=== PATIENT | male | born 1970 | race Caucasian/White ===

== ENCOUNTER 2017-01-18 17:02 | Observation (INO) | payer BC ==
--- NOTE | 2017-01-18 20:35 | PDOC ---
History of Present Illness - General Chief Complaint: Nausea/Vomiting Stated Complaint: CHEST PAIN Time Seen by Provider: 01/18/17 20:35 History Source: Patient - History of Present Illness Initial Comments: 01/18/17 21:46 36-year-old male with a history of diabetes presents to the emergency department complaining of epigastric abdominal discomfort described as 6/10 dull intermittent discomfort which radiates to the mid sternal chest region and right upper quadrant abdominal discomfort 6 days. Pain is exacerbated on movement and there are no alleviating factors. This discomfort is associated with nausea and vomiting 5 days that are nonbilious/nonbloody. Patient denies fever/chills/diarrhea, jaw pains, neck pains, extremity numbness or tingling sensation, shortness of breath, flank pains or urinary symptoms. Past History - Past Medical History Allergies/Adverse Reactions: Allergies Allergy/AdvReac Type Severity Reaction Status Date / Time lactose Allergy Unknown Verified 01/18/17 17:37 lactose intolerance AdvReac Uncoded 01/18/17 17:37 Home Medications: Ambulatory Orders NK [No Known Home Medication] 01/18/17 Anemia: No Asthma: No Cancer: No Cardiac Disorders: Yes (DVT) CVA: No COPD: No CHF: No Dementia: No Diabetes: Yes (MYONECROSIS R FOOT, LEFT FOOT ULCER) GI Disorders: (REFLUX) Disorders: No HTN: Yes Hypercholesterolemia: No Liver Disease: No Suicide Attempt (Hx): No Seizures: No Thyroid Disease: No - Surgical History Abdominal Surgery: No Appendectomy: No Cardiac Surgery: No Cholecystectomy: No Lung Surgery: No Neurologic Surgery: No Orthopedic Surgery: No - Family Disease History Family Disease History: Diabetes: Father - Immunization History Immunization Up to Date: Yes - Psycho/Social/Smoking Cessation Hx Anxiety: No Suicidal Ideation: No Smoking Status: No Smoking History: Never smoked Have you smoked in the past 12 months: No Number of Cigarettes Smoked Daily: 0 Information on smoking cessation initiated: No Hx Alcohol Use: No Drug/Substance Use Hx: No Substance Use Type: Alcohol Hx Substance Use Treatment: No Review of Systems - Review of Systems Able to Perform ROS?: Yes Comments:: 01/18/17 21:44 CONSTITUTIONAL: Absent: fever, chills, diaphoresis, generalized weakness, malaise, loss of appetite HEENT: Absent: rhinorrhea, nasal congestion, throat pain, throat swelling, difficulty swallowing, mouth swelling, ear pain, eye pain, visual Changes CARDIOVASCULAR: +CP Absent: loss of consciousness, palpitations, irregular heart rate, peripheral edema RESPIRATORY: Absent: cough, shortness of breath, dyspnea with exertion, orthopnea, wheezing, stridor, hemoptysis GASTROINTESTINAL: +epigastric/RUQ abdominal pain Absent: abdominal distension, nausea, vomiting, diarrhea, constipation, melena, hematochezia GENITOURINARY: Absent: dysuria, frequency, urgency, hesitancy, hematuria, flank pain, genital pain MUSCULOSKELETAL: Absent: myalgia, arthralgia, joint swelling SKIN: Absent: rash, itching, pallor HEMATOLOGIC/IMMUNOLOGIC: Absent: easy bleeding, easy bruising, lymphadenopathy, frequent infections ENDOCRINE: Absent: unexplained weight gain, unexplained weight loss, heat intolerance, cold intolerance NEUROLOGIC: Absent: headache, focal weakness or paresthesias, dizziness, unsteady gait, seizure, mental status changes, bladder or bowel incontinence PSYCHIATRIC: Absent: anxiety, depression, suicidal or homicidal ideation, hallucinations. Is the patient limited [place] proficient: No *Physical Exam - Vital Signs Last Vital Signs Temp Pulse Resp BP Pulse Ox 98.7 F 104 H 16 117/101 100 01/18/17 17:13 01/18/17 17:13 01/18/17 17:13 01/18/17 17:13 01/18/17 17:13 - Physical Exam Comments: 01/18/17 21:46 GENERAL: Well developed, well nourished. Awake and alert. No acute distress. HEENT: Normocephalic, atraumatic. PERRLA, EOMI. No conjunctival pallor. Sclera are non- icteric. Moist mucous membranes. Oropharynx is clear. NECK: Supple. Full ROM. No JVD. Carotid pulses 2+ and symmetric, without bruits. No thyromegaly. No lymphadenopathy. CARDIOVASCULAR: Regular rate and rhythm. No murmurs, rubs, or gallops. Distal pulses are 2+ and symmetric. PULMONARY: No evidence of respiratory distress. Lungs clear to auscultation bilaterally. No wheezing, rales or rhonchi. ABDOMINAL: Soft. Non-tender. Non-distended. No rebound or guarding. No organomegaly. Normoactive bowel sounds. MUSCULOSKELETAL Normal range of motion at all joints. No bony deformities or tenderness. No CVA tenderness. EXTREMITIES: No cyanosis. No clubbing. No edema. No calf tenderness. SKIN: Warm and dry. Normal capillary refill. No rashes. No jaundice. NEUROLOGICAL: Alert, awake, appropriate. Cranial nerves 2-12 intact. No deficits to light touch and temperature in face, upper extremities and lower extremities. No motor deficits in the in face, upper extremities and lower extremities. Normoreflexic in the upper and lower extremities. Normal speech. Toes are down- going bilaterally. Gait is normal without ataxia. PSYCHIATRIC: Cooperative. Good eye contact. Appropriate mood and affect. Heart Score/ECG Review - History History: Slightly suspicious - Electrocardiogram EKG: Normal - Age Age: >/= 65 - Risk Factors Risk Factors Heart Score: Yes Hx Diabetes Based on the list above the patient has:: 1-2 risk factors - Troponin Troponin: </= normal limit - Score Heart Score - Total: 3 ED Treatment Course - LABORATORY CBC & Chemistry Diagram: 01/18/17 20:13 01/19/17 00:42 - RADIOLOGY Radiograph Interpretation: 01/19/17 00:[address] abd/pelvis with PO/IV contrast: *DC/Admit/Observation/Transfer Diagnosis at time of Disposition: Duodenitis, Hypokalemia Intractable vomiting with nausea Qualifiers: Vomiting type: unspecified Qualified Code(s): R11.2 - Nausea with vomiting, unspecified - Discharge Dispostion Condition at time of disposition: Guarded Admit: Yes
[2017-01-18] MEDS ORDERED: SODIUM CHLORIDE 1,000 ML IV STA (20:37)
[2017-01-18] MEDS ORDERED: ONDANSETRON 4 MG/2 ML VIAL IVPUSH ONE (20:37)
[2017-01-18] MEDS ORDERED: ONDANSETRON 4 MG/2 ML VIAL ONE (20:38)
[2017-01-18 20:48] LABS: BASOPHIL 0.4 % (0-2.0); EOSINOPHIL 0.4 % (0-4.5); MCH 22.7 pg (25.7-33.7); MCHC 30.8 g/dl (32.0-35.9); MEAN CELL VOLUME 73.6 fl (80-96); MEAN PLT VOLUME 8.7 fl (7.5-11.1); NEUTROPHILS 83.4 % (42.8-82.8); PLATELET COUNT 353 K/MM3 (134-434); RDW 16.8 % (11.9-15.9); WHITE BLOOD COUNT 7.4 K/mm3 (4.0-10.0)
[2017-01-18] MEDS ORDERED: HYDROmorphone HCL CARPU-JECT 2 MG/1 ML DISP.SYRIN IVPUSH ONE (21:00)
[2017-01-18 21:07] LABS: AMYLASE 20 U/L (25-115)
--- NOTE | 2017-01-18 21:09 | PDOC ---
*Physical Exam - Vital Signs Last Vital Signs Temp Pulse Resp BP Pulse Ox 98.7 F 104 H 16 117/101 100 01/18/17 17:13 01/18/17 17:13 01/18/17 17:13 01/18/17 17:13 01/18/17 17:13 ED Treatment Course - LABORATORY CBC & Chemistry Diagram: 01/19/17 07:55 01/19/17 07:55 - ADDITIONAL ORDERS Additional order review: 01/18/17 20:13 RBC 5.35 D MCV 73.6 L MCHC 30.8 L RDW 16.8 H MPV 8.7 Neutrophils % 83.4 H Lymphocytes % 10.3 D Monocytes % 5.5 Eosinophils % 0.4 Basophils % 0.4 - Medications Given in the ED: ED Medications Discontinued Medications Generic Name Dose Route Start Last Admin Trade Name Freq PRN Reason Stop Dose Admin Ondansetron HCl 8 mg 01/18/17 20:37 01/18/17 20:50 Zofran Injection IVPUSH 01/18/17 20:38 8 mg ONCE ONE Administration Medical Decision Making - Medical Decision Making 01/18/17 21:09 agree with care from RICARDO Valentine *DC/Admit/Observation/Transfer Diagnosis at time of Disposition: Duodenitis, Intractable vomiting with nausea, Hypokalemia - Discharge Dispostion Condition at time of disposition: Guarded
[2017-01-18 21:12] LABS: ALBUMIN 2.2 g/dl (3.4-5.0); ANION GAP 16 (8-16); BILIRUBIN,TOTAL 0.5 mg/dL (0.2-1.0); CALCIUM 8.5 mg/dL (8.5-10.1); CO2 24 mmol/L (21-32); COCKROFT - GAULT 114.71; CREATININE 1.2 mg/dL (0.7-1.3); SGOT/AST 17 U/L (15-37); SGPT/ALT 10 U/L (12-78); TOT PROT 6.2 g/dl (6.4-8.2)
[2017-01-18 21:13] LABS: ALK PHOS 135 U/L (45-117)
[2017-01-18 21:16] LABS: GLUCOSE,RANDOM 482 mg/dL (74-106)
[2017-01-18] MEDS ORDERED: HYDROmorphone HCL CARPU-JECT 1 MG/1 ML DISP.SYRIN ONE (21:19)
[2017-01-18] MEDS ORDERED: INSULIN REGULAR HUMAN 100 UNITS/ML *VIAL IVPUSH ONE (21:19)
[2017-01-18] MEDS ORDERED: INSULIN (NOVOLOG) ASPART 100 UNITS/ML 10ML VIAL ONE (21:20)
[2017-01-18 21:42] LABS: TROPONIN I < 0.02 ng/ml (0.00-0.05)
[2017-01-18] MEDS ORDERED: POTASSIUM CHLORIDE TABS 20 MEQ TABLET.ER (FP) PO ONE (23:17)
[2017-01-19] MEDS ORDERED: POTASSIUM CHLORIDE TABS 20 MEQ TABLET.ER (FP) PO ONE (00:01)
[2017-01-19] MEDS ORDERED: METOCLOPRAMIDE HCL INJECTION 10 MG/2 ML VIAL IVPUSH ONE (00:09)
[2017-01-19] MEDS ORDERED: METOCLOPRAMIDE HCL INJECTION 10 MG/2 ML VIAL ONE (00:13)
[2017-01-19 02:03] LABS: ALBUMIN 2.1 g/dl (3.4-5.0); ALK PHOS 130 U/L (45-117); ANION GAP 15 (8-16); BILIRUBIN,TOTAL 0.4 mg/dL (0.2-1.0); CALCIUM 8.1 mg/dL (8.5-10.1); CO2 25 mmol/L (21-32); COCKROFT - GAULT 152.94; CREATININE 0.9 mg/dL (0.7-1.3); GLUCOSE,RANDOM 284 mg/dL (74-106); SGOT/AST 13 U/L (15-37); SGPT/ALT 10 U/L (12-78); TOT PROT 5.8 g/dl (6.4-8.2)
[2017-01-19] MEDS ORDERED: PANTOPRAZOLE SODIUM 40 MG in SODIUM CHLORIDE 100 ML IVPB ONE (02:11)
[2017-01-19] MEDS ORDERED: PANTOPRAZOLE SODIUM 200 ML IVPB ONE (02:36)
[2017-01-19] MEDS ORDERED: ONDANSETRON 4 MG/2 ML VIAL IVPB PRN (02:41)
[2017-01-19] MEDS ORDERED: LORAZEPAM CARPU-JECT 2 MG/ML DISP.SYRIN IVPUSH ONE (02:42)
[2017-01-19] MEDS ORDERED: LORAZEPAM CARPU-JECT 2 MG/ML DISP.SYRIN ONE (02:47)
[2017-01-19] MEDS ORDERED: ONDANSETRON *ODT* 4 MG TABLET ONE (02:47)
[2017-01-19] MEDS ORDERED: KCL 10 MEQ IVPB 300 ML IVPB ONE (02:49)
[2017-01-19] MEDS: KCL 10 MEQ IVPB 100 ML IVPB SCH ×3 (03:00→06:12)
[2017-01-19] MEDS ORDERED: METOCLOPRAMIDE HCL INJECTION 10 MG/2 ML VIAL IVPB PRN (03:13)
[2017-01-19] MEDS ORDERED: LORAZEPAM CARPU-JECT 2 MG/ML DISP.SYRIN IVPUSH PRN (03:22)
--- NOTE | 2017-01-19 03:24 | HP ---
CHIEF COMPLAINT: Abdominal pain, N/V PCP: none, Endocrine: Dr. Warren HISTORY OF PRESENT ILLNESS: This is a 46 year old male with a past medical history of DM, L BKA, GERD w/ ulcers, HTN, ETOH who presented with abdominal pain with nausea and vomiting that has not responded fully to treatment. Pt states the pain is improved, but the nausea and vomiting persist. ER course was notable for: (1) K 3.3, Gluc 482 (2) Given 1L NS (3) Given dilaudid 2mg, zofran 8, reglan 10 Recent Travel: pt denies PAST MEDICAL HISTORY: DM - does not take meds, refused in past right elbow infection- ? nec fasc, txfr to [facility] necrotizing soft tissue infection left buttock--MRSA GERD w/ h/o ulcers as per pt HTN PAST SURGICAL HISTORY: L BKA 2012 R 4th toe amputation extensive I&D right elbow infection Social History: Smoking: occ- less than 5 cig/week Alcohol: 5-6 drinks daily, last drink Monday or Monday Drugs: cocaine last week, denies habitual use Family History: unknown, pt adopted Allergies lactose Allergy (Unknown, Verified 01/18/17 17:37) lactose intolerance Adverse Reaction (Uncoded 01/18/17 17:37) HOME MEDICATIONS: 3 Medication Instructions Recorded NK [No Known Home Medication] 01/18/17 REVIEW OF SYSTEMS CONSTITUTIONAL: Absent: fever, chills, diaphoresis, generalized weakness, malaise, loss of appetite, weight change HEENT: Absent: rhinorrhea, nasal congestion, throat pain, throat swelling, difficulty swallowing, mouth swelling, ear pain, eye pain, visual changes CARDIOVASCULAR: Present: chest pain Absent: syncope, palpitations, irregular heart rate, lightheadedness, peripheral edema RESPIRATORY: Absent: cough, shortness of breath, dyspnea with exertion, orthopnea, wheezing, stridor, hemoptysis GASTROINTESTINAL: Present: abdominal pain, nausea, vomiting Absent: abdominal distension, diarrhea, constipation, melena, hematochezia GENITOURINARY: Absent: dysuria, frequency, urgency, hesitancy, hematuria, flank pain, genital pain MUSCULOSKELETAL: Absent: myalgia, arthralgia, joint swelling, back pain, neck pain SKIN: Absent: rash, itching, pallor HEMATOLOGIC/IMMUNOLOGIC: Absent: easy bleeding, easy bruising, lymphadenopathy, frequent infections ENDOCRINE: Absent: unexplained weight gain, unexplained weight loss, heat intolerance, cold intolerance NEUROLOGIC: Absent: headache, focal weakness or paresthesias, dizziness, unsteady gait, seizure, mental status changes, bladder or bowel incontinence PSYCHIATRIC: Absent: anxiety, depression, suicidal or homicidal ideation, hallucinations. PHYSICAL EXAMINATION Vital Signs - 24 hr 3 01/18/17 01/19/17 17:13 00:30 Temperature 98.7 F 97.6 F Pulse Rate 104 H Pulse Rate [ 93 H Right] Respiratory 16 16 Rate Blood Pressure 117/101 Blood Pressure 156/108 [Left Arm] O2 Sat by Pulse 100 100 Oximetry (%) GENERAL: Awake, alert, and fully oriented, in no acute distress. HEAD: Normal with no signs of trauma. EYES: Pupils equal, round and reactive to light, extraocular movements intact, sclera anicteric, conjunctiva clear. No lid lag. EARS, NOSE, THROAT: Ears normal, nares patent, oropharynx clear without exudates. Moist mucous membranes. NECK: Normal range of motion, supple without lymphadenopathy, JVD, or masses. LUNGS: Breath sounds equal, clear to auscultation bilaterally. No wheezes, and no crackles. No accessory muscle use. HEART: Regular rate and rhythm, normal S1 and S2 without murmur, rub or gallop. ABDOMEN: Soft, not distended, normoactive bowel sounds, no guarding, no rebound , no masses. No hepatomegaly or splenomegaly. + tenderness to epigastric area and LUQ MUSCULOSKELETAL: Normal range of motion at all joints. No bony deformities or tenderness. No CVA tenderness. UPPER EXTREMITIES: 2+ pulses, warm, well-perfused. No cyanosis. No clubbing. No peripheral edema. Right arm with surgical scars, healed LOWER EXTREMITIES: 2+ pulses, warm, well-perfused. No calf tenderness. No peripheral edema. Left BKA, right 4th toe amputation, all healed NEUROLOGICAL: Cranial nerves II-XII intact. Normal speech. Normal gait. PSYCHIATRIC: Cooperative. Good eye contact. Appropriate mood and affect. SKIN: Warm, dry, normal turgor, no rashes or lesions noted, normal capillary refill. Laboratory Results - last 24 hr 3 01/18/17 01/18/17 01/18/17 20:13 20:13 20:13 WBC 7.4 D RBC 5.35 D Hgb 12.1 D Hct 39.4 D MCV 73.6 L MCHC 30.8 L RDW 16.8 H Plt Count 353 D MPV 8.7 Neutrophils % 83.4 H Lymphocytes % 10.3 D Monocytes % 5.5 Eosinophils % 0.4 Basophils % 0.4 Sodium 135 L D Potassium 3.3 L Chloride 95 L Carbon Dioxide 24 D Anion Gap 16 BUN 11 D Creatinine 1.2 D Creat Clearance w eGFR > 60 POC Glucometer Random Glucose 482 H* D Calcium 8.5 D Total Bilirubin 0.5 D AST 17 ALT 10 L D Alkaline Phosphatase 135 H D Creatine Kinase Troponin I Total Protein 6.2 L Albumin 2.2 L Total Amylase 20 L Lipase 135 3 01/18/17 01/18/17 01/19/17 21:24 23:01 00:42 WBC RBC Hgb Hct MCV MCHC RDW Plt Count MPV Neutrophils % Lymphocytes % Monocytes % Eosinophils % Basophils % Sodium 140 Potassium 3.2 L Chloride 100 Carbon Dioxide 25 Anion Gap 15 BUN 11 Creatinine 0.9 D Creat Clearance w eGFR > 60 POC Glucometer [phone] Random Glucose 284 H D Calcium 8.1 L Total Bilirubin 0.4 AST 13 L D ALT 10 L Alkaline Phosphatase 130 H Creatine Kinase 65 Troponin I < 0.02 Total Protein 5.8 L Albumin 2.1 L Total Amylase Lipase ECG: NSR, rate 96, QTC 505, no acute ST/T changes CT/ABDOMEN PELVIS CT WITH CONTR Epigastric pain. Questionable small bowel obstruction. No bowel movement for [address] scan of the abdomen and pelvis following oral and intravenous contrast. Coronal and sagittal reformatted images were obtained 96 cc of Omnipaque 350 was intravenously injected Comparison: Prior CT scan of the pelvis dated 06/02/2015 Visualized lung base appears unremarkable and the heart is within normal limits in size. Evaluation of the liver, spleen, pancreas, gallbladder, both adrenal glands and both kidneys appear unremarkable. There is nondistention of the duodenum up to its junction with the jejunum suggestive of wall thickening. The rest of the small bowel appears unremarkable. There is no evidence of small bowel obstruction. No enlarged retroperitoneal lymph nodes are identified. No free fluid or free air in the abdomen pelvis. Normal stool burden in the colon with a couple of diverticula at the junction of the distal descending and proximal sigmoid colon and without evidence of acute diverticulitis. Normal-appearing terminal ileum and appendix. Perirectal and pericecal fat is clear. Moderately distended urinary bladder without wall thickening. Normal size prostate gland. Visualized osseous structures appear intact. Impression: Nondistention with suggestion of thickening of the duodenum including its junction with the jejunum. Rule out duodenitis. Inflammatory versus infectious. No other CT evidence of an acute process in the abdomen and pelvis. Correlate clinically for further evaluation CHEST X-RAY PORTABLE* Chest and abdominal pain. Portable chest x-ray AP sitting. Since prior chest x-ray dated 07/20, the cardiac silhouette remains within normal limits in size. There are mild perihilar increased lung markings. Mediastinum and visualized osseous structures appear intact Impression No significant interval change or acute lung disease is present. ASSESSMENT/PLAN: 46yM with PMH DM, HTN, L BKA, GERD, ETOH presented with abdominal pain and N/V that has not fully responded to treatment. He is being admitted for further observation. abdominal pain, likely alcoholic gastritis/duodenitis - protonix 40mg IV QD - reglan 10mg q6h PRN - NPO for now, NS @ 125cc/hr - consider GI consult if not improving hypokalemia - likely due to excessive vomiting - tolerated po repletion, repeat CMP possibly drawn too early for value to increase, but further decline present - replete with 10mEq IVPB x 3 runs HTN - on no home medications, consider starting MAYA as he has been on same in past; however, pt noncompliant with same in past DM - cont BGM TIDAC / HS with novolog sliding scale - f/u with endocrine as outpatient as pt has always refused medications. ETOH - monitor for s/s withdrawal and tx DVT PPX - defer chemoprophylaxis for now FEN - NS @ 125cc/hr - repeat BMP inc mag and phos in am - NPO until no further vomiting Dispo: Pt currently requires inpatient observation for management of his emergent condition. Visit type - Emergency Visit Emergency Visit: Yes ED Registration Date: 01/18/17 Care time: The patient presented to the Emergency Department on the above date and was hospitalized for further evaluation of their emergent condition. - New Patient This patient is new to me today: Yes Date on this admission: 01/19/17 - Critical Care Critical Care patient: No
[2017-01-19] MEDS: LISINOPRIL 10 MG TABLET (FP) PO SCH ×2 (04:57→09:52)
[2017-01-19] MEDS: SODIUM CHLORIDE 1,000 ML IV SCH ×3 (05:01→13:59)
[2017-01-19] MEDS: INSULIN SLIDING SCALE (NOVOLOG) 1 VIAL SQ SCH ×5 (06:17→21:11)
[2017-01-19 07:01] VITALS: BMI 33.2
[2017-01-19 08:46] LABS: BASOPHIL 0.6 % (0-2.0); EOSINOPHIL 0.8 % (0-4.5); MCH 23.2 pg (25.7-33.7); MCHC 31.4 g/dl (32.0-35.9); MEAN PLT VOLUME 7.8 fl (7.5-11.1); NEUTROPHILS 78.2 % (42.8-82.8); PLATELET COUNT 361 K/MM3 (134-434); RDW 17.1 % (11.9-15.9); WHITE BLOOD COUNT 9.4 K/mm3 (4.0-10.0)
[2017-01-19 09:14] LABS: CALCIUM 8.4 mg/dL (8.5-10.1); COCKROFT - GAULT 153.81; CREATININE 0.9 mg/dL (0.7-1.3); MAGNESIUM 2.6 mg/dL (1.8-2.4); PHOSPHOROUS 2.3 mg/dL (2.5-4.9)
[2017-01-19] MEDS ORDERED: MAG HYDROX/AL HYDROX/SIMETH 30 ML UNIT-DOSE CUP PO PRN (11:45)
[2017-01-19] MEDS ORDERED: chlordiazePOXIDE HCL 25 MG CAPSULE PO PRN (11:55)
[2017-01-19] MEDS ORDERED: PANTOPRAZOLE SODIUM 100 ML IVPB SCH (12:00)
[2017-01-19] MEDS ORDERED: LIDOCAINE VISCOUS 2% ORAL/TOP 20 ML UNIT-DOSE CUP MM PRN (12:00)
--- NOTE | 2017-01-19 12:41 | EKG ---
Test Reason : Blood Pressure : / mmHG Vent. Rate : 096 BPM Atrial Rate : 096 BPM P-R Int : 142 ms QRS Dur : 078 ms QT Int : 400 ms P-R-T Axes : 056 016 010 degrees QTc Int : 505 ms NORMAL SINUS RHYTHM PROLONGED QT ABNORMAL ECG WHEN COMPARED WITH ECG OF 23-MAY-2016 21:13, QUESTIONABLE CHANGE IN QRS DURATION Confirmed by BIMAL SOARES MD ([id number]) on 01/19/2017 12:41:26 PM Referred By: Confirmed By:BIMAL SOARES MD
[2017-01-19] MEDS ORDERED: LABETALOL HCL 5 MG/1 ML (100MG/20 ML VIAL) IVPB ONE (14:15)
[2017-01-19] MEDS ORDERED: INSULIN (NOVOLOG) ASPART 100 UNITS/ML 10ML VIAL ONE (16:26)
[2017-01-19] MEDS ORDERED: SODIUM CHLORIDE 1,000 ML IV SCH (17:03)
[2017-01-19] MEDS ORDERED: PT OWN MED DRAWER 7, Y5N ONE (17:22)
[2017-01-20] MEDS: INSULIN SLIDING SCALE (NOVOLOG) 1 VIAL SQ SCH (06:39)
[2017-01-20 08:12] VITALS: BP 180/62; PULSE 95; TEMP 98.1
--- NOTE | 2017-01-20 09:53 | DS ---
Physical Exam: SUBJECTIVE: Patient seen and examined yesterday. Today, he signed himself out AMA before able to assess. Per RN complaining: "he wants to go home, eat a full meal, not clears, he would not wait any longer and wanted a prescription" OBJECTIVE: Vital Signs Period Temp Pulse Resp BP Sys/Monet Pulse Ox Last 24 Hr 98.0 F-99.2 F 79-107 18-20 136-180/62-110 98-99 PHYSICAL EXAM on 01/20 Neuro: alert, awake, cn 2-12intact, tearful Pulm: CTAB CV: s1 s2 rrr no mrg Abd: no tenderness, reported burning referring to chest Ext: L BKA, R arm graft healed Laboratory Results - last 24 hr 01/19/17 01/19/17 01/19/17 11:37 16:24 21:04 POC Glucometer 225 265 377 01/20/17 06:15 POC Glucometer 220 HOSPITAL COURSE: Date of Admission:01/19/17 Date of Discharge: 01/20/17 Minutes to complete discharge: 35 Discharge Summary Reason For Visit: DUONDENITIS HYPOKALEMIA INCTRACTABLE VOMIT Hospital Course: Initial Hospital Course: Briefly, this 46 year old male with a past medical history of DM, L BKA, GERD w / ulcers, HTN, ETOH presented with abdominal pain with nausea and vomiting and did not responded fully to treatment. Pt states the pain is improved, but the nausea and vomiting persisted. Subsequent Hospital Course/Progress Note/Discharge Summary: Patient was seen and examined yesterday 01/19. He was tearful in the bed saying he's very hungry and would like to eat. He said it hurt his chest when he talked and needed something for the burning. He was still vomiting light green clear vomitus Initially refusing any treatment he was given maalox and protonix IV, viscous lidocaine, IV reglan to which relieved his symptoms. For his elevated BP, labetaolol 10mg IVPB with appropriate response. He was feeling better and advanced to clear liquids. Following diet, he had x2 BM in the bed and was made NPO again. Per RN he refused IVF and continued to get into an argument with his . I discussed the plan of care and findings with his and she said he would like him to say in the hospital until he gets better. I discussed with the patient it would be in his best interest to stay in the hospital and not leave AMA. He would be at risk for electrolyte abnormalities, dehydration, heart arrhythmias and syncope, and . He said he would stay. This morning patient was inpatient requesting change in diet and wanting to go home. He was unwilling to wait, requested RN to remove IV's and signed out AMA. Condition: Guarded - Instructions Disposition: AGAINST MEDICAL ADVICE - Home Medications Comprehensive Discharge Medication List: Ambulatory Orders NK [No Known Home Medication] 01/18/17 This patient is new to me today: Yes Date on this admission: 01/20/17 Emergency Visit: Yes ED Registration Date: 01/19/17 Care time: The patient presented to the Emergency Department on the above date and was hospitalized for further evaluation of their emergent condition. Critical Care patient: No - Discharge Referral Referred to [facility] No
[2017-01-20] MEDS ORDERED: LISINOPRIL 10 MG TABLET (FP) PO SCH (10:00)
== END 2017-01-20 09:27 | disposition left against medical advice (07) ==
LOC: JER 17:02 → JERBED 01-19 02:13 → J7W 01-19 04:29
PROVIDERS: ADMIT Internal Medicine; ATTEND Nurse Practitioner Acute Care
PROC: 3E033NZ Introduction of Analgesics, Hypnotics, Sedatives into Peripheral Vein, Percutaneous Approach (ICD-10-PCS; principal; 2017-01-19)
PROC: 3E033VG Introduction of Insulin into Peripheral Vein, Percutaneous Approach (ICD-10-PCS; 2017-01-19)
PROC: 3E013VG Introduction of Insulin into Subcutaneous Tissue, Percutaneous Approach (ICD-10-PCS; 2017-01-19)
DX: K29.80 Duodenitis without bleeding (principal); E87.6 Hypokalemia; R11.2 Nausea with vomiting, unspecified; E11.9 Type 2 diabetes mellitus without complications; Z86.718 Personal history of other venous thrombosis and embolism; K21.9 Gastro-esophageal reflux disease without esophagitis; I10 Essential (primary) hypertension; Z89.512 Acquired absence of left leg below knee; Z89.421 Acquired absence of other right toe(s); F10.20 Alcohol dependence, uncomplicated
CPT/HCPCS: 36415; 71010-TC; 74177-TC; 80048; 80053; 82150; 82550; 83690; 83735; 84100; 84484; 85025; 93005; 93010; 99285-25; G0378; Q9967

== ENCOUNTER 2017-05-01 08:59 | Emergency (ER) | payer BC ==
[2017-05-01 09:09] VITALS: TEMP 98.1; BMI 31.5
--- NOTE | 2017-05-01 09:39 | PDOC ---
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 The patient states that due to recent weight loss he was placed in a slimmer prosthetic that has been irritating his leg. The patient noticed a small blister to his amputation 8 days ago which has since worsened, becoming more swollen, bleeding, and pussing but he denies any pain to the area. He reports that 5 days ago he went to his pharmacy and was given polysporin in which he said helped along with keeping off his prosthetic for a few days. The patient states that his has occurred in the past but caused sepsis. He denies any fever , chills, nausea, vomiting, diarrhea, cough, SOB, CP, or urinary symptoms. The patient has a history of MRSA. He is requesting to be followed up as an outpatient due to his upcoming vacation. The patient follows up with Costa Jennings at the wound center. <Kelsi Dimas - Last Filed: 05/01/17 12:47> <Caden Virgen - Last Filed: 05/01/17 13:25> - General Chief Complaint: Wound Stated Complaint: LT LEG WOUND Past History <Kelsi Dimas - Last Filed: 05/01/17 12:47> - Past Medical History Anemia: No Asthma: No Cancer: No Cardiac Disorders: Yes (DVT) CVA: No COPD: No CHF: No Dementia: No Diabetes: No (HYPOGLYCEMIC) GI Disorders: (REFLUX) Disorders: No HTN: Yes Hypercholesterolemia: No Liver Disease: No Suicide Attempt (Hx): No Seizures: No Thyroid Disease: No - Surgical History Abdominal Surgery: No Appendectomy: No Cardiac Surgery: No Cholecystectomy: No Lung Surgery: No Neurologic Surgery: No Orthopedic Surgery: No - Family Disease History Family Disease History: Diabetes: Father - Immunization History Immunization Up to Date: Yes - Psycho/Social/Smoking Cessation Hx Anxiety: No Suicidal Ideation: No Smoking Status: No Smoking History: Never smoked Have you smoked in the past 12 months: No Number of Cigarettes Smoked Daily: 0 Information on smoking cessation initiated: No Hx Alcohol Use: No Drug/Substance Use Hx: No Substance Use Type: Alcohol Hx Substance Use Treatment: No <PromiseCaden - Last Filed: 05/01/17 13:25> - Past Medical History Allergies/Adverse Reactions: Allergies Allergy/AdvReac Type Severity Reaction Status Date / Time No Known Allergies Allergy Verified 05/01/17 09:04 Home Medications: Ambulatory Orders Sulfamethoxazole/Trimethoprim [Bactrim Ds -] 1 tab PO BID #14 tablet 05/01/17 Review of Systems - Review of Systems Able to Perform ROS?: Yes Comments:: 05/01/17 10:33 GENERAL/CONSTITUTIONAL: No fever or chills. No weakness. HEAD, EYES, EARS, NOSE AND THROAT: No change in vision. No ear pain or discharge. No sore throat. CARDIOVASCULAR: No chest pain or shortness of breath. RESPIRATORY: No cough, wheezing, or hemoptysis. GASTROINTESTINAL: No nausea, vomiting, diarrhea or constipation. GENITOURINARY: No dysuria, frequency, or change in urination. MUSCULOSKELETAL: No joint or muscle swelling or pain. No neck or back pain. SKIN: Present: ulcer on left amputation site NEUROLOGIC: No headache, vertigo, loss of consciousness, or change in strength/ sensation. ENDOCRINE: No increased thirst. No abnormal weight change. HEMATOLOGIC/LYMPHATIC: No anemia, easy bleeding, or history of blood clots. ALLERGIC/IMMUNOLOGIC: No hives or skin allergy. All Other Systems: Reviewed and Negative <JudieKelsi - Last Filed: 05/01/17 12:47> *Physical Exam - Vital Signs Last Vital Signs Temp Pulse Resp BP Pulse Ox 98.1 F 90 18 151/100 100 05/01/17 09:04 05/01/17 09:04 05/01/17 09:04 05/01/17 09:04 05/01/17 09:04 - Physical Exam Comments: 05/01/17 10:35 GENERAL: Awake, alert, and fully oriented, in no acute distress HEAD: No signs of trauma EYES: PERRLA, EOMI, sclera anicteric, conjunctiva clear ENT: Auricles normal inspection, hearing grossly normal, nares patent, oropharynx clear without exudates. Moist mucosa NECK: Normal ROM, supple, no lymphadenopathy, JVD, or masses LUNGS: Breath sounds equal, clear to auscultation bilaterally. No wheezes, and no crackles HEART: Regular rate and rhythm, normal S1 and S2, no murmurs, rubs or gallops ABDOMEN: Soft, nontender, normoactive bowel sounds. No guarding, no rebound. No masses EXTREMITIES: 6 x 4 cm black eschar with erythematous margins and mild swelling on his left fibular stump. No clubbing or cyanosis. No cords, erythema, or tenderness NEUROLOGICAL: Cranial nerves II through XII grossly intact. Normal speech, normal gait SKIN: Warm, Dry <Kelsi Dimas - Last Filed: 05/01/17 12:47> - Vital Signs Last Vital Signs Temp Pulse Resp BP Pulse Ox 98.1 F 90 18 151/100 100 05/01/17 09:04 05/01/17 09:04 05/01/17 09:04 05/01/17 09:04 05/01/17 09:04 <Caden Virgen - Last Filed: 05/01/17 13:25> Heart Score/ECG Review - ECG Intrepretation Comment:: 05/01/17 11:27 ECG obtained at 11:22 Normal sinus at 85 bpm <Kelsi Dimas Last Filed: 05/01/17 12:47> ED Treatment Course - LABORATORY CBC & Chemistry Diagram: 05/01/17 11:20 05/01/17 11:20 - RADIOLOGY Radiograph Interpretation: 05/01/17 12:17 Chest x-ray as reviewed by Dr. Alarcon reports no acute pathology. <Kelsi Dimas - Last Filed: 05/01/17 12:47> - LABORATORY CBC & Chemistry Diagram: 05/01/17 11:20 05/01/17 11:20 <Caden Virgen - Last Filed: 05/01/17 13:25> Medical Decision Making - Medical Decision Making 05/01/17 10:[address] Costa Jennings. Call was connected immediately and case was discussed. He will come in to see and assess the patient. 05/01/17 12:47 Dr. Jennings saw he patient in the ED, agreed with discharge and the patient will follow up at the wound center on Monday morning. <eleanortalatKelsi - Last Filed: 05/01/17 12:47> *DC/Admit/Observation/Transfer - Attestations Scribe Attestion: 05/01/17 10:34 Documentation prepared by Kelsi Dimas, acting as special forces medical sergeant for Caden Virgen DO. <Kelsi Dimas - Last Filed: 05/01/17 12:47> - Discharge Dispostion Admit: No - Attestations Physician Attestion: 05/01/17 09:38 I, Dr. Caden Virgen, attest that this document has been prepared under my direction and personally reviewed by me in its entirety. I further attest, that it accurately reflects all work, treatment, procedures and medical decision -making performed by me. <Caden Virgen - Last Filed: 05/01/17 13:25> Diagnosis at time of Disposition: Cellulitis and abscess of left leg - Discharge Dispostion Disposition: HOME Condition at time of disposition: Improved - Prescriptions Prescriptions: Sulfamethoxazole/Trimethoprim [Bactrim Ds -] 1 tab PO BID #14 tablet - Referrals Referrals: Costa Jennings MD [Staff Physician] - - Patient Instructions Printed Discharge Instructions: Cellulitis Additional Instructions: Jonatan Keep your appointment with Dr. Jennings on Monday morning at 8:30 for debridment. Start the Bactrim DS latrer today. Return to us if any problems. Get your prosthesis adjusted so that it does not cause this problem again. Best- Dr. Caden Virgen
[2017-05-01] MEDS ORDERED: VANCOMYCIN 1,000 MG in DEXTROSE 5%-WATER - 250 ML IVPB ONE (10:28)
[2017-05-01] MEDS ORDERED: VANCOMYCIN 1 GRAM (PRE-DOCKED) 250 ML IVPB ONE (11:25)
[2017-05-01 11:53] LABS: ALBUMIN 2.6 g/dl (3.4-5.0); ANION GAP 11 (8-16); CALCIUM 8.6 mg/dL (8.5-10.1); CO2 23 mmol/L (21-32); CREATININE 1.1 mg/dL (0.7-1.3); SGOT/AST 28 U/L (15-37)
[2017-05-01 11:54] LABS: VENOUS BLOOD GAS HCO3 22.8 meq/L (19-25); VENOUS PH 7.27 (7.32-7.42)
[2017-05-01 11:55] LABS: ALK PHOS 300 U/L (45-117); BASOPHIL 0.4 % (0-2.0); BILIRUBIN,TOTAL 0.3 mg/dL (0.2-1.0); CPK 122 IU/L (39-308); EOSINOPHIL 3.9 % (0-4.5); MCH 24.2 pg (25.7-33.7); MCHC 32.4 g/dl (32.0-35.9); MEAN CELL VOLUME 74.5 fl (80-96); MEAN PLT VOLUME 8.6 fl (7.5-11.1); NEUTROPHILS 77.6 % (42.8-82.8); PLATELET COUNT 351 K/MM3 (134-434); RDW 15.7 % (11.9-15.9); TOT PROT 6.6 g/dl (6.4-8.2); WHITE BLOOD COUNT 8.1 K/mm3 (4.0-10.0)
[2017-05-01 12:04] LABS: SGPT/ALT 25 U/L (12-78); TROPONIN I < 0.02 ng/ml (0.00-0.05)
[2017-05-01 12:06] LABS: GLUCOSE,RANDOM 499 mg/dL (74-106)
[2017-05-01 12:13] LABS: URINE APPEARANCE CLEAR; URINE BILIRUBIN NEGATIVE (NEGATIVE); URINE BLOOD NEGATIVE (NEGATIVE); URINE COLOR STRAW; URINE GLUCOSE (UA) 3+ (NEGATIVE); URINE KETONE NEGATIVE (NEGATIVE); URINE LEUK ESTERASE NEGATIVE (NEGATIVE); URINE NITRITE NEGATIVE (NEGATIVE); URINE UROBILINOGEN NEGATIVE mg/dL (0.2-1.0)
[2017-05-01 12:14] LABS: URINE PROTEIN 3+ (NEGATIVE)
[2017-05-01 12:19] LABS: URINE RBC 1 /hpf (0-3); URINE WBC 2 /hpf (3-5)
[2017-05-01 12:34] LABS: INR 0.9 (0.82-1.09); PROTHROMBIN TIME (PATIENT) 9.9 SEC (9.98-11.88)
[2017-05-01 12:37] LABS: ACTIVATED PTT 30.1 SECONDS (26.9-34.4)
[2017-05-01 13:55] VITALS: BP 162/75; PULSE 92
--- NOTE | 2017-05-01 17:19 | EKG ---
Test Reason : Blood Pressure : / mmHG Vent. Rate : 085 BPM Atrial Rate : 085 BPM P-R Int : 156 ms QRS Dur : 088 ms QT Int : 376 ms P-R-T Axes : 018 -04 013 degrees QTc Int : 447 ms NORMAL SINUS RHYTHM NORMAL ECG WHEN COMPARED WITH ECG OF 18-JAN-2017 17:46, QT HAS SHORTENED Confirmed by HENRRY MELCHOR MD ([id number]) on 05/01/2017 5:18:56 PM Referred By: Confirmed By:HENRRY MELCHOR MD
== END 2017-05-01 13:55 | disposition home or self-care (01) ==
LOC: JER 08:59
DX: L03.116 Cellulitis of left lower limb (principal); E11.9 Type 2 diabetes mellitus without complications; Z89.512 Acquired absence of left leg below knee; I10 Essential (primary) hypertension; Z86.718 Personal history of other venous thrombosis and embolism
CPT/HCPCS: 36415; 71010-TC; 80053; 81003; 81015; 82803; 83605; 84484; 85025; 85610; 85730; 87040; 87070; 87086; 87186; 87205; 93005; 93010; 99283-25

== ENCOUNTER 2017-06-16 23:12 | Inpatient (IN) | payer BC, OTHER ==
--- NOTE | 2017-06-17 00:02 | PDOC ---
Attending Attestation - Resident Resident Name: Modesto Combs - ED Attending Attestation I have performed the following: I have examined & evaluated the patient, The case was reviewed & discussed with the resident, I agree w/resident's findings & plan, Exceptions are as noted - HPI HPI: 06/16/17 23:59 47yo male wit h/o left bka, nec fascitis twice, here today with c/o left leg pain. started one week ago. saw wound doctor and dr howe one week ago. not taking abx currently. states he had subjective fever 5 days ago. here tonight because of pain. no current fever or chillls. has been applying local wound care to his left leg. - Physicial Exam PE: 06/17/17 00:01 awake alert lungs clear heart rrr no mrg. abd soft nt nd. left leg bka. left stump wound with oozing, min drainage. post hamstring ttp mild erythema. nuero alert oriented x 3 - Medical Decision Making 06/17/17 00:01 diffeeretnial: osteo, infection cellulitis, fascitis. plan labs septic workup. xray chest and leg. Heart Score/ECG Review #1 General ECG Interpretation: Sinus Rhythm, Normal Rate (92 bpm), Normal Intervals , No acute ischemic changes
--- NOTE | 2017-06-17 00:21 | PDOC ---
History of Present Illness - General Chief Complaint: Pain, Acute Stated Complaint: LEG PAIN Time Seen by Provider: 06/16/17 23:26 History Source: Patient Exam Limitations: No Limitations - History of Present Illness Initial Comments: 06/17/17 00:22 Patient is 47M with history of DM, right elbow nec fasc s/p surgical debridement , necrotizing soft tissue infection in left buttock (MRSA), GERD, chronic wound on left leg receiving hyperbarics and L BKA here today complaining of left sided leg pain. The pain is located behind the left knee radiating up the posterior thight. Patient is complaining of associated nausea, vomiting, fevers and chills. He says that he felt like he had the flu 4 days ago, with associated body aches and fevers. He has a chronic draining wound on his left leg that he's been following with hyperbarics and Dr Jennings. He does not see any PCP. Past History - Past Medical History Allergies/Adverse Reactions: Allergies Allergy/AdvReac Type Severity Reaction Status Date / Time No Known Allergies Allergy Verified 06/16/17 23:22 Home Medications: Ambulatory Orders Collagenase Clostridium Hist. [Santyl] 1 applic TP DAILY #1 oint...g. 05/26/17 Oxycodone HCl/Acetaminophen [Percocet 10-325 mg Tablet] 1 each PO Q6H PRN Anemia: No Asthma: No Cancer: No Cardiac Disorders: Yes (DVT) CVA: No COPD: No CHF: No Dementia: No Diabetes: Yes (pt denies taking any meds) GI Disorders: (REFLUX) Disorders: No HTN: Yes Hypercholesterolemia: No Liver Disease: No Seizures: No Thyroid Disease: No - Surgical History Abdominal Surgery: No Appendectomy: No Cardiac Surgery: No Cholecystectomy: No Lung Surgery: No Neurologic Surgery: No Orthopedic Surgery: No - Family Disease History Family Disease History: Diabetes: Father - Immunization History Immunization Up to Date: Yes - Suicide/Smoking/Psychosocial Hx Smoking Status: No Smoking History: Unknown if ever smoked Have you smoked in the past 12 months: No Number of Cigarettes Smoked Daily: 0 Information on smoking cessation initiated: No Hx Alcohol Use: No Drug/Substance Use Hx: No Substance Use Type: Alcohol Hx Substance Use Treatment: No Review of Systems - Review of Systems Comments:: 06/17/17 00:27 GENERAL/CONSTITUTIONAL: Positive for fevers and chills. HEAD, EYES, EARS, NOSE AND THROAT: No change in vision. No sore throat. CARDIOVASCULAR: No chest pain or shortness of breath RESPIRATORY: No cough, wheezing, or hemoptysis. GASTROINTESTINAL: Positive for nausea and vomiting. No constipation or diarrha GENITOURINARY: No dysuria, frequency, or change in urination. MUSCULOSKELETAL: Positive for left sided leg pain. No back pain. SKIN: No rash NEUROLOGIC: No headache, vertigo, loss of consciousness, or change in strength/ sensation. ENDOCRINE: No increased thirst. No abnormal weight change ALLERGIC/IMMUNOLOGIC: No hives or skin allergy. *Physical Exam - Vital Signs Last Vital Signs Temp Pulse Resp BP Pulse Ox 98.5 F 98 H 22 81/51 95 06/16/17 23:22 06/16/17 23:22 06/16/17 23:22 06/16/17 23:22 06/16/17 23:22 - Physical Exam Comments: 06/17/17 00:28 GENERAL: Awake, alert, and fully oriented, in no acute distress HEAD: No signs of trauma, normocephalic, atraumatic EYES: PERRLA, EOMI, sclera anicteric, conjunctiva clear ENT: Auricles normal inspection, hearing grossly normal, nares patent, oropharynx clear without exudates. Moist mucosa LUNGS: No distress, speaks full sentences, clear to auscultation bilaterally HEART: Regular rate and rhythm, normal S1 and S2, no murmurs, rubs or gallops, peripheral pulses normal and equal bilaterally. ABDOMEN: Soft, nontender, normoactive bowel sounds. No guarding, no rebound. No masses EXTREMITIES: Left sided BKA, chronic 3x4cm wound with drainage and foul odor, no crepitus in posterior leg, tender to palpation in posterior left leg NEUROLOGICAL: Cranial nerves II through XII grossly intact. Normal speech, no focal sensorimotor deficits SKIN: Warm, Dry, normal turgor, no rashes or lesions noted. ED Treatment Course - LABORATORY CBC & Chemistry Diagram: 06/17/17 00:05 06/17/17 04:13 - RADIOLOGY Radiology Studies Ordered: Category Date Time Status CHEST X-RAY PORTABLE* [RAD] Stat Radiology 06/16/17 23:46 Ordered FEMUR-LEFT [RAD] Stat Radiology 06/17/17 00:13 Ordered KNEE 2 POS-LEFT [RAD] Stat Radiology 06/17/17 00:13 Ordered Medical Decision Making - Medical Decision Making 06/17/17 00:32 Patient is 47M with history of DM, right elbow nec fasc s/p surgical debridement , necrotizing soft tissue infection in left buttock (MRSA), GERD, chronic wound on left leg receiving hyperbarics and L BKA here today complaining of left sided leg pain. Vital signs stable and normal. Initial low blood pressure in 80s taken on right side, which has extensive surgical changes. Blood pressure 140/90 on left arm. Per chart review, patient is a non-compliant diabetic, likely vasculopathic, with history of nec fasc. Will evaluate with sepsis workup and x-rays. Offered to treat pain but patient refused. 06/17/17 03:12 Laboratory Tests 06/16/17 06/17/17 06/17/17 23:46 00:05 00:05 WBC 15.6 H D Hgb 9.1 L D Hct 28.5 L D Plt Count 429 D Neutrophils % 91.4 H VBG pH 7.34 Sodium 121 L* Potassium 2.7 L* D Anion Gap 16 BUN 27 H D Creatinine 1.8 H D Random Glucose 611 H* D Lactic Acid Calcium 7.2 L Alkaline Phosphatase 467 H D Troponin I < 0.02 C-Reactive Protein 06/17/17 06/17/17 00:05 00:05 WBC Hgb Hct Plt Count Neutrophils % VBG pH Sodium Potassium Anion Gap BUN Creatinine Random Glucose Lactic Acid 2.1 H* Calcium Alkaline Phosphatase Troponin I C-Reactive Protein 24.3 H D CBC shows leukocytosis with neutrophilic shift. Hgb 9. VBG normal. Na 121, K 2.7 , no gap, Cr 1.8, Glucose 611, calcium low, trop negative. LRINEC Score of 12. LRINEC is of questionable value, but suspicion is still high given history, exam and labs. 06/17/17 03:18 Vanc/zosyn started. 20meq KCl given IV, 40 meq PO. Holding insulin, giving fluids due to low potassium level. 06/17/17 06:28 Repeat Na 122 K 2.8. Given another 40 meq KCl PO. Admitted to inpatient tele. CT pending. *DC/Admit/Observation/Transfer Diagnosis at time of Disposition: Hyperglycemia, Hypokalemia, Sepsis - Discharge Dispostion Condition at time of disposition: Stable Admit: Yes
[2017-06-17 00:40] LABS: VENOUS PH 7.34 (7.32-7.42)
[2017-06-17 00:42] LABS: VENOUS BLOOD GAS HCO3 18.7 meq/L (19-25)
[2017-06-17 00:43] LABS: BASOPHIL 0.1 % (0-2.0); MCH 24.4 pg (25.7-33.7); MCHC 31.8 g/dl (32.0-35.9); MEAN CELL VOLUME 76.7 fl (80-96); MEAN PLT VOLUME 7.8 fl (7.5-11.1); NEUTROPHILS 91.4 % (42.8-82.8); PLATELET COUNT 429 K/MM3 (134-434); WHITE BLOOD COUNT 15.6 K/mm3 (4.0-10.0)
[2017-06-17 00:56] LABS: INR 1.07 (0.82-1.09); PROTHROMBIN TIME (PATIENT) 11.8 SEC (9.98-11.88)
[2017-06-17 00:59] LABS: ACTIVATED PTT 32.4 SECONDS (26.9-34.4)
[2017-06-17 01:06] LABS: ALBUMIN 1.3 g/dl (3.4-5.0); ANION GAP 16 (8-16); BILIRUBIN,TOTAL 0.3 mg/dL (0.2-1.0); CALCIUM 7.2 mg/dL (8.5-10.1); CO2 18 mmol/L (21-32); CREATININE 1.8 mg/dL (0.7-1.3); SGOT/AST 13 U/L (15-37); SGPT/ALT 12 U/L (12-78); TOT PROT 4.8 g/dl (6.4-8.2)
[2017-06-17 01:09] LABS: ALK PHOS 467 U/L (45-117); CPK 57 IU/L (39-308); TROPONIN I < 0.02 ng/ml (0.00-0.05)
[2017-06-17 01:12] LABS: GLUCOSE,RANDOM 611 mg/dL (74-106)
[2017-06-17] MEDS ORDERED: VANCOMYCIN 1,000 MG in DEXTROSE 5%-WATER - 250 ML IVPB ONE (01:28)
[2017-06-17] MEDS ORDERED: PIPERACILLIN/TAZOB 4.5 GM/100 ML PRE-DOCKED IVPB ONE (01:29)
[2017-06-17] MEDS ORDERED: SODIUM CHLORIDE 1,000 ML IV STA (01:44)
[2017-06-17] MEDS ORDERED: POTASSIUM CHLORIDE TABS 20 MEQ TABLET.ER (FP) PO ONE ×4 (01:44→06:05)
[2017-06-17] MEDS ORDERED: VANCOMYCIN 1 GRAM (PRE-DOCKED) 250 ML IVPB ONE (01:45)
[2017-06-17] MEDS ORDERED: PIPERACILLIN/TAZOB 4.5 GM 100 ML IVPB ONE (01:45)
[2017-06-17] MEDS ORDERED: morphine CARPU-JECT 4 MG/1 ML DISP.SYRIN IVPUSH ONE (03:10)
[2017-06-17] MEDS ORDERED: morphine CARPU-JECT 2 MG/1 ML DISP.SYRIN ONE ×2 (03:15→06:54)
[2017-06-17] MEDS ORDERED: KCL 10 MEQ IVPB 200 ML IVPB ONE ×2 (03:21→03:43)
[2017-06-17] MEDS ORDERED: ONDANSETRON 4 MG/2 ML VIAL ONE (03:50)
[2017-06-17] MEDS ORDERED: ONDANSETRON 4 MG/2 ML VIAL IVPUSH ONE (03:51)
[2017-06-17] MEDS: POTASSIUM CHLORIDE 20 MEQ PREMIX IVPB 100 ML IVPB SCH ×4 (03:59→16:01)
[2017-06-17] MEDS ORDERED: SODIUM CHLORIDE 1,000 ML IV SCH ×2 (04:15→10:54)
[2017-06-17] MEDS ORDERED: INSULIN SLIDING SCALE (NOVOLOG) 1 VIAL SQ SCH ×2 (04:30→11:00)
[2017-06-17] MEDS ORDERED: ONDANSETRON 4 MG/2 ML VIAL IVPB PRN (04:34)
--- NOTE | 2017-06-17 04:45 | HP ---
Admitting History and Physical - Primary Care Physician PCP: none - Admission Chief Complaint: leg pain History of Present Illness: The pt is a poor historian and didn't want to answer questions. History was taken partially from him and medical records. This a 47 year old male with pmh of ulcer in LLE, recieving hyperbaric treatments, necrotizing fasc. in right elbow and buttock, MRSA, uncontrolled DM. He presents today complaining of left leg pain that started about month ago and got progressively worse. He contacted wound clinic last weekend was told that he need to apply topical treatment. Since then his pain got worse and he had fever and chills. The pt denies taking any antibiotics. History Source: Patient, Medical Record Limitations to Obtaining History: Poor Historian, Uncooperative - Past Medical History Cardiovascular: Yes: HTN, Hyperlipdemia Infectious Disease: Yes: MRSA (several years ago) Musculoskeletal: Yes: Other Endocrine: Yes: Diabetes Mellitus Dermatology: Yes: Cellulitis (mrsa) - Past Surgical History Past Surgical History: Yes: Amputation (left BKA) - Smoking History Smoking history: Unknown if ever smoked Have you smoked in the past 12 months: No Aproximately how many cigarettes per day: 0 - Alcohol/Substance Use Hx Alcohol Use: No - Social History ADL: Independent History of Recent Travel: No Home Medications - Allergies Allergies/Adverse Reactions: Allergies Allergy/AdvReac Type Severity Reaction Status Date / Time No Known Allergies Allergy Verified 06/16/17 23:22 - Home Medications Home Medications: Ambulatory Orders Collagenase Clostridium Hist. [Santyl] 1 applic TP DAILY #1 oint...g. 05/26/17 Oxycodone HCl/Acetaminophen [Percocet 10-325 mg Tablet] 1 each PO Q6H PRN Review of Systems Unable to obtain ROS, reason: the pt was uncooperative Physical Examination Vital Signs: Vital Signs Temperature 98.5 F 06/16/17 23:22 Pulse Rate 98 H 06/16/17 23:22 Respiratory Rate 22 06/16/17 23:22 Blood Pressure 81/51 06/16/17 23:22 O2 Sat by Pulse Oximetry (%) 95 06/16/17 23:22 Findings/Remarks: the pt refused physical exam Problem List - Problems (1) Hyperglycemia Code(s): R73.9 - HYPERGLYCEMIA, UNSPECIFIED (2) Hypokalemia Code(s): E87.6 - HYPOKALEMIA (3) Sepsis Code(s): A41.9 - SEPSIS, UNSPECIFIED ORGANISM (4) KENDRICK (acute kidney injury) Code(s): N17.9 - ACUTE KIDNEY FAILURE, UNSPECIFIED (5) Hyperglycemia due to type 2 diabetes mellitus Code(s): E11.65 - TYPE 2 DIABETES MELLITUS WITH HYPERGLYCEMIA Qualifiers: Diabetes mellitus emt intermediate insulin use: unspecified nursing home insulin use status Qualified Code(s): E11.65 - Type 2 diabetes mellitus with hyperglycemia; E11.65 - Type 2 diabetes mellitus with hyperglycemia; E11.65 - Type 2 diabetes mellitus with hyperglycemia; E11.65 - Type 2 diabetes mellitus with hyperglycemia (6) Nausea & vomiting Code(s): R11.2 - NAUSEA WITH VOMITING, UNSPECIFIED Qualifiers: Vomiting Intractability: intractable (7) Noncompliance with diabetes treatment Code(s): Z91.19 - PATIENT'S NONCOMPLIANCE W OTH MEDICAL TREATMENT AND REGIMEN (8) Diabetic ulcer of lower extremity Code(s): E11.622 - TYPE 2 DIABETES MELLITUS WITH OTHER SKIN ULCER L97.909 - NON-PRS CHRONIC ULC UNSP PRT OF UNSP LOW LEG W UNSP SEVERITY Assessment/Plan This a 47 year old male with pmh of ulcer in LLE, recieving hyperbaric treatments, necrotizing fasc. in right elbow and buttock, MRSA, uncontrolled DM. He presents today complaining of left leg pain that started about month ago and got progressively worse. He is admitted for severe sepsis due to leg ulcer. Severe sepsis due to leg ulcer, low suspiction for nec fasc. -continue IVF, -trend LA q4 h -Vanco/Zosyn given in ED will continue -will consult ID -f/u blood cultures, urine culteres -pain control -contacted Dr. Jennings who will evaluate him in Am and recommended CT LE w/o contrast Hyperglycemia due to uncontrolled DM, possibly mixed DKA and hyperosmolar state -elevated anion gap, normal serum osmolarity, nl PH, no ketones in urine -due to infection, not compliance with medications -cont IVF to close gap, it was 16 then 14 at 6 AM -not compliant with medications -will monitor BGM q2 h -will order ISS and ginve 10 u od Novolog now -levemir 15 u AM -HgA1C Hypokalemia: -related to hypoglycemia -recieved PO and IV potassium -will monitor KENDRICK secondary to sepsis will continue fluids and avoid nephrotoxic substances Hyponatremia -corrected Na was improved -continue NS Lactic acidosis: -likely due to to hyperglycemia -will f/u q4h Nausea and vomiting -given Zofran -most likely due to hyperglycemia DVT PPX: -heparin 5000 SQ F/E/N: NS/low K, Na/npo Disposition: telemetry Full H&P to follow Visit type - Emergency Visit Emergency Visit: Yes ED Registration Date: 06/17/17 Care time: The patient presented to the Emergency Department on the above date and was hospitalized for further evaluation of their emergent condition. - New Patient This patient is new to me today: Yes Date on this admission: 06/18/17 - Critical Care Critical Care patient: No
[2017-06-17 04:58] LABS: ALBUMIN 1.2 g/dl (3.4-5.0); ANION GAP 14 (8-16); BILIRUBIN,TOTAL 0.4 mg/dL (0.2-1.0); CALCIUM 7.2 mg/dL (8.5-10.1); CO2 18 mmol/L (21-32); CREATININE 1.8 mg/dL (0.7-1.3); SGOT/AST 12 U/L (15-37); SGPT/ALT 10 U/L (12-78); TOT PROT 4.7 g/dl (6.4-8.2)
[2017-06-17 04:59] LABS: ALK PHOS 430 U/L (45-117)
[2017-06-17 05:03] LABS: GLUCOSE,RANDOM 563 mg/dL (74-106)
--- NOTE | 2017-06-17 05:37 | HP ---
CHIEF COMPLAINT: left leg pain PCP: none HISTORY OF PRESENT ILLNESS: The patient was noncompliant with history taking and exam. HPI taken from ED notes and patient record. The patient is a 47 yo m w/ pmh DM w/ multiple soft tissue infections and left BKA comes into the ED complaining of left leg pain for the past week. The pain is located behind the patient's knee and radiates up the posterior thigh. This pain is associated with fever, chills, nausea, vomiting and body aches. He is currently seeing Dr. Jennings at the wound care clinic (last visit 1 week ago) and is undergoing hyperbaric treatment. He takes no medications for his DM and has not been following a diabetic diet. ER course was notable for: (1) tachycardia to 98, leukocytosis to 15.1 (2) s/p vancomycin and zosyn (3) Recent Travel: unable to obtain PAST MEDICAL HISTORY: -diabetes mellitus -right elbow necrotizing fasciitis s/p surgical debridement -necrotizing soft tissue infection of left buttock -left BKA -chronic draining left leg wound PAST SURGICAL HISTORY: -debirement of right elbow -left BKA Social History: unable to obtain Family History: -diabetes in father Allergies No Known Allergies Allergy (Verified 06/16/17 23:22) HOME MEDICATIONS: Home Medications Medication Instructions Recorded Collagenase Clostridium Hist. 1 applic TP DAILY #90 oint...g. 05/03/17 [Santyl] Becaplermin [Regranex] 15 gm TP DAILY #1 gel..gram. 05/26/17 Collagenase Clostridium Hist. 1 applic TP DAILY #1 oint...g. 05/26/17 [Santyl] REVIEW OF SYSTEMS unable to obtain due to patient's lack of cooperation PHYSICAL EXAMINATION Patient refused physical exam. Laboratory Results - last 24 hr 06/17/17 04:00 Lactic Acid 2.0 ASSESSMENT/PLAN: The patient is a 47 yo m w/ PMH DM and multiple soft tissue infections comes to the ED c/o left leg pain as well as fever, chills, nausea, vomiting and body aches. Patient is admitted to med surg for severe sepsis secondary to leg wound infection. #severe sepsis 2/2 infectious vs other eitology -s/p vanc, zosyn in ED -c/w vancomycin 1g IV daily and zosyn 3.375g Q8H IV -wound and blood cultures pending -ID consult: bobde -Normal saline @100 -2mg morphine prn pain #Hypokalemia -k 2.7 in ED -s/p 40meq PO KCL in ED -s/p 20 meq KCL IV in ED -repeat CMP pending #Hyperglycemia with elevated anion gap 2/2 DKA vs infectious eitology -levemir 15u hs -novolog 10 units -ISS -gabapentin 100 TID -BGM q4 -anion gap closing; 16 -> 14 -IVF -u/a negative for ketones #lactic acidosis -admission LA 2.1, rpt 2.0 -trend q4h #KENDRICK likely 2/2 severe sepsis -creatinine 1.8; baseline .8 -IVF -trend creatinine #nausea and vomiting likely 2/2 hyperglycemia -zofran 4mg IV prn -NPO -monitor lytes #pseudo-hyponatremia -Na 121 in ED -corrected sodium 129 -NS @ 100 -repeat CMP pending #FEN -NS@ 100 -monitor lytes -NPO #Prophylaxsis -SCD on right leg #Dispo -admitted to ICU Problem List - Problem (1) Hyperglycemia Code(s): R73.9 - HYPERGLYCEMIA, UNSPECIFIED (2) Hypokalemia Code(s): E87.6 - HYPOKALEMIA (3) Sepsis Code(s): A41.9 - SEPSIS, UNSPECIFIED ORGANISM (4) KENDRICK (acute kidney injury) Code(s): N17.9 - ACUTE KIDNEY FAILURE, UNSPECIFIED Visit type - Emergency Visit Emergency Visit: Yes ED Registration Date: 06/17/17 Care time: The patient presented to the Emergency Department on the above date and was hospitalized for further evaluation of their emergent condition. - New Patient This patient is new to me today: Yes Date on this admission: 06/17/17 - Critical Care Critical Care patient: Yes Total Critical Care Time (in minutes): 40 Critical Care Statement: The care of this patient involved high complexity decision making to prevent further life threatening deterioration of the patient 's condition and/or to evaluate & treat vital organ system(s) failure or risk of failure.
[2017-06-17] MEDS ORDERED: morphine CARPU-JECT 2 MG/1 ML DISP.SYRIN IVPUSH PRN (06:00)
[2017-06-17 07:01] LABS: URINE APPEARANCE CLEAR; URINE BILIRUBIN NEGATIVE (NEGATIVE); URINE BLOOD NEGATIVE (NEGATIVE); URINE COLOR LTYELLOW; URINE GLUCOSE (UA) 3+ (NEGATIVE); URINE KETONE NEGATIVE (NEGATIVE); URINE NITRITE NEGATIVE (NEGATIVE); URINE UROBILINOGEN NEGATIVE mg/dL (0.2-1.0)
[2017-06-17 07:05] LABS: URINE PROTEIN 3+ (NEGATIVE)
[2017-06-17] MEDS ORDERED: Insulin (LOG) Aspart 100 UNITS/ML VIAL SQ ONE (07:05)
[2017-06-17 07:06] LABS: URINE MUCUS RARE; URINE RBC 8 /hpf (0-3); URINE WBC 12 /hpf (3-5)
--- NOTE | 2017-06-17 07:19 | PN ---
Teaching Attending Note Name of Resident: Wilber Shi ATTENDING PHYSICIAN STATEMENT I saw and evaluated the patient. I reviewed the resident's note and discussed the case with the resident. I agree with the resident's findings and plan as documented. SUBJECTIVE:l 47 y/o M noncompliant with medications presented to ED with left leg pain in thigh, does not take diabetes medications and follows with Dr Jennings for wound care. Patient reports fever but was afebrile on admission. OBJECTIVE: Wound clean on left BKA, left thigh tenderness Laboratory Results - last 24 hr 06/16/17 06/17/17 06/17/17 23:46 00:05 00:05 WBC 15.6 H D RBC 3.72 L D Hgb 9.1 L D Hct 28.5 L D MCV 76.7 L MCH 24.4 L MCHC 31.8 L RDW 16.0 H Plt Count 429 D MPV 7.8 Neutrophils % 91.4 H Lymphocytes % 4.1 L D Monocytes % 3.4 L Eosinophils % 1.0 Basophils % 0.1 PT with INR 11.80 INR 1.07 PTT (Actin FS) 32.4 VBG pH 7.34 POC VBG pCO2 35.3 L D POC VBG pO2 48.9 H D Mixed VBG HCO3 18.7 L Sodium Potassium Chloride Carbon Dioxide Anion Gap BUN Creatinine Creat Clearance w eGFR Random Glucose Lactic Acid Calcium Total Bilirubin AST ALT Alkaline Phosphatase Creatine Kinase Troponin I C-Reactive Protein Total Protein Albumin Urine Color Urine Appearance Urine pH Urine Protein Urine Glucose (UA) Urine Ketones Urine Blood Urine Nitrite Urine Bilirubin Urine Urobilinogen Urine RBC Urine WBC Ur Epithelial Cells Urine Mucus Blood Type Antibody Screen 06/17/17 06/17/17 06/17/17 00:05 00:05 00:05 WBC RBC Hgb Hct MCV MCH MCHC RDW Plt Count MPV Neutrophils % Lymphocytes % Monocytes % Eosinophils % Basophils % PT with INR INR PTT (Actin FS) VBG pH POC VBG pCO2 POC VBG pO2 Mixed VBG HCO3 Sodium 121 L* Potassium 2.7 L* D Chloride 87 L Carbon Dioxide 18 L D Anion Gap 16 BUN 27 H D Creatinine 1.8 H D Creat Clearance w eGFR 40.82 Random Glucose 611 H* D Lactic Acid 2.1 H* Calcium 7.2 L Total Bilirubin 0.3 AST 13 L D ALT 12 D Alkaline Phosphatase 467 H D Creatine Kinase 57 Troponin I < 0.02 C-Reactive Protein Total Protein 4.8 L D Albumin 1.3 L D Urine Color Urine Appearance Urine pH Urine Protein Urine Glucose (UA) Urine Ketones Urine Blood Urine Nitrite Urine Bilirubin Urine Urobilinogen Urine RBC Urine WBC Ur Epithelial Cells Urine Mucus Blood Type A POSITIVE Antibody Screen Negative 06/17/17 06/17/17 06/17/17 00:05 04:00 04:13 WBC RBC Hgb Hct MCV MCH MCHC RDW Plt Count MPV Neutrophils % Lymphocytes % Monocytes % Eosinophils % Basophils % PT with INR INR PTT (Actin FS) VBG pH POC VBG pCO2 POC VBG pO2 Mixed VBG HCO3 Sodium 122 L* Potassium 2.8 L* Chloride 90 L Carbon Dioxide 18 L Anion Gap 14 BUN 29 H Creatinine 1.8 H Creat Clearance w eGFR 40.82 Random Glucose 563 H* Lactic Acid 2.0 Calcium 7.2 L Total Bilirubin 0.4 D AST 12 L ALT 10 L Alkaline Phosphatase 430 H Creatine Kinase Troponin I C-Reactive Protein 24.3 H D Total Protein 4.7 L Albumin 1.2 L Urine Color Urine Appearance Urine pH Urine Protein Urine Glucose (UA) Urine Ketones Urine Blood Urine Nitrite Urine Bilirubin Urine Urobilinogen Urine RBC Urine WBC Ur Epithelial Cells Urine Mucus Blood Type Antibody Screen 06/17/17 06:30 WBC RBC Hgb Hct MCV MCH MCHC RDW Plt Count MPV Neutrophils % Lymphocytes % Monocytes % Eosinophils % Basophils % PT with INR INR PTT (Actin FS) VBG pH POC VBG pCO2 POC VBG pO2 Mixed VBG HCO3 Sodium Potassium Chloride Carbon Dioxide Anion Gap BUN Creatinine Creat Clearance w eGFR Random Glucose Lactic Acid Calcium Total Bilirubin AST ALT Alkaline Phosphatase Creatine Kinase Troponin I C-Reactive Protein Total Protein Albumin Urine Color Ltyellow Urine Appearance Clear Urine pH 5.0 Urine Protein 3+ H Urine Glucose (UA) 3+ H Urine Ketones Negative Urine Blood Negative Urine Nitrite Negative Urine Bilirubin Negative Urine Urobilinogen Negative Urine RBC 8 Urine WBC 12 Ur Epithelial Cells Few Urine Mucus Rare Blood Type Antibody Screen ASSESSMENT AND PLAN: Sepsis infectious vs non-infectious, Vancomycin and Zosyn Admit to ICU DKA AG now closed IVF, Insulin 10Units stat, RISS and 10U HS cbc, bmp in am FS ACHS Hypokalemia supplement potassium Monitor mg , phosphate Leg pain possibly secondary to Diabetic neuropathy, controll BG and Gabapentin. KENDRICK- IVF repeat bmp Problem List - Problems (1) DKA (diabetic ketoacidosis) Code(s): E13.10 - OTH DIABETES MELLITUS WITH KETOACIDOSIS WITHOUT COMA (2) Sepsis Code(s): A41.9 - SEPSIS, UNSPECIFIED ORGANISM (3) Hypokalemia Code(s): E87.6 - HYPOKALEMIA (4) Diabetic neuropathy Code(s): E11.40 - TYPE 2 DIABETES MELLITUS WITH DIABETIC NEUROPATHY, UNSP Qualifiers: Diabetes mellitus type: type 2 (5) Leg wound, left Code(s): S81.802A - UNSPECIFIED OPEN WOUND, LEFT LOWER LEG, INITIAL ENCOUNTER Critical Care Total Critical Care Time (in minutes): 35 Critical Care Statement: The care of this patient involved high complexity decision making to prevent further life threatening deterioration of the patient 's condition and/or to evaluate & treat vital organ system(s) failure or risk of failure.
[2017-06-17 08:24] LABS: ALBUMIN 1.3 g/dl (3.4-5.0); ALK PHOS 464 U/L (45-117); ANION GAP 19 (8-16); BILIRUBIN,TOTAL 0.4 mg/dL (0.2-1.0); CALCIUM 7.3 mg/dL (8.5-10.1); CO2 16 mmol/L (21-32); CREATININE 1.6 mg/dL (0.7-1.3); MAGNESIUM 2.5 mg/dL (1.8-2.4); SGOT/AST 12 U/L (15-37); SGPT/ALT 10 U/L (12-78); TOT PROT 4.8 g/dl (6.4-8.2)
[2017-06-17 08:41] LABS: GLUCOSE,RANDOM 473 mg/dL (74-106)
[2017-06-17] MEDS ORDERED: HYDROmorphone HCL CARPU-JECT 1 MG/1 ML DISP.SYRIN IVPB PRN ×2 (09:11→13:40)
[2017-06-17] MEDS ORDERED: HYDROmorphone HCL CARPU-JECT 1 MG/1 ML DISP.SYRIN ONE (09:14)
--- NOTE | 2017-06-17 09:25 | HOSP ---
Physical Examination Vital Signs: Vital Signs Temperature 98.4 F 06/17/17 07:44 Pulse Rate 91 H 06/17/17 07:44 Respiratory Rate 18 06/17/17 07:44 Blood Pressure 98/54 06/17/17 07:44 O2 Sat by Pulse Oximetry (%) 99 06/17/17 07:44 Constitutional: Yes: Mild Distress (due to pain) Eyes: Yes: Conjunctiva Clear HENT: Yes: Atraumatic Cardiovascular: Yes: Regular Rate and Rhythm, S1, S2 Respiratory: Yes: Regular, CTA Bilaterally Gastrointestinal: Yes: Normal Bowel Sounds, Soft Musculoskeletal: Yes: Other (L posterior tenderness from knee to thigh) Edema: Yes (L knee ) Wound/Incision: Yes: Other (L lateral knee wound, clean, no drainage, open healed RUE graft, RLE scar) Neurological: Yes: Alert, Oriented, Cran Nerves II-XII Intact Hospitalist Encounter Assessment: Assessment: 47 year old male with uncontrolled DM II, multiple soft tissues infections, hx of MRSA, s/p Left BKA admitted with worsening posterior left leg pain for 1 week and sepsis. Plan: 1. Sepsis - Check lactic acid level this AM - Continue IVF - s/p vanco, zosyn in ED - Femur and knee xray negative for air - Final CT lower ext report pending - ID consult requested - Dr. Jennings aware 2. Hyperglycemia vs DKA - Anion gap open - Repeat CMP now - Insulin 10units given in ED - Pending repeat chemistries will initiate insulin gtt - Fluids as above 3. Hyponatremia - Corrected 134 4. Hypokalemia - due to hyperglycemia - Improved after repletion - f/u CMP 5. Lactic acidosis - Improved 6. KENDRICK - Due to sepsis vs hyperglycemia - Improving 7. Proteinuria - Pt has active sediment - Likely due to uncontrolled DM - Will need renal work up - Will need MAYA inhibitor, however pt known to be medication non compliant
[2017-06-17 09:56] LABS: ALBUMIN 1.3 g/dl (3.4-5.0); ANION GAP 17 (8-16); BILIRUBIN,TOTAL 0.3 mg/dL (0.2-1.0); CALCIUM 7.3 mg/dL (8.5-10.1); CO2 18 mmol/L (21-32); CREATININE 1.7 mg/dL (0.7-1.3); SGOT/AST 12 U/L (15-37); SGPT/ALT 10 U/L (12-78)
[2017-06-17 09:57] LABS: ALK PHOS 449 U/L (45-117)
[2017-06-17] MEDS ORDERED: PIPERACILLIN/TAZOB 3.375 GM/50 ML PRE-DOCKED IVPB SCH (10:00)
[2017-06-17] MEDS ORDERED: VANCOMYCIN 1 GRAM (PRE-DOCKED) 1,000 MG/250 ML BAG IVPB ONE ×2 (10:00→13:40)
[2017-06-17] MEDS ORDERED: PIPERACILLIN/TAZOB 3.375 GM 50 ML IVPB ONE (10:00)
[2017-06-17 10:07] LABS: GLUCOSE,RANDOM 364 mg/dL (74-106)
[2017-06-17] MEDS ORDERED: INSULIN (NOVOLOG) ASPART 100 UNITS/ML 10ML VIAL SQ ONE (10:51)
[2017-06-17] MEDS ORDERED: POTASSIUM CHLORIDE ORAL LIQUID 20 MEQ/15 ML PO ONE (10:53)
[2017-06-17 11:25] LABS: URINE LEUK ESTERASE Negative (NEGATIVE)
[2017-06-17] MEDS ORDERED: SODIUM CHLORIDE 0.9%/KCL 1,000 ML IV SCH ×3 (11:30→14:28)
[2017-06-17] MEDS ORDERED: INSULIN REGULAR HUMAN 100 UNITS/ML *VIAL ONE (11:59)
[2017-06-17] MEDS ORDERED: INSULIN REGULAR 100 UNITS in SODIUM CHLORIDE 99 ML IVPB SCH ×2 (12:15→14:35)
[2017-06-17 12:36] VITALS: BMI 31.4
[2017-06-17 13:27] LABS: ANION GAP 15 (8-16); CALCIUM 7.6 mg/dL (8.5-10.1); CO2 18 mmol/L (21-32); CPK 69 IU/L (39-308); CREATININE 1.5 mg/dL (0.7-1.3); GLUCOSE,RANDOM 151 mg/dL (74-106)
[2017-06-17] MEDS ORDERED: GABAPENTIN 100 MG CAPSULE (FP) PO SCH (14:00)
--- NOTE | 2017-06-17 14:22 | CON.ID ---
Consult Consult Specialty:: infectious diseases Reason for Consultation:: cellulitis of the leg,septicemia. 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 A/p report, pt locates the pain behind the L knee & radiating up the posterior thigh. assoc fevers, chills, & N/V. on admission patient has severe LE pain, leukocytosis > 15, a LA > 3.0, intractable N/V, hyperglycemia --> 560mg/dl & and AG of 19. CT L LE shows: extensive subcutaneous fluid & fat stranding surrounding the L knee tracking superiorly along the posterior & lateral thigh c/f infectious/phlegmonous change. There is a joint effusion of the L knee. (No subcutaneous gas is noted) . No obvious drainable collection. Also noted is confluent fluid & fat stranding surrounding the sciatic nerve in the posterior thigh & knee. There is a suggestion of fluid w/ in the short head of the biceps femoris & adjacent adductor muscles in the inferior, posterior L thigh w/ effacement of intramuscular fat planes. patient leg is also very tender to touch patient is very restless - History Source History Provided By: Patient, Medical Record Limitations to Obtaining History: Clinical Condition - Past Medical History Cardio/Vascular: Yes: HTN, Hyperlipdemia Infectious Disease: Yes: MRSA (several years ago) Musculoskeletal: Yes: Other Endocrine: Yes: Diabetes Mellitus Dermatology: Yes: Cellulitis (mrsa) - Past Surgical History Past Surgical History: Yes: Amputation (left BKA) - Alcohol/Substance Use Hx Alcohol Use: No - Smoking History Smoking history: Former smoker Have you smoked in the past 12 months: No Aproximately how many cigarettes per day: 0 If you are a former smoker, when did you quit?: 10 years ago - Social History Usual Living Arrangement: With Spouse ADL: Independent History of Recent Travel: No Home Medications - Allergies Allergies/Adverse Reactions: Allergies Allergy/AdvReac Type Severity Reaction Status Date / Time No Known Allergies Allergy Verified 06/16/17 23:22 - Home Medications Home Medications: Ambulatory Orders Collagenase Clostridium Hist. [Santyl] 1 applic TP DAILY #1 oint...g. 05/26/17 Oxycodone HCl/Acetaminophen [Percocet 10-325 mg Tablet] 1 each PO Q6H PRN Review of Systems - Review of Systems Constitutional: reports: Chills, Fever Eyes: reports: No Symptoms HENT: reports: No Symptoms Neck: reports: No Symptoms Cardiovascular: reports: No Symptoms Respiratory: reports: No Symptoms Genitourinary: reports: No Symptoms Musculoskeletal: reports: Extremity Pain, Joint Pain, Muscle Pain Integumentary: reports: Change in Color, Erythema, Other Neurological: reports: No Symptoms Endocrine: reports: Increased Thirst, Other (uncontrolled sugar) Hematology/Lymphatic: reports: No Symptoms Psychiatric: reports: No Symptoms Physical Exam Vital Signs: Vital Signs Temperature 100.2 F H 06/17/17 14:08 Pulse Rate 115 H 06/17/17 13:46 Respiratory Rate 15 06/17/17 13:46 Blood Pressure 108/59 06/17/17 13:46 O2 Sat by Pulse Oximetry (%) 99 06/17/17 12:06 Constitutional: Yes: Moderate Distress, Obese Eyes: Yes: Conjunctiva Clear HENT: Yes: Atraumatic, Normocephalic Neck: Yes: Supple, Trachea Midline Cardiovascular: Yes: Regular Rate and Rhythm Respiratory: Yes: Regular, CTA Bilaterally Gastrointestinal: Yes: Normal Bowel Sounds, Soft Musculoskeletal: Yes: Other Extremities: Yes: Other (Yes: Amputation, Other (Left BKA w/ tender foul smelling draining chronic 3x4cm wound (no crepitus noted).) swelling of the left thigh pain to touch) Wound/Incision: Yes: Other ( Other (chronic L LE Stump wound w/ foul smelling drainage.) Neurological: Yes: Alert, Oriented Psychiatric: Yes: Alert, Oriented Labs: CBC, BMP 06/17/17 12:52 Imaging - Results Chest X-ray: Report Reviewed, Image Reviewed X-ray: Report Reviewed, Image Reviewed Cat Scan: Report Reviewed, Image Reviewed Assessment/Plan Problem List - Problems (1) Sepsis Code(s): A41.9 - SEPSIS, UNSPECIFIED ORGANISM (2) Abscess and cellulitis Code(s): L03.90 - CELLULITIS, UNSPECIFIED L02.91 - CUTANEOUS ABSCESS, UNSPECIFIED (3) Cellulitis and abscess of left leg Code(s): L03.116 - CELLULITIS OF LEFT LOWER LIMB L02.416 - CUTANEOUS ABSCESS OF LEFT LOWER LIMB (4) Intractable vomiting with nausea Code(s): R11.2 - NAUSEA WITH VOMITING, UNSPECIFIED Qualifiers: Vomiting type: unspecified Qualified Code(s): R11.2 - Nausea with vomiting, unspecified; R11.2 - Nausea with vomiting, unspecified (5) Noncompliance with diabetes treatment Code(s): Z91.19 - PATIENT'S NONCOMPLIANCE W OTH MEDICAL TREATMENT AND REGIMEN (6) Diabetic ulcer of lower extremity Code(s): E11.622 - TYPE 2 DIABETES MELLITUS WITH OTHER SKIN ULCER L97.909 - NON-PRS CHRONIC ULC UNSP PRT OF UNSP LOW LEG W UNSP SEVERITY lactic acidosis patient has already received vanco and zosyn patient has known h/o of renal issus plan will cont van and zosyn check vanc level tomorrow will add clinda close monitoring for fever and wbc hydration sugar control rest as per icu/primary team cc time 45 min
[2017-06-17] MEDS: GABAPENTIN 100 MG CAPSULE (FP) PO SCH ×2 (15:10→21:13)
[2017-06-17] MEDS: HYDROmorphone HCL CARPU-JECT 1 MG/1 ML DISP.SYRIN IVPB PRN ×2 (15:11→23:14)
[2017-06-17] MEDS: CLINDAMYCIN 600MG PREMIX IVPB 50 ML IVPB SCH ×2 (15:11→21:12)
--- NOTE | 2017-06-17 15:39 | CONSULT ---
Consult Consult Specialty:: PULM / CCM Referred by:: Dr. Michelle Nam Reason for Consultation:: Sepsis - History of Present Illness Chief Complaint: L LE Pain History of Present Illness: Mr. 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 howe, wound care clinic, including hyperbaric Tx. Pt presents to the ED O/N c/o L LE pain X 5 Days. A/p report, pt locates the pain behind the L knee & radiating up the posterior thigh. Patient also c/o assoc fevers, chills, & N/V. The pt states that at first he simply felt as though he had a flu w/ assoc body aches and fevers. Of note, the pt states that he does not see any PCP. In The ED the pt is notable for 9/10 L LE pain, a leukocytosis > 15, a LA > 3.0, intractable N/V, hyperglycemia --> 560mg/dl & and AG of 19. CT L LE shows: extensive subcutaneous fluid & fat stranding surrounding the L knee tracking superiorly along the posterior & lateral thigh c/f infectious/ phlegmonous change. There is a joint effusion of the L knee. (No subcutaneous gas is noted). No obvious drainable collection. Also noted is confluent fluid & fat stranding surrounding the sciatic nerve in the posterior thigh & knee. There is a suggestion of fluid w/ in the short head of the biceps femoris & adjacent adductor muscles in the inferior, posterior L thigh w/ effacement of intramuscular fat planes. Pt queen clxr'ed. Started on Abx. & Dr. Howe notified. Pt admitted to the ICU for Sepsis & metabolic disarray. - History Source History Provided By: Patient, Medical Record Limitations to Obtaining History: Clinical Condition - Past Medical History Cardio/Vascular: Yes: HTN, Hyperlipdemia Gastrointestinal: Yes: GERD Infectious Disease: Yes: MRSA (several years ago) Musculoskeletal: Yes: Other (Nec Fasc) Endocrine: Yes: Diabetes Mellitus Dermatology: Yes: Cellulitis (mrsa) - Past Surgical History Past Surgical History: Yes: Amputation (left BKA) - Alcohol/Substance Use Hx Alcohol Use: No - Smoking History Smoking history: Former smoker Have you smoked in the past 12 months: No Aproximately how many cigarettes per day: 0 If you are a former smoker, when did you quit?: 10 years ago - Social History Usual Living Arrangement: With Spouse ADL: Independent History of Recent Travel: No Home Medications - Allergies Allergies/Adverse Reactions: Allergies Allergy/AdvReac Type Severity Reaction Status Date / Time No Known Allergies Allergy Verified 06/16/17 23:22 - Home Medications Home Medications: Ambulatory Orders Collagenase Clostridium Hist. [Santyl] 1 applic TP DAILY #1 oint...g. 05/26/17 Oxycodone HCl/Acetaminophen [Percocet 10-325 mg Tablet] 1 each PO Q6H PRN Family Disease History - Family Disease History Family Disease History: Diabetes: Father Review of Systems - Review of Systems Constitutional: reports: Malaise Eyes: reports: No Symptoms HENT: reports: No Symptoms Neck: reports: No Symptoms Cardiovascular: reports: No Symptoms Respiratory: reports: No Symptoms Gastrointestinal: reports: Nausea, Vomiting Genitourinary: reports: No Symptoms Breasts: reports: No Symptoms Reported Musculoskeletal: reports: Extremity Pain (L BKA from stump to buttock w/ exquisite intractable pain.) Integumentary: reports: Wound (chronic LLE wound.) Neurological: reports: No Symptoms Endocrine: reports: Other (Uncontrolled hyperglycemia.) Hematology/Lymphatic: reports: No Symptoms Psychiatric: reports: No Symptoms Pain Intensity: 9 Physical Exam Vital Signs: Vital Signs Temperature 100.2 F H 06/17/17 14:08 Pulse Rate 115 H 06/17/17 13:46 Respiratory Rate 15 06/17/17 13:46 Blood Pressure 108/59 06/17/17 13:46 O2 Sat by Pulse Oximetry (%) 99 06/17/17 12:06 Constitutional: Yes: Well Nourished, Anxious, Moderate Distress Eyes: Yes: WNL, Conjunctiva Clear, EOM Intact HENT: Yes: WNL, Atraumatic, Normocephalic Neck: Yes: WNL, Supple, Trachea Midline Cardiovascular: Yes: WNL, Regular Rate and Rhythm Respiratory: Yes: WNL, Regular, CTA Bilaterally Gastrointestinal: Yes: WNL, Normal Bowel Sounds, Soft, Abdomen, Obese ...Rectal Exam: Yes: Deferred Renal/: Yes: WNL Breast(s): Yes: WNL Musculoskeletal: Yes: WNL Extremities: Yes: Amputation, Other (Left BKA w/ tender foul smelling draining chronic 3x4cm wound (no crepitus noted).) Edema: Yes Edema: LLE: 2+ Peripheral Pulses WNL: Yes Integumentary: Yes: WNL Wound/Incision: Yes: Other (chronic L LE Stump wound w/ foul smelling drainage.) Neurological: Yes: WNL, Alert, Oriented ...Motor Strength: WNL Psychiatric: Yes: WNL, Alert, Oriented Labs: CBC, BMP 06/17/17 12:52 Abnormal Lab Results 06/16/17 06/17/17 06/17/17 23:46 00:05 00:05 WBC 15.6 H D RBC 3.72 L D Hgb 9.1 L D Hct 28.5 L D MCV 76.7 L MCH 24.4 L MCHC 31.8 L RDW 16.0 H Neutrophils % 91.4 H Lymphocytes % 4.1 L D Monocytes % 3.4 L POC VBG pCO2 35.3 L D POC VBG pO2 48.9 H D Mixed VBG HCO3 18.7 L Sodium 121 L* Potassium 2.7 L* D Chloride 87 L Carbon Dioxide 18 L D Anion Gap BUN 27 H D Creatinine 1.8 H D Random Glucose 611 H* D Lactic Acid Calcium 7.2 L Magnesium AST 13 L D ALT Alkaline Phosphatase 467 H D C-Reactive Protein Total Protein 4.8 L D Albumin 1.3 L D Urine Protein Urine Glucose (UA) 06/17/17 06/17/17 06/17/17 00:05 00:05 04:13 WBC RBC Hgb Hct MCV MCH MCHC RDW Neutrophils % Lymphocytes % Monocytes % POC VBG pCO2 POC VBG pO2 Mixed VBG HCO3 Sodium 122 L* Potassium 2.8 L* Chloride 90 L Carbon Dioxide 18 L Anion Gap BUN 29 H Creatinine 1.8 H Random Glucose 563 H* Lactic Acid 2.1 H* Calcium 7.2 L Magnesium AST 12 L ALT 10 L Alkaline Phosphatase 430 H C-Reactive Protein 24.3 H D Total Protein 4.7 L Albumin 1.2 L Urine Protein Urine Glucose (UA) 06/17/17 06/17/17 06/17/17 06:30 07:28 09:10 WBC RBC Hgb Hct MCV MCH MCHC RDW Neutrophils % Lymphocytes % Monocytes % POC VBG pCO2 POC VBG pO2 Mixed VBG HCO3 Sodium 125 L 127 L Potassium 3.0 L 2.8 L* Chloride 90 L 92 L Carbon Dioxide 16 L 18 L Anion Gap 19 H 17 H BUN 28 H 27 H Creatinine 1.6 H 1.7 H Random Glucose 473 H* 364 H* D Lactic Acid Calcium 7.3 L 7.3 L Magnesium 2.5 H AST 12 L 12 L ALT 10 L 10 L Alkaline Phosphatase 464 H 449 H C-Reactive Protein Total Protein 4.8 L 5.0 L Albumin 1.3 L 1.3 L Urine Protein 3+ H Urine Glucose (UA) 3+ H 06/17/17 06/17/17 09:30 12:52 WBC RBC Hgb Hct MCV MCH MCHC RDW Neutrophils % Lymphocytes % Monocytes % POC VBG pCO2 POC VBG pO2 Mixed VBG HCO3 Sodium 128 L Potassium 2.9 L* Chloride 95 L Carbon Dioxide 18 L Anion Gap BUN 27 H Creatinine 1.5 H Random Glucose 151 H D Lactic Acid 3.1 H* Calcium 7.6 L Magnesium AST ALT Alkaline Phosphatase C-Reactive Protein Total Protein Albumin Urine Protein Urine Glucose (UA) Imaging - Results Chest X-ray: Image Reviewed (CXR 06/17: Clear (My Read).) Cat Scan: Report Reviewed (CT LLE 06/17: Extensive subcutaneous fluid & fat stranding surrounding the L knee tracking superiorly along the posterior & lateral thigh c/f infectious/phlegmonous change. There is a joint effusion of the L knee. (No subcutaneous gas is noted). No obvious drainable collection. Also noted is confluent fluid & fat stranding surrounding the sciatic nerve in the posterior thigh & knee. There is a suggestion of fluid w/ in the short head of the biceps femoris & adjacent adductor muscles in the inferior, posterior L thigh w/ effacement of intramuscular fat planes.) EKG: Image Reviewed (06/17: RSR in the 90's w/o ectopy, normal axis, no ST or T- wave aberrations, QTc = 511ms, no acute processes (My Read).) Problem List - Problems (1) Sepsis Code(s): A41.9 - SEPSIS, UNSPECIFIED ORGANISM (2) Abscess and cellulitis Code(s): L03.90 - CELLULITIS, UNSPECIFIED L02.91 - CUTANEOUS ABSCESS, UNSPECIFIED (3) Cellulitis and abscess of left leg Code(s): L03.116 - CELLULITIS OF LEFT LOWER LIMB L02.416 - CUTANEOUS ABSCESS OF LEFT LOWER LIMB (4) Intractable vomiting with nausea Code(s): R11.2 - NAUSEA WITH VOMITING, UNSPECIFIED Qualifiers: Vomiting type: unspecified Qualified Code(s): R11.2 - Nausea with vomiting, unspecified; R11.2 - Nausea with vomiting, unspecified (5) Noncompliance with diabetes treatment Code(s): Z91.19 - PATIENT'S NONCOMPLIANCE W OTH MEDICAL TREATMENT AND REGIMEN (6) Diabetic ulcer of lower extremity Code(s): E11.622 - TYPE 2 DIABETES MELLITUS WITH OTHER SKIN ULCER L97.909 - NON-PRS CHRONIC ULC UNSP PRT OF UNSP LOW LEG W UNSP SEVERITY Assessment/Plan ASSESS: This is a 47 y/o man w/ uncontrolled DM II, non-compliant, c/c/b L BKA, multiple soft tissues infections, hx of MRSA. Pt presents to the ED c/o worsening posterior LLE pain X 1 Wk. Pt admitted to the ICU now for Sepsis (m/l LLE deep tissue infection), as well as metabolic disarray. PLAN: -Vanc -Clinda -Zo -ID -Aggressive IVFs -Trend LA -Pain management w/ IV Dilaudid -FSs -Tight BGL control w/ Insulin gtt to close AG -Trend AG -BMP q4Hrs -Strict I's & O's -Monitor UOP -Trend BUN/Cr -Replete e-lytes prn -BR -Clears as tolerated -SQH -PPI (GERD) -VASC Consult [facility] ICU ACNP-BC PULm / CCM 4436 Critical Care Time/MDM Note Total Critical Care Time: 40 Critical Care Statement: The care of this patient involved high complexity decision making to prevent further life threatening deterioration of the patient 's condition and/or to evaluate & treat vital organ system(s) failure or risk of failure.
[2017-06-17] MEDS ORDERED: LACTATED RINGERS SOLUTION 1,000 ML IV STA (15:42)
[2017-06-17] MEDS ORDERED: D5-1/2NS+10 MEQ KCL - 1,000 ML IV SCH (15:45)
[2017-06-17] MEDS ORDERED: D5-NS + 40 MEQ KCL - 1,000 ML IV SCH (16:00)
[2017-06-17] MEDS: KCL 10 MEQ IVPB 100 ML IVPB SCH ×6 (16:14→20:34)
[2017-06-17 17:48] LABS: ALBUMIN 1.1 g/dl (3.4-5.0); ALK PHOS 417 U/L (45-117); ANION GAP 11 (8-16); BILIRUBIN,TOTAL 0.4 mg/dL (0.2-1.0); CALCIUM 7.3 mg/dL (8.5-10.1); CO2 20 mmol/L (21-32); CREATININE 1.3 mg/dL (0.7-1.3); GLUCOSE,RANDOM 123 mg/dL (74-106); SGOT/AST 19 U/L (15-37); SGPT/ALT 10 U/L (12-78); TOT PROT 4.6 g/dl (6.4-8.2)
[2017-06-17] MEDS ORDERED: PIPERACILLIN/TAZOB 3.375 GM 50 ML IVPB SCH ×2 (18:00)
[2017-06-17] MEDS ORDERED: HYDROmorphone HCL CARPU-JECT 1 MG/1 ML DISP.SYRIN IVPUSH ONE ×2 (18:02→23:59)
[2017-06-17] MEDS: PIPERACILLIN/TAZOB 3.375 GM 50 ML IVPB SCH (18:04)
--- NOTE | 2017-06-17 18:57 | EKG ---
Test Reason : Blood Pressure : / mmHG Vent. Rate : 092 BPM Atrial Rate : 092 BPM P-R Int : 148 ms QRS Dur : 094 ms QT Int : 414 ms P-R-T Axes : -01 011 019 degrees QTc Int : 511 ms POOR DATA QUALITY, INTERPRETATION MAY BE ADVERSELY AFFECTED BASELINE ARTIFACT SINUS RHYTHM NONSPECIFIC ST AND T WAVE ABNORMALITY COMPARED TO EKG OF 01 MAY 2017 NO GROSS ABNORMALITIES REPEAT EKG IF CLINICALLY INDICATED Confirmed by JAKUB ISRAEL MD ([id number] on 06/17/2017 6:57:13 PM Referred By: Confirmed By:JAKUB ISRAEL MD
[2017-06-17 20:07] LABS: URINE MARIJUANA THC NEGATIVE ng/ml (CUTOFF=50)
[2017-06-17 21:52] LABS: ANION GAP 10 (8-16); CALCIUM 7.5 mg/dL (8.5-10.1); CO2 22 mmol/L (21-32); CREATININE 1.4 mg/dL (0.7-1.3); GLUCOSE,RANDOM 177 mg/dL (74-106)
[2017-06-17] MEDS ORDERED: INSULIN DETEMIR 100 UNITS/ML MDV SQ SCH ×2 (22:00)
[2017-06-18] MEDS ORDERED: ONDANSETRON 4 MG/2 ML VIAL IVPUSH STA
[2017-06-18] MEDS ORDERED: MAGNESIUM SULF 50% (8.12 MEQ/2 ML-1 GM VIAL) IVPB ONE (00:02)
[2017-06-18] MEDS ORDERED: MAGNESIUM HYDROX 2400MG/30ML ORAL SUSPENSION 30 ML CUP PO PRN (00:06)
[2017-06-18] MEDS ORDERED: LACTATED RINGERS SOLUTION 1,000 ML IV STA (00:19)
[2017-06-18] MEDS: KCL 10 MEQ IVPB 100 ML IVPB SCH ×3 (00:53→02:39)
[2017-06-18] MEDS: PIPERACILLIN/TAZOB 3.375 GM 50 ML IVPB SCH ×3 (01:09→17:27)
[2017-06-18] MEDS: CLINDAMYCIN 600MG PREMIX IVPB 50 ML IVPB SCH ×4 (02:39→20:33)
[2017-06-18] MEDS ORDERED: HEMOQUE TEST 1 EACH EACH ONE (02:50)
[2017-06-18] MEDS: GABAPENTIN 100 MG CAPSULE (FP) PO SCH ×3 (05:29→21:52)
[2017-06-18] MEDS ORDERED: INSULIN (NOVOLOG MIX 70/30) 100 UNITS/ML MDV SQ ONE (05:36)
[2017-06-18] MEDS ORDERED: HYDROmorphone HCL CARPU-JECT 2 MG/1 ML DISP.SYRIN IVPUSH ONE (06:08)
[2017-06-18] MEDS: ONDANSETRON 4 MG/2 ML VIAL IVPB PRN ×2 (06:09→11:30)
[2017-06-18 06:16] LABS: MCH 24.4 pg (25.7-33.7); MCHC 32.3 g/dl (32.0-35.9); MEAN CELL VOLUME 75.7 fl (80-96); MEAN PLT VOLUME 7.9 fl (7.5-11.1); PLATELET COUNT 482 K/MM3 (134-434); RDW 15.9 % (11.9-15.9); WHITE BLOOD COUNT 26.9 K/mm3 (4.0-10.0)
[2017-06-18 06:42] LABS: ANION GAP 16 (8-16); CALCIUM 7.2 mg/dL (8.5-10.1); CO2 17 mmol/L (21-32); CREATININE 1.2 mg/dL (0.7-1.3); GLUCOSE,RANDOM 162 mg/dL (74-106)
[2017-06-18] MEDS ORDERED: INSULIN DETEMIR 100 UNITS/ML MDV SQ SCH ×2 (07:00→10:00)
[2017-06-18 07:30] LABS: PLATELET ESTIMATE SLT INCREASED (NORMAL); TOTAL CELLS COUNTED 100
--- NOTE | 2017-06-18 09:22 | PN ---
Progress Note (short form) - Note Progress Note: Seen and examined in the ICU Remains on insulin drip this AM, AG closed, blood sugar improved c/o nausea w/ NBNB emesis, denies: CP/MORALES/SOB Low grade fever ID and surgery consulted for wound infection Active Medications Gabapentin (Neurontin -) 100 mg PO TID JESUS Last Admin: 06/18/17 05:29 Dose: 100 mg Hydromorphone HCl (Dilaudid Injection -) 2 mg IVPUSH Q4H PRN PRN Reason: PAIN Clindamycin Phosphate (Cleocin 600 Mg Premix Ivpb -) 50 mls @ 100 mls/hr IVPB Q6H-IV JESUS Last Admin: 06/18/17 02:39 Dose: 100 mls/hr Piperacillin Sod/Tazobactam Sod (Zosyn 3.375gm Ivpb (Pre-Docked)) 50 mls @ 100 mls/hr IVPB Q8H-IV JESUS PRN Reason: Protocol Last Admin: 06/18/17 01:09 Dose: 100 mls/hr Insulin Human Regular 100 (units/ Sodium Chloride) 100 mls @ 2 mls/hr IVPB TITR JESUS; 2 UNITS/HR PRN Reason: Protocol Last Titration: 06/18/17 00:00 Dose: 1 units/hr Dextrose/Sodium Chloride (Dextrose 5%-Normal Saline+40 Meq Kcl -) 1,000 mls @ 125 mls/hr IV ASDIR JESUS Last Admin: 06/17/17 16:50 Dose: 125 mls/hr Famotidine/Sodium Chloride (Pepcid 20 Mg Premixed Ivpb -) 50 mls @ 100 mls/hr IVPB BID JESUS Insulin Aspart (Novolog Vial) 0 units SQ ACHS JESUS PRN Reason: Protocol Insulin Detemir (Levemir Vial) 15 units SQ HS JESUS Magnesium Hydroxide (Milk Of Magnesia -) 30 ml PO Q8H PRN PRN Reason: DYSPEPSIA Last Admin: 06/18/17 06:16 Dose: 30 ml Ondansetron HCl (Zofran Injection) 4 mg IVPB Q6H PRN PRN Reason: NAUSEA Last Admin: 06/18/17 06:09 Dose: 4 mg Vital Signs Period Temp Pulse Resp BP Sys/Monet Pulse Ox Last 24 Hr 98 F-100.2 F 86-115 15-20 84-151/50-94 95-99 Intake & Output 06/15/17 06/16/17 06/17/17 06/18/17 23:59 23:59 23:59 23:59 Intake Total 259 2645 Output Total 2049 1999 Balance 540 645 Weight 95.254 kg 99.337 kg 107 kg Exam: awake, alert and crying out in discomfort Pulm: CTA CV: RRR Abd: obese, SNTND Ext: stump w/o purulent drainage CBCD WBC 26.9 K/mm3 (4.0-10.0) H D 06/18/17 06:00 RBC 3.66 M/mm3 (4.00-5.60) L 06/18/17 06:00 Hgb 9.0 GM/dL (11.7-16.9) L 06/18/17 06:00 Hct 27.7 % (35.4-49) L 06/18/17 06:00 MCV 75.7 fl (80-96) L 06/18/17 06:00 MCHC 32.3 g/dl (32.0-35.9) 06/18/17 06:00 RDW 15.9 % (11.9-15.9) 06/18/17 06:00 Plt Count 482 K/MM3 (134-434) H 06/18/17 06:00 MPV 7.9 fl (7.5-11.1) 06/18/17 06:00 CMP Sodium 134 mmol/L (136-145) L 06/18/17 06:00 Potassium 3.4 mmol/L (3.5-5.1) L 06/18/17 06:00 Chloride 101 mmol/L (98-107) 06/18/17 06:00 Carbon Dioxide 17 mmol/L (21-32) L D 06/18/17 06:00 Anion Gap 16 (8-16) 06/18/17 06:00 BUN 24 mg/dL (7-18) H 06/18/17 06:00 Creatinine 1.2 mg/dL (0.7-1.3) 06/18/17 06:00 Creat Clearance w eGFR 59.43 (>60) 06/17/17 17:05 Random Glucose 162 mg/dL (74-106) H 06/18/17 06:00 Calcium 7.2 mg/dL (8.5-10.1) L 06/18/17 06:00 Total Bilirubin 0.4 mg/dL (0.2-1.0) D 06/17/17 17:05 AST 19 U/L (15-37) D 06/17/17 17:05 ALT 10 U/L (12-78) L 06/17/17 17:05 Alkaline Phosphatase 417 U/L (45-117) H 06/17/17 17:05 Total Protein 4.6 g/dl (6.4-8.2) L 06/17/17 17:05 Albumin 1.1 g/dl (3.4-5.0) L 06/17/17 17:05 CARDIAC ENZYMES Creatine Kinase 69 IU/L (39-308) 06/17/17 12:52 Troponin I < 0.02 ng/ml (0.00-0.05) 06/17/17 00:05 CXR: PVC, no focal consolidation Problem List - Problems (1) Sepsis Code(s): A41.9 - SEPSIS, UNSPECIFIED ORGANISM (2) Abscess and cellulitis Code(s): L03.90 - CELLULITIS, UNSPECIFIED L02.91 - CUTANEOUS ABSCESS, UNSPECIFIED (3) Cellulitis and abscess of left leg Code(s): L03.116 - CELLULITIS OF LEFT LOWER LIMB L02.416 - CUTANEOUS ABSCESS OF LEFT LOWER LIMB (4) Intractable vomiting with nausea Code(s): R11.2 - NAUSEA WITH VOMITING, UNSPECIFIED Qualifiers: Vomiting type: unspecified Qualified Code(s): R11.2 - Nausea with vomiting, unspecified; R11.2 - Nausea with vomiting, unspecified (5) Noncompliance with diabetes treatment Code(s): Z91.19 - PATIENT'S NONCOMPLIANCE W OTH MEDICAL TREATMENT AND REGIMEN (6) Diabetic ulcer of lower extremity Code(s): E11.622 - TYPE 2 DIABETES MELLITUS WITH OTHER SKIN ULCER L97.909 - NON-PRS CHRONIC ULC UNSP PRT OF UNSP LOW LEG W UNSP SEVERITY Assessment/Plan ASSESS: This is a 47 y/o man w/ uncontrolled DM II, non-compliant, c/c/b L BKA, multiple soft tissues infections, hx of MRSA. Pt presents to the ED c/o worsening posterior LLE pain X 1 Wk. Pt admitted to the ICU now for Sepsis (m/l LLE deep tissue infection), as well as metabolic disarray. PLAN: -ID following cont ABX -Pain management w/ IV Dilaudid -transition from insulin drip to levemir w/ ISS -Trend AG -PM BMP -Strict I's & O's -Monitor UOP -Trend BUN/Cr -Replete e-lytes prn -BR -Advacne diet -zofran for nausea -SQH -PPI (GERD) -VASC Consult Tomaszrem ACNP Pulm/CCM CCT: 38 Critical Care Time/MDM Note Critical Care Statement: The care of this patient involved high complexity decision making to prevent further life threatening deterioration of the patient 's condition and/or to evaluate & treat vital organ system(s) failure or risk of failure.
[2017-06-18] MEDS ORDERED: VANCOMYCIN 1 GRAM (PRE-DOCKED) 1,000 MG/250 ML BAG IVPB SCH ×2 (10:00)
[2017-06-18] MEDS: FAMOTIDINE 20 MG/50 ML IVPB 50 ML IVPB SCH ×2 (10:02→21:49)
[2017-06-18] MEDS: HYDROmorphone HCL CARPU-JECT 2 MG/1 ML DISP.SYRIN IVPUSH PRN (11:34)
[2017-06-18] MEDS: INSULIN SLIDING SCALE (NOVOLOG) 1 VIAL SQ SCH ×3 (12:50→22:04)
[2017-06-18] MEDS ORDERED: ACETAMINOPHEN 1000 MG/100 ML VIAL (NON FORMULARY) IVPB ONE (12:52)
[2017-06-18] MEDS ORDERED: METOCLOPRAMIDE HCL INJECTION 10 MG/2 ML VIAL IVPB ONE (12:52)
--- NOTE | 2017-06-18 15:16 | PN ---
Progress Note, Physician History of Present Illness: says he is feeling better from leg prespective feeling hypoglycemic sugars in 90 given juice patient wbc is higher restless - Current Medication List Current Medications: Active Medications Gabapentin (Neurontin -) 100 mg PO TID JESUS Last Admin: 06/18/17 05:29 Dose: 100 mg Hydromorphone HCl (Dilaudid Injection -) 2 mg IVPUSH Q4H PRN PRN Reason: PAIN Last Admin: 06/18/17 11:34 Dose: 2 mg Clindamycin Phosphate (Cleocin 600 Mg Premix Ivpb -) 50 mls @ 100 mls/hr IVPB Q6H-IV JESUS Last Admin: 06/18/17 10:00 Dose: 100 mls/hr Piperacillin Sod/Tazobactam Sod (Zosyn 3.375gm Ivpb (Pre-Docked)) 50 mls @ 100 mls/hr IVPB Q8H-IV JESUS PRN Reason: Protocol Last Admin: 06/18/17 10:02 Dose: 100 mls/hr Dextrose/Sodium Chloride (Dextrose 5%-Normal Saline+40 Meq Kcl -) 1,000 mls @ 125 mls/hr IV ASDIR JESUS Last Admin: 06/17/17 16:50 Dose: 125 mls/hr Famotidine/Sodium Chloride (Pepcid 20 Mg Premixed Ivpb -) 50 mls @ 100 mls/hr IVPB BID JESUS Last Admin: 06/18/17 10:02 Dose: 100 mls/hr Insulin Aspart (Novolog Vial Sliding Scale -) 1 vial SQ ACHS JESUS PRN Reason: Protocol Last Admin: 06/18/17 12:50 Dose: 6 units Insulin Detemir (Levemir Vial) 15 units SQ HS JESUS Last Admin: 06/18/17 10:03 Dose: 15 units Magnesium Hydroxide (Milk Of Magnesia -) 30 ml PO Q8H PRN PRN Reason: DYSPEPSIA Last Admin: 06/18/17 06:16 Dose: 30 ml Ondansetron HCl (Zofran Injection) 4 mg IVPB Q6H PRN PRN Reason: NAUSEA Last Admin: 06/18/17 11:30 Dose: 4 mg - Objective Vital Signs: Vital Signs Temperature 98.5 F 06/18/17 14:00 Pulse Rate 91 H 06/18/17 12:00 Respiratory Rate 18 06/18/17 14:00 Blood Pressure 123/88 06/18/17 14:00 O2 Sat by Pulse Oximetry (%) 99 06/18/17 09:00 Constitutional: Yes: Anxious, Moderate Distress, Other Cardiovascular: Yes: Regular Rate and Rhythm Respiratory: Yes: Regular, CTA Bilaterally Integumentary: Yes: Erythema (better) Wound/Incision: Yes: Other (clean no draiange noted) Neurological: Yes: Alert, Oriented Psychiatric: Yes: Alert, Oriented Labs: CBC, BMP 06/18/17 06:00 06/18/17 06:00 INR, PTT INR 1.07 (0.82-1.09) 06/17/17 00:05 - ....Imaging X-ray: Report Reviewed, Image Reviewed Assessment/Plan Problem List - Problems (1) Sepsis Code(s): A41.9 - SEPSIS, UNSPECIFIED ORGANISM (2) Abscess and cellulitis Code(s): L03.90 - CELLULITIS, UNSPECIFIED L02.91 - CUTANEOUS ABSCESS, UNSPECIFIED (3) Cellulitis and abscess of left leg Code(s): L03.116 - CELLULITIS OF LEFT LOWER LIMB L02.416 - CUTANEOUS ABSCESS OF LEFT LOWER LIMB (4) Intractable vomiting with nausea Code(s): R11.2 - NAUSEA WITH VOMITING, UNSPECIFIED Qualifiers: Vomiting type: unspecified Qualified Code(s): R11.2 - Nausea with vomiting, unspecified; R11.2 - Nausea with vomiting, unspecified (5) Noncompliance with diabetes treatment Code(s): Z91.19 - PATIENT'S NONCOMPLIANCE W OTH MEDICAL TREATMENT AND REGIMEN (6) Diabetic ulcer of lower extremity Code(s): E11.622 - TYPE 2 DIABETES MELLITUS WITH OTHER SKIN ULCER L97.909 - NON-PRS CHRONIC ULC UNSP PRT OF UNSP LOW LEG W UNSP SEVERITY lactic acidosis leukocytosis continue abx close watch on the leg if patient detoriates re ct scan of the leg hydration keep sugar above 110 at least res as per icu cc time 40 min
--- NOTE | 2017-06-18 15:48 | PN ---
Physical Exam: SUBJECTIVE: Patient seen and examined. He says his posterior knee pain is better , however he continues to yell out. Events: - AG closed, insulin gtt stopped - Vomiting green clear emesis - hypoglycemic this afternoon OBJECTIVE: Vital Signs Period Temp Pulse Resp BP Sys/Monet Pulse Ox Last 24 Hr 98 F-98.6 F 86-104 16-20 84-151/50-94 99-99 PE Neuro: alert,awake, cn 2-12intact Pulm: CTA CV: s1s2 rrr Abd: s nt nd +bs Ext: (L lateral knee wound, clean, no drainage, open healed RUE graft, RLE scar Laboratory Results - last 24 hr 06/17/17 06/17/17 06/17/17 17:05 17:05 18:50 WBC RBC Hgb Hct MCV MCH MCHC RDW Plt Count MPV Total Counted Neutrophils % (Manual) Lymphocytes % (Manual) Eosinophils % (Manual) Platelet Estimate Platelet Comment Sodium 128 L Potassium 2.9 L* Chloride 97 L Carbon Dioxide 20 L Anion Gap 11 BUN 26 H Creatinine 1.3 Creat Clearance w eGFR 59.43 Random Glucose 123 H Hemoglobin A1c % Lactic Acid 1.9 Calcium 7.3 L Total Bilirubin 0.4 D AST 19 D ALT 10 L Alkaline Phosphatase 417 H Total Protein 4.6 L Albumin 1.1 L Random Vancomycin Opiates Screen Positive Methadone Screen Negative Barbiturate Screen Negative Phencyclidine Screen Negative Ur Amphetamines Screen Negative MDMA (Ecstasy) Screen Negative Benzodiazepines Screen Negative Cocaine Screen Negative U Marijuana (THC) Screen Negative 06/17/17 06/18/17 06/18/17 21:00 06:00 06:00 WBC 26.9 H D RBC 3.66 L Hgb 9.0 L Hct 27.7 L MCV 75.7 L MCH 24.4 L MCHC 32.3 RDW 15.9 Plt Count 482 H MPV 7.9 Total Counted 100 Neutrophils % (Manual) 98 H* Lymphocytes % (Manual) 1 L Eosinophils % (Manual) 1 Platelet Estimate Slt increased Platelet Comment Rare giant plts Sodium 130 L Potassium 3.4 L Chloride 98 Carbon Dioxide 22 Anion Gap 10 BUN 26 H Creatinine 1.4 H Creat Clearance w eGFR Random Glucose 177 H D Hemoglobin A1c % Lactic Acid Calcium 7.5 L Total Bilirubin AST ALT Alkaline Phosphatase Total Protein Albumin Random Vancomycin 4.867 Opiates Screen Methadone Screen Barbiturate Screen Phencyclidine Screen Ur Amphetamines Screen MDMA (Ecstasy) Screen Benzodiazepines Screen Cocaine Screen U Marijuana (THC) Screen 06/18/17 06/18/17 06/18/17 06:00 06:00 06:00 WBC RBC Hgb Hct MCV MCH MCHC RDW Plt Count MPV Total Counted Neutrophils % (Manual) Lymphocytes % (Manual) Eosinophils % (Manual) Platelet Estimate Platelet Comment Sodium 134 L Potassium 3.4 L Chloride 101 Carbon Dioxide 17 L D Anion Gap 16 BUN 24 H Creatinine 1.2 Creat Clearance w eGFR Random Glucose 162 H Hemoglobin A1c % 15.0 H Lactic Acid 1.0 Calcium 7.2 L Total Bilirubin AST ALT Alkaline Phosphatase Total Protein Albumin Random Vancomycin Opiates Screen Methadone Screen Barbiturate Screen Phencyclidine Screen Ur Amphetamines Screen MDMA (Ecstasy) Screen Benzodiazepines Screen Cocaine Screen U Marijuana (THC) Screen Active Medications Generic Name Dose Route Start Last Admin Trade Name Freq PRN Reason Stop Dose Admin Gabapentin 100 mg 06/17/17 14:00 06/18/17 05:29 Neurontin - PO 100 mg TID JESUS Administration Hydromorphone HCl 2 mg 06/18/17 06:53 06/18/17 11:34 Dilaudid Injection - IVPUSH 2 mg Q4H PRN Administration PAIN Clindamycin Phosphate 50 mls @ 100 mls/hr 06/17/17 15:00 06/18/17 10:00 Cleocin 600 Mg Premix Ivpb - IVPB 100 mls/hr Q6H-IV JESUS Administration Piperacillin Sod/Tazobactam Sod 50 mls @ 100 mls/hr 06/17/17 18:00 06/18/17 10: 02 Zosyn 3.375gm Ivpb (Pre-Docked) IVPB 100 mls/hr Q8H-IV JESUS Administration Protocol Dextrose/Sodium Chloride 1,000 mls @ 125 mls/hr 06/17/17 16:00 06/17/17 16:50 Dextrose 5%-Normal Saline+40 Meq Kcl - IV 125 mls/hr ASDIR JESUS Administration Famotidine/Sodium Chloride 50 mls @ 100 mls/hr 06/18/17 10:00 06/18/17 10:02 Pepcid 20 Mg Premixed Ivpb - IVPB 100 mls/hr BID JESUS Administration Insulin Aspart 1 vial 06/18/17 11:00 06/18/17 12:50 Novolog Vial Sliding Scale - SQ 6 units ACHS JESUS Administration Protocol Insulin Detemir 15 units 06/18/17 10:00 06/18/17 10:03 Levemir Vial SQ 15 units HS JESUS Administration Magnesium Hydroxide 30 ml 06/18/17 00:06 06/18/17 06:16 Milk Of Magnesia - PO 30 ml Q8H PRN Administration DYSPEPSIA Ondansetron HCl 4 mg 06/17/17 13:40 06/18/17 11:30 Zofran Injection IVPB 4 mg Q6H PRN Administration NAUSEA Assessment: 47 year old male with uncontrolled DM II, multiple soft tissues infections, hx of MRSA, s/p Left BKA admitted with worsening posterior left leg pain for 1 week and sepsis. Plan: 1. Sepsis - Continue vanco, zosyn, clindamycin - Continue fluids, decrease to 75cc/hr - Lactic acid wnl - Repeat CBC pending, clinically appears improved, elevation possible from vomiting 2. Hyperglycemia vs DKA - Anion gap closed - Levemir 15units qAM - Keep sugars ~150 - Keep fluids until able to hold down PO x3 meals 4. Hypokalemia - Repletion with fluids 5. Lactic acidosis - Resolved 6. KENDRICK - Resolving 7. Proteinuria - Pt has active sediment - Likely due to uncontrolled DM - Will need renal work up - Will need MAYA inhibitor, however pt known to be medication non compliant 8. DM II - See above 9. Hyponatremia - Improving 10. Vomiting - Improved after reglan - abd xray negative - Visit type - Emergency Visit Emergency Visit: Yes ED Registration Date: 06/17/17 Care time: The patient presented to the Emergency Department on the above date and was hospitalized for further evaluation of their emergent condition. - New Patient This patient is new to me today: Yes Date on this admission: 06/18/17 - Critical Care Critical Care patient: Yes Total Critical Care Time (in minutes): 35 Critical Care Statement: The care of this patient involved high complexity decision making to prevent further life threatening deterioration of the patient 's condition and/or to evaluate & treat vital organ system(s) failure or risk of failure. - Discharge Referral Referred to [facility] No
[2017-06-18 16:35] LABS: ALBUMIN 1.2 g/dl (3.4-5.0); ANION GAP 11 (8-16); CALCIUM 7.7 mg/dL (8.5-10.1); CO2 22 mmol/L (21-32); CREATININE 1.2 mg/dL (0.7-1.3); GLUCOSE,RANDOM 93 mg/dL (74-106); SGOT/AST 27 U/L (15-37); SGPT/ALT 10 U/L (12-78)
[2017-06-18 16:37] LABS: ALK PHOS 664 U/L (45-117); BILIRUBIN,TOTAL 0.4 mg/dL (0.2-1.0)
[2017-06-18] MEDS ORDERED: oxyCODONE HCL 5 MG TABLET PO PRN (17:13)
[2017-06-18] MEDS ORDERED: D5-NS + 40 MEQ KCL - 1,000 ML IV SCH ×2 (17:49→19:09)
[2017-06-18 18:01] LABS: MCH 24.2 pg (25.7-33.7); MCHC 32.1 g/dl (32.0-35.9); MEAN CELL VOLUME 75.6 fl (80-96); MEAN PLT VOLUME 7.6 fl (7.5-11.1); PLATELET COUNT 552 K/MM3 (134-434); RDW 16.5 % (11.9-15.9)
[2017-06-18 18:05] LABS: WHITE BLOOD COUNT 31.1 K/mm3 (4.0-10.0)
[2017-06-18] MEDS ORDERED: oxyCODONE HCL 5 MG TABLET PO ONE (18:30)
[2017-06-18] MEDS ORDERED: VANCOMYCIN 1,500 MG in DEXTROSE 5%-WATER - 500 ML IVPB ONE (18:55)
[2017-06-18] MEDS ORDERED: METOCLOPRAMIDE HCL INJECTION 10 MG/2 ML VIAL IVPB PRN (19:11)
[2017-06-18 19:20] LABS: NUCLEATED RED BLOOD CELL 1 % (0-0); PLATELET ESTIMATE MOD INCREASED (NORMAL); TOTAL CELLS COUNTED 100
[2017-06-18] MEDS: METRONIDAZOLE 500 MG PREMIXED 100 ML IVPB SCH (19:52)
[2017-06-18] MEDS ORDERED: LORazepam 2 MG/ML SDV VIAL IVPUSH ONE (20:42)
[2017-06-18] MEDS ORDERED: LORazepam 2 MG/ML SDV VIAL ONE (20:46)
[2017-06-18] MEDS: COLLAGENASE CLOSTRIDIUM HIST. 30 GRAMS TUBE TP SCH (21:50)
[2017-06-18] MEDS: LIDOCAINE 5% TOPICAL PATCH TP SCH (21:52)
[2017-06-18] MEDS: D5-1/2NS+20 MEQ KCL - 1,000 ML IV SCH (21:53)
[2017-06-19] MEDS ORDERED: LORazepam 2 MG/ML SDV VIAL ONE ×2 (00:57→14:28)
[2017-06-19] MEDS: PIPERACILLIN/TAZOB 3.375 GM 50 ML IVPB SCH ×3 (02:10→20:13)
[2017-06-19] MEDS: CLINDAMYCIN 600MG PREMIX IVPB 50 ML IVPB SCH ×4 (02:10→21:02)
[2017-06-19] MEDS: METRONIDAZOLE 500 MG PREMIXED 100 ML IVPB SCH ×3 (02:10→18:29)
[2017-06-19] MEDS: GABAPENTIN 100 MG CAPSULE (FP) PO SCH ×3 (06:35→22:50)
[2017-06-19] MEDS: INSULIN DETEMIR 100 UNITS/ML MDV SQ SCH (06:36)
[2017-06-19] MEDS: INSULIN SLIDING SCALE (NOVOLOG) 1 VIAL SQ SCH ×4 (06:36→22:51)
[2017-06-19 07:23] LABS: MCH 24.4 pg (25.7-33.7); MEAN PLT VOLUME 7.4 fl (7.5-11.1); PLATELET COUNT 547 K/MM3 (134-434); RDW 16.5 % (11.9-15.9); WHITE BLOOD COUNT 23.2 K/mm3 (4.0-10.0)
[2017-06-19 07:47] LABS: AMYLASE 16 U/L (25-115); ANION GAP 16 (8-16); CALCIUM 7.5 mg/dL (8.5-10.1); CO2 16 mmol/L (21-32); CREATININE 1.1 mg/dL (0.7-1.3); GLUCOSE,RANDOM 241 mg/dL (74-106); MAGNESIUM 2.7 mg/dL (1.8-2.4); PHOSPHOROUS 2.2 mg/dL (2.5-4.9)
[2017-06-19] MEDS ORDERED: HEMOQUE TEST 1 EACH EACH ONE (08:49)
--- NOTE | 2017-06-19 08:51 | CONSULT ---
Consult - Past Medical History Cardio/Vascular: Yes: HTN, Hyperlipdemia Gastrointestinal: Yes: GERD Infectious Disease: Yes: MRSA (several years ago) Musculoskeletal: Yes: Other Endocrine: Yes: Diabetes Mellitus Dermatology: Yes: Cellulitis (mrsa) - Past Surgical History Past Surgical History: Yes: Amputation (left BKA) - Alcohol/Substance Use Hx Alcohol Use: No - Smoking History Smoking history: Former smoker Have you smoked in the past 12 months: No Aproximately how many cigarettes per day: 0 If you are a former smoker, when did you quit?: 10 years ago - Social History Usual Living Arrangement: With Spouse ADL: Independent History of Recent Travel: No Home Medications - Allergies Allergies/Adverse Reactions: Allergies Allergy/AdvReac Type Severity Reaction Status Date / Time No Known Allergies Allergy Verified 06/16/17 23:22 - Home Medications Home Medications: Ambulatory Orders Collagenase Clostridium Hist. [Santyl] 1 applic TP DAILY #1 oint...g. 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 The pain is located behind the left knee radiating up the posterior thight. Patient is complaining of associated nausea, vomiting, fevers and chills. He says that he felt like he had the flu 4 days ago, with associated body aches and fevers. He has a chronic draining wound on his left leg that he's been following with hyperbaric and my self. Pt does not have PCP, nor does he go to anyone for his DM Past History - Past Medical History Allergies/Adverse Reactions: Allergies Allergy/AdvReac Type Severity Reaction Status Date / Time No Known Allergies Allergy Verified 06/16/17 23:22 Home Medications: Ambulatory Orders Collagenase Clostridium Hist. [Santyl] 1 applic TP DAILY #1 oint...g. 05/26/17 Oxycodone HCl/Acetaminophen [Percocet 10-325 mg Tablet] 1 each PO Q6H PRN Anemia: No Asthma: No Cancer: No Cardiac Disorders: Yes (DVT) CVA: No COPD: No CHF: No Dementia: No Diabetes: Yes (pt denies taking any meds) GI Disorders: (REFLUX) Disorders: No HTN: Yes Hypercholesterolemia: No Liver Disease: No Seizures: No Thyroid Disease: No - Surgical History Abdominal Surgery: No Appendectomy: No Cardiac Surgery: No Cholecystectomy: No Lung Surgery: No Neurologic Surgery: No Orthopedic Surgery: No - Family Disease History Family Disease History: Diabetes: Father - Immunization History Immunization Up to Date: Yes - Suicide/Smoking/Psychosocial Hx Smoking Status: No Smoking History: Unknown if ever smoked Have you smoked in the past 12 months: No Number of Cigarettes Smoked Daily: 0 Information on smoking cessation initiated: No Hx Alcohol Use: No Drug/Substance Use Hx: No Substance Use Type: Alcohol Hx Substance Use Treatment: No PE Head - NC/At Lung - CTA heart - RRR abd - soft,nt,nd ext - left bka stump - wound clean. Pt with a lot of pain upon palpation. WBC is coming down to 23. A/P Left lower ext with cellulitis. Pt with uncontrolled sugars -- now off drip. First CT scan of left leg showed no surgical pathology. Reviewed repeat CT of leg done last night -- no acute patholgy can be seen. Will wait for official read from radiology. Cont IV antibiotics Costa Jennings DO
[2017-06-19] MEDS ORDERED: NAPH,MB-DB/K PH,MBDB POWDER PACKET PO ONE (09:07)
[2017-06-19] MEDS: FAMOTIDINE 20 MG/50 ML IVPB 50 ML IVPB SCH ×2 (09:33→22:43)
[2017-06-19] MEDS: LIDOCAINE PATCH REMOVAL MC SCH (10:00)
[2017-06-19] MEDS: oxyCODONE HCL 5 MG TABLET PO PRN ×2 (10:16→18:28)
[2017-06-19 10:38] LABS: C-REACTIVE PROTEIN 13.2 MG/DL (0.00-0.3)
[2017-06-19] MEDS: COLLAGENASE CLOSTRIDIUM HIST. 30 GRAMS TUBE TP SCH (11:00)
[2017-06-19] MEDS ORDERED: INSULIN (NOVOLOG) ASPART 100 UNITS/ML 10ML VIAL ONE (11:34)
[2017-06-19] MEDS ORDERED: SODIUM CHLORIDE 1,000 ML IV STA (11:41)
--- NOTE | 2017-06-19 12:44 | PN ---
Physical Exam: SUBJECTIVE: 47 yo M with uncontrolled DM II, right elbow nec fasc, left leg below the knee amputation, h/o MRSA of left buttock,chronic wound of left leg receiving hyperbaric oxygen and multiple soft tissues infections, who initially presented to the ED with worsening posterior LLE pain of one month and admitted to the ICU for Sepsis, and metabolic disarray. Overnight Nurses report patient was agitated and screaming out in pain, with complaint of left leg pain at site of ulcer. His pain was refractory to fenatnyl this AM. Also received lorazepam injection. Nurse reports that through hospital course patient has had recurrent N/V with hydromorphone. This morning on encounter patient was agitated, ripped off his leads, and threatening to leave AMA. He was screaming and writhing with complaint of left hamstring pain. OBJECTIVE: Vital Signs Period Temp Pulse Resp BP Sys/Monet Pulse Ox Last 24 Hr 98.5 F-99.8 F 92-113 12-24 117-174/78-100 99 GENERAL: The patient is awake, alert, and fully oriented. He is agitated and yelling/crying on encounter. HEAD: Normal with no signs of trauma. EYES: PERRL, extraocular movements intact, sclera anicteric, conjunctiva clear. No ptosis. LUNGS: Breath sounds equal, clear to auscultation bilaterally, no wheezes, no crackles, no accessory muscle use. HEART: Regular rate and rhythm, S1, S2 without murmur, rub or gallop. ABDOMEN: Soft, nontender, nondistended, normoactive bowel sounds, no guarding, no rebound, no hepatosplenomegaly, no masses. EXTREMITIES: Left leg amputation below knee. gauze in place on left lateral leg. Wound is ulcerated, c/d/i. No evidence of erythema, fluctuance, crepitus, or warmth. 2+ pulses, warm, well-perfused, no edema. PSYCH: Normal mood, normal affect. SKIN: Warm, dry, normal turgor, no rashes or lesions noted Laboratory Results - last 24 hr 06/17/17 06/18/17 06/18/17 07:40 15:56 17:54 WBC 31.1 H* RBC 4.35 Hgb 10.5 L D Hct 32.9 L D MCV 75.6 L MCH 24.2 L MCHC 32.1 RDW 16.5 H Plt Count 552 H MPV 7.6 Total Counted 100 Neutrophils % No Result Required. Neutrophils % (Manual) 87 H Band Neuts % (Manual) 6 Lymphocytes % No Result Required. Lymphocytes % (Manual) 3 L D Monocytes % (Manual) 3 L Eosinophils % (Manual) 1 Nucleated RBC % 1 H Other Cell Type Platelet Estimate Mod increased Platelet Comment Few large plts Sodium 136 Potassium 3.3 L Chloride 103 Carbon Dioxide 22 D Anion Gap 11 BUN 23 H Creatinine 1.2 Creat Clearance w eGFR > 60 POC Glucometer > 400 Random Glucose 93 D Lactic Acid Calcium 7.7 L Phosphorus Magnesium Total Bilirubin 0.4 AST 27 D ALT 10 L Alkaline Phosphatase 664 H D C-Reactive Protein Total Protein 5.0 L Albumin 1.2 L Total Amylase 06/18/17 06/19/17 06/19/17 18:45 05:00 05:00 WBC 23.2 H RBC 4.06 Hgb 9.9 L Hct 30.9 L MCV 76.0 L MCH 24.4 L MCHC 32.0 RDW 16.5 H Plt Count 547 H MPV 7.4 L Total Counted Neutrophils % Neutrophils % (Manual) Band Neuts % (Manual) Lymphocytes % Lymphocytes % (Manual) Monocytes % (Manual) Eosinophils % (Manual) Nucleated RBC % Other Cell Type Platelet Estimate Platelet Comment Sodium 137 Potassium 3.6 Chloride 105 Carbon Dioxide 16 L D Anion Gap 16 BUN 18 D Creatinine 1.1 Creat Clearance w eGFR POC Glucometer Random Glucose 241 H D Lactic Acid 1.5 Calcium 7.5 L Phosphorus 2.2 L Magnesium 2.7 H Total Bilirubin AST ALT Alkaline Phosphatase C-Reactive Protein 13.2 H D Total Protein Albumin Total Amylase 16 L 06/19/17 06/19/17 05:00 05:00 WBC RBC Hgb Hct MCV MCH MCHC RDW Plt Count MPV Total Counted Neutrophils % Neutrophils % (Manual) Band Neuts % (Manual) Lymphocytes % Lymphocytes % (Manual) Monocytes % (Manual) Eosinophils % (Manual) Nucleated RBC % Other Cell Type Platelet Estimate Platelet Comment Sodium Potassium Chloride Carbon Dioxide Anion Gap BUN Creatinine Creat Clearance w eGFR POC Glucometer Random Glucose Lactic Acid 0.8 Calcium Phosphorus Magnesium Total Bilirubin AST ALT Alkaline Phosphatase C-Reactive Protein Cancelled Total Protein Albumin Total Amylase Active Medications Generic Name Dose Route Start Last Admin Trade Name Julee PRN Reason Stop Dose Admin Collagenase 1 applic 06/18/17 17:15 06/18/17 21:50 Santyl - TP 1 applic DAILY JESUS Administration Diphenhydramine HCl 25 mg 06/18/17 19:11 Benadryl Injection - IVPB Q8H PRN NAUSEA Gabapentin 100 mg 06/17/17 14:00 06/19/17 06:35 Neurontin - PO 100 mg TID JESUS Administration Hydromorphone HCl 2 mg 06/18/17 06:53 Dilaudid Injection - IVPUSH Q4H PRN PAIN Clindamycin Phosphate 50 mls @ 100 mls/hr 06/17/17 15:00 06/19/17 09:35 Cleocin 600 Mg Premix Ivpb - IVPB 100 mls/hr Q6H-IV JESUS Administration Piperacillin Sod/Tazobactam Sod 50 mls @ 100 mls/hr 06/17/17 18:00 06/19/17 09: 35 Zosyn 3.375gm Ivpb (Pre-Docked) IVPB 100 mls/hr Q8H-IV JESUS Administration Protocol Famotidine/Sodium Chloride 50 mls @ 100 mls/hr 06/18/17 10:00 06/19/17 09:33 Pepcid 20 Mg Premixed Ivpb - IVPB 100 mls/hr BID JESUS Administration Metronidazole 100 mls @ 100 mls/hr 06/18/17 18:30 06/19/17 09:33 Flagyl 500mg Premixed Ivpb - IVPB 100 mls/hr Q8H-IV JESUS Administration Dextrose/Sodium Chloride 1,000 mls @ 125 mls/hr 06/18/17 19:09 06/18/17 21:54 Dextrose 5%-Normal Saline+40 Meq Kcl - IV Not Given ASDIR JESUS Potassium Chloride/Dextrose/Sod Cl 1,000 mls @ 75 mls/hr 06/18/17 19:15 21:53 D5-1/2ns+20 Meq Kcl - IV 75 mls/hr ASDIR JESUS Administration Insulin Aspart 1 vial 06/18/17 21:09 06/19/17 06:36 Novolog Vial Sliding Scale - SQ 3 units ACHS JESUS Administration Protocol Insulin Detemir 15 units 06/19/17 07:00 06/19/17 06:36 Levemir Vial SQ 15 units AM JESUS Administration Lidocaine 1 patch 06/18/17 21:00 06/18/17 21:52 Lidoderm Patch - TP 1 patch HS JESUS Administration Metoclopramide HCl 10 mg 06/18/17 19:11 Reglan Injection - IVPB Q8H PRN NAUSEA AND/OR VOMITING Miscellaneous 1 each 06/19/17 10:00 Lidoderm Patch Removal MC DAILY JESUS Ondansetron HCl 4 mg 06/17/17 13:40 06/18/17 11:30 Zofran Injection IVPB 4 mg Q6H PRN Administration NAUSEA Oxycodone HCl 10 mg 06/18/17 18:31 06/19/17 10:16 Roxicodone - PO 10 mg Q4H PRN Administration PAIN ASSESSMENT/PLAN: 47 yo M with uncontrolled DM II, right elbow nec fasc, left leg below the knee amputation, h/o MRSA of left buttock,chronic wound of left leg receiving hyperbaric oxygen and multiple soft tissues infections, who initially presented to the ED with worsening posterior LLE pain of one month and admitted to the ICU for Sepsis, and metabolic disarray. Infectious Disease: Sepsis: Possible cellulitis left leg. - Left lower leg ulceration with h/o chronic treatment and hyperbaric oxygen therapy. - LLE CT (06/17): Sub Q fluid and fat stranding. Correlate clinically with cellulits. Confluent fluid/fat in posterior left thigh surrounding sciatic nerve. Absent sub Q gas. - Lactic acid 1.5 --> 0.8 Plan: - Continue flagyl, zosyn, clindamycin - 1 L NS bolus. . - CBC QD - CT LLE (06/19) ~ unremarkable - Cont pain control fentanyl, oxycodone. Endocrine: - Hyperglycemia vs DKA - Anion gap 16 (06/19) - Glucose ~241 Plan: - Levemir 15units Q AM - Novolog Sliding Scale - Keep sugars ~150 - 1 L NS bolus. Recheck lactic acid and BMP. - Resume insulin gtt if anion gap non resolved Renal: KENDRICK - Resolving - Cr1.8-->1.1 Hypokalemia - K+ 3.6 - Repletion D5NS K + 40 MeQ Hyponatremia - Resolved FEN: IV fluids, Lytes PRN, DM diet Dispo: Med/Surg Transfer Visit type - Emergency Visit Emergency Visit: Yes ED Registration Date: 06/17/17 Care time: The patient presented to the Emergency Department on the above date and was hospitalized for further evaluation of their emergent condition. - New Patient This patient is new to me today: Yes Date on this admission: 06/19/17 - Critical Care Critical Care patient: Yes Total Critical Care Time (in minutes): 30 Critical Care Statement: The care of this patient involved high complexity decision making to prevent further life threatening deterioration of the patient 's condition and/or to evaluate & treat vital organ system(s) failure or risk of failure.
[2017-06-19 12:45] LABS: ANION GAP 10 (8-16); CALCIUM 7.7 mg/dL (8.5-10.1); CO2 21 mmol/L (21-32); CREATININE 1.1 mg/dL (0.7-1.3); GLUCOSE,RANDOM 221 mg/dL (74-106)
--- NOTE | 2017-06-19 12:59 | PN ---
Teaching Attending Note Name of Resident: Donny Jett ATTENDING PHYSICIAN STATEMENT I saw and evaluated the patient. I reviewed the resident's note and discussed the case with the resident. I agree with the resident's findings and plan as documented. SUBJECTIVE: Pt seen and examined in the ICU. c/o left hamstring pain. Has been combative with staff. OBJECTIVE: Last Vital Signs Temp Pulse Resp BP Pulse Ox 98.5 F 112 H 20 174/100 99 06/19/17 10:00 06/19/17 10:00 06/19/17 10:00 06/19/17 10:00 06/18/17 21:00 Intake & Output 06/16/17 06/17/17 06/18/17 06/19/17 23:59 23:59 23:59 23:59 Intake Total 2590 4703 1650 Output Total 2050 3550 1400 Balance 540 1153 250 Weight 210 lb 219 lb 235 lb 14.314 oz Gen: uncomfortable Heart: tachycardic, regular Lung: decreased breath sounds at the bases Abd: soft, nontender Ext: L BKA, open wound CBC, BMP 06/19/17 05:00 06/19/17 12:08 Active Medications Collagenase (Santyl -) 1 applic TP DAILY JESUS Last Admin: 06/18/17 21:50 Dose: 1 applic Diphenhydramine HCl (Benadryl Injection -) 25 mg IVPB Q8H PRN PRN Reason: NAUSEA Gabapentin (Neurontin -) 100 mg PO TID JESUS Last Admin: 06/19/17 06:35 Dose: 100 mg Hydromorphone HCl (Dilaudid Injection -) 2 mg IVPUSH Q4H PRN PRN Reason: PAIN Clindamycin Phosphate (Cleocin 600 Mg Premix Ivpb -) 50 mls @ 100 mls/hr IVPB Q6H-IV JESUS Last Admin: 06/19/17 09:35 Dose: 100 mls/hr Piperacillin Sod/Tazobactam Sod (Zosyn 3.375gm Ivpb (Pre-Docked)) 50 mls @ 100 mls/hr IVPB Q8H-IV JESUS PRN Reason: Protocol Last Admin: 06/19/17 09:35 Dose: 100 mls/hr Famotidine/Sodium Chloride (Pepcid 20 Mg Premixed Ivpb -) 50 mls @ 100 mls/hr IVPB BID [facility] Last Admin: 06/19/17 09:33 Dose: 100 mls/hr Metronidazole (Flagyl 500mg Premixed Ivpb -) 100 mls @ 100 mls/hr IVPB Q8H-IV JESUS Last Admin: 06/19/17 09:33 Dose: 100 mls/hr Dextrose/Sodium Chloride (Dextrose 5%-Normal Saline+40 Meq Kcl -) 1,000 mls @ 125 mls/hr IV ASDIR JESUS Last Admin: 06/18/17 21:54 Dose: Not Given Potassium Chloride/Dextrose/Sod Cl (D5-1/2ns+20 Meq Kcl -) 1,000 mls @ 75 mls/ hr IV ASDIR JESUS Last Admin: 06/18/17 21:53 Dose: 75 mls/hr Insulin Aspart (Novolog Vial Sliding Scale -) 1 vial SQ ACHS [facility] PRN Reason: Protocol Last Admin: 06/19/17 06:36 Dose: 3 units Insulin Detemir (Levemir Vial) 15 units SQ AM [facility] Last Admin: 06/19/17 06:36 Dose: 15 units Lidocaine (Lidoderm Patch -) 1 patch TP HS [facility] Last Admin: 06/18/17 21:52 Dose: 1 patch Metoclopramide HCl (Reglan Injection -) 10 mg IVPB Q8H PRN PRN Reason: NAUSEA AND/OR VOMITING Miscellaneous (Lidoderm Patch Removal) 1 each MC DAILY [facility] Ondansetron HCl (Zofran Injection) 4 mg IVPB Q6H PRN PRN Reason: NAUSEA Last Admin: 06/18/17 11:30 Dose: 4 mg Oxycodone HCl (Roxicodone -) 10 mg PO Q4H PRN PRN Reason: PAIN Last Admin: 06/19/17 10:16 Dose: 10 mg ASSESSMENT AND PLAN: Wound Infection/Cellulitis Sepsis Acute Kidney Injury Uncontrolled DM Noncompliance s/p L BKA - antibiotics per ID - pain control - IVF - glucose control - monitor urine output, creatinine - replete lytes - wound care - PO as tolerated - DVT prophylaxis - can monitor on floor
[2017-06-19] MEDS ORDERED: POTASSIUM CHLORIDE TABS 20 MEQ TABLET.ER (FP) PO ONE (13:45)
--- NOTE | 2017-06-19 16:59 | PN ---
Physical Exam: SUBJECTIVE: Patient seen and examined at the bedside. He states he is still having a significant amount of pain on his left leg OBJECTIVE: K 3.5, ordered K dur 40meq x 1 Vital Signs Period Temp Pulse Resp BP Sys/Monet Pulse Ox Last 24 Hr 98.5 F-99.8 F 92-113 12-24 117-174/78-100 99-99 GENERAL: The patient is awake, alert, and fully oriented HEAD: Normal with no signs of trauma. EYES: PERRL, extraocular movements intact, sclera anicteric, conjunctiva clear. No ptosis. ENT: Ears normal, nares patent, oropharynx clear without exudates, moist mucous membranes. NECK: Trachea midline, full range of motion, supple. LUNGS: Breath sounds equal, clear to auscultation bilaterally, no wheezes HEART: Regular rate and rhythm, S1, S2 without murmur, rub or gallop. ABDOMEN: Soft, nontender, nondistended, normoactive bowel sounds, no guarding, no rebound, no hepatosplenomegaly, no masses. EXT: L lateral knee wound, clean, no drainage, open healed RUE graft Laboratory Results - last 24 hr 06/17/17 06/18/17 06/18/17 07:40 17:54 18:45 WBC 31.1 H* RBC 4.35 Hgb 10.5 L D Hct 32.9 L D MCV 75.6 L MCH 24.2 L MCHC 32.1 RDW 16.5 H Plt Count 552 H MPV 7.6 Total Counted 100 Neutrophils % No Result Required. Neutrophils % (Manual) 87 H Band Neuts % (Manual) 6 Lymphocytes % No Result Required. Lymphocytes % (Manual) 3 L D Monocytes % (Manual) 3 L Eosinophils % (Manual) 1 Nucleated RBC % 1 H Other Cell Type Platelet Estimate Mod increased Platelet Comment Few large plts Sodium Potassium Chloride Carbon Dioxide Anion Gap BUN Creatinine POC Glucometer > 400 Random Glucose Lactic Acid 1.5 Calcium Phosphorus Magnesium C-Reactive Protein Total Amylase Random Vancomycin 06/19/17 06/19/17 06/19/17 05:00 05:00 05:00 WBC 23.2 H RBC 4.06 Hgb 9.9 L Hct 30.9 L MCV 76.0 L MCH 24.4 L MCHC 32.0 RDW 16.5 H Plt Count 547 H MPV 7.4 L Total Counted Neutrophils % Neutrophils % (Manual) Band Neuts % (Manual) Lymphocytes % Lymphocytes % (Manual) Monocytes % (Manual) Eosinophils % (Manual) Nucleated RBC % Other Cell Type Platelet Estimate Platelet Comment Sodium 137 Potassium 3.6 Chloride 105 Carbon Dioxide 16 L D Anion Gap 16 BUN 18 D Creatinine 1.1 POC Glucometer Random Glucose 241 H D Lactic Acid Calcium 7.5 L Phosphorus 2.2 L Magnesium 2.7 H C-Reactive Protein 13.2 H D Cancelled Total Amylase 16 L Random Vancomycin 06/19/17 06/19/17 06/19/17 05:00 12:07 12:08 WBC RBC Hgb Hct MCV MCH MCHC RDW Plt Count MPV Total Counted Neutrophils % Neutrophils % (Manual) Band Neuts % (Manual) Lymphocytes % Lymphocytes % (Manual) Monocytes % (Manual) Eosinophils % (Manual) Nucleated RBC % Other Cell Type Platelet Estimate Platelet Comment Sodium 138 Potassium 3.4 L Chloride 107 Carbon Dioxide 21 D Anion Gap 10 BUN 16 Creatinine 1.1 POC Glucometer Random Glucose 221 H Lactic Acid 0.8 1.0 Calcium 7.7 L Phosphorus Magnesium C-Reactive Protein Total Amylase Random Vancomycin 06/19/17 14:30 WBC RBC Hgb Hct MCV MCH MCHC RDW Plt Count MPV Total Counted Neutrophils % Neutrophils % (Manual) Band Neuts % (Manual) Lymphocytes % Lymphocytes % (Manual) Monocytes % (Manual) Eosinophils % (Manual) Nucleated RBC % Other Cell Type Platelet Estimate Platelet Comment Sodium Potassium Chloride Carbon Dioxide Anion Gap BUN Creatinine POC Glucometer Random Glucose Lactic Acid Calcium Phosphorus Magnesium C-Reactive Protein Total Amylase Random Vancomycin 8.954 Active Medications Generic Name Dose Route Start Last Admin Trade Name Freq PRN Reason Stop Dose Admin Acetaminophen 650 mg 06/19/17 16:48 Tylenol - PO Q4H PRN FEVER OR PAIN Collagenase 1 applic 06/18/17 17:15 06/19/17 11:00 Santyl - TP 1 applic DAILY JESUS Administration Diphenhydramine HCl 25 mg 06/18/17 19:11 Benadryl Injection - IVPB Q8H PRN NAUSEA Gabapentin 100 mg 06/17/17 14:00 06/19/17 14:39 Neurontin - PO Not Given TID JESUS Hydromorphone HCl 2 mg 06/18/17 06:53 Dilaudid Injection - IVPUSH Q4H PRN PAIN Clindamycin Phosphate 50 mls @ 100 mls/hr 06/17/17 15:00 06/19/17 16:27 Cleocin 600 Mg Premix Ivpb - IVPB Not Given Q6H-IV JESUS Piperacillin Sod/Tazobactam Sod 50 mls @ 100 mls/hr 06/17/17 18:00 06/19/17 09: 35 Zosyn 3.375gm Ivpb (Pre-Docked) IVPB 100 mls/hr Q8H-IV JESUS Administration Protocol Famotidine/Sodium Chloride 50 mls @ 100 mls/hr 06/18/17 10:00 06/19/17 09:33 Pepcid 20 Mg Premixed Ivpb - IVPB 100 mls/hr BID JESUS Administration Metronidazole 100 mls @ 100 mls/hr 06/18/17 18:30 06/19/17 09:33 Flagyl 500mg Premixed Ivpb - IVPB 100 mls/hr Q8H-IV JESUS Administration Dextrose/Sodium Chloride 1,000 mls @ 125 mls/hr 06/18/17 19:09 06/18/17 21:54 Dextrose 5%-Normal Saline+40 Meq Kcl - IV Not Given ASDIR JESUS Potassium Chloride/Dextrose/Sod Cl 1,000 mls @ 75 mls/hr 06/18/17 19:15 21:53 D5-1/2ns+20 Meq Kcl - IV 75 mls/hr ASDIR JESUS Administration Insulin Aspart 1 vial 06/18/17 21:09 06/19/17 12:00 Novolog Vial Sliding Scale - SQ 3 units ACHS JESUS Administration Protocol Insulin Detemir 15 units 06/19/17 07:00 06/19/17 06:36 Levemir Vial SQ 15 units AM JESUS Administration Lidocaine 1 patch 06/18/17 21:00 06/18/17 21:52 Lidoderm Patch - TP 1 patch HS JESUS Administration Metoclopramide HCl 10 mg 06/18/17 19:11 Reglan Injection - IVPB Q8H PRN NAUSEA AND/OR VOMITING Miscellaneous 1 each 06/19/17 10:00 06/19/17 10:00 Lidoderm Patch Removal MC Not Given DAILY JESUS Ondansetron HCl 4 mg 06/17/17 13:40 06/18/17 11:30 Zofran Injection IVPB 4 mg Q6H PRN Administration NAUSEA Oxycodone HCl 10 mg 06/18/17 18:31 06/19/17 10:16 Roxicodone - PO 10 mg Q4H PRN Administration PAIN ASSESSMENT/PLAN: Patient is a 47 year old male with a significant past medical history of diabetes mellitus, multiple soft tissue infections and left BKA. He comes to the ED on 06/17/2017 complaining of left leg pain for the past week. The pain is located behind the patient's knee and radiates up the posterior thigh. This pain is associated with fever, chills, nausea, vomiting and body aches. He is currently seeing Dr. Jennings at the wound care clinic and is undergoing hyperbaric treatment. ID: Sepsis secondary to diabetic wound A/P: WBC elevated yesterday @ 31, now trended don to 23.2 On Vancomycin, Zosyn, Clindamycin On IVF, lactic acid within normal limits Repeat CT scan of leg shows no definite interal changes in comparison to the prior CT study Monitor labs, vitals Endocrine: Hyperglycemia vs DKA A/P: Anion gap remains closed On Levemir 15 units daily Becomes symptomatic when blood sugars go below 150, goal is to keep BS around 150-200s On IVF, monitor intake and d/c ivf if able to tolerate PO UA with +3 protein Renal: KENDRICK A/P: Resolving, Cr1.8>1.1 monitor daily labs F.E.N. Fluids: continue ivf Electrolytes: monitor, Hypokalemia, Give one time Kdur 40meq x 1, continue repletion with fluids Nutrition: diabetic diet Prophylaxis: DVT: heparin BID GI: pepcid, reglan Visit type - Emergency Visit Emergency Visit: Yes ED Registration Date: 06/17/17 Care time: The patient presented to the Emergency Department on the above date and was hospitalized for further evaluation of their emergent condition. - New Patient This patient is new to me today: No - Critical Care Critical Care patient: No - Discharge Referral Referred to [facility] No
--- NOTE | 2017-06-19 18:22 | PN ---
Progress Note, Physician History of Present Illness: main issue pain in the leg patient very uncooperative pulled out ivs - Current Medication List Current Medications: Active Medications Acetaminophen (Tylenol -) 650 mg PO Q4H PRN PRN Reason: FEVER OR PAIN Collagenase (Santyl -) 1 applic TP DAILY [facility] Last Admin: 06/19/17 11:00 Dose: 1 applic Diphenhydramine HCl (Benadryl Injection -) 25 mg IVPB Q8H PRN PRN Reason: NAUSEA Gabapentin (Neurontin -) 100 mg PO TID [facility] Last Admin: 06/19/17 14:39 Dose: Not Given Heparin Sodium (Porcine) (Heparin -) 5,000 unit SQ BID JESUS Hydromorphone HCl (Dilaudid Injection -) 2 mg IVPUSH Q4H PRN PRN Reason: PAIN Clindamycin Phosphate (Cleocin 600 Mg Premix Ivpb -) 50 mls @ 100 mls/hr IVPB Q6H-IV [facility] Last Admin: 06/19/17 16:27 Dose: Not Given Piperacillin Sod/Tazobactam Sod (Zosyn 3.375gm Ivpb (Pre-Docked)) 50 mls @ 100 mls/hr IVPB Q8H-IV [facility] PRN Reason: Protocol Last Admin: 06/19/17 09:35 Dose: 100 mls/hr Famotidine/Sodium Chloride (Pepcid 20 Mg Premixed Ivpb -) 50 mls @ 100 mls/hr IVPB BID [facility] Last Admin: 06/19/17 09:33 Dose: 100 mls/hr Metronidazole (Flagyl 500mg Premixed Ivpb -) 100 mls @ 100 mls/hr IVPB Q8H-IV [facility] Last Admin: 06/19/17 09:33 Dose: 100 mls/hr Potassium Chloride/Dextrose/Sod Cl (D5-1/2ns+20 Meq Kcl -) 1,000 mls @ 75 mls/ hr IV ASDIR [facility] Last Admin: 06/18/17 21:53 Dose: 75 mls/hr Insulin Aspart (Novolog Vial Sliding Scale -) 1 vial SQ ACHS [facility] PRN Reason: Protocol Last Admin: 06/19/17 17:05 Dose: Not Given Insulin Detemir (Levemir Vial) 15 units SQ AM [facility] Last Admin: 06/19/17 06:36 Dose: 15 units Lidocaine (Lidoderm Patch -) 1 patch TP HS [facility] Last Admin: 06/18/17 21:52 Dose: 1 patch Metoclopramide HCl (Reglan Injection -) 10 mg IVPB Q8H PRN PRN Reason: NAUSEA AND/OR VOMITING Miscellaneous (Lidoderm Patch Removal) 1 each MC DAILY [facility] Last Admin: 06/19/17 10:00 Dose: Not Given Ondansetron HCl (Zofran Injection) 4 mg IVPB Q6H PRN PRN Reason: NAUSEA Last Admin: 06/18/17 11:30 Dose: 4 mg Oxycodone HCl (Roxicodone -) 10 mg PO Q4H PRN PRN Reason: PAIN Last Admin: 06/19/17 10:16 Dose: 10 mg - Objective Vital Signs: Vital Signs Temperature 98.5 F 06/19/17 10:00 Pulse Rate 100 H 06/19/17 14:00 Respiratory Rate 22 06/19/17 14:00 Blood Pressure 167/97 06/19/17 14:00 O2 Sat by Pulse Oximetry (%) 99 06/19/17 09:00 Constitutional: Yes: Anxious, Other Cardiovascular: Yes: Regular Rate and Rhythm Respiratory: Yes: Regular, CTA Bilaterally Gastrointestinal: Yes: Normal Bowel Sounds, Soft Musculoskeletal: Yes: Other Extremities: Yes: Other (as described) Neurological: Yes: Alert, Oriented Psychiatric: Yes: Alert, Oriented Labs: CBC, BMP 06/19/17 05:00 06/19/17 12:08 INR, PTT INR 1.07 (0.82-1.09) 06/17/17 00:05 Assessment/Plan Problem List - Problems (1) Sepsis Code(s): A41.9 - SEPSIS, UNSPECIFIED ORGANISM (2) Abscess and cellulitis Code(s): L03.90 - CELLULITIS, UNSPECIFIED L02.91 - CUTANEOUS ABSCESS, UNSPECIFIED (3) Cellulitis and abscess of left leg Code(s): L03.116 - CELLULITIS OF LEFT LOWER LIMB L02.416 - CUTANEOUS ABSCESS OF LEFT LOWER LIMB (4) Intractable vomiting with nausea Code(s): R11.2 - NAUSEA WITH VOMITING, UNSPECIFIED Qualifiers: Vomiting type: unspecified Qualified Code(s): R11.2 - Nausea with vomiting, unspecified; R11.2 - Nausea with vomiting, unspecified (5) Noncompliance with diabetes treatment Code(s): Z91.19 - PATIENT'S NONCOMPLIANCE W OTH MEDICAL TREATMENT AND REGIMEN (6) Diabetic ulcer of lower extremity Code(s): E11.622 - TYPE 2 DIABETES MELLITUS WITH OTHER SKIN ULCER L97.909 - NON-PRS CHRONIC ULC UNSP PRT OF UNSP LOW LEG W UNSP SEVERITY lactic acidosis leukocytosis patient has become very uncooperative refusing meds vanco trough noted continue abx close watch on the leg wbc trending down hydration keep sugar above 110 at least res as per icu will re give vanco dose tomorrow cc time 40 min
[2017-06-19] MEDS: ACETAMINOPHEN 325 MG TABLET (FP) PO PRN (18:28)
[2017-06-19] MEDS: D5-1/2NS+20 MEQ KCL - 1,000 ML IV SCH (18:29)
[2017-06-19] MEDS ORDERED: PIPERACILLIN/TAZOBACTAM 3.375 GM VIAL IVPB ONE (18:52)
[2017-06-19] MEDS ORDERED: DEXTROSE 5%-WATER - 50 ML IVPB ONE (18:52)
[2017-06-19] MEDS: HEPARIN NA (PORCINE) 5,000 UNITS/ML 1ML VIAL SQ SCH (22:51)
[2017-06-19] MEDS: LIDOCAINE 5% TOPICAL PATCH TP SCH (23:02)
[2017-06-20] MEDS ORDERED: PIPERACILLIN/TAZOBACTAM 3.375 GM VIAL IVPB ONE ×3 (01:25→17:13)
[2017-06-20] MEDS ORDERED: DEXTROSE 5%-WATER - 50 ML IVPB ONE ×3 (01:26→17:13)
[2017-06-20] MEDS: oxyCODONE HCL 5 MG TABLET PO PRN ×2 (01:48→06:19)
[2017-06-20] MEDS: ACETAMINOPHEN 325 MG TABLET (FP) PO PRN ×2 (01:49→06:19)
[2017-06-20] MEDS: METRONIDAZOLE 500 MG PREMIXED 100 ML IVPB SCH ×3 (01:49→20:45)
[2017-06-20] MEDS: PIPERACILLIN/TAZOB 3.375 GM 3.375 GM in DEXTROSE 5%-WATER - 50 ML IVPB SCH ×3 (02:54→17:23)
[2017-06-20] MEDS: CLINDAMYCIN 600MG PREMIX IVPB 50 ML IVPB SCH ×4 (03:34→22:01)
[2017-06-20] MEDS: INSULIN SLIDING SCALE (NOVOLOG) 1 VIAL SQ SCH ×4 (06:14→21:14)
[2017-06-20] MEDS: GABAPENTIN 100 MG CAPSULE (FP) PO SCH ×3 (06:14→21:13)
[2017-06-20] MEDS: INSULIN DETEMIR 100 UNITS/ML MDV SQ SCH (06:15)
[2017-06-20 07:29] LABS: BASOPHIL 0.2 % (0-2.0); EOSINOPHIL 1.4 % (0-4.5); MCH 24.1 pg (25.7-33.7); MCHC 31.4 g/dl (32.0-35.9); MEAN CELL VOLUME 76.7 fl (80-96); MEAN PLT VOLUME 7.2 fl (7.5-11.1); NEUTROPHILS 90.1 % (42.8-82.8); PLATELET COUNT 478 K/MM3 (134-434); RDW 16.7 % (11.9-15.9); WHITE BLOOD COUNT 20.3 K/mm3 (4.0-10.0)
[2017-06-20 07:49] LABS: ALBUMIN 1.1 g/dl (3.4-5.0); ANION GAP 19 (8-16); BILIRUBIN,TOTAL 0.4 mg/dL (0.2-1.0); CALCIUM 7.3 mg/dL (8.5-10.1); CO2 13 mmol/L (21-32); CREATININE 1.1 mg/dL (0.7-1.3); GLUCOSE,RANDOM 269 mg/dL (74-106); SGOT/AST 15 U/L (15-37); SGPT/ALT 9 U/L (12-78); TOT PROT 4.6 g/dl (6.4-8.2)
[2017-06-20 07:50] LABS: ALK PHOS 681 U/L (45-117)
[2017-06-20] MEDS ORDERED: POTASSIUM CHLORIDE TABS 20 MEQ TABLET.ER (FP) PO ONE ×3 (07:57→14:15)
[2017-06-20] MEDS ORDERED: LISINOPRIL 20 MG TABLET (FP) PO ONE (09:10)
[2017-06-20] MEDS: HEPARIN NA (PORCINE) 5,000 UNITS/ML 1ML VIAL SQ SCH ×2 (09:37→21:19)
[2017-06-20] MEDS ORDERED: amLODIPine BESYLATE 5 MG TABLET (FP) PO SCH (10:00)
[2017-06-20] MEDS: LIDOCAINE PATCH REMOVAL MC SCH (11:17)
[2017-06-20] MEDS: COLLAGENASE CLOSTRIDIUM HIST. 30 GRAMS TUBE TP SCH ×2 (11:18→21:20)
--- NOTE | 2017-06-20 11:20 | PN ---
Physical Exam: SUBJECTIVE: Patient seen and examined, feels calmer but verbalizes anxiety. OBJECTIVE: Chloride 13 Anion coughlin 19 ABG ordered Lisinopril 20mg daily added for elevated BP Vital Signs Period Temp Pulse Resp BP Sys/Monet Pulse Ox Last 24 Hr 97.9 F-99.1 F 99-115 20-22 124-167/72-100 GENERAL: The patient is awake, alert, and fully oriented HEAD: Normal with no signs of trauma. EYES: PERRL, extraocular movements intact, sclera anicteric, conjunctiva clear. No ptosis. ENT: Ears normal, nares patent, oropharynx clear without exudates, moist mucous membranes. NECK: Trachea midline, full range of motion, supple. LUNGS: Breath sounds equal, clear to auscultation bilaterally, no wheezes HEART: Regular rate and rhythm, S1, S2 without murmur, rub or gallop. ABDOMEN: Soft, nontender, nondistended, normoactive bowel sounds, no guarding, no rebound, no hepatosplenomegaly, no masses. EXT: L lateral knee wound, clean, no drainage, open healed RUE graft Laboratory Results - last 24 hr 06/19/17 06/19/17 06/19/17 12:07 12:08 14:30 WBC RBC Hgb Hct MCV MCH MCHC RDW Plt Count MPV Neutrophils % Lymphocytes % Monocytes % Eosinophils % Basophils % Sodium 138 Potassium 3.4 L Chloride 107 Carbon Dioxide 21 D Anion Gap 10 BUN 16 Creatinine 1.1 Creat Clearance w eGFR POC Glucometer Random Glucose 221 H Lactic Acid 1.0 Calcium 7.7 L Total Bilirubin AST ALT Alkaline Phosphatase Total Protein Albumin Random Vancomycin 8.954 06/19/17 06/20/17 06/20/17 20:56 06:00 06:00 WBC 20.3 H RBC 3.75 L Hgb 9.0 L Hct 28.8 L MCV 76.7 L MCH 24.1 L MCHC 31.4 L RDW 16.7 H Plt Count 478 H MPV 7.2 L Neutrophils % 90.1 H Lymphocytes % 5.1 L D Monocytes % 3.2 L Eosinophils % 1.4 Basophils % 0.2 Sodium 136 Potassium 3.4 L Chloride 104 Carbon Dioxide 13 L D Anion Gap 19 H BUN 12 D Creatinine 1.1 Creat Clearance w eGFR > 60 POC Glucometer 232 Random Glucose 269 H D Lactic Acid Calcium 7.3 L Total Bilirubin 0.4 AST 15 D ALT 9 L Alkaline Phosphatase 681 H Total Protein 4.6 L Albumin 1.1 L Random Vancomycin 06/20/17 06:12 WBC RBC Hgb Hct MCV MCH MCHC RDW Plt Count MPV Neutrophils % Lymphocytes % Monocytes % Eosinophils % Basophils % Sodium Potassium Chloride Carbon Dioxide Anion Gap BUN Creatinine Creat Clearance w eGFR POC Glucometer 282 Random Glucose Lactic Acid Calcium Total Bilirubin AST ALT Alkaline Phosphatase Total Protein Albumin Random Vancomycin Active Medications Generic Name Dose Route Start Last Admin Trade Name Freq PRN Reason Stop Dose Admin Acetaminophen 650 mg 06/19/17 16:48 06/20/17 06:19 Tylenol - PO 650 mg Q4H PRN Administration FEVER OR PAIN Collagenase 1 applic 06/18/17 17:15 06/19/17 11:00 Santyl - TP 1 applic DAILY JESUS Administration Diphenhydramine HCl 25 mg 06/18/17 19:11 06/19/17 20:54 Benadryl Injection - IVPB 25 mg Q8H PRN Administration NAUSEA Gabapentin 100 mg 06/17/17 14:00 06/20/17 06:14 Neurontin - PO 100 mg TID JESUS Administration Heparin Sodium (Porcine) 5,000 unit 06/19/17 22:00 06/20/17 09:37 Heparin - SQ 5,000 unit BID JESUS Administration Hydromorphone HCl 2 mg 06/18/17 06:53 Dilaudid Injection - IVPUSH Q4H PRN PAIN Clindamycin Phosphate 50 mls @ 100 mls/hr 06/17/17 15:00 06/20/17 09:40 Cleocin 600 Mg Premix Ivpb - IVPB 100 mls/hr Q6H-IV JESUS Administration Famotidine/Sodium Chloride 50 mls @ 100 mls/hr 06/18/17 10:00 06/19/17 22:43 Pepcid 20 Mg Premixed Ivpb - IVPB 100 mls/hr BID JESUS Administration Metronidazole 100 mls @ 100 mls/hr 06/18/17 18:30 06/20/17 10:38 Flagyl 500mg Premixed Ivpb - IVPB 100 mls/hr Q8H-IV JESUS Administration Potassium Chloride/Dextrose/Sod Cl 1,000 mls @ 75 mls/hr 06/18/17 19:15 18:29 D5-1/2ns+20 Meq Kcl - IV 75 mls/hr ASDIR JESUS Administration Piperacillin Sod/Tazobactam 50 mls @ 100 mls/hr 06/19/17 18:42 06/20/17 02:54 Sod 3.375 gm/ Dextrose IVPB 100 mls/hr Q8H-IV JESUS Administration Protocol Insulin Aspart 1 vial 06/18/17 21:09 06/20/17 06:14 Novolog Vial Sliding Scale - SQ 3 units ACHS JESUS Administration Protocol Insulin Detemir 15 units 06/19/17 07:00 06/20/17 06:15 Levemir Vial SQ 15 units AM JESUS Administration Lidocaine 1 patch 06/18/17 21:00 06/19/17 23:02 Lidoderm Patch - TP 1 patch HS JESUS Administration Lisinopril 20 mg 06/21/17 10:00 Prinivil PO DAILY JESUS Metoclopramide HCl 10 mg 06/18/17 19:11 Reglan Injection - IVPB Q8H PRN NAUSEA AND/OR VOMITING Miscellaneous 1 each 06/19/17 10:00 06/19/17 10:00 Lidoderm Patch Removal MC Not Given DAILY JESUS Ondansetron HCl 4 mg 06/17/17 13:40 06/18/17 11:30 Zofran Injection IVPB 4 mg Q6H PRN Administration NAUSEA Oxycodone HCl 10 mg 06/18/17 18:31 06/20/17 06:19 Roxicodone - PO 10 mg Q4H PRN Administration PAIN ASSESSMENT/PLAN: Patient is a 47 year old male with a significant past medical history of diabetes mellitus, multiple soft tissue infections and left BKA. He comes to the ED on 06/17/2017 complaining of left leg pain for the past week. The pain is located behind the patient's knee and radiates up the posterior thigh. This pain is associated with fever, chills, nausea, vomiting and body aches. He is currently seeing Dr. Jennings at the wound care clinic and is undergoing hyperbaric treatment. ID: Sepsis secondary to diabetic wound A/P: WBC now trended down to 20.3 On Vancomycin, Zosyn, Clindamycin On IVF, lactic acid within normal limits Repeat CT scan of leg shows no definite interval changes in comparison to the prior CT study Monitor labs, vitals Endocrine: Hyperglycemia vs DKA A/P: Anion gap 19, chloride 13, repeat labs shows closed anion gap with chl levels at 19 On Levemir 15 units daily Becomes symptomatic when blood sugars go below 150, goal is to keep BS around 150-200s On IVF, monitor intake and d/c ivf if able to tolerate PO UA with +3 protein Renal: KENDRICK A/P: Resolving, Cr1.8>1.1 monitor daily labs F.E.N. Fluids: continue ivf Electrolytes: monitor, Hypokalemia, Replete with Kdur 40meq, repletion with fluids Nutrition: diabetic diet Prophylaxis: DVT: heparin BID GI: pepcid, reglan Disposition: Full code. Visit type - Emergency Visit Emergency Visit: Yes ED Registration Date: 06/17/17 Care time: The patient presented to the Emergency Department on the above date and was hospitalized for further evaluation of their emergent condition. - New Patient This patient is new to me today: No - Critical Care Critical Care patient: Yes Total Critical Care Time (in minutes): 60 Critical Care Statement: The care of this patient involved high complexity decision making to prevent further life threatening deterioration of the patient 's condition and/or to evaluate & treat vital organ system(s) failure or risk of failure. - Discharge Referral Referred to [facility] Med P.C.: No
--- NOTE | 2017-06-20 11:58 | PN ---
Progress Note (short form) - Note Progress Note: No acute events overnight. No CP or SOB. Feels anxious. Intake & Output 06/17/17 06/18/17 06/19/17 06/20/17 23:59 23:59 23:59 23:59 Intake Total 2590 4703 4120 850 Output Total 2050 3550 1400 1500 Balance 540 1153 2720 -650 Weight 219 lb 235 lb 14.314 oz Last Vital Signs Temp Pulse Resp BP Pulse Ox 97.9 F 101 H 20 162/100 97 06/20/17 08:00 06/20/17 08:00 06/20/17 08:00 06/20/17 08:00 06/20/17 09:00 Active Medications Acetaminophen (Tylenol -) 650 mg PO Q4H PRN PRN Reason: FEVER OR PAIN Last Admin: 06/20/17 06:19 Dose: 650 mg Collagenase (Santyl -) 1 applic TP DAILY [facility] Last Admin: 06/20/17 11:18 Dose: 1 applic Diphenhydramine HCl (Benadryl Injection -) 25 mg IVPB Q8H PRN PRN Reason: NAUSEA Last Admin: 06/19/17 20:54 Dose: 25 mg Gabapentin (Neurontin -) 100 mg PO TID JESUS Last Admin: 06/20/17 06:14 Dose: 100 mg Heparin Sodium (Porcine) (Heparin -) 5,000 unit SQ BID JESUS Last Admin: 06/20/17 09:37 Dose: 5,000 unit Hydromorphone HCl (Dilaudid Injection -) 2 mg IVPUSH Q4H PRN PRN Reason: PAIN Clindamycin Phosphate (Cleocin 600 Mg Premix Ivpb -) 50 mls @ 100 mls/hr IVPB Q6H-IV JESUS Last Admin: 06/20/17 09:40 Dose: 100 mls/hr Famotidine/Sodium Chloride (Pepcid 20 Mg Premixed Ivpb -) 50 mls @ 100 mls/hr IVPB BID JESUS Last Admin: 06/19/17 22:43 Dose: 100 mls/hr Metronidazole (Flagyl 500mg Premixed Ivpb -) 100 mls @ 100 mls/hr IVPB Q8H-IV JESUS Last Admin: 06/20/17 10:38 Dose: 100 mls/hr Potassium Chloride/Dextrose/Sod Cl (D5-1/2ns+20 Meq Kcl -) 1,000 mls @ 75 mls/ hr IV ASDIR [facility] Last Admin: 06/19/17 18:29 Dose: 75 mls/hr Piperacillin Sod/Tazobactam (Sod 3.375 gm/ Dextrose) 50 mls @ 100 mls/hr IVPB Q8H-IV JESUS PRN Reason: Protocol Last Admin: 06/20/17 02:54 Dose: 100 mls/hr Insulin Aspart (Novolog Vial Sliding Scale -) 1 vial SQ ACHS JESUS PRN Reason: Protocol Last Admin: 06/20/17 11:27 Dose: Not Given Insulin Detemir (Levemir Vial) 15 units SQ AM [facility] Last Admin: 06/20/17 06:15 Dose: 15 units Lidocaine (Lidoderm Patch -) 1 patch TP HS [facility] Last Admin: 06/19/17 23:02 Dose: 1 patch Lisinopril (Prinivil) 20 mg PO DAILY [facility] Metoclopramide HCl (Reglan Injection -) 10 mg IVPB Q8H PRN PRN Reason: NAUSEA AND/OR VOMITING Miscellaneous (Lidoderm Patch Removal) 1 each MC DAILY [facility] Last Admin: 06/20/17 11:17 Dose: 1 each Ondansetron HCl (Zofran Injection) 4 mg IVPB Q6H PRN PRN Reason: NAUSEA Last Admin: 06/18/17 11:30 Dose: 4 mg Oxycodone HCl (Roxicodone -) 10 mg PO Q4H PRN PRN Reason: PAIN Last Admin: 06/20/17 06:19 Dose: 10 mg Gen: NAD Heart: S1S2, regular Lung: decreased breath sounds at the bases Abd: soft, nontender Ext: L BKA, open wound Laboratory Results - last 24 hr 06/19/17 06/19/17 06/19/17 12:07 12:08 14:30 WBC RBC Hgb Hct MCV MCH MCHC RDW Plt Count MPV Neutrophils % Lymphocytes % Monocytes % Eosinophils % Basophils % Sodium 138 Potassium 3.4 L Chloride 107 Carbon Dioxide 21 D Anion Gap 10 BUN 16 Creatinine 1.1 Creat Clearance w eGFR POC Glucometer Random Glucose 221 H Lactic Acid 1.0 Calcium 7.7 L Total Bilirubin AST ALT Alkaline Phosphatase Total Protein Albumin Random Vancomycin 8.954 06/19/17 06/20/1717 20:56 06:00 06:00 WBC 20.3 H RBC 3.75 L Hgb 9.0 L Hct 28.8 L MCV 76.7 L MCH 24.1 L MCHC 31.4 L RDW 16.7 H Plt Count 478 H MPV 7.2 L Neutrophils % 90.1 H Lymphocytes % 5.1 L D Monocytes % 3.2 L Eosinophils % 1.4 Basophils % 0.2 Sodium 136 Potassium 3.4 L Chloride 104 Carbon Dioxide 13 L D Anion Gap 19 H BUN 12 D Creatinine 1.1 Creat Clearance w eGFR > 60 POC Glucometer 232 Random Glucose 269 H D Lactic Acid Calcium 7.3 L Total Bilirubin 0.4 AST 15 D ALT 9 L Alkaline Phosphatase 681 H Total Protein 4.6 L Albumin 1.1 L Random Vancomycin 06/20/17 06/20/17 06:12 11:19 WBC RBC Hgb Hct MCV MCH MCHC RDW Plt Count MPV Neutrophils % Lymphocytes % Monocytes % Eosinophils % Basophils % Sodium Potassium Chloride Carbon Dioxide Anion Gap BUN Creatinine Creat Clearance w eGFR POC Glucometer 282 256 Random Glucose Lactic Acid Calcium Total Bilirubin AST ALT Alkaline Phosphatase Total Protein Albumin Random Vancomycin ASSESSMENT AND PLAN: Wound Infection/Cellulitis Sepsis Acute Kidney Injury Uncontrolled DM Noncompliance s/p L BKA - antibiotics per ID - pain control - IVF - glucose control - monitor urine output, creatinine - replete lytes - wound care - PO as tolerated - DVT prophylaxis Dr Iverson
[2017-06-20] MEDS ORDERED: D5-1/2NS+40 MEQ KCL - 1,000 ML IV SCH (12:45)
[2017-06-20] MEDS ORDERED: INSULIN REGULAR 100 UNITS in SODIUM CHLORIDE 99 ML IVPB SCH (12:45)
[2017-06-20] MEDS: HYDROmorphone HCL CARPU-JECT 2 MG/1 ML DISP.SYRIN IVPUSH PRN ×3 (12:52→21:13)
[2017-06-20] MEDS ORDERED: ASPIRIN 325 MG TABLET PO ONE ×2 (12:58→16:00)
[2017-06-20] MEDS ORDERED: INSULIN REGULAR HUMAN 100 UNITS/ML *VIAL ONE (12:59)
--- NOTE | 2017-06-20 12:59 | PN ---
Physical Exam: SUBJECTIVE: 47 yo M with uncontrolled DM II, right elbow nec fasc, left leg below the knee amputation, h/o MRSA of left buttock,chronic wound of left leg receiving hyperbaric oxygen and multiple soft tissues infections, who initially presented to the ED with worsening posterior LLE pain of one month and admitted to the ICU (06/17-06/19) for Sepsis, and metabolic disarray. Patient returns to ICU from med/surg unit following elevated anion gap (19) this AM in setting of DMII, and hyperglycemia ( 269-247). He denies complaints. Denies chest pain, SOB, lightheadedness, dysuria, weakness, dysuria, urinary complaints, abdominal pain, constipation/diarrhea. Anion gap resolved ( 11) this afternoon prior to administration of Insulin gtt D5 NS. Patient hemodynamically stable. OBJECTIVE: Vital Signs Period Temp Pulse Resp BP Sys/Monet Pulse Ox Last 24 Hr 97.9 F-99.1 F 99-115 20-22 124-167/72-100 97 GENERAL: The patient is awake, alert, and fully oriented. He is slightly agitated on encounter. HEAD: Normal with no signs of trauma. EYES: PERRL, extraocular movements intact, sclera anicteric, conjunctiva clear. No ptosis. LUNGS: Breath sounds equal, clear to auscultation bilaterally, no wheezes, no crackles, no accessory muscle use. HEART: Regular rate and rhythm, S1, S2 without murmur, rub or gallop. ABDOMEN: Soft, nontender, nondistended, normoactive bowel sounds, no guarding, no rebound, no hepatosplenomegaly, no masses. EXTREMITIES: Left leg amputation below knee. gauze in place on left lateral leg. Wound is ulcerated, c/d/i. No evidence of erythema, fluctuance, crepitus, or warmth. 2+ pulses, warm, well-perfused, no edema. PSYCH: Normal mood, normal affect. SKIN: Warm, dry, normal turgor, no rashes or lesions noted Laboratory Results - last 24 hr 06/19/17 06/19/17 06/20/17 14:30 20:56 06:00 WBC 20.3 H RBC 3.75 L Hgb 9.0 L Hct 28.8 L MCV 76.7 L MCH 24.1 L MCHC 31.4 L RDW 16.7 H Plt Count 478 H MPV 7.2 L Neutrophils % 90.1 H Lymphocytes % 5.1 L D Monocytes % 3.2 L Eosinophils % 1.4 Basophils % 0.2 Sodium Potassium Chloride Carbon Dioxide Anion Gap BUN Creatinine Creat Clearance w eGFR POC Glucometer 232 Random Glucose Calcium Total Bilirubin AST ALT Alkaline Phosphatase Total Protein Albumin Random Vancomycin 8.954 06/20/17 06/20/17 06/20/17 06:00 06:12 11:19 WBC RBC Hgb Hct MCV MCH MCHC RDW Plt Count MPV Neutrophils % Lymphocytes % Monocytes % Eosinophils % Basophils % Sodium 136 Potassium 3.4 L Chloride 104 Carbon Dioxide 13 L D Anion Gap 19 H BUN 12 D Creatinine 1.1 Creat Clearance w eGFR > 60 POC Glucometer 282 256 Random Glucose 269 H D Calcium 7.3 L Total Bilirubin 0.4 AST 15 D ALT 9 L Alkaline Phosphatase 681 H Total Protein 4.6 L Albumin 1.1 L Random Vancomycin Active Medications Generic Name Dose Route Start Last Admin Trade Name Freq PRN Reason Stop Dose Admin Acetaminophen 650 mg 06/19/17 16:48 06/20/17 06:19 Tylenol - PO 650 mg Q4H PRN Administration FEVER OR PAIN Aspirin 325 mg 06/20/17 12:58 Asa - PO 06/20/17 12:59 ONCE ONE Collagenase 1 applic 06/18/17 17:15 06/20/17 11:18 Santyl - TP 1 applic DAILY JESUS Administration Diphenhydramine HCl 25 mg 06/18/17 19:11 06/19/17 20:54 Benadryl Injection - IVPB 25 mg Q8H PRN Administration NAUSEA Gabapentin 100 mg 06/17/17 14:00 06/20/17 06:14 Neurontin - PO 100 mg TID JESUS Administration Heparin Sodium (Porcine) 5,000 unit 06/19/17 22:00 06/20/17 09:37 Heparin - SQ 5,000 unit BID JESUS Administration Hydromorphone HCl 2 mg 06/18/17 06:53 06/20/17 12:52 Dilaudid Injection - IVPUSH 2 mg Q4H PRN Administration PAIN Clindamycin Phosphate 50 mls @ 100 mls/hr 06/17/17 15:00 06/20/17 09:40 Cleocin 600 Mg Premix Ivpb - IVPB 100 mls/hr Q6H-IV JESUS Administration Famotidine/Sodium Chloride 50 mls @ 100 mls/hr 06/18/17 10:00 06/19/17 22:43 Pepcid 20 Mg Premixed Ivpb - IVPB 100 mls/hr BID JESUS Administration Metronidazole 100 mls @ 100 mls/hr 06/18/17 18:30 06/20/17 10:38 Flagyl 500mg Premixed Ivpb - IVPB 100 mls/hr Q8H-IV JESUS Administration Potassium Chloride/Dextrose/Sod Cl 1,000 mls @ 75 mls/hr 06/18/17 19:15 18:29 D5-1/2ns+20 Meq Kcl - IV 75 mls/hr ASDIR JESUS Administration Piperacillin Sod/Tazobactam 50 mls @ 100 mls/hr 06/19/17 18:42 06/20/17 12:18 Sod 3.375 gm/ Dextrose IVPB 100 mls/hr Q8H-IV JESUS Administration Protocol Insulin Human Regular 100 100 mls @ 10.7 mls/hr 06/20/17 12:45 units/ Sodium Chloride IVPB TITR JESUS Protocol 0.1 UNITS/KG/HR Dextrose/Sodium Chloride 1,000 mls @ 150 mls/hr 06/20/17 12:45 D5-1/2ns+40 Meq Kcl - IV ASDIR JESUS Insulin Aspart 1 vial 06/18/17 21:09 06/20/17 11:27 Novolog Vial Sliding Scale - SQ Not Given ACHS JSEUS Protocol Insulin Detemir 15 units 06/19/17 07:00 06/20/17 06:15 Levemir Vial SQ 15 units AM JESUS Administration Lidocaine 1 patch 06/18/17 21:00 06/19/17 23:02 Lidoderm Patch - TP 1 patch HS JESUS Administration Lisinopril 20 mg 06/21/17 10:00 Prinivil PO DAILY JESUS Metoclopramide HCl 10 mg 06/18/17 19:11 Reglan Injection - IVPB Q8H PRN NAUSEA AND/OR VOMITING Miscellaneous 1 each 06/19/17 10:00 06/20/17 11:17 Lidoderm Patch Removal MC 1 each DAILY JESUS Administration Ondansetron HCl 4 mg 06/17/17 13:40 06/18/17 11:30 Zofran Injection IVPB 4 mg Q6H PRN Administration NAUSEA Oxycodone HCl 10 mg 06/18/17 18:31 06/20/17 06:19 Roxicodone - PO 10 mg Q4H PRN Administration PAIN ASSESSMENT/PLAN: 47 yo M with uncontrolled DM II, right elbow nec fasc, left leg below the knee amputation, h/o MRSA of left buttock,chronic wound of left leg receiving hyperbaric oxygen and multiple soft tissues infections, who initially presented to the ED with worsening posterior LLE pain of one month and admitted to the ICU (06/17-06/19) for Sepsis, and metabolic disarray, who returns to ICU from med/surg unit with elevated anion gap. Infectious Disease: Sepsis: Possible cellulitis left leg. - Left lower leg ulceration with h/o chronic treatment and hyperbaric oxygen therapy. - LLE CT (06/17): Sub Q fluid and fat stranding. Correlate clinically with cellulits. Confluent fluid/fat in posterior left thigh surrounding sciatic nerve. Absent sub Q gas. - Lactic acid 1.5 --> 0.8 Plan: - Continue flagyl, zosyn, clindamycin - 1 L NS bolus. . - CBC QD - CT LLE (06/19) ~ unremarkable - Cont pain control fentanyl, oxycodone, and aspirin. Endocrine: - Hyperglycemia vs DKA - Anion gap 19 (06/20) - Glucose ~269-->247 Plan: - Levemir 15units Q AM - Novolog Sliding Scale - Keep sugars ~150-200 to avoid symptoms - Recheck lactic acid and BMP. - Resume insulin gtt if anion gap non resolved - Attempt NS fluid resuscitation before ICU transfer. Renal: KENDRICK - Resolving - Cr1.8-->1.1 - CMP QD Hypokalemia - K+ 3.4 (06/20)-->3.2 Plan: - Repletion with K + 40 MeQ PO Hyponatremia - Resolved FEN: IV fluids, Lytes PRN, DM diet PPx: Heparin 5000 U Dispo: Med/Surg Transfer Visit type - Emergency Visit Emergency Visit: Yes ED Registration Date: 06/17/17 Care time: The patient presented to the Emergency Department on the above date and was hospitalized for further evaluation of their emergent condition. - New Patient This patient is new to me today: No - Critical Care Critical Care patient: Yes Total Critical Care Time (in minutes): 35 Critical Care Statement: The care of this patient involved high complexity decision making to prevent further life threatening deterioration of the patient 's condition and/or to evaluate & treat vital organ system(s) failure or risk of failure.
[2017-06-20] MEDS ORDERED: oxyCODONE HCL 5 MG TABLET PO PRN (13:04)
[2017-06-20] MEDS ORDERED: LIDOCAINE PATCH REMOVAL MC SCH ×3 (13:04→22:00)
[2017-06-20] MEDS ORDERED: ONDANSETRON 4 MG/2 ML VIAL IVPB PRN (13:04)
[2017-06-20] MEDS ORDERED: D5-1/2NS+20 MEQ KCL - 1,000 ML IV SCH ×2 (13:04→14:04)
[2017-06-20] MEDS ORDERED: HYDROmorphone HCL CARPU-JECT 2 MG/1 ML DISP.SYRIN IVPUSH PRN (13:04)
[2017-06-20] MEDS ORDERED: METOCLOPRAMIDE HCL INJECTION 10 MG/2 ML VIAL IVPB PRN (13:04)
[2017-06-20] MEDS ORDERED: ACETAMINOPHEN 325 MG TABLET (FP) PO PRN (13:04)
[2017-06-20 13:16] LABS: ALBUMIN 1.3 g/dl (3.4-5.0); ALK PHOS 734 U/L (45-117); ANION GAP 11 (8-16); BILIRUBIN,TOTAL 0.4 mg/dL (0.2-1.0); CALCIUM 7.5 mg/dL (8.5-10.1); CO2 19 mmol/L (21-32); CREATININE 1.1 mg/dL (0.7-1.3); GLUCOSE,RANDOM 247 mg/dL (74-106); SGOT/AST 12 U/L (15-37); SGPT/ALT 10 U/L (12-78)
[2017-06-20] MEDS ORDERED: GABAPENTIN 100 MG CAPSULE (FP) PO SCH (14:00)
[2017-06-20] MEDS: FAMOTIDINE 20 MG/50 ML IVPB 50 ML IVPB SCH ×2 (14:11→22:24)
--- NOTE | 2017-06-20 14:17 | PN ---
Progress Note, Physician History of Present Illness: still with pain in leg remaining stable no new issues plan to d/c insulin drip - Current Medication List Current Medications: Active Medications Acetaminophen (Tylenol -) 650 mg PO Q4H PRN PRN Reason: FEVER OR PAIN Aspirin (Asa -) 325 mg PO ONCE ONE Stop: 06/20/17 14:05 Collagenase (Santyl -) 1 applic TP DAILY JESUS Diphenhydramine HCl (Benadryl Injection -) 25 mg IVPB Q8H PRN PRN Reason: NAUSEA Gabapentin (Neurontin -) 100 mg PO TID JESUS Heparin Sodium (Porcine) (Heparin -) 5,000 unit SQ BID JESUS Hydromorphone HCl (Dilaudid Injection -) 2 mg IVPUSH Q4H PRN PRN Reason: PAIN Clindamycin Phosphate (Cleocin 600 Mg Premix Ivpb -) 50 mls @ 100 mls/hr IVPB Q6H-IV JESUS Metronidazole (Flagyl 500mg Premixed Ivpb -) 100 mls @ 100 mls/hr IVPB Q8H-IV JESUS Famotidine/Sodium Chloride (Pepcid 20 Mg Premixed Ivpb -) 50 mls @ 100 mls/hr IVPB BID JESUS Piperacillin Sod/Tazobactam (Sod 3.375 gm/ Dextrose) 50 mls @ 100 mls/hr IVPB Q8H-IV JESUS PRN Reason: Protocol Potassium Chloride/Dextrose/Sod Cl (D5-1/2ns+20 Meq Kcl -) 1,000 mls @ 75 mls/ hr IV ASDIR JESUS Insulin Aspart (Novolog Vial Sliding Scale -) 1 vial SQ ACHS JESUS PRN Reason: Protocol Insulin Detemir (Levemir Vial) 15 units SQ AM JESUS Lidocaine (Lidoderm Patch -) 1 patch TP HS [facility] Lisinopril (Prinivil) 20 mg PO DAILY JESUS Metoclopramide HCl (Reglan Injection -) 10 mg IVPB Q8H PRN PRN Reason: NAUSEA AND/OR VOMITING Miscellaneous (Lidoderm Patch Removal) 1 each MC DAILY@2200 [facility] Miscellaneous (Lidoderm Patch Removal) 1 each MC DAILY JESUS Miscellaneous (Lidoderm Patch Removal) 1 each MC DAILY@2200 [facility] Ondansetron HCl (Zofran Injection) 4 mg IVPB Q6H PRN PRN Reason: NAUSEA Oxycodone HCl (Roxicodone -) 10 mg PO Q4H PRN PRN Reason: PAIN Potassium Chloride (K-Dur -) 40 meq PO ONCE ONE Stop: 06/20/17 14:16 - Objective Vital Signs: Vital Signs Temperature 97.9 F 06/20/17 08:00 Pulse Rate 101 H 06/20/17 08:00 Respiratory Rate 20 06/20/17 08:00 Blood Pressure 162/100 06/20/17 08:00 O2 Sat by Pulse Oximetry (%) 97 06/20/17 09:00 Constitutional: Yes: No Distress, Calm Cardiovascular: Yes: Regular Rate and Rhythm Respiratory: Yes: Regular, CTA Bilaterally Gastrointestinal: Yes: Normal Bowel Sounds, Soft Extremities: Yes: Other (left bka wiht open wound) Wound/Incision: Yes: Open to air Neurological: Yes: Alert, Oriented Labs: CBC, BMP 06/20/17 06:00 06/20/17 12:40 INR, PTT INR 1.07 (0.82-1.09) 06/17/17 00:05 Assessment/Plan Problem List - Problems (1) Sepsis Code(s): A41.9 - SEPSIS, UNSPECIFIED ORGANISM (2) Abscess and cellulitis Code(s): L03.90 - CELLULITIS, UNSPECIFIED L02.91 - CUTANEOUS ABSCESS, UNSPECIFIED (3) Cellulitis and abscess of left leg Code(s): L03.116 - CELLULITIS OF LEFT LOWER LIMB L02.416 - CUTANEOUS ABSCESS OF LEFT LOWER LIMB (4) Intractable vomiting with nausea Code(s): R11.2 - NAUSEA WITH VOMITING, UNSPECIFIED Qualifiers: Vomiting type: unspecified Qualified Code(s): R11.2 - Nausea with vomiting, unspecified; R11.2 - Nausea with vomiting, unspecified (5) Noncompliance with diabetes treatment Code(s): Z91.19 - PATIENT'S NONCOMPLIANCE W OTH MEDICAL TREATMENT AND REGIMEN (6) Diabetic ulcer of lower extremity Code(s): E11.622 - TYPE 2 DIABETES MELLITUS WITH OTHER SKIN ULCER L97.909 - NON-PRS CHRONIC ULC UNSP PRT OF UNSP LOW LEG W UNSP SEVERITY lactic acidosis leukocytosis continue current gmmt will give one dose of vanco recheck vanco level tomorrow monitor sugars rest continue as per icu close monitoring wbc cc time 40 min
[2017-06-20] MEDS ORDERED: CLINDAMYCIN 600MG PREMIX IVPB 50 ML IVPB SCH (15:00)
[2017-06-20] MEDS ORDERED: VANCOMYCIN 750 MG in DEXTROSE 5%-WATER - 250 ML IVPB ONE (16:00)
[2017-06-20] MEDS ORDERED: INSULIN SLIDING SCALE (NOVOLOG) 1 VIAL SQ SCH (16:30)
[2017-06-20] MEDS ORDERED: INSULIN (NOVOLOG) ASPART 100 UNITS/ML 10ML VIAL ONE ×3 (17:18→21:01)
[2017-06-20] MEDS ORDERED: METRONIDAZOLE 500 MG PREMIXED 100 ML IVPB SCH (18:00)
[2017-06-20] MEDS ORDERED: PIPERACILLIN/TAZOB 3.375 GM 3.375 GM in DEXTROSE 5%-WATER - 50 ML IVPB SCH (18:00)
--- NOTE | 2017-06-20 19:32 | PN ---
Progress Note (short form) - Note Progress Note: Vascular Surgery Pt seen and examined. Dressing changed. left post thigh production machine tender. No areas of fluctuance. No areas of abscess. WBC 20. Will follow cont iv antibiotics. Costa Jennings DO
[2017-06-20] MEDS: LIDOCAINE 5% TOPICAL PATCH TP SCH (21:19)
[2017-06-20] MEDS ORDERED: HEPARIN NA (PORCINE) 5,000 UNITS/ML 1ML VIAL SQ SCH (22:00)
[2017-06-20] MEDS ORDERED: FAMOTIDINE 20 MG/50 ML IVPB 50 ML IVPB SCH (22:00)
[2017-06-20] MEDS ORDERED: LIDOCAINE 5% TOPICAL PATCH TP SCH (22:00)
[2017-06-21] MEDS ORDERED: DEXTROSE 5%-WATER - 50 ML IVPB ONE ×3 (01:00→18:13)
[2017-06-21] MEDS ORDERED: PIPERACILLIN/TAZOBACTAM 3.375 GM VIAL IVPB ONE ×3 (01:00→18:13)
[2017-06-21] MEDS: PIPERACILLIN/TAZOB 3.375 GM 3.375 GM in DEXTROSE 5%-WATER - 50 ML IVPB SCH ×2 (01:04→09:46)
[2017-06-21] MEDS: oxyCODONE HCL 5 MG TABLET PO PRN ×3 (01:12→21:32)
[2017-06-21] MEDS: ACETAMINOPHEN 325 MG TABLET (FP) PO PRN ×3 (01:13→21:33)
[2017-06-21] MEDS: METRONIDAZOLE 500 MG PREMIXED 100 ML IVPB SCH ×2 (02:28→09:47)
[2017-06-21] MEDS: CLINDAMYCIN 600MG PREMIX IVPB 50 ML IVPB SCH ×2 (03:35→09:46)
[2017-06-21] MEDS: HYDROmorphone HCL CARPU-JECT 2 MG/1 ML DISP.SYRIN IVPUSH PRN ×4 (03:53→23:19)
[2017-06-21] MEDS: GABAPENTIN 100 MG CAPSULE (FP) PO SCH ×3 (06:22→21:31)
[2017-06-21] MEDS: INSULIN SLIDING SCALE (NOVOLOG) 1 VIAL SQ SCH ×4 (06:23→21:04)
[2017-06-21] MEDS: INSULIN DETEMIR 100 UNITS/ML MDV SQ SCH (06:24)
[2017-06-21] MEDS ORDERED: PT OWN MED DRAWER 7, Y5N ONE (06:59)
[2017-06-21] MEDS ORDERED: INSULIN DETEMIR 100 UNITS/ML MDV SQ SCH (07:00)
[2017-06-21 07:24] LABS: BASOPHIL 0.1 % (0-2.0); MCH 23.8 pg (25.7-33.7); MCHC 31.4 g/dl (32.0-35.9); MEAN CELL VOLUME 75.9 fl (80-96); MEAN PLT VOLUME 6.8 fl (7.5-11.1); NEUTROPHILS 91.4 % (42.8-82.8); PLATELET COUNT 457 K/MM3 (134-434); RDW 16.4 % (11.9-15.9); WHITE BLOOD COUNT 18.9 K/mm3 (4.0-10.0)
[2017-06-21 08:14] LABS: ALBUMIN 1.1 g/dl (3.4-5.0); ALK PHOS 753 U/L (45-117); ANION GAP 11 (8-16); BILIRUBIN,TOTAL 0.5 mg/dL (0.2-1.0); CALCIUM 7.2 mg/dL (8.5-10.1); CO2 19 mmol/L (21-32); CREATININE 0.8 mg/dL (0.7-1.3); GLUCOSE,RANDOM 231 mg/dL (74-106); MAGNESIUM 1.8 mg/dL (1.8-2.4); SGOT/AST 10 U/L (15-37); SGPT/ALT 8 U/L (12-78); TOT PROT 4.6 g/dl (6.4-8.2)
[2017-06-21] MEDS: POTASSIUM CHLORIDE 10 MEQ in DEXTROSE 5%-NORMAL SALINE 1,000 ML IVPB SCH (09:44)
[2017-06-21] MEDS: FAMOTIDINE 20 MG/50 ML IVPB 50 ML IVPB SCH ×2 (09:46→23:35)
[2017-06-21] MEDS: COLLAGENASE CLOSTRIDIUM HIST. 30 GRAMS TUBE TP SCH (09:56)
[2017-06-21] MEDS: HEPARIN NA (PORCINE) 5,000 UNITS/ML 1ML VIAL SQ SCH ×2 (09:57→21:31)
[2017-06-21] MEDS: LISINOPRIL 20 MG TABLET (FP) PO SCH (09:57)
[2017-06-21] MEDS: LIDOCAINE PATCH REMOVAL MC SCH (09:57)
[2017-06-21] MEDS ORDERED: LISINOPRIL 20 MG TABLET (FP) PO SCH ×2 (10:00)
[2017-06-21] MEDS ORDERED: COLLAGENASE CLOSTRIDIUM HIST. 30 GRAMS TUBE TP SCH (10:00)
[2017-06-21] MEDS ORDERED: LIDOCAINE PATCH REMOVAL MC SCH (10:00)
[2017-06-21] MEDS ORDERED: INSULIN (NOVOLOG) ASPART 100 UNITS/ML 10ML VIAL ONE ×2 (12:21→17:58)
--- NOTE | 2017-06-21 13:18 | PN ---
Progress Note, Physician History of Present Illness: improving vascular note noted - Current Medication List Current Medications: Active Medications Acetaminophen (Tylenol -) 650 mg PO Q4H PRN PRN Reason: FEVER OR PAIN Last Admin: 06/21/17 12:00 Dose: 650 mg Collagenase (Santyl -) 1 applic TP DAILY [facility] Last Admin: 06/21/17 09:56 Dose: 1 applic Diphenhydramine HCl (Benadryl Injection -) 25 mg IVPB Q8H PRN PRN Reason: NAUSEA Gabapentin (Neurontin -) 100 mg PO TID [facility] Last Admin: 06/21/17 06:22 Dose: 100 mg Heparin Sodium (Porcine) (Heparin -) 5,000 unit SQ BID [facility] Last Admin: 06/21/17 09:57 Dose: 5,000 unit Hydromorphone HCl (Dilaudid Injection -) 2 mg IVPUSH Q4H PRN PRN Reason: PAIN Last Admin: 06/21/17 12:02 Dose: 2 mg Famotidine/Sodium Chloride (Pepcid 20 Mg Premixed Ivpb -) 50 mls @ 100 mls/hr IVPB BID [facility] Last Admin: 06/21/17 09:46 Dose: 100 mls/hr Piperacillin Sod/Tazobactam (Sod 3.375 gm/ Dextrose) 50 mls @ 100 mls/hr IVPB Q8H-IV [facility] PRN Reason: Protocol Last Admin: 06/21/17 09:46 Dose: 100 mls/hr Potassium Chloride 10 meq/ (Dextrose/Sodium Chloride) 1,005 mls @ 100 mls/hr IVPB Q10H [facility] Last Admin: 06/21/17 09:44 Dose: 100 mls/hr Vancomycin HCl 1,250 mg/ (Dextrose) 250 mls @ 250 mls/hr IVPB ONCE ONE PRN Reason: Protocol Stop: 06/21/17 14:14 Insulin Aspart (Novolog Vial Sliding Scale -) 1 vial SQ ACHS [facility] PRN Reason: Protocol Last Admin: 06/21/17 12:27 Dose: Not Given Insulin Detemir (Levemir Vial) 15 units SQ AM [facility] Last Admin: 06/21/17 06:24 Dose: 15 unit Lidocaine (Lidoderm Patch -) 1 patch TP HS [facility] Last Admin: 06/20/17 21:19 Dose: 1 patch Lisinopril (Prinivil) 20 mg PO DAILY [facility] Last Admin: 06/21/17 09:57 Dose: 20 mg Metoclopramide HCl (Reglan Injection -) 10 mg IVPB Q8H PRN PRN Reason: NAUSEA AND/OR VOMITING Miscellaneous (Lidoderm Patch Removal) 1 each MC DAILY [facility] Last Admin: 06/21/17 09:57 Dose: 1 each Ondansetron HCl (Zofran Injection) 4 mg IVPB Q6H PRN PRN Reason: NAUSEA Oxycodone HCl (Roxicodone -) 10 mg PO Q4H PRN PRN Reason: PAIN Last Admin: 06/21/17 11:57 Dose: 10 mg - Objective Vital Signs: Vital Signs Temperature 99.6 F 06/21/17 09:00 Pulse Rate 92 H 06/21/17 09:00 Respiratory Rate 20 06/21/17 09:00 Blood Pressure 143/73 06/21/17 09:00 O2 Sat by Pulse Oximetry (%) 100 06/20/17 21:00 Constitutional: Yes: No Distress, Calm Cardiovascular: Yes: Regular Rate and Rhythm Respiratory: Yes: Regular, CTA Bilaterally Gastrointestinal: Yes: Normal Bowel Sounds, Soft Musculoskeletal: Yes: Other Extremities: Yes: Erythema, Other (swelling improving) Integumentary: Yes: Erythema, Other Wound/Incision: Yes: Dressing Dry and Intact Neurological: Yes: Alert, Oriented Psychiatric: Yes: Alert, Oriented Labs: CBC, BMP 06/21/17 06:00 06/21/17 06:00 INR, PTT INR 1.07 (0.82-1.09) 06/17/17 00:05 Assessment/Plan Problem List - Problems (1) Sepsis Code(s): A41.9 - SEPSIS, UNSPECIFIED ORGANISM (2) Abscess and cellulitis Code(s): L03.90 - CELLULITIS, UNSPECIFIED L02.91 - CUTANEOUS ABSCESS, UNSPECIFIED (3) Cellulitis and abscess of left leg Code(s): L03.116 - CELLULITIS OF LEFT LOWER LIMB L02.416 - CUTANEOUS ABSCESS OF LEFT LOWER LIMB (4) Intractable vomiting with nausea Code(s): R11.2 - NAUSEA WITH VOMITING, UNSPECIFIED Qualifiers: Vomiting type: unspecified Qualified Code(s): R11.2 - Nausea with vomiting, unspecified; R11.2 - Nausea with vomiting, unspecified (5) Noncompliance with diabetes treatment Code(s): Z91.19 - PATIENT'S NONCOMPLIANCE W OTH MEDICAL TREATMENT AND REGIMEN (6) Diabetic ulcer of lower extremity Code(s): E11.622 - TYPE 2 DIABETES MELLITUS WITH OTHER SKIN ULCER L97.909 - NON-PRS CHRONIC ULC UNSP PRT OF UNSP LOW LEG W UNSP SEVERITY lactic acidosis leukocytosis plan will stop flagyl and clinda vanco level noted wbc trending down continue wound care will check vanco level tomorrow again
[2017-06-21] MEDS ORDERED: VANCOMYCIN 1,250 MG in DEXTROSE 5%-WATER - 250 ML IVPB ONE (13:30)
--- NOTE | 2017-06-21 13:53 | PN ---
Physical Exam: SUBJECTIVE: Patient seen and examined at the bedside. States he is very anxious and scared. Verbalizes pain on left lower ext wound. OBJECTIVE: Vital Signs Period Temp Pulse Resp BP Sys/Monet Pulse Ox Last 24 Hr 98 F-99.6 F 92-117 18-20 132-148/67-89 100 GENERAL: The patient is awake, alert, and fully oriented, very anxious HEAD: Normal with no signs of trauma. EYES: PERRL, extraocular movements intact, sclera anicteric, conjunctiva clear. No ptosis. ENT: Ears normal, nares patent, oropharynx clear without exudates, moist mucous membranes. NECK: Trachea midline, full range of motion, supple. LUNGS: Breath sounds equal, clear to auscultation bilaterally, no wheezes HEART: Regular rate and rhythm, S1, S2 without murmur, rub or gallop. ABDOMEN: Soft, nontender, nondistended, normoactive bowel sounds, no guarding, no rebound, no hepatosplenomegaly, no masses. EXTREMITIES: Left BKA, L lateral knee wound, clean, no drainage, open healed RUE graft NEUROLOGICAL: Normal speech, gait not observed. PSYCH: Normal mood, normal affect. Laboratory Results - last 24 hr 06/20/17 06/20/17 06/21/17 17:17 21:12 06:00 WBC RBC Hgb Hct MCV MCH MCHC RDW Plt Count MPV Neutrophils % Lymphocytes % Monocytes % Eosinophils % Basophils % Sodium Potassium Chloride Carbon Dioxide Anion Gap BUN Creatinine Creat Clearance w eGFR POC Glucometer 250 268 Random Glucose Calcium Magnesium Total Bilirubin AST ALT Alkaline Phosphatase Total Protein Albumin Random Vancomycin 6.274 06/21/17 06/21/17 06/21/17 06:00 06:00 06:20 WBC 18.9 H RBC 3.80 L Hgb 9.1 L Hct 28.8 L MCV 75.9 L MCH 23.8 L MCHC 31.4 L RDW 16.4 H Plt Count 457 H MPV 6.8 L Neutrophils % 91.4 H Lymphocytes % 3.9 L D Monocytes % 3.6 L Eosinophils % 1.0 Basophils % 0.1 Sodium 134 L Potassium 3.6 Chloride 104 Carbon Dioxide 19 L Anion Gap 11 BUN 5 L D Creatinine 0.8 D Creat Clearance w eGFR > 60 POC Glucometer 263 Random Glucose 231 H Calcium 7.2 L Magnesium 1.8 D Total Bilirubin 0.5 D AST 10 L ALT 8 L Alkaline Phosphatase 753 H Total Protein 4.6 L Albumin 1.1 L Random Vancomycin 06/21/17 12:26 WBC RBC Hgb Hct MCV MCH MCHC RDW Plt Count MPV Neutrophils % Lymphocytes % Monocytes % Eosinophils % Basophils % Sodium Potassium Chloride Carbon Dioxide Anion Gap BUN Creatinine Creat Clearance w eGFR POC Glucometer 175 Random Glucose Calcium Magnesium Total Bilirubin AST ALT Alkaline Phosphatase Total Protein Albumin Random Vancomycin Active Medications Generic Name Dose Route Start Last Admin Trade Name Freq PRN Reason Stop Dose Admin Acetaminophen 650 mg 06/20/17 14:04 06/21/17 12:00 Tylenol - PO 650 mg Q4H PRN Administration FEVER OR PAIN Collagenase 1 applic 06/21/17 10:00 06/21/17 09:56 Santyl - TP 1 applic DAILY [facility] Administration Diphenhydramine HCl 25 mg 06/20/17 14:04 Benadryl Injection - IVPB Q8H PRN NAUSEA Gabapentin 100 mg 06/20/17 16:45 06/21/17 06:22 Neurontin - PO 100 mg TID [facility] Administration Heparin Sodium (Porcine) 5,000 unit 06/20/17 22:00 06/21/17 09:57 Heparin - SQ 5,000 unit BID [facility] Administration Hydromorphone HCl 2 mg 06/20/17 14:04 06/21/17 12:02 Dilaudid Injection - IVPUSH 2 mg Q4H PRN Administration PAIN Famotidine/Sodium Chloride 50 mls @ 100 mls/hr 06/20/17 22:00 06/21/17 09:46 Pepcid 20 Mg Premixed Ivpb - IVPB 100 mls/hr BID [facility] Administration Piperacillin Sod/Tazobactam 50 mls @ 100 mls/hr 06/20/17 18:00 06/21/17 09:46 Sod 3.375 gm/ Dextrose IVPB 100 mls/hr Q8H-IV [facility] Administration Protocol Potassium Chloride 10 meq/ 1,005 mls @ 100 mls/hr 06/21/17 08:45 06/21/17 09:44 Dextrose/Sodium Chloride IVPB 100 mls/hr Q10H [facility] Administration Vancomycin HCl 1,250 mg/ 250 mls @ 166.667 mls/hr 06/21/17 13:30 Dextrose IVPB 06/21/17 14:59 ONCE ONE Protocol Insulin Aspart 1 vial 06/20/17 16:30 06/21/17 12:27 Novolog Vial Sliding Scale - SQ Not Given ACHS [facility] Protocol Insulin Detemir 15 units 06/21/17 07:00 06/21/17 06:24 Levemir Vial SQ 15 unit AM [facility] Administration Lidocaine 1 patch 06/20/17 22:00 06/20/17 21:19 Lidoderm Patch - TP 1 patch HS [facility] Administration Lisinopril 20 mg 06/21/17 10:00 06/21/17 09:57 Prinivil PO 20 mg DAILY [facility] Administration Metoclopramide HCl 10 mg 06/20/17 14:04 Reglan Injection - IVPB Q8H PRN NAUSEA AND/OR VOMITING Miscellaneous 1 each 06/21/17 10:00 06/21/17 09:57 Lidoderm Patch Removal MC 1 each DAILY [facility] Administration Ondansetron HCl 4 mg 06/20/17 14:04 Zofran Injection IVPB Q6H PRN NAUSEA Oxycodone HCl 10 mg 06/20/17 14:04 06/21/17 11:57 Roxicodone - PO 10 mg Q4H PRN Administration PAIN ASSESSMENT/PLAN: Patient is a 47 year old male with a significant past medical history of diabetes mellitus, multiple soft tissue infections and left BKA. He comes to the ED on 06/17/2017 complaining of left leg pain for the past week. The pain is located behind left knee and radiates up the posterior thigh. This pain is associated with fever, chills, nausea, vomiting and body aches. He is currently seeing Dr. Jennings at the wound care clinic and is undergoing hyperbaric treatment. ID: Sepsis secondary to diabetic wound A/P: WBC trending down, 18.9 Vanco and Clinda stopped, now on Zosyn as per ID Vanco levels for tomorrow On IVF of D5 NS w/10meq, lactic acid within normal limits Repeat CT scan of leg shows no definite interval changes in comparison to the prior CT study Monitor labs, vitals Endocrine: Hyperglycemia vs DKA A/P: Anion gap now closed On Levemir 15 units daily Becomes symptomatic when blood sugars go below 150, goal is to keep BS around 150-200s On IVF, monitor intake and d/c ivf if able to tolerate PO, but continues to eat very little UA with +3 protein Cardiology: Hypertension, uncontrolled A/P: Started on Lisinopril 20mg daily on 06/20/17 Monitor BP Renal: KENDRICK A/P: Resolved, Cr1.8> 0.8, monitor daily labs F.E.N. Fluids: continue ivf Electrolytes: hyponatremia, changed fluids to d5 ns 10meq @ 100cc/hr Nutrition: diabetic diet Prophylaxis: DVT: heparin BID GI: pepcid, reglan Disposition: Full code. Visit type - Emergency Visit Emergency Visit: Yes ED Registration Date: 06/17/17 Care time: The patient presented to the Emergency Department on the above date and was hospitalized for further evaluation of their emergent condition. - New Patient This patient is new to me today: No - Critical Care Critical Care patient: No - Discharge Referral Referred to [facility] Med P.C.: No
[2017-06-21] MEDS: METOCLOPRAMIDE HCL INJECTION 10 MG/2 ML VIAL IVPB PRN (18:24)
[2017-06-21] MEDS: LIDOCAINE 5% TOPICAL PATCH TP SCH (21:32)
[2017-06-22] MEDS ORDERED: DEXTROSE 5%-WATER - 50 ML IVPB ONE ×2 (01:00→11:30)
[2017-06-22] MEDS ORDERED: PIPERACILLIN/TAZOBACTAM 3.375 GM VIAL IVPB ONE ×2 (01:00→11:30)
[2017-06-22] MEDS: PIPERACILLIN/TAZOB 3.375 GM 3.375 GM in DEXTROSE 5%-WATER - 50 ML IVPB SCH ×3 (01:22→18:11)
[2017-06-22] MEDS: HYDROmorphone HCL CARPU-JECT 2 MG/1 ML DISP.SYRIN IVPUSH PRN ×3 (04:03→22:00)
[2017-06-22] MEDS: POTASSIUM CHLORIDE 10 MEQ in DEXTROSE 5%-NORMAL SALINE 1,000 ML IVPB SCH ×2 (04:45→18:12)
[2017-06-22] MEDS: oxyCODONE HCL 5 MG TABLET PO PRN ×2 (06:02→18:20)
[2017-06-22] MEDS: INSULIN DETEMIR 100 UNITS/ML MDV SQ SCH (06:02)
[2017-06-22] MEDS: ACETAMINOPHEN 325 MG TABLET (FP) PO PRN ×2 (06:05→18:19)
[2017-06-22] MEDS: INSULIN SLIDING SCALE (NOVOLOG) 1 VIAL SQ SCH ×4 (06:07→21:56)
[2017-06-22] MEDS: ONDANSETRON 4 MG/2 ML VIAL IVPB PRN (06:24)
[2017-06-22] MEDS: GABAPENTIN 100 MG CAPSULE (FP) PO SCH ×3 (06:24→21:56)
[2017-06-22 07:34] LABS: BASOPHIL 0.2 % (0-2.0); EOSINOPHIL 0.7 % (0-4.5); MCH 24.1 pg (25.7-33.7); MCHC 32.1 g/dl (32.0-35.9); NEUTROPHILS 89.8 % (42.8-82.8); PLATELET COUNT 441 K/MM3 (134-434); RDW 16.4 % (11.9-15.9); WHITE BLOOD COUNT 16.7 K/mm3 (4.0-10.0)
[2017-06-22 07:55] LABS: ALBUMIN 1.2 g/dl (3.4-5.0); ANION GAP 12 (8-16); CALCIUM 7.7 mg/dL (8.5-10.1); CO2 19 mmol/L (21-32); GLUCOSE,RANDOM 216 mg/dL (74-106); MAGNESIUM 1.8 mg/dL (1.8-2.4); SGOT/AST 10 U/L (15-37); SGPT/ALT 7 U/L (12-78)
[2017-06-22 07:57] LABS: ALK PHOS 656 U/L (45-117); BILIRUBIN,TOTAL 0.4 mg/dL (0.2-1.0); CREATININE 0.7 mg/dL (0.7-1.3)
[2017-06-22] MEDS: LISINOPRIL 20 MG TABLET (FP) PO SCH (11:45)
[2017-06-22] MEDS: FAMOTIDINE 20 MG/50 ML IVPB 50 ML IVPB SCH ×2 (11:46→21:56)
[2017-06-22] MEDS: HEPARIN NA (PORCINE) 5,000 UNITS/ML 1ML VIAL SQ SCH ×2 (11:48→21:55)
[2017-06-22] MEDS: COLLAGENASE CLOSTRIDIUM HIST. 30 GRAMS TUBE TP SCH (11:50)
[2017-06-22] MEDS: LIDOCAINE PATCH REMOVAL MC SCH (13:10)
--- NOTE | 2017-06-22 13:12 | PN ---
Progress Note, Physician History of Present Illness: pain main issues improving but leg still swollen still tenderness wbc still high though coming down - Current Medication List Current Medications: Active Medications Acetaminophen (Tylenol -) 650 mg PO Q4H PRN PRN Reason: FEVER OR PAIN Last Admin: 06/22/17 06:05 Dose: 650 mg Collagenase (Santyl -) 1 applic TP DAILY [facility] Last Admin: 06/22/17 11:50 Dose: 1 applic Diphenhydramine HCl (Benadryl Injection -) 25 mg IVPB Q8H PRN PRN Reason: NAUSEA Gabapentin (Neurontin -) 100 mg PO TID [facility] Last Admin: 06/22/17 06:24 Dose: 100 mg Heparin Sodium (Porcine) (Heparin -) 5,000 unit SQ BID [facility] Last Admin: 06/22/17 11:48 Dose: 5,000 unit Hydromorphone HCl (Dilaudid Injection -) 2 mg IVPUSH Q4H PRN PRN Reason: PAIN Last Admin: 06/22/17 11:35 Dose: 2 mg Famotidine/Sodium Chloride (Pepcid 20 Mg Premixed Ivpb -) 50 mls @ 100 mls/hr IVPB BID [facility] Last Admin: 06/22/17 11:46 Dose: 100 mls/hr Piperacillin Sod/Tazobactam (Sod 3.375 gm/ Dextrose) 50 mls @ 100 mls/hr IVPB Q8H-IV [facility] PRN Reason: Protocol Last Admin: 06/22/17 11:43 Dose: 100 mls/hr Potassium Chloride 10 meq/ (Dextrose/Sodium Chloride) 1,005 mls @ 100 mls/hr IVPB Q10H [facility] Last Admin: 06/22/17 04:45 Dose: 100 mls/hr Insulin Aspart (Novolog Vial Sliding Scale -) 1 vial SQ ACHS [facility] PRN Reason: Protocol Last Admin: 06/22/17 11:56 Dose: Not Given Insulin Detemir (Levemir Vial) 15 units SQ AM [facility] Last Admin: 06/22/17 06:02 Dose: 15 unit Lidocaine (Lidoderm Patch -) 1 patch TP HS [facility] Last Admin: 06/21/17 21:32 Dose: 1 patch Lisinopril (Prinivil) 20 mg PO DAILY [facility] Last Admin: 06/22/17 11:45 Dose: 20 mg Metoclopramide HCl (Reglan Injection -) 10 mg IVPB Q8H PRN PRN Reason: NAUSEA AND/OR VOMITING Last Admin: 06/21/17 18:24 Dose: 10 mg Miscellaneous (Lidoderm Patch Removal) 1 each MC DAILY [facility] Last Admin: 06/21/17 09:57 Dose: 1 each Ondansetron HCl (Zofran Injection) 4 mg IVPB Q6H PRN PRN Reason: NAUSEA Last Admin: 06/22/17 06:24 Dose: 4 mg Oxycodone HCl (Roxicodone -) 10 mg PO Q4H PRN PRN Reason: PAIN Last Admin: 06/22/17 06:02 Dose: 10 mg - Objective Vital Signs: Vital Signs Temperature 97.8 F 06/22/17 06:00 Pulse Rate 94 H 06/22/17 10:04 Respiratory Rate 18 06/22/17 06:00 Blood Pressure 139/87 06/22/17 06:00 O2 Sat by Pulse Oximetry (%) 98 06/22/17 10:04 Constitutional: Yes: Anxious, Moderate Distress Cardiovascular: Yes: Regular Rate and Rhythm Respiratory: Yes: Regular, CTA Bilaterally Musculoskeletal: Yes: Other (swelling of the left thigh and the leg) Extremities: Yes: Other (bka left leg with wound) Integumentary: Yes: Erythema, Other (swelling of the left leg) Wound/Incision: Yes: Dressing Dry and Intact Neurological: Yes: Alert, Oriented Psychiatric: Yes: Alert, Oriented Labs: CBC, BMP 06/22/17 06:00 06/22/17 06:00 INR, PTT INR 1.07 (0.82-1.09) 06/17/17 00:05 Assessment/Plan Problem List - Problems (1) Sepsis Code(s): A41.9 - SEPSIS, UNSPECIFIED ORGANISM (2) Abscess and cellulitis Code(s): L03.90 - CELLULITIS, UNSPECIFIED L02.91 - CUTANEOUS ABSCESS, UNSPECIFIED (3) Cellulitis and abscess of left leg Code(s): L03.116 - CELLULITIS OF LEFT LOWER LIMB L02.416 - CUTANEOUS ABSCESS OF LEFT LOWER LIMB (4) Intractable vomiting with nausea Code(s): R11.2 - NAUSEA WITH VOMITING, UNSPECIFIED Qualifiers: Vomiting type: unspecified Qualified Code(s): R11.2 - Nausea with vomiting, unspecified; R11.2 - Nausea with vomiting, unspecified (5) Noncompliance with diabetes treatment Code(s): Z91.19 - PATIENT'S NONCOMPLIANCE W OTH MEDICAL TREATMENT AND REGIMEN (6) Diabetic ulcer of lower extremity Code(s): E11.622 - TYPE 2 DIABETES MELLITUS WITH OTHER SKIN ULCER L97.909 - NON-PRS CHRONIC ULC UNSP PRT OF UNSP LOW LEG W UNSP SEVERITY lactic acidosis leukocytosis uti plan continue vanco and zosyn monitor wbc pain mgmt wound rest as per primary team
[2017-06-22] MEDS: VANCOMYCIN 1,250 MG in DEXTROSE 5%-WATER - 250 ML IVPB SCH (15:50)
--- NOTE | 2017-06-22 18:21 | PN ---
Progress Note (short form) - Note Progress Note: Subjective: Went to see the patient and he stated "get out". Current Medications Generic Name Dose Route Start Last Admin Trade Name Freq PRN Reason Stop Dose Admin Acetaminophen 650 mg 06/20/17 14:04 06/22/17 06:05 Tylenol - PO 650 mg Q4H PRN Administration FEVER OR PAIN Collagenase 1 applic 06/21/17 10:00 06/22/17 11:50 Santyl - TP 1 applic DAILY [facility] Administration Diphenhydramine HCl 25 mg 06/20/17 14:04 Benadryl Injection - IVPB Q8H PRN NAUSEA Gabapentin 100 mg 06/20/17 16:45 06/22/17 15:50 Neurontin - PO 100 mg TID [facility] Administration Heparin Sodium (Porcine) 5,000 unit 06/20/17 22:00 06/22/17 11:48 Heparin - SQ 5,000 unit BID [facility] Administration Hydromorphone HCl 2 mg 06/20/17 14:04 06/22/17 11:35 Dilaudid Injection - IVPUSH 2 mg Q4H PRN Administration PAIN Famotidine/Sodium Chloride 50 mls @ 100 mls/hr 06/20/17 22:00 06/22/17 11:46 Pepcid 20 Mg Premixed Ivpb - IVPB 100 mls/hr BID [facility] Administration Piperacillin Sod/Tazobactam 50 mls @ 100 mls/hr 06/20/17 18:00 06/22/17 11:43 Sod 3.375 gm/ Dextrose IVPB 100 mls/hr Q8H-IV [facility] Administration Protocol Potassium Chloride 10 meq/ 1,005 mls @ 100 mls/hr 06/21/17 08:45 06/22/17 04:45 Dextrose/Sodium Chloride IVPB 100 mls/hr Q10H [facility] Administration Vancomycin HCl 1,250 mg/ 250 mls @ 166.667 mls/hr 06/22/17 15:00 06/22/17 15:50 Dextrose IVPB 166.667 mls/hr DAILY@1500 [facility] Administration Protocol Insulin Aspart 1 vial 06/20/17 16:30 06/22/17 11:56 Novolog Vial Sliding Scale - SQ Not Given ACHS [facility] Protocol Insulin Detemir 15 units 06/21/17 07:00 06/22/17 06:02 Levemir Vial SQ 15 unit AM [facility] Administration Lidocaine 1 patch 06/20/17 22:00 06/21/17 21:32 Lidoderm Patch - TP 1 patch HS [facility] Administration Lisinopril 20 mg 06/21/17 10:00 06/22/17 11:45 Prinivil PO 20 mg DAILY [facility] Administration Metoclopramide HCl 10 mg 06/20/17 14:04 06/21/17 18:24 Reglan Injection - IVPB 10 mg Q8H PRN Administration NAUSEA AND/OR VOMITING Miscellaneous 1 each 06/21/17 10:00 06/22/17 13:10 Lidoderm Patch Removal MC 1 each DAILY [facility] Administration Ondansetron HCl 4 mg 06/20/17 14:04 06/22/17 06:24 Zofran Injection IVPB 4 mg Q6H PRN Administration NAUSEA Oxycodone HCl 10 mg 06/20/17 14:04 06/22/17 06:02 Roxicodone - PO 10 mg Q4H PRN Administration PAIN Objective: Vital Signs Period Temp Pulse Resp BP Sys/Monet Pulse Ox Last 24 Hr 97.8 F-100.6 F 90-101 18-20 121-142/67-93 98-99 Physical Exam: Refused CBCD WBC 16.7 K/mm3 (4.0-10.0) H 06/22/17 06:00 RBC 3.82 M/mm3 (4.00-5.60) L 06/22/17 06:00 Hgb 9.2 GM/dL (11.7-16.9) L 06/22/17 06:00 Hct 28.7 % (35.4-49) L 06/22/17 06:00 MCV 75.0 fl (80-96) L 06/22/17 06:00 MCHC 32.1 g/dl (32.0-35.9) 06/22/17 06:00 RDW 16.4 % (11.9-15.9) H 06/22/17 06:00 Plt Count 441 K/MM3 (134-434) H 06/22/17 06:00 MPV 7.0 fl (7.5-11.1) L 06/22/17 06:00 CMP Sodium 139 mmol/L (136-145) 06/22/17 06:00 Potassium 3.5 mmol/L (3.5-5.1) 06/22/17 06:00 Chloride 108 mmol/L (98-107) H 06/22/17 06:00 Carbon Dioxide 19 mmol/L (21-32) L 06/22/17 06:00 Anion Gap 12 (8-16) 06/22/17 06:00 BUN 4 mg/dL (7-18) L 06/22/17 06:00 Creatinine 0.7 mg/dL (0.7-1.3) 06/22/17 06:00 Creat Clearance w eGFR > 60 (>60) 06/22/17 06:00 Random Glucose 216 mg/dL (74-106) H 06/22/17 06:00 Calcium 7.7 mg/dL (8.5-10.1) L 06/22/17 06:00 Total Bilirubin 0.4 mg/dL (0.2-1.0) 06/22/17 06:00 AST 10 U/L (15-37) L 06/22/17 06:00 ALT 7 U/L (12-78) L 06/22/17 06:00 Alkaline Phosphatase 656 U/L (45-117) H 06/22/17 06:00 Total Protein 5.0 g/dl (6.4-8.2) L 06/22/17 06:00 Albumin 1.2 g/dl (3.4-5.0) L 06/22/17 06:00 CARDIAC ENZYMES Creatine Kinase 69 IU/L (39-308) 06/17/17 12:52 Troponin I < 0.02 ng/ml (0.00-0.05) 06/17/17 00:05 Microbiology 06/17/17 00:30 Blood - Peripheral Venous Blood Culture - Final NO GROWTH AFTER 5 DAYS INCUBATION 06/17/17 00:05 Blood - Peripheral Venous Blood Culture - Final Lactobacillus Species 06/17/17 00:41 Stump Gram Stain - Final 06/17/17 00:41 Stump Wound Culture - Final Staphylococcus Aureus Streptococcus Viridans Yeast Like Organism 06/17/17 06:30 Urine - Urine Clean Catch Urine Culture - Final Staphylococcus Aureus Assessment: This is a 47 year old male with PMHx of DM, multiple soft tissue infections, hx of MRSA, s/p left BKA who presented to the ED with worsening posterior left leg pain x1 week. Plan: 1) ID: Sepsis 2/2 diabetic wound - WBC continue to trend down - Tmax 100.6 overnight, instructed RN to call if febrile again, will repeat cultures - Cultures as above - Continue Vancomycin - Continue Zosyn - Apppreciate ID consult 2) Endocrine: Anion gap DM - Gap closed - Levemir 15u sq AM - BGM ACHS - ISS ACHS 3) F/E/N: - Visit type - Emergency Visit Emergency Visit: Yes ED Registration Date: 06/17/17 Care time: The patient presented to the Emergency Department on the above date and was hospitalized for further evaluation of their emergent condition. - New Patient This patient is new to me today: No - Critical Care Critical Care patient: No
[2017-06-22] MEDS: LIDOCAINE 5% TOPICAL PATCH TP SCH (21:55)
[2017-06-23] MEDS ORDERED: PT OWN MED DRAWER 7, Y5N ONE ×2 (00:55→17:19)
[2017-06-23] MEDS: PIPERACILLIN/TAZOB 3.375 GM 50 ML IVPB SCH ×3 (01:08→17:32)
[2017-06-23] MEDS: oxyCODONE HCL 5 MG TABLET PO PRN ×5 (02:14→21:07)
[2017-06-23] MEDS: ONDANSETRON 4 MG/2 ML VIAL IVPB PRN ×2 (02:14→12:12)
[2017-06-23] MEDS: ACETAMINOPHEN 325 MG TABLET (FP) PO PRN ×5 (02:15→21:08)
[2017-06-23] MEDS: POTASSIUM CHLORIDE 10 MEQ in DEXTROSE 5%-NORMAL SALINE 1,000 ML IVPB SCH ×5 (02:20→21:11)
[2017-06-23] MEDS: GABAPENTIN 100 MG CAPSULE (FP) PO SCH ×3 (06:14→21:10)
[2017-06-23] MEDS: INSULIN DETEMIR 100 UNITS/ML MDV SQ SCH (06:50)
[2017-06-23] MEDS: INSULIN SLIDING SCALE (NOVOLOG) 1 VIAL SQ SCH ×4 (06:51→21:34)
[2017-06-23] MEDS ORDERED: INSULIN DETEMIR 100 UNITS/ML MDV SQ ONE (06:52)
[2017-06-23 07:37] LABS: MEAN CELL VOLUME 74.9 fl (80-96); PLATELET COUNT 486 K/MM3 (134-434); RDW 16.7 % (11.9-15.9); WHITE BLOOD COUNT 12.9 K/mm3 (4.0-10.0)
[2017-06-23 08:19] LABS: ALBUMIN 1.2 g/dl (3.4-5.0); ALK PHOS 546 U/L (45-117); ANION GAP 9 (8-16); BILIRUBIN,TOTAL 0.5 mg/dL (0.2-1.0); CO2 21 mmol/L (21-32); CREATININE 0.7 mg/dL (0.7-1.3); GLUCOSE,RANDOM 237 mg/dL (74-106); SGOT/AST 8 U/L (15-37); SGPT/ALT 7 U/L (12-78); TOT PROT 4.6 g/dl (6.4-8.2)
[2017-06-23 08:23] LABS: CALCIUM 6.9 mg/dL (8.5-10.1)
[2017-06-23] MEDS: METOCLOPRAMIDE HCL INJECTION 10 MG/2 ML VIAL IVPB PRN (08:37)
[2017-06-23] MEDS: LIDOCAINE PATCH REMOVAL MC SCH (09:03)
[2017-06-23] MEDS: HEPARIN NA (PORCINE) 5,000 UNITS/ML 1ML VIAL SQ SCH ×2 (09:03→21:10)
[2017-06-23] MEDS: LISINOPRIL 20 MG TABLET (FP) PO SCH (09:03)
[2017-06-23] MEDS: FAMOTIDINE 20 MG/50 ML IVPB 50 ML IVPB SCH ×2 (09:04→21:10)
[2017-06-23] MEDS: COLLAGENASE CLOSTRIDIUM HIST. 30 GRAMS TUBE TP SCH (09:04)
--- NOTE | 2017-06-23 12:26 | PN ---
Progress Note, Physician History of Present Illness: pain main issues patient getting better leg improving - Current Medication List Current Medications: Active Medications Acetaminophen (Tylenol -) 650 mg PO Q4H PRN PRN Reason: FEVER OR PAIN Last Admin: 06/23/17 08:40 Dose: 650 mg Collagenase (Santyl -) 1 applic TP DAILY [facility] Last Admin: 06/23/17 09:04 Dose: 1 applic Diphenhydramine HCl (Benadryl Injection -) 25 mg IVPB Q8H PRN PRN Reason: NAUSEA Gabapentin (Neurontin -) 100 mg PO TID [facility] Last Admin: 06/23/17 06:14 Dose: 100 mg Heparin Sodium (Porcine) (Heparin -) 5,000 unit SQ BID [facility] Last Admin: 06/23/17 09:03 Dose: 5,000 unit Hydromorphone HCl (Dilaudid Injection -) 2 mg IVPUSH Q4H PRN PRN Reason: PAIN Last Admin: 06/22/17 22:00 Dose: 2 mg Famotidine/Sodium Chloride (Pepcid 20 Mg Premixed Ivpb -) 50 mls @ 100 mls/hr IVPB BID [facility] Last Admin: 06/23/17 09:04 Dose: 100 mls/hr Potassium Chloride 10 meq/ (Dextrose/Sodium Chloride) 1,005 mls @ 100 mls/hr IVPB Q10H [facility] Last Admin: 06/23/17 02:21 Dose: 100 mls/hr Vancomycin HCl 1,250 mg/ (Dextrose) 250 mls @ 166.667 mls/hr IVPB DAILY@1500 [facility] PRN Reason: Protocol Last Admin: 06/22/17 15:50 Dose: 166.667 mls/hr Piperacillin/Tazobactam/Dextrose (Zosyn 3.375gm Ivpb (Premix)) 50 mls @ 100 mls /hr IVPB Q8H-IV [facility] PRN Reason: Protocol Last Admin: 06/23/17 10:58 Dose: 100 mls/hr Insulin Aspart (Novolog Vial Sliding Scale -) 1 vial SQ ACHS [facility] PRN Reason: Protocol Last Admin: 06/23/17 06:51 Dose: 2 units Insulin Detemir (Levemir Vial) 15 units SQ AM [facility] Last Admin: 06/23/17 06:50 Dose: 15 unit Lidocaine (Lidoderm Patch -) 1 patch TP HS [facility] Last Admin: 06/22/17 21:55 Dose: 1 patch Lisinopril (Prinivil) 20 mg PO DAILY [facility] Last Admin: 06/23/17 09:03 Dose: 20 mg Metoclopramide HCl (Reglan Injection -) 10 mg IVPB Q8H PRN PRN Reason: NAUSEA AND/OR VOMITING Last Admin: 06/23/17 08:37 Dose: 10 mg Miscellaneous (Lidoderm Patch Removal) 1 each MC DAILY [facility] Last Admin: 06/23/17 09:03 Dose: 1 each Ondansetron HCl (Zofran Injection) 4 mg IVPB Q6H PRN PRN Reason: NAUSEA Last Admin: 06/23/17 12:12 Dose: 4 mg Oxycodone HCl (Roxicodone -) 10 mg PO Q4H PRN PRN Reason: PAIN Last Admin: 06/23/17 08:39 Dose: 10 mg - Objective Vital Signs: Vital Signs Temperature 98.3 F 06/23/17 05:29 Pulse Rate 87 06/23/17 10:48 Respiratory Rate 20 06/23/17 05:29 Blood Pressure 152/92 06/23/17 05:29 O2 Sat by Pulse Oximetry (%) 98 06/23/17 10:48 Constitutional: Yes: Calm, Mild Distress Cardiovascular: Yes: Regular Rate and Rhythm Respiratory: Yes: Regular, CTA Bilaterally Gastrointestinal: Yes: Normal Bowel Sounds, Soft Musculoskeletal: Yes: Other Extremities: Yes: Erythema (resolving), Other (swelling resolving) Wound/Incision: Yes: Dressing Dry and Intact Neurological: Yes: Alert, Oriented Psychiatric: Yes: Alert, Oriented Labs: CBC, BMP 06/23/17 06:00 06/23/17 06:00 INR, PTT INR 1.07 (0.82-1.09) 06/17/17 00:05 Assessment/Plan Problem List - Problems (1) Sepsis Code(s): A41.9 - SEPSIS, UNSPECIFIED ORGANISM (2) Abscess and cellulitis Code(s): L03.90 - CELLULITIS, UNSPECIFIED L02.91 - CUTANEOUS ABSCESS, UNSPECIFIED (3) Cellulitis and abscess of left leg Code(s): L03.116 - CELLULITIS OF LEFT LOWER LIMB L02.416 - CUTANEOUS ABSCESS OF LEFT LOWER LIMB (4) Intractable vomiting with nausea Code(s): R11.2 - NAUSEA WITH VOMITING, UNSPECIFIED Qualifiers: Vomiting type: unspecified Qualified Code(s): R11.2 - Nausea with vomiting, unspecified; R11.2 - Nausea with vomiting, unspecified (5) Noncompliance with diabetes treatment Code(s): Z91.19 - PATIENT'S NONCOMPLIANCE W OTH MEDICAL TREATMENT AND REGIMEN (6) Diabetic ulcer of lower extremity Code(s): E11.622 - TYPE 2 DIABETES MELLITUS WITH OTHER SKIN ULCER L97.909 - NON-PRS CHRONIC ULC UNSP PRT OF UNSP LOW LEG W UNSP SEVERITY lactic acidosis leukocytosis uti plan continue abx wound care wbc trending down rest as per primary check vanco level tomorrow
[2017-06-23] MEDS ORDERED: morphine CARPU-JECT 2 MG/1 ML DISP.SYRIN IVPB ONE (14:18)
--- NOTE | 2017-06-23 14:52 | PN ---
Progress Note (short form) - Note Progress Note: Subjective: The patient was seen and examined at the bedside, prior to me walking in RN states he was laughing with his . When I walking into the room he began to cry saying his leg hurt Current Medications Generic Name Dose Route Start Last Admin Trade Name Freq PRN Reason Stop Dose Admin Acetaminophen 650 mg 06/20/17 14:04 06/23/17 13:27 Tylenol - PO 650 mg Q4H PRN Administration FEVER OR PAIN Collagenase 1 applic 06/21/17 10:00 06/23/17 09:04 Santyl - TP 1 applic DAILY JESUS Administration Diphenhydramine HCl 25 mg 06/20/17 14:04 Benadryl Injection - IVPB Q8H PRN NAUSEA Gabapentin 100 mg 06/20/17 16:45 06/23/17 13:28 Neurontin - PO 100 mg TID JESUS Administration Heparin Sodium (Porcine) 5,000 unit 06/20/17 22:00 06/23/17 09:03 Heparin - SQ 5,000 unit BID JESUS Administration Famotidine/Sodium Chloride 50 mls @ 100 mls/hr 06/20/17 22:00 06/23/17 09:04 Pepcid 20 Mg Premixed Ivpb - IVPB 100 mls/hr BID JESUS Administration Potassium Chloride 10 meq/ 1,005 mls @ 100 mls/hr 06/21/17 08:45 06/23/17 13:28 Dextrose/Sodium Chloride IVPB Not Given Q10H JESUS Vancomycin HCl 1,250 mg/ 250 mls @ 166.667 mls/hr 06/22/17 15:00 06/22/17 15:50 Dextrose IVPB 166.667 mls/hr DAILY@1500 JESUS Administration Protocol Piperacillin/Tazobactam/Dextrose 50 mls @ 100 mls/hr 06/23/17 00:54 06/23/17 10 :58 Zosyn 3.375gm Ivpb (Premix) IVPB 100 mls/hr Q8H-IV JESUS Administration Protocol Insulin Aspart 1 vial 06/20/17 16:30 06/23/17 12:48 Novolog Vial Sliding Scale - SQ Not Given ACHS JESUS Protocol Insulin Detemir 15 units 06/21/17 07:00 06/23/17 06:50 Levemir Vial SQ 15 unit AM JESUS Administration Lidocaine 1 patch 06/20/17 22:00 06/22/17 21:55 Lidoderm Patch - TP 1 patch HS JESUS Administration Lisinopril 20 mg 06/21/17 10:00 06/23/17 09:03 Prinivil PO 20 mg DAILY JESUS Administration Metoclopramide HCl 10 mg 06/20/17 14:04 06/23/17 08:37 Reglan Injection - IVPB 10 mg Q8H PRN Administration NAUSEA AND/OR VOMITING Miscellaneous 1 each 06/21/17 10:00 06/23/17 09:03 Lidoderm Patch Removal MC 1 each DAILY JESUS Administration Ondansetron HCl 4 mg 06/20/17 14:04 06/23/17 12:12 Zofran Injection IVPB 4 mg Q6H PRN Administration NAUSEA Oxycodone HCl 10 mg 06/23/17 14:21 Roxicodone - PO Q4H PRN PAIN Objective: Vital Signs Period Temp Pulse Resp BP Sys/Monet Pulse Ox Last 24 Hr 96 F-98.6 F 87-99 18-20 133-152/67-92 98-98 Physical Exam: Refused CBCD WBC 12.9 K/mm3 (4.0-10.0) H 06/23/17 06:00 RBC 3.86 M/mm3 (4.00-5.60) L 06/23/17 06:00 Hgb 9.3 GM/dL (11.7-16.9) L 06/23/17 06:00 Hct 28.9 % (35.4-49) L 06/23/17 06:00 MCV 74.9 fl (80-96) L 06/23/17 06:00 MCHC 32.0 g/dl (32.0-35.9) 06/23/17 06:00 RDW 16.7 % (11.9-15.9) H 06/23/17 06:00 Plt Count 486 K/MM3 (134-434) H 06/23/17 06:00 MPV 7.0 fl (7.5-11.1) L 06/23/17 06:00 CMP Sodium 138 mmol/L (136-145) 06/23/17 06:00 Potassium 3.3 mmol/L (3.5-5.1) L 06/23/17 06:00 Chloride 108 mmol/L (98-107) H 06/23/17 06:00 Carbon Dioxide 21 mmol/L (21-32) 06/23/17 06:00 Anion Gap 9 (8-16) 06/23/17 06:00 BUN 3 mg/dL (7-18) L D 06/23/17 06:00 Creatinine 0.7 mg/dL (0.7-1.3) 06/23/17 06:00 Creat Clearance w eGFR > 60 (>60) 06/23/17 06:00 Random Glucose 237 mg/dL (74-106) H 06/23/17 06:00 Calcium 6.9 mg/dL (8.5-10.1) L* 06/23/17 06:00 Total Bilirubin 0.5 mg/dL (0.2-1.0) D 06/23/17 06:00 AST 8 U/L (15-37) L 06/23/17 06:00 ALT 7 U/L (12-78) L 06/23/17 06:00 Alkaline Phosphatase 546 U/L (45-117) H 06/23/17 06:00 Total Protein 4.6 g/dl (6.4-8.2) L 06/23/17 06:00 Albumin 1.2 g/dl (3.4-5.0) L 06/23/17 06:00 CARDIAC ENZYMES Creatine Kinase 69 IU/L (39-308) 06/17/17 12:52 Troponin I < 0.02 ng/ml (0.00-0.05) 06/17/17 00:05 Microbiology 06/17/17 00:30 Blood - Peripheral Venous Blood Culture - Final NO GROWTH AFTER 5 DAYS INCUBATION 06/17/17 00:05 Blood - Peripheral Venous Blood Culture - Final Lactobacillus Species 06/17/17 00:41 Stump Gram Stain - Final 06/17/17 00:41 Stump Wound Culture - Final Staphylococcus Aureus Streptococcus Viridans Yeast Like Organism 06/17/17 06:30 Urine - Urine Clean Catch Urine Culture - Final Staphylococcus Aureus Assessment: This is a 47 year old male with PMHx of DM, multiple soft tissue infections, hx of MRSA, s/p left BKA who presented to the ED with worsening posterior left leg pain x1 week. Plan: 1) ID: Sepsis 2/2 diabetic wound - WBC continue to trend down - Afebrile - Cultures as above - Continue Vancomycin, level tomorrow - Continue Zosyn - Apppreciate ID consult Left lower extremity pain - Per vascular no acute pathology can be seen 2) Endocrine: Anion gap DM - Gap closed - Levemir 15u sq AM - BGM ACHS - ISS ACHS 3) F/E/N: - Diabetic diet - Monitor electrolytes 4) Prophylaxis: - Heparin 5,000u sq tid - PT 5) Dispo: - Requires continued inpatient care CODE STATUS: FULL CODE Visit type - Emergency Visit Emergency Visit: Yes ED Registration Date: 06/17/17 Care time: The patient presented to the Emergency Department on the above date and was hospitalized for further evaluation of their emergent condition. - New Patient This patient is new to me today: No - Critical Care Critical Care patient: No
[2017-06-23] MEDS: VANCOMYCIN 1,250 MG in DEXTROSE 5%-WATER - 250 ML IVPB SCH (15:23)
[2017-06-23] MEDS ORDERED: POTASSIUM CHLORIDE TABS 20 MEQ TABLET.ER (FP) PO ONE ×2 (18:15→20:30)
[2017-06-23] MEDS ORDERED: INSULIN (NOVOLOG) ASPART 100 UNITS/ML 10ML VIAL ONE (20:59)
[2017-06-23] MEDS: LIDOCAINE 5% TOPICAL PATCH TP SCH (21:11)
[2017-06-24] MEDS: PIPERACILLIN/TAZOB 3.375 GM 50 ML IVPB SCH ×3 (01:44→17:39)
[2017-06-24] MEDS: POTASSIUM CHLORIDE 10 MEQ in DEXTROSE 5%-NORMAL SALINE 1,000 ML IVPB SCH ×3 (02:25→16:05)
[2017-06-24] MEDS: oxyCODONE HCL 5 MG TABLET PO PRN ×5 (02:38→21:27)
[2017-06-24] MEDS: ACETAMINOPHEN 325 MG TABLET (FP) PO PRN ×3 (02:39→21:27)
[2017-06-24] MEDS: HEPARIN NA (PORCINE) 5,000 UNITS/ML 1ML VIAL SQ SCH ×3 (06:19→21:25)
[2017-06-24] MEDS: GABAPENTIN 100 MG CAPSULE (FP) PO SCH ×3 (06:19→21:25)
[2017-06-24] MEDS: INSULIN DETEMIR 100 UNITS/ML MDV SQ SCH (06:19)
[2017-06-24] MEDS: INSULIN SLIDING SCALE (NOVOLOG) 1 VIAL SQ SCH ×4 (06:20→21:26)
[2017-06-24 08:59] LABS: BASOPHIL 0.4 % (0-2.0); EOSINOPHIL 1.2 % (0-4.5); MCHC 31.8 g/dl (32.0-35.9); MEAN CELL VOLUME 75.5 fl (80-96); MEAN PLT VOLUME 6.8 fl (7.5-11.1); NEUTROPHILS 91.3 % (42.8-82.8); PLATELET COUNT 549 K/MM3 (134-434); RDW 16.7 % (11.9-15.9); WHITE BLOOD COUNT 16.1 K/mm3 (4.0-10.0)
[2017-06-24 09:27] LABS: ALBUMIN 1.1 g/dl (3.4-5.0); ALK PHOS 527 U/L (45-117); ANION GAP 11 (8-16); BILIRUBIN,TOTAL 0.3 mg/dL (0.2-1.0); CO2 21 mmol/L (21-32); CREATININE 0.8 mg/dL (0.7-1.3); GLUCOSE,RANDOM 200 mg/dL (74-106); SGOT/AST 10 U/L (15-37); SGPT/ALT 7 U/L (12-78); TOT PROT 4.7 g/dl (6.4-8.2)
[2017-06-24 09:30] LABS: CALCIUM 6.9 mg/dL (8.5-10.1)
[2017-06-24] MEDS: LISINOPRIL 20 MG TABLET (FP) PO SCH (10:00)
[2017-06-24] MEDS: LIDOCAINE PATCH REMOVAL MC SCH (10:00)
[2017-06-24] MEDS: FAMOTIDINE 20 MG/50 ML IVPB 50 ML IVPB SCH ×2 (11:47→21:26)
[2017-06-24] MEDS ORDERED: POTASSIUM CHLORIDE TABS 20 MEQ TABLET.ER (FP) PO ONE (13:59)
--- NOTE | 2017-06-24 14:23 | PN ---
Progress Note (short form) - Note Progress Note: Subjective: The patient was seen and examined at the bedside, observed sleeping comfortably for about 5 minutes. Once awoken, he began to cry saying "why did you stop my liquid pain medication". He has been refusing to eat since IV pain medication was discontinued yesterday and is taking Oxycodone and then states he is nauseous. Current Medications Generic Name Dose Route Start Last Admin Trade Name Freq PRN Reason Stop Dose Admin Acetaminophen 650 mg 06/20/17 14:04 06/24/17 06:21 Tylenol - PO 650 mg Q4H PRN Administration FEVER OR PAIN Collagenase 1 applic 06/21/17 10:00 06/23/17 09:04 Santyl - TP 1 applic DAILY JESUS Administration Diphenhydramine HCl 25 mg 06/20/17 14:04 Benadryl Injection - IVPB Q8H PRN NAUSEA Gabapentin 100 mg 06/20/17 16:45 06/24/17 06:19 Neurontin - PO 100 mg TID JESUS Administration Heparin Sodium (Porcine) 5,000 unit 06/23/17 22:00 06/24/17 15:05 Heparin - SQ 5,000 unit TID JESUS Administration Famotidine/Sodium Chloride 50 mls @ 100 mls/hr 06/20/17 22:00 06/24/17 11:47 Pepcid 20 Mg Premixed Ivpb - IVPB 100 mls/hr BID JESUS Administration Potassium Chloride 10 meq/ 1,005 mls @ 100 mls/hr 06/21/17 08:45 06/24/17 06:19 Dextrose/Sodium Chloride IVPB Not Given Q10H JESUS Vancomycin HCl 1,250 mg/ 250 mls @ 166.667 mls/hr 06/22/17 15:00 06/23/17 15:23 Dextrose IVPB 166.667 mls/hr DAILY@1500 JESUS Administration Protocol Piperacillin/Tazobactam/Dextrose 50 mls @ 100 mls/hr 06/23/17 00:54 06/24/17 01 :44 Zosyn 3.375gm Ivpb (Premix) IVPB 100 mls/hr Q8H-IV JESUS Administration Protocol Insulin Aspart 1 vial 06/20/17 16:30 06/24/17 12:36 Novolog Vial Sliding Scale - SQ Not Given ACHS JESUS Protocol Insulin Detemir 15 units 06/21/17 07:00 06/24/17 06:19 Levemir Vial SQ 15 unit AM JESUS Administration Lidocaine 1 patch 06/20/17 22:00 06/23/17 21:11 Lidoderm Patch - TP 1 patch HS JESUS Administration Lisinopril 20 mg 06/21/17 10:00 06/23/17 09:03 Prinivil PO 20 mg DAILY JESUS Administration Metoclopramide HCl 10 mg 06/20/17 14:04 06/23/17 08:37 Reglan Injection - IVPB 10 mg Q8H PRN Administration NAUSEA AND/OR VOMITING Miscellaneous 1 each 06/21/17 10:00 06/23/17 09:03 Lidoderm Patch Removal MC 1 each DAILY JESUS Administration Ondansetron HCl 4 mg 06/20/17 14:04 06/23/17 12:12 Zofran Injection IVPB 4 mg Q6H PRN Administration NAUSEA Oxycodone HCl 10 mg 06/23/17 14:21 06/24/17 11:08 Roxicodone - PO 10 mg Q4H PRN Administration PAIN Objective: Vital Signs Period Temp Pulse Resp BP Sys/Monet Pulse Ox Last 24 Hr 98.0 F-98.7 F 84-94 18-20 124-146/66-76 96-97 Physical Exam: Refused CBCD WBC 16.1 K/mm3 (4.0-10.0) H 06/24/17 08:40 RBC 3.91 M/mm3 (4.00-5.60) L 06/24/17 08:40 Hgb 9.4 GM/dL (11.7-16.9) L 06/24/17 08:40 Hct 29.5 % (35.4-49) L 06/24/17 08:40 MCV 75.5 fl (80-96) L 06/24/17 08:40 MCHC 31.8 g/dl (32.0-35.9) L 06/24/17 08:40 RDW 16.7 % (11.9-15.9) H 06/24/17 08:40 Plt Count 549 K/MM3 (134-434) H 06/24/17 08:40 MPV 6.8 fl (7.5-11.1) L 06/24/17 08:40 CMP Sodium 141 mmol/L (136-145) 06/24/17 08:40 Potassium 3.3 mmol/L (3.5-5.1) L 06/24/17 08:40 Chloride 109 mmol/L (98-107) H 06/24/17 08:40 Carbon Dioxide 21 mmol/L (21-32) 06/24/17 08:40 Anion Gap 11 (8-16) 06/24/17 08:40 BUN 4 mg/dL (7-18) L D 06/24/17 08:40 Creatinine 0.8 mg/dL (0.7-1.3) 06/24/17 08:40 Creat Clearance w eGFR > 60 (>60) 06/24/17 08:40 Random Glucose 200 mg/dL (74-106) H 06/24/17 08:40 Calcium 6.9 mg/dL (8.5-10.1) L* 06/24/17 08:40 Total Bilirubin 0.3 mg/dL (0.2-1.0) D 06/24/17 08:40 AST 10 U/L (15-37) L D 06/24/17 08:40 ALT 7 U/L (12-78) L 06/24/17 08:40 Alkaline Phosphatase 527 U/L (45-117) H 06/24/17 08:40 Total Protein 4.7 g/dl (6.4-8.2) L 06/24/17 08:40 Albumin 1.1 g/dl (3.4-5.0) L 06/24/17 08:40 CARDIAC ENZYMES Creatine Kinase 69 IU/L (39-308) 06/17/17 12:52 Troponin I < 0.02 ng/ml (0.00-0.05) 06/17/17 00:05 Microbiology 06/17/17 00:30 Blood - Peripheral Venous Blood Culture - Final NO GROWTH AFTER 5 DAYS INCUBATION 06/17/17 00:05 Blood - Peripheral Venous Blood Culture - Final Lactobacillus Species 06/17/17 00:41 Stump Gram Stain - Final 06/17/17 00:41 Stump Wound Culture - Final Staphylococcus Aureus Streptococcus Viridans Yeast Like Organism 06/17/17 06:30 Urine - Urine Clean Catch Urine Culture - Final Staphylococcus Aureus Assessment: This is a 47 year old male with PMHx of DM, multiple soft tissue infections, hx of MRSA, s/p left BKA who presented to the ED with worsening posterior left leg pain x1 week. Plan: 1) ID: Sepsis 2/2 diabetic wound - WBC trending up - Afebrile - Cultures as above - Continue Vancomycin, level tomorrow - Continue Zosyn - Apppreciate ID consult Left lower extremity pain - Per vascular no acute pathology can be seen 2) Endocrine: Anion gap DM - Gap closed - Levemir 15u sq AM - BGM ACHS - ISS ACHS 3) F/E/N: - Diabetic diet, soft: patient refusing to eat - Monitor electrolytes - Hypokalemia: replete 4) Prophylaxis: - Heparin 5,000u sq tid - PT 5) Dispo: - Requires continued inpatient care CODE STATUS: FULL CODE Visit type - Emergency Visit Emergency Visit: Yes ED Registration Date: 06/17/17 Care time: The patient presented to the Emergency Department on the above date and was hospitalized for further evaluation of their emergent condition. - New Patient This patient is new to me today: No - Critical Care Critical Care patient: No
[2017-06-24] MEDS ORDERED: PT OWN MED DRAWER 7, Y5N ONE (14:52)
--- NOTE | 2017-06-24 15:41 | PN ---
Progress Note, Physician Chief Complaint: ID progress note History of Present Illness: Pt seen and examined. Chart/labs/imaging results reviewed. Pt is currently complaining of pain. Has nausea and vomiting clear fluid. As per RN has been noncompliant with some medications. No reported fever but increased wbc from yesterday. - Current Medication List Current Medications: Active Medications Acetaminophen (Tylenol -) 650 mg PO Q4H PRN PRN Reason: FEVER OR PAIN Last Admin: 06/24/17 06:21 Dose: 650 mg Collagenase (Santyl -) 1 applic TP DAILY [facility] Last Admin: 06/23/17 09:04 Dose: 1 applic Diphenhydramine HCl (Benadryl Injection -) 25 mg IVPB Q8H PRN PRN Reason: NAUSEA Gabapentin (Neurontin -) 100 mg PO TID [facility] Last Admin: 06/24/17 06:19 Dose: 100 mg Heparin Sodium (Porcine) (Heparin -) 5,000 unit SQ TID [facility] Last Admin: 06/24/17 15:05 Dose: 5,000 unit Famotidine/Sodium Chloride (Pepcid 20 Mg Premixed Ivpb -) 50 mls @ 100 mls/hr IVPB BID [facility] Last Admin: 06/24/17 11:47 Dose: 100 mls/hr Potassium Chloride 10 meq/ (Dextrose/Sodium Chloride) 1,005 mls @ 100 mls/hr IVPB Q10H [facility] Last Admin: 06/24/17 06:19 Dose: Not Given Vancomycin HCl 1,250 mg/ (Dextrose) 250 mls @ 166.667 mls/hr IVPB DAILY@1500 JESUS PRN Reason: Protocol Last Admin: 06/23/17 15:23 Dose: 166.667 mls/hr Piperacillin/Tazobactam/Dextrose (Zosyn 3.375gm Ivpb (Premix)) 50 mls @ 100 mls /hr IVPB Q8H-IV JESUS PRN Reason: Protocol Last Admin: 06/24/17 01:44 Dose: 100 mls/hr Insulin Aspart (Novolog Vial Sliding Scale -) 1 vial SQ ACHS JESUS PRN Reason: Protocol Last Admin: 06/24/17 12:36 Dose: Not Given Insulin Detemir (Levemir Vial) 15 units SQ AM [facility] Last Admin: 06/24/17 06:19 Dose: 15 unit Lidocaine (Lidoderm Patch -) 1 patch TP HS [facility] Last Admin: 06/23/17 21:11 Dose: 1 patch Lisinopril (Prinivil) 20 mg PO DAILY [facility] Last Admin: 06/23/17 09:03 Dose: 20 mg Metoclopramide HCl (Reglan Injection -) 10 mg IVPB Q8H PRN PRN Reason: NAUSEA AND/OR VOMITING Last Admin: 06/23/17 08:37 Dose: 10 mg Miscellaneous (Lidoderm Patch Removal) 1 each MC DAILY [facility] Last Admin: 06/23/17 09:03 Dose: 1 each Ondansetron HCl (Zofran Injection) 4 mg IVPB Q6H PRN PRN Reason: NAUSEA Last Admin: 06/23/17 12:12 Dose: 4 mg Oxycodone HCl (Roxicodone -) 10 mg PO Q4H PRN PRN Reason: PAIN Last Admin: 06/24/17 11:08 Dose: 10 mg - Objective Vital Signs: Vital Signs Temperature 98.4 F 06/24/17 14:57 Pulse Rate 89 06/24/17 14:57 Respiratory Rate 18 06/24/17 14:57 Blood Pressure 141/72 06/24/17 14:57 O2 Sat by Pulse Oximetry (%) 97 06/24/17 11:50 Constitutional: Yes: Moderate Distress (due to pain and vomiting) Neck: Yes: WNL Cardiovascular: Yes: Regular Rate and Rhythm Respiratory: Yes: Regular, Rales (mild) Gastrointestinal: Yes: Normal Bowel Sounds, Soft Extremities: Yes: Amputation (LT BKA, lateral leg ulcer with purulent drainage , +tenderness, edema) Integumentary: Yes: Other (Lt lateral leg wound with drainage) Psychiatric: Yes: Alert Labs: CBC, BMP 06/24/17 08:40 06/24/17 08:40 INR, PTT INR 1.07 (0.82-1.09) 06/17/17 00:05 Microbiology 06/17/17 00:30 Blood - Peripheral Venous Blood Culture - Final NO GROWTH AFTER 5 DAYS INCUBATION 06/17/17 00:05 Blood - Peripheral Venous Blood Culture - Final Lactobacillus Species 06/17/17 00:41 Stump Gram Stain - Final 06/17/17 00:41 Stump Wound Culture - Final Staphylococcus Aureus Streptococcus Viridans Yeast Like Organism 06/17/17 06:30 Urine - Urine Clean Catch Urine Culture - Final Staphylococcus Aureus Problem List - Problems (1) Diabetic neuropathy Code(s): E11.40 - TYPE 2 DIABETES MELLITUS WITH DIABETIC NEUROPATHY, UNSP Qualifiers: Diabetes mellitus type: type 2 (2) Hyperglycemia Code(s): R73.9 - HYPERGLYCEMIA, UNSPECIFIED (3) Leg wound, left Code(s): S81.802A - UNSPECIFIED OPEN WOUND, LEFT LOWER LEG, INITIAL ENCOUNTER (4) Sepsis Code(s): A41.9 - SEPSIS, UNSPECIFIED ORGANISM (5) Abscess and cellulitis Code(s): L03.90 - CELLULITIS, UNSPECIFIED L02.91 - CUTANEOUS ABSCESS, UNSPECIFIED (6) Gastroparesis due to DM Code(s): E11.43 - TYPE 2 DIABETES W DIABETIC AUTONOMIC (POLY)NEUROPATHY K31.84 - GASTROPARESIS (7) Hyperglycemia due to type 2 diabetes mellitus Code(s): E11.65 - TYPE 2 DIABETES MELLITUS WITH HYPERGLYCEMIA Qualifiers: Diabetes mellitus senior care insulin use: unspecified long term care administrator insulin use status Qualified Code(s): E11.65 - Type 2 diabetes mellitus with hyperglycemia; E11.65 - Type 2 diabetes mellitus with hyperglycemia; E11.65 - Type 2 diabetes mellitus with hyperglycemia; E11.65 - Type 2 diabetes mellitus with hyperglycemia (8) Nausea & vomiting Code(s): R11.2 - NAUSEA WITH VOMITING, UNSPECIFIED Qualifiers: Vomiting Intractability: intractable Assessment/Plan Left BKA, Lateral leg ulcer/abscess UTI Leukocytosis -- repeat blood culture, lactic acid, and cbc/bmp -- for now continue current antibiotics -- monitor wbc trend -- needs tight glycemic control -- pain control - consider repeat imaging and surgical re-evaluation if leukocytosis persists - continue wound care
[2017-06-24] MEDS: COLLAGENASE CLOSTRIDIUM HIST. 30 GRAMS TUBE TP SCH (16:04)
[2017-06-24] MEDS: VANCOMYCIN 1,250 MG in DEXTROSE 5%-WATER - 250 ML IVPB SCH (16:05)
[2017-06-24] MEDS: LIDOCAINE 5% TOPICAL PATCH TP SCH (21:25)
[2017-06-25] MEDS ORDERED: PT OWN MED DRAWER 7, Y5N ONE ×2 (01:00→20:58)
[2017-06-25] MEDS: PIPERACILLIN/TAZOB 3.375 GM 50 ML IVPB SCH ×2 (01:16→11:20)
[2017-06-25] MEDS: POTASSIUM CHLORIDE 10 MEQ in DEXTROSE 5%-NORMAL SALINE 1,000 ML IVPB SCH ×3 (01:18→12:33)
[2017-06-25] MEDS: oxyCODONE HCL 5 MG TABLET PO PRN ×3 (03:43→22:27)
[2017-06-25] MEDS: ACETAMINOPHEN 325 MG TABLET (FP) PO PRN (03:47)
[2017-06-25] MEDS: GABAPENTIN 100 MG CAPSULE (FP) PO SCH ×3 (06:43→22:27)
[2017-06-25] MEDS: INSULIN SLIDING SCALE (NOVOLOG) 1 VIAL SQ SCH ×4 (06:43→22:35)
[2017-06-25] MEDS: HEPARIN NA (PORCINE) 5,000 UNITS/ML 1ML VIAL SQ SCH ×3 (06:43→22:28)
[2017-06-25] MEDS: INSULIN DETEMIR 100 UNITS/ML MDV SQ SCH (06:43)
[2017-06-25 07:33] LABS: BASOPHIL 0.3 % (0-2.0); EOSINOPHIL 1.3 % (0-4.5); MCH 23.9 pg (25.7-33.7); MCHC 31.7 g/dl (32.0-35.9); MEAN CELL VOLUME 75.3 fl (80-96); MEAN PLT VOLUME 6.9 fl (7.5-11.1); NEUTROPHILS 88.8 % (42.8-82.8); PLATELET COUNT 634 K/MM3 (134-434); RDW 16.8 % (11.9-15.9); WHITE BLOOD COUNT 16.1 K/mm3 (4.0-10.0)
[2017-06-25 08:12] LABS: ALBUMIN 1.2 g/dl (3.4-5.0); ALK PHOS 528 U/L (45-117); ANION GAP 10 (8-16); BILIRUBIN,TOTAL 0.5 mg/dL (0.2-1.0); CO2 21 mmol/L (21-32); CREATININE 0.8 mg/dL (0.7-1.3); GLUCOSE,RANDOM 219 mg/dL (74-106); SGOT/AST 9 U/L (15-37); SGPT/ALT 6 U/L (12-78); TOT PROT 4.9 g/dl (6.4-8.2)
[2017-06-25 09:16] LABS: CALCIUM 6.9 mg/dL (8.5-10.1)
[2017-06-25] MEDS: LISINOPRIL 20 MG TABLET (FP) PO SCH (10:20)
[2017-06-25] MEDS: FAMOTIDINE 20 MG/50 ML IVPB 50 ML IVPB SCH ×2 (10:30→23:05)
[2017-06-25] MEDS: LIDOCAINE PATCH REMOVAL MC SCH (11:24)
[2017-06-25] MEDS: VANCOMYCIN 1,250 MG in DEXTROSE 5%-WATER - 250 ML IVPB SCH (14:28)
[2017-06-25] MEDS: COLLAGENASE CLOSTRIDIUM HIST. 30 GRAMS TUBE TP SCH (14:33)
--- NOTE | 2017-06-25 15:30 | PN ---
Progress Note, Physician Chief Complaint: I.D. Progress Note History of Present Illness: Pt seen and examined. Less agitated today. Pain appears to be controlled at this time. Reports vomiting earlier today. Afebrile, and without other specific complaints. - Current Medication List Current Medications: Active Medications Acetaminophen (Tylenol -) 650 mg PO Q4H PRN PRN Reason: FEVER OR PAIN Last Admin: 06/25/17 03:47 Dose: 650 mg Collagenase (Santyl -) 1 applic TP DAILY [facility] Last Admin: 06/25/17 14:33 Dose: 1 applic Diphenhydramine HCl (Benadryl Injection -) 25 mg IVPB Q8H PRN PRN Reason: NAUSEA Gabapentin (Neurontin -) 100 mg PO TID [facility] Last Admin: 06/25/17 06:43 Dose: 100 mg Heparin Sodium (Porcine) (Heparin -) 5,000 unit SQ TID [facility] Last Admin: 06/25/17 14:33 Dose: 5,000 unit Famotidine/Sodium Chloride (Pepcid 20 Mg Premixed Ivpb -) 50 mls @ 100 mls/hr IVPB BID [facility] Last Admin: 06/25/17 10:30 Dose: 100 mls/hr Potassium Chloride 10 meq/ (Dextrose/Sodium Chloride) 1,005 mls @ 100 mls/hr IVPB Q10H [facility] Last Admin: 06/25/17 12:33 Dose: 100 mls/hr Vancomycin HCl 1,250 mg/ (Dextrose) 250 mls @ 166.667 mls/hr IVPB DAILY@1500 [facility] PRN Reason: Protocol Last Admin: 06/25/17 14:28 Dose: 166.667 mls/hr Piperacillin/Tazobactam/Dextrose (Zosyn 3.375gm Ivpb (Premix)) 50 mls @ 100 mls /hr IVPB Q8H-IV [facility]US PRN Reason: Protocol Last Admin: 06/25/17 11:20 Dose: 100 mls/hr Insulin Aspart (Novolog Vial Sliding Scale -) 1 vial SQ ACHS [facility] PRN Reason: Protocol Last Admin: 06/25/17 11:40 Dose: Not Given Insulin Detemir (Levemir Vial) 15 units SQ AM [facility] Last Admin: 06/25/17 06:43 Dose: 15 unit Lidocaine (Lidoderm Patch -) 1 patch TP HS [facility] Last Admin: 06/24/17 21:25 Dose: 1 patch Lisinopril (Prinivil) 20 mg PO DAILY [facility] Last Admin: 06/25/17 10:20 Dose: 20 mg Metoclopramide HCl (Reglan Injection -) 10 mg IVPB Q8H PRN PRN Reason: NAUSEA AND/OR VOMITING Last Admin: 06/23/17 08:37 Dose: 10 mg Miscellaneous (Lidoderm Patch Removal) 1 each MC DAILY [facility] Last Admin: 06/25/17 11:24 Dose: 1 each Ondansetron HCl (Zofran Injection) 4 mg IVPB Q6H PRN PRN Reason: NAUSEA Last Admin: 06/23/17 12:12 Dose: 4 mg Oxycodone HCl (Roxicodone -) 10 mg PO Q4H PRN PRN Reason: PAIN Last Admin: 06/25/17 08:22 Dose: 10 mg - Objective Vital Signs: Vital Signs Temperature 98.6 F 06/25/17 14:39 Pulse Rate 83 06/25/17 14:39 Respiratory Rate 18 06/25/17 14:39 Blood Pressure 124/63 06/25/17 14:39 O2 Sat by Pulse Oximetry (%) 98 06/25/17 11:52 Constitutional: Yes: No Distress HENT: Yes: Atraumatic Neck: Yes: Supple Cardiovascular: Yes: Regular Rate and Rhythm Respiratory: Yes: CTA Bilaterally Gastrointestinal: Yes: Normal Bowel Sounds, Soft Genitourinary: Yes: WNL Extremities: Yes: Erythema, Other (Lt BKA, Left lateral leg wound with semipurulent drainage/tenderness) Wound/Incision: Yes: Draining (semipurulent) Neurological: Yes: Alert Labs: CBC, BMP 06/25/17 06:15 06/25/17 06:15 INR, PTT INR 1.07 (0.82-1.09) 06/17/17 00:05 Microbiology 06/23/17 22:00 Nares - Mrsa Screen - Left MRSA Screen - Final NO MRSA ISOLATED 06/23/17 22:00 Nares - Right Nares MRSA Screen - Final NO MRSA ISOLATED 06/17/17 00:30 Blood - Peripheral Venous Blood Culture - Final NO GROWTH AFTER 5 DAYS INCUBATION 06/17/17 00:05 Blood - Peripheral Venous Blood Culture - Final Lactobacillus Species 06/17/17 00:41 Stump Gram Stain - Final 06/17/17 00:41 Stump Wound Culture - Final Staphylococcus Aureus Streptococcus Viridans Yeast Like Organism 06/17/17 06:30 Urine - Urine Clean Catch Urine Culture - Final Staphylococcus Aureus Problem List - Problems (1) Diabetic neuropathy Code(s): E11.40 - TYPE 2 DIABETES MELLITUS WITH DIABETIC NEUROPATHY, UNSP Qualifiers: Diabetes mellitus type: type 2 (2) Hyperglycemia Code(s): R73.9 - HYPERGLYCEMIA, UNSPECIFIED (3) Leg wound, left Code(s): S81.802A - UNSPECIFIED OPEN WOUND, LEFT LOWER LEG, INITIAL ENCOUNTER (4) Sepsis Code(s): A41.9 - SEPSIS, UNSPECIFIED ORGANISM (5) Abscess and cellulitis Code(s): L03.90 - CELLULITIS, UNSPECIFIED L02.91 - CUTANEOUS ABSCESS, UNSPECIFIED (6) Gastroparesis due to DM Code(s): E11.43 - TYPE 2 DIABETES W DIABETIC AUTONOMIC (POLY)NEUROPATHY K31.84 - GASTROPARESIS (7) Hyperglycemia due to type 2 diabetes mellitus Code(s): E11.65 - TYPE 2 DIABETES MELLITUS WITH HYPERGLYCEMIA Qualifiers: Diabetes mellitus halfway insulin use: unspecified halfway insulin use status Qualified Code(s): E11.65 - Type 2 diabetes mellitus with hyperglycemia; E11.65 - Type 2 diabetes mellitus with hyperglycemia; E11.65 - Type 2 diabetes mellitus with hyperglycemia; E11.65 - Type 2 diabetes mellitus with hyperglycemia (8) Nausea & vomiting Code(s): R11.2 - NAUSEA WITH VOMITING, UNSPECIFIED Qualifiers: Vomiting Intractability: intractable Assessment/Plan Left BKA, Lateral leg draining abscess, possible myositis (MSSA, Strep viridans isolated) UTI - MSSA Leukocytosis -- lactic acid remains elevated, wbc stable at 16K -- Increase Zosyn dose to 4.5 G IV Q6h, D/C Vancomycin -- If improves plan to de-escalate antibiotic -- monitor wbc trend, repeat cbc in a.m. -- follow up pending Blood culture results -- needs tight glycemic control -- pain control - consider repeat CT of LLE and surgical re-evaluation if leukocytosis persists pt currently stable
--- NOTE | 2017-06-25 16:29 | PN ---
Progress Note (short form) - Note Progress Note: Subjective: The patient was seen and examined at the bedside, he has no complaints at this time Surgical re-evaluation as leukocytosis persisting Current Medications Generic Name Dose Route Start Last Admin Trade Name Julee PRN Reason Stop Dose Admin Acetaminophen 650 mg 06/20/17 14:04 06/24/17 06:21 Tylenol - PO 650 mg Q4H PRN Administration FEVER OR PAIN Collagenase 1 applic 06/21/17 10:00 06/23/17 09:04 Santyl - TP 1 applic DAILY [facility] Administration Diphenhydramine HCl 25 mg 06/20/17 14:04 Benadryl Injection - IVPB Q8H PRN NAUSEA Gabapentin 100 mg 06/20/17 16:45 06/24/17 06:19 Neurontin - PO 100 mg TID [facility] Administration Heparin Sodium (Porcine) 5,000 unit 06/23/17 22:00 06/24/17 15:05 Heparin - SQ 5,000 unit TID [facility] Administration Famotidine/Sodium Chloride 50 mls @ 100 mls/hr 06/20/17 22:00 06/24/17 11:47 Pepcid 20 Mg Premixed Ivpb - IVPB 100 mls/hr BID [facility] Administration Potassium Chloride 10 meq/ 1,005 mls @ 100 mls/hr 06/21/17 08:45 06/24/17 06:19 Dextrose/Sodium Chloride IVPB Not Given Q10H [facility] Vancomycin HCl 1,250 mg/ 250 mls @ 166.667 mls/hr 06/22/17 15:00 06/23/17 15:23 Dextrose IVPB 166.667 mls/hr DAILY@1500 [facility] Administration Protocol Piperacillin/Tazobactam/Dextrose 50 mls @ 100 mls/hr 06/23/17 00:54 06/24/17 01 :44 Zosyn 3.375gm Ivpb (Premix) IVPB 100 mls/hr Q8H-IV [facility] Administration Protocol Insulin Aspart 1 vial 06/20/17 16:30 06/24/17 12:36 Novolog Vial Sliding Scale - SQ Not Given ACHS [facility] Protocol Insulin Detemir 15 units 06/21/17 07:00 06/24/17 06:19 Levemir Vial SQ 15 unit AM [facility] Administration Lidocaine 1 patch 06/20/17 22:00 06/23/17 21:11 Lidoderm Patch - TP 1 patch HS [facility] Administration Lisinopril 20 mg 06/21/17 10:00 06/23/17 09:03 Prinivil PO 20 mg DAILY [facility] Administration Metoclopramide HCl 10 mg 06/20/17 14:04 06/23/17 08:37 Reglan Injection - IVPB 10 mg Q8H PRN Administration NAUSEA AND/OR VOMITING Miscellaneous 1 each 06/21/17 10:00 06/23/17 09:03 Lidoderm Patch Removal MC 1 each DAILY [facility] Administration Ondansetron HCl 4 mg 06/20/17 14:04 06/23/17 12:12 Zofran Injection IVPB 4 mg Q6H PRN Administration NAUSEA Oxycodone HCl 10 mg 06/23/17 14:21 06/24/17 11:08 Roxicodone - PO 10 mg Q4H PRN Administration PAIN Objective: Vital Signs Period Temp Pulse Resp BP Sys/Monet Pulse Ox Last 24 Hr 98.3 F-99.8 F 83-103 18-20 117-124/63-82 97-100 Physical Exam: Refused CBCD WBC 16.1 K/mm3 (4.0-10.0) H 06/25/17 06:15 RBC 4.30 M/mm3 (4.00-5.60) 06/25/17 06:15 Hgb 10.3 GM/dL (11.7-16.9) L 06/25/17 06:15 Hct 32.4 % (35.4-49) L 06/25/17 06:15 MCV 75.3 fl (80-96) L 06/25/17 06:15 MCHC 31.7 g/dl (32.0-35.9) L 06/25/17 06:15 RDW 16.8 % (11.9-15.9) H 06/25/17 06:15 Plt Count 634 K/MM3 (134-434) H 06/25/17 06:15 MPV 6.9 fl (7.5-11.1) L 06/25/17 06:15 CMP Sodium 140 mmol/L (136-145) 06/25/17 06:15 Potassium 3.6 mmol/L (3.5-5.1) 06/25/17 06:15 Chloride 109 mmol/L (98-107) H 06/25/17 06:15 Carbon Dioxide 21 mmol/L (21-32) 06/25/17 06:15 Anion Gap 10 (8-16) 06/25/17 06:15 BUN 4 mg/dL (7-18) L 06/25/17 06:15 Creatinine 0.8 mg/dL (0.7-1.3) 06/25/17 06:15 Creat Clearance w eGFR > 60 (>60) 06/25/17 06:15 Random Glucose 219 mg/dL (74-106) H 06/25/17 06:15 Calcium 6.9 mg/dL (8.5-10.1) L* 06/25/17 06:15 Total Bilirubin 0.5 mg/dL (0.2-1.0) D 06/25/17 06:15 AST 9 U/L (15-37) L 06/25/17 06:15 ALT 6 U/L (12-78) L 06/25/17 06:15 Alkaline Phosphatase 528 U/L (45-117) H 06/25/17 06:15 Total Protein 4.9 g/dl (6.4-8.2) L 06/25/17 06:15 Albumin 1.2 g/dl (3.4-5.0) L 06/25/17 06:15 CARDIAC ENZYMES Creatine Kinase 69 IU/L (39-308) 06/17/17 12:52 Troponin I < 0.02 ng/ml (0.00-0.05) 06/17/17 00:05 Microbiology 06/24/17 16:00 Blood - Peripheral Venous Blood Culture - Preliminary NO GROWTH OBTAINED AFTER 24 HOURS, INCUBATION TO CONTINUE FOR 4 DAYS. 06/24/17 16:00 Blood - Peripheral Venous Blood Culture - Preliminary NO GROWTH OBTAINED AFTER 24 HOURS, INCUBATION TO CONTINUE FOR 4 DAYS. 06/23/17 22:00 Nares - Mrsa Screen - Left MRSA Screen - Final NO MRSA ISOLATED 06/23/17 22:00 Nares - Right Nares MRSA Screen - Final NO MRSA ISOLATED 06/17/17 00:30 Blood - Peripheral Venous Blood Culture - Final NO GROWTH AFTER 5 DAYS INCUBATION 06/17/17 00:05 Blood - Peripheral Venous Blood Culture - Final Lactobacillus Species 06/17/17 00:41 Stump Gram Stain - Final 06/17/17 00:41 Stump Wound Culture - Final Staphylococcus Aureus Streptococcus Viridans Yeast Like Organism 06/17/17 06:30 Urine - Urine Clean Catch Urine Culture - Final Staphylococcus Aureus Assessment: This is a 47 year old male with PMHx of DM, multiple soft tissue infections, hx of MRSA, s/p left BKA who presented to the ED with worsening posterior left leg pain x1 week. Plan: 1) ID: Sepsis 2/2 diabetic wound - WBC stable at 16.1 today - Afebrile - Cultures as above - Continue Zosyn - Vancomycin discontinued 06/25 - Apppreciate ID consult Left lower extremity pain - Per vascular no acute pathology can be seen - Awaiting reevluation as continues to have leukocytosis 2) Endocrine: IDDM - Levemir 15u sq AM - BGM ACHS - ISS ACHS 3) F/E/N: - Diabetic diet, soft: patient refusing to eat - Monitor electrolytes - Hypokalemia: resolved - Hypoalbuminemia 4) Prophylaxis: - Heparin 5,000u sq tid - PT 5) Dispo: - Requires continued inpatient care CODE STATUS: FULL CODE Visit type - Emergency Visit Emergency Visit: Yes ED Registration Date: 06/17/17 Care time: The patient presented to the Emergency Department on the above date and was hospitalized for further evaluation of their emergent condition. - New Patient This patient is new to me today: No - Critical Care Critical Care patient: No
[2017-06-25] MEDS: LIDOCAINE 5% TOPICAL PATCH TP SCH (22:28)
[2017-06-25] MEDS: PIPERACILLIN/TAZOB 4.5 GM/100 ML PREMIX BAG IVPB SCH (23:05)
[2017-06-26] MEDS: ACETAMINOPHEN 325 MG TABLET (FP) PO PRN ×4 (00:12→19:24)
[2017-06-26] MEDS: POTASSIUM CHLORIDE 10 MEQ in DEXTROSE 5%-NORMAL SALINE 1,000 ML IVPB SCH ×3 (00:16→14:50)
[2017-06-26] MEDS: PIPERACILLIN/TAZOB 4.5 GM/100 ML PREMIX BAG IVPB SCH ×2 (03:48→12:00)
[2017-06-26] MEDS: HEPARIN NA (PORCINE) 5,000 UNITS/ML 1ML VIAL SQ SCH ×3 (06:53→22:21)
[2017-06-26] MEDS: GABAPENTIN 100 MG CAPSULE (FP) PO SCH ×3 (06:53→22:20)
[2017-06-26] MEDS: oxyCODONE HCL 5 MG TABLET PO PRN ×3 (06:53→19:23)
[2017-06-26] MEDS: INSULIN DETEMIR 100 UNITS/ML MDV SQ SCH (06:54)
[2017-06-26] MEDS: INSULIN SLIDING SCALE (NOVOLOG) 1 VIAL SQ SCH ×4 (07:18→22:21)
[2017-06-26 07:25] LABS: BASOPHIL 0.2 % (0-2.0); EOSINOPHIL 1.4 % (0-4.5); MCH 23.9 pg (25.7-33.7); MCHC 31.9 g/dl (32.0-35.9); MEAN CELL VOLUME 74.9 fl (80-96); MEAN PLT VOLUME 6.8 fl (7.5-11.1); NEUTROPHILS 84.5 % (42.8-82.8); PLATELET COUNT 617 K/MM3 (134-434); RDW 17.1 % (11.9-15.9); WHITE BLOOD COUNT 13.8 K/mm3 (4.0-10.0)
[2017-06-26 07:53] LABS: ANION GAP 13 (8-16); CO2 19 mmol/L (21-32); GLUCOSE,RANDOM 144 mg/dL (74-106)
[2017-06-26 07:56] LABS: ALK PHOS 457 U/L (45-117); BILIRUBIN,TOTAL 0.6 mg/dL (0.2-1.0); CREATININE 0.7 mg/dL (0.7-1.3); SGOT/AST 8 U/L (15-37); SGPT/ALT < 6 U/L (12-78); TOT PROT 4.6 g/dl (6.4-8.2)
[2017-06-26 08:14] LABS: CALCIUM 6.6 mg/dL (8.5-10.1)
[2017-06-26] MEDS ORDERED: POTASSIUM CHLORIDE TABS 20 MEQ TABLET.ER (FP) PO ONE (09:45)
[2017-06-26] MEDS: FAMOTIDINE 20 MG/50 ML IVPB 50 ML IVPB SCH ×2 (10:37→22:20)
[2017-06-26] MEDS: LISINOPRIL 20 MG TABLET (FP) PO SCH (10:38)
[2017-06-26] MEDS: LIDOCAINE PATCH REMOVAL MC SCH (10:38)
[2017-06-26] MEDS: COLLAGENASE CLOSTRIDIUM HIST. 30 GRAMS TUBE TP SCH (10:39)
--- NOTE | 2017-06-26 12:12 | PN ---
Progress Note, Physician History of Present Illness: pain issues patient getting better leg improving - Current Medication List Current Medications: Active Medications Acetaminophen (Tylenol -) 650 mg PO Q4H PRN PRN Reason: FEVER OR PAIN Last Admin: 06/26/17 06:53 Dose: 650 mg Collagenase (Santyl -) 1 applic TP DAILY [facility] Last Admin: 06/26/17 10:39 Dose: 1 applic Diphenhydramine HCl (Benadryl Injection -) 25 mg IVPB Q8H PRN PRN Reason: NAUSEA Gabapentin (Neurontin -) 100 mg PO TID [facility] Last Admin: 06/26/17 06:53 Dose: 100 mg Heparin Sodium (Porcine) (Heparin -) 5,000 unit SQ TID [facility] Last Admin: 06/26/17 06:53 Dose: 5,000 unit Famotidine/Sodium Chloride (Pepcid 20 Mg Premixed Ivpb -) 50 mls @ 100 mls/hr IVPB BID [facility] Last Admin: 06/26/17 10:37 Dose: 100 mls/hr Potassium Chloride 10 meq/ (Dextrose/Sodium Chloride) 1,005 mls @ 100 mls/hr IVPB Q10H [facility] Last Admin: 06/26/17 10:40 Dose: Not Given Insulin Aspart (Novolog Vial Sliding Scale -) 1 vial SQ ACHS [facility] PRN Reason: Protocol Last Admin: 06/26/17 11:23 Dose: Not Given Insulin Detemir (Levemir Vial) 15 units SQ AM [facility] Last Admin: 06/26/17 06:54 Dose: 15 unit Lidocaine (Lidoderm Patch -) 1 patch TP HS [facility] Last Admin: 06/25/17 22:28 Dose: 1 patch Lisinopril (Prinivil) 20 mg PO DAILY [facility] Last Admin: 06/26/17 10:38 Dose: 20 mg Metoclopramide HCl (Reglan Injection -) 10 mg IVPB Q8H PRN PRN Reason: NAUSEA AND/OR VOMITING Last Admin: 06/23/17 08:37 Dose: 10 mg Miscellaneous (Lidoderm Patch Removal) 1 each MC DAILY [facility] Last Admin: 06/26/17 10:38 Dose: 1 each Ondansetron HCl (Zofran Injection) 4 mg IVPB Q6H PRN PRN Reason: NAUSEA Last Admin: 06/23/17 12:12 Dose: 4 mg Oxycodone HCl (Roxicodone -) 10 mg PO Q4H PRN PRN Reason: PAIN Last Admin: 06/26/17 06:53 Dose: 10 mg Piperacillin/Tazobactam/Dextrose (Zosyn 4.5gm Ivpb (Premix)) 4.5 gm IVPB Q6H- IV [facility] Last Admin: 06/26/17 03:48 Dose: 4.5 gm - Objective Vital Signs: Vital Signs Temperature 98.2 F 06/26/17 10:00 Pulse Rate 98 H 06/26/17 10:00 Respiratory Rate 20 06/26/17 10:00 Blood Pressure 135/79 06/26/17 10:00 O2 Sat by Pulse Oximetry (%) 98 06/25/17 21:00 Constitutional: Yes: No Distress, Calm Cardiovascular: Yes: Regular Rate and Rhythm Respiratory: Yes: Regular, CTA Bilaterally Gastrointestinal: Yes: Normal Bowel Sounds, Soft Musculoskeletal: Yes: Other Extremities: Yes: Erythema (improving), Other Wound/Incision: Yes: Dressing Dry and Intact Neurological: Yes: Alert, Oriented Psychiatric: Yes: Alert Labs: CBC, BMP 06/26/17 05:35 06/26/17 05:35 INR, PTT INR 1.07 (0.82-1.09) 06/17/17 00:05 Assessment/Plan Problem List - Problems (1) Sepsis Code(s): A41.9 - SEPSIS, UNSPECIFIED ORGANISM (2) Abscess and cellulitis Code(s): L03.90 - CELLULITIS, UNSPECIFIED L02.91 - CUTANEOUS ABSCESS, UNSPECIFIED (3) Cellulitis and abscess of left leg Code(s): L03.116 - CELLULITIS OF LEFT LOWER LIMB L02.416 - CUTANEOUS ABSCESS OF LEFT LOWER LIMB (4) Intractable vomiting with nausea Code(s): R11.2 - NAUSEA WITH VOMITING, UNSPECIFIED Qualifiers: Vomiting type: unspecified Qualified Code(s): R11.2 - Nausea with vomiting, unspecified; R11.2 - Nausea with vomiting, unspecified (5) Noncompliance with diabetes treatment Code(s): Z91.19 - PATIENT'S NONCOMPLIANCE W OTH MEDICAL TREATMENT AND REGIMEN (6) Diabetic ulcer of lower extremity Code(s): E11.622 - TYPE 2 DIABETES MELLITUS WITH OTHER SKIN ULCER L97.909 - NON-PRS CHRONIC ULC UNSP PRT OF UNSP LOW LEG W UNSP SEVERITY lactic acidosis leukocytosis uti plan continue abx wound care patient improving rest as per primary
--- NOTE | 2017-06-26 13:49 | PN ---
Physical Exam: SUBJECTIVE: Patient seen and examined. He vomits with pain medication, he is refusing to eat the food here he wants a regular diet, however he has no teeth OBJECTIVE: Vital Signs Period Temp Pulse Resp BP Sys/Monet Pulse Ox Last 24 Hr 98 F-100.0 F 83-98 18-20 124-148/63-79 98 PE Neuro: alert, awake, cn 2-12intact Heent: Pulm: clear anteriorly Abd: s nd + vomiting Ext: LLE BKA, lateral wound cdi + tenderness Laboratory Results - last 24 hr 06/25/17 06/25/17 06/26/17 16:57 22:31 05:35 WBC 13.8 H RBC 3.79 L Hgb 9.1 L D Hct 28.4 L MCV 74.9 L MCH 23.9 L MCHC 31.9 L RDW 17.1 H Plt Count 617 H MPV 6.8 L Neutrophils % 84.5 H Lymphocytes % 6.0 L D Monocytes % 7.9 Eosinophils % 1.4 Basophils % 0.2 Sodium Potassium Chloride Carbon Dioxide Anion Gap BUN Creatinine Creat Clearance w eGFR POC Glucometer 126 113 Random Glucose Calcium Total Bilirubin AST ALT Alkaline Phosphatase Total Protein Albumin 06/26/17 06/26/17 06/26/17 05:35 07:17 11:22 WBC RBC Hgb Hct MCV MCH MCHC RDW Plt Count MPV Neutrophils % Lymphocytes % Monocytes % Eosinophils % Basophils % Sodium 141 Potassium 3.2 L Chloride 109 H Carbon Dioxide 19 L Anion Gap 13 BUN 3 L D Creatinine 0.7 Creat Clearance w eGFR > 60 POC Glucometer 161 148 Random Glucose 144 H D Calcium 6.6 L* Total Bilirubin 0.6 AST 8 L ALT < 6 L Alkaline Phosphatase 457 H Total Protein 4.6 L Albumin 1.0 L Active Medications Generic Name Dose Route Start Last Admin Trade Name Freq PRN Reason Stop Dose Admin Acetaminophen 650 mg 06/20/17 14:04 06/26/17 12:53 Tylenol - PO 650 mg Q4H PRN Administration FEVER OR PAIN Collagenase 1 applic 06/21/17 10:00 06/26/17 10:39 Santyl - TP 1 applic DAILY [facility] Administration Diphenhydramine HCl 25 mg 06/20/17 14:04 Benadryl Injection - IVPB Q8H PRN NAUSEA Gabapentin 100 mg 06/20/17 16:45 06/26/17 13:29 Neurontin - PO 100 mg TID JESUS Administration Heparin Sodium (Porcine) 5,000 unit 06/23/17 22:00 06/26/17 13:29 Heparin - SQ 5,000 unit TID [facility]ESUS Administration Famotidine/Sodium Chloride 50 mls @ 100 mls/hr 06/20/17 22:00 06/26/17 10:37 Pepcid 20 Mg Premixed Ivpb - IVPB 100 mls/hr BID [facility] Administration Potassium Chloride 10 meq/ 1,005 mls @ 100 mls/hr 06/21/17 08:45 06/26/17 10:40 Dextrose/Sodium Chloride IVPB Not Given Q10H [facility] Piperacillin/Tazobactam/Dextrose 100 mls @ 200 mls/hr 06/26/17 16:00 Zosyn 4.5gm Ivpb (Premix) IVPB 07/02/17 15:29 Q6H-IV [facility] Insulin Aspart 1 vial 06/20/17 16:30 06/26/17 11:23 Novolog Vial Sliding Scale - SQ Not Given ACHS [facility] Protocol Insulin Detemir 15 units 06/21/17 07:00 06/26/17 06:54 Levemir Vial SQ 15 unit AM [facility] Administration Lidocaine 1 patch 06/20/17 22:00 06/25/17 22:28 Lidoderm Patch - TP 1 patch HS [facility]ESUS Administration Lisinopril 20 mg 06/21/17 10:00 06/26/17 10:38 Prinivil PO 20 mg DAILY [facility] Administration Metoclopramide HCl 10 mg 06/20/17 14:04 06/23/17 08:37 Reglan Injection - IVPB 10 mg Q8H PRN Administration NAUSEA AND/OR VOMITING Miscellaneous 1 each 06/21/17 10:00 06/26/17 10:38 Lidoderm Patch Removal MC 1 each DAILY [facility] Administration Ondansetron HCl 4 mg 06/20/17 14:04 06/23/17 12:12 Zofran Injection IVPB 4 mg Q6H PRN Administration NAUSEA Oxycodone HCl 10 mg 06/23/17 14:21 06/26/17 12:50 Roxicodone - PO 10 mg Q4H PRN Administration PAIN Abx: - Vancomycin discontinued 06/25 Assessment: 47 year old male with PMHx of DM, multiple soft tissue infections, hx of MRSA, s/p left BKA admitted with worsening posterior left leg pain x1 week. Plan: 1. Sepsis 2/2 diabetic wound - Leukocytosis improving - Continue increased zosyn dose 4.5mg q8 - - Will need abx ~3-4 more days per ID 2. Left lower extremity pain - Per vascular no acute pathology can be seen 3. HTN - Controlled - Started lisinopril 20mg daily 4. Uncontrolled DM II - Levemir 15u sq AM - BGM, ISS ACHS 5. Hypoalbuminemia - Diabetic diet, soft: patient refusing to eat hospital food - Poor intake, continue IVF d5 ns @ 83cc/hr 6. Hypokalemia - Replete w/ addition kdur 40meq x1 7. Hypocalcemia - Corrected ca 9 8. Prophylaxis - Heparin 5,000u sq tid - PT Visit type - Emergency Visit Emergency Visit: Yes ED Registration Date: 06/17/17 Care time: The patient presented to the Emergency Department on the above date and was hospitalized for further evaluation of their emergent condition. - New Patient This patient is new to me today: No - Critical Care Critical Care patient: No - Discharge Referral Referred to [facility] Med P.C.: No
[2017-06-26] MEDS ORDERED: METOCLOPRAMIDE HCL INJECTION 10 MG/2 ML VIAL IVPB PRN (13:52)
[2017-06-26] MEDS: PIPERACILLIN/TAZOB 4.5 GM 100 ML IVPB SCH ×2 (16:38→20:28)
[2017-06-26] MEDS: LIDOCAINE 5% TOPICAL PATCH TP SCH (22:21)
[2017-06-27] MEDS: oxyCODONE HCL 5 MG TABLET PO PRN ×3 (00:40→17:10)
[2017-06-27] MEDS: ACETAMINOPHEN 325 MG TABLET (FP) PO PRN ×2 (00:43→06:44)
[2017-06-27] MEDS: POTASSIUM CHLORIDE 10 MEQ in DEXTROSE 5%-NORMAL SALINE 1,000 ML IVPB SCH ×3 (02:00→12:19)
[2017-06-27] MEDS: PIPERACILLIN/TAZOB 4.5 GM 100 ML IVPB SCH ×4 (02:42→23:25)
[2017-06-27] MEDS: INSULIN SLIDING SCALE (NOVOLOG) 1 VIAL SQ SCH ×4 (06:37→22:48)
[2017-06-27] MEDS: GABAPENTIN 100 MG CAPSULE (FP) PO SCH ×3 (06:38→22:47)
[2017-06-27] MEDS: INSULIN DETEMIR 100 UNITS/ML MDV SQ SCH (06:38)
[2017-06-27] MEDS: HEPARIN NA (PORCINE) 5,000 UNITS/ML 1ML VIAL SQ SCH ×3 (06:38→22:47)
[2017-06-27 07:48] LABS: BASOPHIL 0.4 % (0-2.0); EOSINOPHIL 1.7 % (0-4.5); MCH 24.3 pg (25.7-33.7); MCHC 32.5 g/dl (32.0-35.9); MEAN CELL VOLUME 74.8 fl (80-96); MEAN PLT VOLUME 6.7 fl (7.5-11.1); NEUTROPHILS 83.8 % (42.8-82.8); PLATELET COUNT 709 K/MM3 (134-434); RDW 16.8 % (11.9-15.9); WHITE BLOOD COUNT 11.5 K/mm3 (4.0-10.0)
[2017-06-27] MEDS ORDERED: PT OWN MED DRAWER 7, Y5N ONE ×2 (07:58→09:11)
[2017-06-27 08:12] LABS: ALBUMIN 1.1 g/dl (3.4-5.0); ANION GAP 9 (8-16); CO2 21 mmol/L (21-32); CREATININE 0.7 mg/dL (0.7-1.3); GLUCOSE,RANDOM 158 mg/dL (74-106); MAGNESIUM 1.5 mg/dL (1.8-2.4); SGOT/AST 10 U/L (15-37); SGPT/ALT 6 U/L (12-78)
[2017-06-27 08:14] LABS: ALK PHOS 476 U/L (45-117); BILIRUBIN,TOTAL 0.4 mg/dL (0.2-1.0); PHOSPHOROUS 2.2 mg/dL (2.5-4.9); TOT PROT 4.8 g/dl (6.4-8.2)
[2017-06-27] MEDS: LISINOPRIL 20 MG TABLET (FP) PO SCH (09:13)
[2017-06-27] MEDS: LIDOCAINE PATCH REMOVAL MC SCH (09:14)
[2017-06-27 09:18] LABS: CALCIUM 6.9 mg/dL (8.5-10.1)
[2017-06-27] MEDS: COLLAGENASE CLOSTRIDIUM HIST. 30 GRAMS TUBE TP SCH (09:19)
--- NOTE | 2017-06-27 09:45 | PN ---
Progress Note, Physician History of Present Illness: looks comfortable no issues - Current Medication List Current Medications: Active Medications Acetaminophen (Tylenol -) 650 mg PO Q4H PRN PRN Reason: FEVER OR PAIN Last Admin: 06/27/17 06:44 Dose: 650 mg Collagenase (Santyl -) 1 applic TP DAILY [facility] Last Admin: 06/27/17 09:19 Dose: 1 applic Diphenhydramine HCl (Benadryl Injection -) 25 mg IVPB Q8H PRN PRN Reason: NAUSEA Gabapentin (Neurontin -) 100 mg PO TID [facility] Last Admin: 06/27/17 06:38 Dose: 100 mg Heparin Sodium (Porcine) (Heparin -) 5,000 unit SQ TID [facility] Last Admin: 06/27/17 06:38 Dose: 5,000 unit Famotidine/Sodium Chloride (Pepcid 20 Mg Premixed Ivpb -) 50 mls @ 100 mls/hr IVPB BID [facility] Last Admin: 06/26/17 22:20 Dose: 100 mls/hr Piperacillin/Tazobactam/Dextrose (Zosyn 4.5gm Ivpb (Premix)) 100 mls @ 200 mls/ hr IVPB Q6H-IV [facility] Stop: 07/02/17 15:29 Last Admin: 06/27/17 09:13 Dose: 200 mls/hr Potassium Chloride 10 meq/ (Dextrose/Sodium Chloride) 1,005 mls @ 83 mls/hr IVPB Q10H [facility] Last Admin: 06/27/17 02:45 Dose: 83 mls/hr Insulin Aspart (Novolog Vial Sliding Scale -) 1 vial SQ ACHS [facility] PRN Reason: Protocol Last Admin: 06/27/17 06:37 Dose: Not Given Insulin Detemir (Levemir Vial) 15 units SQ AM [facility] Last Admin: 06/27/17 06:38 Dose: 15 unit Lidocaine (Lidoderm Patch -) 1 patch TP HS [facility] Last Admin: 06/26/17 22:21 Dose: 1 patch Lisinopril (Prinivil) 20 mg PO DAILY [facility] Last Admin: 06/27/17 09:13 Dose: 20 mg Metoclopramide HCl (Reglan Injection -) 10 mg IVPB Q8H PRN PRN Reason: NAUSEA AND/OR VOMITING Last Admin: 06/27/17 03:58 Dose: 10 mg Miscellaneous (Lidoderm Patch Removal) 1 each MC DAILY [facility] Last Admin: 06/27/17 09:14 Dose: 1 each Ondansetron HCl (Zofran Injection) 4 mg IVPB Q6H PRN PRN Reason: NAUSEA Last Admin: 06/23/17 12:12 Dose: 4 mg Oxycodone HCl (Roxicodone -) 10 mg PO Q4H PRN PRN Reason: PAIN Last Admin: 06/27/17 06:43 Dose: 10 mg - Objective Vital Signs: Vital Signs Temperature 98.7 F 06/27/17 09:09 Pulse Rate 91 H 06/27/17 09:09 Respiratory Rate 18 06/27/17 09:09 Blood Pressure 126/76 06/27/17 09:09 O2 Sat by Pulse Oximetry (%) 97 06/26/17 21:00 Constitutional: Yes: No Distress, Calm Cardiovascular: Yes: Regular Rate and Rhythm Respiratory: Yes: Regular Gastrointestinal: Yes: Normal Bowel Sounds, Soft Musculoskeletal: Yes: Other Extremities: Yes: Erythema, Other Neurological: Yes: Alert, Oriented Psychiatric: Yes: Alert, Oriented Labs: CBC, BMP 06/27/17 06:00 06/27/17 06:00 INR, PTT INR 1.07 (0.82-1.09) 06/17/17 00:05 Assessment/Plan Problem List - Problems (1) Sepsis Code(s): A41.9 - SEPSIS, UNSPECIFIED ORGANISM (2) Abscess and cellulitis Code(s): L03.90 - CELLULITIS, UNSPECIFIED L02.91 - CUTANEOUS ABSCESS, UNSPECIFIED (3) Cellulitis and abscess of left leg Code(s): L03.116 - CELLULITIS OF LEFT LOWER LIMB L02.416 - CUTANEOUS ABSCESS OF LEFT LOWER LIMB (4) Intractable vomiting with nausea Code(s): R11.2 - NAUSEA WITH VOMITING, UNSPECIFIED Qualifiers: Vomiting type: unspecified Qualified Code(s): R11.2 - Nausea with vomiting, unspecified; R11.2 - Nausea with vomiting, unspecified (5) Noncompliance with diabetes treatment Code(s): Z91.19 - PATIENT'S NONCOMPLIANCE W OTH MEDICAL TREATMENT AND REGIMEN (6) Diabetic ulcer of lower extremity Code(s): E11.622 - TYPE 2 DIABETES MELLITUS WITH OTHER SKIN ULCER L97.909 - NON-PRS CHRONIC ULC UNSP PRT OF UNSP LOW LEG W UNSP SEVERITY lactic acidosis leukocytosis uti plan continue abx wound care patient improving rest as per primary wbc trending down
[2017-06-27] MEDS: FAMOTIDINE 20 MG/50 ML IVPB 50 ML IVPB SCH ×2 (10:37→23:45)
[2017-06-27] MEDS ORDERED: D5-1/2NS+10 MEQ KCL - 1,000 ML IV SCH ×2 (12:30→13:49)
[2017-06-27] MEDS: ONDANSETRON 4 MG/2 ML VIAL IVPB PRN (15:25)
[2017-06-27] MEDS ORDERED: MAGNESIUM SULF 50% (8.12 MEQ/2 ML-1 GM VIAL) IVPB ONE (15:29)
--- NOTE | 2017-06-27 15:35 | PN ---
Physical Exam: SUBJECTIVE: Patient seen and examined. He becomes very agitated and anxious with small ADLS or after speaking w , he vomits. Still refusing hospital food. OBJECTIVE: Vital Signs Period Temp Pulse Resp BP Sys/Monet Pulse Ox Last 24 Hr 97.4 F-98.7 F 79-94 18-20 126-157/74-85 97-98 PE Neuro: alert, awake, cn 2-12intact Pulm: clear anteriorly CV: s1 s2 rrr no mrg Abd: s nd nt Ext: LLE BKA, lateral wound cdi + posterior thigh tenderness Laboratory Results - last 24 hr 06/27/17 06/27/17 06/27/17 06:00 06:00 06:36 WBC 11.5 H RBC 3.82 L Hgb 9.3 L Hct 28.6 L MCV 74.8 L MCH 24.3 L MCHC 32.5 RDW 16.8 H Plt Count 709 H MPV 6.7 L Neutrophils % 83.8 H Lymphocytes % 6.0 L Monocytes % 8.1 Eosinophils % 1.7 Basophils % 0.4 Sodium 142 Potassium 3.3 L Chloride 112 H Carbon Dioxide 21 Anion Gap 9 BUN 3 L Creatinine 0.7 Creat Clearance w eGFR > 60 POC Glucometer 154 Random Glucose 158 H Calcium 6.9 L* Phosphorus 2.2 L Magnesium 1.5 L Total Bilirubin 0.4 D AST 10 L D ALT 6 L Alkaline Phosphatase 476 H Total Protein 4.8 L Albumin 1.1 L Active Medications Generic Name Dose Route Start Last Admin Trade Name Freq PRN Reason Stop Dose Admin Acetaminophen 650 mg 06/20/17 14:04 06/27/17 06:44 Tylenol - PO 650 mg Q4H PRN Administration FEVER OR PAIN Collagenase 1 applic 06/21/17 10:00 06/27/17 09:19 Santyl - TP 1 applic DAILY [facility] Administration Diphenhydramine HCl 25 mg 06/20/17 14:04 Benadryl Injection - IVPB Q8H PRN NAUSEA Gabapentin 100 mg 06/20/17 16:45 06/27/17 15:02 Neurontin - PO 100 mg TID [facility] Administration Heparin Sodium (Porcine) 5,000 unit 06/23/17 22:00 06/27/17 15:02 Heparin - SQ 5,000 unit TID [facility] Administration Famotidine/Sodium Chloride 50 mls @ 100 mls/hr 06/20/17 22:00 06/27/17 10:37 Pepcid 20 Mg Premixed Ivpb - IVPB 100 mls/hr BID [facility] Administration Piperacillin/Tazobactam/Dextrose 100 mls @ 200 mls/hr 06/26/17 16:00 06/27/17 15:01 Zosyn 4.5gm Ivpb (Premix) IVPB 07/02/17 15:29 200 mls/hr Q6H-IV [facility] Administration Potassium Chloride/Dextrose/Sod Cl 1,000 mls @ 100 mls/hr 06/27/17 13:49 D5-1/2ns+10 Meq Kcl - IV Q10H [facility] Potassium Phosphate 15 mm/ 255 mls @ 62.5 mls/hr 06/27/17 15:29 Dextrose IVPB 06/27/17 19:33 ONCE ONE Insulin Aspart 1 vial 06/20/17 16:30 06/27/17 12:18 Novolog Vial Sliding Scale - SQ Not Given ACHS [facility] Protocol Insulin Detemir 15 units 06/21/17 07:00 06/27/17 06:38 Levemir Vial SQ 15 unit AM [facility] Administration Lidocaine 1 patch 06/20/17 22:00 06/26/17 22:21 Lidoderm Patch - TP 1 patch HS [facility] Administration Lisinopril 20 mg 06/21/17 10:00 06/27/17 09:13 Prinivil PO 20 mg DAILY [facility] Administration Lorazepam 1 mg 06/27/17 15:30 Ativan Injection - IVPUSH TID PRN ANXIETY Magnesium Sulfate 2 gm 06/27/17 15:29 Magnesium Sulfate IVPB 06/27/17 15:30 ONCE ONE Metoclopramide HCl 10 mg 06/26/17 13:52 06/27/17 03:58 Reglan Injection - IVPB 10 mg Q8H PRN Administration NAUSEA AND/OR VOMITING Miscellaneous 1 each 06/21/17 10:00 06/27/17 09:14 Lidoderm Patch Removal MC 1 each DAILY [facility] Administration Ondansetron HCl 4 mg 06/20/17 14:04 06/27/17 15:25 Zofran Injection IVPB 4 mg Q6H PRN Administration NAUSEA Oxycodone HCl 10 mg 06/26/17 18:52 06/27/17 06:43 Roxicodone - PO 10 mg Q4H PRN Administration PAIN Potassium Chloride 40 meq 06/27/17 15:29 K-Dur - PO 06/27/17 15:30 ONCE ONE Abx: - Vancomycin discontinued 06/25 Assessment: 47 year old male with PMHx of DM, multiple soft tissue infections, hx of MRSA, s/p left BKA admitted with worsening posterior left leg pain x1 week. Plan: 1. Sepsis 2/2 diabetic wound - Leukocytosis improving - Continue increased zosyn dose 4.5mg q8 - Will need abx ~3 more days per ID 2. Left lower extremity pain - Per vascular no acute pathology can be seen 3. HTN - Controlled - Started lisinopril 20mg daily 4. Uncontrolled DM II - Levemir 15u sq AM - BGM, ISS ACHS 5. Hypoalbuminemia - Diabetic diet, soft: patient refusing to eat hospital food - Poor intake, continue IVF d5 ns @ 100cc/hr 6. Hypokalemia - Resolved 7. Hypocalcemia - Corrected ca 9 8. Hypophosphatemia - Replete 15mmol IV phos x1 9. Hypomagnesemia - Replete mg 2gm x1 10. Thrombocytosis - Likely reactive due infective/inflammation - Continue to monitor 11. Prophylaxis - Heparin 5,000u sq tid - PT w/ walker 12. Hypoglycemia - Refusing OJ, Milk - Will drink gingerale - D50 amp prn Visit type - Emergency Visit Emergency Visit: Yes ED Registration Date: 06/17/17 Care time: The patient presented to the Emergency Department on the above date and was hospitalized for further evaluation of their emergent condition. - New Patient This patient is new to me today: No - Critical Care Critical Care patient: No
[2017-06-27] MEDS ORDERED: DEXTROSE 50%-WATER - 25 GM/50 ML VIAL IVPUSH PRN (16:05)
[2017-06-27] MEDS ORDERED: POTASSIUM CHLORIDE TABS 20 MEQ TABLET.ER (FP) PO ONE (16:30)
[2017-06-27] MEDS ORDERED: POTASSIUM PHOSPHATE 15 MM in DEXTROSE 5%-WATER - 250 ML IVPB ONE (17:00)
[2017-06-27] MEDS: D5-1/2NS+20 MEQ KCL - 1,000 ML IV SCH (17:11)
[2017-06-27] MEDS: LIDOCAINE 5% TOPICAL PATCH TP SCH (22:47)
[2017-06-28] MEDS: PIPERACILLIN/TAZOB 4.5 GM 100 ML IVPB SCH ×4 (02:40→21:57)
[2017-06-28] MEDS: oxyCODONE HCL 5 MG TABLET PO PRN ×4 (04:12→21:57)
[2017-06-28] MEDS: GABAPENTIN 100 MG CAPSULE (FP) PO SCH ×3 (06:30→21:55)
[2017-06-28] MEDS: INSULIN SLIDING SCALE (NOVOLOG) 1 VIAL SQ SCH ×4 (06:31→22:52)
[2017-06-28] MEDS: INSULIN DETEMIR 100 UNITS/ML MDV SQ SCH (06:31)
[2017-06-28] MEDS: HEPARIN NA (PORCINE) 5,000 UNITS/ML 1ML VIAL SQ SCH ×3 (06:31→21:56)
[2017-06-28] MEDS ORDERED: SODIUM CHLORIDE 500 ML IV STA (08:15)
[2017-06-28] MEDS ORDERED: PT OWN MED DRAWER 7, Y5N ONE (09:10)
[2017-06-28] MEDS: FAMOTIDINE 20 MG/50 ML IVPB 50 ML IVPB SCH ×2 (09:24→23:15)
[2017-06-28] MEDS: LISINOPRIL 20 MG TABLET (FP) PO SCH (09:25)
[2017-06-28] MEDS: ACETAMINOPHEN 325 MG TABLET (FP) PO PRN ×3 (09:26→21:58)
[2017-06-28] MEDS: LIDOCAINE PATCH REMOVAL MC SCH (09:27)
[2017-06-28] MEDS: COLLAGENASE CLOSTRIDIUM HIST. 30 GRAMS TUBE TP SCH (09:33)
[2017-06-28 11:56] LABS: BASOPHIL 0.6 % (0-2.0); EOSINOPHIL 1.6 % (0-4.5); MCH 23.9 pg (25.7-33.7); MCHC 31.6 g/dl (32.0-35.9); MEAN CELL VOLUME 75.7 fl (80-96); MEAN PLT VOLUME 6.6 fl (7.5-11.1); NEUTROPHILS 81.9 % (42.8-82.8); PLATELET COUNT 742 K/MM3 (134-434); RDW 16.7 % (11.9-15.9); WHITE BLOOD COUNT 11.2 K/mm3 (4.0-10.0)
[2017-06-28 12:23] LABS: ANION GAP 7 (8-16); CALCIUM 7.1 mg/dL (8.5-10.1); CO2 22 mmol/L (21-32); CREATININE 0.8 mg/dL (0.7-1.3); GLUCOSE,RANDOM 125 mg/dL (74-106); MAGNESIUM 1.9 mg/dL (1.8-2.4); PHOSPHOROUS 2.2 mg/dL (2.5-4.9)
[2017-06-28] MEDS: D5-1/2NS+20 MEQ KCL - 1,000 ML IV SCH ×2 (13:27→16:57)
--- NOTE | 2017-06-28 13:30 | PN ---
Physical Exam: SUBJECTIVE: Patient seen and examined. He is feeling better, but his L thigh still has increased pain, it difficult for him to transfer to side of bed OBJECTIVE: Vital Signs Period Temp Pulse Resp BP Sys/Monet Pulse Ox Last 24 Hr 97.4 F-98.5 F 81-96 18-20 120-145/64-81 99 PE Neuro: alert, awake, cn 2-12 intact Heent: no teeth Pulm: clear anteriorly CV: s1 s2 rrr no mrg Abd: s nd nt Ext: LLE BKA, lateral wound cdi + tenderness Laboratory Results - last 24 hr 06/28/17 06/28/17 06/28/17 11:40 11:40 11:55 WBC 11.2 H RBC 3.66 L Hgb 8.7 L Hct 27.7 L MCV 75.7 L MCH 23.9 L MCHC 31.6 L RDW 16.7 H Plt Count 742 H MPV 6.6 L Neutrophils % 81.9 Lymphocytes % 7.8 L D Monocytes % 8.1 Eosinophils % 1.6 Basophils % 0.6 Sodium 139 Potassium 3.7 Chloride 110 H Carbon Dioxide 22 Anion Gap 7 L BUN 3 L Creatinine 0.8 POC Glucometer 269 Random Glucose 125 H D Calcium 7.1 L Phosphorus 2.2 L Magnesium 1.9 D Active Medications Generic Name Dose Route Start Last Admin Trade Name Julee PRN Reason Stop Dose Admin Acetaminophen 650 mg 06/20/17 14:04 06/28/17 09:26 Tylenol - PO 650 mg Q4H PRN Administration FEVER OR PAIN Collagenase 1 applic 06/21/17 10:00 06/28/17 09:33 Santyl - TP 1 applic DAILY JESUS Administration Diphenhydramine HCl 25 mg 06/20/17 14:04 Benadryl Injection - IVPB Q8H PRN NAUSEA Gabapentin 100 mg 06/20/17 16:45 06/28/17 06:30 Neurontin - PO 100 mg TID JESUS Administration Heparin Sodium (Porcine) 5,000 unit 06/23/17 22:00 06/28/17 06:31 Heparin - SQ 5,000 unit TID JESUS Administration Famotidine/Sodium Chloride 50 mls @ 100 mls/hr 06/20/17 22:00 06/28/17 09:24 Pepcid 20 Mg Premixed Ivpb - IVPB 100 mls/hr BID JESUS Administration Piperacillin/Tazobactam/Dextrose 100 mls @ 200 mls/hr 06/26/17 16:00 06/28/17 09:27 Zosyn 4.5gm Ivpb (Premix) IVPB 07/02/17 15:29 200 mls/hr Q6H-IV JESUS Administration Potassium Chloride/Dextrose/Sod Cl 1,000 mls @ 100 mls/hr 06/27/17 16:15 17:11 D5-1/2ns+20 Meq Kcl - IV 100 mls/hr ASDIR JESUS Administration Potassium Phosphate 15 mm/ 255 mls @ 62.5 mls/hr 06/28/17 13:15 Dextrose IVPB 06/28/17 17:19 ONCE ONE Insulin Aspart 1 vial 06/20/17 16:30 06/28/17 06:31 Novolog Vial Sliding Scale - SQ Not Given ACHS JESUS Protocol Insulin Detemir 15 units 06/21/17 07:00 06/28/17 06:31 Levemir Vial SQ 15 unit AM JESUS Administration Lidocaine 1 patch 06/20/17 22:00 06/27/17 22:47 Lidoderm Patch - TP 1 patch HS JESUS Administration Lisinopril 20 mg 06/21/17 10:00 06/28/17 09:25 Prinivil PO 20 mg DAILY JESUS Administration Lorazepam 1 mg 06/27/17 16:43 Ativan Injection - IVPUSH Q8H PRN ANXIETY Metoclopramide HCl 10 mg 06/26/17 13:52 06/27/17 03:58 Reglan Injection - IVPB 10 mg Q8H PRN Administration NAUSEA AND/OR VOMITING Miscellaneous 1 each 06/21/17 10:00 06/28/17 09:27 Lidoderm Patch Removal MC 1 each DAILY JESUS Administration Ondansetron HCl 4 mg 06/20/17 14:04 06/27/17 15:25 Zofran Injection IVPB 4 mg Q6H PRN Administration NAUSEA Oxycodone HCl 10 mg 06/26/17 18:52 06/28/17 09:25 Roxicodone - PO 10 mg Q4H PRN Administration PAIN Abx: - Vancomycin discontinued 06/25 Assessment: 47 year old male with PMHx of DM, multiple soft tissue infections, hx of MRSA, s/p left BKA admitted with worsening posterior left leg pain x1 week. Plan: 1. Sepsis 2/2 diabetic wound - Leukocytosis improving - Continue increased zosyn dose 4.5mg q8 - Will need abx ~3 more days per ID 2. Left lower extremity pain - Per vascular no acute pathology can be seen 3. HTN - Controlled - Started lisinopril 20mg daily 4. Uncontrolled DM II - Levemir 15u sq AM - BGM, ISS ACHS 5. Hypoalbuminemia - Diabetic diet, soft - Patient refusing to eat hospital food, he wants a turkey sandwich and tomatoes and lettuce, protein shakes causing him to vomit from lactose - Poor intake, continue IVF d5 ns @ 100cc/hr 6. Hypokalemia - Resolved 7. Hypocalcemia - Corrected ca ~9 8. Hypophosphatemia - Replete 15mmol IV phos x1 9. Hypomagnesemia - Resolved 10. Thrombocytosis - Likely reactive due infective/inflammation - Elevated after 500cc boarder - Hematology consult requested 11. Prophylaxis - Heparin 5,000u sq tid - PT w/ walker 12. Hypoglycemia - Resolved Visit type - Emergency Visit Emergency Visit: Yes ED Registration Date: 06/17/17 Care time: The patient presented to the Emergency Department on the above date and was hospitalized for further evaluation of their emergent condition. - New Patient This patient is new to me today: No - Critical Care Critical Care patient: No
--- NOTE | 2017-06-28 13:44 | PN ---
Progress Note, Physician History of Present Illness: thigh pain is main issue no other issues wbc trending down - Current Medication List Current Medications: Active Medications Acetaminophen (Tylenol -) 650 mg PO Q4H PRN PRN Reason: FEVER OR PAIN Last Admin: 06/28/17 09:26 Dose: 650 mg Collagenase (Santyl -) 1 applic TP DAILY [facility] Last Admin: 06/28/17 09:33 Dose: 1 applic Diphenhydramine HCl (Benadryl Injection -) 25 mg IVPB Q8H PRN PRN Reason: NAUSEA Gabapentin (Neurontin -) 100 mg PO TID [facility] Last Admin: 06/28/17 06:30 Dose: 100 mg Heparin Sodium (Porcine) (Heparin -) 5,000 unit SQ TID [facility] Last Admin: 06/28/17 06:31 Dose: 5,000 unit Famotidine/Sodium Chloride (Pepcid 20 Mg Premixed Ivpb -) 50 mls @ 100 mls/hr IVPB BID [facility] Last Admin: 06/28/17 09:24 Dose: 100 mls/hr Piperacillin/Tazobactam/Dextrose (Zosyn 4.5gm Ivpb (Premix)) 100 mls @ 200 mls/ hr IVPB Q6H-IV JESUS Stop: 07/02/17 15:29 Last Admin: 06/28/17 09:27 Dose: 200 mls/hr Potassium Chloride/Dextrose/Sod Cl (D5-1/2ns+20 Meq Kcl -) 1,000 mls @ 100 mls/ hr IV ASDIR [facility] Last Admin: 06/28/17 13:27 Dose: 100 mls/hr Potassium Phosphate 15 mm/ (Dextrose) 255 mls @ 62.5 mls/hr IVPB ONCE ONE Stop: 06/28/17 17:19 Insulin Aspart (Novolog Vial Sliding Scale -) 1 vial SQ ACHS [facility] PRN Reason: Protocol Last Admin: 06/28/17 12:36 Dose: 3 units Insulin Detemir (Levemir Vial) 15 units SQ AM [facility] Last Admin: 06/28/17 06:31 Dose: 15 unit Lidocaine (Lidoderm Patch -) 1 patch TP HS [facility] Last Admin: 06/27/17 22:47 Dose: 1 patch Lisinopril (Prinivil) 20 mg PO DAILY [facility] Last Admin: 06/28/17 09:25 Dose: 20 mg Lorazepam (Ativan Injection -) 1 mg IVPUSH Q8H PRN PRN Reason: ANXIETY Metoclopramide HCl (Reglan Injection -) 10 mg IVPB Q8H PRN PRN Reason: NAUSEA AND/OR VOMITING Last Admin: 06/27/17 03:58 Dose: 10 mg Miscellaneous (Lidoderm Patch Removal) 1 each MC DAILY JESUS Last Admin: 06/28/17 09:27 Dose: 1 each Ondansetron HCl (Zofran Injection) 4 mg IVPB Q6H PRN PRN Reason: NAUSEA Last Admin: 06/27/17 15:25 Dose: 4 mg Oxycodone HCl (Roxicodone -) 10 mg PO Q4H PRN PRN Reason: PAIN Last Admin: 06/28/17 09:25 Dose: 10 mg - Objective Vital Signs: Vital Signs Temperature 98.5 F 06/28/17 05:41 Pulse Rate 96 H 06/28/17 05:41 Respiratory Rate 18 06/28/17 05:41 Blood Pressure 131/70 06/28/17 05:41 O2 Sat by Pulse Oximetry (%) 99 06/27/17 21:00 Constitutional: Yes: No Distress, Calm Cardiovascular: Yes: Regular Rate and Rhythm Respiratory: Yes: Regular, CTA Bilaterally Gastrointestinal: Yes: Normal Bowel Sounds, Soft Musculoskeletal: Yes: Other (thigh still swollen but improving) Wound/Incision: Yes: Dressing Dry and Intact Neurological: Yes: Alert Psychiatric: Yes: Alert, Oriented Labs: CBC, BMP 06/28/17 11:40 06/28/17 11:40 INR, PTT INR 1.07 (0.82-1.09) 06/17/17 00:05 Assessment/Plan Problem List - Problems (1) Sepsis Code(s): A41.9 - SEPSIS, UNSPECIFIED ORGANISM (2) Abscess and cellulitis Code(s): L03.90 - CELLULITIS, UNSPECIFIED L02.91 - CUTANEOUS ABSCESS, UNSPECIFIED (3) Cellulitis and abscess of left leg Code(s): L03.116 - CELLULITIS OF LEFT LOWER LIMB L02.416 - CUTANEOUS ABSCESS OF LEFT LOWER LIMB (4) Intractable vomiting with nausea Code(s): R11.2 - NAUSEA WITH VOMITING, UNSPECIFIED Qualifiers: Vomiting type: unspecified Qualified Code(s): R11.2 - Nausea with vomiting, unspecified; R11.2 - Nausea with vomiting, unspecified (5) Noncompliance with diabetes treatment Code(s): Z91.19 - PATIENT'S NONCOMPLIANCE W OTH MEDICAL TREATMENT AND REGIMEN (6) Diabetic ulcer of lower extremity Code(s): E11.622 - TYPE 2 DIABETES MELLITUS WITH OTHER SKIN ULCER L97.909 - NON-PRS CHRONIC ULC UNSP PRT OF UNSP LOW LEG W UNSP SEVERITY lactic acidosis leukocytosis uti plan continue abx continue monitoring wbc wound care rest as per [primary
[2017-06-28] MEDS ORDERED: POTASSIUM PHOSPHATE 15 MM in DEXTROSE 5%-WATER - 250 ML IVPB ONE (14:15)
--- NOTE | 2017-06-28 17:41 | CONSULT ---
Consult Consult Specialty:: Thrombocytosis - History of Present Illness History of Present Illness: 47 year old male with PMHx of DM, multiple soft tissue infections, hx of MRSA, s /p left BKA admitted with worsening posterior left leg pain x1 week. Was in the ICU, now being treated for Celluilitis - History Source History Provided By: Patient, Medical Record Limitations to Obtaining History: No Limitations - Past Medical History Cardio/Vascular: Yes: HTN, Hyperlipdemia Gastrointestinal: Yes: GERD Infectious Disease: Yes: MRSA (several years ago) Musculoskeletal: Yes: Other Endocrine: Yes: Diabetes Mellitus Dermatology: Yes: Cellulitis (mrsa) - Past Surgical History Past Surgical History: Yes: Amputation (left BKA) - Alcohol/Substance Use Hx Alcohol Use: No - Smoking History Smoking history: Former smoker Have you smoked in the past 12 months: No Aproximately how many cigarettes per day: 0 If you are a former smoker, when did you quit?: 10 years ago - Social History Usual Living Arrangement: With Spouse ADL: Independent History of Recent Travel: No Home Medications - Allergies Allergies/Adverse Reactions: Allergies Allergy/AdvReac Type Severity Reaction Status Date / Time No Known Allergies Allergy Verified 06/16/17 23:22 - Home Medications Home Medications: Ambulatory Orders Collagenase Clostridium Hist. [Santyl] 1 applic TP DAILY #1 oint...g. 05/26/17 Oxycodone HCl/Acetaminophen [Percocet 10-325 mg Tablet] 1 each PO Q6H PRN Family Disease History - Family Disease History Family Disease History: Diabetes: Father Review of Systems - Review of Systems Constitutional: denies: Chills, Diaphoresis, Fever, Lethargy, Loss of Appetite Cardiovascular: denies: Chest Pain, Edema Respiratory: denies: Cough, Exercise Intolerance Gastrointestinal: denies: Abdominal Pain, Bloating Musculoskeletal: reports: Extremity Pain Neurological: denies: Change in LOC, Change in Speech, Confusion Hematology/Lymphatic: denies: Easily Bruised, Excessive Bleeding, Swollen Glands Psychiatric: reports: No Symptoms Physical Exam Vital Signs: Vital Signs Temperature 98.5 F 06/28/17 14:51 Pulse Rate 88 06/28/17 14:51 Respiratory Rate 18 06/28/17 14:51 Blood Pressure 124/78 06/28/17 14:51 O2 Sat by Pulse Oximetry (%) 98 06/28/17 09:00 Constitutional: Yes: Well Nourished, No Distress, Anxious HENT: Yes: Atraumatic, Normocephalic Neck: Yes: Trachea Midline Cardiovascular: Yes: Regular Rate and Rhythm Respiratory: Yes: Regular, CTA Bilaterally Gastrointestinal: Yes: Normal Bowel Sounds, Soft, Abdomen, Obese Extremities: Yes: Amputation Edema: No Labs: CBC, BMP 06/28/17 11:40 06/28/17 11:40 Imaging - Results Cat Scan: Report Reviewed Assessment/Plan Leucocytosis Thrombocytosis Cellulitis Extremity pain. Likely reactive r/o MPN For labs abx per ID Pain control US LE US abdomen continue to monitor will follow
[2017-06-28] MEDS: LIDOCAINE 5% TOPICAL PATCH TP SCH (21:56)
[2017-06-29] MEDS: ACETAMINOPHEN 325 MG TABLET (FP) PO PRN (02:20)
[2017-06-29] MEDS: oxyCODONE HCL 5 MG TABLET PO PRN ×4 (02:20→20:55)
[2017-06-29] MEDS: PIPERACILLIN/TAZOB 4.5 GM 100 ML IVPB SCH ×4 (02:20→20:55)
[2017-06-29] MEDS: HEPARIN NA (PORCINE) 5,000 UNITS/ML 1ML VIAL SQ SCH ×3 (05:57→21:01)
[2017-06-29] MEDS: GABAPENTIN 100 MG CAPSULE (FP) PO SCH ×3 (05:58→21:01)
[2017-06-29] MEDS: D5-1/2NS+20 MEQ KCL - 1,000 ML IV SCH ×4 (05:59→22:30)
[2017-06-29] MEDS: INSULIN DETEMIR 100 UNITS/ML MDV SQ SCH (06:00)
[2017-06-29] MEDS: INSULIN SLIDING SCALE (NOVOLOG) 1 VIAL SQ SCH ×4 (06:00→21:02)
[2017-06-29 07:48] LABS: BASOPHIL 0.5 % (0-2.0); EOSINOPHIL 1.9 % (0-4.5); MCH 24.3 pg (25.7-33.7); MCHC 32.3 g/dl (32.0-35.9); MEAN CELL VOLUME 75.2 fl (80-96); MEAN PLT VOLUME 6.5 fl (7.5-11.1); NEUTROPHILS 80.1 % (42.8-82.8); PLATELET COUNT 713 K/MM3 (134-434); RDW 16.5 % (11.9-15.9)
[2017-06-29 07:59] LABS: INR 1.29 (0.82-1.09); PROTHROMBIN TIME (PATIENT) 14.6 SEC (9.98-11.88)
[2017-06-29 08:02] LABS: ACTIVATED PTT 34.6 SECONDS (26.9-34.4)
[2017-06-29 08:16] LABS: ALBUMIN 1.1 g/dl (3.4-5.0); ANION GAP 9 (8-16); CO2 20 mmol/L (21-32); GLUCOSE,RANDOM 201 mg/dL (74-106)
[2017-06-29 08:20] LABS: ALK PHOS 401 U/L (45-117); BILIRUBIN,TOTAL 0.6 mg/dL (0.2-1.0); CREATININE 0.8 mg/dL (0.7-1.3); LDH 118 U/L (87-241); PHOSPHOROUS 2.2 mg/dL (2.5-4.9); SGPT/ALT < 6 U/L (12-78)
[2017-06-29 08:33] LABS: SGOT/AST 4 U/L (15-37)
[2017-06-29] MEDS ORDERED: PT OWN MED DRAWER 7, Y5N ONE ×2 (09:31→14:40)
[2017-06-29] MEDS: LIDOCAINE PATCH REMOVAL MC SCH (09:35)
[2017-06-29] MEDS: LISINOPRIL 20 MG TABLET (FP) PO SCH (09:36)
[2017-06-29] MEDS: COLLAGENASE CLOSTRIDIUM HIST. 30 GRAMS TUBE TP SCH (09:37)
[2017-06-29] MEDS: FAMOTIDINE 20 MG/50 ML IVPB 50 ML IVPB SCH ×2 (10:25→22:36)
--- NOTE | 2017-06-29 14:43 | PN ---
Progress Note, Physician History of Present Illness: pain main issue no other issues - Current Medication List Current Medications: Active Medications Acetaminophen (Tylenol -) 650 mg PO Q4H PRN PRN Reason: FEVER OR PAIN Last Admin: 06/29/17 02:20 Dose: 650 mg Collagenase (Santyl -) 1 applic TP DAILY [facility] Last Admin: 06/29/17 09:37 Dose: 1 applic Diphenhydramine HCl (Benadryl Injection -) 25 mg IVPB Q8H PRN PRN Reason: NAUSEA Gabapentin (Neurontin -) 100 mg PO TID [facility] Last Admin: 06/29/17 05:58 Dose: 100 mg Heparin Sodium (Porcine) (Heparin -) 5,000 unit SQ TID [facility] Last Admin: 06/29/17 05:57 Dose: 5,000 unit Famotidine/Sodium Chloride (Pepcid 20 Mg Premixed Ivpb -) 50 mls @ 100 mls/hr IVPB BID [facility] Last Admin: 06/29/17 10:25 Dose: 100 mls/hr Piperacillin/Tazobactam/Dextrose (Zosyn 4.5gm Ivpb (Premix)) 100 mls @ 200 mls/ hr IVPB Q6H-IV [facility] Stop: 07/02/17 15:29 Last Admin: 06/29/17 09:35 Dose: 200 mls/hr Potassium Chloride/Dextrose/Sod Cl (D5-1/2ns+20 Meq Kcl -) 1,000 mls @ 100 mls/ hr IV ASDIR [facility] Last Admin: 06/29/17 08:07 Dose: 100 mls/hr Insulin Aspart (Novolog Vial Sliding Scale -) 1 vial SQ ACHS [facility] PRN Reason: Protocol Last Admin: 06/29/17 11:45 Dose: Not Given Insulin Detemir (Levemir Vial) 15 units SQ AM [facility] Last Admin: 06/29/17 06:00 Dose: 15 unit Lidocaine (Lidoderm Patch -) 1 patch TP HS [facility] Last Admin: 06/28/17 21:56 Dose: 1 patch Lisinopril (Prinivil) 20 mg PO DAILY [facility] Last Admin: 06/29/17 09:36 Dose: 20 mg Lorazepam (Ativan Injection -) 1 mg IVPUSH Q8H PRN PRN Reason: ANXIETY Metoclopramide HCl (Reglan Injection -) 10 mg IVPB Q8H PRN PRN Reason: NAUSEA AND/OR VOMITING Last Admin: 06/27/17 03:58 Dose: 10 mg Miscellaneous (Lidoderm Patch Removal) 1 each MC DAILY JESUS Last Admin: 06/29/17 09:35 Dose: 1 each Ondansetron HCl (Zofran Injection) 4 mg IVPB Q6H PRN PRN Reason: NAUSEA Last Admin: 06/27/17 15:25 Dose: 4 mg Oxycodone HCl (Roxicodone -) 10 mg PO Q4H PRN PRN Reason: PAIN Last Admin: 06/29/17 09:44 Dose: 10 mg - Objective Vital Signs: Vital Signs Temperature 98.3 F 06/29/17 10:00 Pulse Rate 88 06/29/17 10:00 Respiratory Rate 18 06/29/17 10:00 Blood Pressure 148/93 06/29/17 10:00 O2 Sat by Pulse Oximetry (%) 99 06/28/17 21:00 Constitutional: Yes: No Distress, Calm HENT: Yes: Atraumatic Cardiovascular: Yes: Regular Rate and Rhythm Respiratory: Yes: Regular, CTA Bilaterally Gastrointestinal: Yes: Normal Bowel Sounds, Soft Musculoskeletal: Yes: Other Extremities: Yes: Other Wound/Incision: Yes: Dressing Dry and Intact, Other (daiange noted on the wound) Neurological: Yes: Alert, Oriented Psychiatric: Yes: Alert, Oriented Labs: CBC, BMP 06/29/17 06:00 06/29/17 06:00 INR, PTT INR 1.29 (0.82-1.09) H 06/29/17 06:00 Assessment/Plan Problem List - Problems (1) Sepsis Code(s): A41.9 - SEPSIS, UNSPECIFIED ORGANISM (2) Abscess and cellulitis Code(s): L03.90 - CELLULITIS, UNSPECIFIED L02.91 - CUTANEOUS ABSCESS, UNSPECIFIED (3) Cellulitis and abscess of left leg Code(s): L03.116 - CELLULITIS OF LEFT LOWER LIMB L02.416 - CUTANEOUS ABSCESS OF LEFT LOWER LIMB (4) Intractable vomiting with nausea Code(s): R11.2 - NAUSEA WITH VOMITING, UNSPECIFIED Qualifiers: Vomiting type: unspecified Qualified Code(s): R11.2 - Nausea with vomiting, unspecified; R11.2 - Nausea with vomiting, unspecified (5) Noncompliance with diabetes treatment Code(s): Z91.19 - PATIENT'S NONCOMPLIANCE W OTH MEDICAL TREATMENT AND REGIMEN (6) Diabetic ulcer of lower extremity Code(s): E11.622 - TYPE 2 DIABETES MELLITUS WITH OTHER SKIN ULCER L97.909 - NON-PRS CHRONIC ULC UNSP PRT OF UNSP LOW LEG W UNSP SEVERITY lactic acidosis leukocytosis uti plan wbc has normalized will probably stop abx in a day or so
--- NOTE | 2017-06-29 15:08 | PN ---
Progress Note (short form) - Note Progress Note: Subjective: The patient was seen and examined at the bedside, no complaints at this time Current Medications Generic Name Dose Route Start Last Admin Trade Name Frenusrat PRN Reason Stop Dose Admin Acetaminophen 650 mg 06/20/17 14:04 06/29/17 02:20 Tylenol - PO 650 mg Q4H PRN Administration FEVER OR PAIN Collagenase 1 applic 06/21/17 10:00 06/29/17 09:37 Santyl - TP 1 applic DAILY JESUS Administration Diphenhydramine HCl 25 mg 06/20/17 14:04 Benadryl Injection - IVPB Q8H PRN NAUSEA Gabapentin 100 mg 06/20/17 16:45 06/29/17 05:58 Neurontin - PO 100 mg TID JESUS Administration Heparin Sodium (Porcine) 5,000 unit 06/23/17 22:00 06/29/17 05:57 Heparin - SQ 5,000 unit TID JESUS Administration Famotidine/Sodium Chloride 50 mls @ 100 mls/hr 06/20/17 22:00 06/29/17 10:25 Pepcid 20 Mg Premixed Ivpb - IVPB 100 mls/hr BID JESUS Administration Piperacillin/Tazobactam/Dextrose 100 mls @ 200 mls/hr 06/26/17 16:00 06/29/17 09:35 Zosyn 4.5gm Ivpb (Premix) IVPB 07/02/17 15:29 200 mls/hr Q6H-IV JEUSS Administration Potassium Chloride/Dextrose/Sod Cl 1,000 mls @ 100 mls/hr 06/27/17 16:15 08:07 D5-1/2ns+20 Meq Kcl - IV 100 mls/hr ASDIR JESUS Administration Insulin Aspart 1 vial 06/20/17 16:30 06/29/17 11:45 Novolog Vial Sliding Scale - SQ Not Given ACHS JESUS Protocol Insulin Detemir 15 units 06/21/17 07:00 06/29/17 06:00 Levemir Vial SQ 15 unit AM JESUS Administration Lidocaine 1 patch 06/20/17 22:00 06/28/17 21:56 Lidoderm Patch - TP 1 patch HS JESUS Administration Lisinopril 20 mg 06/21/17 10:00 06/29/17 09:36 Prinivil PO 20 mg DAILY JESUS Administration Lorazepam 1 mg 06/27/17 16:43 Ativan Injection - IVPUSH Q8H PRN ANXIETY Metoclopramide HCl 10 mg 06/26/17 13:52 06/27/17 03:58 Reglan Injection - IVPB 10 mg Q8H PRN Administration NAUSEA AND/OR VOMITING Miscellaneous 1 each 06/21/17 10:00 06/29/17 09:35 Lidoderm Patch Removal MC 1 each DAILY JESUS Administration Ondansetron HCl 4 mg 06/20/17 14:04 06/27/17 15:25 Zofran Injection IVPB 4 mg Q6H PRN Administration NAUSEA Oxycodone HCl 10 mg 06/26/17 18:52 06/29/17 09:44 Roxicodone - PO 10 mg Q4H PRN Administration PAIN Objective: Vital Signs Period Temp Pulse Resp BP Sys/Monet Pulse Ox Last 24 Hr 98.1 F-98.3 F 83-97 18-20 128-148/77-93 99 Physical Exam: Patient refused CBCD WBC 10.0 K/mm3 (4.0-10.0) 06/29/17 06:00 RBC 3.63 M/mm3 (4.00-5.60) L 06/29/17 06:00 Hgb 8.8 GM/dL (11.7-16.9) L 06/29/17 06:00 Hct 27.3 % (35.4-49) L 06/29/17 06:00 MCV 75.2 fl (80-96) L 06/29/17 06:00 MCHC 32.3 g/dl (32.0-35.9) 06/29/17 06:00 RDW 16.5 % (11.9-15.9) H 06/29/17 06:00 Plt Count 713 K/MM3 (134-434) H 06/29/17 06:00 MPV 6.5 fl (7.5-11.1) L 06/29/17 06:00 CMP Sodium 139 mmol/L (136-145) 06/29/17 06:00 Potassium 3.9 mmol/L (3.5-5.1) 06/29/17 06:00 Chloride 110 mmol/L (98-107) H 06/29/17 06:00 Carbon Dioxide 20 mmol/L (21-32) L 06/29/17 06:00 Anion Gap 9 (8-16) 06/29/17 06:00 BUN 3 mg/dL (7-18) L 06/29/17 06:00 Creatinine 0.8 mg/dL (0.7-1.3) 06/29/17 06:00 Creat Clearance w eGFR > 60 (>60) 06/29/17 06:00 Random Glucose 201 mg/dL (74-106) H D 06/29/17 06:00 Calcium 7.0 mg/dL (8.5-10.1) L 06/29/17 06:00 Total Bilirubin 0.6 mg/dL (0.2-1.0) D 06/29/17 06:00 AST 4 U/L (15-37) L D 06/29/17 06:00 ALT < 6 U/L (12-78) L 06/29/17 06:00 Alkaline Phosphatase 401 U/L (45-117) H 06/29/17 06:00 Total Protein 5.0 g/dl (6.4-8.2) L 06/29/17 06:00 Albumin 1.1 g/dl (3.4-5.0) L 06/29/17 06:00 CARDIAC ENZYMES Creatine Kinase 69 IU/L (39-308) 06/17/17 12:52 Troponin I < 0.02 ng/ml (0.00-0.05) 06/17/17 00:05 Microbiology 06/24/17 16:00 Blood - Peripheral Venous Blood Culture - Preliminary NO GROWTH OBTAINED AFTER 96 HOURS, INCUBATION TO CONTINUE FOR 1 DAYS. 06/24/17 16:00 Blood - Peripheral Venous Blood Culture - Preliminary NO GROWTH OBTAINED AFTER 96 HOURS, INCUBATION TO CONTINUE FOR 1 DAYS. 06/23/17 22:00 Nares - Mrsa Screen - Left MRSA Screen - Final NO MRSA ISOLATED 06/23/17 22:00 Nares - Right Nares MRSA Screen - Final NO MRSA ISOLATED 06/17/17 00:30 Blood - Peripheral Venous Blood Culture - Final NO GROWTH AFTER 5 DAYS INCUBATION 06/17/17 00:05 Blood - Peripheral Venous Blood Culture - Final Lactobacillus Species 06/17/17 00:41 Stump Gram Stain - Final 06/17/17 00:41 Stump Wound Culture - Final Staphylococcus Aureus Streptococcus Viridans Yeast Like Organism 06/17/17 06:30 Urine - Urine Clean Catch Urine Culture - Final Staphylococcus Aureus Assessment: This is a 47 year old male with PMHx of DM, multiple soft tissue infections, hx of MRSA, s/p left BKA who presented to the ED with worsening posterior left leg pain x1 week. Plan: 1) ID: Sepsis 2/2 diabetic wound - WBC wnl - Afebrile - Cultures as above - Continue Zosyn per ID - Vancomycin discontinued 06/25 - Apppreciate ID consult Left lower extremity pain - Per vascular no acute pathology can be seen - Awaiting reevluation as continues to have leukocytosis 2) Endocrine: IDDM - Levemir 15u sq AM - BGM ACHS - ISS ACHS 3) F/E/N: - Diabetic diet, soft - Monitor electrolytes - Hypophosphatemia: replete - Severe hypoalbuminemia 4) Prophylaxis: - Heparin 5,000u sq tid - PT 5) Dispo: - Requires continued inpatient care CODE STATUS: FULL CODE Visit type - Emergency Visit Emergency Visit: Yes ED Registration Date: 06/17/17 Care time: The patient presented to the Emergency Department on the above date and was hospitalized for further evaluation of their emergent condition. - New Patient This patient is new to me today: No - Critical Care Critical Care patient: No
[2017-06-29] MEDS ORDERED: NAPH,MB-DB/K PH,MBDB POWDER PACKET PO ONE (15:11)
[2017-06-29] MEDS ORDERED: morphine CARPU-JECT 2 MG/1 ML DISP.SYRIN IVPUSH ONE (17:39)
[2017-06-29] MEDS: LIDOCAINE 5% TOPICAL PATCH TP SCH (22:40)
[2017-06-30] MEDS: oxyCODONE HCL 5 MG TABLET PO PRN ×3 (03:01→17:38)
[2017-06-30] MEDS: PIPERACILLIN/TAZOB 4.5 GM 100 ML IVPB SCH ×2 (03:02→11:38)
[2017-06-30] MEDS ORDERED: INSULIN (NOVOLOG) ASPART 100 UNITS/ML 10ML VIAL ONE ×2 (05:19→20:04)
[2017-06-30] MEDS: HEPARIN NA (PORCINE) 5,000 UNITS/ML 1ML VIAL SQ SCH ×3 (06:04→21:05)
[2017-06-30] MEDS: GABAPENTIN 100 MG CAPSULE (FP) PO SCH ×3 (06:05→21:08)
[2017-06-30] MEDS: INSULIN DETEMIR 100 UNITS/ML MDV SQ SCH (06:32)
[2017-06-30] MEDS: INSULIN SLIDING SCALE (NOVOLOG) 1 VIAL SQ SCH ×4 (06:32→21:04)
[2017-06-30 08:37] LABS: MCH 24.2 pg (25.7-33.7); MCHC 30.2 g/dl (32.0-35.9); MEAN PLT VOLUME 6.7 fl (7.5-11.1); PLATELET COUNT 584 K/MM3 (134-434); RDW 17.3 % (11.9-15.9); WHITE BLOOD COUNT 8.5 K/mm3 (4.0-10.0)
--- NOTE | 2017-06-30 10:48 | PN ---
Progress Note (short form) - Note Progress Note: Pt seen and examined. no complains Constitutional: Yes: Well Nourished, No Distress, Anxious HENT: Yes: Atraumatic, Normocephalic Neck: Yes: Trachea Midline Cardiovascular: Yes: Regular Rate and Rhythm Respiratory: Yes: Regular, CTA Bilaterally Gastrointestinal: Yes: Normal Bowel Sounds, Soft, Abdomen, Obese Extremities: Yes: Amputation ,left BKA Edema: No Last Vital Signs Temp Pulse Resp BP Pulse Ox 98.3 F 100 H 20 138/74 98 06/30/17 06:00 06/30/17 06:00 06/30/17 06:00 06/30/17 06:00 06/29/17 21:00 CBC, BMP 06/30/17 07:00 06/30/17 07:00 Current Medications Generic Name Dose Route Start Last Admin Trade Name Freq PRN Reason Stop Dose Admin Acetaminophen 650 mg 06/20/17 14:04 06/29/17 02:20 Tylenol - PO 650 mg Q4H PRN Administration FEVER OR PAIN Collagenase 1 applic 06/21/17 10:00 06/29/17 09:37 Santyl - TP 1 applic DAILY JESUS Administration Diphenhydramine HCl 25 mg 06/20/17 14:04 Benadryl Injection - IVPB Q8H PRN NAUSEA Gabapentin 100 mg 06/20/17 16:45 06/30/17 06:05 Neurontin - PO 100 mg TID JESUS Administration Heparin Sodium (Porcine) 5,000 unit 06/23/17 22:00 06/30/17 06:04 Heparin - SQ 5,000 unit TID JESUS Administration Famotidine/Sodium Chloride 50 mls @ 100 mls/hr 06/20/17 22:00 06/29/17 22:36 Pepcid 20 Mg Premixed Ivpb - IVPB Not Given BID JESUS Piperacillin/Tazobactam/Dextrose 100 mls @ 200 mls/hr 06/26/17 16:00 06/30/17 03:02 Zosyn 4.5gm Ivpb (Premix) IVPB 07/02/17 15:29 200 mls/hr Q6H-IV JESUS Administration Potassium Chloride/Dextrose/Sod Cl 1,000 mls @ 100 mls/hr 06/27/17 16:15 22:30 D5-1/2ns+20 Meq Kcl - IV 100 mls/hr ASDIR JESUS Administration Insulin Aspart 1 vial 06/20/17 16:30 06/30/17 06:32 Novolog Vial Sliding Scale - SQ 2 units ACHS JESUS Administration Protocol Insulin Detemir 15 units 06/21/17 07:00 06/30/17 06:32 Levemir Vial SQ 15 unit AM JESUS Administration Lidocaine 1 patch 06/20/17 22:00 06/29/17 22:40 Lidoderm Patch - TP 1 patch HS JESUS Administration Lisinopril 20 mg 06/21/17 10:00 06/29/17 09:36 Prinivil PO 20 mg DAILY JESUS Administration Lorazepam 1 mg 06/27/17 16:43 Ativan Injection - IVPUSH Q8H PRN ANXIETY Metoclopramide HCl 10 mg 06/26/17 13:52 06/27/17 03:58 Reglan Injection - IVPB 10 mg Q8H PRN Administration NAUSEA AND/OR VOMITING Miscellaneous 1 each 06/21/17 10:00 06/29/17 09:35 Lidoderm Patch Removal MC 1 each DAILY JESUS Administration Ondansetron HCl 4 mg 06/20/17 14:04 06/27/17 15:25 Zofran Injection IVPB 4 mg Q6H PRN Administration NAUSEA Oxycodone HCl 10 mg 06/29/17 20:43 06/30/17 03:01 Roxicodone - PO 10 mg Q6H PRN Administration PAIN Anemia w/u thrombocytosis likely reactive no splenomegaly no dvt will follow
[2017-06-30 11:12] LABS: MCH 23.9 pg (25.7-33.7); MCHC 31.5 g/dl (32.0-35.9); MEAN CELL VOLUME 75.9 fl (80-96); MEAN PLT VOLUME 6.4 fl (7.5-11.1); PLATELET COUNT 656 K/MM3 (134-434); WHITE BLOOD COUNT 9.3 K/mm3 (4.0-10.0)
[2017-06-30] MEDS: ACETAMINOPHEN 325 MG TABLET (FP) PO PRN (11:31)
[2017-06-30] MEDS: FAMOTIDINE 20 MG/50 ML IVPB 50 ML IVPB SCH ×2 (11:38→21:13)
[2017-06-30] MEDS: LISINOPRIL 20 MG TABLET (FP) PO SCH (11:38)
[2017-06-30] MEDS: LIDOCAINE PATCH REMOVAL MC SCH (11:38)
[2017-06-30] MEDS: COLLAGENASE CLOSTRIDIUM HIST. 30 GRAMS TUBE TP SCH (11:39)
[2017-06-30 11:44] LABS: ALK PHOS 373 U/L (45-117); ANION GAP 7 (8-16); BILIRUBIN,TOTAL 0.3 mg/dL (0.2-1.0); CALCIUM 7.1 mg/dL (8.5-10.1); CO2 23 mmol/L (21-32); CREATININE 0.8 mg/dL (0.7-1.3); GLUCOSE,RANDOM 166 mg/dL (74-106); SGOT/AST 6 U/L (15-37); SGPT/ALT < 6 U/L (12-78); TOT PROT 5.2 g/dl (6.4-8.2)
--- NOTE | 2017-06-30 12:28 | PN ---
Progress Note (short form) - Note Progress Note: Subjective: The patient was seen and examined at the bedside, no complaints at this time Current Medications Generic Name Dose Route Start Last Admin Trade Name Frenusrat PRN Reason Stop Dose Admin Acetaminophen 650 mg 06/20/17 14:04 06/29/17 02:20 Tylenol - PO 650 mg Q4H PRN Administration FEVER OR PAIN Collagenase 1 applic 06/21/17 10:00 06/29/17 09:37 Santyl - TP 1 applic DAILY JESUS Administration Diphenhydramine HCl 25 mg 06/20/17 14:04 Benadryl Injection - IVPB Q8H PRN NAUSEA Gabapentin 100 mg 06/20/17 16:45 06/29/17 05:58 Neurontin - PO 100 mg TID JESUS Administration Heparin Sodium (Porcine) 5,000 unit 06/23/17 22:00 06/29/17 05:57 Heparin - SQ 5,000 unit TID JESUS Administration Famotidine/Sodium Chloride 50 mls @ 100 mls/hr 06/20/17 22:00 06/29/17 10:25 Pepcid 20 Mg Premixed Ivpb - IVPB 100 mls/hr BID JESUS Administration Piperacillin/Tazobactam/Dextrose 100 mls @ 200 mls/hr 06/26/17 16:00 06/29/17 09:35 Zosyn 4.5gm Ivpb (Premix) IVPB 07/02/17 15:29 200 mls/hr Q6H-IV JESUS Administration Potassium Chloride/Dextrose/Sod Cl 1,000 mls @ 100 mls/hr 06/27/17 16:15 08:07 D5-1/2ns+20 Meq Kcl - IV 100 mls/hr ASDIR JESUS Administration Insulin Aspart 1 vial 06/20/17 16:30 06/29/17 11:45 Novolog Vial Sliding Scale - SQ Not Given ACHS JESUS Protocol Insulin Detemir 15 units 06/21/17 07:00 06/29/17 06:00 Levemir Vial SQ 15 unit AM JESUS Administration Lidocaine 1 patch 06/20/17 22:00 06/28/17 21:56 Lidoderm Patch - TP 1 patch HS JESUS Administration Lisinopril 20 mg 06/21/17 10:00 06/29/17 09:36 Prinivil PO 20 mg DAILY JESUS Administration Lorazepam 1 mg 06/27/17 16:43 Ativan Injection - IVPUSH Q8H PRN ANXIETY Metoclopramide HCl 10 mg 06/26/17 13:52 06/27/17 03:58 Reglan Injection - IVPB 10 mg Q8H PRN Administration NAUSEA AND/OR VOMITING Miscellaneous 1 each 06/21/17 10:00 06/29/17 09:35 Lidoderm Patch Removal MC 1 each DAILY JESUS Administration Ondansetron HCl 4 mg 06/20/17 14:04 06/27/17 15:25 Zofran Injection IVPB 4 mg Q6H PRN Administration NAUSEA Oxycodone HCl 10 mg 06/26/17 18:52 06/29/17 09:44 Roxicodone - PO 10 mg Q4H PRN Administration PAIN Objective: Vital Signs Period Temp Pulse Resp BP Sys/Monet Pulse Ox Last 24 Hr 98.1 F-98.3 F 83-97 18-20 128-148/77-93 99 Physical Exam: General: NAD, A&Ox3 Lungs: CTA bilaterally Heart: RRR, S1S2 Abd: Soft, non-tender, non-distended. Normoactive bowel sounds Ext: Left BKA with lateral wound, dressing c/d/i. Right DP/PT 2+ CBCD WBC 9.3 K/mm3 (4.0-10.0) 06/30/17 10:40 RBC 3.61 M/mm3 (4.00-5.60) L 06/30/17 10:40 Hgb 8.6 GM/dL (11.7-16.9) L D 06/30/17 10:40 Hct 27.4 % (35.4-49) L 06/30/17 10:40 MCV 75.9 fl (80-96) L 06/30/17 10:40 MCHC 31.5 g/dl (32.0-35.9) L 06/30/17 10:40 RDW 17.0 % (11.9-15.9) H 06/30/17 10:40 Plt Count 656 K/MM3 (134-434) H 06/30/17 10:40 MPV 6.4 fl (7.5-11.1) L 06/30/17 10:40 CMP Sodium 139 mmol/L (136-145) 06/30/17 10:40 Potassium 4.1 mmol/L (3.5-5.1) 06/30/17 10:40 Chloride 109 mmol/L (98-107) H 06/30/17 10:40 Carbon Dioxide 23 mmol/L (21-32) 06/30/17 10:40 Anion Gap 7 (8-16) L 06/30/17 10:40 BUN 4 mg/dL (7-18) L D 06/30/17 10:40 Creatinine 0.8 mg/dL (0.7-1.3) 06/30/17 10:40 Creat Clearance w eGFR > 60 (>60) 06/30/17 10:40 Random Glucose 166 mg/dL (74-106) H 06/30/17 10:40 Calcium 7.1 mg/dL (8.5-10.1) L 06/30/17 10:40 Total Bilirubin 0.3 mg/dL (0.2-1.0) D 06/30/17 10:40 AST 6 U/L (15-37) L D 06/30/17 10:40 ALT < 6 U/L (12-78) L 06/30/17 10:40 Alkaline Phosphatase 373 U/L (45-117) H 06/30/17 10:40 Total Protein 5.2 g/dl (6.4-8.2) L 06/30/17 10:40 Albumin 1.0 g/dl (3.4-5.0) L 06/30/17 10:40 CARDIAC ENZYMES Creatine Kinase 69 IU/L (39-308) 06/17/17 12:52 Troponin I < 0.02 ng/ml (0.00-0.05) 06/17/17 00:05 Microbiology 06/24/17 16:00 Blood - Peripheral Venous Blood Culture - Final NO GROWTH AFTER 5 DAYS INCUBATION 06/24/17 16:00 Blood - Peripheral Venous Blood Culture - Final NO GROWTH AFTER 5 DAYS INCUBATION 06/23/17 22:00 Nares - Mrsa Screen - Left MRSA Screen - Final NO MRSA ISOLATED 06/23/17 22:00 Nares - Right Nares MRSA Screen - Final NO MRSA ISOLATED 06/17/17 00:30 Blood - Peripheral Venous Blood Culture - Final NO GROWTH AFTER 5 DAYS INCUBATION 06/17/17 00:05 Blood - Peripheral Venous Blood Culture - Final Lactobacillus Species 06/17/17 00:41 Stump Gram Stain - Final 06/17/17 00:41 Stump Wound Culture - Final Staphylococcus Aureus Streptococcus Viridans Yeast Like Organism 06/17/17 06:30 Urine - Urine Clean Catch Urine Culture - Final Staphylococcus Aureus Assessment: This is a 47 year old male with PMHx of DM, multiple soft tissue infections, hx of MRSA, s/p left BKA who presented to the ED with worsening posterior left leg pain x1 week. Plan: 1) ID: Sepsis 2/2 diabetic wound - WBC wnl - Afebrile - Cultures as above - Continue Zosyn per ID - Vancomycin discontinued 06/25 - Apppreciate ID consult Left lower extremity pain - Likely strained hamstring, continue PT - Per vascular no acute pathology can be seen - Awaiting reevluation as continues to have leukocytosis 2) Endocrine: IDDM - Levemir 15u sq AM - BGM ACHS - ISS ACHS 3) F/E/N: - Diabetic diet, soft - Monitor electrolytes - Hypophosphatemia: replete - Severe hypoalbuminemia 4) Prophylaxis: - Heparin 5,000u sq tid - PT 5) Dispo: - Requires continued inpatient care CODE STATUS: FULL CODE Visit type - Emergency Visit Emergency Visit: Yes ED Registration Date: 06/17/17 Care time: The patient presented to the Emergency Department on the above date and was hospitalized for further evaluation of their emergent condition. - New Patient This patient is new to me today: No - Critical Care Critical Care patient: No
--- NOTE | 2017-06-30 14:28 | PN ---
Progress Note, Physician History of Present Illness: pain main issue patient improving - Current Medication List Current Medications: Active Medications Acetaminophen (Tylenol -) 650 mg PO Q4H PRN PRN Reason: FEVER OR PAIN Last Admin: 06/30/17 11:31 Dose: 650 mg Collagenase (Santyl -) 1 applic TP DAILY REPLACED BY [facility] Last Admin: 06/30/17 11:39 Dose: 1 applic Diphenhydramine HCl (Benadryl Injection -) 25 mg IVPB Q8H PRN PRN Reason: NAUSEA Gabapentin (Neurontin -) 100 mg PO TID REPLACED BY [facility] Last Admin: 06/30/17 06:05 Dose: 100 mg Heparin Sodium (Porcine) (Heparin -) 5,000 unit SQ TID REPLACED BY [facility] Last Admin: 06/30/17 06:04 Dose: 5,000 unit Famotidine/Sodium Chloride (Pepcid 20 Mg Premixed Ivpb -) 50 mls @ 100 mls/hr IVPB BID REPLACED BY [facility] Last Admin: 06/30/17 11:38 Dose: Not Given Potassium Chloride/Dextrose/Sod Cl (D5-1/2ns+20 Meq Kcl -) 1,000 mls @ 100 mls/ hr IV ASDIR REPLACED BY [facility] Last Admin: 06/29/17 22:30 Dose: 100 mls/hr Insulin Aspart (Novolog Vial Sliding Scale -) 1 vial SQ ACHS REPLACED BY [facility] PRN Reason: Protocol Last Admin: 06/30/17 12:44 Dose: Not Given Insulin Detemir (Levemir Vial) 15 units SQ AM REPLACED BY [facility] Last Admin: 06/30/17 06:32 Dose: 15 unit Lidocaine (Lidoderm Patch -) 1 patch TP HS REPLACED BY [facility] Last Admin: 06/29/17 22:40 Dose: 1 patch Lisinopril (Prinivil) 20 mg PO DAILY REPLACED BY [facility] Last Admin: 06/30/17 11:38 Dose: 20 mg Lorazepam (Ativan Injection -) 1 mg IVPUSH Q8H PRN PRN Reason: ANXIETY Metoclopramide HCl (Reglan Injection -) 10 mg IVPB Q8H PRN PRN Reason: NAUSEA AND/OR VOMITING Last Admin: 06/27/17 03:58 Dose: 10 mg Miscellaneous (Lidoderm Patch Removal) 1 each MC DAILY REPLACED BY [facility] Last Admin: 06/30/17 11:38 Dose: 1 each Ondansetron HCl (Zofran Injection) 4 mg IVPB Q6H PRN PRN Reason: NAUSEA Last Admin: 06/27/17 15:25 Dose: 4 mg Oxycodone HCl (Roxicodone -) 10 mg PO Q6H PRN PRN Reason: PAIN Last Admin: 06/30/17 11:30 Dose: 10 mg - Objective Vital Signs: Vital Signs Temperature 98.2 F 06/30/17 10:00 Pulse Rate 92 H 06/30/17 10:00 Respiratory Rate 20 06/30/17 10:00 Blood Pressure 153/89 06/30/17 10:00 O2 Sat by Pulse Oximetry (%) 100 06/30/17 09:00 Constitutional: Yes: No Distress, Calm Cardiovascular: Yes: Regular Rate and Rhythm Respiratory: Yes: Regular, CTA Bilaterally Gastrointestinal: Yes: Normal Bowel Sounds, Soft Musculoskeletal: Yes: Other Extremities: Yes: Other Neurological: Yes: Alert, Oriented Psychiatric: Yes: Alert Labs: CBC, BMP 06/30/17 10:40 06/30/17 10:40 INR, PTT INR 1.29 (0.82-1.09) H 06/29/17 06:00 Assessment/Plan Problem List - Problems (1) Sepsis Code(s): A41.9 - SEPSIS, UNSPECIFIED ORGANISM (2) Abscess and cellulitis Code(s): L03.90 - CELLULITIS, UNSPECIFIED L02.91 - CUTANEOUS ABSCESS, UNSPECIFIED (3) Cellulitis and abscess of left leg Code(s): L03.116 - CELLULITIS OF LEFT LOWER LIMB L02.416 - CUTANEOUS ABSCESS OF LEFT LOWER LIMB (4) Intractable vomiting with nausea Code(s): R11.2 - NAUSEA WITH VOMITING, UNSPECIFIED Qualifiers: Vomiting type: unspecified Qualified Code(s): R11.2 - Nausea with vomiting, unspecified; R11.2 - Nausea with vomiting, unspecified (5) Noncompliance with diabetes treatment Code(s): Z91.19 - PATIENT'S NONCOMPLIANCE W OTH MEDICAL TREATMENT AND REGIMEN (6) Diabetic ulcer of lower extremity Code(s): E11.622 - TYPE 2 DIABETES MELLITUS WITH OTHER SKIN ULCER L97.909 - NON-PRS CHRONIC ULC UNSP PRT OF UNSP LOW LEG W UNSP SEVERITY lactic acidosis leukocytosis uti plan stopped abx will watch how the patient does rest as per primary team close monitoring
[2017-06-30] MEDS: D5-1/2NS+20 MEQ KCL - 1,000 ML IV SCH (17:27)
[2017-06-30] MEDS: LIDOCAINE 5% TOPICAL PATCH TP SCH (21:07)
[2017-07-01] MEDS: oxyCODONE HCL 5 MG TABLET PO PRN ×4 (01:32→20:33)
[2017-07-01] MEDS: ACETAMINOPHEN 325 MG TABLET (FP) PO PRN ×3 (01:34→20:34)
[2017-07-01] MEDS: D5-1/2NS+20 MEQ KCL - 1,000 ML IV SCH ×3 (04:00→17:19)
[2017-07-01] MEDS: GABAPENTIN 100 MG CAPSULE (FP) PO SCH ×3 (06:16→22:21)
[2017-07-01] MEDS: HEPARIN NA (PORCINE) 5,000 UNITS/ML 1ML VIAL SQ SCH ×3 (06:16→22:20)
[2017-07-01] MEDS: INSULIN DETEMIR 100 UNITS/ML MDV SQ SCH (06:39)
[2017-07-01] MEDS: INSULIN SLIDING SCALE (NOVOLOG) 1 VIAL SQ SCH ×4 (06:39→22:21)
[2017-07-01] MEDS ORDERED: INSULIN (NOVOLOG) ASPART 100 UNITS/ML 10ML VIAL ONE (06:49)
[2017-07-01 07:49] LABS: BASOPHIL 0.3 % (0-2.0); MCHC 31.8 g/dl (32.0-35.9); MEAN CELL VOLUME 75.3 fl (80-96); MEAN PLT VOLUME 6.8 fl (7.5-11.1); NEUTROPHILS 84.9 % (42.8-82.8); PLATELET COUNT 690 K/MM3 (134-434); RDW 16.2 % (11.9-15.9)
[2017-07-01 08:00] LABS: ANION GAP 8 (8-16); BILIRUBIN,TOTAL 0.2 mg/dL (0.2-1.0); CO2 23 mmol/L (21-32); CREATININE 0.8 mg/dL (0.7-1.3); GLUCOSE,RANDOM 232 mg/dL (74-106); LDH 148 U/L (87-241); SGOT/AST 7 U/L (15-37); SGPT/ALT < 6 U/L (12-78)
[2017-07-01 08:04] LABS: ALK PHOS 332 U/L (45-117); CALCIUM 7.1 mg/dL (8.5-10.1); FERRITIN 151.853 ng/ml (16.4-293.9)
[2017-07-01] MEDS: LIDOCAINE PATCH REMOVAL MC SCH (09:19)
[2017-07-01] MEDS: FAMOTIDINE 20 MG/50 ML IVPB 50 ML IVPB SCH ×2 (09:19→22:20)
[2017-07-01] MEDS: LISINOPRIL 20 MG TABLET (FP) PO SCH (09:19)
[2017-07-01] MEDS: COLLAGENASE CLOSTRIDIUM HIST. 30 GRAMS TUBE TP SCH (09:20)
--- NOTE | 2017-07-01 11:14 | PN ---
Progress Note (short form) - Note Progress Note: Subjective: The patient was seen and examined at the bedside, he is crying stating his leg hurts Abs stopped yesterday, WBC trending up, f/u recommendations from ID Current Medications Generic Name Dose Route Start Last Admin Trade Name Freq PRN Reason Stop Dose Admin Acetaminophen 650 mg 06/20/17 14:04 07/01/17 01:34 Tylenol - PO 650 mg Q4H PRN Administration FEVER OR PAIN Collagenase 1 applic 06/21/17 10:00 07/01/17 09:20 Santyl - TP 1 applic DAILY JESUS Administration Diphenhydramine HCl 25 mg 06/20/17 14:04 Benadryl Injection - IVPB Q8H PRN NAUSEA Gabapentin 100 mg 06/20/17 16:45 07/01/17 06:16 Neurontin - PO 100 mg TID JESUS Administration Heparin Sodium (Porcine) 5,000 unit 06/23/17 22:00 07/01/17 06:16 Heparin - SQ 5,000 unit TID JESUS Administration Famotidine/Sodium Chloride 50 mls @ 100 mls/hr 06/20/17 22:00 07/01/17 09:19 Pepcid 20 Mg Premixed Ivpb - IVPB 100 mls/hr BID JESUS Administration Potassium Chloride/Dextrose/Sod Cl 1,000 mls @ 100 mls/hr 06/27/17 16:15 04:00 D5-1/2ns+20 Meq Kcl - IV 100 mls/hr ASDIR JESUS Administration Insulin Aspart 1 vial 06/20/17 16:30 07/01/17 11:05 Novolog Vial Sliding Scale - SQ Not Given ACHS [facility] Protocol Insulin Detemir 15 units 06/21/17 07:00 07/01/17 06:39 Levemir Vial SQ 15 unit AM JESUS Administration Lidocaine 1 patch 06/20/17 22:00 06/30/17 21:07 Lidoderm Patch - TP 1 patch HS JESUS Administration Lisinopril 20 mg 06/21/17 10:00 07/01/17 09:19 Prinivil PO 20 mg DAILY JESUS Administration Metoclopramide HCl 10 mg 06/26/17 13:52 06/27/17 03:58 Reglan Injection - IVPB 10 mg Q8H PRN Administration NAUSEA AND/OR VOMITING Miscellaneous 1 each 06/21/17 10:00 07/01/17 09:19 Lidoderm Patch Removal MC 1 each DAILY JESUS Administration Ondansetron HCl 4 mg 06/20/17 14:04 06/27/17 15:25 Zofran Injection IVPB 4 mg Q6H PRN Administration NAUSEA Oxycodone HCl 10 mg 06/29/17 20:43 07/01/17 08:39 Roxicodone - PO 10 mg Q6H PRN Administration PAIN Objective: Vital Signs Period Temp Pulse Resp BP Sys/Monet Pulse Ox Last 24 Hr 98.1 F-98.5 F 89-106 18-20 138-157/73-91 98-98 Physical Exam: General: NAD, A&Ox3 Lungs: CTA bilaterally Heart: RRR, S1S2 Abd: Soft, non-tender, non-distended. Normoactive bowel sounds Ext: Left BKA with lateral wound, dressing c/d/i. Right DP/PT 2+ CBCD WBC 13.0 K/mm3 (4.0-10.0) H D 07/01/17 06:00 RBC 3.52 M/mm3 (4.00-5.60) L 07/01/17 06:00 Hgb 8.4 GM/dL (11.7-16.9) L 07/01/17 06:00 Hct 26.5 % (35.4-49) L 07/01/17 06:00 MCV 75.3 fl (80-96) L 07/01/17 06:00 MCHC 31.8 g/dl (32.0-35.9) L 07/01/17 06:00 RDW 16.2 % (11.9-15.9) H 07/01/17 06:00 Plt Count 690 K/MM3 (134-434) H 07/01/17 06:00 MPV 6.8 fl (7.5-11.1) L 07/01/17 06:00 CMP Sodium 139 mmol/L (136-145) 07/01/17 06:00 Potassium 4.2 mmol/L (3.5-5.1) 07/01/17 06:00 Chloride 108 mmol/L (98-107) H 07/01/17 06:00 Carbon Dioxide 23 mmol/L (21-32) 07/01/17 06:00 Anion Gap 8 (8-16) 07/01/17 06:00 BUN 5 mg/dL (7-18) L D 07/01/17 06:00 Creatinine 0.8 mg/dL (0.7-1.3) 07/01/17 06:00 Creat Clearance w eGFR > 60 (>60) 07/01/17 06:00 Random Glucose 232 mg/dL (74-106) H D 07/01/17 06:00 Calcium 7.1 mg/dL (8.5-10.1) L 07/01/17 06:00 Total Bilirubin 0.2 mg/dL (0.2-1.0) D 07/01/17 06:00 AST 7 U/L (15-37) L 07/01/17 06:00 ALT < 6 U/L (12-78) L 07/01/17 06:00 Alkaline Phosphatase 332 U/L (45-117) H 07/01/17 06:00 Total Protein 5.0 g/dl (6.4-8.2) L 07/01/17 06:00 Albumin 1.0 g/dl (3.4-5.0) L 07/01/17 06:00 CARDIAC ENZYMES Creatine Kinase 69 IU/L (39-308) 06/17/17 12:52 Troponin I < 0.02 ng/ml (0.00-0.05) 06/17/17 00:05 Microbiology 06/24/17 16:00 Blood - Peripheral Venous Blood Culture - Final NO GROWTH AFTER 5 DAYS INCUBATION 06/24/17 16:00 Blood - Peripheral Venous Blood Culture - Final NO GROWTH AFTER 5 DAYS INCUBATION 06/23/17 22:00 Nares - Mrsa Screen - Left MRSA Screen - Final NO MRSA ISOLATED 06/23/17 22:00 Nares - Right Nares MRSA Screen - Final NO MRSA ISOLATED 06/17/17 00:30 Blood - Peripheral Venous Blood Culture - Final NO GROWTH AFTER 5 DAYS INCUBATION 06/17/17 00:05 Blood - Peripheral Venous Blood Culture - Final Lactobacillus Species 06/17/17 00:41 Stump Gram Stain - Final 06/17/17 00:41 Stump Wound Culture - Final Staphylococcus Aureus Streptococcus Viridans Yeast Like Organism 06/17/17 06:30 Urine - Urine Clean Catch Urine Culture - Final Staphylococcus Aureus Assessment: This is a 47 year old male with PMHx of DM, multiple soft tissue infections, hx of MRSA, s/p left BKA who presented to the ED with worsening posterior left leg pain x1 week. Plan: 1) ID: Sepsis 2/2 diabetic wound - WBC trending up today - Abx stopped yesterday - Afebrile - Cultures as above - Apppreciate ID consult Left lower extremity pain - Likely strained hamstring, continue PT - Per vascular no acute pathology can be seen - Awaiting reevluation as continues to have leukocytosis 2) Endocrine: IDDM - Levemir 15u sq AM - BGM ACHS - ISS ACHS 3) F/E/N: - Diabetic diet, soft - Monitor electrolytes - Hypophosphatemia: f/u level today - Severe hypoalbuminemia 4) Prophylaxis: - Heparin 5,000u sq tid - PT 5) Dispo: - Requires continued inpatient care - Will need SNF, unable to transfer from bed to wheelchair on his own CODE STATUS: FULL CODE Visit type - Emergency Visit Emergency Visit: Yes ED Registration Date: 06/17/17 Care time: The patient presented to the Emergency Department on the above date and was hospitalized for further evaluation of their emergent condition. - New Patient This patient is new to me today: No - Critical Care Critical Care patient: No
--- NOTE | 2017-07-01 14:01 | PN ---
Progress Note, Physician History of Present Illness: main issue is pain except pain patient does not have any complaints - Current Medication List Current Medications: Active Medications Acetaminophen (Tylenol -) 650 mg PO Q4H PRN PRN Reason: FEVER OR PAIN Last Admin: 07/01/17 01:34 Dose: 650 mg Collagenase (Santyl -) 1 applic TP DAILY [facility] Last Admin: 07/01/17 09:20 Dose: 1 applic Diphenhydramine HCl (Benadryl Injection -) 25 mg IVPB Q8H PRN PRN Reason: NAUSEA Gabapentin (Neurontin -) 100 mg PO TID [facility] Last Admin: 07/01/17 13:23 Dose: 100 mg Heparin Sodium (Porcine) (Heparin -) 5,000 unit SQ TID [facility] Last Admin: 07/01/17 13:23 Dose: 5,000 unit Famotidine/Sodium Chloride (Pepcid 20 Mg Premixed Ivpb -) 50 mls @ 100 mls/hr IVPB BID [facility] Last Admin: 07/01/17 09:19 Dose: 100 mls/hr Potassium Chloride/Dextrose/Sod Cl (D5-1/2ns+20 Meq Kcl -) 1,000 mls @ 100 mls/ hr IV ASDIR [facility] Last Admin: 07/01/17 04:00 Dose: 100 mls/hr Insulin Aspart (Novolog Vial Sliding Scale -) 1 vial SQ ACHS [facility] PRN Reason: Protocol Last Admin: 07/01/17 11:05 Dose: Not Given Insulin Detemir (Levemir Vial) 15 units SQ AM [facility] Last Admin: 07/01/17 06:39 Dose: 15 unit Lidocaine (Lidoderm Patch -) 1 patch TP HS [facility] Last Admin: 06/30/17 21:07 Dose: 1 patch Lisinopril (Prinivil) 20 mg PO DAILY [facility] Last Admin: 07/01/17 09:19 Dose: 20 mg Metoclopramide HCl (Reglan Injection -) 10 mg IVPB Q8H PRN PRN Reason: NAUSEA AND/OR VOMITING Last Admin: 06/27/17 03:58 Dose: 10 mg Miscellaneous (Lidoderm Patch Removal) 1 each MC DAILY [facility] Last Admin: 07/01/17 09:19 Dose: 1 each Ondansetron HCl (Zofran Injection) 4 mg IVPB Q6H PRN PRN Reason: NAUSEA Last Admin: 06/27/17 15:25 Dose: 4 mg Oxycodone HCl (Roxicodone -) 10 mg PO Q6H PRN PRN Reason: PAIN Last Admin: 07/01/17 08:39 Dose: 10 mg - Objective Vital Signs: Vital Signs Temperature 98.5 F 07/01/17 08:41 Pulse Rate 103 H 07/01/17 08:41 Respiratory Rate 18 07/01/17 08:41 Blood Pressure 153/90 07/01/17 08:41 O2 Sat by Pulse Oximetry (%) 98 07/01/17 09:00 Constitutional: Yes: No Distress, Calm Cardiovascular: Yes: Regular Rate and Rhythm Respiratory: Yes: Regular, CTA Bilaterally Gastrointestinal: Yes: Normal Bowel Sounds, Soft Musculoskeletal: Yes: Other Extremities: Yes: Other Integumentary: Yes: Other Wound/Incision: Yes: Dressing Dry and Intact Neurological: Yes: Alert, Oriented Psychiatric: Yes: Alert, Oriented Labs: CBC, BMP 07/01/17 06:00 07/01/17 06:00 INR, PTT INR 1.29 (0.82-1.09) H 06/29/17 06:00 Assessment/Plan Problem List - Problems (1) Sepsis Code(s): A41.9 - SEPSIS, UNSPECIFIED ORGANISM (2) Abscess and cellulitis Code(s): L03.90 - CELLULITIS, UNSPECIFIED L02.91 - CUTANEOUS ABSCESS, UNSPECIFIED (3) Cellulitis and abscess of left leg Code(s): L03.116 - CELLULITIS OF LEFT LOWER LIMB L02.416 - CUTANEOUS ABSCESS OF LEFT LOWER LIMB (4) Intractable vomiting with nausea Code(s): R11.2 - NAUSEA WITH VOMITING, UNSPECIFIED Qualifiers: Vomiting type: unspecified Qualified Code(s): R11.2 - Nausea with vomiting, unspecified; R11.2 - Nausea with vomiting, unspecified (5) Noncompliance with diabetes treatment Code(s): Z91.19 - PATIENT'S NONCOMPLIANCE W OTH MEDICAL TREATMENT AND REGIMEN (6) Diabetic ulcer of lower extremity Code(s): E11.622 - TYPE 2 DIABETES MELLITUS WITH OTHER SKIN ULCER L97.909 - NON-PRS CHRONIC ULC UNSP PRT OF UNSP LOW LEG W UNSP SEVERITY lactic acidosis leukocytosis uti patients wbc has jumped up after stopping abx also i can feel a little bit of warmth in the post part of the leg this is worrisome plan i am going to restart abx will see how wbc trends close follow up rest as per primary team
[2017-07-01] MEDS: PIPERACILLIN/TAZOB 3.375 GM 50 ML IVPB SCH ×2 (17:19→19:44)
[2017-07-01] MEDS: LIDOCAINE 5% TOPICAL PATCH TP SCH (22:20)
[2017-07-02] MEDS: PIPERACILLIN/TAZOB 3.375 GM 50 ML IVPB SCH ×3 (01:33→17:22)
[2017-07-02] MEDS: D5-1/2NS+20 MEQ KCL - 1,000 ML IV SCH ×3 (01:34→18:11)
[2017-07-02] MEDS: oxyCODONE HCL 5 MG TABLET PO PRN ×4 (02:45→21:58)
[2017-07-02] MEDS: ACETAMINOPHEN 325 MG TABLET (FP) PO PRN ×3 (02:46→21:56)
[2017-07-02 06:37] LABS: SERUM IRON 9 ug/dL (38-169); TOTAL IRON BINDING CAPACITY 101 ug/dL (250-450); UIBC 92 ug/dL (111-343)
[2017-07-02] MEDS: INSULIN DETEMIR 100 UNITS/ML MDV SQ SCH (06:42)
[2017-07-02] MEDS: GABAPENTIN 100 MG CAPSULE (FP) PO SCH ×3 (06:42→21:53)
[2017-07-02] MEDS: HEPARIN NA (PORCINE) 5,000 UNITS/ML 1ML VIAL SQ SCH ×3 (06:42→21:54)
[2017-07-02] MEDS: INSULIN SLIDING SCALE (NOVOLOG) 1 VIAL SQ SCH ×4 (06:42→21:54)
[2017-07-02] MEDS ORDERED: INSULIN (NOVOLOG) ASPART 100 UNITS/ML 10ML VIAL ONE (06:50)
[2017-07-02 07:55] LABS: ANION GAP 10 (8-16); CALCIUM 7.1 mg/dL (8.5-10.1); CO2 22 mmol/L (21-32); GLUCOSE,RANDOM 234 mg/dL (74-106)
[2017-07-02 07:59] LABS: ALK PHOS 320 U/L (45-117); BILIRUBIN,TOTAL 0.6 mg/dL (0.2-1.0); CREATININE 0.7 mg/dL (0.7-1.3); SGOT/AST 10 U/L (15-37); SGPT/ALT < 6 U/L (12-78); TOT PROT 5.2 g/dl (6.4-8.2)
[2017-07-02 08:15] LABS: BASOPHIL 0.2 % (0-2.0); EOSINOPHIL 1.7 % (0-4.5); MCH 24.1 pg (25.7-33.7); MEAN CELL VOLUME 75.2 fl (80-96); MEAN PLT VOLUME 6.5 fl (7.5-11.1); NEUTROPHILS 83.5 % (42.8-82.8); PLATELET COUNT 602 K/MM3 (134-434); RDW 16.8 % (11.9-15.9); WHITE BLOOD COUNT 13.9 K/mm3 (4.0-10.0)
[2017-07-02] MEDS: LISINOPRIL 20 MG TABLET (FP) PO SCH (10:18)
[2017-07-02] MEDS: FAMOTIDINE 20 MG/50 ML IVPB 50 ML IVPB SCH ×2 (10:18→21:53)
[2017-07-02] MEDS: COLLAGENASE CLOSTRIDIUM HIST. 30 GRAMS TUBE TP SCH (10:19)
[2017-07-02] MEDS: LIDOCAINE PATCH REMOVAL MC SCH (10:22)
[2017-07-02] MEDS ORDERED: DOCUSATE SODIUM 100 MG CAPSULE (FP) PO PRN (11:53)
--- NOTE | 2017-07-02 11:55 | PN ---
Progress Note (short form) - Note Progress Note: Subjective: The patient was seen and examined at the bedside, he is crying stating his leg hurts and is refusing to answer any of my questions Current Medications Generic Name Dose Route Start Last Admin Trade Name Freq PRN Reason Stop Dose Admin Acetaminophen 650 mg 06/20/17 14:04 07/02/17 10:17 Tylenol - PO 650 mg Q4H PRN Administration FEVER OR PAIN Collagenase 1 applic 06/21/17 10:00 07/02/17 10:19 Santyl - TP 1 applic DAILY JESUS Administration Diphenhydramine HCl 25 mg 06/20/17 14:04 Benadryl Injection - IVPB Q8H PRN NAUSEA Gabapentin 100 mg 06/20/17 16:45 07/02/17 06:42 Neurontin - PO 100 mg TID JESUS Administration Heparin Sodium (Porcine) 5,000 unit 06/23/17 22:00 07/02/17 06:42 Heparin - SQ 5,000 unit TID JESUS Administration Famotidine/Sodium Chloride 50 mls @ 100 mls/hr 06/20/17 22:00 07/02/17 10:18 Pepcid 20 Mg Premixed Ivpb - IVPB 100 mls/hr BID JESUS Administration Potassium Chloride/Dextrose/Sod Cl 1,000 mls @ 100 mls/hr 06/27/17 16:15 01:34 D5-1/2ns+20 Meq Kcl - IV 100 mls/hr ASDIR JESUS Administration Piperacillin/Tazobactam/Dextrose 50 mls @ 100 mls/hr 07/01/17 15:00 07/02/17 11 :01 Zosyn 3.375gm Ivpb (Premix) IVPB 100 mls/hr Q8H-IV JESUS Administration Protocol Insulin Aspart 1 vial 06/20/17 16:30 07/02/17 11:41 Novolog Vial Sliding Scale - SQ Not Given ACHS [facility] Protocol Insulin Detemir 15 units 06/21/17 07:00 07/02/17 06:42 Levemir Vial SQ 15 unit AM JESUS Administration Lidocaine 1 patch 06/20/17 22:00 07/01/17 22:20 Lidoderm Patch - TP 1 patch HS JESUS Administration Lisinopril 20 mg 06/21/17 10:00 07/02/17 10:18 Prinivil PO 20 mg DAILY JESUS Administration Metoclopramide HCl 10 mg 06/26/17 13:52 06/27/17 03:58 Reglan Injection - IVPB 10 mg Q8H PRN Administration NAUSEA AND/OR VOMITING Miscellaneous 1 each 06/21/17 10:00 07/02/17 10:22 Lidoderm Patch Removal MC 1 each DAILY JESUS Administration Ondansetron HCl 4 mg 06/20/17 14:04 06/27/17 15:25 Zofran Injection IVPB 4 mg Q6H PRN Administration NAUSEA Oxycodone HCl 10 mg 06/29/17 20:43 07/02/17 10:18 Roxicodone - PO 10 mg Q6H PRN Administration PAIN Objective: Vital Signs Period Temp Pulse Resp BP Sys/Monet Pulse Ox Last 24 Hr 98.7 F-99.8 F 96-105 18-20 137-157/73-89 98 Physical Exam: Patient crying and screaming with his face in the pillow and is hitting the mattress saying he wants "IV pain medicine" Unable to perform physical exam CBCD WBC 13.9 K/mm3 (4.0-10.0) H 07/02/17 06:00 RBC 3.40 M/mm3 (4.00-5.60) L 07/02/17 06:00 Hgb 8.2 GM/dL (11.7-16.9) L 07/02/17 06:00 Hct 25.6 % (35.4-49) L 07/02/17 06:00 MCV 75.2 fl (80-96) L 07/02/17 06:00 MCHC 32.0 g/dl (32.0-35.9) 07/02/17 06:00 RDW 16.8 % (11.9-15.9) H 07/02/17 06:00 Plt Count 602 K/MM3 (134-434) H 07/02/17 06:00 MPV 6.5 fl (7.5-11.1) L 07/02/17 06:00 CMP Sodium 136 mmol/L (136-145) 07/02/17 06:00 Potassium 4.3 mmol/L (3.5-5.1) 07/02/17 06:00 Chloride 104 mmol/L (98-107) 07/02/17 06:00 Carbon Dioxide 22 mmol/L (21-32) 07/02/17 06:00 Anion Gap 10 (8-16) 07/02/17 06:00 BUN 5 mg/dL (7-18) L 07/02/17 06:00 Creatinine 0.7 mg/dL (0.7-1.3) 07/02/17 06:00 Creat Clearance w eGFR > 60 (>60) 07/02/17 06:00 Random Glucose 234 mg/dL (74-106) H 07/02/17 06:00 Calcium 7.1 mg/dL (8.5-10.1) L 07/02/17 06:00 Total Bilirubin 0.6 mg/dL (0.2-1.0) D 07/02/17 06:00 AST 10 U/L (15-37) L D 07/02/17 06:00 ALT < 6 U/L (12-78) L 07/02/17 06:00 Alkaline Phosphatase 320 U/L (45-117) H 07/02/17 06:00 Total Protein 5.2 g/dl (6.4-8.2) L 07/02/17 06:00 Albumin 1.0 g/dl (3.4-5.0) L 07/02/17 06:00 CARDIAC ENZYMES Creatine Kinase 69 IU/L (39-308) 06/17/17 12:52 Troponin I < 0.02 ng/ml (0.00-0.05) 06/17/17 00:05 Microbiology 06/24/17 16:00 Blood - Peripheral Venous Blood Culture - Final NO GROWTH AFTER 5 DAYS INCUBATION 06/24/17 16:00 Blood - Peripheral Venous Blood Culture - Final NO GROWTH AFTER 5 DAYS INCUBATION 06/23/17 22:00 Nares - Mrsa Screen - Left MRSA Screen - Final NO MRSA ISOLATED 06/23/17 22:00 Nares - Right Nares MRSA Screen - Final NO MRSA ISOLATED 06/17/17 00:30 Blood - Peripheral Venous Blood Culture - Final NO GROWTH AFTER 5 DAYS INCUBATION 06/17/17 00:05 Blood - Peripheral Venous Blood Culture - Final Lactobacillus Species 06/17/17 00:41 Stump Gram Stain - Final 06/17/17 00:41 Stump Wound Culture - Final Staphylococcus Aureus Streptococcus Viridans Yeast Like Organism 06/17/17 06:30 Urine - Urine Clean Catch Urine Culture - Final Staphylococcus Aureus Assessment: This is a 47 year old male with PMHx of DM, multiple soft tissue infections, hx of MRSA, s/p left BKA who presented to the ED with worsening posterior left leg pain x1 week. Plan: 1) ID: Sepsis 2/2 diabetic wound - WBC continue to trend up - Abx restarted yesterday per ID - Remains afebrile - Apppreciate ID consult Left lower extremity pain - Likely strained hamstring, continue PT - Per vascular no acute pathology can be seen 2) Endocrine: IDDM - Levemir 15u sq AM - BGM ACHS - ISS ACHS 3) F/E/N: - Diabetic diet, soft - Monitor electrolytes - Hypophosphatemia: resolved - Severe hypoalbuminemia 4) Prophylaxis: - Heparin 5,000u sq tid - PT 5) Dispo: - Requires continued inpatient care - Will need SNF, unable to transfer from bed to wheelchair on his own CODE STATUS: FULL CODE Visit type - Emergency Visit Emergency Visit: Yes ED Registration Date: 06/17/17 Care time: The patient presented to the Emergency Department on the above date and was hospitalized for further evaluation of their emergent condition. - New Patient This patient is new to me today: No - Critical Care Critical Care patient: No
--- NOTE | 2017-07-02 12:40 | PN ---
Progress Note, Physician History of Present Illness: looks to be in no distress no new issues - Current Medication List Current Medications: Active Medications Acetaminophen (Tylenol -) 650 mg PO Q4H PRN PRN Reason: FEVER OR PAIN Last Admin: 07/02/17 10:17 Dose: 650 mg Collagenase (Santyl -) 1 applic TP DAILY [facility] Last Admin: 07/02/17 10:19 Dose: 1 applic Diphenhydramine HCl (Benadryl Injection -) 25 mg IVPB Q8H PRN PRN Reason: NAUSEA Docusate Sodium (Colace -) 100 mg PO Q8H PRN PRN Reason: CONSTIPATION Gabapentin (Neurontin -) 100 mg PO TID [facility] Last Admin: 07/02/17 06:42 Dose: 100 mg Heparin Sodium (Porcine) (Heparin -) 5,000 unit SQ TID [facility] Last Admin: 07/02/17 06:42 Dose: 5,000 unit Famotidine/Sodium Chloride (Pepcid 20 Mg Premixed Ivpb -) 50 mls @ 100 mls/hr IVPB BID [facility] Last Admin: 07/02/17 10:18 Dose: 100 mls/hr Potassium Chloride/Dextrose/Sod Cl (D5-1/2ns+20 Meq Kcl -) 1,000 mls @ 100 mls/ hr IV ASDIR [facility] Last Admin: 07/02/17 01:34 Dose: 100 mls/hr Piperacillin/Tazobactam/Dextrose (Zosyn 3.375gm Ivpb (Premix)) 50 mls @ 100 mls /hr IVPB Q8H-IV [facility]ESUS PRN Reason: Protocol Last Admin: 07/02/17 11:01 Dose: 100 mls/hr Insulin Aspart (Novolog Vial Sliding Scale -) 1 vial SQ ACHS [facility] PRN Reason: Protocol Last Admin: 07/02/17 11:41 Dose: Not Given Insulin Detemir (Levemir Vial) 15 units SQ AM [facility] Last Admin: 07/02/17 06:42 Dose: 15 unit Lidocaine (Lidoderm Patch -) 1 patch TP HS [facility] Last Admin: 07/01/17 22:20 Dose: 1 patch Lisinopril (Prinivil) 20 mg PO DAILY [facility] Last Admin: 07/02/17 10:18 Dose: 20 mg Metoclopramide HCl (Reglan Injection -) 10 mg IVPB Q8H PRN PRN Reason: NAUSEA AND/OR VOMITING Last Admin: 06/27/17 03:58 Dose: 10 mg Miscellaneous (Lidoderm Patch Removal) 1 each MC DAILY [facility]ESUS Last Admin: 07/02/17 10:22 Dose: 1 each Ondansetron HCl (Zofran Injection) 4 mg IVPB Q6H PRN PRN Reason: NAUSEA Last Admin: 06/27/17 15:25 Dose: 4 mg Oxycodone HCl (Roxicodone -) 10 mg PO Q6H PRN PRN Reason: PAIN Last Admin: 07/02/17 10:18 Dose: 10 mg Polyethylene Glycol (Miralax (For Daily Use) -) 17 gm PO DAILY JESUS - Objective Vital Signs: Vital Signs Temperature 98.7 F 07/02/17 08:48 Pulse Rate 96 H 07/02/17 08:48 Respiratory Rate 20 07/02/17 08:48 Blood Pressure 157/89 07/02/17 08:48 O2 Sat by Pulse Oximetry (%) 100 07/02/17 09:00 Constitutional: Yes: No Distress, Calm Cardiovascular: Yes: Regular Rate and Rhythm Respiratory: Yes: Regular Gastrointestinal: Yes: Normal Bowel Sounds, Soft Musculoskeletal: Yes: Other Extremities: Yes: Other Neurological: Yes: Alert, Oriented Psychiatric: Yes: Alert, Oriented Labs: CBC, BMP 07/02/17 06:00 07/02/17 06:00 INR, PTT INR 1.29 (0.82-1.09) H 06/29/17 06:00 Assessment/Plan Problem List - Problems (1) Sepsis Code(s): A41.9 - SEPSIS, UNSPECIFIED ORGANISM (2) Abscess and cellulitis Code(s): L03.90 - CELLULITIS, UNSPECIFIED L02.91 - CUTANEOUS ABSCESS, UNSPECIFIED (3) Cellulitis and abscess of left leg Code(s): L03.116 - CELLULITIS OF LEFT LOWER LIMB L02.416 - CUTANEOUS ABSCESS OF LEFT LOWER LIMB (4) Intractable vomiting with nausea Code(s): R11.2 - NAUSEA WITH VOMITING, UNSPECIFIED Qualifiers: Vomiting type: unspecified Qualified Code(s): R11.2 - Nausea with vomiting, unspecified; R11.2 - Nausea with vomiting, unspecified (5) Noncompliance with diabetes treatment Code(s): Z91.19 - PATIENT'S NONCOMPLIANCE W OTH MEDICAL TREATMENT AND REGIMEN (6) Diabetic ulcer of lower extremity Code(s): E11.622 - TYPE 2 DIABETES MELLITUS WITH OTHER SKIN ULCER L97.909 - NON-PRS CHRONIC ULC UNSP PRT OF UNSP LOW LEG W UNSP SEVERITY lactic acidosis leukocytosis uti patient loks much better wbc marginally up plan continue abx for now physio rest as per primary team
[2017-07-02] MEDS: POLYETHYLENE GLYCOL 3350 119 GM BTL PO SCH (13:55)
[2017-07-02] MEDS ORDERED: VANCOMYCIN 1,250 MG in SODIUM CHLORIDE 250 ML IVPB ONE (19:45)
[2017-07-02 20:35] LABS: URINE APPEARANCE CLEAR; URINE BILIRUBIN NEGATIVE (NEGATIVE); URINE BLOOD NEGATIVE (NEGATIVE); URINE COLOR STRAW; URINE GLUCOSE (UA) 2+ (NEGATIVE); URINE KETONE NEGATIVE (NEGATIVE); URINE NITRITE NEGATIVE (NEGATIVE); URINE UROBILINOGEN NEGATIVE mg/dL (0.2-1.0)
[2017-07-02 21:06] LABS: URINE PROTEIN 2+ (NEGATIVE)
[2017-07-02 21:08] LABS: URINE MUCUS RARE; URINE RBC 1 /hpf (0-3); URINE WBC <1 /hpf (3-5)
[2017-07-02] MEDS: LIDOCAINE 5% TOPICAL PATCH TP SCH (21:54)
[2017-07-02 22:41] LABS: URINE LEUK ESTERASE Negative (NEGATIVE)
[2017-07-03] MEDS: PIPERACILLIN/TAZOB 3.375 GM 50 ML IVPB SCH ×3 (01:24→18:31)
[2017-07-03] MEDS: D5-1/2NS+20 MEQ KCL - 1,000 ML IV SCH ×2 (04:05→15:57)
[2017-07-03] MEDS: oxyCODONE HCL 5 MG TABLET PO PRN ×3 (04:06→18:32)
[2017-07-03] MEDS: ACETAMINOPHEN 325 MG TABLET (FP) PO PRN ×4 (04:08→21:34)
[2017-07-03] MEDS: HEPARIN NA (PORCINE) 5,000 UNITS/ML 1ML VIAL SQ SCH ×3 (06:29→21:33)
[2017-07-03] MEDS: GABAPENTIN 100 MG CAPSULE (FP) PO SCH ×3 (06:30→21:34)
[2017-07-03] MEDS: INSULIN DETEMIR 100 UNITS/ML MDV SQ SCH (06:31)
[2017-07-03] MEDS: INSULIN SLIDING SCALE (NOVOLOG) 1 VIAL SQ SCH ×4 (06:32→21:34)
[2017-07-03] MEDS ORDERED: INSULIN (NOVOLOG) ASPART 100 UNITS/ML 10ML VIAL ONE ×2 (07:01→21:14)
[2017-07-03] MEDS ORDERED: INSULIN DETEMIR 100 UNITS/ML MDV SQ ONE (07:01)
[2017-07-03 07:08] LABS: MCH 24.1 pg (25.7-33.7); MCHC 32.8 g/dl (32.0-35.9); MEAN CELL VOLUME 73.5 fl (80-96); MEAN PLT VOLUME 6.4 fl (7.5-11.1); PLATELET COUNT 627 K/MM3 (134-434); RDW 16.6 % (11.9-15.9); WHITE BLOOD COUNT 12.4 K/mm3 (4.0-10.0)
[2017-07-03 07:30] LABS: ANION GAP 9 (8-16); CALCIUM 7.2 mg/dL (8.5-10.1); CO2 24 mmol/L (21-32); CREATININE 0.8 mg/dL (0.7-1.3); GLUCOSE,RANDOM 282 mg/dL (74-106)
[2017-07-03 07:33] LABS: ALK PHOS 390 U/L (45-117); BILIRUBIN,TOTAL 0.3 mg/dL (0.2-1.0); SGOT/AST 8 U/L (15-37); SGPT/ALT < 6 U/L (12-78); TOT PROT 5.4 g/dl (6.4-8.2)
[2017-07-03] MEDS: LISINOPRIL 20 MG TABLET (FP) PO SCH (10:33)
[2017-07-03] MEDS: POLYETHYLENE GLYCOL 3350 119 GM BTL PO SCH (10:33)
[2017-07-03] MEDS: FAMOTIDINE 20 MG/50 ML IVPB 50 ML IVPB SCH ×2 (10:33→21:34)
[2017-07-03] MEDS: LIDOCAINE PATCH REMOVAL MC SCH (10:33)
[2017-07-03] MEDS: COLLAGENASE CLOSTRIDIUM HIST. 30 GRAMS TUBE TP SCH (10:34)
--- NOTE | 2017-07-03 12:34 | PN ---
Physical Exam: SUBJECTIVE: Patient seen and examined at the bed side. He states he is in pain from his left leg wound. OBJECTIVE: Left lateral wound, now with sero sang drainage, painful to touch, +odor from this wound, surround skin tender to touch. Spoke to Dr. Jennings and reported same. Wound cleansed by me with sterile saline, sterile dressing applied Vital Signs Period Temp Pulse Resp BP Sys/Monet Pulse Ox Last 24 Hr 97.8 F-101.2 F 73-112 18-20 131-152/68-98 98 GENERAL: The patient is awake, alert, and fully oriented, very anxious, cooperative HEAD: Normal with no signs of trauma. EYES: PERRL, extraocular movements intact, sclera anicteric, conjunctiva clear. No ptosis. ENT: Ears normal, nares patent, oropharynx clear without exudates, moist mucous membranes. NECK: Trachea midline, full range of motion, supple. LUNGS: Breath sounds equal, clear to auscultation bilaterally, no wheezes HEART: Regular rate and rhythm, S1, S2 without murmur, rub or gallop. ABDOMEN: Soft, nontender, nondistended, normoactive bowel sounds, no guarding, no rebound, no hepatosplenomegaly, no masses. EXTREMITIES: Left BKA, L lateral knee wound, clean, no drainage, open healed RUE graft NEUROLOGICAL: Normal speech, gait not observed. PSYCH: Normal mood, normal affect. Laboratory Results - last 24 hr 07/02/17 07/02/17 07/02/17 16:19 20:10 21:52 WBC RBC Hgb Hct MCV MCH MCHC RDW Plt Count MPV Sodium Potassium Chloride Carbon Dioxide Anion Gap BUN Creatinine Creat Clearance w eGFR POC Glucometer 167 257 Random Glucose Calcium Total Bilirubin AST ALT Alkaline Phosphatase Total Protein Albumin Urine Color Straw Urine Appearance Clear Urine pH 7.0 D Ur Specific Breeden 1.020 Urine Protein 2+ H Urine Glucose (UA) 2+ H Urine Ketones Negative Urine Blood Negative Urine Nitrite Negative Urine Bilirubin Negative Urine Urobilinogen Negative Ur Leukocyte Esterase Negative Urine RBC 1 Urine WBC <1 Ur Epithelial Cells Rare Urine Mucus Rare 07/03/17 07/03/17 07/03/17 06:00 06:00 06:29 WBC 12.4 H RBC 3.50 L Hgb 8.4 L Hct 25.7 L MCV 73.5 L MCH 24.1 L MCHC 32.8 RDW 16.6 H Plt Count 627 H MPV 6.4 L Sodium 137 Potassium 4.2 Chloride 104 Carbon Dioxide 24 Anion Gap 9 BUN 5 L Creatinine 0.8 Creat Clearance w eGFR > 60 POC Glucometer 278 Random Glucose 282 H D Calcium 7.2 L Total Bilirubin 0.3 D AST 8 L ALT < 6 L Alkaline Phosphatase 390 H D Total Protein 5.4 L Albumin 1.0 L Urine Color Urine Appearance Urine pH Ur Specific Breeden Urine Protein Urine Glucose (UA) Urine Ketones Urine Blood Urine Nitrite Urine Bilirubin Urine Urobilinogen Ur Leukocyte Esterase Urine RBC Urine WBC Ur Epithelial Cells Urine Mucus Active Medications Generic Name Dose Route Start Last Admin Trade Name Freq PRN Reason Stop Dose Admin Acetaminophen 650 mg 06/20/17 14:04 07/03/17 10:54 Tylenol - PO 650 mg Q4H PRN Administration FEVER OR PAIN Collagenase 1 applic 06/21/17 10:00 07/03/17 10:34 Santyl - TP 1 applic DAILY JESUS Administration Diphenhydramine HCl 25 mg 06/20/17 14:04 Benadryl Injection - IVPB Q8H PRN NAUSEA Docusate Sodium 100 mg 07/02/17 11:53 07/02/17 21:53 Colace - PO 100 mg Q8H PRN Administration CONSTIPATION Gabapentin 100 mg 06/20/17 16:45 07/03/17 06:30 Neurontin - PO 100 mg TID JESUS Administration Heparin Sodium (Porcine) 5,000 unit 06/23/17 22:00 07/03/17 06:29 Heparin - SQ 5,000 unit TID JESUS Administration Famotidine/Sodium Chloride 50 mls @ 100 mls/hr 06/20/17 22:00 07/03/17 10:33 Pepcid 20 Mg Premixed Ivpb - IVPB 100 mls/hr BID JESUS Administration Potassium Chloride/Dextrose/Sod Cl 1,000 mls @ 100 mls/hr 06/27/17 16:15 04:05 D5-1/2ns+20 Meq Kcl - IV 100 mls/hr ASDIR JESUS Administration Piperacillin/Tazobactam/Dextrose 50 mls @ 100 mls/hr 07/01/17 15:00 07/03/17 10 :39 Zosyn 3.375gm Ivpb (Premix) IVPB 100 mls/hr Q8H-IV JESUS Administration Protocol Insulin Aspart 1 vial 06/20/17 16:30 07/03/17 06:32 Novolog Vial Sliding Scale - SQ 3 units ACHS JESUS Administration Protocol Insulin Detemir 15 units 06/21/17 07:00 07/03/17 06:31 Levemir Vial SQ 15 unit AM JESUS Administration Lidocaine 1 patch 06/20/17 22:00 07/02/17 21:54 Lidoderm Patch - TP 1 patch HS JESUS Administration Lisinopril 20 mg 06/21/17 10:00 07/03/17 10:33 Prinivil PO 20 mg DAILY JESUS Administration Metoclopramide HCl 10 mg 06/26/17 13:52 06/27/17 03:58 Reglan Injection - IVPB 10 mg Q8H PRN Administration NAUSEA AND/OR VOMITING Miscellaneous 1 each 06/21/17 10:00 07/03/17 10:33 Lidoderm Patch Removal MC 1 each DAILY JES[facility] Administration Ondansetron HCl 4 mg 06/20/17 14:04 06/27/17 15:25 Zofran Injection IVPB 4 mg Q6H PRN Administration NAUSEA Oxycodone HCl 10 mg 06/29/17 20:43 07/03/17 10:53 Roxicodone - PO 10 mg Q6H PRN Administration PAIN Polyethylene Glycol 17 gm 07/02/17 12:00 07/03/17 10:33 Miralax (For Daily Use) - PO Not Given DAILY [facility] ASSESSMENT/PLAN: Patient is a 47 year old male with a significant past medical history of diabetes mellitus, multiple soft tissue infections and left BKA. He comes to the ED on 06/17/2017 complaining of left leg pain for the past week. The pain is located behind left knee and radiates up the posterior thigh. This pain is associated with fever, chills, nausea, vomiting and body aches. He is currently seeing Dr. Jennings at the wound care clinic and is undergoing hyperbaric treatment. ID: Sepsis secondary to diabetic wound, acute A/P: WBC began to trend down on 06/29/17 then trended back up Noted that his left leg wound wound appears to be draining sero sang with foul odor, surrounding skin tender to touch: contacted Dr. Jennings Pus expressed from wound by Dr. Jennings, pt will go to OR for decompression on Monday He is on Zosyn and now Vanco added by ID Wound care daily as follows: Cleanse wound with sterile saline, apply dry sterile dressing: wound care changed daily and if soiled Monitor labs, vitals for OR on Monday07/05/2017, NPO at midnight, stop heparin monday fan. Endocrine: Hyperglycemia vs DKA, resolved A/P: Anion gap now closed On Levemir 15 units daily Becomes symptomatic when blood sugars go below 150, goal is to keep BS around 150-200s Cardiology: Hypertension, not at goal A/P: Lisinopril uptitrated to 30mg daily on 07/03 Monitor BP Renal: KENDRICK A/P: Resolved, monitor daily labs F.E.N. Fluids: d5 09/12 20meq @ 100 Electrolytes: monitor electrolytes Nutrition: diabetic diet, NPO on 07/05/2017 for OR Prophylaxis: DVT: heparin BID GI: pepcid, reglan Disposition: Full code. Visit type - Emergency Visit Emergency Visit: Yes ED Registration Date: 06/17/17 Care time: The patient presented to the Emergency Department on the above date and was hospitalized for further evaluation of their emergent condition. - New Patient This patient is new to me today: No - Critical Care Critical Care patient: No - Discharge Referral Referred to [facility] Med P.C.: No
--- NOTE | 2017-07-03 14:16 | PN ---
Progress Note (short form) - Note Progress Note: VAscular Surgery Pt seen and examined. On IV antibiotics. Dressing changed. Left thigh wound palpated and squeezed. Pus expressed. Will need to open in OR to decompress area. Will do mon. Costa Jennings DO
--- NOTE | 2017-07-03 14:18 | PN ---
Progress Note, Physician History of Present Illness: pain main issues vascular note noted pus expressed - Current Medication List Current Medications: Active Medications Acetaminophen (Tylenol -) 650 mg PO Q4H PRN PRN Reason: FEVER OR PAIN Last Admin: 07/03/17 10:54 Dose: 650 mg Collagenase (Santyl -) 1 applic TP DAILY [facility] Last Admin: 07/03/17 10:34 Dose: 1 applic Diphenhydramine HCl (Benadryl Injection -) 25 mg IVPB Q8H PRN PRN Reason: NAUSEA Docusate Sodium (Colace -) 100 mg PO Q8H PRN PRN Reason: CONSTIPATION Last Admin: 07/02/17 21:53 Dose: 100 mg Gabapentin (Neurontin -) 100 mg PO TID [facility] Last Admin: 07/03/17 14:06 Dose: 100 mg Heparin Sodium (Porcine) (Heparin -) 5,000 unit SQ TID [facility] Last Admin: 07/03/17 14:06 Dose: 5,000 unit Famotidine/Sodium Chloride (Pepcid 20 Mg Premixed Ivpb -) 50 mls @ 100 mls/hr IVPB BID [facility] Last Admin: 07/03/17 10:33 Dose: 100 mls/hr Potassium Chloride/Dextrose/Sod Cl (D5-1/2ns+20 Meq Kcl -) 1,000 mls @ 100 mls/ hr IV ASDIR [facility] Last Admin: 07/03/17 04:05 Dose: 100 mls/hr Piperacillin/Tazobactam/Dextrose (Zosyn 3.375gm Ivpb (Premix)) 50 mls @ 100 mls /hr IVPB Q8H-IV [facility] PRN Reason: Protocol Last Admin: 07/03/17 10:39 Dose: 100 mls/hr Insulin Aspart (Novolog Vial Sliding Scale -) 1 vial SQ ACHS [facility] PRN Reason: Protocol Last Admin: 07/03/17 13:25 Dose: Not Given Insulin Detemir (Levemir Vial) 15 units SQ AM [facility] Last Admin: 07/03/17 06:31 Dose: 15 unit Lidocaine (Lidoderm Patch -) 1 patch TP HS [facility] Last Admin: 07/02/17 21:54 Dose: 1 patch Lisinopril (Prinivil) 20 mg PO DAILY [facility] Last Admin: 07/03/17 10:33 Dose: 20 mg Metoclopramide HCl (Reglan Injection -) 10 mg IVPB Q8H PRN PRN Reason: NAUSEA AND/OR VOMITING Last Admin: 06/27/17 03:58 Dose: 10 mg Miscellaneous (Lidoderm Patch Removal) 1 each MC DAILY [facility] Last Admin: 07/03/17 10:33 Dose: 1 each Ondansetron HCl (Zofran Injection) 4 mg IVPB Q6H PRN PRN Reason: NAUSEA Last Admin: 06/27/17 15:25 Dose: 4 mg Oxycodone HCl (Roxicodone -) 10 mg PO Q6H PRN PRN Reason: PAIN Last Admin: 07/03/17 10:53 Dose: 10 mg Polyethylene Glycol (Miralax (For Daily Use) -) 17 gm PO DAILY [facility] Last Admin: 07/03/17 10:33 Dose: Not Given - Objective Vital Signs: Vital Signs Temperature 98.8 F 07/03/17 14:01 Pulse Rate 94 H 07/03/17 14:01 Respiratory Rate 18 07/03/17 14:01 Blood Pressure 135/74 07/03/17 14:01 O2 Sat by Pulse Oximetry (%) 98 07/02/17 21:00 Constitutional: Yes: Calm, Moderate Distress Cardiovascular: Yes: Regular Rate and Rhythm Respiratory: Yes: Regular, CTA Bilaterally Gastrointestinal: Yes: Normal Bowel Sounds, Soft Musculoskeletal: Yes: Other Extremities: Yes: Other Neurological: Yes: Alert, Oriented Psychiatric: Yes: Alert, Oriented Labs: CBC, BMP 07/03/17 06:00 07/03/17 06:00 INR, PTT INR 1.29 (0.82-1.09) H 06/29/17 06:00 Assessment/Plan Problem List - Problems (1) Sepsis Code(s): A41.9 - SEPSIS, UNSPECIFIED ORGANISM (2) Abscess and cellulitis Code(s): L03.90 - CELLULITIS, UNSPECIFIED L02.91 - CUTANEOUS ABSCESS, UNSPECIFIED (3) Cellulitis and abscess of left leg Code(s): L03.116 - CELLULITIS OF LEFT LOWER LIMB L02.416 - CUTANEOUS ABSCESS OF LEFT LOWER LIMB (4) Intractable vomiting with nausea Code(s): R11.2 - NAUSEA WITH VOMITING, UNSPECIFIED Qualifiers: Vomiting type: unspecified Qualified Code(s): R11.2 - Nausea with vomiting, unspecified; R11.2 - Nausea with vomiting, unspecified (5) Noncompliance with diabetes treatment Code(s): Z91.19 - PATIENT'S NONCOMPLIANCE W OTH MEDICAL TREATMENT AND REGIMEN (6) Diabetic ulcer of lower extremity Code(s): E11.622 - TYPE 2 DIABETES MELLITUS WITH OTHER SKIN ULCER L97.909 - NON-PRS CHRONIC ULC UNSP PRT OF UNSP LOW LEG W UNSP SEVERITY lactic acidosis leukocytosis uti wbc trending down plan continue abx for now plan to drain the wound rest as per primary will add vanco to coverage
[2017-07-03] MEDS ORDERED: LISINOPRIL 20 MG TABLET (FP) PO SCH (14:30)
[2017-07-03] MEDS: VANCOMYCIN 1,250 MG in DEXTROSE 5%-WATER - 250 ML IVPB SCH (15:57)
[2017-07-03] MEDS: LIDOCAINE 5% TOPICAL PATCH TP SCH (21:33)
[2017-07-04 00:09] LABS: A/G RATIO 0.4 (0.7-1.7); ALBUMIN 1.4 g/dL (2.9-4.4); ALPHA-1-GLOBULIN 0.4 g/dL (0.0-0.4); BETA GLOBULIN 0.8 g/dL (0.7-1.3); GAMMA GLOBULIN 1.5 g/dL (0.4-1.8); GLOBULIN, TOTAL 3.6 g/dL (2.2-3.9); M-SPIKE Not Observed g/dL (Not Observed)
[2017-07-04] MEDS: PIPERACILLIN/TAZOB 3.375 GM 50 ML IVPB SCH ×3 (01:18→17:04)
[2017-07-04] MEDS: ACETAMINOPHEN 325 MG TABLET (FP) PO PRN ×4 (01:18→20:00)
[2017-07-04] MEDS: oxyCODONE HCL 5 MG TABLET PO PRN ×4 (01:19→20:00)
[2017-07-04] MEDS: D5-1/2NS+20 MEQ KCL - 1,000 ML IV SCH ×2 (04:21→17:11)
[2017-07-04] MEDS: HEPARIN NA (PORCINE) 5,000 UNITS/ML 1ML VIAL SQ SCH ×3 (06:32→21:42)
[2017-07-04] MEDS: GABAPENTIN 100 MG CAPSULE (FP) PO SCH ×3 (06:32→21:43)
[2017-07-04] MEDS: INSULIN SLIDING SCALE (NOVOLOG) 1 VIAL SQ SCH ×4 (06:32→21:43)
[2017-07-04] MEDS: ONDANSETRON 4 MG/2 ML VIAL IVPB PRN (06:35)
[2017-07-04] MEDS: INSULIN DETEMIR 100 UNITS/ML MDV SQ SCH (06:35)
[2017-07-04 07:28] LABS: BASOPHIL 0.3 % (0-2.0); EOSINOPHIL 2.6 % (0-4.5); MCH 23.7 pg (25.7-33.7); MCHC 31.6 g/dl (32.0-35.9); MEAN CELL VOLUME 75.2 fl (80-96); MEAN PLT VOLUME 6.6 fl (7.5-11.1); NEUTROPHILS 81.3 % (42.8-82.8); PLATELET COUNT 690 K/MM3 (134-434); RDW 16.5 % (11.9-15.9); WHITE BLOOD COUNT 11.4 K/mm3 (4.0-10.0)
[2017-07-04 07:59] LABS: ALBUMIN 1.1 g/dl (3.4-5.0); ANION GAP 10 (8-16); CALCIUM 7.4 mg/dL (8.5-10.1); CO2 23 mmol/L (21-32); GLUCOSE,RANDOM 171 mg/dL (74-106)
[2017-07-04 08:02] LABS: ALK PHOS 407 U/L (45-117); BILIRUBIN,TOTAL 0.4 mg/dL (0.2-1.0); CREATININE 0.7 mg/dL (0.7-1.3); SGOT/AST 9 U/L (15-37); SGPT/ALT < 6 U/L (12-78); TOT PROT 5.9 g/dl (6.4-8.2)
--- NOTE | 2017-07-04 10:06 | PATH ---
Surgical Pathology Report Patient Name: MAYO HURLEY [facility]. Rec. #: [id number] /Age/Gender: 1970 (Age: 47) / M Account: [id number] Location: [facility] MED/SURG Taken: 06/29/2017 Received: 06/29/2017 Reported: 07/04/2017 Physicians: Walter Mcconnell ACNP Specimen(s) Received PERIPHERAL BLOOD Clinical History New onset thrombocytosis Final Diagnosis FLOW CYTOMETRY performed and interpreted at [place], [place] ([id number]) shows the following: INTERPRETATION: Granulocytosis with no discrete atypical flow cytometric findings. PHENOTYPE: Granulocytes are increased but show no detectable aberrant marker expression. Blasts are not increased. Lymphocytes are proportionally decreased and include NK cells and immunophenotypically normal CD4+ and CD8+ T cells in normal proportions. B cells are too few to assess clonality by light-chain staining. CYTOMORPHOLOGY: Smears from flow sample show no increase in myeloblast or atypical lymphocytes. BCR/ABL GENE REARRANGEMENT (IS) ANALYSIS performed and interpreted at [place], [place] ([id number]) shows the following: RESULTS: NEGATIVE BCR/ABL Major Breakpoints (b2a2 and b3a2): NOT DETECTED BCR/ABL Minor Breakpoint (e1a2): NOT DETECTED INTERPRETATION: No BCR-ABL translocation was detected in this sample. JAK2 [id number] MUTATION ANALYSIS BY PCR performed and interpreted at [place], [place] ([id number]) shows the following: RESULTS: Only the wild-type JAK2 sequence was detected. INTERPRETATION: Negative for JAK2 (V617F) mutation See Emerge report for additional details. Electronically Signed Cathy Maguire M.D. Addendum Reported: 07/05/2017 Addendum Diagnosis Calreticulin (CALR) performed and interpreted at [place], [place] ([id number]) shows the following: RESULTS: No mutation was detected in exon 9 of the calreticulin gene (CALR), by PCR fragment analysis. INTERPRETATION: CALR MUTATION (exon 9): Not Detected. See Emerge report for additional details ([id number]). Cathy Maguire M.D. Addendum Reported: 07/06/2017 Addendum Diagnosis JAK2 Exon 12 & 13 Mutation Analysis [facility] [place] ([id number]) shows the following: RESULTS: JAK2 Exon 12 Mutation: NOT DETECTED JAK2 Exon 13 Mutation: NOT DETECTED INTERPRETATION: Negative for JAK2 (Exon 12 & 13) Mutations. See Emerge report for additional details. Cathy Maguire M.D. Addendum Reported: 07/10/2017 Addendum Diagnosis MPL MUTATION ANALYSIS performed and [facility] [place] [facility] [place] ([id number]) shows the following: RESULTS: MPL Mutation: NOT DETECTED INTERPRETATION: Negative for MPL gene mutations. See Emerge report for additional details. Cathy Maguire M.D. Gross Description Received are 2 lavender top tubes of blood which are sent to [facility]. 06/29/2017 saudi06/29/2017
[2017-07-04] MEDS: FAMOTIDINE 20 MG/50 ML IVPB 50 ML IVPB SCH ×2 (10:35→21:43)
[2017-07-04] MEDS: POLYETHYLENE GLYCOL 3350 119 GM BTL PO SCH (10:36)
[2017-07-04] MEDS: LISINOPRIL 20 MG TABLET (FP) PO SCH (10:36)
[2017-07-04] MEDS: COLLAGENASE CLOSTRIDIUM HIST. 30 GRAMS TUBE TP SCH (10:38)
--- NOTE | 2017-07-04 10:52 | PN ---
Physical Exam: SUBJECTIVE: Patient seen and examined at the bedside. He verbalizes pain on left lateral leg wound. OBJECTIVE: Left lateral leg wound now draining jo purulent colored drainage, + foul odor Moderate amount of pus draining from wound Site cleansed irrigated with NS and sterile dressing applied Patient NPO for debridement with Dr. Jennings tomorrow heparin stopped after tonights dose Oxycodone as needed for pain Tmax 102F yesterday, blood cultures pending Vital Signs Period Temp Pulse Resp BP Sys/Monet Pulse Ox Last 24 Hr 98.7 F-102.2 F 94-106 18-20 123-146/74-80 98 GENERAL: The patient is awake, alert, and fully oriented, very anxious, cooperative HEAD: Normal with no signs of trauma. EYES: PERRL, extraocular movements intact, sclera anicteric, conjunctiva clear. No ptosis. ENT: Ears normal, nares patent, oropharynx clear without exudates, moist mucous membranes. NECK: Trachea midline, full range of motion, supple. LUNGS: Breath sounds equal, clear to auscultation bilaterally, no wheezes HEART: Regular rate and rhythm, S1, S2 without murmur, rub or gallop. ABDOMEN: Soft, nontender, nondistended, normoactive bowel sounds, no guarding, no rebound, no hepatosplenomegaly, no masses. EXTREMITIES: Left BKA, Left lateral leg wound now draining jo purulent colored drainage, + foul odor, open healed RUE graft NEUROLOGICAL: Normal speech, gait not observed. PSYCH: Normal mood, normal affect. Laboratory Results - last 24 hr 07/01/17 07/03/17 07/03/17 06:00 16:41 21:32 WBC RBC Hgb Hct MCV MCH MCHC RDW Plt Count MPV Neutrophils % Lymphocytes % Monocytes % Eosinophils % Basophils % Sodium Potassium Chloride Carbon Dioxide Anion Gap BUN Creatinine Creat Clearance w eGFR POC Glucometer 99 193 Random Glucose Calcium Iron 9 L TIBC 101 L Iron Saturation 9 L Total Bilirubin AST ALT Alkaline Phosphatase Serum Total Protein 5.0 L Total Protein Albumin 1.4 L Globulin 3.6 Albumin/Globulin Ratio 0.4 L Fwkrn-6-Xvqhsrecs 0.4 Mgsxc-3-Ggusjqhiu 1.0 Beta Globulins 0.8 Gamma Globulins 1.5 IgG 1170 IgA 650 H IgM 122 SHAQ M-Flakito Not observed SHAQ Comments Serum SHAQ Interpret 10/24/17 10/24/17 06:30 06:30 WBC 11.4 H RBC 3.60 L Hgb 8.6 L Hct 27.1 L MCV 75.2 L MCH 23.7 L MCHC 31.6 L RDW 16.5 H Plt Count 690 H MPV 6.6 L Neutrophils % 81.3 Lymphocytes % 7.5 L Monocytes % 8.3 Eosinophils % 2.6 Basophils % 0.3 Sodium 136 Potassium 4.3 Chloride 103 Carbon Dioxide 23 Anion Gap 10 BUN 4 L Creatinine 0.7 Creat Clearance w eGFR > 60 POC Glucometer Random Glucose 171 H D Calcium 7.4 L Iron TIBC Iron Saturation Total Bilirubin 0.4 D AST 9 L ALT < 6 L Alkaline Phosphatase 407 H Serum Total Protein Total Protein 5.9 L Albumin 1.1 L Globulin Albumin/Globulin Ratio Spcpi-8-Dcbmpguyv Onfcz-4-Xaewveckw Beta Globulins Gamma Globulins IgG IgA IgM SHAQ M-Flakito SHAQ Comments Serum SHAQ Interpret Active Medications Generic Name Dose Route Start Last Admin Trade Name Freq PRN Reason Stop Dose Admin Acetaminophen 650 mg 06/20/17 14:04 07/04/17 08:00 Tylenol - PO 650 mg Q4H PRN Administration FEVER OR PAIN Collagenase 1 applic 06/21/17 10:00 07/04/17 10:38 Santyl - TP 1 applic DAILY JESUS Administration Diphenhydramine HCl 25 mg 06/20/17 14:04 Benadryl Injection - IVPB Q8H PRN NAUSEA Docusate Sodium 100 mg 07/02/17 11:53 07/02/17 21:53 Colace - PO 100 mg Q8H PRN Administration CONSTIPATION Gabapentin 100 mg 06/20/17 16:45 07/04/17 06:32 Neurontin - PO 100 mg TID JESUS Administration Heparin Sodium (Porcine) 5,000 unit 06/23/17 22:00 07/04/17 06:32 Heparin - SQ 07/04/17 23:30 5,000 unit TID JESUS Administration Famotidine/Sodium Chloride 50 mls @ 100 mls/hr 06/20/17 22:00 07/04/17 10:35 Pepcid 20 Mg Premixed Ivpb - IVPB 100 mls/hr BID JESUS Administration Potassium Chloride/Dextrose/Sod Cl 1,000 mls @ 100 mls/hr 06/27/17 16:15 04:21 D5-1/2ns+20 Meq Kcl - IV 100 mls/hr ASDIR JESUS Administration Piperacillin/Tazobactam/Dextrose 50 mls @ 100 mls/hr 07/01/17 15:00 07/04/17 10 :35 Zosyn 3.375gm Ivpb (Premix) IVPB 100 mls/hr Q8H-IV JESUS Administration Protocol Vancomycin HCl 1,250 mg/ 250 mls @ 166.667 mls/hr 07/03/17 15:00 07/03/17 15:57 Dextrose IVPB 166.667 mls/hr DAILY@1500 JESUS Administration Protocol Insulin Aspart 1 vial 06/20/17 16:30 07/04/17 06:32 Novolog Vial Sliding Scale - SQ Not Given ACHS JESUS Protocol Insulin Detemir 15 units 06/21/17 07:00 07/04/17 06:35 Levemir Vial SQ 15 unit AM JESUS Administration Lidocaine 1 patch 06/20/17 22:00 07/03/17 21:33 Lidoderm Patch - TP 1 patch HS JESUS Administration Lisinopril 30 mg 07/04/17 10:00 07/04/17 10:36 Prinivil PO 30 mg DAILY JESUS Administration Metoclopramide HCl 10 mg 06/26/17 13:52 06/27/17 03:58 Reglan Injection - IVPB 10 mg Q8H PRN Administration NAUSEA AND/OR VOMITING Miscellaneous 1 each 06/21/17 10:00 07/03/17 10:33 Lidoderm Patch Removal MC 1 each DAILY JESUS Administration Ondansetron HCl 4 mg 06/20/17 14:04 07/04/17 06:35 Zofran Injection IVPB 4 mg Q6H PRN Administration NAUSEA Oxycodone HCl 10 mg 06/29/17 20:43 07/04/17 07:56 Roxicodone - PO 10 mg Q6H PRN Administration PAIN Polyethylene Glycol 17 gm 07/02/17 12:00 07/04/17 10:36 Miralax (For Daily Use) - PO 17 gm DAILY JESUS Administration ASSESSMENT/PLAN: Patient is a 47 year old male with a significant past medical history of diabetes mellitus, multiple soft tissue infections and left BKA. He comes to the ED on 06/17/2017 complaining of left leg pain for the past week. The pain is located behind left knee and radiates up the posterior thigh. This pain was associated with fever, chills, nausea, vomiting and body aches. He was seeing Dr. Jennings at the wound care clinic and was undergoing hyperbaric treatment. ID: Sepsis secondary to diabetic wound, acute/not resolved A/P: WBC began to trend down on 06/29/17 then trended back up, now with fevers of 102F, tachycardia Noted that his left leg wound wound appears to be draining jo purulent drainage with foul odor, surrounding skin tender to touch. Pus expressed from wound by Dr. Jennings on 07/04 For debridement in OR with Dr. Jennings on 07/05/2017, NPO at midnight, heparin stopped after tonights's dose Patient on Zosyn, Vanco added on 07/03/2017 by ID Endocrine: Hyperglycemia vs DKA, resolved A/P: Anion gap now closed On Levemir 15 units daily Becomes symptomatic when blood sugars go below 150, goal is to keep BS around 150-200s Cardiology: Hypertension, improving A/P: Lisinopril uptitrated to 30mg daily on 07/03 Monitor BP Renal: KENDRICK, resolved A/P: monitor daily labs F.E.N. Fluids: d5 / 20meq @ 100 Electrolytes: monitor electrolytes Nutrition: diabetic diet, NPO on 07/05/2017 for OR Prophylaxis: DVT: heparin BID GI: pepcid, reglan Disposition: Full code. Visit type - Emergency Visit Emergency Visit: Yes ED Registration Date: 06/17/17 Care time: The patient presented to the Emergency Department on the above date and was hospitalized for further evaluation of their emergent condition. - New Patient This patient is new to me today: No - Critical Care Critical Care patient: No - Discharge Referral Referred to [facility] Med P.C.: No
[2017-07-04] MEDS: LIDOCAINE PATCH REMOVAL MC SCH (10:53)
[2017-07-04] MEDS ORDERED: INSULIN (NOVOLOG) ASPART 100 UNITS/ML 10ML VIAL ONE ×2 (11:20→21:10)
--- NOTE | 2017-07-04 14:35 | PN ---
Progress Note (short form) - Note Progress Note: [facility] Pt for I&D of abscess alvin. NPO past midnight. Costa Jennings DO
[2017-07-04] MEDS: VANCOMYCIN 1,250 MG in DEXTROSE 5%-WATER - 250 ML IVPB SCH (14:58)
--- NOTE | 2017-07-04 15:31 | PN ---
Progress Note, Physician History of Present Illness: pus was again expressed this morning as per patient feels much better pain much less or tomorrow - Current Medication List Current Medications: Active Medications Acetaminophen (Tylenol -) 650 mg PO Q4H PRN PRN Reason: FEVER OR PAIN Last Admin: 07/04/17 12:30 Dose: 650 mg Collagenase (Santyl -) 1 applic TP DAILY [facility] Last Admin: 07/04/17 10:38 Dose: 1 applic Diphenhydramine HCl (Benadryl Injection -) 25 mg IVPB Q8H PRN PRN Reason: NAUSEA Docusate Sodium (Colace -) 100 mg PO Q8H PRN PRN Reason: CONSTIPATION Last Admin: 07/02/17 21:53 Dose: 100 mg Gabapentin (Neurontin -) 100 mg PO TID [facility] Last Admin: 07/04/17 14:58 Dose: 100 mg Heparin Sodium (Porcine) (Heparin -) 5,000 unit SQ TID [facility] Stop: 07/04/17 23:30 Last Admin: 07/04/17 14:58 Dose: 5,000 unit Famotidine/Sodium Chloride (Pepcid 20 Mg Premixed Ivpb -) 50 mls @ 100 mls/hr IVPB BID [facility] Last Admin: 07/04/17 10:35 Dose: 100 mls/hr Potassium Chloride/Dextrose/Sod Cl (D5-1/2ns+20 Meq Kcl -) 1,000 mls @ 100 mls/ hr IV ASDIR [facility] Last Admin: 07/04/17 04:21 Dose: 100 mls/hr Piperacillin/Tazobactam/Dextrose (Zosyn 3.375gm Ivpb (Premix)) 50 mls @ 100 mls /hr IVPB Q8H-IV JESUS PRN Reason: Protocol Last Admin: 07/04/17 10:35 Dose: 100 mls/hr Vancomycin HCl 1,250 mg/ (Dextrose) 250 mls @ 166.667 mls/hr IVPB DAILY@1500 JESUS PRN Reason: Protocol Last Admin: 07/04/17 14:58 Dose: 166.667 mls/hr Insulin Aspart (Novolog Vial Sliding Scale -) 1 vial SQ ACHS JESUS PRN Reason: Protocol Last Admin: 07/04/17 11:34 Dose: Not Given Insulin Detemir (Levemir Vial) 15 units SQ AM [facility] Last Admin: 07/04/17 06:35 Dose: 15 unit Lidocaine (Lidoderm Patch -) 1 patch TP HS [facility] Last Admin: 07/03/17 21:33 Dose: 1 patch Lisinopril (Prinivil) 30 mg PO DAILY [facility] Last Admin: 07/04/17 10:36 Dose: 30 mg Metoclopramide HCl (Reglan Injection -) 10 mg IVPB Q8H PRN PRN Reason: NAUSEA AND/OR VOMITING Last Admin: 06/27/17 03:58 Dose: 10 mg Miscellaneous (Lidoderm Patch Removal) 1 each MC DAILY [facility] Last Admin: 07/04/17 10:53 Dose: 1 each Ondansetron HCl (Zofran Injection) 4 mg IVPB Q6H PRN PRN Reason: NAUSEA Last Admin: 07/04/17 06:35 Dose: 4 mg Oxycodone HCl (Roxicodone -) 10 mg PO Q4H PRN PRN Reason: PAIN Last Admin: 07/04/17 12:29 Dose: 10 mg Polyethylene Glycol (Miralax (For Daily Use) -) 17 gm PO DAILY [facility] Last Admin: 07/04/17 10:36 Dose: 17 gm - Objective Vital Signs: Vital Signs Temperature 98.4 F 07/04/17 14:19 Pulse Rate 89 07/04/17 14:19 Respiratory Rate 20 07/04/17 14:19 Blood Pressure 132/82 07/04/17 14:19 O2 Sat by Pulse Oximetry (%) 98 07/04/17 09:00 Constitutional: Yes: No Distress, Calm Cardiovascular: Yes: Regular Rate and Rhythm Respiratory: Yes: Regular, CTA Bilaterally Gastrointestinal: Yes: Normal Bowel Sounds, Soft Musculoskeletal: Yes: Other Extremities: Yes: Other Wound/Incision: Yes: Dressing Dry and Intact, Draining Neurological: Yes: Alert, Oriented Psychiatric: Yes: Alert, Oriented Labs: CBC, BMP 07/04/17 06:30 07/04/17 06:30 INR, PTT INR 1.29 (0.82-1.09) H 06/29/17 06:00 Assessment/Plan Problem List - Problems (1) Sepsis Code(s): A41.9 - SEPSIS, UNSPECIFIED ORGANISM (2) Abscess and cellulitis Code(s): L03.90 - CELLULITIS, UNSPECIFIED L02.91 - CUTANEOUS ABSCESS, UNSPECIFIED (3) Cellulitis and abscess of left leg Code(s): L03.116 - CELLULITIS OF LEFT LOWER LIMB L02.416 - CUTANEOUS ABSCESS OF LEFT LOWER LIMB (4) Intractable vomiting with nausea Code(s): R11.2 - NAUSEA WITH VOMITING, UNSPECIFIED Qualifiers: Vomiting type: unspecified Qualified Code(s): R11.2 - Nausea with vomiting, unspecified; R11.2 - Nausea with vomiting, unspecified (5) Noncompliance with diabetes treatment Code(s): Z91.19 - PATIENT'S NONCOMPLIANCE W OTH MEDICAL TREATMENT AND REGIMEN (6) Diabetic ulcer of lower extremity Code(s): E11.622 - TYPE 2 DIABETES MELLITUS WITH OTHER SKIN ULCER L97.909 - NON-PRS CHRONIC ULC UNSP PRT OF UNSP LOW LEG W UNSP SEVERITY lactic acidosis leukocytosis uti wound infection plan continue abx plan to drain the wound rest as per primary patient feels much better
--- NOTE | 2017-07-04 15:57 | PN ---
Progress Note (short form) - Note Progress Note: Pt seen and examined. c/o pain continued Constitutional: Yes: Well Nourished, No Distress, Anxious HENT: Yes: Atraumatic, Normocephalic Neck: Yes: Trachea Midline Cardiovascular: Yes: Regular Rate and Rhythm Respiratory: Yes: Regular, CTA Bilaterally Gastrointestinal: Yes: Normal Bowel Sounds, Soft, Abdomen, Obese Extremities: Yes: Amputation ,left BKA Edema: No Last Vital Signs Temp Pulse Resp BP Pulse Ox 98.4 F 89 20 132/82 98 07/04/17 14:19 07/04/17 14:19 07/04/17 14:19 07/04/17 14:19 07/04/17 09:00 CBC, BMP 07/04/17 06:30 07/04/17 06:30 Current Medications Generic Name Dose Route Start Last Admin Trade Name Freq PRN Reason Stop Dose Admin Acetaminophen 650 mg 06/20/17 14:04 07/04/17 12:30 Tylenol - PO 650 mg Q4H PRN Administration FEVER OR PAIN Collagenase 1 applic 06/21/17 10:00 07/04/17 10:38 Santyl - TP 1 applic DAILY JESUS Administration Diphenhydramine HCl 25 mg 06/20/17 14:04 Benadryl Injection - IVPB Q8H PRN NAUSEA Docusate Sodium 100 mg 07/02/17 11:53 07/02/17 21:53 Colace - PO 100 mg Q8H PRN Administration CONSTIPATION Gabapentin 100 mg 06/20/17 16:45 07/04/17 14:58 Neurontin - PO 100 mg TID JESUS Administration Heparin Sodium (Porcine) 5,000 unit 06/23/17 22:00 07/04/17 14:58 Heparin - SQ 07/04/17 23:30 5,000 unit TID JESUS Administration Famotidine/Sodium Chloride 50 mls @ 100 mls/hr 06/20/17 22:00 07/04/17 10:35 Pepcid 20 Mg Premixed Ivpb - IVPB 100 mls/hr BID JESUS Administration Potassium Chloride/Dextrose/Sod Cl 1,000 mls @ 100 mls/hr 06/27/17 16:15 04:21 D5-1/2ns+20 Meq Kcl - IV 100 mls/hr ASDIR JESUS Administration Piperacillin/Tazobactam/Dextrose 50 mls @ 100 mls/hr 07/01/17 15:00 07/04/17 10 :35 Zosyn 3.375gm Ivpb (Premix) IVPB 100 mls/hr Q8H-IV JESUS Administration Protocol Vancomycin HCl 1,250 mg/ 250 mls @ 166.667 mls/hr 07/03/17 15:00 07/04/17 14:58 Dextrose IVPB 166.667 mls/hr DAILY@1500 JESUS Administration Protocol Insulin Aspart 1 vial 06/20/17 16:30 07/04/17 11:34 Novolog Vial Sliding Scale - SQ Not Given ACHS JESUS Protocol Insulin Detemir 15 units 06/21/17 07:00 07/04/17 06:35 Levemir Vial SQ 15 unit AM JESUS Administration Lidocaine 1 patch 06/20/17 22:00 07/03/17 21:33 Lidoderm Patch - TP 1 patch HS JESUS Administration Lisinopril 30 mg 07/04/17 10:00 07/04/17 10:36 Prinivil PO 30 mg DAILY JESUS Administration Metoclopramide HCl 10 mg 06/26/17 13:52 06/27/17 03:58 Reglan Injection - IVPB 10 mg Q8H PRN Administration NAUSEA AND/OR VOMITING Miscellaneous 1 each 06/21/17 10:00 07/04/17 10:53 Lidoderm Patch Removal MC 1 each DAILY JESUS Administration Ondansetron HCl 4 mg 06/20/17 14:04 07/04/17 06:35 Zofran Injection IVPB 4 mg Q6H PRN Administration NAUSEA Oxycodone HCl 10 mg 07/04/17 10:56 07/04/17 12:29 Roxicodone - PO 10 mg Q4H PRN Administration PAIN Polyethylene Glycol 17 gm 07/02/17 12:00 07/04/17 10:36 Miralax (For Daily Use) - PO 17 gm DAILY JESUS Administration Anemia w/u likely ACD with Some Iron def component. (sat low) replete Iron , PO. continue to monitor thrombocytosis likely reactive reflects ongoing infection no splenomegaly no dvt will follow
[2017-07-04] MEDS: LIDOCAINE 5% TOPICAL PATCH TP SCH (21:42)
[2017-07-05] MEDS: ACETAMINOPHEN 325 MG TABLET (FP) PO PRN ×3 (01:25→20:49)
[2017-07-05] MEDS: PIPERACILLIN/TAZOB 3.375 GM 50 ML IVPB SCH ×3 (01:25→17:00)
[2017-07-05] MEDS: oxyCODONE HCL 5 MG TABLET PO PRN ×4 (01:26→20:49)
[2017-07-05] MEDS ORDERED: oxyCODONE HCL 5 MG TABLET PO ONE (02:48)
[2017-07-05] MEDS ORDERED: INSULIN DETEMIR 100 UNITS/ML MDV SQ ONE (05:52)
[2017-07-05] MEDS: GABAPENTIN 100 MG CAPSULE (FP) PO SCH ×3 (06:04→22:21)
[2017-07-05] MEDS: INSULIN DETEMIR 100 UNITS/ML MDV SQ SCH (06:04)
[2017-07-05] MEDS: INSULIN SLIDING SCALE (NOVOLOG) 1 VIAL SQ SCH ×4 (06:05→22:25)
[2017-07-05] MEDS: D5-1/2NS+20 MEQ KCL - 1,000 ML IV SCH ×2 (06:08→20:48)
[2017-07-05 07:45] LABS: INR 1.09 (0.82-1.09); PROTHROMBIN TIME (PATIENT) 12.3 SEC (9.98-11.88)
[2017-07-05 07:46] LABS: BASOPHIL 0.5 % (0-2.0); EOSINOPHIL 2.4 % (0-4.5); MCH 23.9 pg (25.7-33.7); MCHC 32.3 g/dl (32.0-35.9); MEAN CELL VOLUME 73.9 fl (80-96); MEAN PLT VOLUME 6.6 fl (7.5-11.1); NEUTROPHILS 78.3 % (42.8-82.8); PLATELET COUNT 665 K/MM3 (134-434); RDW 16.2 % (11.9-15.9); WHITE BLOOD COUNT 10.3 K/mm3 (4.0-10.0)
[2017-07-05 08:04] LABS: ALK PHOS 351 U/L (45-117); ANION GAP 6 (8-16); BILIRUBIN,TOTAL 0.5 mg/dL (0.2-1.0); CALCIUM 7.4 mg/dL (8.5-10.1); CO2 24 mmol/L (21-32); CREATININE 0.9 mg/dL (0.7-1.3); GLUCOSE,RANDOM 196 mg/dL (74-106); SGOT/AST 7 U/L (15-37); SGPT/ALT < 6 U/L (12-78); TOT PROT 5.5 g/dl (6.4-8.2)
[2017-07-05] MEDS ORDERED: PROMETHAZINE HCL 25 MG/1 ML VIAL IVPUSH PRN ×2 (08:40→10:25)
[2017-07-05] MEDS ORDERED: ONDANSETRON 4 MG/2 ML VIAL IVPUSH PRN ×2 (08:40→10:25)
[2017-07-05] MEDS ORDERED: LACTATED RINGERS SOLUTION 1,000 ML IV SCH ×2 (08:45→10:25)
[2017-07-05] MEDS ORDERED: MIDAZOLAM HCL 2 MG/2 ML SINGLE DOSE VIAL ONE (08:46)
[2017-07-05] MEDS ORDERED: PROPOFOL 20 ML ONE (08:46)
[2017-07-05] MEDS ORDERED: PIPERACILLIN/TAZOBACTAM 3.375 GM VIAL IVPB ONE (08:59)
[2017-07-05] MEDS ORDERED: LIDOCAINE HCL 2% 100 MG/5 ML DISP.SYRIN ONE (09:05)
[2017-07-05 09:07] LABS: ALBUMIN 0.9 g/dl (3.4-5.0)
[2017-07-05] MEDS ORDERED: DEXAMETHASONE SOD PHOSPHATE 4 MG/1 ML VIAL ONE (09:15)
[2017-07-05] MEDS ORDERED: KETOROLAC TROMETHAMINE 30 MG/1 ML VIAL ONE (09:18)
[2017-07-05] MEDS ORDERED: FE POLYSAC/CYANOCOBAL/FA COMBO CAPSULE PO SCH (10:00)
--- NOTE | 2017-07-05 10:15 | PN ---
Progress Note (short form) - Note Progress Note: Vascular Surgery Left thigh I&D performed of loculated abscess. Cx taken. Packed with iodoform Change daily. Will need VNS to go home for dressing changes. Will need vac dressing when he goes home and will follow in wound care clinic. Will follow Costa Jennings DO
[2017-07-05] MEDS ORDERED: DOCUSATE SODIUM 100 MG CAPSULE (FP) PO PRN (10:25)
[2017-07-05] MEDS ORDERED: ONDANSETRON 4 MG/2 ML VIAL IVPB PRN (10:25)
[2017-07-05] MEDS ORDERED: METOCLOPRAMIDE HCL INJECTION 10 MG/2 ML VIAL IVPB PRN (10:25)
[2017-07-05] MEDS ORDERED: D5-1/2NS+20 MEQ KCL - 1,000 ML IV SCH (10:25)
[2017-07-05] MEDS: FAMOTIDINE 20 MG/50 ML IVPB 50 ML IVPB SCH (11:08)
[2017-07-05] MEDS: POLYETHYLENE GLYCOL 3350 119 GM BTL PO SCH (11:08)
[2017-07-05] MEDS: LISINOPRIL 20 MG TABLET (FP) PO SCH (11:08)
[2017-07-05] MEDS: LIDOCAINE PATCH REMOVAL MC SCH ×2 (11:08→22:25)
[2017-07-05] MEDS: COLLAGENASE CLOSTRIDIUM HIST. 30 GRAMS TUBE TP SCH (11:09)
--- NOTE | 2017-07-05 11:16 | OP ---
DATE OF OPERATION: 07/05/2017 PREOPERATIVE DIAGNOSIS: Left thigh abscess. POSTOPERATIVE DIAGNOSIS: Left thigh abscess. PROCEDURE: Incision and drainage of left thigh abscess with pulse irrigation. SURGEON: Costa Bonner DO ANESTHESIA: Fractional. BLOOD LOSS: 50 mL. INDICATIONS: The patient is a 47-year-old male that comes in with left eye cellulitis. He has been in the hospital for over 10 days. He had 2 CT scans done to show that there was no collection of abscess, but recently he had started developing fevers and drainage from his left BKA stump/thigh. It was thought that he would need drainage. The patient was considered for the procedure understanding all risks, benefits, and alternatives, and taken to the operating room. DESCRIPTION OF PROCEDURE: Once in the operating room, he was placed on the operating table in the supine manner. The left lower extremity was prepped and draped in a sterile surgical manner. The patient was then administered general anesthesia. We then went ahead and took a number 10 blade and made an 8-cm incision across his prior ulcer on the left lateral thigh and an 8-cm incision was performed. As soon as the incision was performed, there was lots of pus under pressure and all the pus came out. We took cultures of the pus. We then broke up the loculations using a finger sweep. We then went ahead and made sure that there were no more other pockets of pus. We went ahead and used pulse irrigation with bacitracin and irrigated the area under pulse irrigation copiously. At this point there was no bleeding. Bovie cautery was used to control hemostasis. We packed the wound with iodoform packing, 4 x 4's, ABD pads, and Kerlix was used, and the area was wrapped. The patient tolerated the procedure with no complications. The patient was transferred to the PACU in stable condition. COSTA BONNER DO [employer]/[id number]
[2017-07-05] MEDS: VANCOMYCIN 1,250 MG in DEXTROSE 5%-WATER - 250 ML IVPB SCH (14:08)
--- NOTE | 2017-07-05 15:42 | PN ---
Progress Note, Physician History of Present Illness: taken to the or wound cleaned lot of pus debridement done - Current Medication List Current Medications: Active Medications Acetaminophen (Tylenol -) 650 mg PO Q4H PRN PRN Reason: FEVER OR PAIN Last Admin: 07/05/17 13:47 Dose: 650 mg B12/Folic Ac/Intrin Fact/Iron/Vit C (Niferex-150 Forte -) 1 each PO DAILY JESUS Collagenase (Santyl -) 1 applic TP DAILY [facility] Diphenhydramine HCl (Benadryl Injection -) 25 mg IVPB Q8H PRN PRN Reason: NAUSEA Docusate Sodium (Colace -) 100 mg PO Q8H PRN PRN Reason: CONSTIPATION Fentanyl (Sublimaze Injection -) 50 mcg IVPUSH [id number] PRN PRN Reason: PAIN Stop: 07/08/17 08:41 Gabapentin (Neurontin -) 100 mg PO TID JESUS Last Admin: 07/05/17 13:49 Dose: 100 mg Lactated Ringer's (Lactated Ringers Solution) 1,000 mls @ 125 mls/hr IV ASDIR [facility] Last Admin: 07/05/17 12:06 Dose: Not Given Famotidine/Sodium Chloride (Pepcid 20 Mg Premixed Ivpb -) 50 mls @ 100 mls/hr IVPB BID JESUS Potassium Chloride/Dextrose/Sod Cl (D5-1/2ns+20 Meq Kcl -) 1,000 mls @ 100 mls/ hr IV ASDIR JESUS Last Admin: 07/05/17 13:56 Dose: 100 mls/hr Vancomycin HCl 1,250 mg/ (Dextrose) 250 mls @ 166.667 mls/hr IVPB DAILY@1500 JESUS PRN Reason: Protocol Last Admin: 07/05/17 14:08 Dose: 166.667 mls/hr Piperacillin/Tazobactam/Dextrose (Zosyn 3.375gm Ivpb (Premix)) 50 mls @ 100 mls /hr IVPB Q8H-IV JESUS PRN Reason: Protocol Insulin Aspart (Novolog Vial Sliding Scale -) 1 vial SQ ACHS JESUS PRN Reason: Protocol Last Admin: 07/05/17 12:04 Dose: Not Given Insulin Detemir (Levemir Vial) 15 units SQ AM JESUS Lidocaine (Lidoderm Patch -) 1 patch TP HS [facility] Lisinopril (Prinivil) 30 mg PO DAILY [facility] Metoclopramide HCl (Reglan Injection -) 10 mg IVPB Q8H PRN PRN Reason: NAUSEA AND/OR VOMITING Miscellaneous (Lidoderm Patch Removal) 1 each DAILY [facility] Miscellaneous (Lidoderm Patch Removal) 1 each DAILY@2200 [facility] Oxycodone HCl (Roxicodone -) 10 mg PO Q4H PRN PRN Reason: PAIN Last Admin: 07/05/17 13:48 Dose: 10 mg Polyethylene Glycol (Miralax (For Daily Use) -) 17 gm PO DAILY [facility] - Objective Vital Signs: Vital Signs Temperature 98.3 F 07/05/17 15:19 Pulse Rate 94 H 07/05/17 15:19 Respiratory Rate 20 07/05/17 15:19 Blood Pressure 145/83 07/05/17 15:19 O2 Sat by Pulse Oximetry (%) 98 07/05/17 11:30 Constitutional: Yes: No Distress, Calm Cardiovascular: Yes: Regular Rate and Rhythm Respiratory: Yes: Regular, CTA Bilaterally Gastrointestinal: Yes: Normal Bowel Sounds, Soft Musculoskeletal: Yes: Other Extremities: Yes: Other Wound/Incision: Yes: Dressing Dry and Intact Labs: CBC, BMP 07/05/17 06:00 07/05/17 06:00 INR, PTT INR 1.09 (0.82-1.09) 07/05/17 06:00 Assessment/Plan Problem List - Problems (1) Sepsis Code(s): A41.9 - SEPSIS, UNSPECIFIED ORGANISM (2) Abscess and cellulitis Code(s): L03.90 - CELLULITIS, UNSPECIFIED L02.91 - CUTANEOUS ABSCESS, UNSPECIFIED (3) Cellulitis and abscess of left leg Code(s): L03.116 - CELLULITIS OF LEFT LOWER LIMB L02.416 - CUTANEOUS ABSCESS OF LEFT LOWER LIMB (4) Intractable vomiting with nausea Code(s): R11.2 - NAUSEA WITH VOMITING, UNSPECIFIED Qualifiers: Vomiting type: unspecified Qualified Code(s): R11.2 - Nausea with vomiting, unspecified; R11.2 - Nausea with vomiting, unspecified (5) Noncompliance with diabetes treatment Code(s): Z91.19 - PATIENT'S NONCOMPLIANCE W OTH MEDICAL TREATMENT AND REGIMEN (6) Diabetic ulcer of lower extremity Code(s): E11.622 - TYPE 2 DIABETES MELLITUS WITH OTHER SKIN ULCER L97.909 - NON-PRS CHRONIC ULC UNSP PRT OF UNSP LOW LEG W UNSP SEVERITY lactic acidosis leukocytosis uti wound infection plan patient post op from i and d with debridement of the wound continue abx wound cx pending rest continue current mgmt
--- NOTE | 2017-07-05 17:41 | PN ---
Physical Exam: SUBJECTIVE: Patient seen and examined. PT stable after OR, he said with the pus the pain left. OBJECTIVE: Vital Signs Period Temp Pulse Resp BP Sys/Monet Pulse Ox Last 24 Hr 97.5 F-98.6 F 80-94 10-20 109-152/68-97 96-99 PE Neuro: alert, awake, cn 2-12intact Pulm: clear, regular no sob noted CV: s1 s2 rrr Abd: s nt nd + bs Ext: L BKA with dressing intact, no pain noted Laboratory Results - last 24 hr 07/04/17 07/05/17 07/05/17 21:42 06:00 06:00 WBC 10.3 H RBC 3.47 L Hgb 8.3 L Hct 25.6 L MCV 73.9 L MCH 23.9 L MCHC 32.3 RDW 16.2 H Plt Count 665 H MPV 6.6 L Neutrophils % 78.3 Lymphocytes % 10.7 D Monocytes % 8.1 Eosinophils % 2.4 Basophils % 0.5 PT with INR 12.30 H INR 1.09 Sodium Potassium Chloride Carbon Dioxide Anion Gap BUN Creatinine Creat Clearance w eGFR POC Glucometer 130 Random Glucose Calcium Total Bilirubin AST ALT Alkaline Phosphatase Total Protein Albumin 07/05/17 07/05/17 07/05/17 06:00 06:04 12:01 WBC RBC Hgb Hct MCV MCH MCHC RDW Plt Count MPV Neutrophils % Lymphocytes % Monocytes % Eosinophils % Basophils % PT with INR INR Sodium 136 Potassium 4.0 Chloride 106 Carbon Dioxide 24 Anion Gap 6 L BUN 5 L D Creatinine 0.9 D Creat Clearance w eGFR > 60 POC Glucometer 238 99 Random Glucose 196 H Calcium 7.4 L Total Bilirubin 0.5 D AST 7 L D ALT < 6 L Alkaline Phosphatase 351 H Total Protein 5.5 L Albumin 0.9 L Active Medications Generic Name Dose Route Start Last Admin Trade Name Freq PRN Reason Stop Dose Admin Acetaminophen 650 mg 07/05/17 10:25 07/05/17 13:47 Tylenol - PO 650 mg Q4H PRN Administration FEVER OR PAIN B12/Folic Ac/Intrin Fact/Iron/Vit C 1 each 07/06/17 10:00 Niferex-150 Forte - PO DAILY JESUS Collagenase 1 applic 07/06/17 10:00 Santyl - TP DAILY JESUS Diphenhydramine HCl 25 mg 07/05/17 10:25 Benadryl Injection - IVPB Q8H PRN NAUSEA Docusate Sodium 100 mg 07/05/17 10:25 Colace - PO Q8H PRN CONSTIPATION Fentanyl 50 mcg 07/05/17 10:25 Sublimaze Injection - IVPUSH 07/08/17 08:41 [id number] PRN PAIN Gabapentin 100 mg 07/05/17 14:00 07/05/17 13:49 Neurontin - PO 100 mg TID JESUS Administration Lactated Ringer's 1,000 mls @ 125 mls/hr 07/05/17 10:25 07/05/17 12:06 Lactated Ringers Solution IV Not Given ASDIR JESUS Famotidine/Sodium Chloride 50 mls @ 100 mls/hr 07/05/17 22:00 Pepcid 20 Mg Premixed Ivpb - IVPB BID JESUS Potassium Chloride/Dextrose/Sod Cl 1,000 mls @ 100 mls/hr 07/05/17 10:25 13:56 D5-1/2ns+20 Meq Kcl - IV 100 mls/hr ASDIR JESUS Administration Vancomycin HCl 1,250 mg/ 250 mls @ 166.667 mls/hr 07/05/17 15:00 07/05/17 14:08 Dextrose IVPB 166.667 mls/hr DAILY@1500 [facility] Administration Protocol Piperacillin/Tazobactam/Dextrose 50 mls @ 100 mls/hr 07/05/17 18:00 07/05/17 17 :00 Zosyn 3.375gm Ivpb (Premix) IVPB 100 mls/hr Q8H-IV JESUS Administration Protocol Insulin Aspart 1 vial 07/05/17 11:00 07/05/17 16:59 Novolog Vial Sliding Scale - SQ 3 units ACHS [facility] Administration Protocol Insulin Detemir 15 units 07/06/17 07:00 Levemir Vial SQ AM [facility] Lidocaine 1 patch 07/05/17 22:00 Lidoderm Patch - TP HS [facility] Lisinopril 30 mg 07/06/17 10:00 Prinivil PO DAILY [facility] Metoclopramide HCl 10 mg 07/05/17 10:25 Reglan Injection - IVPB Q8H PRN NAUSEA AND/OR VOMITING Miscellaneous 1 each 07/06/17 10:00 Lidoderm Patch Removal MC DAILY JESUS Miscellaneous 1 each 07/05/17 22:00 Lidoderm Patch Removal DAILY@2200 [facility] Oxycodone HCl 10 mg 07/05/17 10:25 07/05/17 13:48 Roxicodone - PO 10 mg Q4H PRN Administration PAIN Polyethylene Glycol 17 gm 07/06/17 10:00 Miralax (For Daily Use) - PO DAILY [facility] Assessment: 47 year old male with PMHx of DM, multiple soft tissue infections, hx of MRSA, s/p left BKA who presented to the ED with worsening posterior left leg pain x1 week. Plan: 1. Sepsis 2/2 diabetic wound - s/p debridement in OR today - Copoious amounts of puss drained - Will need xeroform packing vs wound vac placement as outpt, will d/w SW - Awaiting cx - Continue zosyn and vanco per ID 2. Left lower extremity pain - Improved, see above 3. DM II - Discussed at length importance of DM management moving forward with regular bgm monitoring and insulin injection. Pt states this is a huge commitment and previously got bored with injections. He is now saying he will make the commitment and knows how to inject - Levemir 15u sq AM - BGM, ISS, ACHS 4. F/E/N - Severe hypoalbuminemia 5. Prophylaxis - Heparin 5,000u sq tid - PT 6. Dispo: - Will need VNS and wound vac care Visit type - Emergency Visit Emergency Visit: Yes ED Registration Date: 06/17/17 Care time: The patient presented to the Emergency Department on the above date and was hospitalized for further evaluation of their emergent condition. - New Patient This patient is new to me today: No - Critical Care Critical Care patient: No
[2017-07-05] MEDS ORDERED: FAMOTIDINE 20 MG/50 ML IVPB 50 ML IVPB SCH (22:00)
[2017-07-05] MEDS: LIDOCAINE 5% TOPICAL PATCH TP SCH (22:20)
[2017-07-06] MEDS: PIPERACILLIN/TAZOB 3.375 GM 50 ML IVPB SCH ×3 (02:12→17:22)
[2017-07-06] MEDS: ACETAMINOPHEN 325 MG TABLET (FP) PO PRN ×4 (03:29→18:20)
[2017-07-06] MEDS: oxyCODONE HCL 5 MG TABLET PO PRN ×4 (03:29→18:20)
[2017-07-06] MEDS: GABAPENTIN 100 MG CAPSULE (FP) PO SCH ×3 (06:24→22:14)
[2017-07-06] MEDS: INSULIN DETEMIR 100 UNITS/ML MDV SQ SCH (06:25)
[2017-07-06] MEDS: INSULIN SLIDING SCALE (NOVOLOG) 1 VIAL SQ SCH ×4 (06:25→22:16)
[2017-07-06 07:36] LABS: MCH 23.2 pg (25.7-33.7); MCHC 31.1 g/dl (32.0-35.9); MEAN CELL VOLUME 74.7 fl (80-96); MEAN PLT VOLUME 6.7 fl (7.5-11.1); NEUTROPHILS 87.8 % (42.8-82.8); PLATELET COUNT 821 K/MM3 (134-434); RDW 15.8 % (11.9-15.9); WHITE BLOOD COUNT 12.6 K/mm3 (4.0-10.0)
[2017-07-06 07:37] LABS: BASOPHIL 0.3 % (0-2.0)
[2017-07-06 08:03] LABS: ANION GAP 12 (8-16); CALCIUM 7.5 mg/dL (8.5-10.1); CO2 20 mmol/L (21-32)
[2017-07-06 08:05] LABS: CREATININE 0.8 mg/dL (0.7-1.3)
[2017-07-06 09:03] LABS: GLUCOSE,RANDOM 309 mg/dL (74-106)
[2017-07-06] MEDS ORDERED: PT OWN MED DRAWER 7, Y5N ONE (09:08)
[2017-07-06] MEDS: RANITIDINE HCL 150 MG TABLET (FP) PO SCH (09:15)
[2017-07-06] MEDS: FE POLYSAC/CYANOCOBAL/FA COMBO CAPSULE PO SCH (09:15)
[2017-07-06] MEDS: LISINOPRIL 20 MG TABLET (FP) PO SCH (09:15)
[2017-07-06] MEDS: POLYETHYLENE GLYCOL 3350 119 GM BTL PO SCH (09:16)
[2017-07-06] MEDS: LIDOCAINE PATCH REMOVAL MC SCH ×2 (09:16→22:14)
[2017-07-06] MEDS: COLLAGENASE CLOSTRIDIUM HIST. 30 GRAMS TUBE TP SCH (09:18)
[2017-07-06] MEDS: D5-1/2NS+20 MEQ KCL - 1,000 ML IV SCH (09:23)
[2017-07-06] MEDS ORDERED: INSULIN (NOVOLOG) ASPART 100 UNITS/ML 10ML VIAL ONE ×2 (11:41→21:16)
--- NOTE | 2017-07-06 13:11 | PN ---
Progress Note (short form) - Note Progress Note: Anesthesia postop note 47 y/o M s/p GA for I&D left thigh POD#1, vss, aaox3, some pain No anesthesia complications.
[2017-07-06] MEDS: VANCOMYCIN 1,250 MG in DEXTROSE 5%-WATER - 250 ML IVPB SCH (14:15)
--- NOTE | 2017-07-06 15:16 | PN ---
Progress Note, Physician History of Present Illness: feeling well pain dressing present drainage noted - Current Medication List Current Medications: Active Medications Acetaminophen (Tylenol -) 650 mg PO Q4H PRN PRN Reason: FEVER OR PAIN Last Admin: 07/06/17 14:19 Dose: 650 mg B12/Folic Ac/Intrin Fact/Iron/Vit C (Niferex-150 Forte -) 1 each PO DAILY [facility] Last Admin: 07/06/17 09:15 Dose: Not Given Collagenase (Santyl -) 1 applic TP DAILY [facility] Last Admin: 07/06/17 09:18 Dose: Not Given Diphenhydramine HCl (Benadryl Injection -) 25 mg IVPB Q8H PRN PRN Reason: NAUSEA Docusate Sodium (Colace -) 100 mg PO Q8H PRN PRN Reason: CONSTIPATION Fentanyl (Sublimaze Injection -) 50 mcg IVPUSH [id number] PRN PRN Reason: PAIN Stop: 07/08/17 08:41 Gabapentin (Neurontin -) 100 mg PO TID [facility] Last Admin: 07/06/17 14:15 Dose: 100 mg Vancomycin HCl 1,250 mg/ (Dextrose) 250 mls @ 166.667 mls/hr IVPB DAILY@1500 JESUS PRN Reason: Protocol Last Admin: 07/06/17 14:15 Dose: 166.667 mls/hr Piperacillin/Tazobactam/Dextrose (Zosyn 3.375gm Ivpb (Premix)) 50 mls @ 100 mls /hr IVPB Q8H-IV JESUS PRN Reason: Protocol Last Admin: 07/06/17 09:14 Dose: 100 mls/hr Potassium Chloride/Dextrose/Sod Cl (D5-1/2ns+20 Meq Kcl -) 1,000 mls @ 60 mls/ hr IV ASDIR [facility] Last Admin: 07/06/17 09:23 Dose: 60 mls/hr Insulin Aspart (Novolog Vial Sliding Scale -) 1 vial SQ ACHS JESUS PRN Reason: Protocol Last Admin: 07/06/17 11:36 Dose: 3 units Insulin Detemir (Levemir Vial) 15 units SQ AM [facility] Last Admin: 07/06/17 06:25 Dose: 15 unit Lidocaine (Lidoderm Patch -) 1 patch TP HS [facility] Last Admin: 07/05/17 22:20 Dose: 1 patch Lisinopril (Prinivil) 30 mg PO DAILY [facility] Last Admin: 07/06/17 09:15 Dose: 30 mg Metoclopramide HCl (Reglan Injection -) 10 mg IVPB Q8H PRN PRN Reason: NAUSEA AND/OR VOMITING Miscellaneous (Lidoderm Patch Removal) 1 each MC DAILY [facility] Last Admin: 07/06/17 09:16 Dose: 1 each Miscellaneous (Lidoderm Patch Removal) 1 each DAILY@2200 [facility] Last Admin: 07/05/17 22:25 Dose: 1 each Oxycodone HCl (Roxicodone -) 10 mg PO Q4H PRN PRN Reason: PAIN Last Admin: 07/06/17 14:19 Dose: 10 mg Polyethylene Glycol (Miralax (For Daily Use) -) 17 gm PO DAILY [facility] Last Admin: 07/06/17 09:16 Dose: Not Given Ranitidine HCl (Zantac -) 150 mg PO DAILY [facility] Last Admin: 07/06/17 09:15 Dose: Not Given - Objective Vital Signs: Vital Signs Temperature 98.1 F 07/06/17 14:15 Pulse Rate 94 H 07/06/17 14:15 Respiratory Rate 20 07/06/17 14:15 Blood Pressure 138/83 07/06/17 14:15 O2 Sat by Pulse Oximetry (%) 100 07/06/17 09:20 Constitutional: Yes: No Distress, Calm Cardiovascular: Yes: Regular Rate and Rhythm Respiratory: Yes: Regular, CTA Bilaterally Gastrointestinal: Yes: Normal Bowel Sounds, Soft Musculoskeletal: Yes: Other Extremities: Yes: Other Wound/Incision: Yes: Dressing Dry and Intact, Draining Neurological: Yes: Alert, Oriented Psychiatric: Yes: Alert, Oriented Labs: CBC, BMP 07/06/17 06:00 07/06/17 06:00 INR, PTT INR 1.09 (0.82-1.09) 07/05/17 06:00 Assessment/Plan Problem List - Problems (1) Sepsis Code(s): A41.9 - SEPSIS, UNSPECIFIED ORGANISM (2) Abscess and cellulitis Code(s): L03.90 - CELLULITIS, UNSPECIFIED L02.91 - CUTANEOUS ABSCESS, UNSPECIFIED (3) Cellulitis and abscess of left leg Code(s): L03.116 - CELLULITIS OF LEFT LOWER LIMB L02.416 - CUTANEOUS ABSCESS OF LEFT LOWER LIMB (4) Intractable vomiting with nausea Code(s): R11.2 - NAUSEA WITH VOMITING, UNSPECIFIED Qualifiers: Vomiting type: unspecified Qualified Code(s): R11.2 - Nausea with vomiting, unspecified; R11.2 - Nausea with vomiting, unspecified (5) Noncompliance with diabetes treatment Code(s): Z91.19 - PATIENT'S NONCOMPLIANCE W OTH MEDICAL TREATMENT AND REGIMEN (6) Diabetic ulcer of lower extremity Code(s): E11.622 - TYPE 2 DIABETES MELLITUS WITH OTHER SKIN ULCER L97.909 - NON-PRS CHRONIC ULC UNSP PRT OF UNSP LOW LEG W UNSP SEVERITY lactic acidosis leukocytosis uti wound infection plan patient post op from i and d with debridement of the wound continue abx wound cx pending rest continue current mgmt rest as per primary
--- NOTE | 2017-07-06 15:26 | PN ---
Physical Exam: SUBJECTIVE: Patient seen and examined. He appears well today, says his pain is gone. He is willing to go home with wound care and VNS. OBJECTIVE: Vital Signs Period Temp Pulse Resp BP Sys/Monet Pulse Ox Last 24 Hr 97.7 F-98.7 F 84-104 18-20 91-145/64-99 98-100 PE Neuro: alert, awake, cn 2-12intact Pulm: CTAB CV: s1 s2 rrr Abd: s nt nd + bs Ext: L BKA with dressing, + drainage Laboratory Results - last 24 hr 07/06/17 07/06/17 07/06/17 06:00 06:00 06:20 WBC 12.6 H RBC 4.00 Hgb 9.3 L D Hct 29.9 L D MCV 74.7 L MCH 23.2 L MCHC 31.1 L RDW 15.8 Plt Count 821 H D MPV 6.7 L Neutrophils % 87.8 H Lymphocytes % 7.6 L D Monocytes % 4.3 Eosinophils % 0.0 D Basophils % 0.3 Sodium 133 L Potassium 4.4 Chloride 101 Carbon Dioxide 20 L Anion Gap 12 BUN 7 D Creatinine 0.8 POC Glucometer 290 Random Glucose 309 H* D Calcium 7.5 L Active Medications Generic Name Dose Route Start Last Admin Trade Name Adrianq PRN Reason Stop Dose Admin Acetaminophen 650 mg 07/05/17 10:25 07/06/17 14:19 Tylenol - PO 650 mg Q4H PRN Administration FEVER OR PAIN B12/Folic Ac/Intrin Fact/Iron/Vit C 1 each 07/06/17 10:00 07/06/17 09:15 Niferex-150 Forte - PO Not Given DAILY JESUS Collagenase 1 applic 07/06/17 10:00 07/06/17 09:18 Santyl - TP Not Given DAILY JESUS Diphenhydramine HCl 25 mg 07/05/17 10:25 Benadryl Injection - IVPB Q8H PRN NAUSEA Docusate Sodium 100 mg 07/05/17 10:25 Colace - PO Q8H PRN CONSTIPATION Fentanyl 50 mcg 07/05/17 10:25 Sublimaze Injection - IVPUSH 07/08/17 08:41 [id number] PRN PAIN Gabapentin 100 mg 07/05/17 14:00 10/26/17 14:15 Neurontin - PO 100 mg TID JESUS Administration Vancomycin HCl 1,250 mg/ 250 mls @ 166.667 mls/hr 07/05/17 15:00 07/06/17 14:15 Dextrose IVPB 166.667 mls/hr DAILY@1500 [facility] Administration Protocol Piperacillin/Tazobactam/Dextrose 50 mls @ 100 mls/hr 07/05/17 18:00 07/06/17 09 :14 Zosyn 3.375gm Ivpb (Premix) IVPB 100 mls/hr Q8H-IV JESUS Administration Protocol Potassium Chloride/Dextrose/Sod Cl 1,000 mls @ 60 mls/hr 07/05/17 17:37 09:23 D5-1/2ns+20 Meq Kcl - IV 60 mls/hr ASDIR JESUS Administration Insulin Aspart 1 vial 07/05/17 11:00 07/06/17 11:36 Novolog Vial Sliding Scale - SQ 3 units ACHS JESUS Administration Protocol Insulin Detemir 15 units 07/06/17 07:00 07/06/17 06:25 Levemir Vial SQ 15 unit AM [facility] Administration Lidocaine 1 patch 07/05/17 22:00 07/05/17 22:20 Lidoderm Patch - TP 1 patch HS JESUS Administration Lisinopril 30 mg 07/06/17 10:00 07/06/17 09:15 Prinivil PO 30 mg DAILY [facility]ESUS Administration Metoclopramide HCl 10 mg 07/05/17 10:25 Reglan Injection - IVPB Q8H PRN NAUSEA AND/OR VOMITING Miscellaneous 1 each 07/06/17 10:00 07/06/17 09:16 Lidoderm Patch Removal MC 1 each DAILY [facility]ESUS Administration Miscellaneous 1 each 07/05/17 22:00 07/05/17 22:25 Lidoderm Patch Removal MC 1 each DAILY@2200 [facility] Administration Oxycodone HCl 10 mg 07/05/17 10:25 07/06/17 14:19 Roxicodone - PO 10 mg Q4H PRN Administration PAIN Polyethylene Glycol 17 gm 07/06/17 10:00 07/06/17 09:16 Miralax (For Daily Use) - PO Not Given DAILY JESUS Ranitidine HCl 150 mg 07/06/17 10:00 07/06/17 09:15 Zantac - PO Not Given DAILY JESUS Microbiology 07/05/17 10:00 Leg - Left Lower Gram Stain - Final 07/05/17 10:00 Leg - Left Lower Wound Culture - Preliminary Yeast Like Organism Pending Organism Assessment: 47 year old male with PMHx of DM, multiple soft tissue infections, hx of MRSA, s/p left BKA who presented to the ED with worsening posterior left leg pain x1 week. Plan: 1. Sepsis 2/2 diabetic wound - s/p debridement 07/05 - Xeroform packing vs wound vac placement as outpt, decide tomorrow with Dr. Jennings - Awaiting final cx - Continue zosyn and vanco per ID - Stop IVF, pt is eating 2. Left lower extremity pain - Improved, see above 3. DM II - Discussed at length importance of DM management moving forward with regular bgm monitoring and insulin injection, he is aware - Levemir 15u sq AM - BGM, ISS, ACHS 4. DKA - Resolved 5. F/E/N: - Severe hypoalbuminemia 6. Prophylaxis - Heparin 5,000u sq tid - PT 7. Dispo: - Will need VNS and wound vac care Visit type - Emergency Visit Emergency Visit: Yes ED Registration Date: 06/17/17 Care time: The patient presented to the Emergency Department on the above date and was hospitalized for further evaluation of their emergent condition. - New Patient This patient is new to me today: No - Critical Care Critical Care patient: No
[2017-07-06] MEDS: ZINC OXIDE 20% TOPICAL OINTMENT 30 GM TUBE TP SCH ×2 (17:22→22:14)
[2017-07-06] MEDS: LIDOCAINE 5% TOPICAL PATCH TP SCH (22:13)
[2017-07-07] MEDS: PIPERACILLIN/TAZOB 3.375 GM 50 ML IVPB SCH ×3 (01:32→18:10)
[2017-07-07] MEDS: oxyCODONE HCL 5 MG TABLET PO PRN ×5 (02:07→22:00)
[2017-07-07] MEDS: ACETAMINOPHEN 325 MG TABLET (FP) PO PRN ×5 (02:07→21:59)
[2017-07-07] MEDS: GABAPENTIN 100 MG CAPSULE (FP) PO SCH ×3 (06:34→21:58)
[2017-07-07] MEDS: INSULIN DETEMIR 100 UNITS/ML MDV SQ SCH (06:34)
[2017-07-07] MEDS: INSULIN SLIDING SCALE (NOVOLOG) 1 VIAL SQ SCH ×4 (06:35→22:03)
[2017-07-07 08:31] LABS: CALCIUM 7.5 mg/dL (8.5-10.1)
[2017-07-07 08:59] LABS: CREATININE 0.9 mg/dL (0.7-1.3)
[2017-07-07] MEDS ORDERED: PT OWN MED DRAWER 7, Y5N ONE ×2 (10:27→12:58)
[2017-07-07] MEDS: RANITIDINE HCL 150 MG TABLET (FP) PO SCH ×2 (10:37→10:43)
[2017-07-07] MEDS: LISINOPRIL 20 MG TABLET (FP) PO SCH (10:37)
[2017-07-07] MEDS: FE POLYSAC/CYANOCOBAL/FA COMBO CAPSULE PO SCH (10:39)
[2017-07-07] MEDS: COLLAGENASE CLOSTRIDIUM HIST. 30 GRAMS TUBE TP SCH (10:39)
[2017-07-07] MEDS: POLYETHYLENE GLYCOL 3350 119 GM BTL PO SCH (10:39)
[2017-07-07 10:40] LABS: ANION GAP 8 (8-16); CO2 23 mmol/L (21-32); GLUCOSE,RANDOM 283 mg/dL (74-106)
[2017-07-07] MEDS: ZINC OXIDE 20% TOPICAL OINTMENT 30 GM TUBE TP SCH ×2 (10:42→21:59)
[2017-07-07] MEDS: LIDOCAINE PATCH REMOVAL MC SCH ×3 (10:43→22:04)
[2017-07-07] MEDS ORDERED: INSULIN (NOVOLOG) ASPART 100 UNITS/ML 10ML VIAL ONE (12:59)
--- NOTE | 2017-07-07 14:15 | PN ---
Progress Note, Physician History of Present Illness: stable no new issues - Current Medication List Current Medications: Active Medications Acetaminophen (Tylenol -) 650 mg PO Q4H PRN PRN Reason: FEVER OR PAIN Last Admin: 07/07/17 11:03 Dose: 650 mg B12/Folic Ac/Intrin Fact/Iron/Vit C (Niferex-150 Forte -) 1 each PO DAILY [facility] Last Admin: 07/07/17 10:39 Dose: Not Given Collagenase (Santyl -) 1 applic TP DAILY [facility] Last Admin: 07/07/17 10:39 Dose: Not Given Diphenhydramine HCl (Benadryl Injection -) 25 mg IVPB Q8H PRN PRN Reason: NAUSEA Docusate Sodium (Colace -) 100 mg PO Q8H PRN PRN Reason: CONSTIPATION Fentanyl (Sublimaze Injection -) 50 mcg IVPUSH [id number] PRN PRN Reason: PAIN Stop: 07/08/17 08:41 Gabapentin (Neurontin -) 100 mg PO TID [facility] Last Admin: 07/07/17 06:34 Dose: 100 mg Vancomycin HCl 1,250 mg/ (Dextrose) 250 mls @ 166.667 mls/hr IVPB DAILY@1500 JESUS PRN Reason: Protocol Last Admin: 07/06/17 14:15 Dose: 166.667 mls/hr Piperacillin/Tazobactam/Dextrose (Zosyn 3.375gm Ivpb (Premix)) 50 mls @ 100 mls /hr IVPB Q8H-IV JESUS PRN Reason: Protocol Last Admin: 07/07/17 10:39 Dose: 100 mls/hr Insulin Aspart (Novolog Vial Sliding Scale -) 1 vial SQ ACHS [facility]ESUS PRN Reason: Protocol Last Admin: 07/07/17 13:00 Dose: 2 units Insulin Detemir (Levemir Vial) 15 units SQ AM [facility] Last Admin: 07/07/17 06:34 Dose: 15 unit Lidocaine (Lidoderm Patch -) 1 patch TP HS [facility] Last Admin: 07/06/17 22:13 Dose: 1 patch Lisinopril (Prinivil) 30 mg PO DAILY [facility] Last Admin: 07/07/17 10:37 Dose: 30 mg Metoclopramide HCl (Reglan Injection -) 10 mg IVPB Q8H PRN PRN Reason: NAUSEA AND/OR VOMITING Miscellaneous (Lidoderm Patch Removal) 1 each MC DAILY [facility] Last Admin: 07/07/17 10:45 Dose: 1 each Miscellaneous (Lidoderm Patch Removal) 1 each MC DAILY@2200 [facility] Last Admin: 07/06/17 22:14 Dose: 1 each Multi-Ingredient Ointment (Zinc Oxide) 1 applic TP BID [facility] Last Admin: 07/07/17 10:42 Dose: Not Given Oxycodone HCl (Roxicodone -) 10 mg PO Q4H PRN PRN Reason: PAIN Last Admin: 07/07/17 10:48 Dose: 10 mg Polyethylene Glycol (Miralax (For Daily Use) -) 17 gm PO DAILY [facility] Last Admin: 07/07/17 10:39 Dose: Not Given Ranitidine HCl (Zantac -) 150 mg PO DAILY [facility] Last Admin: 07/07/17 10:43 Dose: Not Given - Objective Vital Signs: Vital Signs Temperature 98.4 F 07/07/17 14:02 Pulse Rate 102 H 07/07/17 14:02 Respiratory Rate 20 07/07/17 14:02 Blood Pressure 100/69 07/07/17 14:02 O2 Sat by Pulse Oximetry (%) 100 07/06/17 21:00 Constitutional: Yes: Calm, Mild Distress Cardiovascular: Yes: Regular Rate and Rhythm Respiratory: Yes: Regular, CTA Bilaterally Gastrointestinal: Yes: Normal Bowel Sounds, Soft Musculoskeletal: Yes: Other Extremities: Yes: Other Wound/Incision: Yes: Dressing Dry and Intact Neurological: Yes: Alert, Oriented Psychiatric: Yes: Alert, Oriented Labs: CBC, BMP 07/06/17 06:00 07/07/17 06:30 INR, PTT INR 1.09 (0.82-1.09) 07/05/17 06:00 Assessment/Plan Problem List - Problems (1) Sepsis Code(s): A41.9 - SEPSIS, UNSPECIFIED ORGANISM (2) Abscess and cellulitis Code(s): L03.90 - CELLULITIS, UNSPECIFIED L02.91 - CUTANEOUS ABSCESS, UNSPECIFIED (3) Cellulitis and abscess of left leg Code(s): L03.116 - CELLULITIS OF LEFT LOWER LIMB L02.416 - CUTANEOUS ABSCESS OF LEFT LOWER LIMB (4) Intractable vomiting with nausea Code(s): R11.2 - NAUSEA WITH VOMITING, UNSPECIFIED Qualifiers: Vomiting type: unspecified Qualified Code(s): R11.2 - Nausea with vomiting, unspecified; R11.2 - Nausea with vomiting, unspecified (5) Noncompliance with diabetes treatment Code(s): Z91.19 - PATIENT'S NONCOMPLIANCE W OTH MEDICAL TREATMENT AND REGIMEN (6) Diabetic ulcer of lower extremity Code(s): E11.622 - TYPE 2 DIABETES MELLITUS WITH OTHER SKIN ULCER L97.909 - NON-PRS CHRONIC ULC UNSP PRT OF UNSP LOW LEG W UNSP SEVERITY lactic acidosis leukocytosis uti wound infection plan wound cx result noted stopped vanco wbc has increased patient now on zosyn if wbc does not increase then we will switch to oral abx wound care
--- NOTE | 2017-07-07 14:32 | PN ---
Physical Exam: SUBJECTIVE: Patient seen and examined. He still has pain when he tries to sit and place pressure at the edge of bed to his posterior thigh OBJECTIVE: Vital Signs Period Temp Pulse Resp BP Sys/Monet Pulse Ox Last 24 Hr 97.7 F-98.4 F 92-106 18-20 100-163/69-98 100 PE Neuro: alert, awake, cn 2-12intact Pulm: CTAB CV: s1 s2 rrr Abd: s nt nd + bs Ext: L BKA with dressing intact, tenderness to posterior quad Laboratory Results - last 24 hr 07/06/17 07/06/17 07/07/17 17:18 22:12 06:30 Sodium 139 Potassium 4.3 Chloride 107 Carbon Dioxide 23 Anion Gap 8 BUN 9 D Creatinine 0.9 POC Glucometer 241 292 Random Glucose 283 H Calcium 7.5 L 07/07/17 07/07/17 06:33 12:50 Sodium Potassium Chloride Carbon Dioxide Anion Gap BUN Creatinine POC Glucometer 294 235 Random Glucose Calcium Active Medications Generic Name Dose Route Start Last Admin Trade Name Freq PRN Reason Stop Dose Admin Acetaminophen 650 mg 07/05/17 10:25 07/07/17 11:03 Tylenol - PO 650 mg Q4H PRN Administration FEVER OR PAIN B12/Folic Ac/Intrin Fact/Iron/Vit C 1 each 07/06/17 10:00 07/07/17 10:39 Niferex-150 Forte - PO Not Given DAILY [facility] Collagenase 1 applic 07/06/17 10:00 07/07/17 10:39 Santyl - TP Not Given DAILY [facility] Diphenhydramine HCl 25 mg 07/05/17 10:25 Benadryl Injection - IVPB Q8H PRN NAUSEA Docusate Sodium 100 mg 07/05/17 10:25 Colace - PO Q8H PRN CONSTIPATION Fentanyl 50 mcg 07/05/17 10:25 Sublimaze Injection - IVPUSH 07/08/17 08:41 [id number] PRN PAIN Gabapentin 100 mg 07/05/17 14:00 07/07/17 06:34 Neurontin - PO 100 mg TID [facility]ESUS Administration Piperacillin/Tazobactam/Dextrose 50 mls @ 100 mls/hr 07/05/17 18:00 07/07/17 10 :39 Zosyn 3.375gm Ivpb (Premix) IVPB 100 mls/hr Q8H-IV [facility]US Administration Protocol Insulin Aspart 1 vial 07/05/17 11:00 07/07/17 13:00 Novolog Vial Sliding Scale - SQ 2 units ACHS [facility] Administration Protocol Insulin Detemir 15 units 07/06/17 07:00 07/07/17 06:34 Levemir Vial SQ 15 unit AM [facility] Administration Lidocaine 1 patch 07/05/17 22:00 07/06/17 22:13 Lidoderm Patch - TP 1 patch HS [facility] Administration Lisinopril 30 mg 07/06/17 10:00 07/07/17 10:37 Prinivil PO 30 mg DAILY [facility] Administration Metoclopramide HCl 10 mg 07/05/17 10:25 Reglan Injection - IVPB Q8H PRN NAUSEA AND/OR VOMITING Miscellaneous 1 each 07/06/17 10:00 07/07/17 10:45 Lidoderm Patch Removal MC 1 each DAILY [facility] Administration Miscellaneous 1 each 07/05/17 22:00 07/06/17 22:14 Lidoderm Patch Removal MC 1 each DAILY@2200 [facility] Administration Multi-Ingredient Ointment 1 applic 07/06/17 15:45 07/07/17 10:42 Zinc Oxide TP Not Given BID [facility] Oxycodone HCl 10 mg 07/05/17 10:25 07/07/17 10:48 Roxicodone - PO 10 mg Q4H PRN Administration PAIN Polyethylene Glycol 17 gm 07/06/17 10:00 07/07/17 10:39 Miralax (For Daily Use) - PO Not Given DAILY [facility] Ranitidine HCl 150 mg 07/06/17 10:00 07/07/17 10:43 Zantac - PO Not Given DAILY [facility] Microbiology 07/05/17 10:00 Gram Stain - Final Leg - Left Lower Wound Culture - Final Yeast Like Organism 07/02/17 19:20 Blood Culture - Preliminary Blood - Peripheral Venous NO GROWTH OBTAINED AFTER 96 HOURS, INCUBATION TO CONTINUE FOR 1 DAYS. 07/02/17 19:10 Blood Culture - Preliminary Blood - Peripheral Venous NO GROWTH OBTAINED AFTER 96 HOURS, INCUBATION TO CONTINUE FOR 1 DAYS. Assessment: 47 year old male with PMHx of DM, multiple soft tissue infections, hx of MRSA, s/p left BKA who presented to the ED with worsening posterior left leg pain x1 week. Plan: 1. Sepsis 2/2 diabetic wound - s/p debridement 07/05 - Vascular to decide re wound vac placement, will see pt today, spoke with Dr. howe - CX no growth - Stop vanco - Continue zosyn 2. Left lower extremity pain - Improved, however will need PT, as unable to extend L keen completely 3. DM II - Levemir 15u sq AM - BGM, ISS, ACHS 4. DKA - Resolved 5. F/E/N: - Severe hypoalbuminemia 6. Prophylaxis - Heparin 5,000u sq tid - PT 7. Dispo: - Plan for [facility] Visit type - Emergency Visit Emergency Visit: Yes ED Registration Date: 06/17/17 Care time: The patient presented to the Emergency Department on the above date and was hospitalized for further evaluation of their emergent condition. - New Patient This patient is new to me today: No - Critical Care Critical Care patient: No
--- NOTE | 2017-07-07 16:37 | PN ---
Progress Note (short form) - Note Progress Note: Vascular Surgery Pt seen and examined. left thigh dressing changed. Packing removed. Santyl placed. No pus could be expressed. Will order VAC for pt. [place] howe DO
[2017-07-07] MEDS: LIDOCAINE 5% TOPICAL PATCH TP SCH (22:06)
[2017-07-08] MEDS: PIPERACILLIN/TAZOB 3.375 GM 50 ML IVPB SCH ×3 (01:09→17:08)
[2017-07-08] MEDS: oxyCODONE HCL 5 MG TABLET PO PRN ×6 (01:43→22:12)
[2017-07-08] MEDS: ACETAMINOPHEN 325 MG TABLET (FP) PO PRN ×6 (01:44→22:11)
[2017-07-08] MEDS ORDERED: INSULIN (NOVOLOG) ASPART 100 UNITS/ML 10ML VIAL ONE ×2 (05:08→11:21)
[2017-07-08] MEDS: GABAPENTIN 100 MG CAPSULE (FP) PO SCH ×3 (05:38→22:13)
[2017-07-08] MEDS: INSULIN DETEMIR 100 UNITS/ML MDV SQ SCH (06:40)
[2017-07-08] MEDS: INSULIN SLIDING SCALE (NOVOLOG) 1 VIAL SQ SCH ×4 (06:41→22:13)
[2017-07-08 07:43] LABS: MCH 24.1 pg (25.7-33.7); MEAN CELL VOLUME 75.3 fl (80-96); MEAN PLT VOLUME 6.5 fl (7.5-11.1); PLATELET COUNT 714 K/MM3 (134-434); RDW 16.1 % (11.9-15.9); WHITE BLOOD COUNT 11.7 K/mm3 (4.0-10.0)
[2017-07-08] MEDS ORDERED: PT OWN MED DRAWER 7, Y5N ONE (09:41)
[2017-07-08] MEDS: FE POLYSAC/CYANOCOBAL/FA COMBO CAPSULE PO SCH (09:43)
[2017-07-08] MEDS: LISINOPRIL 20 MG TABLET (FP) PO SCH (09:43)
[2017-07-08] MEDS: RANITIDINE HCL 150 MG TABLET (FP) PO SCH (09:43)
[2017-07-08] MEDS: LIDOCAINE PATCH REMOVAL MC SCH (09:44)
[2017-07-08] MEDS: POLYETHYLENE GLYCOL 3350 119 GM BTL PO SCH (09:44)
[2017-07-08] MEDS: COLLAGENASE CLOSTRIDIUM HIST. 30 GRAMS TUBE TP SCH (09:53)
[2017-07-08] MEDS: ZINC OXIDE 20% TOPICAL OINTMENT 30 GM TUBE TP SCH ×2 (09:53→22:13)
--- NOTE | 2017-07-08 12:57 | PN ---
Physical Exam: SUBJECTIVE: Patient seen and examined. He is still having difficulty extending L leg fully. Pain tolerable with meds OBJECTIVE: Vital Signs Period Temp Pulse Resp BP Sys/Monet Pulse Ox Last 24 Hr 97.9 F-98.6 F 99-102 18-20 100-145/69-95 99 PE Neuro: alert, awake, cn 2-12intact Pulm: CTAB CV: s1 s2 rrr Abd: s nt nd + bs Ext: L BKA with drainage, stable with eloise bandage, tenderness to posterior quad Laboratory Results - last 24 hr 07/08/17 07/08/17 07/08/17 05:37 06:00 11:17 WBC 11.7 H RBC 3.20 L Hgb 7.7 L D Hct 24.1 L D MCV 75.3 L MCH 24.1 L MCHC 32.0 RDW 16.1 H Plt Count 714 H MPV 6.5 L POC Glucometer 229 210 Active Medications Generic Name Dose Route Start Last Admin Trade Name Freq PRN Reason Stop Dose Admin Acetaminophen 650 mg 07/05/17 10:25 07/08/17 09:44 Tylenol - PO 650 mg Q4H PRN Administration FEVER OR PAIN B12/Folic Ac/Intrin Fact/Iron/Vit C 1 each 07/06/17 10:00 07/08/17 09:43 Niferex-150 Forte - PO 1 each DAILY JESUS Administration Collagenase 1 applic 07/06/17 10:00 07/08/17 09:53 Santyl - TP Not Given DAILY JESUS Diphenhydramine HCl 25 mg 07/05/17 10:25 Benadryl Injection - IVPB Q8H PRN NAUSEA Docusate Sodium 100 mg 07/05/17 10:25 Colace - PO Q8H PRN CONSTIPATION Gabapentin 100 mg 07/05/17 14:00 07/08/17 05:38 Neurontin - PO 100 mg TID JESUS Administration Piperacillin/Tazobactam/Dextrose 50 mls @ 100 mls/hr 07/05/17 18:00 07/08/17 10 :26 Zosyn 3.375gm Ivpb (Premix) IVPB 100 mls/hr Q8H-IV JESUS Administration Protocol Insulin Aspart 1 vial 07/05/17 11:00 07/08/17 11:22 Novolog Vial Sliding Scale - SQ 2 units ACHS JESUS Administration Protocol Insulin Detemir 15 units 07/06/17 07:00 07/08/17 06:40 Levemir Vial SQ 15 unit AM JESUS Administration Lidocaine 1 patch 07/05/17 22:00 07/07/17 22:06 Lidoderm Patch - TP 1 patch HS JESUS Administration Lisinopril 30 mg 07/06/17 10:00 07/08/17 09:43 Prinivil PO 30 mg DAILY JESUS Administration Metoclopramide HCl 10 mg 07/05/17 10:25 Reglan Injection - IVPB Q8H PRN NAUSEA AND/OR VOMITING Miscellaneous 1 each 07/06/17 10:00 07/08/17 09:44 Lidoderm Patch Removal MC 1 each DAILY JESUS Administration Multi-Ingredient Ointment 1 applic 07/06/17 15:45 07/08/17 09:53 Zinc Oxide TP Not Given BID JESUS Oxycodone HCl 10 mg 07/05/17 10:25 07/08/17 09:45 Roxicodone - PO 10 mg Q4H PRN Administration PAIN Polyethylene Glycol 17 gm 07/06/17 10:00 07/08/17 09:44 Miralax (For Daily Use) - PO Not Given DAILY JESUS Ranitidine HCl 150 mg 07/06/17 10:00 07/08/17 09:43 Zantac - PO 150 mg DAILY JESUS Administration Assessment: 47 year old male with PMHx of DM, multiple soft tissue infections, hx of MRSA, s/p left BKA who presented to the ED with worsening posterior left leg pain x1 week. Plan: 1. Sepsis 2/2 diabetic wound - s/p debridement 07/05 - Wound vac order, vascular to place - [facility] to [facility] for their facility, SW aware - Vanco stopped 07/07 - Continue zosyn, transition to PO abx per ID 2. Left lower extremity pain - Improved, however will need PT, as unable to extend L keen completely 3. DM II - Levemir 15u sq AM - BGM, ISS, ACHS 4. DKA - Resolved 5. F/E/N: - Severe hypoalbuminemia 6. Acute blood loss anemia - likely of chronic disease - Pt asymptomatic - Will monitor hgb and transfuse as needed 7. Thrombocytosis - Likely reactive, mildly down trending - Monitor 8. Prophylaxis - Heparin 5,000u sq tid - PT Dispo: - Plan for Serge Gomez [place] Visit type - Emergency Visit Emergency Visit: Yes ED Registration Date: 06/17/17 Care time: The patient presented to the Emergency Department on the above date and was hospitalized for further evaluation of their emergent condition. - New Patient This patient is new to me today: No - Critical Care Critical Care patient: No
--- NOTE | 2017-07-08 15:25 | PN ---
Progress Note, Physician History of Present Illness: Pt seen and examined. Chart reviewed, lab results noted. Currently patient is alert, afebrile but c/o pain in Left leg not controlled with current pain medication. Otherwise no other specific complaints. - Current Medication List Current Medications: Active Medications Acetaminophen (Tylenol -) 650 mg PO Q4H PRN PRN Reason: FEVER OR PAIN Last Admin: 07/08/17 13:40 Dose: 650 mg B12/Folic Ac/Intrin Fact/Iron/Vit C (Niferex-150 Forte -) 1 each PO DAILY [facility] Last Admin: 07/08/17 09:43 Dose: 1 each Collagenase (Santyl -) 1 applic TP DAILY [facility] Last Admin: 07/08/17 09:53 Dose: Not Given Diphenhydramine HCl (Benadryl Injection -) 25 mg IVPB Q8H PRN PRN Reason: NAUSEA Docusate Sodium (Colace -) 100 mg PO Q8H PRN PRN Reason: CONSTIPATION Gabapentin (Neurontin -) 100 mg PO TID [facility] Last Admin: 07/08/17 13:15 Dose: 100 mg Piperacillin/Tazobactam/Dextrose (Zosyn 3.375gm Ivpb (Premix)) 50 mls @ 100 mls /hr IVPB Q8H-IV JESUS PRN Reason: Protocol Last Admin: 07/08/17 10:26 Dose: 100 mls/hr Insulin Aspart (Novolog Vial Sliding Scale -) 1 vial SQ ACHS JESUS PRN Reason: Protocol Last Admin: 07/08/17 11:22 Dose: 2 units Insulin Detemir (Levemir Vial) 15 units SQ AM [facility] Last Admin: 07/08/17 06:40 Dose: 15 unit Lidocaine (Lidoderm Patch -) 1 patch TP HS [facility] Last Admin: 07/07/17 22:06 Dose: 1 patch Lisinopril (Prinivil) 30 mg PO DAILY [facility] Last Admin: 07/08/17 09:43 Dose: 30 mg Metoclopramide HCl (Reglan Injection -) 10 mg IVPB Q8H PRN PRN Reason: NAUSEA AND/OR VOMITING Miscellaneous (Lidoderm Patch Removal) 1 each MC DAILY [facility] Last Admin: 07/08/17 09:44 Dose: 1 each Multi-Ingredient Ointment (Zinc Oxide) 1 applic TP BID [facility] Last Admin: 07/08/17 09:53 Dose: Not Given Oxycodone HCl (Roxicodone -) 10 mg PO Q4H PRN PRN Reason: PAIN Last Admin: 07/08/17 13:39 Dose: 10 mg Polyethylene Glycol (Miralax (For Daily Use) -) 17 gm PO DAILY [facility] Last Admin: 07/08/17 09:44 Dose: Not Given Ranitidine HCl (Zantac -) 150 mg PO DAILY [facility] Last Admin: 07/08/17 09:43 Dose: 150 mg - Objective Vital Signs: Vital Signs Temperature 101.8 F H 07/08/17 15:12 Pulse Rate 115 H 07/08/17 15:12 Respiratory Rate 18 07/08/17 15:12 Blood Pressure 148/88 07/08/17 15:12 O2 Sat by Pulse Oximetry (%) 99 07/08/17 09:00 Constitutional: Yes: No Distress Cardiovascular: Yes: Regular Rate and Rhythm Respiratory: Yes: CTA Bilaterally Gastrointestinal: Yes: Normal Bowel Sounds, Soft Genitourinary: Yes: WNL Extremities: Yes: Other (Lt BKA) Wound/Incision: Yes: Other (Left lateral leg wound vac in place, +Lt leg tenderness) Neurological: Yes: Alert, Oriented Labs: CBC, BMP 07/08/17 06:00 07/07/17 06:30 INR, PTT INR 1.09 (0.82-1.09) 07/05/17 06:00 Microbiology 07/02/17 19:20 Blood - Peripheral Venous Blood Culture - Final NO GROWTH AFTER 5 DAYS INCUBATION 07/02/17 19:10 Blood - Peripheral Venous Blood Culture - Final NO GROWTH AFTER 5 DAYS INCUBATION 07/05/17 10:00 Leg - Left Lower Gram Stain - Final 07/05/17 10:00 Leg - Left Lower Wound Culture - Final Yeast Like Organism 07/02/17 20:10 Urine - Urine Clean Catch Urine Culture - Final NO GROWTH OBTAINED 06/24/17 16:00 Blood - Peripheral Venous Blood Culture - Final NO GROWTH AFTER 5 DAYS INCUBATION 06/24/17 16:00 Blood - Peripheral Venous Blood Culture - Final NO GROWTH AFTER 5 DAYS INCUBATION 06/23/17 22:00 Nares - Mrsa Screen - Left MRSA Screen - Final NO MRSA ISOLATED 06/23/17 22:00 Nares - Right Nares MRSA Screen - Final NO MRSA ISOLATED 06/17/17 00:30 Blood - Peripheral Venous Blood Culture - Final NO GROWTH AFTER 5 DAYS INCUBATION 06/17/17 00:05 Blood - Peripheral Venous Blood Culture - Final Lactobacillus Species 06/17/17 00:41 Stump Gram Stain - Final 06/17/17 00:41 Stump Wound Culture - Final Staphylococcus Aureus Streptococcus Viridans Yeast Like Organism 06/17/17 06:30 Urine - Urine Clean Catch Urine Culture - Final Staphylococcus Aureus Problem List - Problems (1) Diabetic neuropathy Code(s): E11.40 - TYPE 2 DIABETES MELLITUS WITH DIABETIC NEUROPATHY, UNSP Qualifiers: Diabetes mellitus type: type 2 (2) Hyperglycemia Code(s): R73.9 - HYPERGLYCEMIA, UNSPECIFIED (3) Leg wound, left Code(s): S81.802A - UNSPECIFIED OPEN WOUND, LEFT LOWER LEG, INITIAL ENCOUNTER (4) Sepsis Code(s): A41.9 - SEPSIS, UNSPECIFIED ORGANISM (5) Abscess and cellulitis Code(s): L03.90 - CELLULITIS, UNSPECIFIED L02.91 - CUTANEOUS ABSCESS, UNSPECIFIED (6) Gastroparesis due to DM Code(s): E11.43 - TYPE 2 DIABETES W DIABETIC AUTONOMIC (POLY)NEUROPATHY K31.84 - GASTROPARESIS (7) Hyperglycemia due to type 2 diabetes mellitus Code(s): E11.65 - TYPE 2 DIABETES MELLITUS WITH HYPERGLYCEMIA Qualifiers: Diabetes mellitus mcc insulin use: unspecified mcc insulin use status Qualified Code(s): E11.65 - Type 2 diabetes mellitus with hyperglycemia; E11.65 - Type 2 diabetes mellitus with hyperglycemia; E11.65 - Type 2 diabetes mellitus with hyperglycemia; E11.65 - Type 2 diabetes mellitus with hyperglycemia (8) Nausea & vomiting Code(s): R11.2 - NAUSEA WITH VOMITING, UNSPECIFIED Qualifiers: Vomiting Intractability: intractable Assessment/Plan Pt s/p Lt thigh I+D - culture results noted - continue on antibiotics for now - wbc lower, afebrile - needs pain control
[2017-07-08] MEDS ORDERED: LORazepam 2 MG/ML SDV VIAL IVPUSH PRN (15:34)
[2017-07-08] MEDS: LIDOCAINE 5% TOPICAL PATCH TP SCH (22:13)
[2017-07-09] MEDS: PIPERACILLIN/TAZOB 3.375 GM 50 ML IVPB SCH ×3 (02:18→17:05)
[2017-07-09] MEDS: ACETAMINOPHEN 325 MG TABLET (FP) PO PRN ×5 (02:21→19:59)
[2017-07-09] MEDS: oxyCODONE HCL 5 MG TABLET PO PRN ×5 (02:21→19:59)
[2017-07-09] MEDS: GABAPENTIN 100 MG CAPSULE (FP) PO SCH ×2 (06:21→13:44)
[2017-07-09] MEDS: INSULIN DETEMIR 100 UNITS/ML MDV SQ SCH (06:21)
[2017-07-09] MEDS: INSULIN SLIDING SCALE (NOVOLOG) 1 VIAL SQ SCH ×4 (06:21→22:16)
[2017-07-09 08:16] LABS: MCH 24.2 pg (25.7-33.7); MCHC 32.1 g/dl (32.0-35.9); MEAN CELL VOLUME 75.5 fl (80-96); MEAN PLT VOLUME 6.5 fl (7.5-11.1); PLATELET COUNT 749 K/MM3 (134-434); RDW 16.1 % (11.9-15.9); WHITE BLOOD COUNT 15.3 K/mm3 (4.0-10.0)
[2017-07-09] MEDS: FE POLYSAC/CYANOCOBAL/FA COMBO CAPSULE PO SCH (10:12)
[2017-07-09] MEDS: RANITIDINE HCL 150 MG TABLET (FP) PO SCH (10:12)
[2017-07-09] MEDS: LISINOPRIL 20 MG TABLET (FP) PO SCH (10:12)
[2017-07-09] MEDS: COLLAGENASE CLOSTRIDIUM HIST. 30 GRAMS TUBE TP SCH (10:12)
[2017-07-09] MEDS: ZINC OXIDE 20% TOPICAL OINTMENT 30 GM TUBE TP SCH ×2 (10:12→22:13)
[2017-07-09] MEDS: POLYETHYLENE GLYCOL 3350 119 GM BTL PO SCH (10:12)
[2017-07-09] MEDS: LIDOCAINE PATCH REMOVAL MC SCH (10:23)
--- NOTE | 2017-07-09 17:00 | PN ---
Physical Exam: SUBJECTIVE: Patient seen and examined. He says the pain is worse than before hes had debridement. His pain medication lasts 45 mins Events: - Tmax 101.8 yesterday, no further since OBJECTIVE: Vital Signs Period Temp Pulse Resp BP Sys/Monet Pulse Ox Last 24 Hr 97.3 F-98.9 F 90-113 18-20 108-129/63-80 98-98 PE Neuro: alert, awake, cn 2-12intact Pulm: CTAB CV: s1 s2 rrr Abd: s nt nd + bs Ext: L BKA with wound vac and + drainage, posterior thigh +tender Laboratory Results - last 24 hr 07/08/17 07/08/17 07/09/17 16:41 22:10 06:05 WBC 15.3 H D RBC 3.33 L Hgb 8.1 L Hct 25.1 L MCV 75.5 L MCH 24.2 L MCHC 32.1 RDW 16.1 H Plt Count 749 H MPV 6.5 L POC Glucometer 211 214 Active Medications Generic Name Dose Route Start Last Admin Trade Name Freq PRN Reason Stop Dose Admin Acetaminophen 650 mg 07/05/17 10:25 07/09/17 14:26 Tylenol - PO 650 mg Q4H PRN Administration FEVER OR PAIN B12/Folic Ac/Intrin Fact/Iron/Vit C 1 each 07/06/17 10:00 07/09/17 10:12 Niferex-150 Forte - PO Not Given DAILY JESUS Collagenase 1 applic 07/06/17 10:00 07/09/17 10:12 Santyl - TP Not Given DAILY JESUS Diphenhydramine HCl 25 mg 07/05/17 10:25 Benadryl Injection - IVPB Q8H PRN NAUSEA Docusate Sodium 100 mg 07/05/17 10:25 Colace - PO Q8H PRN CONSTIPATION Gabapentin 100 mg 07/05/17 14:00 07/09/17 13:44 Neurontin - PO 100 mg TID JESUS Administration Piperacillin/Tazobactam/Dextrose 50 mls @ 100 mls/hr 07/05/17 18:00 07/09/17 10 :10 Zosyn 3.375gm Ivpb (Premix) IVPB 100 mls/hr Q8H-IV JESUS Administration Protocol Insulin Aspart 1 vial 07/05/17 11:00 07/09/17 16:51 Novolog Vial Sliding Scale - SQ Not Given ACHS [facility] Protocol Insulin Detemir 15 units 07/06/17 07:00 07/09/17 06:21 Levemir Vial SQ 15 unit AM JESUS Administration Lidocaine 1 patch 07/05/17 22:00 07/08/17 22:13 Lidoderm Patch - TP 1 patch HS JESUS Administration Lisinopril 30 mg 07/06/17 10:00 07/09/17 10:12 Prinivil PO Not Given DAILY JESUS Lorazepam 1 mg 07/08/17 15:34 Ativan Injection - IVPUSH Q12H PRN ANXIETY Metoclopramide HCl 10 mg 07/05/17 10:25 Reglan Injection - IVPB Q8H PRN NAUSEA AND/OR VOMITING Miscellaneous 1 each 07/06/17 10:00 07/09/17 10:23 Lidoderm Patch Removal MC 1 each DAILY JESUS Administration Multi-Ingredient Ointment 1 applic 07/06/17 15:45 07/09/17 10:12 Zinc Oxide TP Not Given BID JESUS Oxycodone HCl 10 mg 07/05/17 10:25 07/09/17 14:25 Roxicodone - PO 10 mg Q4H PRN Administration PAIN Polyethylene Glycol 17 gm 07/06/17 10:00 07/09/17 10:12 Miralax (For Daily Use) - PO Not Given DAILY JESUS Ranitidine HCl 150 mg 07/06/17 10:00 07/09/17 10:12 Zantac - PO Not Given DAILY JESUS Assessment: 47 year old male with PMHx of DM, multiple soft tissue infections, hx of MRSA, s/p left BKA who presented to the ED with worsening posterior left leg pain x1 week. Plan: 1. Sepsis 2/2 diabetic wound - s/p debridement 07/05 - Wound vac placed yesterday - [facility] to order wound vac for their facility, [facility] - Vanco stopped 07/07 - Continue zosyn, transition to PO abx per ID 2. Left lower extremity pain - Increased pain - Will order CT LE w/o contrast eval posterior thigh 3. DM II - Levemir 15u sq AM - BGM, ISS, ACHS 4. DKA - Resolved 5. F/E/N: - Severe hypoalbuminemia 6. Acute blood loss anemia - likely of chronic disease - Pt asymptomatic - Will monitor hgb and transfuse as needed 7. Thrombocytosis - Likely reactive, mildly down trending - Monitor 8. Prophylaxis - Heparin 5,000u sq tid - PT Dispo: - Plan for Serge Jason [place] Visit type - Emergency Visit Emergency Visit: Yes ED Registration Date: 06/17/17 Care time: The patient presented to the Emergency Department on the above date and was hospitalized for further evaluation of their emergent condition. - New Patient This patient is new to me today: No - Critical Care Critical Care patient: No
--- NOTE | 2017-07-09 17:58 | PN ---
Progress Note, Physician History of Present Illness: Pt with fever 101.8 last night. Afebrile today. Still c/o pain but no other complaints. Denies chills, cough, shortness of breath, dysuria, abd pain/n/v/d. - Current Medication List Current Medications: Active Medications Acetaminophen (Tylenol -) 650 mg PO Q4H PRN PRN Reason: FEVER OR PAIN Last Admin: 07/09/17 14:26 Dose: 650 mg B12/Folic Ac/Intrin Fact/Iron/Vit C (Niferex-150 Forte -) 1 each PO DAILY [facility] Last Admin: 07/09/17 10:12 Dose: Not Given Collagenase (Santyl -) 1 applic TP DAILY [facility] Last Admin: 07/09/17 10:12 Dose: Not Given Diphenhydramine HCl (Benadryl Injection -) 25 mg IVPB Q8H PRN PRN Reason: NAUSEA Docusate Sodium (Colace -) 100 mg PO Q8H PRN PRN Reason: CONSTIPATION Gabapentin (Neurontin -) 300 mg PO TID [facility] Piperacillin/Tazobactam/Dextrose (Zosyn 3.375gm Ivpb (Premix)) 50 mls @ 100 mls /hr IVPB Q8H-IV JESUS PRN Reason: Protocol Last Admin: 07/09/17 17:05 Dose: 100 mls/hr Vancomycin HCl 1,000 mg/ (Dextrose) 250 mls @ 250 mls/hr IVPB BID JESUS PRN Reason: Protocol Insulin Aspart (Novolog Vial Sliding Scale -) 1 vial SQ ACHS JESUS PRN Reason: Protocol Last Admin: 07/09/17 16:51 Dose: Not Given Insulin Detemir (Levemir Vial) 15 units SQ AM [facility] Last Admin: 07/09/17 06:21 Dose: 15 unit Lidocaine (Lidoderm Patch -) 1 patch TP HS [facility] Last Admin: 07/08/17 22:13 Dose: 1 patch Lisinopril (Prinivil) 30 mg PO DAILY [facility] Last Admin: 07/09/17 10:12 Dose: Not Given Lorazepam (Ativan Injection -) 1 mg IVPUSH Q12H PRN PRN Reason: ANXIETY Metoclopramide HCl (Reglan Injection -) 10 mg IVPB Q8H PRN PRN Reason: NAUSEA AND/OR VOMITING Miscellaneous (Lidoderm Patch Removal) 1 each MC DAILY [facility] Last Admin: 07/09/17 10:23 Dose: 1 each Multi-Ingredient Ointment (Zinc Oxide) 1 applic TP BID [facility] Last Admin: 07/09/17 10:12 Dose: Not Given Oxycodone HCl (Roxicodone -) 10 mg PO Q4H PRN PRN Reason: PAIN Last Admin: 07/09/17 14:25 Dose: 10 mg Polyethylene Glycol (Miralax (For Daily Use) -) 17 gm PO DAILY [facility] Last Admin: 07/09/17 10:12 Dose: Not Given Ranitidine HCl (Zantac -) 150 mg PO DAILY [facility] Last Admin: 07/09/17 10:12 Dose: Not Given - Objective Vital Signs: Vital Signs Temperature 97.3 F L 07/09/17 15:01 Pulse Rate 93 H 07/09/17 15:01 Respiratory Rate 18 07/09/17 15:01 Blood Pressure 128/80 07/09/17 15:01 O2 Sat by Pulse Oximetry (%) 98 07/09/17 09:00 Constitutional: Yes: No Distress Cardiovascular: Yes: Regular Rate and Rhythm Respiratory: Yes: Regular Gastrointestinal: Yes: Normal Bowel Sounds, Soft Extremities: Yes: Other (Lt BKA, Left lateral thigh wound vac , +tenderness to touch, no significant erythema noted) Wound/Incision: Yes: Other (Lt thigh wound vac) Neurological: Yes: Alert, Oriented Labs: CBC, BMP 07/09/17 06:05 07/07/17 06:30 INR, PTT INR 1.09 (0.82-1.09) 07/05/17 06:00 Problem List - Problems (1) Diabetic neuropathy Code(s): E11.40 - TYPE 2 DIABETES MELLITUS WITH DIABETIC NEUROPATHY, UNSP Qualifiers: Diabetes mellitus type: type 2 (2) Hyperglycemia Code(s): R73.9 - HYPERGLYCEMIA, UNSPECIFIED (3) Leg wound, left Code(s): S81.802A - UNSPECIFIED OPEN WOUND, LEFT LOWER LEG, INITIAL ENCOUNTER (4) Sepsis Code(s): A41.9 - SEPSIS, UNSPECIFIED ORGANISM (5) Abscess and cellulitis Code(s): L03.90 - CELLULITIS, UNSPECIFIED L02.91 - CUTANEOUS ABSCESS, UNSPECIFIED (6) Gastroparesis due to DM Code(s): E11.43 - TYPE 2 DIABETES W DIABETIC AUTONOMIC (POLY)NEUROPATHY K31.84 - GASTROPARESIS (7) Hyperglycemia due to type 2 diabetes mellitus Code(s): E11.65 - TYPE 2 DIABETES MELLITUS WITH HYPERGLYCEMIA Qualifiers: Diabetes mellitus 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 bug exterminator insulin use: unspecified usp insulin use status Qualified Code(s): E11.65 - Type 2 diabetes mellitus with hyperglycemia; E11.65 - Type 2 diabetes mellitus with hyperglycemia; E11.65 - Type 2 diabetes mellitus with hyperglycemia; E11.65 - Type 2 diabetes mellitus with hyperglycemia (8) Nausea & vomiting Code(s): R11.2 - NAUSEA WITH VOMITING, UNSPECIFIED Qualifiers: Vomiting Intractability: intractable Assessment/Plan Fever Leukocytosis - wbc elevated today Lt BKA Left thigh wound infection/ wound vac in place DM - ordered Blood cultures - restart Vancomycin IV and monitor temps, if fever persists will consider switch from Zosyn to Meropenem - monitor cbc, bmp - needs pain control pt appears stable at this time
[2017-07-09] MEDS ORDERED: INSULIN (NOVOLOG) ASPART 100 UNITS/ML 10ML VIAL ONE (20:56)
[2017-07-09] MEDS: GABAPENTIN 300 MG CAPSULE (FP) PO SCH (22:12)
[2017-07-09] MEDS: VANCOMYCIN 1,000 MG in DEXTROSE 5%-WATER - 250 ML IVPB SCH (22:12)
[2017-07-09] MEDS: LIDOCAINE 5% TOPICAL PATCH TP SCH (22:12)
[2017-07-10] MEDS: PIPERACILLIN/TAZOB 3.375 GM 50 ML IVPB SCH ×3 (02:15→18:11)
[2017-07-10] MEDS: oxyCODONE HCL 5 MG TABLET PO PRN ×6 (02:35→23:36)
[2017-07-10] MEDS: ACETAMINOPHEN 325 MG TABLET (FP) PO PRN ×6 (02:36→23:36)
[2017-07-10] MEDS: GABAPENTIN 300 MG CAPSULE (FP) PO SCH ×3 (06:17→21:49)
[2017-07-10] MEDS: INSULIN DETEMIR 100 UNITS/ML MDV SQ SCH (06:20)
[2017-07-10] MEDS: INSULIN SLIDING SCALE (NOVOLOG) 1 VIAL SQ SCH ×4 (06:21→21:49)
[2017-07-10] MEDS ORDERED: INSULIN (NOVOLOG) ASPART 100 UNITS/ML 10ML VIAL ONE (06:27)
[2017-07-10 06:58] LABS: ALBUMIN 1.4 g/dl (3.4-5.0); ANION GAP 10 (8-16); CALCIUM 7.8 mg/dL (8.5-10.1); CO2 22 mmol/L (21-32); GLUCOSE,RANDOM 242 mg/dL (74-106); SGOT/AST 20 U/L (15-37); SGPT/ALT 9 U/L (12-78)
[2017-07-10 07:00] LABS: ALK PHOS 378 U/L (45-117); BILIRUBIN,TOTAL 0.3 mg/dL (0.2-1.0); CREATININE 0.8 mg/dL (0.7-1.3); TOT PROT 5.7 g/dl (6.4-8.2)
[2017-07-10 07:03] LABS: BASOPHIL 0.4 % (0-2.0); EOSINOPHIL 5.2 % (0-4.5); MCH 24.5 pg (25.7-33.7); MCHC 32.8 g/dl (32.0-35.9); MEAN CELL VOLUME 74.6 fl (80-96); MEAN PLT VOLUME 6.6 fl (7.5-11.1); NEUTROPHILS 81.7 % (42.8-82.8); PLATELET COUNT 779 K/MM3 (134-434); RDW 16.5 % (11.9-15.9); WHITE BLOOD COUNT 14.7 K/mm3 (4.0-10.0)
--- NOTE | 2017-07-10 07:55 | PN ---
Physical Exam: SUBJECTIVE: Patient seen and examined at the bedside. OBJECTIVE: left lateral wound leg with wound vac with copious/moderate amounts of jo purulent drainage. Patient spiked fever of 101.8 on 07/08, put back on Vanco by ID on 07.09.17 WBC 11.7>15.3>14.7 Discharge planning, likely to [facility], [place]. once cleared by ID Vital Signs Period Temp Pulse Resp BP Sys/Monet Pulse Ox Last 24 Hr 97.3 F-99 F 90-102 18-20 114-146/65-92 98-98 GENERAL: The patient is awake, alert, and fully oriented, very anxious, cooperative HEAD: Normal with no signs of trauma. EYES: PERRL, extraocular movements intact, sclera anicteric, conjunctiva clear. No ptosis. ENT: Ears normal, nares patent, oropharynx clear without exudates, moist mucous membranes. NECK: Trachea midline, full range of motion, supple. LUNGS: Breath sounds equal, clear to auscultation bilaterally, no wheezes HEART: Regular rate and rhythm, S1, S2 without murmur, rub or gallop. ABDOMEN: Soft, nontender, nondistended, normoactive bowel sounds, no guarding, no rebound, no hepatosplenomegaly, no masses. EXTREMITIES: Left BKA, Left lateral leg wound now draining jo purulent, wound vac in place NEUROLOGICAL: Normal speech, gait not observed. PSYCH: Normal mood, normal affect. Laboratory Results - last 24 hr 07/09/17 07/09/17 07/09/17 06:05 06:16 11:01 WBC 15.3 H D RBC 3.33 L Hgb 8.1 L Hct 25.1 L MCV 75.5 L MCH 24.2 L MCHC 32.1 RDW 16.1 H Plt Count 749 H MPV 6.5 L Neutrophils % Lymphocytes % Monocytes % Eosinophils % Basophils % Sodium Potassium Chloride Carbon Dioxide Anion Gap BUN Creatinine Creat Clearance w eGFR POC Glucometer 250 151 Random Glucose Calcium Total Bilirubin AST ALT Alkaline Phosphatase Total Protein Albumin 07/09/17 07/09/17 07/10/17 16:49 22:16 05:35 WBC 14.7 H RBC 3.19 L Hgb 7.8 L Hct 23.8 L MCV 74.6 L MCH 24.5 L MCHC 32.8 RDW 16.5 H Plt Count 779 H MPV 6.6 L Neutrophils % 81.7 Lymphocytes % 8.3 Monocytes % 4.4 Eosinophils % 5.2 H D Basophils % 0.4 Sodium Potassium Chloride Carbon Dioxide Anion Gap BUN Creatinine Creat Clearance w eGFR POC Glucometer 136 284 Random Glucose Calcium Total Bilirubin AST ALT Alkaline Phosphatase Total Protein Albumin 07/10/17 07/10/17 05:35 06:20 WBC RBC Hgb Hct MCV MCH MCHC RDW Plt Count MPV Neutrophils % Lymphocytes % Monocytes % Eosinophils % Basophils % Sodium 137 Potassium 4.1 Chloride 105 Carbon Dioxide 22 Anion Gap 10 BUN 8 Creatinine 0.8 Creat Clearance w eGFR > 60 POC Glucometer 276 Random Glucose 242 H Calcium 7.8 L Total Bilirubin 0.3 D AST 20 D ALT 9 L D Alkaline Phosphatase 378 H Total Protein 5.7 L Albumin 1.4 L D Active Medications Generic Name Dose Route Start Last Admin Trade Name Freq PRN Reason Stop Dose Admin Acetaminophen 650 mg 07/05/17 10:25 07/10/17 06:18 Tylenol - PO 650 mg Q4H PRN Administration FEVER OR PAIN B12/Folic Ac/Intrin Fact/Iron/Vit C 1 each 07/06/17 10:00 07/09/17 10:12 Niferex-150 Forte - PO Not Given DAILY JESUS Collagenase 1 applic 07/06/17 10:00 07/09/17 10:12 Santyl - TP Not Given DAILY JESUS Diphenhydramine HCl 25 mg 07/05/17 10:25 Benadryl Injection - IVPB Q8H PRN NAUSEA Docusate Sodium 100 mg 07/05/17 10:25 Colace - PO Q8H PRN CONSTIPATION Gabapentin 300 mg 07/09/17 22:00 07/10/17 06:17 Neurontin - PO 300 mg TID JESUS Administration Piperacillin/Tazobactam/Dextrose 50 mls @ 100 mls/hr 07/05/17 18:00 07/10/17 02 :15 Zosyn 3.375gm Ivpb (Premix) IVPB 100 mls/hr Q8H-IV JESUS Administration Protocol Vancomycin HCl 1,000 mg/ 250 mls @ 166.667 mls/hr 07/09/17 22:00 07/09/17 22:12 Dextrose IVPB 166.667 mls/hr BID JESUS Administration Protocol Insulin Aspart 1 vial 10/25/17 11:00 07/10/17 06:21 Novolog Vial Sliding Scale - SQ 3 units ACHS JESUS Administration Protocol Insulin Detemir 15 units 07/06/17 07:00 07/10/17 06:20 Levemir Vial SQ Not Given AM JESUS Lidocaine 1 patch 07/05/17 22:00 07/09/17 22:12 Lidoderm Patch - TP 1 patch HS JESUS Administration Lisinopril 30 mg 07/06/17 10:00 07/09/17 10:12 Prinivil PO Not Given DAILY JESUS Lorazepam 1 mg 07/08/17 15:34 Ativan Injection - IVPUSH Q12H PRN ANXIETY Metoclopramide HCl 10 mg 07/05/17 10:25 Reglan Injection - IVPB Q8H PRN NAUSEA AND/OR VOMITING Miscellaneous 1 each 07/06/17 10:00 07/09/17 10:23 Lidoderm Patch Removal MC 1 each DAILY JESUS Administration Multi-Ingredient Ointment 1 applic 07/06/17 15:45 07/09/17 22:13 Zinc Oxide TP Not Given BID JESUS Oxycodone HCl 10 mg 07/05/17 10:25 07/10/17 06:17 Roxicodone - PO 10 mg Q4H PRN Administration PAIN Polyethylene Glycol 17 gm 07/06/17 10:00 07/09/17 10:12 Miralax (For Daily Use) - PO Not Given DAILY JESUS Ranitidine HCl 150 mg 07/06/17 10:00 07/09/17 10:12 Zantac - PO Not Given DAILY JESUS ASSESSMENT/PLAN: Patient is a 47 year old male with a significant past medical history of diabetes mellitus, multiple soft tissue infections and left BKA. He comes to the ED on 06/17/2017 complaining of left leg pain for the past week. The pain is located behind left knee and radiates up the posterior thigh. This pain was associated with fever, chills, nausea, vomiting and body aches. He was seeing Dr. Jennings at the wound care clinic and was undergoing hyperbaric treatment. ID: Sepsis secondary to diabetic wound, acute/not resolved A/P: WBC in last 72 hours 11.7>15.3>14.7, fever of 101.8 on 07/08, Vanco added on 07/09 by ID s/p debridement with Dr. Jennings on 07/05/2017 Patient on Zosyn, Vanco re-introduced on 07/09 after fever spike and WBC in increase on 07/09 Patient has moderate amount of pus on wound care vac container Endocrine: Hyperglycemia vs DKA, resolved A/P: Anion gap now closed On Levemir 15 units daily Becomes symptomatic when blood sugars go below 150, goal is to keep BS around 150-200s Cardiology: Hypertension, improving A/P: Lisinopril uptitrated to 30mg daily on 07/03 Monitor BP Renal: KENDRICK, resolved A/P: monitor daily labs F.E.N. Fluids: toleratine PO Electrolytes: monitor electrolytes Nutrition: diabetic diet Prophylaxis: DVT: heparin BID GI: pepcid, reglan Disposition: Full code. Visit type - Emergency Visit Emergency Visit: Yes ED Registration Date: 06/17/17 Care time: The patient presented to the Emergency Department on the above date and was hospitalized for further evaluation of their emergent condition. - New Patient This patient is new to me today: No - Critical Care Critical Care patient: No - Discharge Referral Referred to [facility] Med P.C.: No
[2017-07-10] MEDS ORDERED: PT OWN MED DRAWER 7, Y5N ONE ×2 (10:27→21:43)
[2017-07-10] MEDS: RANITIDINE HCL 150 MG TABLET (FP) PO SCH (10:33)
[2017-07-10] MEDS: LISINOPRIL 20 MG TABLET (FP) PO SCH (10:33)
[2017-07-10] MEDS: LIDOCAINE PATCH REMOVAL MC SCH (10:34)
[2017-07-10] MEDS: ZINC OXIDE 20% TOPICAL OINTMENT 30 GM TUBE TP SCH ×2 (10:38→22:25)
[2017-07-10] MEDS: COLLAGENASE CLOSTRIDIUM HIST. 30 GRAMS TUBE TP SCH (10:38)
[2017-07-10] MEDS: POLYETHYLENE GLYCOL 3350 119 GM BTL PO SCH (10:38)
[2017-07-10] MEDS: FE POLYSAC/CYANOCOBAL/FA COMBO CAPSULE PO SCH (10:38)
[2017-07-10] MEDS: VANCOMYCIN 1,000 MG in DEXTROSE 5%-WATER - 250 ML IVPB SCH ×2 (11:15→21:49)
--- NOTE | 2017-07-10 12:25 | PN ---
Progress Note, Physician History of Present Illness: events noted patient spiked a temp wbc jumped up wound vac draining quite a bit patient mentions pain has increased - Current Medication List Current Medications: Active Medications Acetaminophen (Tylenol -) 650 mg PO Q4H PRN PRN Reason: FEVER OR PAIN Last Admin: 07/10/17 10:33 Dose: 650 mg B12/Folic Ac/Intrin Fact/Iron/Vit C (Niferex-150 Forte -) 1 each PO DAILY [facility] Last Admin: 07/10/17 10:38 Dose: Not Given Collagenase (Santyl -) 1 applic TP DAILY [facility] Last Admin: 07/10/17 10:38 Dose: Not Given Diphenhydramine HCl (Benadryl Injection -) 25 mg IVPB Q8H PRN PRN Reason: NAUSEA Docusate Sodium (Colace -) 100 mg PO Q8H PRN PRN Reason: CONSTIPATION Gabapentin (Neurontin -) 300 mg PO TID [facility] Last Admin: 07/10/17 06:17 Dose: 300 mg Piperacillin/Tazobactam/Dextrose (Zosyn 3.375gm Ivpb (Premix)) 50 mls @ 100 mls /hr IVPB Q8H-IV JESUS PRN Reason: Protocol Last Admin: 07/10/17 10:38 Dose: 100 mls/hr Vancomycin HCl 1,000 mg/ (Dextrose) 250 mls @ 166.667 mls/hr IVPB BID JESUS PRN Reason: Protocol Last Admin: 07/10/17 11:15 Dose: 166.667 mls/hr Insulin Aspart (Novolog Vial Sliding Scale -) 1 vial SQ ACHS JESUS PRN Reason: Protocol Last Admin: 07/10/17 12:03 Dose: 3 units Insulin Detemir (Levemir Vial) 15 units SQ AM [facility] Last Admin: 07/10/17 06:20 Dose: Not Given Lidocaine (Lidoderm Patch -) 1 patch TP HS [facility] Last Admin: 07/09/17 22:12 Dose: 1 patch Lisinopril (Prinivil) 30 mg PO DAILY [facility] Last Admin: 07/10/17 10:33 Dose: 30 mg Lorazepam (Ativan Injection -) 1 mg IVPUSH Q12H PRN PRN Reason: ANXIETY Metoclopramide HCl (Reglan Injection -) 10 mg IVPB Q8H PRN PRN Reason: NAUSEA AND/OR VOMITING Miscellaneous (Lidoderm Patch Removal) 1 each MC DAILY [facility] Last Admin: 07/10/17 10:34 Dose: 1 each Multi-Ingredient Ointment (Zinc Oxide) 1 applic TP BID [facility] Last Admin: 07/10/17 10:38 Dose: Not Given Oxycodone HCl (Roxicodone -) 10 mg PO Q4H PRN PRN Reason: PAIN Last Admin: 07/10/17 10:34 Dose: 10 mg Polyethylene Glycol (Miralax (For Daily Use) -) 17 gm PO DAILY [facility] Last Admin: 07/10/17 10:38 Dose: Not Given Ranitidine HCl (Zantac -) 150 mg PO DAILY [facility] Last Admin: 07/10/17 10:33 Dose: Not Given - Objective Vital Signs: Vital Signs Temperature 98.3 F 07/10/17 09:20 Pulse Rate 103 H 07/10/17 09:20 Respiratory Rate 20 07/10/17 09:20 Blood Pressure 153/90 07/10/17 09:20 O2 Sat by Pulse Oximetry (%) 98 07/10/17 09:00 Constitutional: Yes: No Distress, Calm Cardiovascular: Yes: Regular Rate and Rhythm Respiratory: Yes: Regular, CTA Bilaterally Gastrointestinal: Yes: Normal Bowel Sounds, Soft Musculoskeletal: Yes: Other Extremities: Yes: Other Wound/Incision: Yes: Other (wound vac in place) Neurological: Yes: Alert, Oriented Psychiatric: Yes: Alert, Oriented Labs: CBC, BMP 07/10/17 05:35 07/10/17 05:35 INR, PTT INR 1.09 (0.82-1.09) 07/05/17 06:00 Assessment/Plan Problem List - Problems (1) Sepsis Code(s): A41.9 - SEPSIS, UNSPECIFIED ORGANISM (2) Abscess and cellulitis Code(s): L03.90 - CELLULITIS, UNSPECIFIED L02.91 - CUTANEOUS ABSCESS, UNSPECIFIED (3) Cellulitis and abscess of left leg Code(s): L03.116 - CELLULITIS OF LEFT LOWER LIMB L02.416 - CUTANEOUS ABSCESS OF LEFT LOWER LIMB (4) Intractable vomiting with nausea Code(s): R11.2 - NAUSEA WITH VOMITING, UNSPECIFIED Qualifiers: Vomiting type: unspecified Qualified Code(s): R11.2 - Nausea with vomiting, unspecified; R11.2 - Nausea with vomiting, unspecified (5) Noncompliance with diabetes treatment Code(s): Z91.19 - PATIENT'S NONCOMPLIANCE W OTH MEDICAL TREATMENT AND REGIMEN (6) Diabetic ulcer of lower extremity Code(s): E11.622 - TYPE 2 DIABETES MELLITUS WITH OTHER SKIN ULCER L97.909 - NON-PRS CHRONIC ULC UNSP PRT OF UNSP LOW LEG W UNSP SEVERITY lactic acidosis leukocytosis uti wound infection plan vanco was restarted wbc coming down has been afebrile if pain continues to increase wound might have to be relooked at again follow vanco trough
--- NOTE | 2017-07-10 18:01 | PN ---
Progress Note (short form) - Note Progress Note: VAscular Surgery Pt seen and examined. WBC is going up. Had pt turn over and post thigh was palpated. There are areas of induration that could be opened, . CT shows intramuscular abscess. Will speak to ID and plan for Mon. Costa Jennings DO
[2017-07-10] MEDS: LIDOCAINE 5% TOPICAL PATCH TP SCH (21:49)
[2017-07-11] MEDS: PIPERACILLIN/TAZOB 3.375 GM 50 ML IVPB SCH ×3 (01:49→17:21)
[2017-07-11] MEDS: ACETAMINOPHEN 325 MG TABLET (FP) PO PRN ×5 (04:13→23:16)
[2017-07-11] MEDS: oxyCODONE HCL 5 MG TABLET PO PRN ×5 (04:14→23:15)
[2017-07-11] MEDS: INSULIN SLIDING SCALE (NOVOLOG) 1 VIAL SQ SCH ×4 (06:23→23:14)
[2017-07-11] MEDS: INSULIN DETEMIR 100 UNITS/ML MDV SQ SCH (06:23)
[2017-07-11] MEDS: GABAPENTIN 300 MG CAPSULE (FP) PO SCH ×3 (06:24→23:15)
[2017-07-11] MEDS ORDERED: INSULIN DETEMIR 100 UNITS/ML MDV SQ ONE (06:36)
[2017-07-11] MEDS ORDERED: INSULIN (NOVOLOG) ASPART 100 UNITS/ML 10ML VIAL ONE (06:36)
[2017-07-11 07:43] LABS: BASOPHIL 1.7 % (0-2.0); EOSINOPHIL 5.9 % (0-4.5); MCHC 31.9 g/dl (32.0-35.9); MEAN CELL VOLUME 75.2 fl (80-96); MEAN PLT VOLUME 6.5 fl (7.5-11.1); NEUTROPHILS 78.2 % (42.8-82.8); PLATELET COUNT 722 K/MM3 (134-434); RDW 16.2 % (11.9-15.9)
[2017-07-11 08:39] LABS: ALBUMIN 1.3 g/dl (3.4-5.0); ALK PHOS 409 U/L (45-117); ANION GAP 8 (8-16); BILIRUBIN,TOTAL 0.9 mg/dL (0.2-1.0); CALCIUM 7.7 mg/dL (8.5-10.1); CO2 23 mmol/L (21-32); CREATININE 0.9 mg/dL (0.7-1.3); GLUCOSE,RANDOM 223 mg/dL (74-106); SGOT/AST 18 U/L (15-37); SGPT/ALT 13 U/L (12-78)
[2017-07-11] MEDS: LISINOPRIL 20 MG TABLET (FP) PO SCH (10:13)
[2017-07-11] MEDS: POLYETHYLENE GLYCOL 3350 119 GM BTL PO SCH (10:14)
[2017-07-11] MEDS: LIDOCAINE PATCH REMOVAL MC SCH (10:14)
[2017-07-11] MEDS: COLLAGENASE CLOSTRIDIUM HIST. 30 GRAMS TUBE TP SCH (10:16)
[2017-07-11] MEDS: ZINC OXIDE 20% TOPICAL OINTMENT 30 GM TUBE TP SCH ×2 (10:16→23:27)
[2017-07-11] MEDS: VANCOMYCIN 1,000 MG in DEXTROSE 5%-WATER - 250 ML IVPB SCH ×2 (10:16→23:14)
[2017-07-11] MEDS: RANITIDINE HCL 150 MG TABLET (FP) PO SCH (10:16)
[2017-07-11] MEDS ORDERED: PT OWN MED DRAWER 7, Y5N ONE ×2 (10:19→23:07)
[2017-07-11] MEDS: FE POLYSAC/CYANOCOBAL/FA COMBO CAPSULE PO SCH (10:19)
--- NOTE | 2017-07-11 11:30 | PN ---
Physical Exam: SUBJECTIVE: Patient seen and examined. OBJECTIVE: left lateral wound leg with wound vac with copious/moderate amounts of jo purulent drainage. Patient spiked fever of 101.8 on 07/08, put back on Vanco by ID on 07.09.17 WBC 11.7>15.3>14.7>12 Plan for OR tomorrow CT scan 07/10/2017 shows intramuscular abscess Vital Signs Period Temp Pulse Resp BP Sys/Monet Pulse Ox Last 24 Hr 98.1 F-98.9 F 91-105 20-20 112-140/69-80 100 GENERAL: The patient is awake, alert, and fully oriented, very anxious, cooperative HEAD: Normal with no signs of trauma. EYES: PERRL, extraocular movements intact, sclera anicteric, conjunctiva clear. No ptosis. ENT: Ears normal, nares patent, oropharynx clear without exudates, moist mucous membranes. NECK: Trachea midline, full range of motion, supple. LUNGS: Breath sounds equal, clear to auscultation bilaterally, no wheezes HEART: Regular rate and rhythm, S1, S2 without murmur, rub or gallop. ABDOMEN: Soft, nontender, nondistended, normoactive bowel sounds, no guarding, no rebound, no hepatosplenomegaly, no masses. EXTREMITIES: Left BKA, Left lateral leg wound now draining jo purulent, wound vac in place, Left BKA NEUROLOGICAL: Normal speech, gait not observed. PSYCH: Normal mood, normal affect. Laboratory Results - last 24 hr 07/10/17 07/10/17 07/10/17 11:59 12:02 16:30 WBC RBC Hgb Hct MCV MCH MCHC RDW Plt Count MPV Neutrophils % Lymphocytes % Monocytes % Eosinophils % Basophils % Sodium Potassium Chloride Carbon Dioxide Anion Gap BUN Creatinine Creat Clearance w eGFR POC Glucometer 334 295 249 Random Glucose Calcium Total Bilirubin AST ALT Alkaline Phosphatase Total Protein Albumin 07/10/17 07/11/17 07/11/17 21:32 06:00 06:00 WBC 12.0 H RBC 3.31 L Hgb 7.9 L Hct 24.9 L MCV 75.2 L MCH 24.0 L MCHC 31.9 L RDW 16.2 H Plt Count 722 H MPV 6.5 L Neutrophils % 78.2 Lymphocytes % 10.6 D Monocytes % 3.6 L Eosinophils % 5.9 H Basophils % 1.7 D Sodium 136 Potassium 4.4 Chloride 105 Carbon Dioxide 23 Anion Gap 8 BUN 8 Creatinine 0.9 Creat Clearance w eGFR > 60 POC Glucometer 237 Random Glucose 223 H Calcium 7.7 L Total Bilirubin 0.9 D AST 18 ALT 13 D Alkaline Phosphatase 409 H Total Protein 6.0 L Albumin 1.3 L Active Medications Generic Name Dose Route Start Last Admin Trade Name Freq PRN Reason Stop Dose Admin Acetaminophen 650 mg 07/05/17 10:25 07/11/17 08:43 Tylenol - PO 650 mg Q4H PRN Administration FEVER OR PAIN B12/Folic Ac/Intrin Fact/Iron/Vit C 1 each 07/06/17 10:00 07/11/17 10:19 Niferex-150 Forte - PO 1 each DAILY JESUS Administration Collagenase 1 applic 07/06/17 10:00 07/11/17 10:16 Santyl - TP Not Given DAILY JESUS Diphenhydramine HCl 25 mg 07/05/17 10:25 Benadryl Injection - IVPB Q8H PRN NAUSEA Docusate Sodium 100 mg 07/05/17 10:25 Colace - PO Q8H PRN CONSTIPATION Gabapentin 300 mg 07/09/17 22:00 07/11/17 06:24 Neurontin - PO 300 mg TID JESUS Administration Piperacillin/Tazobactam/Dextrose 50 mls @ 100 mls/hr 07/05/17 18:00 07/11/17 01 :49 Zosyn 3.375gm Ivpb (Premix) IVPB 100 mls/hr Q8H-IV JESUS Administration Protocol Vancomycin HCl 1,000 mg/ 250 mls @ 166.667 mls/hr 07/09/17 22:00 07/11/17 10:16 Dextrose IVPB 166.667 mls/hr BID JESUS Administration Protocol Insulin Aspart 1 vial 07/05/17 11:00 07/11/17 06:23 Novolog Vial Sliding Scale - SQ 2 units ACHS JESUS Administration Protocol Insulin Detemir 15 units 07/06/17 07:00 07/11/17 06:23 Levemir Vial SQ 15 unit AM JESUS Administration Lidocaine 1 patch 07/05/17 22:00 07/10/17 21:49 Lidoderm Patch - TP 1 patch HS JESUS Administration Lisinopril 30 mg 07/06/17 10:00 07/11/17 10:13 Prinivil PO 30 mg DAILY JESUS Administration Lorazepam 1 mg 07/08/17 15:34 Ativan Injection - IVPUSH Q12H PRN ANXIETY Metoclopramide HCl 10 mg 07/05/17 10:25 Reglan Injection - IVPB Q8H PRN NAUSEA AND/OR VOMITING Miscellaneous 1 each 07/06/17 10:00 07/11/17 10:14 Lidoderm Patch Removal MC 1 each DAILY JESUS Administration Multi-Ingredient Ointment 1 applic 07/06/17 15:45 07/11/17 10:16 Zinc Oxide TP Not Given BID JESUS Oxycodone HCl 10 mg 07/05/17 10:25 07/11/17 08:43 Roxicodone - PO 10 mg Q4H PRN Administration PAIN Polyethylene Glycol 17 gm 07/06/17 10:00 07/11/17 10:14 Miralax (For Daily Use) - PO Not Given DAILY JESUS Ranitidine HCl 150 mg 07/06/17 10:00 07/11/17 10:16 Zantac - PO Not Given DAILY JESUS ASSESSMENT/PLAN: Patient is a 47 year old male with a significant past medical history of diabetes mellitus, multiple soft tissue infections and left BKA. He comes to the ED on 06/17/2017 complaining of left leg pain for the past week. The pain is located behind left knee and radiates up the posterior thigh. This pain was associated with fever, chills, nausea, vomiting and body aches. He was seeing Dr. Jennings at the wound care clinic and was undergoing hyperbaric treatment. Imagin07/10/2017: CT/Lower ext. w/o contrast shows: (1) Interval development of several large thick walled collection within the left hamstring. (2) Phlegmon and/or abscess surrounding the entire course of theleft sciatic nerve with efacement of the round fat planes, has significantly progressed since 06/18/17. (3) Large skin and soft tissue defect overlying the posterolateral inferior left thigh and left knee with surrounding skin thickening, subcutaneous fat stranding and fluid representing some combination of post- surgical changes and cellulits/phlegmon (4) Focal area of demineralization with relatively less distinct cortex in the posterolateral left tibial plateau. Focal demineralization in the lateral aspect of the lateral femoral condyle. They findings may be attributed to osteomylitis (5) Multiple large inguinal, left iliac and pelvic sidewall lymph nodes are most likely reactive. ID: Sepsis secondary to diabetic wound, acute/not resolved A/P: WBC in last 72 hours 15.3>14.7>12 fever of 101.8 on 07/08, Vanco added on 07/09 by ID, afebrile since s/p debridement with Dr. Jennings on 07/05/2017, for OR again tomorrow as CT shows intramuscular abscess Patient on Zosyn, Vanco re-introduced on 07/09 after fever spike and WBC in increase on 07/09 Patient has moderate amount of pus on wound care vac container NPO at midnight for OR Endocrine: Hyperglycemia vs DKA, resolved A/P: Anion gap now closed On Levemir 15 units daily Becomes symptomatic when blood sugars go below 150, goal is to keep BS around 150-200s Cardiology: Hypertension, controlled A/P: Lisinopril uptitrated to 30mg daily on 07/03 Monitor BP Renal: KENDRICK, resolved A/P: monitor daily labs F.E.N. Fluids: tolerating PO Electrolytes: monitor electrolytes Nutrition: diabetic diet/low sodium Prostat to promote wound healing Prophylaxis: DVT: heparin BID GI: pepcid, reglan Disposition: Full code. Visit type - Emergency Visit Emergency Visit: Yes ED Registration Date: 06/17/17 Care time: The patient presented to the Emergency Department on the above date and was hospitalized for further evaluation of their emergent condition. - New Patient This patient is new to me today: No - Critical Care Critical Care patient: No - Discharge Referral Referred to [facility] Med P.C.: No
[2017-07-11] MEDS: HEPARIN NA (PORCINE) 5,000 UNITS/ML 1ML VIAL SQ SCH ×2 (13:55→23:14)
--- NOTE | 2017-07-11 14:04 | PN ---
Progress Note, Physician History of Present Illness: patient feeling better still with lot of [pain vascular plan noted plan for surgery tomorrow - Current Medication List Current Medications: Active Medications Acetaminophen (Tylenol -) 650 mg PO Q4H PRN PRN Reason: FEVER OR PAIN Last Admin: 07/11/17 13:01 Dose: 650 mg Amino Acids (Prosource No Carb Liquid Pkt) 30 ml PO BID@0800,1730 [facility] B12/Folic Ac/Intrin Fact/Iron/Vit C (Niferex-150 Forte -) 1 each PO DAILY [facility] Last Admin: 07/11/17 10:19 Dose: 1 each Diphenhydramine HCl (Benadryl Injection -) 25 mg IVPB Q8H PRN PRN Reason: NAUSEA Docusate Sodium (Colace -) 100 mg PO Q8H PRN PRN Reason: CONSTIPATION Gabapentin (Neurontin -) 300 mg PO TID [facility] Last Admin: 07/11/17 13:55 Dose: 300 mg Heparin Sodium (Porcine) (Heparin -) 5,000 unit SQ TID [facility] Stop: 07/12/17 23:59 Last Admin: 07/11/17 13:55 Dose: 5,000 unit Piperacillin/Tazobactam/Dextrose (Zosyn 3.375gm Ivpb (Premix)) 50 mls @ 100 mls /hr IVPB Q8H-IV JESUS PRN Reason: Protocol Last Admin: 07/11/17 13:00 Dose: 100 mls/hr Vancomycin HCl 1,000 mg/ (Dextrose) 250 mls @ 166.667 mls/hr IVPB BID JESUS PRN Reason: Protocol Last Admin: 07/11/17 10:16 Dose: 166.667 mls/hr Insulin Aspart (Novolog Vial Sliding Scale -) 1 vial SQ ACHS JESUS PRN Reason: Protocol Last Admin: 07/11/17 12:06 Dose: 2 units Insulin Detemir (Levemir Vial) 15 units SQ AM [facility] Last Admin: 07/11/17 06:23 Dose: 15 unit Lidocaine (Lidoderm Patch -) 1 patch TP HS [facility] Last Admin: 07/10/17 21:49 Dose: 1 patch Lisinopril (Prinivil) 30 mg PO DAILY [facility] Last Admin: 07/11/17 10:13 Dose: 30 mg Lorazepam (Ativan Injection -) 1 mg IVPUSH Q12H PRN PRN Reason: ANXIETY Metoclopramide HCl (Reglan Injection -) 10 mg IVPB Q8H PRN PRN Reason: NAUSEA AND/OR VOMITING Miscellaneous (Lidoderm Patch Removal) 1 each MC DAILY [facility] Last Admin: 07/11/17 10:14 Dose: 1 each Multi-Ingredient Ointment (Zinc Oxide) 1 applic TP BID [facility] Last Admin: 07/11/17 10:16 Dose: Not Given Oxycodone HCl (Roxicodone -) 10 mg PO Q4H PRN PRN Reason: PAIN Last Admin: 07/11/17 13:00 Dose: 10 mg Ranitidine HCl (Zantac -) 150 mg PO DAILY [facility] Last Admin: 07/11/17 10:16 Dose: Not Given - Objective Vital Signs: Vital Signs Temperature 98.1 F 07/11/17 13:45 Pulse Rate 94 H 07/11/17 13:45 Respiratory Rate 20 07/11/17 13:45 Blood Pressure 121/68 07/11/17 13:45 O2 Sat by Pulse Oximetry (%) 100 07/11/17 09:00 Constitutional: Yes: No Distress, Calm HENT: Yes: Atraumatic, Normocephalic Neck: Yes: Supple, Trachea Midline Cardiovascular: Yes: Regular Rate and Rhythm Respiratory: Yes: Regular, CTA Bilaterally Gastrointestinal: Yes: Normal Bowel Sounds, Soft Musculoskeletal: Yes: Other Extremities: Yes: Other Integumentary: Yes: Other Wound/Incision: Yes: Other (wound vac in place moris pus draianing) Neurological: Yes: Alert, Oriented Psychiatric: Yes: Alert, Oriented Labs: CBC, BMP 07/11/17 06:00 07/11/17 06:00 INR, PTT INR 1.09 (0.82-1.09) 07/05/17 06:00 - ....Imaging Cat Scan: Report Reviewed, Image Reviewed Assessment/Plan Problem List - Problems (1) Sepsis Code(s): A41.9 - SEPSIS, UNSPECIFIED ORGANISM (2) Abscess and cellulitis Code(s): L03.90 - CELLULITIS, UNSPECIFIED L02.91 - CUTANEOUS ABSCESS, UNSPECIFIED (3) Cellulitis and abscess of left leg Code(s): L03.116 - CELLULITIS OF LEFT LOWER LIMB L02.416 - CUTANEOUS ABSCESS OF LEFT LOWER LIMB (4) Intractable vomiting with nausea Code(s): R11.2 - NAUSEA WITH VOMITING, UNSPECIFIED Qualifiers: Vomiting type: unspecified Qualified Code(s): R11.2 - Nausea with vomiting, unspecified; R11.2 - Nausea with vomiting, unspecified (5) Noncompliance with diabetes treatment Code(s): Z91.19 - PATIENT'S NONCOMPLIANCE W OTH MEDICAL TREATMENT AND REGIMEN (6) Diabetic ulcer of lower extremity Code(s): E11.622 - TYPE 2 DIABETES MELLITUS WITH OTHER SKIN ULCER L97.909 - NON-PRS CHRONIC ULC UNSP PRT OF UNSP LOW LEG W UNSP SEVERITY lactic acidosis leukocytosis uti wound infection intramuscular abscess in the thigh plan i completely agree with vascular,patient needs to be explored after looking at the ct scan continue abx will need it for quite some time pain is main issue
--- NOTE | 2017-07-11 14:09 | PN ---
Progress Note (short form) - Note Progress Note: VAscular Surgery Pt seen and examined. Explained CT results to pt. Will drain abscess from post thigh alvin. This should help decompress the area. NPO past midnight Costa Jennings DO
[2017-07-11] MEDS: AMINO ACIDS/PROTEIN HYDROLYS 30 ML LIQUID.PKT PO SCH (17:19)
[2017-07-11] MEDS: LIDOCAINE 5% TOPICAL PATCH TP SCH (23:13)
[2017-07-12] MEDS: PIPERACILLIN/TAZOB 3.375 GM 50 ML IVPB SCH ×3 (01:01→17:28)
[2017-07-12] MEDS ORDERED: morphine CARPU-JECT 8 MG/1 ML DISP.SYRIN IVPUSH ONE (05:02)
[2017-07-12] MEDS: HEPARIN NA (PORCINE) 5,000 UNITS/ML 1ML VIAL SQ SCH ×3 (05:22→22:16)
[2017-07-12] MEDS: GABAPENTIN 300 MG CAPSULE (FP) PO SCH ×3 (05:23→22:10)
[2017-07-12] MEDS: INSULIN SLIDING SCALE (NOVOLOG) 1 VIAL SQ SCH ×4 (06:19→22:16)
[2017-07-12] MEDS: INSULIN DETEMIR 100 UNITS/ML MDV SQ SCH (06:19)
[2017-07-12] MEDS ORDERED: INSULIN (NOVOLOG) ASPART 100 UNITS/ML 10ML VIAL ONE ×2 (06:58→21:29)
[2017-07-12] MEDS: AMINO ACIDS/PROTEIN HYDROLYS 30 ML LIQUID.PKT PO SCH ×2 (08:06→16:49)
[2017-07-12] MEDS: ZINC OXIDE 20% TOPICAL OINTMENT 30 GM TUBE TP SCH ×2 (09:49→22:16)
[2017-07-12] MEDS: FE POLYSAC/CYANOCOBAL/FA COMBO CAPSULE PO SCH (09:49)
[2017-07-12] MEDS: LISINOPRIL 20 MG TABLET (FP) PO SCH (09:49)
[2017-07-12] MEDS: RANITIDINE HCL 150 MG TABLET (FP) PO SCH (09:49)
[2017-07-12] MEDS: LIDOCAINE PATCH REMOVAL MC SCH ×2 (09:49→22:13)
[2017-07-12] MEDS ORDERED: morphine CARPU-JECT 8 MG/1 ML DISP.SYRIN IVPUSH PRN ×2 (10:14→13:18)
[2017-07-12] MEDS ORDERED: SODIUM CHLORIDE 1,000 ML IV SCH (10:15)
--- NOTE | 2017-07-12 10:16 | PN ---
Progress Note (short form) - Note Progress Note: Subjective: The patient was seen and examined at the bedside, he is crying stating he is in pain. For I&D today Current Medications Generic Name Dose Route Start Last Admin Trade Name Freq PRN Reason Stop Dose Admin Acetaminophen 650 mg 07/05/17 10:25 07/11/17 23:16 Tylenol - PO 650 mg Q4H PRN Administration FEVER OR PAIN Amino Acids 30 ml 07/11/17 17:30 07/12/17 08:06 Prosource No Carb Liquid Pkt PO Not Given BID@0800,1730 [facility] B12/Folic Ac/Intrin Fact/Iron/Vit C 1 each 07/06/17 10:00 07/12/17 09:49 Niferex-150 Forte - PO Not Given DAILY [facility] Diphenhydramine HCl 25 mg 07/05/17 10:25 Benadryl Injection - IVPB Q8H PRN NAUSEA Docusate Sodium 100 mg 07/05/17 10:25 Colace - PO Q8H PRN CONSTIPATION Gabapentin 300 mg 07/09/17 22:00 07/12/17 05:23 Neurontin - PO Not Given TID [facility] Heparin Sodium (Porcine) 5,000 unit 07/11/17 14:00 07/12/17 05:22 Heparin - SQ 07/12/17 23:59 Not Given TID [facility] Piperacillin/Tazobactam/Dextrose 50 mls @ 100 mls/hr 07/05/17 18:00 07/12/17 09 :50 Zosyn 3.375gm Ivpb (Premix) IVPB 100 mls/hr Q8H-IV [facility] Administration Protocol Vancomycin HCl 1,000 mg/ 250 mls @ 166.667 mls/hr 07/09/17 22:00 07/11/17 23:14 Dextrose IVPB 166.667 mls/hr BID [facility] Administration Protocol Sodium Chloride 1,000 mls @ 75 mls/hr 07/12/17 10:15 Normal Saline - IV ASDIR [facility] Insulin Aspart 1 vial 07/05/17 11:00 07/12/17 06:19 Novolog Vial Sliding Scale - SQ Not Given ACHS [facility] Protocol Insulin Detemir 15 units 07/06/17 07:00 07/12/17 06:19 Levemir Vial SQ Not Given AM [facility] Lidocaine 1 patch 07/05/17 22:00 07/11/17 23:13 Lidoderm Patch - TP 1 patch HS [facility] Administration Lisinopril 30 mg 07/06/17 10:00 07/12/17 09:49 Prinivil PO 30 mg DAILY [facility] Administration Lorazepam 1 mg 07/08/17 15:34 Ativan Injection - IVPUSH Q12H PRN ANXIETY Metoclopramide HCl 10 mg 07/05/17 10:25 Reglan Injection - IVPB Q8H PRN NAUSEA AND/OR VOMITING Miscellaneous 1 each 07/06/17 10:00 07/12/17 09:49 Lidoderm Patch Removal MC 1 each DAILY [facility] Administration Morphine Sulfate 2 mg 07/12/17 10:14 Morphine Injection - IVPUSH Q4H PRN PAIN Multi-Ingredient Ointment 1 applic 07/06/17 15:45 07/12/17 09:49 Zinc Oxide TP Not Given BID [facility] Oxycodone HCl 10 mg 07/05/17 10:25 07/11/17 23:15 Roxicodone - PO 10 mg Q4H PRN Administration PAIN Ranitidine HCl 150 mg 07/06/17 10:00 07/12/17 09:49 Zantac - PO Not Given DAILY [facility] Objective: Vital Signs Period Temp Pulse Resp BP Sys/Monet Pulse Ox Last 24 Hr 98.1 F-99.1 F 94-108 18-20 121-139/68-90 Physical Exam: Patient is refusing stating "don't touch me" Left BKA, left leg wound vac in place, purulent drainage CBCD WBC 12.0 K/mm3 (4.0-10.0) H 07/11/17 06:00 RBC 3.31 M/mm3 (4.00-5.60) L 07/11/17 06:00 Hgb 7.9 GM/dL (11.7-16.9) L 07/11/17 06:00 Hct 24.9 % (35.4-49) L 07/11/17 06:00 MCV 75.2 fl (80-96) L 07/11/17 06:00 MCHC 31.9 g/dl (32.0-35.9) L 07/11/17 06:00 RDW 16.2 % (11.9-15.9) H 07/11/17 06:00 Plt Count 722 K/MM3 (134-434) H 07/11/17 06:00 MPV 6.5 fl (7.5-11.1) L 07/11/17 06:00 CMP Sodium 136 mmol/L (136-145) 07/11/17 06:00 Potassium 4.4 mmol/L (3.5-5.1) 07/11/17 06:00 Chloride 105 mmol/L (98-107) 07/11/17 06:00 Carbon Dioxide 23 mmol/L (21-32) 07/11/17 06:00 Anion Gap 8 (8-16) 07/11/17 06:00 BUN 8 mg/dL (7-18) 07/11/17 06:00 Creatinine 0.9 mg/dL (0.7-1.3) 07/11/17 06:00 Creat Clearance w eGFR > 60 (>60) 07/11/17 06:00 Random Glucose 223 mg/dL (74-106) H 07/11/17 06:00 Calcium 7.7 mg/dL (8.5-10.1) L 07/11/17 06:00 Total Bilirubin 0.9 mg/dL (0.2-1.0) D 07/11/17 06:00 AST 18 U/L (15-37) 07/11/17 06:00 ALT 13 U/L (12-78) D 07/11/17 06:00 Alkaline Phosphatase 409 U/L (45-117) H 07/11/17 06:00 Total Protein 6.0 g/dl (6.4-8.2) L 07/11/17 06:00 Albumin 1.3 g/dl (3.4-5.0) L 07/11/17 06:00 CARDIAC ENZYMES Creatine Kinase 69 IU/L (39-308) 06/17/17 12:52 Troponin I < 0.02 ng/ml (0.00-0.05) 06/17/17 00:05 Microbiology 07/09/17 20:00 Blood - Peripheral Venous Blood Culture - Preliminary NO GROWTH OBTAINED AFTER 48 HOURS, INCUBATION TO CONTINUE FOR 3 DAYS. 07/09/17 20:00 Blood - Peripheral Venous Blood Culture - Preliminary NO GROWTH OBTAINED AFTER 48 HOURS, INCUBATION TO CONTINUE FOR 3 DAYS. 07/02/17 19:20 Blood - Peripheral Venous Blood Culture - Final NO GROWTH AFTER 5 DAYS INCUBATION 07/02/17 19:10 Blood - Peripheral Venous Blood Culture - Final NO GROWTH AFTER 5 DAYS INCUBATION 07/05/17 10:00 Leg - Left Lower Gram Stain - Final 07/05/17 10:00 Leg - Left Lower Wound Culture - Final Yeast Like Organism 07/02/17 20:10 Urine - Urine Clean Catch Urine Culture - Final NO GROWTH OBTAINED 06/24/17 16:00 Blood - Peripheral Venous Blood Culture - Final NO GROWTH AFTER 5 DAYS INCUBATION 06/24/17 16:00 Blood - Peripheral Venous Blood Culture - Final NO GROWTH AFTER 5 DAYS INCUBATION 06/23/17 22:00 Nares - Mrsa Screen - Left MRSA Screen - Final NO MRSA ISOLATED 06/23/17 22:00 Nares - Right Nares MRSA Screen - Final NO MRSA ISOLATED 06/17/17 00:30 Blood - Peripheral Venous Blood Culture - Final NO GROWTH AFTER 5 DAYS INCUBATION 06/17/17 00:05 Blood - Peripheral Venous Blood Culture - Final Lactobacillus Species 06/17/17 00:41 Stump Gram Stain - Final 06/17/17 00:41 Stump Wound Culture - Final Staphylococcus Aureus Streptococcus Viridans Yeast Like Organism 06/17/17 06:30 Urine - Urine Clean Catch Urine Culture - Final Staphylococcus Aureus Assessment: This is a 47 year old male with PMHx of DM, multiple soft tissue infections, hx of MRSA, s/p left BKA who presented to the ED with worsening posterior left leg pain x1 week. Plan: 1) ID: Sepsis 2/2 diabetic wound - WBC trending down - Continue Vancomycin - Continue Zosyn - Apppreciate ID consult Left leg intramuscular abscess - S/p debridement on 07/05/17 - To OR today for intramuscular abscess 2) Endocrine: IDDM - Levemir 15u sq AM - BGM ACHS - ISS ACHS 3) F/E/N: - NPO for I&D today - Monitor electrolytes - Hypophosphatemia: resolved - Severe hypoalbuminemia 4) Prophylaxis: - Heparin 5,000u sq tid - PT 5) Dispo: - Requires continued inpatient care CODE STATUS: FULL CODE Visit type - Emergency Visit Emergency Visit: Yes ED Registration Date: 06/17/17 Care time: The patient presented to the Emergency Department on the above date and was hospitalized for further evaluation of their emergent condition. - New Patient This patient is new to me today: No - Critical Care Critical Care patient: No
[2017-07-12] MEDS: VANCOMYCIN 1,000 MG in DEXTROSE 5%-WATER - 250 ML IVPB SCH ×2 (10:29→22:17)
[2017-07-12] MEDS ORDERED: LIDOCAINE HCL 1%, 10 MG/ML (20ML VIAL) ONE (10:44)
--- NOTE | 2017-07-12 12:23 | PN ---
Progress Note, Physician History of Present Illness: going for surgery pain issues will wait after surgery - Current Medication List Current Medications: Active Medications Acetaminophen (Tylenol -) 650 mg PO Q4H PRN PRN Reason: FEVER OR PAIN Last Admin: 07/11/17 23:16 Dose: 650 mg Amino Acids (Prosource No Carb Liquid Pkt) 30 ml PO BID@0800,1730 [facility] Last Admin: 07/12/17 08:06 Dose: Not Given B12/Folic Ac/Intrin Fact/Iron/Vit C (Niferex-150 Forte -) 1 each PO DAILY [facility] Last Admin: 07/12/17 09:49 Dose: Not Given Diphenhydramine HCl (Benadryl Injection -) 25 mg IVPB Q8H PRN PRN Reason: NAUSEA Docusate Sodium (Colace -) 100 mg PO Q8H PRN PRN Reason: CONSTIPATION Gabapentin (Neurontin -) 300 mg PO TID [facility] Last Admin: 07/12/17 05:23 Dose: Not Given Heparin Sodium (Porcine) (Heparin -) 5,000 unit SQ TID [facility] Stop: 07/12/17 23:59 Last Admin: 07/12/17 05:22 Dose: Not Given Piperacillin/Tazobactam/Dextrose (Zosyn 3.375gm Ivpb (Premix)) 50 mls @ 100 mls /hr IVPB Q8H-IV [facility] PRN Reason: Protocol Last Admin: 07/12/17 09:50 Dose: 100 mls/hr Vancomycin HCl 1,000 mg/ (Dextrose) 250 mls @ 166.667 mls/hr IVPB BID [facility] PRN Reason: Protocol Last Admin: 07/12/17 10:29 Dose: 166.667 mls/hr Sodium Chloride (Normal Saline -) 1,000 mls @ 75 mls/hr IV ASDIR [facility] Last Admin: 07/12/17 10:27 Dose: 75 mls/hr Insulin Aspart (Novolog Vial Sliding Scale -) 1 vial SQ ACHS [facility] PRN Reason: Protocol Last Admin: 07/12/17 12:04 Dose: Not Given Insulin Detemir (Levemir Vial) 15 units SQ AM [facility] Last Admin: 07/12/17 06:19 Dose: Not Given Lidocaine (Lidoderm Patch -) 1 patch TP HS [facility] Last Admin: 07/11/17 23:13 Dose: 1 patch Lisinopril (Prinivil) 30 mg PO DAILY [facility] Last Admin: 07/12/17 09:49 Dose: 30 mg Lorazepam (Ativan Injection -) 1 mg IVPUSH Q12H PRN PRN Reason: ANXIETY Metoclopramide HCl (Reglan Injection -) 10 mg IVPB Q8H PRN PRN Reason: NAUSEA AND/OR VOMITING Miscellaneous (Lidoderm Patch Removal) 1 each MC DAILY [facility] Last Admin: 07/12/17 09:49 Dose: 1 each Morphine Sulfate (Morphine Sulfate) 2 mg IVPUSH Q4H PRN PRN Reason: PAIN Last Admin: 07/12/17 10:27 Dose: 2 mg Multi-Ingredient Ointment (Zinc Oxide) 1 applic TP BID [facility] Last Admin: 07/12/17 09:49 Dose: Not Given Oxycodone HCl (Roxicodone -) 10 mg PO Q4H PRN PRN Reason: PAIN Last Admin: 07/11/17 23:15 Dose: 10 mg Ranitidine HCl (Zantac -) 150 mg PO DAILY [facility] Last Admin: 07/12/17 09:49 Dose: Not Given - Objective Vital Signs: Vital Signs Temperature 98.6 F 07/12/17 09:00 Pulse Rate 101 H 07/12/17 09:00 Respiratory Rate 18 07/12/17 09:00 Blood Pressure 126/68 07/12/17 09:00 O2 Sat by Pulse Oximetry (%) 98 07/12/17 09:00 Constitutional: Yes: No Distress, Calm Cardiovascular: Yes: Regular Rate and Rhythm Respiratory: Yes: Regular, CTA Bilaterally Gastrointestinal: Yes: Normal Bowel Sounds, Soft Musculoskeletal: Yes: Other Extremities: Yes: Other Neurological: Yes: Alert, Oriented Psychiatric: Yes: Alert, Oriented Labs: CBC, BMP 07/11/17 06:00 07/11/17 06:00 INR, PTT INR 1.09 (0.82-1.09) 07/05/17 06:00 Assessment/Plan Problem List - Problems (1) Sepsis Code(s): A41.9 - SEPSIS, UNSPECIFIED ORGANISM (2) Abscess and cellulitis Code(s): L03.90 - CELLULITIS, UNSPECIFIED L02.91 - CUTANEOUS ABSCESS, UNSPECIFIED (3) Cellulitis and abscess of left leg Code(s): L03.116 - CELLULITIS OF LEFT LOWER LIMB L02.416 - CUTANEOUS ABSCESS OF LEFT LOWER LIMB (4) Intractable vomiting with nausea Code(s): R11.2 - NAUSEA WITH VOMITING, UNSPECIFIED Qualifiers: Vomiting type: unspecified Qualified Code(s): R11.2 - Nausea with vomiting, unspecified; R11.2 - Nausea with vomiting, unspecified (5) Noncompliance with diabetes treatment Code(s): Z91.19 - PATIENT'S NONCOMPLIANCE W OTH MEDICAL TREATMENT AND REGIMEN (6) Diabetic ulcer of lower extremity Code(s): E11.622 - TYPE 2 DIABETES MELLITUS WITH OTHER SKIN ULCER L97.909 - NON-PRS CHRONIC ULC UNSP PRT OF UNSP LOW LEG W UNSP SEVERITY lactic acidosis leukocytosis uti wound infection intramuscular abscess in the thigh plan surgery today continue abx will keep a watch on cx rest as per primary follow von trough
--- NOTE | 2017-07-12 12:35 | OP ---
Operative Note - Note: Operative Date: 07/12/17 Pre-Operative Diagnosis: left post thigh intramuscular abscess on CT Operation: Incision and drainage of left posterior thigh intramuscular abscess Findings: intramuscular abscess Cx taken Post-Operative Diagnosis: Same as Pre-op Surgeon: Costa Jennings Anesthesia: General Estimated Blood Loss (mls): 50 Operative Report Dictated: Yes
--- NOTE | 2017-07-12 12:38 | EKG ---
Test Reason : Blood Pressure : / mmHG Vent. Rate : 105 BPM Atrial Rate : 105 BPM P-R Int : 144 ms QRS Dur : 082 ms QT Int : 350 ms P-R-T Axes : 043 -01 031 degrees QTc Int : 462 ms SINUS TACHYCARDIA WITH OCCASIONAL PREMATURE VENTRICULAR COMPLEXES OTHERWISE NORMAL ECG WHEN COMPARED WITH ECG OF 17-JUN-2017 00:12, PREMATURE VENTRICULAR COMPLEXES ARE NOW PRESENT Confirmed by TORSTEN JENKINS, BESS ([id number]) on 07/12/2017 12:38:06 PM Referred By: [facility] Confirmed By:BESS SARMIENTO MD
[2017-07-12] MEDS: HYDROmorphone HCL CARPU-JECT 2 MG/1 ML DISP.SYRIN IVPUSH PRN ×3 (12:40→13:45)
[2017-07-12] MEDS ORDERED: HYDROmorphone HCL CARPU-JECT 2 MG/1 ML DISP.SYRIN ONE ×2 (12:44→13:43)
[2017-07-12] MEDS: MIDAZOLAM HCL 2 MG/2 ML SINGLE DOSE VIAL ONE ×2 (13:05→13:15)
[2017-07-12] MEDS ORDERED: DOCUSATE SODIUM 100 MG CAPSULE (FP) PO PRN (13:18)
[2017-07-12] MEDS ORDERED: LORazepam 2 MG/ML SDV VIAL IVPUSH PRN (13:18)
[2017-07-12] MEDS ORDERED: METOCLOPRAMIDE HCL INJECTION 10 MG/2 ML VIAL IVPB PRN (13:18)
[2017-07-12] MEDS ORDERED: HYDROmorphone HCL CARPU-JECT 2 MG/1 ML DISP.SYRIN IVPUSH PRN (13:19)
[2017-07-12] MEDS: SODIUM CHLORIDE 1,000 ML IV SCH ×2 (13:52→22:07)
--- NOTE | 2017-07-12 14:12 | OP ---
DATE OF OPERATION: 07/12/2017 PREOPERATIVE DIAGNOSIS: Left posterior thigh intramuscular abscess on CT scan. POSTOPERATIVE DIAGNOSIS: Left posterior thigh intramuscular abscess on CT scan. PROCEDURE: Incision and drainage of left posterior thigh intramuscular abscess. FINDINGS: Intramuscular abscess pus drained. All the pus was cultured and sent to Pathology. BLOOD LOSS: 50 mL. SURGEON: Costa Bonner MD ANESTHESIA: General. INDICATIONS: The patient is a 47-year-old male who comes in with uncontrolled sugars and found to have cellulitis of his left lower extremity. After being in the hospital for 7 days on antibiotics, he had a CT scan done that showed that he has a left posterior thigh intramuscular abscess that is also surrounding his entire sciatic nerve. He has an induration of the left posterior thigh that needs to be drained. Patient was consented for the procedure understanding all risks, benefits, and alternatives and was then taken to the operating room. PROCEDURE IN DETAIL: Once in the operating suite, he was placed on the operating table in the supine manner, and general anesthesia was administered to the patient. We then positioned the patient [id number]. We then went ahead and prepped and draped the left lower extremity in a sterile surgical manner. We then went ahead and, using a 15 blade, made a 7-cm incision along the area of induration. Bovie electrocautery was used to control hemostasis, and we were able to get down through the subcutaneous tissue and get down to the fascia. Once we got down to muscle, we were able to open the muscle, and copious amounts of pus came out. The pus was cultured. We then went ahead and using digital manipulation we were able to break all the loculations up in the area. We then used pulse lavage irrigation using vancomycin and we were able to irrigate the area copiously. Bovie electrocautery was used to control hemostasis. We then used 2-inch Iodoform packing and packed the area copiously. Wet 4x4s, dry 4x4s, ABD pads, and Kerlix were placed. We looked at the area of the left BK stump and took the VAC dressing off, and the area looked nice and clean with good granulation, and there was no areas of pus, and that was redressed with saline moist dressing. Thereafter, patient was extubated and transferred to the PACU in stable condition. Total blood loss 50 mL. COSTA BONNER DO [id number]
[2017-07-12] MEDS ORDERED: PT OWN MED DRAWER 7, Y5N ONE ×2 (15:23→21:30)
[2017-07-12] MEDS ORDERED: MIDAZOLAM HCL 2 MG/2 ML SINGLE DOSE VIAL IVPUSH ONE (17:36)
[2017-07-12] MEDS ORDERED: HYDROmorphone HCL CARPU-JECT 1 MG/1 ML DISP.SYRIN IVPB ONE (22:00)
[2017-07-12] MEDS: LIDOCAINE 5% TOPICAL PATCH TP SCH (22:11)
[2017-07-12] MEDS: oxyCODONE HCL 5 MG TABLET PO PRN (23:29)
[2017-07-12] MEDS: ACETAMINOPHEN 325 MG TABLET (FP) PO PRN (23:29)
[2017-07-13] MEDS: PIPERACILLIN/TAZOB 3.375 GM 50 ML IVPB SCH ×3 (01:38→17:03)
[2017-07-13] MEDS: oxyCODONE HCL 5 MG TABLET PO PRN ×5 (05:26→21:23)
[2017-07-13] MEDS: ACETAMINOPHEN 325 MG TABLET (FP) PO PRN ×5 (05:27→21:24)
[2017-07-13] MEDS: GABAPENTIN 300 MG CAPSULE (FP) PO SCH ×3 (05:27→21:25)
[2017-07-13] MEDS: INSULIN SLIDING SCALE (NOVOLOG) 1 VIAL SQ SCH ×4 (06:37→23:23)
[2017-07-13] MEDS: INSULIN DETEMIR 100 UNITS/ML MDV SQ SCH (06:39)
[2017-07-13] MEDS ORDERED: PT OWN MED DRAWER 7, Y5N ONE ×2 (06:49→21:20)
[2017-07-13 09:28] LABS: BASOPHIL 0.5 % (0-2.0); EOSINOPHIL 2.4 % (0-4.5); MCH 23.6 pg (25.7-33.7); MCHC 31.3 g/dl (32.0-35.9); MEAN CELL VOLUME 75.3 fl (80-96); MEAN PLT VOLUME 6.6 fl (7.5-11.1); NEUTROPHILS 82.3 % (42.8-82.8); PLATELET COUNT 638 K/MM3 (134-434); RDW 16.1 % (11.9-15.9); WHITE BLOOD COUNT 12.7 K/mm3 (4.0-10.0)
[2017-07-13] MEDS: RANITIDINE HCL 150 MG TABLET (FP) PO SCH (09:51)
[2017-07-13] MEDS: VANCOMYCIN 1,000 MG in DEXTROSE 5%-WATER - 250 ML IVPB SCH ×2 (09:52→23:05)
[2017-07-13] MEDS: LISINOPRIL 20 MG TABLET (FP) PO SCH (09:52)
[2017-07-13] MEDS: FE POLYSAC/CYANOCOBAL/FA COMBO CAPSULE PO SCH (09:53)
[2017-07-13] MEDS: LIDOCAINE PATCH REMOVAL MC SCH ×2 (09:53→23:10)
[2017-07-13] MEDS: AMINO ACIDS/PROTEIN HYDROLYS 30 ML LIQUID.PKT PO SCH ×2 (09:54→17:03)
[2017-07-13 09:55] LABS: ALBUMIN 1.3 g/dl (3.4-5.0); ALK PHOS 516 U/L (45-117); ANION GAP 8 (8-16); BILIRUBIN,TOTAL 0.8 mg/dL (0.2-1.0); CALCIUM 7.6 mg/dL (8.5-10.1); CO2 22 mmol/L (21-32); CREATININE 0.9 mg/dL (0.7-1.3); GLUCOSE,RANDOM 271 mg/dL (74-106); MAGNESIUM 1.8 mg/dL (1.8-2.4); SGOT/AST 18 U/L (15-37); SGPT/ALT 12 U/L (12-78); TOT PROT 5.9 g/dl (6.4-8.2)
[2017-07-13] MEDS: ZINC OXIDE 20% TOPICAL OINTMENT 30 GM TUBE TP SCH ×2 (10:12→23:06)
--- NOTE | 2017-07-13 10:14 | HOSP ---
Subjective - Review of Symptoms Events since last encounter: Hospitalist Encounter Notified by primary RN, that the patient was threatening to leave AMA Arrived to bedside, patient is alert, awake and oriented, screaming and yelling in a loud tone. Patient appears very agitated. Patient reports that since his debridement surgery he has not been adequately medicated by the nursing staff. Attempted to discuss his plan of care, as well as provide reassurance that his pain will be managed. Patient appeared reluctant at first, but allowed me to discuss his plan of care regarding his pain medication. Ordered Dilaudid IV x1 stat. Will continue to monitor Musculoskeletal: Yes: Extremity Pain Physical Examination Vital Signs: Vital Signs Temperature 98.2 F 07/13/17 07:56 Pulse Rate 96 H 07/13/17 07:56 Respiratory Rate 18 07/13/17 07:56 Blood Pressure 111/59 07/13/17 07:56 O2 Sat by Pulse Oximetry (%) 99 07/12/17 15:59 Constitutional: Yes: Anxious, Severe Distress, Obese Eyes: Yes: WNL, PERRL HENT: Yes: WNL, Atraumatic, Normocephalic Neck: Yes: WNL, Supple, Trachea Midline Cardiovascular: Yes: Tachycardia, S1, S2 Respiratory: Yes: WNL, Regular, CTA Bilaterally Gastrointestinal: Yes: Normal Bowel Sounds, Abdomen, Obese Wound/Incision: Yes: Dressing Dry and Intact Neurological: Yes: WNL, Alert, Oriented, Cran Nerves II-XII Intact Psychiatric: Yes: Alert, Oriented, Agitated Labs: CBC, BMP 07/13/17 08:50 07/13/17 08:50
--- NOTE | 2017-07-13 11:16 | PN ---
Progress Note (short form) - Note Progress Note: Vascular Surgery Pt seen and examined. Dressing removed. All wounds clean, pink. No signs of pus. Pt feels better. Will place VAC bridging both wounds. Costa Jennings DO
[2017-07-13] MEDS ORDERED: INSULIN (NOVOLOG) ASPART 100 UNITS/ML 10ML VIAL ONE (11:17)
--- NOTE | 2017-07-13 12:28 | PN ---
Progress Note (short form) - Note Progress Note: Subjective: The patient was seen and examined at the bedside, he appears comfortable today I&D yesterday, for vac placement Current Medications Generic Name Dose Route Start Last Admin Trade Name Freq PRN Reason Stop Dose Admin Acetaminophen 650 mg 07/12/17 13:18 07/13/17 09:50 Tylenol - PO 650 mg Q4H PRN Administration FEVER OR PAIN Amino Acids 30 ml 07/12/17 17:30 07/13/17 09:54 Prosource No Carb Liquid Pkt PO 30 ml BID@0800,1730 [facility] Administration B12/Folic Ac/Intrin Fact/Iron/Vit C 1 each 07/13/17 10:00 07/13/17 09:53 Niferex-150 Forte - PO 1 each DAILY [facility] Administration Diphenhydramine HCl 25 mg 07/12/17 13:18 Benadryl Injection - IVPB Q8H PRN NAUSEA Docusate Sodium 100 mg 07/12/17 13:18 Colace - PO Q8H PRN CONSTIPATION Gabapentin 300 mg 07/12/17 14:00 07/13/17 05:27 Neurontin - PO 300 mg TID [facility] Administration Sodium Chloride 1,000 mls @ 75 mls/hr 07/12/17 13:18 07/12/17 22:07 Normal Saline - IV 75 mls/hr ASDIR [facility] Administration Vancomycin HCl 1,000 mg/ 250 mls @ 166.667 mls/hr 07/12/17 22:00 07/13/17 09:52 Dextrose IVPB 166.667 mls/hr BID [facility] Administration Protocol Piperacillin/Tazobactam/Dextrose 50 mls @ 100 mls/hr 07/12/17 18:00 07/13/17 09 :53 Zosyn 3.375gm Ivpb (Premix) IVPB 100 mls/hr Q8H-IV [facility] Administration Protocol Insulin Aspart 1 vial 07/12/17 16:30 07/13/17 11:31 Novolog Vial Sliding Scale - SQ 4 units ACHS [facility] Administration Protocol Insulin Detemir 15 units 07/13/17 07:00 07/13/17 06:39 Levemir Vial SQ 15 unit AM [facility] Administration Lidocaine 1 patch 07/12/17 22:00 07/12/17 22:11 Lidoderm Patch - TP 1 patch HS [facility] Administration Lisinopril 30 mg 07/13/17 10:00 07/13/17 09:52 Prinivil PO 30 mg DAILY [facility] Administration Lorazepam 1 mg 07/12/17 13:18 Ativan Injection - IVPUSH Q12H PRN ANXIETY Metoclopramide HCl 10 mg 07/12/17 13:18 Reglan Injection - IVPB Q8H PRN NAUSEA AND/OR VOMITING Miscellaneous 1 each 07/13/17 10:00 07/13/17 09:53 Lidoderm Patch Removal MC 1 each DAILY [facility] Administration Miscellaneous 1 each 07/12/17 22:00 07/12/17 22:13 Lidoderm Patch Removal MC Not Given DAILY@2200 [facility] Morphine Sulfate 2 mg 07/12/17 13:18 07/12/17 16:46 Morphine Sulfate IVPUSH 2 mg Q4H PRN Administration PAIN Multi-Ingredient Ointment 1 applic 07/12/17 22:00 07/13/17 10:12 Zinc Oxide TP Not Given BID [facility] Oxycodone HCl 10 mg 07/12/17 13:18 07/13/17 09:51 Roxicodone - PO 10 mg Q4H PRN Administration PAIN Ranitidine HCl 150 mg 07/13/17 10:00 07/13/17 09:51 Zantac - PO 150 mg DAILY [facility] Administration Objective: Vital Signs Period Temp Pulse Resp BP Sys/Monet Pulse Ox Last 24 Hr 98.1 F-99 F 92-108 16-22 95-144/58-85 97-100 Physical Exam: Left BKA, dressing on lower extremity, c/d/i CBCD WBC 12.7 K/mm3 (4.0-10.0) H 07/13/17 08:50 RBC 3.12 M/mm3 (4.00-5.60) L 07/13/17 08:50 Hgb 7.4 GM/dL (11.7-16.9) L 07/13/17 08:50 Hct 23.5 % (35.4-49) L 07/13/17 08:50 MCV 75.3 fl (80-96) L 07/13/17 08:50 MCHC 31.3 g/dl (32.0-35.9) L 07/13/17 08:50 RDW 16.1 % (11.9-15.9) H 07/13/17 08:50 Plt Count 638 K/MM3 (134-434) H 07/13/17 08:50 MPV 6.6 fl (7.5-11.1) L 07/13/17 08:50 CMP Sodium 136 mmol/L (136-145) 07/13/17 08:50 Potassium 4.1 mmol/L (3.5-5.1) 07/13/17 08:50 Chloride 106 mmol/L (98-107) 07/13/17 08:50 Carbon Dioxide 22 mmol/L (21-32) 07/13/17 08:50 Anion Gap 8 (8-16) 07/13/17 08:50 BUN 9 mg/dL (7-18) 07/13/17 08:50 Creatinine 0.9 mg/dL (0.7-1.3) 07/13/17 08:50 Creat Clearance w eGFR > 60 (>60) 07/13/17 08:50 Random Glucose 271 mg/dL (74-106) H D 07/13/17 08:50 Calcium 7.6 mg/dL (8.5-10.1) L 07/13/17 08:50 Total Bilirubin 0.8 mg/dL (0.2-1.0) 07/13/17 08:50 AST 18 U/L (15-37) 07/13/17 08:50 ALT 12 U/L (12-78) 07/13/17 08:50 Alkaline Phosphatase 516 U/L (45-117) H D 07/13/17 08:50 Total Protein 5.9 g/dl (6.4-8.2) L 07/13/17 08:50 Albumin 1.3 g/dl (3.4-5.0) L 07/13/17 08:50 CARDIAC ENZYMES Creatine Kinase 69 IU/L (39-308) 06/17/17 12:52 Troponin I < 0.02 ng/ml (0.00-0.05) 06/17/17 00:05 Microbiology 07/09/17 20:00 Blood - Peripheral Venous Blood Culture - Preliminary NO GROWTH OBTAINED AFTER 72 HOURS, INCUBATION TO CONTINUE FOR 2 DAYS. 07/09/17 20:00 Blood - Peripheral Venous Blood Culture - Preliminary NO GROWTH OBTAINED AFTER 72 HOURS, INCUBATION TO CONTINUE FOR 2 DAYS. 07/02/17 19:20 Blood - Peripheral Venous Blood Culture - Final NO GROWTH AFTER 5 DAYS INCUBATION 07/02/17 19:10 Blood - Peripheral Venous Blood Culture - Final NO GROWTH AFTER 5 DAYS INCUBATION 07/05/17 10:00 Leg - Left Lower Gram Stain - Final 07/05/17 10:00 Leg - Left Lower Wound Culture - Final Yeast Like Organism 07/02/17 20:10 Urine - Urine Clean Catch Urine Culture - Final NO GROWTH OBTAINED 06/24/17 16:00 Blood - Peripheral Venous Blood Culture - Final NO GROWTH AFTER 5 DAYS INCUBATION 06/24/17 16:00 Blood - Peripheral Venous Blood Culture - Final NO GROWTH AFTER 5 DAYS INCUBATION 06/23/17 22:00 Nares - Mrsa Screen - Left MRSA Screen - Final NO MRSA ISOLATED 06/23/17 22:00 Nares - Right Nares MRSA Screen - Final NO MRSA ISOLATED 06/17/17 00:30 Blood - Peripheral Venous Blood Culture - Final NO GROWTH AFTER 5 DAYS INCUBATION 06/17/17 00:05 Blood - Peripheral Venous Blood Culture - Final Lactobacillus Species 06/17/17 00:41 Stump Gram Stain - Final 06/17/17 00:41 Stump Wound Culture - Final Staphylococcus Aureus Streptococcus Viridans Yeast Like Organism 06/17/17 06:30 Urine - Urine Clean Catch Urine Culture - Final Staphylococcus Aureus Assessment: This is a 47 year old male with PMHx of DM, multiple soft tissue infections, hx of MRSA, s/p left BKA who presented to the ED with worsening posterior left leg pain x1 week. Plan: 1) ID: Sepsis 2/2 diabetic wound - WBC trending down - Continue Vancomycin - Continue Zosyn - Apppreciate ID consult Left leg intramuscular abscess - S/p debridement on 07/05/17, and I&D on 07/12 - Vac wound to be placed per surgery 2) Endocrine: IDDM - Levemir 15u sq AM - BGM ACHS - ISS ACHS 3) Hematology: Anemia - Continue to monitor H/H - Transfuse if Hgb <7 3) F/E/N: - Diabetic/sodium controlled diet - Monitor electrolytes - Hypophosphatemia: resolved - Severe hypoalbuminemia 4) Prophylaxis: - Heparin 5,000u sq tid - PT 5) Dispo: - Requires continued inpatient care CODE STATUS: FULL CODE Visit type - Emergency Visit Emergency Visit: Yes ED Registration Date: 06/17/17 Care time: The patient presented to the Emergency Department on the above date and was hospitalized for further evaluation of their emergent condition. - New Patient This patient is new to me today: No - Critical Care Critical Care patient: No
[2017-07-13] MEDS: SODIUM CHLORIDE 1,000 ML IV SCH ×2 (13:42→13:49)
--- NOTE | 2017-07-13 14:30 | PN ---
Progress Note, Physician History of Present Illness: patient post op now patient doing well still with some pain wound vac in place draining - Current Medication List Current Medications: Active Medications Acetaminophen (Tylenol -) 650 mg PO Q4H PRN PRN Reason: FEVER OR PAIN Last Admin: 07/13/17 13:40 Dose: 650 mg Amino Acids (Prosource No Carb Liquid Pkt) 30 ml PO BID@0800,1730 [facility] Last Admin: 07/13/17 09:54 Dose: 30 ml B12/Folic Ac/Intrin Fact/Iron/Vit C (Niferex-150 Forte -) 1 each PO DAILY [facility] Last Admin: 07/13/17 09:53 Dose: 1 each Diphenhydramine HCl (Benadryl Injection -) 25 mg IVPB Q8H PRN PRN Reason: NAUSEA Docusate Sodium (Colace -) 100 mg PO Q8H PRN PRN Reason: CONSTIPATION Gabapentin (Neurontin -) 300 mg PO TID [facility] Last Admin: 07/13/17 13:40 Dose: 300 mg Sodium Chloride (Normal Saline -) 1,000 mls @ 75 mls/hr IV ASDIR [facility] Last Admin: 07/13/17 13:49 Dose: Not Given Vancomycin HCl 1,000 mg/ (Dextrose) 250 mls @ 166.667 mls/hr IVPB BID [facility] PRN Reason: Protocol Last Admin: 07/13/17 09:52 Dose: 166.667 mls/hr Piperacillin/Tazobactam/Dextrose (Zosyn 3.375gm Ivpb (Premix)) 50 mls @ 100 mls /hr IVPB Q8H-IV [facility] PRN Reason: Protocol Last Admin: 07/13/17 09:53 Dose: 100 mls/hr Insulin Aspart (Novolog Vial Sliding Scale -) 1 vial SQ ACHS [facility] PRN Reason: Protocol Last Admin: 07/13/17 11:31 Dose: 4 units Insulin Detemir (Levemir Vial) 15 units SQ AM [facility] Last Admin: 07/13/17 06:39 Dose: 15 unit Lidocaine (Lidoderm Patch -) 1 patch TP HS [facility] Last Admin: 07/12/17 22:11 Dose: 1 patch Lisinopril (Prinivil) 30 mg PO DAILY [facility] Last Admin: 07/13/17 09:52 Dose: 30 mg Lorazepam (Ativan Injection -) 1 mg IVPUSH Q12H PRN PRN Reason: ANXIETY Metoclopramide HCl (Reglan Injection -) 10 mg IVPB Q8H PRN PRN Reason: NAUSEA AND/OR VOMITING Miscellaneous (Lidoderm Patch Removal) 1 each MC DAILY [facility] Last Admin: 07/13/17 09:53 Dose: 1 each Miscellaneous (Lidoderm Patch Removal) 1 each MC DAILY@2200 [facility] Last Admin: 07/12/17 22:13 Dose: Not Given Morphine Sulfate (Morphine Sulfate) 2 mg IVPUSH Q4H PRN PRN Reason: PAIN Last Admin: 07/12/17 16:46 Dose: 2 mg Multi-Ingredient Ointment (Zinc Oxide) 1 applic TP BID [facility] Last Admin: 07/13/17 10:12 Dose: Not Given Oxycodone HCl (Roxicodone -) 10 mg PO Q4H PRN PRN Reason: PAIN Last Admin: 07/13/17 13:39 Dose: 10 mg Ranitidine HCl (Zantac -) 150 mg PO DAILY [facility] Last Admin: 07/13/17 09:51 Dose: 150 mg - Objective Vital Signs: Vital Signs Temperature 98.5 F 07/13/17 09:00 Pulse Rate 99 H 07/13/17 09:00 Respiratory Rate 18 07/13/17 09:00 Blood Pressure 105/65 07/13/17 09:00 O2 Sat by Pulse Oximetry (%) 97 07/13/17 09:00 Constitutional: Yes: No Distress, Calm Cardiovascular: Yes: Regular Rate and Rhythm Respiratory: Yes: Regular, CTA Bilaterally Gastrointestinal: Yes: Normal Bowel Sounds, Soft Musculoskeletal: Yes: Other Extremities: Yes: Other Wound/Incision: Yes: Other (wound vac in place) Neurological: Yes: Alert, Oriented Psychiatric: Yes: Alert, Oriented Labs: CBC, BMP 07/13/17 08:50 07/13/17 08:50 INR, PTT INR 1.09 (0.82-1.09) 07/05/17 06:00 Assessment/Plan Problem List - Problems (1) Sepsis Code(s): A41.9 - SEPSIS, UNSPECIFIED ORGANISM (2) Abscess and cellulitis Code(s): L03.90 - CELLULITIS, UNSPECIFIED L02.91 - CUTANEOUS ABSCESS, UNSPECIFIED (3) Cellulitis and abscess of left leg Code(s): L03.116 - CELLULITIS OF LEFT LOWER LIMB L02.416 - CUTANEOUS ABSCESS OF LEFT LOWER LIMB (4) Intractable vomiting with nausea Code(s): R11.2 - NAUSEA WITH VOMITING, UNSPECIFIED Qualifiers: Vomiting type: unspecified Qualified Code(s): R11.2 - Nausea with vomiting, unspecified; R11.2 - Nausea with vomiting, unspecified (5) Noncompliance with diabetes treatment Code(s): Z91.19 - PATIENT'S NONCOMPLIANCE W OTH MEDICAL TREATMENT AND REGIMEN (6) Diabetic ulcer of lower extremity Code(s): E11.622 - TYPE 2 DIABETES MELLITUS WITH OTHER SKIN ULCER L97.909 - NON-PRS CHRONIC ULC UNSP PRT OF UNSP LOW LEG W UNSP SEVERITY lactic acidosis leukocytosis uti wound infection intramuscular abscess in the thigh plan surgery today continue abx await for wound cx rest as per primary follow bakario trough
[2017-07-13] MEDS: LIDOCAINE 5% TOPICAL PATCH TP SCH (23:06)
[2017-07-14] MEDS ORDERED: KETOROLAC TROMETHAMINE 30 MG/1 ML VIAL IVPUSH ONE (00:43)
[2017-07-14] MEDS: PIPERACILLIN/TAZOB 3.375 GM 50 ML IVPB SCH ×3 (01:53→21:32)
[2017-07-14] MEDS: ACETAMINOPHEN 325 MG TABLET (FP) PO PRN ×5 (01:54→18:23)
[2017-07-14] MEDS: oxyCODONE HCL 5 MG TABLET PO PRN ×5 (01:54→18:23)
[2017-07-14] MEDS: GABAPENTIN 300 MG CAPSULE (FP) PO SCH ×2 (06:25→21:34)
[2017-07-14] MEDS: INSULIN SLIDING SCALE (NOVOLOG) 1 VIAL SQ SCH ×4 (06:36→21:46)
[2017-07-14] MEDS: INSULIN DETEMIR 100 UNITS/ML MDV SQ SCH (06:36)
[2017-07-14] MEDS: AMINO ACIDS/PROTEIN HYDROLYS 30 ML LIQUID.PKT PO SCH ×2 (07:56→17:13)
[2017-07-14 08:02] LABS: BASOPHIL 0.5 % (0-2.0); EOSINOPHIL 3.5 % (0-4.5); MCH 23.3 pg (25.7-33.7); MCHC 31.5 g/dl (32.0-35.9); MEAN PLT VOLUME 6.6 fl (7.5-11.1); NEUTROPHILS 78.7 % (42.8-82.8); PLATELET COUNT 660 K/MM3 (134-434); RDW 16.2 % (11.9-15.9); WHITE BLOOD COUNT 12.5 K/mm3 (4.0-10.0)
[2017-07-14] MEDS: LIDOCAINE PATCH REMOVAL MC SCH ×2 (10:28→21:34)
[2017-07-14] MEDS: ZINC OXIDE 20% TOPICAL OINTMENT 30 GM TUBE TP SCH ×2 (10:29→21:43)
[2017-07-14] MEDS: LISINOPRIL 20 MG TABLET (FP) PO SCH (10:29)
[2017-07-14] MEDS: RANITIDINE HCL 150 MG TABLET (FP) PO SCH ×2 (10:29→10:39)
[2017-07-14] MEDS: VANCOMYCIN 1,000 MG in DEXTROSE 5%-WATER - 250 ML IVPB SCH ×2 (10:29→22:19)
[2017-07-14] MEDS: FE POLYSAC/CYANOCOBAL/FA COMBO CAPSULE PO SCH (10:31)
--- NOTE | 2017-07-14 10:35 | PN ---
Progress Note (short form) - Note Progress Note: Subjective: The patient was seen and examined at the bedside, Current Medications Generic Name Dose Route Start Last Admin Trade Name Freq PRN Reason Stop Dose Admin Acetaminophen 650 mg 07/12/17 13:18 07/14/17 10:31 Tylenol - PO 650 mg Q4H PRN Administration FEVER OR PAIN Amino Acids 30 ml 07/12/17 17:30 07/14/17 07:56 Prosource No Carb Liquid Pkt PO Not Given BID@0800,1730 [facility] B12/Folic Ac/Intrin Fact/Iron/Vit C 1 each 07/13/17 10:00 07/14/17 10:31 Niferex-150 Forte - PO 1 each DAILY [facility] Administration Diphenhydramine HCl 25 mg 07/12/17 13:18 Benadryl Injection - IVPB Q8H PRN NAUSEA Docusate Sodium 100 mg 07/12/17 13:18 Colace - PO Q8H PRN CONSTIPATION Gabapentin 300 mg 07/12/17 14:00 07/14/17 06:25 Neurontin - PO 300 mg TID [facility] Administration Sodium Chloride 1,000 mls @ 75 mls/hr 07/12/17 13:18 07/13/17 13:49 Normal Saline - IV Not Given ASDIR [facility] Vancomycin HCl 1,000 mg/ 250 mls @ 166.667 mls/hr 07/12/17 22:00 07/14/17 10:29 Dextrose IVPB 166.667 mls/hr BID [facility] Administration Protocol Piperacillin/Tazobactam/Dextrose 50 mls @ 100 mls/hr 07/12/17 18:00 07/14/17 10 :29 Zosyn 3.375gm Ivpb (Premix) IVPB 100 mls/hr Q8H-IV [facility] Administration Protocol Insulin Aspart 1 vial 07/12/17 16:30 07/14/17 06:36 Novolog Vial Sliding Scale - SQ Not Given ACHS [facility] Protocol Insulin Detemir 15 units 07/13/17 07:00 07/14/17 06:36 Levemir Vial SQ 15 unit AM [facility] Administration Lidocaine 1 patch 07/12/17 22:00 07/13/17 23:06 Lidoderm Patch - TP 1 patch HS [facility] Administration Lisinopril 30 mg 07/13/17 10:00 07/14/17 10:29 Prinivil PO 30 mg DAILY [facility] Administration Lorazepam 1 mg 07/12/17 13:18 Ativan Injection - IVPUSH Q12H PRN ANXIETY Metoclopramide HCl 10 mg 07/12/17 13:18 Reglan Injection - IVPB Q8H PRN NAUSEA AND/OR VOMITING Miscellaneous 1 each 07/13/17 10:00 07/14/17 10:28 Lidoderm Patch Removal MC 1 each DAILY [facility] Administration Miscellaneous 1 each 07/12/17 22:00 07/13/17 23:10 Lidoderm Patch Removal MC Not Given DAILY@2200 [facility] Morphine Sulfate 2 mg 07/12/17 13:18 07/12/17 16:46 Morphine Sulfate IVPUSH 2 mg Q4H PRN Administration PAIN Multi-Ingredient Ointment 1 applic 07/12/17 22:00 07/14/17 10:29 Zinc Oxide TP 1 applic BID [facility] Administration Oxycodone HCl 10 mg 07/12/17 13:18 07/14/17 10:31 Roxicodone - PO 10 mg Q4H PRN Administration PAIN Ranitidine HCl 150 mg 07/13/17 10:00 07/14/17 10:29 Zantac - PO 150 mg DAILY [facility] Administration Objective: Vital Signs Period Temp Pulse Resp BP Sys/Monet Pulse Ox Last 24 Hr 98 F-99.1 F 95-111 18-98 119-143/64-78 96 Physical Exam: CBCD WBC 12.5 K/mm3 (4.0-10.0) H 07/14/17 07:00 RBC 2.89 M/mm3 (4.00-5.60) L 07/14/17 07:00 Hgb 6.7 GM/dL (11.7-16.9) L* 07/14/17 07:00 Hct 21.4 % (35.4-49) L 07/14/17 07:00 MCV 74.0 fl (80-96) L 07/14/17 07:00 MCHC 31.5 g/dl (32.0-35.9) L 07/14/17 07:00 RDW 16.2 % (11.9-15.9) H 07/14/17 07:00 Plt Count 660 K/MM3 (134-434) H 07/14/17 07:00 MPV 6.6 fl (7.5-11.1) L 07/14/17 07:00 CMP Sodium 136 mmol/L (136-145) 07/13/17 08:50 Potassium 4.1 mmol/L (3.5-5.1) 07/13/17 08:50 Chloride 106 mmol/L (98-107) 07/13/17 08:50 Carbon Dioxide 22 mmol/L (21-32) 07/13/17 08:50 Anion Gap 8 (8-16) 07/13/17 08:50 BUN 9 mg/dL (7-18) 07/13/17 08:50 Creatinine 0.9 mg/dL (0.7-1.3) 07/13/17 08:50 Creat Clearance w eGFR > 60 (>60) 07/13/17 08:50 Random Glucose 271 mg/dL (74-106) H D 07/13/17 08:50 Calcium 7.6 mg/dL (8.5-10.1) L 07/13/17 08:50 Total Bilirubin 0.8 mg/dL (0.2-1.0) 07/13/17 08:50 AST 18 U/L (15-37) 07/13/17 08:50 ALT 12 U/L (12-78) 07/13/17 08:50 Alkaline Phosphatase 516 U/L (45-117) H D 07/13/17 08:50 Total Protein 5.9 g/dl (6.4-8.2) L 07/13/17 08:50 Albumin 1.3 g/dl (3.4-5.0) L 07/13/17 08:50 CARDIAC ENZYMES Creatine Kinase 69 IU/L (39-308) 06/17/17 12:52 Troponin I < 0.02 ng/ml (0.00-0.05) 06/17/17 00:05 Microbiology 07/09/17 20:00 Blood - Peripheral Venous Blood Culture - Preliminary NO GROWTH OBTAINED AFTER 96 HOURS, INCUBATION TO CONTINUE FOR 1 DAYS. 07/09/17 20:00 Blood - Peripheral Venous Blood Culture - Preliminary NO GROWTH OBTAINED AFTER 96 HOURS, INCUBATION TO CONTINUE FOR 1 DAYS. 07/12/17 12:30 Abscess Gram Stain - Final 07/12/17 12:30 Abscess Wound Culture - Preliminary NO GROWTH OBTAINED AFTER 24 HOURS INCUBATION, REINCUBATED. 07/02/17 19:20 Blood - Peripheral Venous Blood Culture - Final NO GROWTH AFTER 5 DAYS INCUBATION 07/02/17 19:10 Blood - Peripheral Venous Blood Culture - Final NO GROWTH AFTER 5 DAYS INCUBATION 07/05/17 10:00 Leg - Left Lower Gram Stain - Final 07/05/17 10:00 Leg - Left Lower Wound Culture - Final Yeast Like Organism 07/02/17 20:10 Urine - Urine Clean Catch Urine Culture - Final NO GROWTH OBTAINED 06/24/17 16:00 Blood - Peripheral Venous Blood Culture - Final NO GROWTH AFTER 5 DAYS INCUBATION 06/24/17 16:00 Blood - Peripheral Venous Blood Culture - Final NO GROWTH AFTER 5 DAYS INCUBATION 06/23/17 22:00 Nares - Mrsa Screen - Left MRSA Screen - Final NO MRSA ISOLATED 06/23/17 22:00 Nares - Right Nares MRSA Screen - Final NO MRSA ISOLATED 06/17/17 00:30 Blood - Peripheral Venous Blood Culture - Final NO GROWTH AFTER 5 DAYS INCUBATION 06/17/17 00:05 Blood - Peripheral Venous Blood Culture - Final Lactobacillus Species 06/17/17 00:41 Stump Gram Stain - Final 06/17/17 00:41 Stump Wound Culture - Final Staphylococcus Aureus Streptococcus Viridans Yeast Like Organism 06/17/17 06:30 Urine - Urine Clean Catch Urine Culture - Final Staphylococcus Aureus Assessment: This is a 47 year old male with PMHx of DM, multiple soft tissue infections, hx of MRSA, s/p left BKA who presented to the ED with worsening posterior left leg pain x1 week. Plan: 1) ID: Sepsis 2/2 diabetic wound - S/p debridement on 07/05/17 - WBC trending down - Continue Vancomycin - Continue Zosyn - Pain management - Apppreciate ID consult Left leg intramuscular abscess - S/p I&D of left posterior thigh intramuscular abscess on 07/12 - Wound vac to be placed per surgery 2) Endocrine: IDDM - Levemir 15u sq AM - BGM ACHS - ISS ACHS 3) Hematology: Anemia - Hgb this AM 6.7, patient refusing PRBC transfusion - Repeat CBC this afternoon, patient is agreeable to receive PRBC if afternoon CBC still shows low Hgb 3) F/E/N: - Diabetic/sodium controlled diet - Monitor electrolytes - Severe hypoalbuminemia 4) Prophylaxis: - Heparin 5,000u sq tid - PT 5) Dispo: - Requires continued inpatient care CODE STATUS: FULL CODE
--- NOTE | 2017-07-14 11:54 | CONSULT ---
Consult Consult Specialty:: Pain Management Reason for Consultation:: Left leg pain - History of Present Illness Chief Complaint: Left leg Pain History of Present Illness: 47 yr old male with left leg apin 10/10 s/p VAC and left thigh pain. He has Left BKA with h/o phantom pain. - History Source History Provided By: Patient Limitations to Obtaining History: No Limitations - Past Medical History Cardio/Vascular: Yes: HTN, Hyperlipdemia Gastrointestinal: Yes: GERD Infectious Disease: Yes: MRSA (several years ago) Musculoskeletal: Yes: Other (left thigh pain) Endocrine: Yes: Diabetes Mellitus Dermatology: Yes: Cellulitis (mrsa) - Past Surgical History Past Surgical History: Yes: Amputation (left BKA) - Alcohol/Substance Use Hx Alcohol Use: No - Smoking History Smoking history: Former smoker Have you smoked in the past 12 months: No Aproximately how many cigarettes per day: 0 If you are a former smoker, when did you quit?: 10 years ago - Social History Usual Living Arrangement: With Spouse ADL: Independent History of Recent Travel: No Home Medications - Allergies Allergies/Adverse Reactions: Allergies Allergy/AdvReac Type Severity Reaction Status Date / Time No Known Allergies Allergy Verified 06/16/17 23:22 - Home Medications Home Medications: Ambulatory Orders Collagenase Clostridium Hist. [Santyl] 1 applic TP DAILY #1 oint...g. 05/26/17 Oxycodone HCl/Acetaminophen [Percocet 10-325 mg Tablet] 1 each PO Q6H PRN Family Disease History - Family Disease History Family Disease History: Diabetes: Father Review of Systems - Review of Systems Constitutional: reports: No Symptoms Eyes: reports: No Symptoms HENT: reports: No Symptoms Neck: reports: No Symptoms Cardiovascular: reports: No Symptoms Respiratory: reports: No Symptoms Gastrointestinal: reports: No Symptoms Genitourinary: reports: No Symptoms Musculoskeletal: reports: Other (left thigh pain) Neurological: reports: No Symptoms Pain Intensity: 10 Physical Exam Vital Signs: Vital Signs Temperature 98.1 F 07/14/17 09:00 Pulse Rate 94 H 07/14/17 09:00 Respiratory Rate 20 07/14/17 09:00 Blood Pressure 130/68 07/14/17 09:00 O2 Sat by Pulse Oximetry (%) 96 07/14/17 09:00 Constitutional: Yes: Well Nourished Eyes: Yes: WNL HENT: Yes: WNL Neck: Yes: WNL Gastrointestinal: Yes: WNL Musculoskeletal: Yes: WNL, Other (Left thigh VAC , BKA) Extremities: Yes: WNL, Amputation Edema: No Wound/Incision: Yes: Other (VAC) Neurological: Yes: WNL ...Motor Strength: WNL Labs: CBC, BMP 07/14/17 07:00 07/13/17 08:50 Problem List - Problems (1) Pain in wound Assessment/Plan: Discussed in detail and answered all his questions. continue current care Percocet 5/325 po Q6 PRN MS contin 15 mg PO BID Neurontin 400 mg PO q6 wound care please call me if pain is not controlled well. at [phone] Leiva Code(s): [id number] -
[2017-07-14] MEDS ORDERED: GABAPENTIN 300 MG CAPSULE (FP) PO SCH (11:59)
[2017-07-14] MEDS: morphine SO4 SUSTAINED ACTING 15 MG TABLET.SA PO SCH ×2 (12:10→21:34)
--- NOTE | 2017-07-14 13:32 | PN ---
Progress Note, Physician History of Present Illness: patient post op now still with some pain wound vac in place draining - Current Medication List Current Medications: Active Medications Acetaminophen (Tylenol -) 650 mg PO Q4H PRN PRN Reason: FEVER OR PAIN Last Admin: 07/14/17 10:31 Dose: 650 mg Amino Acids (Prosource No Carb Liquid Pkt) 30 ml PO BID@0800,1730 [facility] Last Admin: 07/14/17 07:56 Dose: Not Given B12/Folic Ac/Intrin Fact/Iron/Vit C (Niferex-150 Forte -) 1 each PO DAILY [facility] Last Admin: 07/14/17 10:31 Dose: 1 each Diphenhydramine HCl (Benadryl Injection -) 25 mg IVPB Q8H PRN PRN Reason: NAUSEA Docusate Sodium (Colace -) 100 mg PO Q8H PRN PRN Reason: CONSTIPATION Gabapentin (Neurontin -) 300 mg PO DAILY [facility] Gabapentin (Neurontin -) 900 mg PO HS [facility] Sodium Chloride (Normal Saline -) 1,000 mls @ 75 mls/hr IV ASDIR [facility] Last Admin: 07/13/17 13:49 Dose: Not Given Vancomycin HCl 1,000 mg/ (Dextrose) 250 mls @ 166.667 mls/hr IVPB BID [facility] PRN Reason: Protocol Last Admin: 07/14/17 10:29 Dose: 166.667 mls/hr Piperacillin/Tazobactam/Dextrose (Zosyn 3.375gm Ivpb (Premix)) 50 mls @ 100 mls /hr IVPB Q8H-IV [facility] PRN Reason: Protocol Last Admin: 07/14/17 10:29 Dose: 100 mls/hr Insulin Aspart (Novolog Vial Sliding Scale -) 1 vial SQ ACHS [facility] PRN Reason: Protocol Last Admin: 07/14/17 11:03 Dose: Not Given Insulin Detemir (Levemir Vial) 15 units SQ AM [facility] Last Admin: 07/14/17 06:36 Dose: 15 unit Lidocaine (Lidoderm Patch -) 1 patch TP HS [facility] Last Admin: 07/13/17 23:06 Dose: 1 patch Lisinopril (Prinivil) 30 mg PO DAILY [facility] Last Admin: 07/14/17 10:29 Dose: 30 mg Lorazepam (Ativan Injection -) 1 mg IVPUSH Q12H PRN PRN Reason: ANXIETY Metoclopramide HCl (Reglan Injection -) 10 mg IVPB Q8H PRN PRN Reason: NAUSEA AND/OR VOMITING Miscellaneous (Lidoderm Patch Removal) 1 each MC DAILY [facility] Last Admin: 07/14/17 10:28 Dose: 1 each Miscellaneous (Lidoderm Patch Removal) 1 each MC DAILY@2200 [facility] Last Admin: 07/13/17 23:10 Dose: Not Given Morphine Sulfate (Morphine Sulfate) 2 mg IVPUSH Q4H PRN PRN Reason: PAIN Last Admin: 07/12/17 16:46 Dose: 2 mg Morphine Sulfate (Ms Contin -) 15 mg PO BID [facility] Last Admin: 07/14/17 12:10 Dose: 15 mg Multi-Ingredient Ointment (Zinc Oxide) 1 applic TP BID [facility] Last Admin: 07/14/17 10:29 Dose: 1 applic Oxycodone HCl (Roxicodone -) 10 mg PO Q4H PRN PRN Reason: PAIN Last Admin: 07/14/17 10:31 Dose: 10 mg Ranitidine HCl (Zantac -) 150 mg PO DAILY [facility] Last Admin: 07/14/17 10:39 Dose: Not Given - Objective Vital Signs: Vital Signs Temperature 98.1 F 07/14/17 09:00 Pulse Rate 94 H 07/14/17 09:00 Respiratory Rate 20 07/14/17 09:00 Blood Pressure 130/68 07/14/17 09:00 O2 Sat by Pulse Oximetry (%) 96 07/14/17 09:00 Constitutional: Yes: Calm, Other Eyes: Yes: Conjunctiva Clear HENT: Yes: Atraumatic Cardiovascular: Yes: Regular Rate and Rhythm Respiratory: Yes: Regular, CTA Bilaterally Gastrointestinal: Yes: Normal Bowel Sounds, Soft Musculoskeletal: Yes: Other Extremities: Yes: Erythema, Other Wound/Incision: Yes: Other (wound vac in place) Neurological: Yes: Alert, Oriented Psychiatric: Yes: Alert Labs: CBC, BMP 07/14/17 07:00 07/13/17 08:50 INR, PTT INR 1.09 (0.82-1.09) 07/05/17 06:00 Assessment/Plan Problem List - Problems (1) Sepsis Code(s): A41.9 - SEPSIS, UNSPECIFIED ORGANISM (2) Abscess and cellulitis Code(s): L03.90 - CELLULITIS, UNSPECIFIED L02.91 - CUTANEOUS ABSCESS, UNSPECIFIED (3) Cellulitis and abscess of left leg Code(s): L03.116 - CELLULITIS OF LEFT LOWER LIMB L02.416 - CUTANEOUS ABSCESS OF LEFT LOWER LIMB (4) Intractable vomiting with nausea Code(s): R11.2 - NAUSEA WITH VOMITING, UNSPECIFIED Qualifiers: Vomiting type: unspecified Qualified Code(s): R11.2 - Nausea with vomiting, unspecified; R11.2 - Nausea with vomiting, unspecified (5) Noncompliance with diabetes treatment Code(s): Z91.19 - PATIENT'S NONCOMPLIANCE W OTH MEDICAL TREATMENT AND REGIMEN (6) Diabetic ulcer of lower extremity Code(s): E11.622 - TYPE 2 DIABETES MELLITUS WITH OTHER SKIN ULCER L97.909 - NON-PRS CHRONIC ULC UNSP PRT OF UNSP LOW LEG W UNSP SEVERITY lactic acidosis leukocytosis uti wound infection intramuscular abscess in the thigh plan post surgery patient doing well continue abx will deescalte vanco tomorrow rest as per primary
[2017-07-14] MEDS: SODIUM CHLORIDE 1,000 ML IV SCH (14:28)
[2017-07-14 15:55] LABS: MCH 23.3 pg (25.7-33.7); MCHC 31.1 g/dl (32.0-35.9); MEAN CELL VOLUME 75.1 fl (80-96); MEAN PLT VOLUME 6.7 fl (7.5-11.1); PLATELET COUNT 584 K/MM3 (134-434); RDW 16.2 % (11.9-15.9); WHITE BLOOD COUNT 11.6 K/mm3 (4.0-10.0)
[2017-07-14] MEDS ORDERED: INSULIN (NOVOLOG) ASPART 100 UNITS/ML 10ML VIAL ONE (20:32)
[2017-07-14] MEDS ORDERED: PT OWN MED DRAWER 7, Y5N ONE (20:35)
[2017-07-14] MEDS: LIDOCAINE 5% TOPICAL PATCH TP SCH (21:33)
[2017-07-15] MEDS: PIPERACILLIN/TAZOB 3.375 GM 50 ML IVPB SCH ×3 (01:44→18:21)
[2017-07-15] MEDS: oxyCODONE HCL 5 MG TABLET PO PRN ×3 (02:13→19:01)
[2017-07-15] MEDS: ACETAMINOPHEN 325 MG TABLET (FP) PO PRN ×5 (02:14→19:01)
[2017-07-15] MEDS: INSULIN DETEMIR 100 UNITS/ML MDV SQ SCH (06:21)
[2017-07-15] MEDS: INSULIN SLIDING SCALE (NOVOLOG) 1 VIAL SQ SCH ×4 (06:22→21:10)
[2017-07-15 08:08] LABS: ALBUMIN 1.3 g/dl (3.4-5.0); ANION GAP 11 (8-16); CALCIUM 7.9 mg/dL (8.5-10.1); CO2 20 mmol/L (21-32); CREATININE 0.9 mg/dL (0.7-1.3); GLUCOSE,RANDOM 182 mg/dL (74-106); SGOT/AST 23 U/L (15-37)
[2017-07-15 08:11] LABS: ALK PHOS 540 U/L (45-117); BILIRUBIN,TOTAL 0.2 mg/dL (0.2-1.0); SGPT/ALT 11 U/L (12-78)
[2017-07-15] MEDS: AMINO ACIDS/PROTEIN HYDROLYS 30 ML LIQUID.PKT PO SCH ×2 (08:29→16:30)
[2017-07-15 08:52] LABS: MCH 23.7 pg (25.7-33.7); MCHC 31.8 g/dl (32.0-35.9); MEAN CELL VOLUME 74.7 fl (80-96); MEAN PLT VOLUME 7.2 fl (7.5-11.1); RDW 16.3 % (11.9-15.9)
[2017-07-15] MEDS: morphine SO4 SUSTAINED ACTING 15 MG TABLET.SA PO SCH ×2 (09:36→21:09)
[2017-07-15] MEDS: GABAPENTIN 300 MG CAPSULE (FP) PO SCH ×2 (09:36→21:10)
[2017-07-15] MEDS: RANITIDINE HCL 150 MG TABLET (FP) PO SCH (09:36)
[2017-07-15] MEDS: LIDOCAINE PATCH REMOVAL MC SCH ×2 (09:40→21:09)
[2017-07-15] MEDS: LISINOPRIL 20 MG TABLET (FP) PO SCH (09:41)
[2017-07-15] MEDS: VANCOMYCIN 1,000 MG in DEXTROSE 5%-WATER - 250 ML IVPB SCH (09:41)
[2017-07-15] MEDS: ZINC OXIDE 20% TOPICAL OINTMENT 30 GM TUBE TP SCH ×2 (09:43→21:11)
--- NOTE | 2017-07-15 10:06 | PN ---
Progress Note, Physician History of Present Illness: patient stable minimal pain at the operated site - Current Medication List Current Medications: Active Medications Acetaminophen (Tylenol -) 650 mg PO Q4H PRN PRN Reason: FEVER OR PAIN Last Admin: 07/15/17 06:23 Dose: 650 mg Amino Acids (Prosource No Carb Liquid Pkt) 30 ml PO BID@0800,1730 [facility] Last Admin: 07/15/17 08:29 Dose: Not Given B12/Folic Ac/Intrin Fact/Iron/Vit C (Niferex-150 Forte -) 1 each PO DAILY [facility] Last Admin: 07/14/17 10:31 Dose: 1 each Diphenhydramine HCl (Benadryl Injection -) 25 mg IVPB Q8H PRN PRN Reason: NAUSEA Docusate Sodium (Colace -) 100 mg PO Q8H PRN PRN Reason: CONSTIPATION Gabapentin (Neurontin -) 300 mg PO DAILY [facility] Last Admin: 07/15/17 09:36 Dose: 300 mg Gabapentin (Neurontin -) 900 mg PO HS [facility] Last Admin: 07/14/17 21:34 Dose: 900 mg Sodium Chloride (Normal Saline -) 1,000 mls @ 75 mls/hr IV ASDIR [facility] Last Admin: 07/14/17 14:28 Dose: Not Given Vancomycin HCl 1,000 mg/ (Dextrose) 250 mls @ 166.667 mls/hr IVPB BID [facility] PRN Reason: Protocol Last Admin: 07/15/17 09:41 Dose: 166.667 mls/hr Piperacillin/Tazobactam/Dextrose (Zosyn 3.375gm Ivpb (Premix)) 50 mls @ 100 mls /hr IVPB Q8H-IV [facility] PRN Reason: Protocol Last Admin: 07/15/17 01:44 Dose: 100 mls/hr Insulin Aspart (Novolog Vial Sliding Scale -) 1 vial SQ ACHS [facility] PRN Reason: Protocol Last Admin: 07/15/17 06:22 Dose: 2 units Insulin Detemir (Levemir Vial) 15 units SQ AM [facility] Last Admin: 07/15/17 06:21 Dose: 15 unit Lidocaine (Lidoderm Patch -) 1 patch TP HS [facility] Last Admin: 07/14/17 21:33 Dose: 1 patch Lisinopril (Prinivil) 30 mg PO DAILY [facility] Last Admin: 07/15/17 09:41 Dose: 30 mg Lorazepam (Ativan Injection -) 1 mg IVPUSH Q12H PRN PRN Reason: ANXIETY Metoclopramide HCl (Reglan Injection -) 10 mg IVPB Q8H PRN PRN Reason: NAUSEA AND/OR VOMITING Miscellaneous (Lidoderm Patch Removal) 1 each MC DAILY [facility] Last Admin: 07/15/17 09:40 Dose: 1 each Miscellaneous (Lidoderm Patch Removal) 1 each MC DAILY@2200 [facility] Last Admin: 07/14/17 21:34 Dose: Not Given Morphine Sulfate (Morphine Sulfate) 2 mg IVPUSH Q4H PRN PRN Reason: PAIN Last Admin: 07/12/17 16:46 Dose: 2 mg Morphine Sulfate (Ms Contin -) 15 mg PO BID [facility] Last Admin: 07/15/17 09:36 Dose: 15 mg Multi-Ingredient Ointment (Zinc Oxide) 1 applic TP BID [facility] Last Admin: 07/15/17 09:43 Dose: 1 applic Oxycodone HCl (Roxicodone -) 10 mg PO Q4H PRN PRN Reason: PAIN Last Admin: 07/15/17 06:23 Dose: 10 mg Ranitidine HCl (Zantac -) 150 mg PO DAILY [facility] Last Admin: 07/15/17 09:36 Dose: 150 mg - Objective Vital Signs: Vital Signs Temperature 98.4 F 07/15/17 08:42 Pulse Rate 91 H 07/15/17 08:42 Respiratory Rate 20 07/15/17 08:42 Blood Pressure 135/83 07/15/17 08:42 O2 Sat by Pulse Oximetry (%) 96 07/14/17 21:00 Constitutional: Yes: No Distress, Calm Cardiovascular: Yes: Regular Rate and Rhythm Respiratory: Yes: Regular, CTA Bilaterally Gastrointestinal: Yes: Normal Bowel Sounds, Soft Musculoskeletal: Yes: Other Extremities: Yes: Other (wound vac in place) Neurological: Yes: Alert, Oriented Psychiatric: Yes: Alert, Oriented Labs: CBC, BMP 07/15/17 06:00 07/15/17 06:00 INR, PTT INR 1.09 (0.82-1.09) 07/05/17 06:00 Assessment/Plan Problem List - Problems (1) Sepsis Code(s): A41.9 - SEPSIS, UNSPECIFIED ORGANISM (2) Abscess and cellulitis Code(s): L03.90 - CELLULITIS, UNSPECIFIED L02.91 - CUTANEOUS ABSCESS, UNSPECIFIED (3) Cellulitis and abscess of left leg Code(s): L03.116 - CELLULITIS OF LEFT LOWER LIMB L02.416 - CUTANEOUS ABSCESS OF LEFT LOWER LIMB (4) Intractable vomiting with nausea Code(s): R11.2 - NAUSEA WITH VOMITING, UNSPECIFIED Qualifiers: Vomiting type: unspecified Qualified Code(s): R11.2 - Nausea with vomiting, unspecified; R11.2 - Nausea with vomiting, unspecified (5) Noncompliance with diabetes treatment Code(s): Z91.19 - PATIENT'S NONCOMPLIANCE W OTH MEDICAL TREATMENT AND REGIMEN (6) Diabetic ulcer of lower extremity Code(s): E11.622 - TYPE 2 DIABETES MELLITUS WITH OTHER SKIN ULCER L97.909 - NON-PRS CHRONIC ULC UNSP PRT OF UNSP LOW LEG W UNSP SEVERITY lactic acidosis leukocytosis uti wound infection intramuscular abscess in the thigh plan post surgery patient doing well continue abx stopped vanco rest as per primary
[2017-07-15] MEDS: FE POLYSAC/CYANOCOBAL/FA COMBO CAPSULE PO SCH (10:40)
[2017-07-15 12:06] LABS: PLATELET COUNT 628 K/MM3 (134-434); TOTAL CELLS COUNTED 100; WHITE BLOOD COUNT 23.9 K/mm3 (4.0-10.0)
[2017-07-15 12:07] LABS: BASOPHIL %. 1 % (0-2.0); PLATELET ESTIMATE INCREASED (NORMAL)
--- NOTE | 2017-07-15 12:07 | PN ---
Physical Exam: SUBJECTIVE: Patient seen and examined at the bedside. States he feels better. Denies any pain. OBJECTIVE: Wound care on upper left posterior thigh WBC jumped up today @ 23.9, however, clinically he looks much improved, No leg edema, draining on wound vact No reported fevers. Will reculture. Vital Signs Period Temp Pulse Resp BP Sys/Monet Pulse Ox Last 24 Hr 98 F-98.6 F 90-96 18-20 117-143/72-83 96-100 GENERAL: The patient is awake, alert, and fully oriented, in no acute distress. HEAD: Normal with no signs of trauma. EYES: PERRL, extraocular movements intact, sclera anicteric, conjunctiva clear. No ptosis. ENT: Ears normal, nares patent, oropharynx clear without exudates, moist mucous membranes. NECK: Trachea midline, full range of motion, supple. LUNGS: Breath sounds equal, clear to auscultation bilaterally, no accessory muscle use. HEART: Regular rate and rhythm ABDOMEN: Soft, nontender, nondistended, normoactive bowel sounds, no guarding, no rebound, no hepatosplenomegaly, no masses. EXTREMITIES: wound vac in place, Left BKA NEUROLOGICAL: Normal speech, gait not observed. PSYCH: Normal mood, normal affect. SKIN: Warm, dry, normal turgor, no rashes or lesions noted Laboratory Results - last 24 hr 07/12/17 07/14/17 07/14/17 06:15 15:10 16:56 WBC 11.6 H RBC 3.19 L Hgb 7.4 L D Hct 23.9 L MCV 75.1 L MCH 23.3 L MCHC 31.1 L RDW 16.2 H Plt Count 584 H MPV 6.7 L Sodium Potassium Chloride Carbon Dioxide Anion Gap BUN Creatinine Creat Clearance w eGFR POC Glucometer 149 Random Glucose Calcium Total Bilirubin AST ALT Alkaline Phosphatase Total Protein Albumin Blood Type A POSITIVE Antibody Screen Negative Crossmatch See Detail 07/14/17 07/15/17 07/15/17 21:45 06:00 06:00 WBC RBC 3.10 L Hgb 7.3 L Hct 23.1 L MCV 74.7 L MCH 23.7 L MCHC 31.8 L RDW 16.3 H Plt Count MPV 7.2 L Sodium 138 Potassium 3.9 Chloride 107 Carbon Dioxide 20 L Anion Gap 11 BUN 5 L D Creatinine 0.9 Creat Clearance w eGFR > 60 POC Glucometer 150 Random Glucose 182 H D Calcium 7.9 L Total Bilirubin 0.2 D AST 23 D ALT 11 L Alkaline Phosphatase 540 H Total Protein 6.0 L Albumin 1.3 L Blood Type Antibody Screen Crossmatch 07/15/17 06:20 WBC RBC Hgb Hct MCV MCH MCHC RDW Plt Count MPV Sodium Potassium Chloride Carbon Dioxide Anion Gap BUN Creatinine Creat Clearance w eGFR POC Glucometer 222 Random Glucose Calcium Total Bilirubin AST ALT Alkaline Phosphatase Total Protein Albumin Blood Type Antibody Screen Crossmatch Active Medications Generic Name Dose Route Start Last Admin Trade Name Freq PRN Reason Stop Dose Admin Acetaminophen 650 mg 07/12/17 13:18 07/15/17 06:23 Tylenol - PO 650 mg Q4H PRN Administration FEVER OR PAIN Amino Acids 30 ml 07/12/17 17:30 07/15/17 08:29 Prosource No Carb Liquid Pkt PO Not Given BID@0800,1730 JESUS B12/Folic Ac/Intrin Fact/Iron/Vit C 1 each 07/13/17 10:00 07/15/17 10:40 Niferex-150 Forte - PO 1 each DAILY JESUS Administration Diphenhydramine HCl 25 mg 07/12/17 13:18 Benadryl Injection - IVPB Q8H PRN NAUSEA Docusate Sodium 100 mg 07/12/17 13:18 Colace - PO Q8H PRN CONSTIPATION Gabapentin 300 mg 07/15/17 10:00 07/15/17 09:36 Neurontin - PO 300 mg DAILY JESUS Administration Gabapentin 900 mg 07/14/17 22:00 07/14/17 21:34 Neurontin - PO 900 mg HS JESUS Administration Sodium Chloride 1,000 mls @ 75 mls/hr 07/12/17 13:18 07/14/17 14:28 Normal Saline - IV Not Given ASDIR JESUS Piperacillin/Tazobactam/Dextrose 50 mls @ 100 mls/hr 07/12/17 18:00 07/15/17 10 :40 Zosyn 3.375gm Ivpb (Premix) IVPB 100 mls/hr Q8H-IV JESUS Administration Protocol Insulin Aspart 1 vial 07/12/17 16:30 07/15/17 11:32 Novolog Vial Sliding Scale - SQ Not Given ACHS [facility] Protocol Insulin Detemir 15 units 07/13/17 07:00 07/15/17 06:21 Levemir Vial SQ 15 unit AM JESUS Administration Lidocaine 1 patch 07/12/17 22:00 07/14/17 21:33 Lidoderm Patch - TP 1 patch HS JESUS Administration Lisinopril 30 mg 07/13/17 10:00 07/15/17 09:41 Prinivil PO 30 mg DAILY JESUS Administration Lorazepam 1 mg 07/12/17 13:18 Ativan Injection - IVPUSH Q12H PRN ANXIETY Metoclopramide HCl 10 mg 07/12/17 13:18 Reglan Injection - IVPB Q8H PRN NAUSEA AND/OR VOMITING Miscellaneous 1 each 07/13/17 10:00 07/15/17 09:40 Lidoderm Patch Removal MC 1 each DAILY JESUS Administration Miscellaneous 1 each 07/12/17 22:00 07/14/17 21:34 Lidoderm Patch Removal MC Not Given DAILY@2200 JESUS Morphine Sulfate 2 mg 07/12/17 13:18 07/12/17 16:46 Morphine Sulfate IVPUSH 2 mg Q4H PRN Administration PAIN Morphine Sulfate 15 mg 07/14/17 12:00 07/15/17 09:36 Ms Contin - PO 15 mg BID JESUS Administration Multi-Ingredient Ointment 1 applic 07/12/17 22:00 07/15/17 09:43 Zinc Oxide TP 1 applic BID JESUS Administration Oxycodone HCl 10 mg 07/12/17 13:18 07/15/17 06:23 Roxicodone - PO 10 mg Q4H PRN Administration PAIN Ranitidine HCl 150 mg 07/13/17 10:00 07/15/17 09:36 Zantac - PO 150 mg DAILY JESUS Administration ASSESSMENT/PLAN: Patient is a 47 year old male with a significant past medical history of diabetes mellitus, multiple soft tissue infections and left BKA. He comes to the ED on 06/17/2017 complaining of left leg pain for the past week. The pain was located behind left knee and radiates up the posterior thigh. This pain was associated with fever, chills, nausea, vomiting and body aches. He was seeing Dr. Jennings at the wound care clinic and was undergoing hyperbaric treatment. Imagin07/10/2017: CT/Lower ext. w/o contrast shows: (1) Interval development of several large thick walled collection within the left hamstring. (2) Phlegmon and/or abscess surrounding the entire course of theleft sciatic nerve with efacement of the round fat planes, has significantly progressed since 06/18/17 (3) Large skin and soft tissue defect overlying the posterolateral inferior left thigh and left knee with surrounding skin thickening, subcutaneous fat stranding and fluid representing some combination of post- surgical changes and cellulits/phlegmon (4) Focal area of demineralization with relatively less distinct cortex in the posterolateral left tibial plateau. Focal demineralization in the lateral aspect of the lateral femoral condyle. They findings may be attributed to osteomylitis (5) Multiple large inguinal, left iliac and pelvic sidewall lymph nodes are most likely reactive. ID: Sepsis secondary to diabetic wound, acute A/P: WBC in last 72 hours 12.5>11.6>23.9, remains afebrile, Vanco stopped by ID , did receive morning dose s/p debridement with Dr. Jennings on 07/05/2017 and 07/12/2017 Patient on Zosyn, Vanco stopped, ID following Patient has small amount of sero sang. drainage on wound care vac container WBC 23.9?, will repeat to confirmt, pt clinically looks much improved Endocrine: Hyperglycemia vs DKA, resolved A/P: Anion gap now closed On Levemir 15 units daily Becomes symptomatic when blood sugars go below 150, goal is to keep BS around 150-200s Cardiology: Hypertension, controlled A/P: Lisinopril uptitrated to 30mg daily on 07/03 Monitor BP Hematology: Anemia, low trending hmg/hct, monitor for now If continued to decrease will order 1 unit of prbc if pt agrees Renal: KENDRICK, resolved A/P: monitor daily labs F.E.N. Fluids: tolerating PO Electrolytes: monitor electrolytes Nutrition: diabetic diet/low sodium Prostat to promote wound healing Prophylaxis: DVT: heparin BID GI: pepcid, reglan Disposition: Full code. Visit type - Emergency Visit Emergency Visit: Yes ED Registration Date: 06/17/17 Care time: The patient presented to the Emergency Department on the above date and was hospitalized for further evaluation of their emergent condition. - New Patient This patient is new to me today: No - Critical Care Critical Care patient: No - Discharge Referral Referred to [facility] No
[2017-07-15] MEDS ORDERED: morphine CARPU-JECT 2 MG/1 ML DISP.SYRIN IVPUSH PRN (13:50)
[2017-07-15] MEDS ORDERED: oxyCODONE HCL 5 MG TABLET PO PRN (13:58)
[2017-07-15] MEDS: SODIUM CHLORIDE 1,000 ML IV SCH (14:57)
[2017-07-15] MEDS ORDERED: oxyCODONE HCL 5 MG TABLET PO ONE (15:00)
[2017-07-15 17:12] LABS: BASOPHIL 0.4 % (0-2.0); EOSINOPHIL 4.6 % (0-4.5); MCH 23.7 pg (25.7-33.7); MCHC 31.8 g/dl (32.0-35.9); MEAN CELL VOLUME 74.4 fl (80-96); MEAN PLT VOLUME 6.8 fl (7.5-11.1); PLATELET COUNT 708 K/MM3 (134-434); RDW 16.3 % (11.9-15.9); WHITE BLOOD COUNT 12.4 K/mm3 (4.0-10.0)
[2017-07-15] MEDS ORDERED: PT OWN MED DRAWER 7, Y5N ONE (18:18)
[2017-07-15] MEDS: LIDOCAINE 5% TOPICAL PATCH TP SCH (21:07)
[2017-07-16] MEDS: PIPERACILLIN/TAZOB 3.375 GM 50 ML IVPB SCH ×3 (01:34→17:39)
[2017-07-16] MEDS: ACETAMINOPHEN 325 MG TABLET (FP) PO PRN ×6 (01:36→23:59)
[2017-07-16] MEDS: oxyCODONE HCL 5 MG TABLET PO PRN ×6 (01:36→23:59)
[2017-07-16] MEDS: INSULIN SLIDING SCALE (NOVOLOG) 1 VIAL SQ SCH ×4 (06:17→21:15)
[2017-07-16] MEDS: INSULIN DETEMIR 100 UNITS/ML MDV SQ SCH (06:18)
[2017-07-16 08:14] LABS: BASOPHIL 0.4 % (0-2.0); EOSINOPHIL 4.9 % (0-4.5); MCHC 31.7 g/dl (32.0-35.9); MEAN CELL VOLUME 75.7 fl (80-96); MEAN PLT VOLUME 6.8 fl (7.5-11.1); PLATELET COUNT 690 K/MM3 (134-434); RDW 16.9 % (11.9-15.9); WHITE BLOOD COUNT 12.3 K/mm3 (4.0-10.0)
[2017-07-16 08:43] LABS: ALBUMIN 1.5 g/dl (3.4-5.0); ALK PHOS 546 U/L (45-117); ANION GAP 8 (8-16); BILIRUBIN,TOTAL 0.4 mg/dL (0.2-1.0); CALCIUM 8.1 mg/dL (8.5-10.1); CO2 23 mmol/L (21-32); CREATININE 0.9 mg/dL (0.7-1.3); GLUCOSE,RANDOM 151 mg/dL (74-106); SGOT/AST 21 U/L (15-37); SGPT/ALT 13 U/L (12-78); TOT PROT 6.7 g/dl (6.4-8.2)
[2017-07-16] MEDS: morphine SO4 SUSTAINED ACTING 15 MG TABLET.SA PO SCH ×2 (09:35→21:59)
[2017-07-16] MEDS: AMINO ACIDS/PROTEIN HYDROLYS 30 ML LIQUID.PKT PO SCH ×2 (09:36→17:42)
[2017-07-16] MEDS: LISINOPRIL 20 MG TABLET (FP) PO SCH (11:01)
[2017-07-16] MEDS: FE POLYSAC/CYANOCOBAL/FA COMBO CAPSULE PO SCH (11:01)
[2017-07-16] MEDS: GABAPENTIN 300 MG CAPSULE (FP) PO SCH ×2 (11:01→21:59)
[2017-07-16] MEDS: RANITIDINE HCL 150 MG TABLET (FP) PO SCH (11:02)
[2017-07-16] MEDS: ZINC OXIDE 20% TOPICAL OINTMENT 30 GM TUBE TP SCH ×2 (11:06→22:02)
[2017-07-16] MEDS: SODIUM CHLORIDE 1,000 ML IV SCH (14:02)
--- NOTE | 2017-07-16 14:55 | PN ---
Physical Exam: SUBJECTIVE: Patient seen and examined at the bedside. Denies any further pain or discomfort. States pain is being managed. OBJECTIVE: Received 1 unit of PRBC overnight, hmg/hct low stable Discharge planning PT in a.m. Vital Signs Period Temp Pulse Resp BP Sys/Monet Pulse Ox Last 24 Hr 97.8 F-98.9 F 94-106 18-20 123-149/67-92 100-100 GENERAL: The patient is awake, alert, and fully oriented, in no acute distress. HEAD: Normal with no signs of trauma. EYES: PERRL, extraocular movements intact, sclera anicteric, conjunctiva clear. No ptosis. ENT: Ears normal, nares patent, oropharynx clear without exudates, moist mucous membranes. NECK: Trachea midline, full range of motion, supple. LUNGS: Breath sounds equal, clear to auscultation bilaterally, no accessory muscle use. HEART: Regular rate and rhythm ABDOMEN: Soft, nontender, nondistended, normoactive bowel sounds, no guarding, no rebound, no hepatosplenomegaly, no masses. EXTREMITIES: wound vac in place, Left BKA NEUROLOGICAL: Normal speech, gait not observed. PSYCH: Normal mood, normal affect. SKIN: Warm, dry, normal turgor, no rashes or lesions noted Laboratory Results - last 24 hr 07/15/17 07/15/17 07/15/17 17:00 17:30 19:20 WBC 12.4 H D RBC 2.91 L Hgb 6.9 L* Hct 21.7 L MCV 74.4 L MCH 23.7 L MCHC 31.8 L RDW 16.3 H Plt Count 708 H MPV 6.8 L Neutrophils % 80.0 Lymphocytes % 9.3 Monocytes % 5.7 Eosinophils % 4.6 H Basophils % 0.4 Sodium Potassium Chloride Carbon Dioxide Anion Gap BUN Creatinine Creat Clearance w eGFR POC Glucometer 125 Random Glucose Calcium Total Bilirubin AST ALT Alkaline Phosphatase Total Protein Albumin Blood Type A POSITIVE Antibody Screen Negative Crossmatch See Detail 07/15/17 07/16/17 07/16/17 21:06 05:45 06:00 WBC 12.3 H RBC 3.61 L D Hgb 8.7 L D Hct 27.3 L D MCV 75.7 L MCH 24.0 L MCHC 31.7 L RDW 16.9 H Plt Count 690 H MPV 6.8 L Neutrophils % 80.0 Lymphocytes % 10.0 Monocytes % 4.7 Eosinophils % 4.9 H Basophils % 0.4 Sodium Potassium Chloride Carbon Dioxide Anion Gap BUN Creatinine Creat Clearance w eGFR POC Glucometer 141 180 Random Glucose Calcium Total Bilirubin AST ALT Alkaline Phosphatase Total Protein Albumin Blood Type Antibody Screen Crossmatch 07/16/17 07/16/17 06:00 11:09 WBC RBC Hgb Hct MCV MCH MCHC RDW Plt Count MPV Neutrophils % Lymphocytes % Monocytes % Eosinophils % Basophils % Sodium 139 Potassium 4.1 Chloride 108 H Carbon Dioxide 23 Anion Gap 8 BUN 9 D Creatinine 0.9 Creat Clearance w eGFR > 60 POC Glucometer 184 Random Glucose 151 H Calcium 8.1 L Total Bilirubin 0.4 D AST 21 ALT 13 Alkaline Phosphatase 546 H Total Protein 6.7 Albumin 1.5 L Blood Type Antibody Screen Crossmatch Active Medications Generic Name Dose Route Start Last Admin Trade Name Freq PRN Reason Stop Dose Admin Acetaminophen 650 mg 07/12/17 13:18 07/16/17 12:50 Tylenol - PO 650 mg Q4H PRN Administration FEVER OR PAIN Amino Acids 30 ml 07/12/17 17:30 07/16/17 09:36 Prosource No Carb Liquid Pkt PO Not Given BID@0800,1730 JESUS B12/Folic Ac/Intrin Fact/Iron/Vit C 1 each 07/13/17 10:00 07/16/17 11:01 Niferex-150 Forte - PO 1 each DAILY JESUS Administration Diphenhydramine HCl 25 mg 07/12/17 13:18 Benadryl Injection - IVPB Q8H PRN NAUSEA Docusate Sodium 100 mg 07/12/17 13:18 Colace - PO Q8H PRN CONSTIPATION Gabapentin 300 mg 07/15/17 10:00 07/16/17 11:01 Neurontin - PO 300 mg DAILY JESUS Administration Gabapentin 900 mg 07/14/17 22:00 07/15/17 21:10 Neurontin - PO 900 mg HS JESUS Administration Sodium Chloride 1,000 mls @ 75 mls/hr 07/12/17 13:18 07/16/17 14:02 Normal Saline - IV Not Given ASDIR JESUS Piperacillin/Tazobactam/Dextrose 50 mls @ 100 mls/hr 07/12/17 18:00 07/16/17 11 :00 Zosyn 3.375gm Ivpb (Premix) IVPB 100 mls/hr Q8H-IV JESUS Administration Protocol Insulin Aspart 1 vial 07/12/17 16:30 07/16/17 11:24 Novolog Vial Sliding Scale - SQ Not Given ACHS [facility] Protocol Insulin Detemir 15 units 07/13/17 07:00 07/16/17 06:18 Levemir Vial SQ 15 unit AM JESUS Administration Lidocaine 1 patch 07/12/17 22:00 07/15/17 21:07 Lidoderm Patch - TP 1 patch HS JESUS Administration Lisinopril 30 mg 07/13/17 10:00 07/16/17 11:01 Prinivil PO 30 mg DAILY JESUS Administration Metoclopramide HCl 10 mg 07/12/17 13:18 Reglan Injection - IVPB Q8H PRN NAUSEA AND/OR VOMITING Miscellaneous 1 each 07/12/17 22:00 07/15/17 21:09 Lidoderm Patch Removal MC Not Given DAILY@2200 EJSUS Morphine Sulfate 15 mg 07/14/17 12:00 07/16/17 09:35 Ms Contin - PO 15 mg BID JESUS Administration Multi-Ingredient Ointment 1 applic 07/12/17 22:00 07/16/17 11:06 Zinc Oxide TP 1 applic BID JESUS Administration Oxycodone HCl 10 mg 07/15/17 14:26 07/16/17 12:48 Roxicodone - PO 10 mg Q4H PRN Administration PAIN Ranitidine HCl 150 mg 07/13/17 10:00 07/16/17 11:02 Zantac - PO 150 mg DAILY JESUS Administration ASSESSMENT/PLAN: Patient is a 47 year old male with a significant past medical history of diabetes mellitus, multiple soft tissue infections and left BKA. He comes to the ED on 06/17/2017 complaining of left leg pain for the past week. The pain was located behind left knee and radiates up the posterior thigh. This pain was associated with fever, chills, nausea, vomiting and body aches. He was seeing Dr. Jennings at the wound care clinic and was undergoing hyperbaric treatment. Imagin07/10/2017: CT/Lower ext. w/o contrast shows: (1) Interval development of several large thick walled collection within the left hamstring. (2) Phlegmon and/or abscess surrounding the entire course of theleft sciatic nerve with efacement of the round fat planes, has significantly progressed since 06/18/17 (3) Large skin and soft tissue defect overlying the posterolateral inferior left thigh and left knee with surrounding skin thickening, subcutaneous fat stranding and fluid representing some combination of post- surgical changes and cellulits/phlegmon (4) Focal area of demineralization with relatively less distinct cortex in the posterolateral left tibial plateau. Focal demineralization in the lateral aspect of the lateral femoral condyle. They findings may be attributed to osteomylitis (5) Multiple large inguinal, left iliac and pelvic sidewall lymph nodes are most likely reactive. ID: Sepsis secondary to diabetic wound, improving A/P: WBC in last 72 hours 11.6>23.9>12.3 remains afebrile, Vanco stopped by ID, on Zosyn s/p debridement with Dr. Jennings on 07/05/2017 and 07/12/2017 Patient has small amount of sero sang. drainage on wound care vac container WBC 12.3 today, patient improving Endocrine: Hyperglycemia vs DKA, resolved A/P: Anion gap now closed On Levemir 15 units daily Becomes symptomatic when blood sugars go below 150, goal is to keep BS around 150-200s Cardiology: Hypertension, controlled A/P: Lisinopril uptitrated to 30mg daily on 07/03 Monitor BP Hematology: Anemia, s/p 1 unit of prbc, hmg/hct stable Renal: KENDRICK, resolved A/P: monitor daily labs F.E.N. Fluids: tolerating PO Electrolytes: monitor electrolytes Nutrition: diabetic diet/low sodium Prostat to promote wound healing Prophylaxis: DVT: heparin BID GI: pepcid, reglan Disposition: Full code. Discharge planning. Visit type - Emergency Visit Emergency Visit: Yes ED Registration Date: 06/17/17 Care time: The patient presented to the Emergency Department on the above date and was hospitalized for further evaluation of their emergent condition. - New Patient This patient is new to me today: No - Critical Care Critical Care patient: No - Discharge Referral Referred to [facility] No
[2017-07-16] MEDS: LIDOCAINE 5% TOPICAL PATCH TP SCH (21:59)
[2017-07-17] MEDS: PIPERACILLIN/TAZOB 3.375 GM 50 ML IVPB SCH ×2 (01:01→10:09)
[2017-07-17] MEDS: ACETAMINOPHEN 325 MG TABLET (FP) PO PRN ×4 (05:46→23:14)
[2017-07-17] MEDS: oxyCODONE HCL 5 MG TABLET PO PRN ×4 (05:47→23:12)
[2017-07-17] MEDS: INSULIN SLIDING SCALE (NOVOLOG) 1 VIAL SQ SCH ×4 (05:59→21:51)
[2017-07-17] MEDS: INSULIN DETEMIR 100 UNITS/ML MDV SQ SCH (06:25)
[2017-07-17 08:38] LABS: BASOPHIL 0.7 % (0-2.0); EOSINOPHIL 4.2 % (0-4.5); MCH 23.7 pg (25.7-33.7); MCHC 31.7 g/dl (32.0-35.9); MEAN CELL VOLUME 74.9 fl (80-96); MEAN PLT VOLUME 6.6 fl (7.5-11.1); PLATELET COUNT 708 K/MM3 (134-434); WHITE BLOOD COUNT 14.7 K/mm3 (4.0-10.0)
[2017-07-17] MEDS: AMINO ACIDS/PROTEIN HYDROLYS 30 ML LIQUID.PKT PO SCH ×2 (08:39→16:47)
[2017-07-17 08:58] LABS: ALBUMIN 1.5 g/dl (3.4-5.0); ALK PHOS 506 U/L (45-117); ANION GAP 9 (8-16); BILIRUBIN,TOTAL 0.3 mg/dL (0.2-1.0); CALCIUM 8.2 mg/dL (8.5-10.1); CO2 22 mmol/L (21-32); CREATININE 0.9 mg/dL (0.7-1.3); GLUCOSE,RANDOM 149 mg/dL (74-106); SGOT/AST 17 U/L (15-37); SGPT/ALT 11 U/L (12-78)
[2017-07-17] MEDS: morphine SO4 SUSTAINED ACTING 15 MG TABLET.SA PO SCH ×2 (10:00→21:39)
[2017-07-17] MEDS: GABAPENTIN 300 MG CAPSULE (FP) PO SCH ×2 (10:00→21:50)
[2017-07-17] MEDS: LIDOCAINE PATCH REMOVAL MC SCH (10:01)
[2017-07-17] MEDS: LISINOPRIL 20 MG TABLET (FP) PO SCH (10:01)
[2017-07-17] MEDS: FE POLYSAC/CYANOCOBAL/FA COMBO CAPSULE PO SCH (10:01)
[2017-07-17] MEDS: RANITIDINE HCL 150 MG TABLET (FP) PO SCH ×3 (10:01→14:21)
[2017-07-17] MEDS: ZINC OXIDE 20% TOPICAL OINTMENT 30 GM TUBE TP SCH ×2 (10:02→22:57)
[2017-07-17] MEDS ORDERED: PICC LINE 8 ML FLUSH PROTOCOL IVPUSH PRN (11:31)
--- NOTE | 2017-07-17 11:47 | PN ---
Progress Note, Physician History of Present Illness: stable still with some pain movement of the joint not so good - Current Medication List Current Medications: Active Medications Acetaminophen (Tylenol -) 650 mg PO Q4H PRN PRN Reason: FEVER OR PAIN Last Admin: 07/17/17 05:46 Dose: 650 mg Amino Acids (Prosource No Carb Liquid Pkt) 30 ml PO BID@0800,1730 [facility] Last Admin: 07/17/17 08:39 Dose: Not Given B12/Folic Ac/Intrin Fact/Iron/Vit C (Niferex-150 Forte -) 1 each PO DAILY [facility] Last Admin: 07/17/17 10:01 Dose: 1 each Diphenhydramine HCl (Benadryl Injection -) 25 mg IVPB Q8H PRN PRN Reason: NAUSEA Docusate Sodium (Colace -) 100 mg PO Q8H PRN PRN Reason: CONSTIPATION Fluconazole (Diflucan -) 100 mg PO DAILY [facility] Gabapentin (Neurontin -) 300 mg PO DAILY [facility] Last Admin: 07/17/17 10:00 Dose: 300 mg Gabapentin (Neurontin -) 900 mg PO HS [facility] Last Admin: 07/16/17 21:59 Dose: 900 mg IV Flush (Picc Line Flush) 8 ml IVPUSH PRN PRN PRN Reason: Protocol Sodium Chloride (Normal Saline -) 1,000 mls @ 75 mls/hr IV ASDIR [facility] Last Admin: 07/16/17 14:02 Dose: Not Given Piperacillin/Tazobactam/Dextrose (Zosyn 3.375gm Ivpb (Premix)) 50 mls @ 100 mls /hr IVPB Q8H-IV JESUS PRN Reason: Protocol Last Admin: 07/17/17 10:09 Dose: 100 mls/hr Insulin Aspart (Novolog Vial Sliding Scale -) 1 vial SQ ACHS JESUS PRN Reason: Protocol Last Admin: 07/17/17 11:18 Dose: Not Given Insulin Detemir (Levemir Vial) 15 units SQ AM [facility] Last Admin: 07/17/17 06:25 Dose: 15 unit Lidocaine (Lidoderm Patch -) 1 patch TP HS [facility] Last Admin: 07/16/17 21:59 Dose: 1 patch Lisinopril (Prinivil) 30 mg PO DAILY [facility] Last Admin: 11/06/17 10:01 Dose: 30 mg Metoclopramide HCl (Reglan Injection -) 10 mg IVPB Q8H PRN PRN Reason: NAUSEA AND/OR VOMITING Miscellaneous (Lidoderm Patch Removal) 1 each MC DAILY@1000 [facility] Last Admin: 07/17/17 10:01 Dose: 1 each Morphine Sulfate (Ms Contin -) 15 mg PO BID [facility] Last Admin: 07/17/17 10:00 Dose: 15 mg Multi-Ingredient Ointment (Zinc Oxide) 1 applic TP BID [facility] Last Admin: 07/17/17 10:02 Dose: 1 applic Oxycodone HCl (Roxicodone -) 10 mg PO Q4H PRN PRN Reason: PAIN Last Admin: 07/17/17 05:47 Dose: 10 mg Ranitidine HCl (Zantac -) 150 mg PO DAILY [facility] Last Admin: 07/17/17 10:31 Dose: Not Given - Objective Vital Signs: Vital Signs Temperature 98.5 F 07/17/17 09:00 Pulse Rate 93 H 07/17/17 09:00 Respiratory Rate 20 07/17/17 09:00 Blood Pressure 112/67 07/17/17 09:00 O2 Sat by Pulse Oximetry (%) 96 07/17/17 09:00 Constitutional: Yes: No Distress, Calm Cardiovascular: Yes: Regular Rate and Rhythm Respiratory: Yes: Regular, CTA Bilaterally Gastrointestinal: Yes: Normal Bowel Sounds, Soft Musculoskeletal: Yes: Other Extremities: Yes: Other Wound/Incision: Yes: Other (wound vac in place) Neurological: Yes: Alert, Oriented Psychiatric: Yes: Alert, Oriented Labs: CBC, BMP 07/17/17 08:10 07/17/17 08:10 INR, PTT INR 1.09 (0.82-1.09) 07/05/17 06:00 Assessment/Plan Problem List - Problems (1) Sepsis Code(s): A41.9 - SEPSIS, UNSPECIFIED ORGANISM (2) Abscess and cellulitis Code(s): L03.90 - CELLULITIS, UNSPECIFIED L02.91 - CUTANEOUS ABSCESS, UNSPECIFIED (3) Cellulitis and abscess of left leg Code(s): L03.116 - CELLULITIS OF LEFT LOWER LIMB L02.416 - CUTANEOUS ABSCESS OF LEFT LOWER LIMB (4) Intractable vomiting with nausea Code(s): R11.2 - NAUSEA WITH VOMITING, UNSPECIFIED Qualifiers: Vomiting type: unspecified Qualified Code(s): R11.2 - Nausea with vomiting, unspecified; R11.2 - Nausea with vomiting, unspecified (5) Noncompliance with diabetes treatment Code(s): Z91.19 - PATIENT'S NONCOMPLIANCE W OTH MEDICAL TREATMENT AND REGIMEN (6) Diabetic ulcer of lower extremity Code(s): E11.622 - TYPE 2 DIABETES MELLITUS WITH OTHER SKIN ULCER L97.909 - NON-PRS CHRONIC ULC UNSP PRT OF UNSP LOW LEG W UNSP SEVERITY lactic acidosis leukocytosis uti wound infection intramuscular abscess in the thigh plan post surgery patient doing well changed abx to ceftriaxone will need it for 2 weeks wound care
--- NOTE | 2017-07-17 12:02 | DS ---
Physical Exam: SUBJECTIVE: Patient seen and examined at the bedside. He denies any chest pain or shortness of breath. He is willing to go to rehab so that he can continue physical therapy. OBJECTIVE: Vital Signs Period Temp Pulse Resp BP Sys/Monet Pulse Ox Last 24 Hr 97.9 F-98.6 F 91-103 18-20 106-139/66-99 96-98 PHYSICAL EXAM GENERAL: The patient is awake, alert, and fully oriented, in no acute distress. HEAD: Normal with no signs of trauma. EYES: PERRL, extraocular movements intact, sclera anicteric, conjunctiva clear. No ptosis. ENT: Ears normal, nares patent, oropharynx clear without exudates, moist mucous membranes. NECK: Trachea midline, full range of motion, supple. LUNGS: Breath sounds equal, clear to auscultation bilaterally, no accessory muscle use. HEART: Regular rate and rhythm ABDOMEN: Soft, nontender, nondistended, normoactive bowel sounds, no guarding, no rebound, no hepatosplenomegaly, no masses. EXTREMITIES: wound vac in place, Left BKA NEUROLOGICAL: Normal speech, gait not observed. PSYCH: Normal mood, normal affect. SKIN: Warm, dry, normal turgor, no rashes or lesions noted LABS Laboratory Results - last 24 hr 07/12/17 07/15/17 07/15/17 06:15 11:29 11:31 WBC RBC Hgb Hct MCV MCH MCHC RDW Plt Count MPV Neutrophils % Lymphocytes % Monocytes % Eosinophils % Basophils % Sodium Potassium Chloride Carbon Dioxide Anion Gap BUN Creatinine Creat Clearance w eGFR POC Glucometer 480 196 Random Glucose Calcium Total Bilirubin AST ALT Alkaline Phosphatase Total Protein Albumin Blood Type A POSITIVE Antibody Screen Negative Crossmatch See Detail 07/16/17 07/16/17 07/17/17 16:33 19:59 05:49 WBC RBC Hgb Hct MCV MCH MCHC RDW Plt Count MPV Neutrophils % Lymphocytes % Monocytes % Eosinophils % Basophils % Sodium Potassium Chloride Carbon Dioxide Anion Gap BUN Creatinine Creat Clearance w eGFR POC Glucometer 111 154 156 Random Glucose Calcium Total Bilirubin AST ALT Alkaline Phosphatase Total Protein Albumin Blood Type Antibody Screen Crossmatch 07/17/17 07/17/17 07/17/17 08:10 08:10 11:16 WBC 14.7 H RBC 3.60 L Hgb 8.5 L Hct 27.0 L MCV 74.9 L MCH 23.7 L MCHC 31.7 L RDW 17.0 H Plt Count 708 H MPV 6.6 L Neutrophils % 83.0 H Lymphocytes % 7.5 L D Monocytes % 4.6 Eosinophils % 4.2 Basophils % 0.7 Sodium 138 Potassium 3.9 Chloride 107 Carbon Dioxide 22 Anion Gap 9 BUN 7 D Creatinine 0.9 Creat Clearance w eGFR > 60 POC Glucometer 149 Random Glucose 149 H Calcium 8.2 L Total Bilirubin 0.3 D AST 17 ALT 11 L Alkaline Phosphatase 506 H Total Protein 7.0 Albumin 1.5 L Blood Type Antibody Screen Crossmatch HOSPITAL COURSE: Date of Admission:06/17/17 Date of Discharge: 07/17/17 ASSESSMENT/PLAN: Patient is a 47 year old male with a significant past medical history of diabetes mellitus, multiple soft tissue infections and left BKA. He comes to the ED on 06/17/2017 complaining of left leg pain for the past week. The pain was located behind left knee and radiates up the posterior thigh. This pain was associated with fever, chills, nausea, vomiting and body aches. He was seeing Dr. Jennings at the wound care clinic and was undergoing hyperbaric treatment. Imagin07/10/2017: CT/Lower ext. w/o contrast shows: (1) Interval development of several large thick walled collection within the left hamstring. (2) Phlegmon and/or abscess surrounding the entire course of theleft sciatic nerve with efacement of the round fat planes, has significantly progressed since 06/18/17 (3) Large skin and soft tissue defect overlying the posterolateral inferior left thigh and left knee with surrounding skin thickening, subcutaneous fat stranding and fluid representing some combination of post- surgical changes and cellulits/phlegmon (4) Focal area of demineralization with relatively less distinct cortex in the posterolateral left tibial plateau. Focal demineralization in the lateral aspect of the lateral femoral condyle. They findings may be attributed to osteomylitis (5) Multiple large inguinal, left iliac and pelvic sidewall lymph nodes are most likely reactive. ID: Sepsis secondary to diabetic wound, resolved A/P: WBC in last 72 hours 23.9>12.3>14.7 remains afebrile, Has been treated with a full course of Vanco and Zosyn Will be discharged with Ceftriaxone 2gram daily for 2 more weeks (07/17/2017 through 07/31/2017) s/p left wound debridement with Dr. Jennings on 07/05/2017 and 07/12/2017 Patient has small amount of sero sang. drainage on wound care vac container, continue wound vac at rehab facility Monitor for labs Manage pain with Morphine BID long acting and oxycodone for breakthrough pain Neurontin for diabetic neuropathy. Endocrine: Hyperglycemia vs DKA, resolved A/P: Anion gap now closed On Levemir 15 units daily Becomes symptomatic when blood sugars go below 150, goal is to keep BS around 150-200s Cardiology: Hypertension, controlled A/P: Lisinopril uptitrated to 30mg daily on 07/03 Monitor BP Hematology: Anemia, s/p 1 unit of prbc, hmg/hct stable Renal: KENDRICK, resolved A/P: monitor daily labs F.E.N. Fluids: tolerating PO Electrolytes: monitor electrolytes Nutrition: diabetic diet/low sodium Prostat to promote wound healing Prophylaxis: DVT: heparin BID GI: pepcid, reglan Disposition: Full code. Discharge planning to rehab. Minutes to complete discharge: 60 Discharge Summary Reason For Visit: SEPSIS HYPOKALEMIA HYPERGLYCEMIA Current Active Problems DKA (diabetic ketoacidosis) (Acute) Diabetic neuropathy (Acute) Hyperglycemia (Acute) Hypokalemia (Acute) Leg wound, left (Acute) Pain in wound (Acute) Sepsis (Acute) Condition: Improved - Instructions Diet, Activity, Other Instructions: Mr. Bhakta: Please continue the Ceftriaxone 2gram IV antibiotics daily for another 2 weeks ( from 07/17/2017 to 07/31/17) via PICC line. Please continue the Levemir and Novolog as ordered. You will continue to use the wound vac daily on your left leg wound. Recommend labs to be done at least weekly to monitor your labs for improvement. Please call me with any questions Joyce Vaughan [facility] [phone] Referrals: Hany Nolen MD [Staff Physician] - Costa Jennings MD [Staff Physician] - Disposition: [facility] - Home Medications Comprehensive Discharge Medication List: Ambulatory Orders Collagenase Clostridium Hist. [Santyl] 1 applic TP DAILY #1 oint...g. 09/15/17 Oxycodone HCl/Acetaminophen [Percocet 10-325 mg Tablet] 1 each PO Q6H PRN This patient is new to me today: No Emergency Visit: Yes ED Registration Date: 06/17/17 Care time: The patient presented to the Emergency Department on the above date and was hospitalized for further evaluation of their emergent condition. Critical Care patient: No - Discharge Referral Referred to [facility] No
[2017-07-17] MEDS: FLUCONAZOLE 100 MG TABLET (UD) PO SCH (13:33)
[2017-07-17] MEDS: SODIUM CHLORIDE 1,000 ML IV SCH (14:06)
[2017-07-17] MEDS ORDERED: ONDANSETRON 4 MG TABLET PO ONE (14:12)
[2017-07-17] MEDS ORDERED: PT OWN MED DRAWER 7, Y5N ONE (14:26)
[2017-07-17] MEDS: CEFTRIAXONE 2 GM in DEXTROSE 5%-WATER - 100 ML IVPB SCH (14:31)
--- NOTE | 2017-07-17 15:02 | PN ---
Progress Note (short form) - Note Progress Note: Vascular Surgery Pt seen and examined. Doing well with VAC dressing. Will need PICC line as per ID Spoke to HBO to start it once he is DC. Costa Jennings DO
[2017-07-17] MEDS: HEPARIN NA (PORCINE) 5,000 UNITS/ML 1ML VIAL SQ SCH (21:38)
[2017-07-17] MEDS: LIDOCAINE 5% TOPICAL PATCH TP SCH (21:39)
[2017-07-18] MEDS: ACETAMINOPHEN 325 MG TABLET (FP) PO PRN ×3 (03:15→21:23)
[2017-07-18] MEDS: oxyCODONE HCL 5 MG TABLET PO PRN ×5 (03:15→21:23)
[2017-07-18] MEDS: INSULIN SLIDING SCALE (NOVOLOG) 1 VIAL SQ SCH ×4 (06:03→21:27)
[2017-07-18] MEDS: INSULIN DETEMIR 100 UNITS/ML MDV SQ SCH (06:38)
[2017-07-18] MEDS ORDERED: PT OWN MED DRAWER 7, Y5N ONE (09:02)
[2017-07-18] MEDS: AMINO ACIDS/PROTEIN HYDROLYS 30 ML LIQUID.PKT PO SCH ×2 (09:05→17:21)
[2017-07-18] MEDS: LISINOPRIL 20 MG TABLET (FP) PO SCH (09:05)
[2017-07-18] MEDS: FLUCONAZOLE 100 MG TABLET (UD) PO SCH (09:05)
[2017-07-18] MEDS: FE POLYSAC/CYANOCOBAL/FA COMBO CAPSULE PO SCH (09:06)
[2017-07-18] MEDS: RANITIDINE HCL 150 MG TABLET (FP) PO SCH (09:07)
[2017-07-18] MEDS: morphine SO4 SUSTAINED ACTING 15 MG TABLET.SA PO SCH ×2 (09:09→22:43)
[2017-07-18] MEDS: GABAPENTIN 300 MG CAPSULE (FP) PO SCH ×2 (09:12→21:29)
[2017-07-18] MEDS: HEPARIN NA (PORCINE) 5,000 UNITS/ML 1ML VIAL SQ SCH ×2 (09:40→21:29)
--- NOTE | 2017-07-18 12:46 | PN ---
Physical Exam: SUBJECTIVE: Patient seen and examined at the bedside. He states he had vomited overnight but now has since resolved. Denies any malaise, denies fever or chills. Eager to start rehab @ [facility] OBJECTIVE: Patient for discharge tomorrow @ 9am. Had low grade fever overnight, appears well, non toxic appearing No fevers since Chest xray read, no pulmonary disease Blood cultures sent Vital Signs Period Temp Pulse Resp BP Sys/Monet Pulse Ox Last 24 Hr 97.8 F-100.8 F 92-112 18-20 118-136/69-92 100 GENERAL: The patient is awake, alert, and fully oriented, in no acute distress. HEAD: Normal with no signs of trauma. EYES: PERRL, extraocular movements intact, sclera anicteric, conjunctiva clear. No ptosis. ENT: Ears normal, nares patent, oropharynx clear without exudates, moist mucous membranes. NECK: Trachea midline, full range of motion, supple. LUNGS: Breath sounds equal, clear to auscultation bilaterally, no accessory muscle use. HEART: Regular rate and rhythm ABDOMEN: Soft, nontender, nondistended, normoactive bowel sounds, no guarding, no rebound, no hepatosplenomegaly, no masses. EXTREMITIES: wound vac in place, Left BKA - wound vac to continue at [facility] facility NEUROLOGICAL: Normal speech, gait not observed. PSYCH: Normal mood, normal affect. SKIN: Warm, dry, normal turgor, no rashes or lesions noted Laboratory Results - last 24 hr 07/17/17 07/17/17 07/17/17 14:15 16:46 21:46 POC Glucometer 100 91 102 07/18/17 06:02 POC Glucometer 123 Active Medications Generic Name Dose Route Start Last Admin Trade Name Freq PRN Reason Stop Dose Admin Acetaminophen 650 mg 07/12/17 13:18 07/18/17 09:07 Tylenol - PO 650 mg Q4H PRN Administration FEVER OR PAIN Amino Acids 30 ml 07/12/17 17:30 07/18/17 09:05 Prosource No Carb Liquid Pkt PO 30 ml BID@0800,1730 JESUS Administration B12/Folic Ac/Intrin Fact/Iron/Vit C 1 each 07/13/17 10:00 07/18/17 09:06 Niferex-150 Forte - PO 1 each DAILY JESUS Administration Diphenhydramine HCl 25 mg 07/12/17 13:18 Benadryl Injection - IVPB Q8H PRN NAUSEA Docusate Sodium 100 mg 07/12/17 13:18 Colace - PO Q8H PRN CONSTIPATION Fluconazole 100 mg 07/17/17 11:45 07/18/17 09:05 Diflucan - PO 100 mg DAILY JESUS Administration Gabapentin 300 mg 07/15/17 10:00 07/18/17 09:12 Neurontin - PO 300 mg DAILY JESUS Administration Gabapentin 900 mg 07/14/17 22:00 07/17/17 21:50 Neurontin - PO 900 mg HS JESUS Administration Heparin Sodium (Porcine) 5,000 unit 07/17/17 22:00 07/17/17 21:38 Heparin - SQ 5,000 unit BID JESUS Administration IV Flush 8 ml 07/17/17 11:31 Picc Line Flush IVPUSH PRN PRN Protocol Sodium Chloride 1,000 mls @ 75 mls/hr 07/12/17 13:18 07/17/17 14:06 Normal Saline - IV Not Given ASDIR [facility] Ceftriaxone Sodium 2 gm/ 100 mls @ 200 mls/hr 07/17/17 11:45 07/17/17 14:31 Dextrose IVPB 200 mls/hr DAILY JESUS Administration Insulin Aspart 1 vial 07/12/17 16:30 07/18/17 06:03 Novolog Vial Sliding Scale - SQ Not Given ACHS JESUS Protocol Insulin Detemir 15 units 07/13/17 07:00 07/18/17 06:38 Levemir Vial SQ 15 unit AM JESUS Administration Lidocaine 1 patch 07/12/17 22:00 07/17/17 21:39 Lidoderm Patch - TP 1 patch HS JESUS Administration Lisinopril 30 mg 07/13/17 10:00 07/18/17 09:05 Prinivil PO 30 mg DAILY JESUS Administration Metoclopramide HCl 10 mg 07/12/17 13:18 Reglan Injection - IVPB Q8H PRN NAUSEA AND/OR VOMITING Miscellaneous 1 each 07/16/17 21:16 07/17/17 10:01 Lidoderm Patch Removal MC 1 each DAILY@1000 JESUS Administration Morphine Sulfate 15 mg 07/14/17 12:00 07/18/17 09:09 Ms Contin - PO 15 mg BID JESUS Administration Multi-Ingredient Ointment 1 applic 07/12/17 22:00 07/17/17 22:57 Zinc Oxide TP 1 applic BID JESUS Administration Oxycodone HCl 10 mg 07/15/17 14:26 07/18/17 09:08 Roxicodone - PO 10 mg Q4H PRN Administration PAIN Ranitidine HCl 150 mg 07/13/17 10:00 07/18/17 09:07 Zantac - PO 150 mg DAILY JESUS Administration ASSESSMENT/PLAN: Patient is a 47 year old male with a significant past medical history of diabetes mellitus, multiple soft tissue infections and left BKA. He comes to the ED on 06/17/2017 complaining of left leg pain for the past week. The pain was located behind left knee and radiates up the posterior thigh. This pain was associated with fever, chills, nausea, vomiting and body aches. He was seeing Dr. Jennings at the wound care clinic and was undergoing hyperbaric treatment. Imagin07/10/2017: CT/Lower ext. w/o contrast shows: (1) Interval development of several large thick walled collection within the left hamstring. (2) Phlegmon and/or abscess surrounding the entire course of theleft sciatic nerve with efacement of the round fat planes, has significantly progressed since 06/18/17 (3) Large skin and soft tissue defect overlying the posterolateral inferior left thigh and left knee with surrounding skin thickening, subcutaneous fat stranding and fluid representing some combination of post- surgical changes and cellulits/phlegmon (4) Focal area of demineralization with relatively less distinct cortex in the posterolateral left tibial plateau. Focal demineralization in the lateral aspect of the lateral femoral condyle. They findings may be attributed to osteomylitis (5) Multiple large inguinal, left iliac and pelvic sidewall lymph nodes are most likely reactive. ID: Sepsis secondary to diabetic wound, resolved A/P: WBC stable, Patient as been treated with a full course of Vanco and Zosyn during hospitalization Will be discharged with Ceftriaxone 2gram daily for 2 more weeks (07/17/2017 through 07/31/2017) s/p left wound debridement with Dr. Jennings on 07/05/2017 and 07/12/2017 Patient has small amount of sero sang. drainage on wound care vac container, continue wound vac at rehab facility Monitor for labs Manage pain with Morphine BID long acting and oxycodone for breakthrough pain Neurontin for diabetic neuropathy. Endocrine: Hyperglycemia vs DKA, resolved A/P: Anion gap now closed On Levemir 15 units daily Becomes symptomatic when blood sugars go below 150, goal is to keep BS around 150-200s Cardiology: Hypertension, controlled A/P: Lisinopril uptitrated to 30mg daily on 07/03 Monitor BP Hematology: Anemia, s/p 1 unit of prbc, hmg/hct stable Renal: KENDRICK, resolved A/P: monitor daily labs F.E.N. Fluids: tolerating PO Electrolytes: monitor electrolytes Nutrition: diabetic diet/low sodium Prostat to promote wound healing Prophylaxis: DVT: heparin BID GI: pepcid, reglan Disposition: Full code. Discharge planning to rehab. Visit type - Emergency Visit Emergency Visit: Yes ED Registration Date: 06/17/17 Care time: The patient presented to the Emergency Department on the above date and was hospitalized for further evaluation of their emergent condition. - New Patient This patient is new to me today: No - Critical Care Critical Care patient: No - Discharge Referral Referred to [facility] No
[2017-07-18] MEDS: CEFTRIAXONE 2 GM in DEXTROSE 5%-WATER - 100 ML IVPB SCH (13:14)
--- NOTE | 2017-07-18 13:32 | PN ---
Progress Note, Physician History of Present Illness: doing well no issues picc line in place - Current Medication List Current Medications: Active Medications Acetaminophen (Tylenol -) 650 mg PO Q4H PRN PRN Reason: FEVER OR PAIN Last Admin: 07/18/17 09:07 Dose: 650 mg Amino Acids (Prosource No Carb Liquid Pkt) 30 ml PO BID@0800,1730 [facility] Last Admin: 07/18/17 09:05 Dose: 30 ml B12/Folic Ac/Intrin Fact/Iron/Vit C (Niferex-150 Forte -) 1 each PO DAILY [facility] Last Admin: 07/18/17 09:06 Dose: 1 each Diphenhydramine HCl (Benadryl Injection -) 25 mg IVPB Q8H PRN PRN Reason: NAUSEA Docusate Sodium (Colace -) 100 mg PO Q8H PRN PRN Reason: CONSTIPATION Fluconazole (Diflucan -) 100 mg PO DAILY [facility] Last Admin: 07/18/17 09:05 Dose: 100 mg Gabapentin (Neurontin -) 300 mg PO DAILY [facility] Last Admin: 07/18/17 09:12 Dose: 300 mg Gabapentin (Neurontin -) 900 mg PO HS [facility] Last Admin: 07/17/17 21:50 Dose: 900 mg Heparin Sodium (Porcine) (Heparin -) 5,000 unit SQ BID [facility] Last Admin: 07/17/17 21:38 Dose: 5,000 unit IV Flush (Picc Line Flush) 8 ml IVPUSH PRN PRN PRN Reason: Protocol Sodium Chloride (Normal Saline -) 1,000 mls @ 75 mls/hr IV ASDIR [facility] Last Admin: 07/17/17 14:06 Dose: Not Given Ceftriaxone Sodium 2 gm/ (Dextrose) 100 mls @ 200 mls/hr IVPB DAILY [facility] Last Admin: 07/18/17 13:14 Dose: 200 mls/hr Insulin Aspart (Novolog Vial Sliding Scale -) 1 vial SQ ACHS JESUS PRN Reason: Protocol Last Admin: 07/18/17 13:14 Dose: Not Given Insulin Detemir (Levemir Vial) 15 units SQ AM [facility] Last Admin: 07/18/17 06:38 Dose: 15 unit Lidocaine (Lidoderm Patch -) 1 patch TP HS [facility] Last Admin: 07/17/17 21:39 Dose: 1 patch Lisinopril (Prinivil) 30 mg PO DAILY [facility] Last Admin: 07/18/17 09:05 Dose: 30 mg Metoclopramide HCl (Reglan Injection -) 10 mg IVPB Q8H PRN PRN Reason: NAUSEA AND/OR VOMITING Miscellaneous (Lidoderm Patch Removal) 1 each MC DAILY@1000 [facility] Last Admin: 07/17/17 10:01 Dose: 1 each Morphine Sulfate (Ms Contin -) 15 mg PO BID [facility] Last Admin: 07/18/17 09:09 Dose: 15 mg Multi-Ingredient Ointment (Zinc Oxide) 1 applic TP BID [facility] Last Admin: 07/17/17 22:57 Dose: 1 applic Oxycodone HCl (Roxicodone -) 10 mg PO Q4H PRN PRN Reason: PAIN Last Admin: 07/18/17 13:14 Dose: 10 mg Ranitidine HCl (Zantac -) 150 mg PO DAILY [facility] Last Admin: 07/18/17 09:07 Dose: 150 mg - Objective Vital Signs: Vital Signs Temperature 97.8 F 07/18/17 05:16 Pulse Rate 92 H 07/18/17 05:16 Respiratory Rate 20 07/18/17 05:16 Blood Pressure 118/69 07/18/17 05:16 O2 Sat by Pulse Oximetry (%) 100 07/17/17 21:00 Constitutional: Yes: No Distress, Calm Cardiovascular: Yes: Regular Rate and Rhythm Respiratory: Yes: Regular, CTA Bilaterally Gastrointestinal: Yes: Normal Bowel Sounds, Soft Musculoskeletal: Yes: Other Extremities: Yes: Other Wound/Incision: Yes: Other (wound vac in place) Neurological: Yes: Alert, Oriented Psychiatric: Yes: Alert, Oriented Labs: CBC, BMP 07/17/17 08:10 07/17/17 08:10 INR, PTT INR 1.09 (0.82-1.09) 07/05/17 06:00 Assessment/Plan Problem List - Problems (1) Sepsis Code(s): A41.9 - SEPSIS, UNSPECIFIED ORGANISM (2) Abscess and cellulitis Code(s): L03.90 - CELLULITIS, UNSPECIFIED L02.91 - CUTANEOUS ABSCESS, UNSPECIFIED (3) Cellulitis and abscess of left leg Code(s): L03.116 - CELLULITIS OF LEFT LOWER LIMB L02.416 - CUTANEOUS ABSCESS OF LEFT LOWER LIMB (4) Intractable vomiting with nausea Code(s): R11.2 - NAUSEA WITH VOMITING, UNSPECIFIED Qualifiers: Vomiting type: unspecified Qualified Code(s): R11.2 - Nausea with vomiting, unspecified; R11.2 - Nausea with vomiting, unspecified (5) Noncompliance with diabetes treatment Code(s): Z91.19 - PATIENT'S NONCOMPLIANCE W OTH MEDICAL TREATMENT AND REGIMEN (6) Diabetic ulcer of lower extremity Code(s): E11.622 - TYPE 2 DIABETES MELLITUS WITH OTHER SKIN ULCER L97.909 - NON-PRS CHRONIC ULC UNSP PRT OF UNSP LOW LEG W UNSP SEVERITY lactic acidosis leukocytosis uti wound infection intramuscular abscess in the thigh plan post surgery patient doing well changed abx to ceftriaxone will need it for 2 weeks wound care rest as per primary team
[2017-07-18] MEDS: LIDOCAINE PATCH REMOVAL MC SCH (14:11)
[2017-07-18] MEDS: ZINC OXIDE 20% TOPICAL OINTMENT 30 GM TUBE TP SCH ×2 (14:11→21:30)
[2017-07-18] MEDS: SODIUM CHLORIDE 1,000 ML IV SCH (17:20)
[2017-07-18] MEDS ORDERED: oxyCODONE HCL 5 MG TABLET ONE (17:26)
--- NOTE | 2017-07-18 18:34 | DS ---
Physical Exam: SUBJECTIVE: Patient seen and examined OBJECTIVE: Vital Signs Period Temp Pulse Resp BP Sys/Monet Pulse Ox Last 24 Hr 97.8 F-98.2 F 87-95 18-20 102-163/62-80 100-100 PHYSICAL EXAM GENERAL: The patient is awake, alert, and fully oriented, in no acute distress. HEAD: Normal with no signs of trauma. EYES: PERRL, extraocular movements intact, sclera anicteric, conjunctiva clear. ENT: Ears normal, nares patent, oropharynx clear without exudates, moist mucous membranes. NECK: Trachea midline, full range of motion, supple. LUNGS: Breath sounds equal, clear to auscultation bilaterally, no wheezes, no crackles, no accessory muscle use. HEART: Regular rate and rhythm, S1, S2 without murmur, rub or gallop. ABDOMEN: Soft, nontender, nondistended, normoactive bowel sounds, no guarding, no rebound, no hepatosplenomegaly, no masses. EXTREMITIES: 2+ pulses, warm, well-perfused, no edema. NEUROLOGICAL: Cranial nerves II through XII grossly intact. Normal speech, gait not observed. PSYCH: Normal mood, normal affect. SKIN: Warm, dry, normal turgor, no rashes or lesions noted. LABS Laboratory Results - last 24 hr 07/17/17 07/18/17 21:46 06:02 POC Glucometer 102 123 HOSPITAL COURSE: Date of Admission:06/17/17 Date of Discharge: 07/18/17 Discharge Summary Reason For Visit: SEPSIS HYPOKALEMIA HYPERGLYCEMIA Current Active Problems DKA (diabetic ketoacidosis) (Acute) Diabetic neuropathy (Acute) Hyperglycemia (Acute) Hypokalemia (Acute) Leg wound, left (Acute) Pain in wound (Acute) Sepsis (Acute) Condition: Improved - Instructions Diet, Activity, Other Instructions: Mr. Bhakta: Please continue the Ceftriaxone 2gram IV antibiotics daily for another 2 weeks ( from 07/17/2017 to 07/31/17) via PICC line. Please continue the Levemir and Novolog as ordered. You will continue to use the wound vac daily on your left leg wound. Recommend labs to be done at least weekly to monitor your labs for improvement. Please call me with any questions Joyce Vaughan [facility] [phone] Referrals: Hany Nolen MD [Staff Physician] - Costa Jennings MD [Staff Physician] - Disposition: [facility] - Home Medications Comprehensive Discharge Medication List: Ambulatory Orders Oxycodone HCl/Acetaminophen [Percocet 10-325 mg Tablet] 1 each PO Q6H PRN Acetaminophen [Tylenol .Regular Strength -] 650 mg PO Q4H PRN #0 tablet Amino Acids/Protein Hydrolys [Prosource No Carb Liquid Pkt] 30 ml PO BID@0800, 1730 packet 07/17/17 Ceftriaxone [Rocephin -] 2 gm IVPB DAILY #14 vial 07/17/17 Diphenhydramine [Benadryl Injection -] 25 mg IVPB Q8H PRN #0 vial 07/17/17 Docusate Sodium [Colace -] 100 mg PO Q8H PRN #0 cap 07/17/17 Fe Polysac/Cyanocobal/FA [Niferex-150 Forte -] 1 each PO DAILY #14 cap 07/17/17 Fluconazole [Diflucan -] 100 mg PO DAILY #7 tablet 07/17/17 Gabapentin [Neurontin -] 300 mg PO DAILY #30 tab 07/17/17 Gabapentin [Neurontin -] 900 mg PO HS #30 tab 07/17/17 Heparin - 5,000 unit SQ BID vial 07/17/17 Insulin (Levemir) [Levemir Vial] 15 units SQ AM #1 vial 07/17/17 Insulin Sliding Scale [Novolog Vial Sliding Scale -] 1 vial SQ ACHS units 07/17 Lidocaine 5% Patch [Lidoderm -] 1 patch TP HS patch 07/17/17 Lidocaine Patch Removal [Lidoderm Patch Removal] 1 each MC DAILY each 07/17/17 Lidocaine Patch Removal [Lidoderm Patch Removal] 1 each MC DAILY@1000 each 02/25 Lidocaine Patch Removal [Lidoderm Patch Removal] 1 each MC DAILY@2200 each 02/25 Lisinopril [Prinivil] 30 mg PO DAILY tablet 07/17/17 Morphine *Sr* [Ms Contin -] 15 mg PO BID #60 tab MDD 2 tabs 07/17/17 Picc Line Flush [Picc Line Flush -] 8 ml IVPUSH PRN PRN #0 ml 07/17/17 Ranitidine [Zantac -] 150 mg PO DAILY tablet 07/17/17 - Discharge Referral Referred to [facility] No
[2017-07-18] MEDS: LIDOCAINE 5% TOPICAL PATCH TP SCH (21:29)
[2017-07-19] MEDS: oxyCODONE HCL 5 MG TABLET PO PRN ×2 (01:58→10:30)
[2017-07-19] MEDS: ACETAMINOPHEN 325 MG TABLET (FP) PO PRN ×2 (01:58→10:32)
[2017-07-19] MEDS ORDERED: PT OWN MED DRAWER 7, Y5N ONE (09:15)
[2017-07-19] MEDS: CEFTRIAXONE 2 GM in DEXTROSE 5%-WATER - 100 ML IVPB SCH (09:16)
[2017-07-19] MEDS: AMINO ACIDS/PROTEIN HYDROLYS 30 ML LIQUID.PKT PO SCH (09:16)
[2017-07-19] MEDS: GABAPENTIN 300 MG CAPSULE (FP) PO SCH (09:16)
[2017-07-19] MEDS: HEPARIN NA (PORCINE) 5,000 UNITS/ML 1ML VIAL SQ SCH (09:17)
[2017-07-19] MEDS: FE POLYSAC/CYANOCOBAL/FA COMBO CAPSULE PO SCH (09:17)
[2017-07-19] MEDS: LISINOPRIL 20 MG TABLET (FP) PO SCH (09:17)
[2017-07-19] MEDS: FLUCONAZOLE 100 MG TABLET (UD) PO SCH (09:17)
[2017-07-19] MEDS: morphine SO4 SUSTAINED ACTING 15 MG TABLET.SA PO SCH (09:17)
[2017-07-19] MEDS: RANITIDINE HCL 150 MG TABLET (FP) PO SCH (09:17)
[2017-07-19] MEDS: LIDOCAINE PATCH REMOVAL MC SCH (09:18)
[2017-07-19] MEDS: ZINC OXIDE 20% TOPICAL OINTMENT 30 GM TUBE TP SCH (09:19)
[2017-07-19 11:12] VITALS: BP 118/75; PULSE 93; TEMP 97.6
[2017-07-19] MEDS: INSULIN SLIDING SCALE (NOVOLOG) 1 VIAL SQ SCH (11:20)
== END 2017-07-19 11:34 | DRG 710 ==
LOC: JER 23:12 → JERBED 06-17 03:28 → J2W 06-17 08:38 → JICU 06-17 14:09 → J7W 06-19 18:04 → JICU 06-20 12:24 → J7W 06-20 14:47
PROVIDERS: ADMIT Internal Medicine; ATTEND Internal Medicine
PROC: 0J9M0ZZ Drainage of Left Upper Leg Subcutaneous Tissue and Fascia, Open Approach (ICD-10-PCS; principal; 2017-07-05 09:00)
PROC: 0K9 Muscles, Drainage (ICD-10-PCS; 2017-07-12)
PROC: 30233N1 Transfusion of Nonautologous Red Blood Cells into Peripheral Vein, Percutaneous Approach (ICD-10-PCS; 2017-07-15)
PROC: 02HV33Z Insertion of Infusion Device into Superior Vena Cava, Percutaneous Approach (ICD-10-PCS; 2017-07-18)
PROC: B518ZZA Fluoroscopy of Superior Vena Cava, Guidance (ICD-10-PCS; 2017-07-18)
DX: A41.9 Sepsis, unspecified organism (principal); N17.9 Acute kidney failure, unspecified; E87.6 Hypokalemia; E87.2 Acidosis; R65.20 Severe sepsis without septic shock; E87.1 Hypo-osmolality and hyponatremia; R11.2 Nausea with vomiting, unspecified; L03.116 Cellulitis of left lower limb; Z91.19 Patient's noncompliance with other medical treatment and regimen; E11.622 Type 2 diabetes mellitus with other skin ulcer; L97.909 Non-pressure chronic ulcer of unspecified part of unspecified lower leg with unspecified severity; D72.829 Elevated white blood cell count, unspecified; N39.0 Urinary tract infection, site not specified; I10 Essential (primary) hypertension; D64.9 Anemia, unspecified; E11.10 Type 2 diabetes mellitus with ketoacidosis without coma; E11.40 Type 2 diabetes mellitus with diabetic neuropathy, unspecified; D62 Acute posthemorrhagic anemia; E88.09 Other disorders of plasma-protein metabolism, not elsewhere classified; D47.3 Essential (hemorrhagic) thrombocythemia; E11.43 Type 2 diabetes mellitus with diabetic autonomic (poly)neuropathy; K31.84 Gastroparesis; E83.51 Hypocalcemia; E83.39 Other disorders of phosphorus metabolism; E83.42 Hypomagnesemia; Z87.891 Personal history of nicotine dependence
CPT/HCPCS: 36415; 36430; 36569; 71010-TC; 73552-TC-LT; 73560-TC-LT; 73700-TC-RT; 74000-TC; 75820-TC; 76700-TC; 77001-TC; 80048; 80053; 80307; 81003; 81015; 82150; 82607; 82668; 82728; 82746; 82784; 82803; 83036; 83540; 83550; 83605; 83615; 83735; 84100; 84155; 84165; 84484; 85025; 85027; 85044; 85610; 85651; 85730; 86140; 86334; 86850; 86900; 86901; 86922; 87040; 87070; 87076; 87077; 87081; 87086; 87186; 87205; 88300-TC; 93005; 93010; 93971-TC; 94760; 97116-GP; 97162-GP; 99285-25; C1751; G0480; J1644; P9038; P9058

== ENCOUNTER 2018-05-29 09:18 | Inpatient (IN) | payer OTHER ==
[2018-05-29 09:29] VITALS: BMI 35.2
[2018-05-29] MEDS ORDERED: SODIUM CHLORIDE 1,000 ML IV STA ×2 (09:37→11:23)
[2018-05-29] MEDS ORDERED: morphine CARPU-JECT 2 MG/1 ML DISP.SYRIN IVPUSH ONE (09:38)
[2018-05-29] MEDS ORDERED: VANCOMYCIN 1,500 MG in DEXTROSE 5%-WATER - 500 ML IVPB ONE (09:42)
[2018-05-29] MEDS ORDERED: PIPERACILLIN/TAZOB 3.375 GM 3.375 GM in DEXTROSE 5%-WATER - 50 ML IVPB SCH (09:45)
[2018-05-29] MEDS ORDERED: morphine SULFATE 4 MG/ML VIAL ONE ×2 (09:48→19:26)
[2018-05-29] MEDS ORDERED: PIPERACILLIN/TAZOB 3.375 GM 3.375 GM/50 ML BAG IVPB ONE (09:48)
--- NOTE | 2018-05-29 10:25 | PDOC ---
History of Present Illness - General Chief Complaint: Pain, Acute Stated Complaint: PAIN Time Seen by Provider: 05/29/18 09:29 History Source: Patient Exam Limitations: No Limitations - History of Present Illness Initial Comments: 05/29/18 11:00 48-year-old male presents to ED with worsening scrotal pain along with swelling redness, and chills. Patient also states elevated glucose over the past few days now reading 327 this morning. Patient states about a week ago went to [facility] and was given topical along with by mouth antibiotics for what he states was folliculitis to his left testicular region. Patient denies drainage difficulty urinating, back pain, or radiation of pain. Patient denies history of MRSA, previous similar ulcers, but is a diabetic, followed at the wound care clinic. Patient states does not have a primary care doctor and normally has his medication filled by Dr. Jennings at wound care. Timing/Duration: 1 week Severity: moderate, severe Associated Symptoms: reports: fever/chills Past History - Travel Traveled outside of the country in the last 30 days: No - Past Medical History Allergies/Adverse Reactions: Allergies Allergy/AdvReac Type Severity Reaction Status Date / Time No Known Allergies Allergy Verified 05/29/18 09:24 Home Medications: Ambulatory Orders Acetaminophen [Tylenol .Regular Strength -] 650 mg PO Q4H PRN #0 tablet Insulin (Levemir) [Levemir Vial] 15 units SQ AM #1 vial 07/17/17 Lisinopril [Prinivil] 30 mg PO DAILY tablet 07/17/17 Metoclopramide HCl 5 mg PO ASDIR 05/29/18 Pantoprazole Sodium [Protonix -] 20 mg PO DAILY 05/29/18 Anemia: No Asthma: No Cancer: No Cardiac Disorders: Yes (DVT) CVA: No COPD: No CHF: No Dementia: No Diabetes: Yes (pt denies taking any meds) GI Disorders: (REFLUX) Disorders: No HTN: Yes Hypercholesterolemia: No Liver Disease: No Seizures: No Thyroid Disease: No - Surgical History Abdominal Surgery: No Appendectomy: No Cardiac Surgery: No Cholecystectomy: No Lung Surgery: No Neurologic Surgery: No Orthopedic Surgery: Yes (lt leg amputation ( lt BKA) 4 years ago) - Family Disease History Family Disease History: Diabetes: Father - Immunization History Immunization Up to Date: Yes - Suicide/Smoking/Psychosocial Hx Smoking Status: No Smoking History: Never smoked Have you smoked in the past 12 months: No Number of Cigarettes Smoked Daily: 0 If you are a former smoker, when did you quit?: 10 years ago Cigars Per Day: 0 Information on smoking cessation initiated: No Hx Alcohol Use: No Drug/Substance Use Hx: No Substance Use Type: None Hx Substance Use Treatment: No Patient Lives Alone: No Lives with/in: spouse/SO Review of Systems - Review of Systems Able to Perform ROS?: No Constitutional: Yes: Chills HEENTM: No: Symptoms Reported Respiratory: No: Symptoms reported Cardiac (ROS): No: Symptoms Reported ABD/GI: No: Symptoms Reported : Yes: Testicular Mass, Testicular Swelling, Testicular Pain Musculoskeletal: No: Symptoms Reported Integumentary: Yes: Change in Color, Lumps Neurological: No: Symptoms reported Hematologic/Lymphatic: No: Symptoms Reported *Physical Exam - Vital Signs Last Vital Signs Temp Pulse Resp BP Pulse Ox 98.7 F 111 H 16 133/91 100 05/29/18 09:25 05/29/18 09:25 05/29/18 09:25 05/29/18 09:25 05/29/18 09:25 - Physical Exam General Appearance: Yes: Nourished, Appropriately Dressed, Mild Distress Respiratory/Chest: positive: Lungs Clear, Normal Breath Sounds. negative: Respiratory Distress, Accessory Muscle Use Cardiovascular: positive: Regular Rhythm, Tachycardia. negative: Murmur Vascular Pulses: Dorsalis-Pedis (R): 2+ Gastrointestinal/Abdominal: positive: Soft. negative: Tenderness Male Genitalia: positive: other (Noted firm erythematous, warm, and edematous scrotum. Noted white epithelial area over the left testicle measuring 2 x 1 cm without drainage. Palpable testicles x 2. Penis intact. No urethral drainage) Musculoskeletal: negative: CVA Tenderness Extremity: positive: Normal Capillary Refill Integumentary: positive: Erythema, Swelling Neurologic: positive: Motor Strength 5/5 (ambulatory with cane) Heart Score/ECG Review - ECG Intrepretation Rhythm: Regular Rhythm (rate 96. Accelerated junctional rhythm. No ST elevation or depression noted) - ECG Impressions Non-specific ST Elevation: No ED Treatment Course - LABORATORY CBC & Chemistry Diagram: 06/02/18 05:30 06/02/18 05:30 - RADIOLOGY Radiology Studies Ordered: Category Date Time Status CHEST X-RAY PORTABLE* [RAD] Stat Radiology 05/29/18 09:37 Ordered SCROTUM AND CONTENTS US [US] Stat Ultrasound 05/29/18 09:37 Ordered Medical Decision Making - Medical Decision Making 05/29/18 10:29 Patient with scrotal abscess concerning for sepsis, DKA and electrolyte derangement. Patient ordered for septic workup including type and screen if surgery is required. Patient ordered for vancomycin and Zosyn. Patient also ordered for morphine and scrotal ultrasound 05/29/18 11:31 Laboratory Tests 05/29/18 05/29/18 05/29/18 10:23 10:23 10:23 WBC 17.5 H Hgb 10.2 L Hct 31.8 L D Neutrophils % 87.6 H PT with INR 11.40 INR 1.01 PTT (Actin FS) 29.6 Sodium 135 L Potassium 2.6 L* Chloride 104 Carbon Dioxide 16 L Anion Gap 15 BUN 25 H Creatinine 2.2 H Creat Clearance w eGFR 32.24 Random Glucose 457 H* Lactic Acid Calcium 7.7 L AST 6 L ALT 9 L Alkaline Phosphatase 208 H Troponin I < 0.02 Total Protein 5.7 L Albumin 2.1 L 05/29/18 10:23 WBC Hgb Hct Neutrophils % PT with INR INR PTT (Actin FS) Sodium Potassium Chloride Carbon Dioxide Anion Gap BUN Creatinine Creat Clearance w eGFR Random Glucose Lactic Acid 2.0 Calcium AST ALT Alkaline Phosphatase Troponin I Total Protein Albumin Patient ordered for potassium replacement along with a second liter of normal saline. VBG pending. Acetone added. 05/29/18 11:32 Ultrasound shows normal testicular sonogram with no evidence of torsion or acute pathology. Extensive left scrotal thickening consistent with infection with ill-defined echogenic material. No discrete fluid collection consistent with a drainable abscess identified. 05/29/18 11:59 05/29/18 12:56 Laboratory Tests 05/29/18 12:03 Magnesium 1.9 Laboratory Tests 05/29/18 12:03 Acetone, Qual Negative Patient's BGM was 423. Patient ordered for 8 units of insulin. 05/29/18 14:21 Laboratory Tests 05/29/18 05/29/18 14:57 15:10 Lactic Acid 2.1 H Phosphorus Pending *DC/Admit/Observation/Transfer Diagnosis at time of Disposition: Cellulitis, Hypokalemia, Sepsis, KENDRICK (acute kidney injury) - Discharge Dispostion Decision to Admit order: Yes - Referrals - Patient Instructions - Post Discharge Activity
[2018-05-29 10:29] LABS: BASO % 0.3 % (0-2.0); EOS % 2.7 % (0-4.5); HEMATOCRIT 31.8 % (35.4-49); HEMOGLOBIN 10.2 GM/dL (11.7-16.9); LYMPH % 4.1 % (8-40); MCH 26.5 pg (25.7-33.7); MCHC 32.1 g/dl (32.0-35.9); MEAN CELL VOLUME 82.5 fl (80-96); MEAN PLT VOLUME 8.2 fl (7.5-11.1); MONO % 5.3 % (3.8-10.2); NEUT % 87.6 % (42.8-82.8); PLATELET COUNT 336 K/MM3 (134-434); RBC 3.86 M/mm3 (4.00-5.60); RDW 16.4 % (11.9-15.9); WHITE BLOOD COUNT 17.5 K/mm3 (4.0-10.0)
[2018-05-29 10:42] LABS: INR 1.01 (0.83-1.09); PROTHROMBIN TIME (PATIENT) 11.4 SEC (9.7-13.0)
[2018-05-29 10:45] LABS: ACTIVATED PTT 29.6 SECONDS (25.2-36.5)
[2018-05-29 11:07] LABS: ALBUMIN 2.1 g/dl (3.4-5.0); ANION GAP 15 MMOL/L (8-16); BILIRUBIN,TOTAL 0.6 mg/dL (0.2-1); BLOOD UREA NITROGEN 25 mg/dL (7-18); CALCIUM 7.7 mg/dL (8.5-10.1); CHLORIDE 104 mmol/L (98-107); CO2 16 mmol/L (21-32); CREATININE 2.2 mg/dL (0.55-1.3); SGOT/AST 6 U/L (15-37); SGPT/ALT 9 U/L (13-61); SODIUM 135 mmol/L (136-145); TOT PROT 5.7 g/dl (6.4-8.2)
[2018-05-29 11:10] LABS: ALK PHOS 208 U/L (45-117)
[2018-05-29 11:16] LABS: GLUCOSE,RANDOM 457 mg/dL (74-106); POTASSIUM 2.6 mmol/L (3.5-5.1)
[2018-05-29] MEDS ORDERED: POTASSIUM CHLORIDE TABS 20 MEQ TABLET.ER (FP) PO ONE ×2 (11:22→11:38)
[2018-05-29 11:35] LABS: VENOUS PH 7.3 (7.32-7.42); VENOUS PO2 45.5 mmHg (28-48)
[2018-05-29] MEDS ORDERED: KCL 10 MEQ IVPB 10 MEQ/100 ML INFUS.BAG IVPB ONE ×3 (11:38→16:13)
[2018-05-29] MEDS: KCL 10 MEQ IVPB 10 MEQ/100 ML INFUS.BAG IVPB SCH ×3 (11:54→16:17)
[2018-05-29] MEDS ORDERED: HYDROmorphone HCL CARPU-JECT 2 MG/1 ML DISP.SYRIN IVPUSH ONE (12:17)
[2018-05-29] MEDS ORDERED: HYDROmorphone HCl 2 MG/ML VIAL ONE (12:37)
--- NOTE | 2018-05-29 12:59 | PDOC ---
*Physical Exam - Vital Signs Last Vital Signs Temp Pulse Resp BP Pulse Ox 98.5 F 88 18 141/85 99 05/29/18 12:54 05/29/18 12:54 05/29/18 12:54 05/29/18 12:54 05/29/18 12:54 ED Treatment Course - LABORATORY CBC & Chemistry Diagram: 05/29/18 10:23 05/29/18 10:23 - ADDITIONAL ORDERS Additional order review: Laboratory Results 05/29/18 05/29/18 05/29/18 12:03 11:15 10:23 PT with INR INR PTT (Actin FS) VBG pH 7.30 L POC VBG pCO2 39.0 POC VBG pO2 45.5 Mixed VBG HCO3 18.7 L Sodium Potassium Chloride Carbon Dioxide Anion Gap BUN Creatinine Creat Clearance w eGFR Random Glucose Lactic Acid 2.0 Calcium Magnesium 1.9 Total Bilirubin AST ALT Alkaline Phosphatase Troponin I Total Protein Albumin 05/29/18 05/29/18 10:23 10:23 PT with INR 11.40 INR 1.01 PTT (Actin FS) 29.6 VBG pH POC VBG pCO2 POC VBG pO2 Mixed VBG HCO3 Sodium 135 L Potassium 2.6 L* Chloride 104 Carbon Dioxide 16 L Anion Gap 15 BUN 25 H Creatinine 2.2 H Creat Clearance w eGFR 32.24 Random Glucose 457 H* Lactic Acid Calcium 7.7 L Magnesium Total Bilirubin 0.6 AST 6 L ALT 9 L Alkaline Phosphatase 208 H Troponin I < 0.02 Total Protein 5.7 L Albumin 2.1 L 05/29/18 10:23 RBC 3.86 L MCV 82.5 MCHC 32.1 RDW 16.4 H MPV 8.2 D Neutrophils % 87.6 H Lymphocytes % 4.1 L D Monocytes % 5.3 Eosinophils % 2.7 Basophils % 0.3 - Medications Given in the ED: ED Medications Discontinued Medications Generic Name Dose Route Start Last Admin Trade Name Freq PRN Reason Stop Dose Admin Hydromorphone HCl 1 mg 05/29/18 12:17 05/29/18 12:44 Dilaudid Injection - IVPUSH 05/29/18 12:18 1 mg ONCE ONE Administration Sodium Chloride 1,000 mls @ 1,000 mls/hr 05/29/18 09:37 05/29/18 11:06 Normal Saline - IV 05/29/18 10:36 1,000 mls/hr ASDIR STA Administration Vancomycin HCl 1,500 mg/ 500 mls @ 250 mls/hr 05/29/18 09:42 05/29/18 12:22 Dextrose IVPB 05/29/18 11:41 250 mls/hr ONCE ONE Administration Protocol Morphine Sulfate 4 mg 05/29/18 09:38 05/29/18 10:10 Morphine Injection - IVPUSH 05/29/18 09:39 4 mg ONCE ONE Administration Potassium Chloride 40 meq 05/29/18 11:22 05/29/18 11:54 K-Dur - PO 05/29/18 11:23 40 meq ONCE ONE Administration Medical Decision Making - Medical Decision Making 05/29/18 12:55 Patient seen and evaluated with the nurse practitioner. I agree with the overall evaluation, assessment, and management with the following summary of visit: 48-year-old male with worsening abscess and cellulitis, presents with sepsis based on white blood cell count and tachycardia. Comfortable seated by acute renal insufficiency and metabolic disarray with hypokalemia, lactate 2. Received antibiotics and IV fluids, admitted for further care. *DC/Admit/Observation/Transfer Diagnosis at time of Disposition: Cellulitis, Hypokalemia, Sepsis, KENDRICK (acute kidney injury) - Referrals - Patient Instructions - Post Discharge Activity
[2018-05-29] MEDS ORDERED: SODIUM CHLORIDE 1,000 ML IV SCH (13:15)
--- NOTE | 2018-05-29 13:24 | HP ---
<Abdullahi Kearns - Last Filed: 05/30/18 14:02> CHIEF COMPLAINT: testicular pain PCP: none HISTORY OF PRESENT ILLNESS: Patient is a 48 yo Obese m, with a pmhx of uncontrolled diabetes (admits he is not compliant), L BKA, multiple soft tissue infections, presented to the ED because of L testicular pain and swelling that started May 19. He describes the pain as 10/10 and non radiating and only localized to the L testicle. He said he went to [facility] last week but left AMA because they were too busy. He ended up going to an urgent care and told him he has folliulitis from an ingrown hair. They gave him an unknown cream with no improvement in pain and swelling. Patient says he had a fever of 101 this morning with chills. He says he routinely sees Dr. Jennings for wound care. He denies back pain, back pain, nausea, vomiting, sob, chest pain, diarrhea, headaches, diarrhea, weight changes, dysuria, frequency, urgency, hesitancy, hematuria, flank pain. ER course was notable for: (1) Testicular u/a shows normal testicular sonogram with no evidence of torsion or acute pathology. Extensive left scrotal thickening consistent with infection with ill-defined echogenic material. No discrete fluid collection consistent with a drainable abscess identified. (2) WBC 17.5, tachy 111 (3) Glucose 457, Potassium 2.6 (4) Vanc, Zosyn Recent Travel: denies PAST MEDICAL HISTORY: per hpi Social History: Smoking: denies Alcohol: denies Drugs: denies Family History: Allergies No Known Allergies Allergy (Verified 05/29/18 09:24) HOME MEDICATIONS: Home Medications Medication Instructions Recorded Acetaminophen [Tylenol .Regular 650 mg PO Q4H PRN #0 tablet 07/17/17 Strength -] Insulin (Levemir) [Levemir Vial] 15 units SQ AM #1 vial 07/17/17 Lisinopril [Prinivil] 30 mg PO DAILY tablet 07/17/17 Metoclopramide HCl 5 mg PO ASDIR 05/29/18 Pantoprazole Sodium [Protonix -] 20 mg PO DAILY 05/29/18 REVIEW OF SYSTEMS CONSTITUTIONAL: fevers chills Absent: diaphoresis, generalized weakness, malaise, loss of appetite, weight change HEENT: Absent: rhinorrhea, nasal congestion, throat pain, throat swelling, difficulty swallowing, mouth swelling, ear pain, eye pain, visual changes CARDIOVASCULAR: Absent: chest pain, syncope, palpitations, irregular heart rate, lightheadedness , peripheral edema RESPIRATORY: Absent: cough, shortness of breath, dyspnea with exertion, orthopnea, wheezing, stridor, hemoptysis GASTROINTESTINAL: Absent: abdominal pain, abdominal distension, nausea, vomiting, diarrhea, constipation, melena, hematochezia GENITOURINARY: Absent: dysuria, frequency, urgency, hesitancy, hematuria, flank pain, genital pain MUSCULOSKELETAL: Absent: myalgia, arthralgia, joint swelling, back pain, neck pain SKIN: Absent: rash, itching, pallor NEUROLOGIC: Absent: headache, focal weakness or paresthesias, dizziness, unsteady gait, seizure, mental status changes, bladder or bowel incontinence PSYCHIATRIC: Absent: anxiety, depression, suicidal or homicidal ideation, hallucinations. PHYSICAL EXAMINATION Vital Signs - 24 hr 05/29/18 05/29/18 09:25 12:54 Temperature 98.7 F 98.5 F Pulse Rate 111 H Pulse Rate [ 88 Left Radial] Respiratory 16 18 Rate Blood Pressure 133/91 Blood Pressure 141/85 [Right Arm] O2 Sat by Pulse 100 99 Oximetry (%) GENERAL: obese, in NAD HEAD: Normal with no signs of trauma. EYES: Pupils equal, round and reactive to light, extraocular movements intact, sclera anicteric EARS, NOSE, THROAT: oropharynx clear without exudates. Moist mucous membranes. NECK: without lymphadenopathy, JVD, or masses. LUNGS: Breath sounds equal, clear to auscultation bilaterally. HEART: Regular rate and rhythm, normal S1 and S2 without murmur, rub or gallop. ABDOMEN: obese, nontender, not distended, normoactive bowel sounds, no guarding , no rebound, no masses. MUSCULOSKELETAL: Normal range of motion at all joints. No CVA tenderness. UPPER EXTREMITIES: 2+ pulses, warm. Scar on R arm from skin graft. No peripheral edema. LOWER EXTREMITIES: L BKA, 2+ pulses throughout , No peripheral edema on R NEUROLOGICAL: Cranial nerves II-XII intact. PSYCHIATRIC: Cooperative. Good eye contact. Appropriate mood and affect. : L testicular swelling w/ erythema and warm. Tender to palpation to L teste. No tenderness to R testicle. L testicular lesion 1-2cm with no drainage. Laboratory Results - last 24 hr 05/29/18 05/29/18 05/29/18 10:23 10:23 10:23 WBC 17.5 H RBC 3.86 L Hgb 10.2 L Hct 31.8 L D MCV 82.5 MCH 26.5 D MCHC 32.1 RDW 16.4 H Plt Count 336 D MPV 8.2 D Absolute Neuts (auto) 15.3 H Neutrophils % 87.6 H Lymphocytes % 4.1 L D Monocytes % 5.3 Eosinophils % 2.7 Basophils % 0.3 Nucleated RBC % 0 PT with INR 11.40 INR 1.01 PTT (Actin FS) 29.6 VBG pH POC VBG pCO2 POC VBG pO2 Mixed VBG HCO3 Sodium 135 L Potassium 2.6 L* Chloride 104 Carbon Dioxide 16 L Anion Gap 15 BUN 25 H Creatinine 2.2 H Creat Clearance w eGFR 32.24 Random Glucose 457 H* Lactic Acid Calcium 7.7 L Magnesium Total Bilirubin 0.6 AST 6 L ALT 9 L Alkaline Phosphatase 208 H Troponin I < 0.02 Total Protein 5.7 L Albumin 2.1 L 05/29/18 05/29/18 05/29/18 10:23 11:15 12:03 WBC RBC Hgb Hct MCV MCH MCHC RDW Plt Count MPV Absolute Neuts (auto) Neutrophils % Lymphocytes % Monocytes % Eosinophils % Basophils % Nucleated RBC % PT with INR INR PTT (Actin FS) VBG pH 7.30 L POC VBG pCO2 39.0 POC VBG pO2 45.5 Mixed VBG HCO3 18.7 L Sodium Potassium Chloride Carbon Dioxide Anion Gap BUN Creatinine Creat Clearance w eGFR Random Glucose Lactic Acid 2.0 Calcium Magnesium 1.9 Total Bilirubin AST ALT Alkaline Phosphatase Troponin I Total Protein Albumin ASSESSMENT/PLAN: 48 yo Obese m, with a pmhx of uncontrolled diabetes (admits he is not compliant) , L BKA, multiple soft tissue infections, presentedwith L testicular pain and swelling. #Sepsis 2/2 to L testicular Abcscess/cellulitis -Leuckocytosis 17.5, tachycardic -IV fluids @ 100ml/hour -IV abx: Vanc/Zosyn -ID consulted: Dr Nolen -pending urine/blood cultures -pending wound cultures of L testicle -morphine 2 q4h for pain control #Hyperglycemia -noncompliant with insulin -ISS -BGM #KENDRICK -likely pre renal -IV fluids -avoid neprhotoxins -hold eloise -monitor #Hypokalemia -2.6 -replete -monitor #Anemia -at baseline compared to last admission -fu iron studies #FEN -normal saline -monitor lytes -diabetic diet #DVT -lovenox Visit type - Emergency Visit Emergency Visit: Yes ED Registration Date: 05/29/18 Care time: The patient presented to the Emergency Department on the above date and was hospitalized for further evaluation of their emergent condition. - New Patient This patient is new to me today: Yes Date on this admission: 05/30/18 - Critical Care Critical Care patient: No Hospitalist Screening - Colonoscopy Questionnaire Colonoscopy Questionnaire: Colonoscopy Questionnaire - Patient: 50 - 75 years old and never had a screening colonoscopy: Unknown History of colon or rectal polyps, or CA: Unknown History of IBD, Crohn's disease or UC: Unknown History of abdominal radiation therapy as a child: Unknown - Relative: 1 with colon or rectal CA, or polyps at age 60 or younger: Unknown Colon or rectal CA diagnosed at age 45 or younger: Unknown Multiple relatives with colon or rectal CA: Unknown - Outcome: Screening Result: Negative Screen <Chi Piedra - Last Filed: 06/06/18 17:32> Hospitalist Screening - Colonoscopy Questionnaire Colonoscopy Questionnaire: Colonoscopy Questionnaire
[2018-05-29] MEDS ORDERED: INSULIN REGULAR HUMAN 100 UNITS/ML *VIAL SQ ONE (14:20)
[2018-05-29] MEDS ORDERED: INSULIN (NOVOLOG MIX 70/30) 100 UNITS/ML MDV SQ ONE (14:23)
[2018-05-29] MEDS ORDERED: INSULIN REGULAR HUMAN 100 UNITS/ML *VIAL ONE (14:28)
--- NOTE | 2018-05-29 14:30 | CON.ID ---
Consult Consult Specialty:: infectious diseases Reason for Consultation:: scrotal abscess/induration/phlegmon - History of Present Illness Chief Complaint: pain and swelling in scrotal region History of Present Illness: 48 yo Obese m, with a pmhx of uncontrolled diabetes (admits he is not compliant) , L BKA, multiple soft tissue infections, presented to the ED because of L testicular pain and swelling that started May 19. He describes the pain as 10/10 and non radiating and only localized to the L testicle. He said he went to [facility] last week but left AMA because they were too busy. He ended up going to an urgent care and told him he has folliulitis from an ingrown hair. They gave him an unknown cream with no improvement in pain and swelling. Patient says he had a fever of 101 this morning with chills. He denies back pain, back pain, nausea, vomiting, sob, chest pain, diarrhea, headaches, diarrhea, weight changes, dysuria, frequency, urgency, hesitancy, hematuria, flank pain. - History Source History Provided By: Patient Limitations to Obtaining History: No Limitations - Past Medical History Cardio/Vascular: Yes: HTN, Hyperlipdemia Gastrointestinal: Yes: GERD Infectious Disease: Yes: MRSA (several years ago) Musculoskeletal: Yes: Other (left thigh pain) Endocrine: Yes: Diabetes Mellitus Dermatology: Yes: Cellulitis (mrsa) - Past Surgical History Past Surgical History: Yes: Amputation (left BKA) - Alcohol/Substance Use Hx Alcohol Use: No - Smoking History Smoking history: Never smoked Have you smoked in the past 12 months: No Aproximately how many cigarettes per day: 0 If you are a former smoker, when did you quit?: 10 years ago - Social History Usual Living Arrangement: With Spouse ADL: Independent History of Recent Travel: No Home Medications - Allergies Allergies/Adverse Reactions: Allergies Allergy/AdvReac Type Severity Reaction Status Date / Time No Known Allergies Allergy Verified 05/29/18 09:24 - Home Medications Home Medications: Ambulatory Orders Pantoprazole Sodium [Protonix -] 20 mg PO DAILY 05/29/18 Amlodipine Besylate [Norvasc -] 10 mg PO DAILY #30 tablet 06/06/18 Amoxicillin/Potassium Clav [Augmentin 500-125 Tablet] 1 each PO BID #20 tablet 06/06/18 Insulin (Levemir) [Levemir Vial] 10 units SQ AM #30 syringe 06/06/18 Labetalol HCl [Normodyne -] 100 mg PO BID #60 tablet 06/06/18 Family Disease History - Family Disease History Family Disease History: Diabetes: Father Review of Systems - Review of Systems Constitutional: reports: No Symptoms Eyes: reports: No Symptoms HENT: reports: No Symptoms Neck: reports: No Symptoms Cardiovascular: reports: No Symptoms Respiratory: reports: No Symptoms Gastrointestinal: reports: No Symptoms Genitourinary: reports: Other (scrotal swelling) Musculoskeletal: reports: No Symptoms Integumentary: reports: No Symptoms Neurological: reports: No Symptoms Endocrine: reports: No Symptoms Hematology/Lymphatic: reports: No Symptoms Psychiatric: reports: No Symptoms Physical Exam Vital Signs: Vital Signs Temperature 98.5 F 05/29/18 12:54 Pulse Rate 88 05/29/18 12:54 Respiratory Rate 18 05/29/18 12:54 Blood Pressure 141/85 05/29/18 12:54 O2 Sat by Pulse Oximetry (%) 99 05/29/18 12:54 Constitutional: Yes: Well Nourished, Calm, Moderate Distress Eyes: Yes: Conjunctiva Clear HENT: Yes: Atraumatic, Normocephalic Neck: Yes: Supple, Trachea Midline Cardiovascular: Yes: Regular Rate and Rhythm Respiratory: Yes: Regular, CTA Bilaterally Gastrointestinal: Yes: Normal Bowel Sounds, Soft Renal/: Yes: Other (scrotal swelling,induration erythema) Musculoskeletal: Yes: Other Extremities: Yes: Other Integumentary: Yes: Erythema Neurological: Yes: Alert, Oriented Psychiatric: Yes: Alert, Oriented Labs: CBC, BMP 05/29/18 10:23 05/29/18 10:23 Imaging - Results Chest X-ray: Report Reviewed, Image Reviewed Ultrasound: Report Reviewed, Image Reviewed Assessment/Plan scrotal edema swelling pain scrotal phlegmon necrotic skin plan broad spectrum abx urology consult elevation of the scrotum close monitoring rest as per the team
--- NOTE | 2018-05-29 15:42 | PN ---
Teaching Attending Note Name of Resident: Abdullahi Kearns ATTENDING PHYSICIAN STATEMENT I saw and evaluated the patient. I reviewed the resident's note and discussed the case with the resident. I agree with the resident's findings and plan as documented. SUBJECTIVE: Patient is a 48 yo with a pmhx of T2DM (he is not compliant), Left BKA, multiple soft tissue infections, presented to the ED because of Left testicular swelling and pain that started May 19. Pain is 10/10, non radiating and only localized to the L testicle. OBJECTIVE: Vital Signs Temperature 98.5 F 05/29/18 12:54 Pulse Rate 88 05/29/18 12:54 Respiratory Rate 18 05/29/18 12:54 Blood Pressure 141/85 05/29/18 12:54 O2 Sat by Pulse Oximetry (%) 99 05/29/18 12:54 GENERAL: obese, in NAD HEAD: Normal with no signs of trauma. EYES: Pupils equal, round and reactive to light, extraocular movements intact, sclera anicteric EARS, NOSE, THROAT: oropharynx clear without exudates. Moist mucous membranes. NECK: without lymphadenopathy, JVD, or masses. LUNGS: Breath sounds equal, clear to auscultation bilaterally. HEART: Regular rate and rhythm, normal S1 and S2 without murmur, rub or gallop. ABDOMEN: obese, nontender, not distended, normoactive bowel sounds, no guarding , no rebound, no masses. MUSCULOSKELETAL: Normal range of motion at all joints. No CVA tenderness. EXTREMITIES: 2+ pulses, warm. Scar on R arm from skin graft. No peripheral edema. NEUROLOGICAL: Cranial nerves II-XII intact. PSYCHIATRIC: Cooperative. Good eye contact. Appropriate mood and affect. : Left testicular lesion 1-2cm with no drainage.right is ok. CBCD WBC 17.5 K/mm3 (4.0-10.0) H 05/29/18 10:23 RBC 3.86 M/mm3 (4.00-5.60) L 05/29/18 10:23 Hgb 10.2 GM/dL (11.7-16.9) L 05/29/18 10:23 Hct 31.8 % (35.4-49) L D 05/29/18 10:23 MCV 82.5 fl (80-96) 05/29/18 10:23 MCHC 32.1 g/dl (32.0-35.9) 05/29/18 10:23 RDW 16.4 % (11.9-15.9) H 05/29/18 10:23 Plt Count 336 K/MM3 (134-434) D 05/29/18 10:23 MPV 8.2 fl (7.5-11.1) D 05/29/18 10:23 CMP Sodium 135 mmol/L (136-145) L 05/29/18 10:23 Potassium 2.6 mmol/L (3.5-5.1) L* 05/29/18 10:23 Chloride 104 mmol/L (98-107) 05/29/18 10:23 Carbon Dioxide 16 mmol/L (21-32) L 05/29/18 10:23 Anion Gap 15 MMOL/L (8-16) 05/29/18 10:23 BUN 25 mg/dL (7-18) H 05/29/18 10:23 Creatinine 2.2 mg/dL (0.55-1.3) H 05/29/18 10:23 Creat Clearance w eGFR 32.24 (>60) 05/29/18 10:23 Random Glucose 457 mg/dL (74-106) H* 05/29/18 10:23 Calcium 7.7 mg/dL (8.5-10.1) L 05/29/18 10:23 Total Bilirubin 0.6 mg/dL (0.2-1) 05/29/18 10:23 AST 6 U/L (15-37) L 05/29/18 10:23 ALT 9 U/L (13-61) L 05/29/18 10:23 Alkaline Phosphatase 208 U/L (45-117) H 05/29/18 10:23 Total Protein 5.7 g/dl (6.4-8.2) L 05/29/18 10:23 Albumin 2.1 g/dl (3.4-5.0) L 05/29/18 10:23 CARDIAC ENZYMES Troponin I < 0.02 ng/ml (0.00-0.05) 05/29/18 10:23 Current Medications Generic Name Dose Route Start Last Admin Trade Name Freq PRN Reason Stop Dose Admin Enoxaparin Sodium 40 mg 05/30/18 10:00 Lovenox - SQ DAILY JESUS Piperacillin Sod/Tazobactam 50 mls @ 100 mls/hr 05/29/18 09:45 05/29/18 11:06 Sod 3.375 gm/ Dextrose IVPB 100 mls/hr ONCE JESUS Administration Sodium Chloride 1,000 mls @ 100 mls/hr 05/29/18 13:15 05/29/18 15:13 Normal Saline - IV 05/29/18 23:14 100 mls/hr ASDIR JESUS Administration Insulin Aspart 1 vial 05/29/18 16:30 Novolog Vial Sliding Scale - SQ ACHS JESUS Protocol Morphine Sulfate 2 mg 05/29/18 13:11 Morphine Sulfate IVPUSH Q4H PRN PAIN LEVEL 6-10 Pantoprazole Sodium 20 mg 05/30/18 10:00 Protonix - PO DAILY [facility] Home Medications Medication Instructions Recorded Acetaminophen [Tylenol .Regular 650 mg PO Q4H PRN #0 tablet 07/17/17 Strength -] Insulin (Levemir) [Levemir Vial] 15 units SQ AM #1 vial 07/17/17 Lisinopril [Prinivil] 30 mg PO DAILY tablet 07/17/17 Metoclopramide HCl 5 mg PO ASDIR 05/29/18 Pantoprazole Sodium [Protonix -] 20 mg PO DAILY 05/29/18 Testicular US: shows normal testicular sonogram with no evidence of torsion or acute pathology Extensive left scrotal thickening consistent with infection with ill-defined echogenic material ASSESSMENT AND PLAN: Patient is 48yo with pmhx of uncontrolled diabetes , L BKA, with multiple soft tissue infections, presented with L testicular pain and swelling. #Sepsis due to Left testicular cellulitis with leukocytosis , [place] culture , urine c&s, blood cx, IV antibiotic Vanco was given in ED. Will start him on Rocephin 2gm IV daily, ID consult. #T2DM uncontrolled ;noncompliant with insulin , ISS, BGM. #KENDRICK : IVF monitor , avoid Lovenox #Sever acute Hypokalemia : 2.6, will replete IV, repeat in am #Anemia: iron studies DVT px: Heparin sq since has a renal failure
--- NOTE | 2018-05-29 16:18 | EKG ---
Test Reason : Blood Pressure : / mmHG Vent. Rate : 096 BPM Atrial Rate : 096 BPM P-R Int : 000 ms QRS Dur : 084 ms QT Int : 370 ms P-R-T Axes : 000 -12 020 degrees QTc Int : 467 ms ACCELERATED JUNCTIONAL RHYTHM ABNORMAL ECG WHEN COMPARED WITH ECG OF 12-JUL-2017 09:12, JUNCTIONAL RHYTHM HAS REPLACED SINUS RHYTHM Confirmed by Elie Gonzalez ([id number]) on 05/29/2018 4:17:26 PM Referred By: Confirmed By:Elie Gonzalez
[2018-05-29] MEDS ORDERED: MORPHINE SULFATE 2 MG/ML VIAL ONE (16:19)
[2018-05-29] MEDS: MORPHINE SULFATE 2 MG/ML VIAL IVPUSH PRN ×2 (16:38→19:45)
[2018-05-29 18:47] LABS: URINE APPEARANCE CLEAR; URINE BILIRUBIN NEGATIVE (<2.0 mg/dL); URINE COLOR STRAW; URINE GLUCOSE (UA) 3+ (NEGATIVE); URINE KETONE NEGATIVE (NEGATIVE); URINE LEUK ESTERASE NEGATIVE (NEGATIVE); URINE NITRITE NEGATIVE (NEGATIVE); URINE UROBILINOGEN NEGATIVE mg/dL (0.2-1.0)
[2018-05-29 18:49] LABS: URINE MUCUS RARE; URINE PROTEIN 2+ (NEGATIVE)
[2018-05-29] MEDS: INSULIN SLIDING SCALE (NOVOLOG) 1 VIAL SQ SCH (18:53)
[2018-05-29] MEDS ORDERED: INSULIN (NOVOLOG) ASPART 100 UNITS/ML 10ML VIAL ONE (18:55)
[2018-05-29 19:21] LABS: URINE CREATININE 20.9 mg/dL (20-370)
[2018-05-29] MEDS ORDERED: PIPERACILLIN/TAZOB 3.375 GM 3.375 GM in DEXTROSE 5%-WATER - 50 ML IVPB ONE (20:43)
[2018-05-29] MEDS ORDERED: PIPERACILLIN/TAZOBACTAM 3.375 GM VIAL IVPB ONE (22:53)
[2018-05-29] MEDS ORDERED: DEXTROSE 5%-WATER - 50 ML IVPB ONE (22:53)
[2018-05-29] MEDS: HEPARIN NA (PORCINE) 5,000 UNITS/ML 1ML VIAL SQ SCH (23:00)
[2018-05-30] MEDS: MORPHINE SULFATE 2 MG/ML VIAL IVPUSH PRN ×4 (00:12→18:39)
[2018-05-30] MEDS: INSULIN SLIDING SCALE (NOVOLOG) 1 VIAL SQ SCH ×5 (00:15→21:48)
[2018-05-30] MEDS: HEPARIN NA (PORCINE) 5,000 UNITS/ML 1ML VIAL SQ SCH ×3 (06:05→21:49)
[2018-05-30 07:13] LABS: HEMATOCRIT 29.2 % (35.4-49); HEMOGLOBIN 9.4 GM/dL (11.7-16.9); MCH 26.6 pg (25.7-33.7); MCHC 32.4 g/dl (32.0-35.9); MEAN CELL VOLUME 82.3 fl (80-96); MEAN PLT VOLUME 8.1 fl (7.5-11.1); PLATELET COUNT 350 K/MM3 (134-434); RBC 3.54 M/mm3 (4.00-5.60); RDW 16.4 % (11.9-15.9); WHITE BLOOD COUNT 14.7 K/mm3 (4.0-10.0)
[2018-05-30 07:42] LABS: CHLORIDE 112 mmol/L (98-107); SODIUM 141 mmol/L (136-145)
[2018-05-30 07:50] LABS: ALBUMIN 1.8 g/dl (3.4-5.0); ALK PHOS 196 U/L (45-117); ANION GAP 10 MMOL/L (8-16); BLOOD UREA NITROGEN 19 mg/dL (7-18); CALCIUM 7.6 mg/dL (8.5-10.1); CO2 19 mmol/L (21-32); GLUCOSE,RANDOM 139 mg/dL (74-106); MAGNESIUM 1.6 mg/dL (1.8-2.4); PHOSPHOROUS 3.3 mg/dL (2.5-4.9); SGOT/AST 9 U/L (15-37); SGPT/ALT 7 U/L (13-61); TOT PROT 5.3 g/dl (6.4-8.2)
[2018-05-30] MEDS ORDERED: MORPHINE SULFATE 2 MG/ML VIAL IVPUSH ONE (08:31)
[2018-05-30] MEDS ORDERED: morphine CARPU-JECT 2 MG/1 ML DISP.SYRIN IVPUSH ONE (08:31)
[2018-05-30] MEDS ORDERED: DEXTROSE 5%-WATER 100 ML IVPB ONE (09:34)
[2018-05-30] MEDS: PANTOPRAZOLE 20 MG TABLET (FP) PO SCH (09:43)
[2018-05-30] MEDS ORDERED: ENOXAPARIN NA (PORCINE) 40 MG/0.4 ML DISP.SYRIN SQ SCH (10:00)
[2018-05-30] MEDS ORDERED: CEFTRIAXONE 2 GM in DEXTROSE 5%-WATER 100 ML IVPB SCH (10:00)
[2018-05-30] MEDS ORDERED: POTASSIUM CHLORIDE TABS 20 MEQ TABLET.ER (FP) PO ONE (10:00)
--- NOTE | 2018-05-30 11:40 | PN ---
Progress Note, Physician History of Present Illness: says he is feeling better pain has improved cheesy material noted cx report noted - Current Medication List Current Medications: Active Medications Heparin Sodium (Porcine) (Heparin -) 5,000 unit SQ TID [facility] [place] Last Admin: 05/30/18 06:05 Dose: 5,000 unit Piperacillin Sod/Tazobactam (Sod 3.375 gm/ Dextrose) 50 mls @ 100 mls/hr IVPB Q8H-IV JESUS; Protocol Insulin Aspart (Novolog Vial Sliding Scale -) 1 vial SQ ACHS JESUS; Protocol Last Admin: 05/30/18 06:09 Dose: Not Given Insulin Detemir (Levemir Vial) 15 units SQ AM [facility]ESUS Morphine Sulfate (Morphine Sulfate) 2 mg IVPUSH Q4H PRN PRN Reason: PAIN LEVEL 6-10 Last Admin: 05/30/18 06:05 Dose: 2 mg Pantoprazole Sodium (Protonix -) 20 mg PO DAILY [facility] [place] Last Admin: 05/30/18 09:43 Dose: 20 mg Potassium Chloride (Potassium Chloride Oral Liquid) 40 meq PO BID [facility] Stop: 05/30/18 22:01 - Objective Vital Signs: Vital Signs Temperature 98.0 F 05/30/18 01:57 Pulse Rate 105 H 05/30/18 01:57 Respiratory Rate 19 05/29/18 22:00 Blood Pressure 151/86 05/30/18 01:57 O2 Sat by Pulse Oximetry (%) 98 05/29/18 22:00 Constitutional: Yes: Calm, Mild Distress Cardiovascular: Yes: Regular Rate and Rhythm Respiratory: Yes: Regular, CTA Bilaterally Gastrointestinal: Yes: Normal Bowel Sounds, Soft Genitourinary: Yes: Scrotal Edema (cellulittis and infection of the scrotum improving) Musculoskeletal: Yes: WNL Extremities: Yes: WNL Labs: CBC, BMP 05/30/18 06:15 05/30/18 06:15 INR, PTT INR 1.01 (0.83-1.09) 05/29/18 10:23 Assessment/Plan patient with multiple medical problems admitted with cellulitits of scrotum with phlegmon formation with infection with multiple organism cx report noted plan will need urology to see the patient might need surgical intervention abx zosyn to continue cx results noted monitor for any fevers rest as per the team
--- NOTE | 2018-05-30 11:45 | PN ---
Physical Exam: SUBJECTIVE: Patient seen and examined at bedside. In severe pain from the scrotal infection, reports no other complaints. OBJECTIVE: Vital Signs Period Temp Pulse Resp BP Sys/Monet Pulse Ox Last 24 Hr 98.0 F-99.5 F 88-105 17-19 141-159/85-99 98-99 GENERAL: A&Ox3, in moderate distress HEAD: NC/AT, EYES: PERRLA, EOMI EARS, NOSE, THROAT: oropharynx clear, MMM NECK: supple, full ROM, no LAD, no JVD LUNGS: CTA b/l HEART: RRR no m/r/g ABDOMEN: +bs, NT, ND, obese EXTREMITIES: 2+ pulses, wwp, skin graft scar on R arm, L BKA, no edema NEUROLOGICAL: CN's, motor, and sensory systems without focal deficit, normal speech, gait not observed : L hemiscrotum swollen with 1-2cm non-draining erythematous, warm, indurated , exquisitely tender lesion; R hemiscrotum normal Laboratory Results - last 24 hr 05/29/18 05/29/18 05/29/18 09:38 10:23 11:15 WBC RBC Hgb Hct MCV MCH MCHC RDW Plt Count MPV VBG pH 7.30 L POC VBG pCO2 39.0 POC VBG pO2 45.5 Mixed VBG HCO3 18.7 L Sodium 135 L Potassium 2.6 L* Chloride 104 Carbon Dioxide 16 L Anion Gap 15 BUN 25 H Creatinine 2.2 H Creat Clearance w eGFR 32.24 POC Glucometer Random Glucose 457 H* Lactic Acid Calcium 7.7 L Phosphorus Magnesium Ferritin Total Bilirubin 0.6 AST 6 L ALT 9 L Alkaline Phosphatase 208 H Troponin I < 0.02 Total Protein 5.7 L Albumin 2.1 L Urine Color Urine Appearance Urine pH Ur Specific [place] Urine Protein Urine Glucose (UA) Urine Ketones Urine Blood Urine Nitrite Urine Bilirubin Urine Urobilinogen Ur Leukocyte Esterase Urine WBC (Auto) Urine RBC (Auto) Urine Mucus Urine Osmolality Ur Random Sodium Ur Random Potassium Ur Random Chloride Urine Creatinine Acetone, Qual Blood Type A POSITIVE Antibody Screen Negative 05/29/18 05/29/18 05/29/18 12:03 12:03 14:57 WBC RBC Hgb Hct MCV MCH MCHC RDW Plt Count MPV VBG pH POC VBG pCO2 POC VBG pO2 Mixed VBG HCO3 Sodium Potassium Chloride Carbon Dioxide Anion Gap BUN Creatinine Creat Clearance w eGFR POC Glucometer Random Glucose Lactic Acid 2.1 H Calcium Phosphorus Magnesium 1.9 Ferritin Total Bilirubin AST ALT Alkaline Phosphatase Troponin I Total Protein Albumin Urine Color Urine Appearance Urine pH Ur Specific [place] Urine Protein Urine Glucose (UA) Urine Ketones Urine Blood Urine Nitrite Urine Bilirubin Urine Urobilinogen Ur Leukocyte Esterase Urine WBC (Auto) Urine RBC (Auto) Urine Mucus Urine Osmolality Ur Random Sodium Ur Random Potassium Ur Random Chloride Urine Creatinine Acetone, Qual Negative Blood Type Antibody Screen 05/29/18 05/29/18 05/29/18 15:10 16:00 16:00 WBC RBC Hgb Hct MCV MCH MCHC RDW Plt Count MPV VBG pH POC VBG pCO2 POC VBG pO2 Mixed VBG HCO3 Sodium Potassium Chloride Carbon Dioxide Anion Gap BUN Creatinine Creat Clearance w eGFR POC Glucometer Random Glucose Lactic Acid Calcium Phosphorus 2.7 Magnesium Ferritin Total Bilirubin AST ALT Alkaline Phosphatase Troponin I Total Protein Albumin Urine Color Straw Urine Appearance Clear Urine pH 7.0 Ur Specific [place] 1.006 Urine Protein 2+ H Urine Glucose (UA) 3+ H Urine Ketones Negative Urine Blood 1+ H Urine Nitrite Negative Urine Bilirubin Negative Urine Urobilinogen Negative Ur Leukocyte Esterase Negative Urine WBC (Auto) 1 Urine RBC (Auto) None Urine Mucus Rare Urine Osmolality 177 L Ur Random Sodium Ur Random Potassium Ur Random Chloride Urine Creatinine Acetone, Qual Blood Type Antibody Screen 05/29/18 05/29/18 05/29/18 16:00 18:51 19:35 WBC RBC Hgb Hct MCV MCH MCHC RDW Plt Count MPV VBG pH POC VBG pCO2 POC VBG pO2 Mixed VBG HCO3 Sodium Potassium Chloride Carbon Dioxide Anion Gap BUN Creatinine Creat Clearance w eGFR POC Glucometer [phone] Random Glucose Lactic Acid 1.4 Calcium Phosphorus Magnesium Ferritin Total Bilirubin AST ALT Alkaline Phosphatase Troponin I Total Protein Albumin Urine Color Urine Appearance Urine pH Ur Specific [place] Urine Protein Urine Glucose (UA) Urine Ketones Urine Blood Urine Nitrite Urine Bilirubin Urine Urobilinogen Ur Leukocyte Esterase Urine WBC (Auto) Urine RBC (Auto) Urine Mucus Urine Osmolality Ur Random Sodium 20 Ur Random Potassium < 9.0 Ur Random Chloride < 11 Urine Creatinine 20.9 Acetone, Qual Blood Type Antibody Screen 05/29/18 05/29/18 05/30/18 20:50 23:02 06:07 WBC RBC Hgb Hct MCV MCH MCHC RDW Plt Count MPV VBG pH POC VBG pCO2 POC VBG pO2 Mixed VBG HCO3 Sodium Potassium Chloride Carbon Dioxide Anion Gap BUN Creatinine Creat Clearance w eGFR POC Glucometer 138 138 Random Glucose Lactic Acid 1.3 Calcium Phosphorus Magnesium Ferritin Total Bilirubin AST ALT Alkaline Phosphatase Troponin I Total Protein Albumin Urine Color Urine Appearance Urine pH Ur Specific [place] Urine Protein Urine Glucose (UA) Urine Ketones Urine Blood Urine Nitrite Urine Bilirubin Urine Urobilinogen Ur Leukocyte Esterase Urine WBC (Auto) Urine RBC (Auto) Urine Mucus Urine Osmolality Ur Random Sodium Ur Random Potassium Ur Random Chloride Urine Creatinine Acetone, Qual Blood Type Antibody Screen 05/30/18 05/30/18 05/30/18 06:15 06:15 06:15 WBC 14.7 H RBC 3.54 L Hgb 9.4 L Hct 29.2 L MCV 82.3 MCH 26.6 MCHC 32.4 RDW 16.4 H Plt Count 350 MPV 8.1 VBG pH POC VBG pCO2 POC VBG pO2 Mixed VBG HCO3 Sodium 141 Potassium 3.0 L Chloride 112 H Carbon Dioxide 19 L Anion Gap 10 BUN 19 H Creatinine 2.0 H Creat Clearance w eGFR 35.99 POC Glucometer Random Glucose 139 H Lactic Acid Calcium 7.6 L Phosphorus 3.3 Magnesium 1.6 L Ferritin 124.2 Total Bilirubin 1.0 AST 9 L ALT 7 L Alkaline Phosphatase 196 H Troponin I Total Protein 5.3 L Albumin 1.8 L Urine Color Urine Appearance Urine pH Ur Specific [place] Urine Protein Urine Glucose (UA) Urine Ketones Urine Blood Urine Nitrite Urine Bilirubin Urine Urobilinogen Ur Leukocyte Esterase Urine WBC (Auto) Urine RBC (Auto) Urine Mucus Urine Osmolality Ur Random Sodium Ur Random Potassium Ur Random Chloride Urine Creatinine Acetone, Qual Blood Type Antibody Screen Active Medications Generic Name Dose Route Start Last Admin Trade Name Freq PRN Reason Stop Dose Admin Heparin Sodium (Porcine) 5,000 unit 05/29/18 22:00 05/30/18 06:05 Heparin - SQ 5,000 unit TID [facility] Administration Ceftriaxone Sodium 2 gm/ 100 mls @ 100 mls/hr 05/30/18 10:00 05/30/18 09:42 Dextrose IVPB 100 mls/hr DAILY [facility]ESUS Administration Protocol Insulin Aspart 1 vial 05/29/18 16:30 05/30/18 06:09 Novolog Vial Sliding Scale - SQ Not Given ACHS [facility] Protocol Insulin Detemir 15 units 05/31/18 07:00 Levemir Vial SQ AM [facility] Morphine Sulfate 2 mg 05/29/18 13:11 05/30/18 06:05 Morphine Sulfate IVPUSH 2 mg Q4H PRN Administration PAIN LEVEL 6-10 Pantoprazole Sodium 20 mg 05/30/18 10:00 05/30/18 09:43 Protonix - PO 20 mg DAILY JESUS Administration Potassium Chloride 40 meq 05/30/18 10:45 Potassium Chloride Oral Liquid PO 05/30/18 22:01 BID JESUS ASSESSMENT/PLAN: 48 y/o M w/ PHMx uncontrolled DM, L BKA, multiple soft tissue infections, p/w L hemiscrotal pain, swelling. Admitted for sepsis 2/2 cellulitis vs. cutaneous abscess. #Sepsis 2/2 to L hemiscrotal cellulitis vs. cutaneous abscess -on admission WBC 17.5, tachycardic, afebrile; 1 dose Vanc/Zosyn given -US: normal testicular sonogram with no evidence of torsion or acute pathology, Extensive left scrotal thickening consistent with infection with ill-defined echogenic material -this AM WBC 14.7, still tachy and afebrile -ID consulted: Dr Nolen -now Zosyn monotherapy -BCx NGTD, WCx multiple organisms (possibly contaminants), UCx pending -morphine 2q4 and oxy 5q3 PRN for pain -Uro consulted: no drainable collection at this point but will follow #DM -noncompliant, glucose 457 on admission, ketones negative and no anion gap on admission -ISS + levemir 15U AM -glucose 139 this AM -BGM #KENDRICK vs CKD -Cr 2 from 2.2 this AM -2+ urine protein -hold home lisinopril -monitor #hypokalemia -K 2.6 on admission, 3 this AM -KCl 40 meq BID -monitor #Anemia -at baseline compared to last admission -fu iron studies #FEN -no IVF -monitor lytes -diabetic/sodium-controlled diet #DVT -heparin subq #dispo -tele (hypoK) Visit type - Emergency Visit Emergency Visit: No - New Patient This patient is new to me today: Yes Date on this admission: 05/30/18 - Critical Care Critical Care patient: No
[2018-05-30] MEDS ORDERED: PIPERACILLIN/TAZOBACTAM 3.375 GM VIAL IVPB ONE ×2 (11:51→17:12)
[2018-05-30] MEDS ORDERED: DEXTROSE 5%-WATER - 50 ML IVPB ONE ×2 (11:51→17:13)
[2018-05-30] MEDS: POTASSIUM CHLORIDE ORAL LIQUID 20 MEQ/15 ML PO SCH ×2 (11:54→21:49)
[2018-05-30] MEDS: PIPERACILLIN/TAZOB 3.375 GM 3.375 GM in DEXTROSE 5%-WATER - 50 ML IVPB SCH ×2 (11:55→17:29)
[2018-05-30] MEDS: SODIUM CHLORIDE 1,000 ML IV SCH (14:22)
--- NOTE | 2018-05-30 16:01 | CON.GU ---
Consult Consult Specialty:: Urology Reason for Consultation:: Scrotal infection - History of Present Illness Chief Complaint: scrotal pain - History Source History Provided By: Patient, Medical Record - Past Medical History Cardio/Vascular: Yes: HTN, Hyperlipdemia Gastrointestinal: Yes: GERD Infectious Disease: Yes: MRSA (several years ago) Musculoskeletal: Yes: Other (left thigh pain) Endocrine: Yes: Diabetes Mellitus Dermatology: Yes: Cellulitis (mrsa) - Past Surgical History Past Surgical History: Yes: Amputation (left BKA) - Alcohol/Substance Use Hx Alcohol Use: No - Smoking History Smoking history: Never smoked Have you smoked in the past 12 months: No Aproximately how many cigarettes per day: 0 If you are a former smoker, when did you quit?: 10 years ago - Social History Usual Living Arrangement: With Spouse ADL: Independent History of Recent Travel: No Home Medications - Allergies Allergies/Adverse Reactions: Allergies Allergy/AdvReac Type Severity Reaction Status Date / Time No Known Allergies Allergy Verified 05/29/18 09:24 - Home Medications Home Medications: Ambulatory Orders Acetaminophen [Tylenol .Regular Strength -] 650 mg PO Q4H PRN #0 tablet Insulin (Levemir) [Levemir Vial] 15 units SQ AM #1 vial 07/17/17 Lisinopril [Prinivil] 30 mg PO DAILY tablet 07/17/17 Metoclopramide HCl 5 mg PO ASDIR 05/29/18 Pantoprazole Sodium [Protonix -] 20 mg PO DAILY 05/29/18 Family Disease History - Family Disease History Family Disease History: Diabetes: Father Physical Exam- Vital Signs: Vital Signs Temperature 98.4 F 05/30/18 13:39 Pulse Rate 98 H 05/30/18 13:39 Respiratory Rate 18 05/30/18 13:39 Blood Pressure 143/87 05/30/18 13:39 O2 Sat by Pulse Oximetry (%) 98 05/30/18 09:00 Labs: CBC, BMP 05/30/18 06:15 05/30/18 06:15 Imaging - Results Ultrasound: Report Reviewed Problem List - Problems (1) Abscess and cellulitis Code(s): L03.90 - CELLULITIS, UNSPECIFIED; L02.91 - CUTANEOUS ABSCESS, UNSPECIFIED Assessment/Plan 48 yo pt w hx of scrotal infections now w 2 days pain swelling of scrotum mostly on left Currently on IV abx Piperacillin TANG no wdrainable abscess clinically no fluctuatance or drainage point Likely will require future drainage will follow over next few days
[2018-05-30] MEDS ORDERED: oxyCODONE HCL 5 MG TABLET PO PRN (16:56)
[2018-05-30] MEDS ORDERED: DOCUSATE SODIUM 100 MG CAPSULE (FP) PO PRN (18:44)
--- NOTE | 2018-05-30 18:49 | PN ---
Teaching Attending Note Name of Resident: Pratik Stewart ATTENDING PHYSICIAN STATEMENT I saw and evaluated the patient. I reviewed the resident's note and discussed the case with the resident. I agree with the resident's findings and plan as documented. SUBJECTIVE: No fever or chills. has pain in scrotum especially L. no abd pain, dysuria or diarrhea . OBJECTIVE: NAD CV: RRR Lungs; CTAB ext /: L BKA , small skin breakdown on L stump, no discharge . no edema on RLE. surgical scars on legs and arms Abd: sfot, Nt, ND , NL BS ; Nl hair distribution . enlarged scrotum. ulcer withyellow exudate on L anterior scrotum, with a small opening with expressed puss when squeezed lateraly over L scrotum. tenderness to palpation , discoloration with erythema and hyperpigmentation . unable to evaluate testicles and epididymis due to pain ASSESSMENT AND PLAN: 48 y/o man with h/o DM, HTN, L BKA ,MRSA , L LE soft tissue infection who presented with pain and edema in his scrotum. he was diagnosed with scrotal cellulites 1- Scrotal cellulites : US with no torsion or abscess formation . exam indicates small pockets of pus under skin UA is clean with no urinary sx. no suspicion for testiculitis or epididymitis , also US support this . - d/w Id : андрей . - cx reviewed - will consult urology 2- Anemia: microcytic. iron studies inpast showed ACd. gregorio repeat iron studies and further w/u as out p t 3- Dm : not compliant withhis levemir . takes 15 units daily PRN - start Levemir at 15 - SSI 4- KENDRICK : feNA suggest intrinsic etiology but cr improved with IVF. will cont IVf and observe - check renal US 5- Hypokalemia : replete 40 meq x 2 today replete hypomagnesemia 6- dispo : HLOC
[2018-05-30] MEDS ORDERED: MAGNESIUM SULF 50% (8.12 MEQ/2 ML-1 GM VIAL) IVPB ONE (18:56)
[2018-05-30] MEDS ORDERED: MAGNESIUM SULFATE IN WATER 2 GM/50 ML IVPB IVPB ONE (19:30)
[2018-05-30] MEDS: oxyCODONE HCL 5 MG TABLET PO PRN (21:30)
[2018-05-31] MEDS: PIPERACILLIN/TAZOB 3.375 GM 3.375 GM in DEXTROSE 5%-WATER - 50 ML IVPB SCH ×3 (02:31→18:43)
[2018-05-31] MEDS ORDERED: PIPERACILLIN/TAZOBACTAM 3.375 GM VIAL IVPB ONE ×3 (03:24→18:28)
[2018-05-31] MEDS ORDERED: DEXTROSE 5%-WATER - 50 ML IVPB ONE ×3 (03:24→18:28)
[2018-05-31] MEDS: MORPHINE SULFATE 2 MG/ML VIAL IVPUSH PRN ×3 (07:31→20:25)
[2018-05-31] MEDS: HEPARIN NA (PORCINE) 5,000 UNITS/ML 1ML VIAL SQ SCH ×3 (07:46→21:26)
[2018-05-31] MEDS: INSULIN (LEVEMIR) 100 UNITS/ML UNITS SQ SCH ×2 (07:47→07:51)
[2018-05-31] MEDS: INSULIN SLIDING SCALE (NOVOLOG) 1 VIAL SQ SCH ×4 (07:53→21:32)
[2018-05-31 08:06] LABS: BASO % 0.2 % (0-2.0); EOS % 3.9 % (0-4.5); HEMATOCRIT 28.8 % (35.4-49); HEMOGLOBIN 9.4 GM/dL (11.7-16.9); LYMPH % 4.4 % (8-40); MCH 27.2 pg (25.7-33.7); MCHC 32.7 g/dl (32.0-35.9); MEAN CELL VOLUME 83.1 fl (80-96); MONO % 4.8 % (3.8-10.2); NEUT % 86.7 % (42.8-82.8); PLATELET COUNT 381 K/MM3 (134-434); RBC 3.47 M/mm3 (4.00-5.60)
[2018-05-31] MEDS ORDERED: INSULIN (LEVEMIR) 100 UNITS/ML UNITS SQ ONE (08:07)
[2018-05-31] MEDS ORDERED: MAGNESIUM OXIDE 400 MG TABLET (FP) PO ONE (08:11)
[2018-05-31 08:53] LABS: ANION GAP 13 MMOL/L (8-16); BLOOD UREA NITROGEN 16 mg/dL (7-18); CALCIUM 8.3 mg/dL (8.5-10.1); CHLORIDE 113 mmol/L (98-107); CO2 15 mmol/L (21-32); CREATININE 2.1 mg/dL (0.55-1.3); GLUCOSE,RANDOM 251 mg/dL (74-106); MAGNESIUM 2.1 mg/dL (1.8-2.4); PHOSPHOROUS 3.6 mg/dL (2.5-4.9); POTASSIUM 3.8 mmol/L (3.5-5.1); SODIUM 141 mmol/L (136-145)
[2018-05-31] MEDS: PANTOPRAZOLE 20 MG TABLET (FP) PO SCH (10:59)
--- NOTE | 2018-05-31 11:07 | PN ---
Progress Note, Physician History of Present Illness: still with tenderness in scrotum otherwise stable some nauseous feeling - Current Medication List Current Medications: Active Medications Docusate Sodium (Colace -) 100 mg PO BID PRN PRN Reason: CONSTIPATION Heparin Sodium (Porcine) (Heparin -) 5,000 unit SQ TID [facility] Last Admin: 05/31/18 07:46 Dose: 5,000 unit Piperacillin Sod/Tazobactam (Sod 3.375 gm/ Dextrose) 50 mls @ 100 mls/hr IVPB Q8H-IV [facility]; Protocol Last Admin: 05/31/18 02:31 Dose: 100 mls/hr Sodium Chloride (Normal Saline -) 1,000 mls @ 100 mls/hr IV ASDIR [facility] Last Admin: 05/30/18 14:22 Dose: 100 mls/hr Insulin Aspart (Novolog Vial Sliding Scale -) 1 vial SQ ACHS [facility]; Protocol Last Admin: 05/31/18 07:53 Dose: Not Given Insulin Detemir (Levemir Vial) 10 units SQ AM [facility] Morphine Sulfate (Morphine Sulfate) 2 mg IVPUSH Q4H PRN PRN Reason: PAIN LEVEL 6-10 Last Admin: 05/31/18 07:31 Dose: 2 mg Oxycodone HCl (Roxicodone -) 5 mg PO Q4H PRN PRN Reason: PAIN LEVEL 1-5 Last Admin: 05/30/18 21:30 Dose: 5 mg Pantoprazole Sodium (Protonix -) 20 mg PO DAILY [facility] Last Admin: 05/30/18 09:43 Dose: 20 mg - Objective Vital Signs: Vital Signs Temperature 98.4 F 05/31/18 05:00 Pulse Rate 101 H 05/31/18 05:00 Respiratory Rate 18 05/31/18 05:00 Blood Pressure 147/97 05/31/18 05:00 O2 Sat by Pulse Oximetry (%) 98 05/30/18 19:45 Constitutional: Yes: Calm, Mild Distress Cardiovascular: Yes: Regular Rate and Rhythm Respiratory: Yes: Regular Gastrointestinal: Yes: Normal Bowel Sounds, Soft Genitourinary: Yes: Scrotal Edema, Other (scrotal cellulitis) Musculoskeletal: Yes: Other Extremities: Yes: Other Wound/Incision: Yes: Other Neurological: Yes: Alert, Oriented Psychiatric: Yes: Alert, Oriented Labs: CBC, BMP 05/31/18 06:45 05/31/18 06:45 INR, PTT INR 1.01 (0.83-1.09) 05/29/18 10:23 Assessment/Plan scrotal edema swelling pain scrotal phlegmon necrotic skin plan continue abx urology awaited will need something rest as per the team
--- NOTE | 2018-05-31 11:13 | PN ---
Teaching Attending Note Name of Resident: Pratik Stewart ATTENDING PHYSICIAN STATEMENT I saw and evaluated the patient. I reviewed the resident's note and discussed the case with the resident. I agree with the resident's findings and plan as documented. SUBJECTIVE: cont to have scrotal pain. no fever or chills. no abd pain , no dysuria OBJECTIVE: NAD CV: RRR Lungs; CTAB ext: L BKA ,artificial limb on . no edema on RLE. surgical scars on legs and arms Abd: soft, Nt, ND , NL BS ; Nl hair distribution . enlarged scrotum ( less than before) . ulcer with yellow exudate on L anterior scrotum. tenderness to palpation , discoloration with erythema and hyperpigmentation . ASSESSMENT AND PLAN: 48 y/o man with h/o DM, HTN, L BKA ,MRSA , L LE soft tissue infection who presented with pain and edema in his scrotum. he was diagnosed with scrotal cellulites 1- Scrotal cellulites:No drainable collection so far. - cont zosyn - cont pain control - seen by uro - will repeat US in few days to evaluate for drainable collection - follow final wound cx 2- Microcytic Anemia: follow iron studies ( ACD on previous work up ) 3- DM : refused Am insulin today - change to levemir 10 ( pt concern is hypoglycemia ) - SSI 4- KENDRICK : feNA 1.6. ? intrinsic cause - follow renal US - cont IVF HLOC
[2018-05-31] MEDS ORDERED: INSULIN (NOVOLOG) ASPART 100 UNITS/ML 10ML VIAL ONE (11:23)
--- NOTE | 2018-05-31 13:40 | PN ---
Physical Exam: SUBJECTIVE: Patient seen and examined at bedside. Remains in exquisite pain d/t infection of the scrotum. Otherwise non-conversant. OBJECTIVE: Vital Signs Period Temp Pulse Resp BP Sys/Monet Pulse Ox Last 24 Hr 98.2 F-98.8 F 94-101 18-18 127-147/71-97 98 GENERAL: A&Ox3, in moderate distress HEAD: NC/AT, EYES: PERRLA, EOMI EARS, NOSE, THROAT: oropharynx clear, MMM NECK: supple, full ROM, no LAD, no JVD LUNGS: CTA b/l HEART: RRR no m/r/g ABDOMEN: +bs, NT, ND, obese EXTREMITIES: 2+ pulses, wwp, skin graft scar on R arm, L BKA, no edema NEUROLOGICAL: CN's, motor, and sensory systems without focal deficit, normal speech, gait not observed : L hemiscrotum swollen with 1-2cm non-draining erythematous, warm, indurated , exquisitely tender lesion; R hemiscrotum normal Laboratory Results - last 24 hr 05/30/18 05/30/18 05/31/18 17:20 21:45 05:33 WBC RBC Hgb Hct MCV MCH MCHC RDW Plt Count MPV Absolute Neuts (auto) Neutrophils % Lymphocytes % Monocytes % Eosinophils % Basophils % Nucleated RBC % Sodium Potassium Chloride Carbon Dioxide Anion Gap BUN Creatinine Creat Clearance w eGFR POC Glucometer 206 227 222 Random Glucose Calcium Phosphorus Magnesium 05/31/18 05/31/18 05/31/18 06:45 06:45 08:07 WBC 15.0 H RBC 3.47 L Hgb 9.4 L Hct 28.8 L MCV 83.1 MCH 27.2 MCHC 32.7 RDW 17.0 H Plt Count 381 MPV 8.0 Absolute Neuts (auto) 13.0 H Neutrophils % 86.7 H Lymphocytes % 4.4 L Monocytes % 4.8 Eosinophils % 3.9 Basophils % 0.2 Nucleated RBC % 0 Sodium 141 Potassium 3.8 Chloride 113 H Carbon Dioxide 15 L Anion Gap 13 BUN 16 Creatinine 2.1 H Creat Clearance w eGFR 34.02 POC Glucometer Random Glucose 251 H Calcium 8.3 L Phosphorus 3.6 Cancelled Magnesium 2.1 Cancelled 05/31/18 11:14 WBC RBC Hgb Hct MCV MCH MCHC RDW Plt Count MPV Absolute Neuts (auto) Neutrophils % Lymphocytes % Monocytes % Eosinophils % Basophils % Nucleated RBC % Sodium Potassium Chloride Carbon Dioxide Anion Gap BUN Creatinine Creat Clearance w eGFR POC Glucometer 249 Random Glucose Calcium Phosphorus Magnesium Active Medications Generic Name Dose Route Start Last Admin Trade Name Freq PRN Reason Stop Dose Admin Docusate Sodium 100 mg 05/30/18 18:44 Colace - PO BID PRN CONSTIPATION Heparin Sodium (Porcine) 5,000 unit 05/29/18 22:00 05/31/18 07:46 Heparin - SQ 5,000 unit TID [facility] Administration Piperacillin Sod/Tazobactam 50 mls @ 100 mls/hr 05/30/18 11:45 05/31/18 10:59 Sod 3.375 gm/ Dextrose IVPB 100 mls/hr Q8H-IV [facility] Administration Protocol Sodium Chloride 1,000 mls @ 100 mls/hr 05/30/18 13:30 05/30/18 14:22 Normal Saline - IV 100 mls/hr ASDIR [facility] Administration Insulin Aspart 1 vial 05/29/18 16:30 05/31/18 11:25 Novolog Vial Sliding Scale - SQ 4 unit ACHS [facility] Administration Protocol Insulin Detemir 10 units 05/31/18 08:08 Levemir Vial SQ AM [facility] Morphine Sulfate 2 mg 05/29/18 13:11 05/31/18 07:31 Morphine Sulfate IVPUSH 2 mg Q4H PRN Administration PAIN LEVEL 6-10 Oxycodone HCl 5 mg 05/30/18 18:44 05/30/18 21:30 Roxicodone - PO 5 mg Q4H PRN Administration PAIN LEVEL 1-5 Pantoprazole Sodium 20 mg 05/30/18 10:00 05/31/18 10:59 Protonix - PO 20 mg DAILY [facility] Administration ASSESSMENT/PLAN: 48 y/o M w/ PHMx uncontrolled DM, L BKA, multiple soft tissue infections, p/w L hemiscrotal pain, swelling. Admitted for sepsis 2/2 cellulitis vs. cutaneous abscess. #Sepsis 2/2 to L hemiscrotal cellulitis vs. cutaneous abscess -on admission WBC 17.5, tachycardic, afebrile; 1 dose Vanc/Zosyn given -US: normal testicular sonogram with no evidence of torsion or acute pathology, Extensive left scrotal thickening consistent with infection with ill-defined echogenic material -this AM WBC 15, still tachy and afebrile -ID consulted: Dr Nolen -cont Zosyn -BCx NGTD, UCx negative, WCx preliminary multiple organisms (MSSA, coag- Staph, E faecalis, lac+ Gnb) -morphine 2q4 and oxy 5q4 PRN for pain -Uro consulted: no drainable collection at this point but will follow -will repeat US in 1-2 days to evaluate possible collection #DM -noncompliant, glucose 457 on admission, ketones negative and no anion gap on admission -refused insulin this AM (concerned re: hypoglycemia) -ISS + levemir lowered to 10U AM -BGM #Anemia -microcytic -follow iron studies and retics #KENDRICK vs CKD -Cr 2.1, not improving -hold home lisinopril -follow renal US -FENa 1.6 -monitor #hypokalemia -resolved -monitor #FEN -NS 100 -monitor lytes -diabetic/sodium-controlled diet #DVT -heparin subq #dispo -transfer to med/surg Visit type - Emergency Visit Emergency Visit: No - New Patient This patient is new to me today: No - Critical Care Critical Care patient: No
[2018-05-31] MEDS: SODIUM CHLORIDE 1,000 ML IV SCH (14:23)
[2018-05-31 16:41] LABS: SERUM IRON SATURATION 4 % (15-55); TOTAL IRON BINDING CAPACITY 183 ug/dL (250-450); UIBC 176 ug/dL (111-343)
[2018-05-31] MEDS: oxyCODONE HCL 5 MG TABLET PO PRN (18:43)
[2018-05-31] MEDS ORDERED: PROCHLORPERAZINE INJECTION 10 MG/2 ML VIAL IVPB ONE (20:12)
[2018-06-01] MEDS ORDERED: PIPERACILLIN/TAZOBACTAM 3.375 GM VIAL IVPB ONE ×2 (00:21→08:40)
[2018-06-01] MEDS ORDERED: DEXTROSE 5%-WATER - 50 ML IVPB ONE ×2 (00:21→08:40)
[2018-06-01] MEDS: MORPHINE SULFATE 2 MG/ML VIAL IVPUSH PRN ×5 (00:59→23:40)
[2018-06-01] MEDS: PIPERACILLIN/TAZOB 3.375 GM 3.375 GM in DEXTROSE 5%-WATER - 50 ML IVPB SCH ×4 (01:00→17:20)
[2018-06-01] MEDS: HEPARIN NA (PORCINE) 5,000 UNITS/ML 1ML VIAL SQ SCH ×3 (05:52→21:55)
[2018-06-01] MEDS: INSULIN (LEVEMIR) 100 UNITS/ML UNITS SQ SCH (06:00)
[2018-06-01] MEDS: INSULIN SLIDING SCALE (NOVOLOG) 1 VIAL SQ SCH ×4 (06:01→21:56)
[2018-06-01 06:45] LABS: HEMATOCRIT 29.1 % (35.4-49); HEMOGLOBIN 9.2 GM/dL (11.7-16.9); MCH 26.3 pg (25.7-33.7); MCHC 31.7 g/dl (32.0-35.9); MEAN PLT VOLUME 7.6 fl (7.5-11.1); PLATELET COUNT 401 K/MM3 (134-434); RBC 3.51 M/mm3 (4.00-5.60); RDW 16.8 % (11.9-15.9); WHITE BLOOD COUNT 12.4 K/mm3 (4.0-10.0)
[2018-06-01 07:18] LABS: ANION GAP 8 MMOL/L (8-16); BLOOD UREA NITROGEN 11 mg/dL (7-18); CALCIUM 7.6 mg/dL (8.5-10.1); CHLORIDE 113 mmol/L (98-107); CO2 19 mmol/L (21-32); CREATININE 1.9 mg/dL (0.55-1.3); GLUCOSE,RANDOM 150 mg/dL (74-106); MAGNESIUM 1.9 mg/dL (1.8-2.4); PHOSPHOROUS 3.9 mg/dL (2.5-4.9); POTASSIUM 3.7 mmol/L (3.5-5.1); SODIUM 140 mmol/L (136-145)
[2018-06-01] MEDS ORDERED: PROCHLORPERAZINE INJECTION 10 MG/2 ML VIAL IVPB PRN (07:48)
[2018-06-01] MEDS ORDERED: LISINOPRIL 20 MG TABLET (FP) PO ONE (08:15)
[2018-06-01] MEDS: oxyCODONE HCL 5 MG TABLET PO PRN (09:42)
[2018-06-01] MEDS: PANTOPRAZOLE 20 MG TABLET (FP) PO SCH (09:42)
--- NOTE | 2018-06-01 10:45 | PN ---
Progress Note, Physician History of Present Illness: patient c/o of pain still with swelling of the scrotum small necrotic area noted on the skin - Current Medication List Current Medications: Active Medications Docusate Sodium (Colace -) 100 mg PO BID PRN PRN Reason: CONSTIPATION Heparin Sodium (Porcine) (Heparin -) 5,000 unit SQ TID [facility] Last Admin: 06/01/18 05:52 Dose: 5,000 unit Piperacillin Sod/Tazobactam (Sod 3.375 gm/ Dextrose) 50 mls @ 100 mls/hr IVPB Q8H-IV [facility]; Protocol Last Admin: 06/01/18 09:45 Dose: 100 mls/hr Sodium Chloride (Normal Saline -) 1,000 mls @ 100 mls/hr IV ASDIR [facility] Last Admin: 05/31/18 14:23 Dose: Not Given Insulin Aspart (Novolog Vial Sliding Scale -) 1 vial SQ ACHS [facility]; Protocol Last Admin: 06/01/18 06:01 Dose: Not Given Insulin Detemir (Levemir Vial) 10 units SQ AM [facility] Last Admin: 06/01/18 06:00 Dose: 10 units Lisinopril (Prinivil) 30 mg PO DAILY [facility] Morphine Sulfate (Morphine Sulfate) 2 mg IVPUSH Q4H PRN PRN Reason: PAIN LEVEL 6-10 Last Admin: 06/01/18 10:07 Dose: 2 mg Oxycodone HCl (Roxicodone -) 5 mg PO Q4H PRN PRN Reason: PAIN LEVEL 1-5 Last Admin: 06/01/18 09:42 Dose: 5 mg Pantoprazole Sodium (Protonix -) 20 mg PO DAILY [facility] Last Admin: 06/01/18 09:42 Dose: 20 mg Prochlorperazine Edisylate (Compazine Injection -) 2.5 mg IVPB Q4H PRN PRN Reason: NAUSEA AND/OR VOMITING - Objective Vital Signs: Vital Signs Temperature 98.7 F 06/01/18 05:00 Pulse Rate 98 H 06/01/18 05:00 Respiratory Rate 06/01/18 05:00 Blood Pressure 169/103 06/01/18 05:00 O2 Sat by Pulse Oximetry (%) 97 05/31/18 21:00 Constitutional: Yes: Calm, Mild Distress Neck: Yes: Supple Cardiovascular: Yes: Regular Rate and Rhythm Respiratory: Yes: Regular, CTA Bilaterally Gastrointestinal: Yes: Normal Bowel Sounds, Soft Genitourinary: Yes: Scrotal Edema, Other (small necrotic area on the skin of the scrotum) Musculoskeletal: Yes: WNL Extremities: Yes: Other (amputation) Integumentary: Yes: Other Neurological: Yes: Alert, Oriented Psychiatric: Yes: Alert, Oriented Labs: CBC, BMP 06/01/18 05:30 06/01/18 05:30 INR, PTT INR 1.01 (0.83-1.09) 05/29/18 10:23 Assessment/Plan scrotal edema swelling pain scrotal phlegmon plan continue abx re imaging urology to se se the patient monitor the black spot will add clinda
[2018-06-01] MEDS: CLINDAMYCIN HCL 150 MG CAPSULE (FP) PO SCH ×2 (12:50→18:04)
--- NOTE | 2018-06-01 13:03 | PN ---
Physical Exam: SUBJECTIVE: Patient seen and examined at bedside. Remains in exquisite pain d/t infection of the scrotum. Episodes of n/v overnight. OBJECTIVE: Vital Signs Period Temp Pulse Resp BP Sys/Monet Pulse Ox Last 24 Hr 98.6 F-98.9 F 97-106 18-20 149-169/84-103 97 GENERAL: A&Ox3, in moderate distress HEAD: NC/AT, EYES: PERRLA, EOMI EARS, NOSE, THROAT: oropharynx clear, MMM NECK: supple, full ROM, no LAD, no JVD LUNGS: CTA b/l HEART: RRR no m/r/g ABDOMEN: +bs, NT, ND, obese EXTREMITIES: 2+ pulses, wwp, skin graft scar on R arm, L BKA, no edema NEUROLOGICAL: CN's, motor, and sensory systems without focal deficit, normal speech, gait not observed : L hemiscrotum swollen with 1-2cm non-draining erythematous, warm, indurated , exquisitely tender lesion; R hemiscrotum normal Laboratory Results - last 24 hr 05/30/18 05/31/18 05/31/18 06:15 16:56 21:28 WBC RBC Hgb Hct MCV MCH MCHC RDW Plt Count MPV Retic Count Sodium Potassium Chloride Carbon Dioxide Anion Gap BUN Creatinine Creat Clearance w eGFR POC Glucometer 237 146 Random Glucose Calcium Phosphorus Magnesium Iron 7 L TIBC 183 L Iron Saturation 4 L 06/01/18 06/01/18 06/01/18 05:30 05:30 05:30 WBC 12.4 H RBC 3.51 L Hgb 9.2 L Hct 29.1 L MCV 83.0 MCH 26.3 MCHC 31.7 L RDW 16.8 H Plt Count 401 MPV 7.6 Retic Count 0.64 D Sodium 140 Potassium 3.7 Chloride 113 H Carbon Dioxide 19 L Anion Gap 8 BUN 11 Creatinine 1.9 H Creat Clearance w eGFR 38.19 POC Glucometer Random Glucose 150 H Calcium 7.6 L Phosphorus 3.9 Magnesium 1.9 Iron TIBC Iron Saturation 06/01/18 05:54 WBC RBC Hgb Hct MCV MCH MCHC RDW Plt Count MPV Retic Count Sodium Potassium Chloride Carbon Dioxide Anion Gap BUN Creatinine Creat Clearance w eGFR POC Glucometer 135 Random Glucose Calcium Phosphorus Magnesium Iron TIBC Iron Saturation Active Medications Generic Name Dose Route Start Last Admin Trade Name Freq PRN Reason Stop Dose Admin Clindamycin HCl 300 mg 06/01/18 12:00 Cleocin - PO Q6HPO [facility] Docusate Sodium 100 mg 05/30/18 18:44 Colace - PO BID PRN CONSTIPATION Heparin Sodium (Porcine) 5,000 unit 05/29/18 22:00 06/01/18 05:52 Heparin - SQ 5,000 unit TID [facility] Administration Piperacillin Sod/Tazobactam 50 mls @ 100 mls/hr 05/30/18 11:45 06/01/18 09:45 Sod 3.375 gm/ Dextrose IVPB 100 mls/hr Q8H-IV [facility] Administration Protocol Sodium Chloride 1,000 mls @ 100 mls/hr 05/30/18 13:30 05/31/18 14:23 Normal Saline - IV Not Given ASDIR [facility] Insulin Aspart 1 vial 05/29/18 16:30 06/01/18 06:01 Novolog Vial Sliding Scale - SQ Not Given ACHS [facility] Protocol Insulin Detemir 10 units 05/31/18 08:08 06/01/18 06:00 Levemir Vial SQ 10 units AM [facility] Administration Lisinopril 30 mg 06/02/18 10:00 Prinivil PO DAILY [facility] Morphine Sulfate 2 mg 05/29/18 13:11 06/01/18 10:07 Morphine Sulfate IVPUSH 2 mg Q4H PRN Administration PAIN LEVEL 6-10 Oxycodone HCl 5 mg 05/30/18 18:44 06/01/18 09:42 Roxicodone - PO 5 mg Q4H PRN Administration PAIN LEVEL 1-5 Pantoprazole Sodium 20 mg 05/30/18 10:00 06/01/18 09:42 Protonix - PO 20 mg DAILY [facility] Administration Prochlorperazine Edisylate 2.5 mg 06/01/18 07:48 Compazine Injection - IVPB Q4H PRN NAUSEA AND/OR VOMITING ASSESSMENT/PLAN: 48 y/o M w/ PHMx uncontrolled DM, L BKA, multiple soft tissue infections, p/w L hemiscrotal pain, swelling. Admitted for sepsis 2/2 cellulitis vs. cutaneous abscess. #Sepsis 2/2 to L hemiscrotal cellulitis vs. cutaneous abscess -on admission WBC 17.5, tachycardic, afebrile; 1 dose Vanc/Zosyn given -US: normal testicular sonogram with no evidence of torsion or acute pathology, Extensive left scrotal thickening consistent with infection with ill-defined echogenic material -this AM WBC 15, still tachy and afebrile -ID consulted: Dr Nolen -cont Skyler, add Clinda -BCx NGTD, UCx negative, WCx preliminary multiple organisms (MSSA, coag- Staph, E faecalis, lac+ Gnb) -morphine 2q4 and oxy 5q4 PRN for pain -Uro consulted: no drainable collection at this point but will follow -will repeat US in 1-2 days to evaluate possible collection #nausea/vomiting -compazine PRN #DM -noncompliant, glucose 457 on admission, ketones negative and no anion gap on admission -refused insulin this AM (concerned re: hypoglycemia) -ISS + levemir 10U AM -BGM #Anemia -microcytic -follow iron studies and retics #KENDRICK vs CKD -Cr 2.1, not improving -hold home lisinopril -follow renal US -FENa 1.6 -monitor #hypokalemia -resolved -monitor #FEN -NS 100 -monitor lytes -diabetic/sodium-controlled diet #DVT -heparin subq -senna/colace #dispo -med/surg Visit type - Emergency Visit Emergency Visit: No - New Patient This patient is new to me today: No - Critical Care Critical Care patient: No
[2018-06-01] MEDS: SODIUM CHLORIDE 1,000 ML IV SCH (15:39)
--- NOTE | 2018-06-01 18:21 | PN ---
Teaching Attending Note Name of Resident: Pratik Stewart ATTENDING PHYSICIAN STATEMENT I saw and evaluated the patient. I reviewed the resident's note and discussed the case with the resident. I agree with the resident's findings and plan as documented. SUBJECTIVE: no fever or chills . pain in scrotum OBJECTIVE: NAD CV: RRR Lungs; CTAB ext: L BKA. no edema on RLE. surgical scars on legs and arms Abd: soft, Nt, ND , NL BS ; Nl hair distribution . enlarged scrotum . ulcer on L anterior scrotum. tenderness to palpation , discoloration with erythema and hyperpigmentation . ASSESSMENT AND PLAN: 48 y/o man with h/o DM, HTN, L BKA ,MRSA , L LE soft tissue infection who presented with pain and edema in his scrotum. he was diagnosed with scrotal cellulites 1- Scrotal cellulites: - repeat US - cont zosyn - cont pain control 2- Microcytic Anemia: iron studies indicate ACD 3- DM : - levemir and SSI 4- KENDRICK : nl kidneys on US . - cont IVF HLOC
[2018-06-01] MEDS ORDERED: INSULIN (NOVOLOG) ASPART 100 UNITS/ML 10ML VIAL ONE (21:31)
[2018-06-02] MEDS: CLINDAMYCIN HCL 150 MG CAPSULE (FP) PO SCH ×4 (00:06→17:24)
[2018-06-02] MEDS ORDERED: DEXTROSE 5%-WATER - 50 ML IVPB ONE ×3 (01:00→17:21)
[2018-06-02] MEDS ORDERED: PIPERACILLIN/TAZOBACTAM 3.375 GM VIAL IVPB ONE ×3 (01:00→17:21)
[2018-06-02] MEDS: PIPERACILLIN/TAZOB 3.375 GM 3.375 GM in DEXTROSE 5%-WATER - 50 ML IVPB SCH ×3 (01:07→17:24)
[2018-06-02] MEDS: MORPHINE SULFATE 2 MG/ML VIAL IVPUSH PRN ×4 (06:00→21:00)
[2018-06-02] MEDS: INSULIN (LEVEMIR) 100 UNITS/ML UNITS SQ SCH (06:01)
[2018-06-02] MEDS: HEPARIN NA (PORCINE) 5,000 UNITS/ML 1ML VIAL SQ SCH ×3 (06:02→21:09)
[2018-06-02] MEDS: INSULIN SLIDING SCALE (NOVOLOG) 1 VIAL SQ SCH ×4 (06:03→21:09)
[2018-06-02 06:15] LABS: HEMATOCRIT 27.6 % (35.4-49); MCH 26.7 pg (25.7-33.7); MCHC 32.6 g/dl (32.0-35.9); MEAN CELL VOLUME 81.9 fl (80-96); MEAN PLT VOLUME 7.1 fl (7.5-11.1); PLATELET COUNT 423 K/MM3 (134-434); RBC 3.37 M/mm3 (4.00-5.60); RDW 16.8 % (11.9-15.9)
[2018-06-02] MEDS ORDERED: MAG HYDROX/AL HYDROX/SIMETH 30 ML UNIT-DOSE CUP PO ONE (06:24)
[2018-06-02 07:20] LABS: ANION GAP 11 MMOL/L (8-16); BLOOD UREA NITROGEN 9 mg/dL (7-18); CALCIUM 7.8 mg/dL (8.5-10.1); CHLORIDE 113 mmol/L (98-107); CO2 17 mmol/L (21-32); CREATININE 1.6 mg/dL (0.55-1.3); GLUCOSE,RANDOM 144 mg/dL (74-106); MAGNESIUM 1.8 mg/dL (1.8-2.4); PHOSPHOROUS 3.5 mg/dL (2.5-4.9); POTASSIUM 3.4 mmol/L (3.5-5.1); SODIUM 142 mmol/L (136-145)
[2018-06-02] MEDS ORDERED: PT OWN MED DRAWER 7, Y5N ONE ×2 (07:26→17:20)
[2018-06-02] MEDS: PANTOPRAZOLE 20 MG TABLET (FP) PO SCH (09:41)
[2018-06-02] MEDS: LISINOPRIL 10 MG TABLET (FP) PO SCH (09:41)
--- NOTE | 2018-06-02 12:11 | PN ---
Physical Exam: SUBJECTIVE: Patient seen and examined. Said he has pain still when he moves or touches the scrotum. Said it has been bleeding more. Received 10u of levemir with improving glucose control. OBJECTIVE: Vital Signs Period Temp Pulse Resp BP Sys/Monet Pulse Ox Last 24 Hr 98.0 F-99.1 F 94-112 17-20 149-170/78-96 98-98 GENERAL: The patient is awake, alert, and fully oriented, anxious, in significant painful distress with scrotal manipulation. HEAD: Normal with no signs of trauma. LUNGS: Breath sounds equal, clear to auscultation bilaterally, no wheezes, no crackles, no accessory muscle use. HEART: Regular rate and rhythm, S1, S2 ABDOMEN: Obese, Soft, nontender, nondistended, normoactive bowel sounds EXTREMITIES: L BKA with slight anterior bruise over amputation stump, R LE no edema NEUROLOGICAL: Cranial nerves II through XII grossly intact. Normal speech, gait not observed. PSYCH: Anxious Scrotum: Exquisitely tender scrotum L>>R, towel used to pad the area with dried old blood. Reduced swelling over skin of R scrotum, L scrotum still edematous, darkened, thinner skin, no obvious anterior collections, no obvious pus exudates with multiple areas of necrosis. Unable to elevate the scrotum ( patient was in tears) CBC, BMP 06/02/18 05:30 06/02/18 05:30 Microbiology 05/29/18 10:23 Blood - Peripheral Venous Blood Culture - Preliminary NO GROWTH OBTAINED AFTER 96 HOURS, INCUBATION TO CONTINUE FOR 1 DAYS. 05/29/18 10:10 Blood - Peripheral Venous Blood Culture - Preliminary NO GROWTH OBTAINED AFTER 96 HOURS, INCUBATION TO CONTINUE FOR 1 DAYS. 05/29/18 10:26 Scrotum Gram Stain - Final 05/29/18 10:26 Scrotum Wound Culture - Final Staphylococcus Aureus Staphylococcus Coagulase Neg Enterococcus Faecalis Escherichia Coli Ambulatory Orders Acetaminophen [Tylenol .Regular Strength -] 650 mg PO Q4H PRN #0 tablet Insulin (Levemir) [Levemir Vial] 15 units SQ AM #1 vial 07/17/17 Lisinopril [Prinivil] 30 mg PO DAILY tablet 07/17/17 Metoclopramide HCl 5 mg PO ASDIR 05/29/18 Pantoprazole Sodium [Protonix -] 20 mg PO DAILY 05/29/18 Current Medications Clindamycin HCl (Cleocin -) 300 mg PO Q6HPO ON LICENSE OF [facility] Last Admin: 06/02/18 12:22 Dose: 300 mg Docusate Sodium (Colace -) 100 mg PO BID PRN PRN Reason: CONSTIPATION Heparin Sodium (Porcine) (Heparin -) 5,000 unit SQ TID ON [facility] OF [facility] Last Admin: 06/02/18 06:02 Dose: 5,000 unit Piperacillin Sod/Tazobactam (Sod 3.375 gm/ Dextrose) 50 mls @ 100 mls/hr IVPB Q8H-IV [facility]; Protocol Last Admin: 06/02/18 09:41 Dose: 100 mls/hr Sodium Chloride (Normal Saline -) 1,000 mls @ 100 mls/hr IV ASDIR ON [facility] OF [facility] Last Admin: 06/01/18 15:39 Dose: 100 mls/hr Insulin Aspart (Novolog Vial Sliding Scale -) 1 vial SQ ACHS [facility]; Protocol Last Admin: 06/02/18 11:26 Dose: Not Given Insulin Detemir (Levemir Vial) 10 units SQ AM [facility] Last Admin: 06/02/18 06:01 Dose: 10 units Lisinopril (Prinivil) 30 mg PO DAILY [facility] Last Admin: 06/02/18 09:41 Dose: 30 mg Morphine Sulfate (Morphine Sulfate) 2 mg IVPUSH Q4H PRN PRN Reason: PAIN LEVEL 6-10 Last Admin: 06/02/18 13:23 Dose: 2 mg Oxycodone HCl (Roxicodone -) 5 mg PO Q4H PRN PRN Reason: PAIN LEVEL 1-5 Last Admin: 06/01/18 09:42 Dose: 5 mg Pantoprazole Sodium (Protonix -) 20 mg PO DAILY [facility] Last Admin: 06/02/18 09:41 Dose: 20 mg Prochlorperazine Edisylate (Compazine Injection -) 2.5 mg IVPB Q4H PRN PRN Reason: NAUSEA AND/OR VOMITING Last Admin: 06/01/18 21:07 Dose: 2.5 mg -US: normal testicular sonogram with no evidence of torsion or acute pathology, Extensive left scrotal thickening consistent with infection with ill-defined echogenic material ASSESSMENT/PLAN: 48 y/o M w/ PHMx uncontrolled DM, L BKA, multiple soft tissue infections, p/w L hemiscrotal pain, swelling. Admitted for sepsis 2/2 cellulitis #Sepsis 2/2 to L hemiscrotal cellulitis -ID consulted: Dr Nolen -cont Zosyn (05/29) -Clinda (06/01) - switched from ceftriaxone and vanc -BCx NGTD, UCx negative, WCx (MSSA, coag- Staph, E faecalis, E coli) -morphine 2q4 and oxy 5q4 PRN for pain -Uro consulted: D/W Dr Pastor- will evaluate for probable bedside debridement as needed -Pt refused scrotal US- D/W Dr Pastor pt's refusal to do US #nausea/vomiting -compazine PRN #DM -Sugars mproved on levemir -ISS (not given) + levemir 10U AM -BGM #Anemia -microcytic -ACD likely secondary to CKD #KENDRICK vs CKD -Cr 2.1>>1.9>1.6 -Pt back on lisinopril 30mg daily -renal US- -FENa 1.6 -monitor #hypokalemia -Mild today at 3.4 -monitor as CKD pt #FEN -monitor lytes -diabetic/sodium-controlled diet #DVT -heparin subq -senna/colace #dispo -med/surg Visit type Visit type - Emergency Visit Emergency Visit: Yes ED Registration Date: 05/29/18 Care time: The patient presented to the Emergency Department on the above date and was hospitalized for further evaluation of their emergent condition. - New Patient This patient is new to me today: No - Critical Care Critical Care patient: No - Discharge Referral Referred to [facility] Med P.C.: No
--- NOTE | 2018-06-02 12:50 | PN ---
Teaching Attending Note Name of Resident: Casi Fitzgerald ATTENDING PHYSICIAN STATEMENT I saw and evaluated the patient. I reviewed the resident's note and discussed the case with the resident. I agree with the resident's findings and plan as documented. SUBJECTIVE: No fever or chills, continued pain in L scrotum. OBJECTIVE: NAD ext: L BKA. no edema on RLE. surgical scars on legs and arms ; Nl hair distribution . enlarged scrotum . ulcer on L anterior scrotum, now turned black eschar. tenderness to palpation , discoloration with erythema and hyperpigmentation . ASSESSMENT AND PLAN: 48 y/o man with h/o DM, HTN, L BKA ,MRSA , L LE soft tissue infection who presented with pain and edema in his scrotum. he was diagnosed with scrotal cellulites. 1- Scrotal cellulites: - refuses US - cont zosyn and clinda - cont pain control - will contact urology for possible need for debridment 2- Microcytic Anemia: iron studies indicate ACD 3- DM : - levemir and SSI 4- KENDRICK : cont to improve - cont IVF HLOC
[2018-06-02] MEDS: SODIUM CHLORIDE 1,000 ML IV SCH (14:11)
--- NOTE | 2018-06-02 16:47 | PN ---
JAVI Shaw Note Chief Complaint: scrotal abscess History of Present Illness: 48 yo male w scrotal abscess Initially no fluid to drain on US Pt refused repeat sono - Objective Vital Signs: Vital Signs Temperature 99 F 06/02/18 14:00 Pulse Rate 99 H 06/02/18 14:00 Respiratory Rate 20 06/02/18 14:00 Blood Pressure 155/77 06/02/18 14:00 O2 Sat by Pulse Oximetry (%) 98 06/02/18 09:00 Labs/Additional Data: CBC, BMP 06/02/18 05:30 06/02/18 05:30 INR, PTT INR 1.01 (0.83-1.09) 05/29/18 10:23 Blood Type Blood Type A POSITIVE 05/29/18 09:38 Antibody Screen Negative 05/29/18 09:38 Imaging - Results Ultrasound: Report Reviewed Problem List - Problems (1) Abscess and cellulitis Code(s): L03.90 - CELLULITIS, UNSPECIFIED; L02.91 - CUTANEOUS ABSCESS, UNSPECIFIED Assessment/Plan 2 cm inscision drained approx 20 cc fluid pus No evisence of residual fluid Skin left open and packed Pt w maekedly thickened skin cont IV abx Clinically stable Will follow
[2018-06-02] MEDS: oxyCODONE HCL 5 MG TABLET PO PRN (18:32)
[2018-06-03] MEDS ORDERED: PIPERACILLIN/TAZOBACTAM 3.375 GM VIAL IVPB ONE ×3 (00:29→16:51)
[2018-06-03] MEDS ORDERED: DEXTROSE 5%-WATER - 50 ML IVPB ONE ×3 (00:30→16:51)
[2018-06-03] MEDS: CLINDAMYCIN HCL 150 MG CAPSULE (FP) PO SCH ×4 (00:49→17:00)
[2018-06-03] MEDS: PIPERACILLIN/TAZOB 3.375 GM 3.375 GM in DEXTROSE 5%-WATER - 50 ML IVPB SCH ×3 (01:02→17:00)
[2018-06-03] MEDS: MORPHINE SULFATE 2 MG/ML VIAL IVPUSH PRN ×3 (03:18→23:19)
[2018-06-03] MEDS: HEPARIN NA (PORCINE) 5,000 UNITS/ML 1ML VIAL SQ SCH ×3 (05:54→22:05)
[2018-06-03] MEDS: INSULIN SLIDING SCALE (NOVOLOG) 1 VIAL SQ SCH ×4 (06:02→22:00)
[2018-06-03] MEDS: INSULIN (LEVEMIR) 100 UNITS/ML UNITS SQ SCH (06:03)
[2018-06-03 06:17] LABS: BASO % 0.3 % (0-2.0); HEMATOCRIT 26.9 % (35.4-49); HEMOGLOBIN 8.9 GM/dL (11.7-16.9); MCH 27.1 pg (25.7-33.7); MCHC 33.1 g/dl (32.0-35.9); MEAN CELL VOLUME 81.8 fl (80-96); MONO % 6.5 % (3.8-10.2); NEUT % 72.2 % (42.8-82.8); PLATELET COUNT 430 K/MM3 (134-434); RBC 3.29 M/mm3 (4.00-5.60); RDW 16.4 % (11.9-15.9); WHITE BLOOD COUNT 7.7 K/mm3 (4.0-10.0)
[2018-06-03 06:49] LABS: ANION GAP 11 MMOL/L (8-16); BLOOD UREA NITROGEN 7 mg/dL (7-18); CALCIUM 7.8 mg/dL (8.5-10.1); CHLORIDE 112 mmol/L (98-107); CO2 18 mmol/L (21-32); CREATININE 1.5 mg/dL (0.55-1.3); GLUCOSE,RANDOM 131 mg/dL (74-106); POTASSIUM 3.2 mmol/L (3.5-5.1); SODIUM 142 mmol/L (136-145)
[2018-06-03] MEDS: LISINOPRIL 10 MG TABLET (FP) PO SCH (09:11)
[2018-06-03] MEDS: PANTOPRAZOLE 20 MG TABLET (FP) PO SCH (09:11)
--- NOTE | 2018-06-03 10:59 | PN ---
Progress Note, Physician History of Present Illness: continues to ahve pain in the scrotum necrotic area has increased refused ultrasound - Current Medication List Current Medications: Active Medications Clindamycin HCl (Cleocin -) 300 mg PO Q6HPO [facility] Last Admin: 06/03/18 06:20 Dose: 300 mg Docusate Sodium (Colace -) 100 mg PO BID PRN PRN Reason: CONSTIPATION Last Admin: 06/02/18 18:32 Dose: 100 mg Heparin Sodium (Porcine) (Heparin -) 5,000 unit SQ TID [facility] Last Admin: 06/03/18 05:54 Dose: 5,000 unit Piperacillin Sod/Tazobactam (Sod 3.375 gm/ Dextrose) 50 mls @ 100 mls/hr IVPB Q8H-IV [facility]; Protocol Last Admin: 06/03/18 09:10 Dose: 100 mls/hr Sodium Chloride (Normal Saline -) 1,000 mls @ 100 mls/hr IV ASDIR [facility] Last Admin: 06/02/18 14:11 Dose: Not Given Insulin Aspart (Novolog Vial Sliding Scale -) 1 vial SQ ACHS [facility]; Protocol Last Admin: 06/03/18 06:02 Dose: Not Given Insulin Detemir (Levemir Vial) 10 units SQ AM [facility] Last Admin: 06/03/18 06:03 Dose: 10 units Lisinopril (Prinivil) 30 mg PO DAILY [facility] Last Admin: 06/03/18 09:11 Dose: 30 mg Morphine Sulfate (Morphine Sulfate) 2 mg IVPUSH Q4H PRN PRN Reason: PAIN LEVEL 6-10 Last Admin: 06/03/18 03:18 Dose: 2 mg Pantoprazole Sodium (Protonix -) 20 mg PO DAILY [facility] Last Admin: 06/03/18 09:11 Dose: 20 mg Prochlorperazine Edisylate (Compazine Injection -) 2.5 mg IVPB Q4H PRN PRN Reason: NAUSEA AND/OR VOMITING Last Admin: 06/01/18 21:07 Dose: 2.5 mg - Objective Vital Signs: Vital Signs Temperature 98.3 F 06/03/18 05:53 Pulse Rate 95 H 06/03/18 05:53 Respiratory Rate 22 H 06/03/18 05:53 Blood Pressure 165/95 06/03/18 05:53 O2 Sat by Pulse Oximetry (%) 98 06/02/18 20:49 Constitutional: Yes: Calm, Moderate Distress Cardiovascular: Yes: Regular Rate and Rhythm Respiratory: Yes: Regular, CTA Bilaterally Gastrointestinal: Yes: Normal Bowel Sounds, Soft Genitourinary: Yes: Scrotal Edema, Other (scrotal pain and swelling) Musculoskeletal: Yes: Other Neurological: Yes: Alert, Oriented Psychiatric: Yes: Alert, Oriented Labs: CBC, BMP 06/03/18 05:03 06/03/18 05:03 INR, PTT INR 1.01 (0.83-1.09) 05/29/18 10:23 Assessment/Plan scrotal edema swelling pain scrotal phlegmon necrotic skin plan continue abx worried about the increasing necrotic area continue current mgmt urology to revisit the case
--- NOTE | 2018-06-03 12:48 | PN ---
Progress Note (short form) - Note Progress Note: Subjective: No fever or chills. No abd pain, no dysuria . stil has painin L scrotum but much better than before Objective: Vital Signs: Last Vital Signs Temp Pulse Resp BP Pulse Ox 98.3 F 95 H 22 H 165/95 98 06/03/18 05:53 06/03/18 05:53 06/03/18 05:53 06/03/18 05:53 06/02/18 20:49 Laboratory Results - last 24 hr 06/02/18 06/02/18 06/03/18 16:06 21:04 05:03 WBC 7.7 RBC 3.29 L Hgb 8.9 L Hct 26.9 L MCV 81.8 MCH 27.1 MCHC 33.1 RDW 16.4 H Plt Count 430 MPV 7.0 L Absolute Neuts (auto) 5.6 Neutrophils % 72.2 Lymphocytes % 13.0 D Monocytes % 6.5 Eosinophils % 8.0 H D Basophils % 0.3 Nucleated RBC % 0 Sodium Potassium Chloride Carbon Dioxide Anion Gap BUN Creatinine Creat Clearance w eGFR POC Glucometer 137 126 Random Glucose Calcium 06/03/18 06/03/18 06/03/18 05:03 05:48 11:40 WBC RBC Hgb Hct MCV MCH MCHC RDW Plt Count MPV Absolute Neuts (auto) Neutrophils % Lymphocytes % Monocytes % Eosinophils % Basophils % Nucleated RBC % Sodium 142 Potassium 3.2 L Chloride 112 H Carbon Dioxide 18 L Anion Gap 11 BUN 7 Creatinine 1.5 H Creat Clearance w eGFR 50.16 POC Glucometer 146 147 Random Glucose 131 H Calcium 7.8 L Physical Exam: NAD ext: L BKA. no edema on RLE. surgical scars on legs and arms ; Nl hair distribution . R scrotum is less edematous. L scrotum is enlarged, tender, superficial ulcers, and a wound in inferior area with purulent bloody drainage. TTP . ASSESSMENT AND PLAN: 48 y/o man with h/o DM, HTN, L BKA ,MRSA , L LE soft tissue infection who presented with pain and edema in his scrotum. he was diagnosed with scrotal cellulites. 1- Scrotal cellulites and abscess, s/p surgical drainage yesterday - cont zosyn and clinda - cont pain control 2- Microcytic Anemia: iron studies indicate ACD 3- DM : - levemir and SSI 4- KENDRICK : cont to improve - cont IVF 5- HTN: dc lisinopril as renal function has not stabilized yet. add labetalol HLOC Visit type - Emergency Visit Emergency Visit: Yes ED Registration Date: 05/29/18 Care time: The patient presented to the Emergency Department on the above date and was hospitalized for further evaluation of their emergent condition. - New Patient This patient is new to me today: No - Critical Care Critical Care patient: No
[2018-06-03] MEDS: SODIUM CHLORIDE 1,000 ML IV SCH (14:14)
[2018-06-03] MEDS ORDERED: POTASSIUM CHLORIDE TABS 20 MEQ TABLET.ER (FP) PO ONE (14:47)
[2018-06-03] MEDS ORDERED: PT OWN MED DRAWER 7, Y5N ONE (17:12)
[2018-06-03] MEDS: LABETALOL HCL 100 MG TABLET (FP) PO SCH (22:05)
[2018-06-04] MEDS ORDERED: PT OWN MED DRAWER 7, Y5N ONE ×3 (00:12→12:34)
[2018-06-04] MEDS: CLINDAMYCIN HCL 150 MG CAPSULE (FP) PO SCH ×3 (00:15→12:40)
[2018-06-04] MEDS ORDERED: PIPERACILLIN/TAZOBACTAM 3.375 GM VIAL IVPB ONE ×3 (01:15→16:56)
[2018-06-04] MEDS ORDERED: DEXTROSE 5%-WATER - 50 ML IVPB ONE ×3 (01:15→16:57)
[2018-06-04] MEDS: PIPERACILLIN/TAZOB 3.375 GM 3.375 GM in DEXTROSE 5%-WATER - 50 ML IVPB SCH ×3 (02:03→17:59)
--- NOTE | 2018-06-04 06:19 | PN ---
Physical Exam: SUBJECTIVE: Patient seen and examined. Surgical drainage 06/02. BP elevated overnight to systolic in 160s . Received labetolol and amlodipine with good response. OBJECTIVE: Vital Signs Period Temp Pulse Resp BP Sys/Monet Pulse Ox Last 24 Hr 98.2 F-98.9 F 91-100 18-20 122-168/71-109 96-98 GENERAL: The patient is awake, alert, and fully oriented, in no acute painful distress. LUNGS: Breath sounds equal, clear to auscultation bilaterally HEART: Regular rate and rhythm, S1, S2 ABDOMEN: obese, Soft, nontender, EXTREMITIES: L BKA , with prosthetic leg in place, RLE without edema NEUROLOGICAL: AAO x3, symmetric face, no focal neurol deficits PSYCH: Less anxious scrotum: Absent edema on R scrotum, L scrotum swollen, 2 confluences of indurated skin anteriorly measuring about 4x2 cm with necrosis about 0.5x0.5cm, posterior inferior collection, also indurated with pus at base,. L scrotum less tender, supported with abdomino-pad, yelowish stains. No active pus drainage or bleeding visible. Laboratory Results - last 24 hr 06/03/18 06/03/18 06/03/18 05:03 05:03 11:40 WBC 7.7 RBC 3.29 L Hgb 8.9 L Hct 26.9 L MCV 81.8 MCH 27.1 MCHC 33.1 RDW 16.4 H Plt Count 430 MPV 7.0 L Absolute Neuts (auto) 5.6 Neutrophils % 72.2 Lymphocytes % 13.0 D Monocytes % 6.5 Eosinophils % 8.0 H D Basophils % 0.3 Nucleated RBC % 0 Sodium 142 Potassium 3.2 L Chloride 112 H Carbon Dioxide 18 L Anion Gap 11 BUN 7 Creatinine 1.5 H Creat Clearance w eGFR 50.16 POC Glucometer 147 Random Glucose 131 H Calcium 7.8 L 06/03/18 06/03/18 16:58 21:59 WBC RBC Hgb Hct MCV MCH MCHC RDW Plt Count MPV Absolute Neuts (auto) Neutrophils % Lymphocytes % Monocytes % Eosinophils % Basophils % Nucleated RBC % Sodium Potassium Chloride Carbon Dioxide Anion Gap BUN Creatinine Creat Clearance w eGFR POC Glucometer 134 137 Random Glucose Calcium Ambulatory Orders Acetaminophen [Tylenol .Regular Strength -] 650 mg PO Q4H PRN #0 tablet Insulin (Levemir) [Levemir Vial] 15 units SQ AM #1 vial 07/17/17 Lisinopril [Prinivil] 30 mg PO DAILY tablet 07/17/17 Metoclopramide HCl 5 mg PO ASDIR 05/29/18 Pantoprazole Sodium [Protonix -] 20 mg PO DAILY 05/29/18 Current Medications Amlodipine Besylate (Norvasc -) 10 mg PO DAILY [facility] Last Admin: 06/04/18 11:13 Dose: 10 mg Docusate Sodium (Colace -) 100 mg PO BID PRN PRN Reason: CONSTIPATION Last Admin: 06/02/18 18:32 Dose: 100 mg Heparin Sodium (Porcine) (Heparin -) 5,000 unit SQ TID [facility] Last Admin: 06/04/18 14:01 Dose: 5,000 unit Piperacillin Sod/Tazobactam (Sod 3.375 gm/ Dextrose) 50 mls @ 100 mls/hr IVPB Q8H-IV [facility]; Protocol Last Admin: 06/04/18 11:13 Dose: 100 mls/hr Sodium Chloride (Normal Saline -) 1,000 mls @ 100 mls/hr IV ASDIR [facility] Last Admin: 06/04/18 14:12 Dose: Not Given Insulin Aspart (Novolog Vial Sliding Scale -) 1 vial SQ ACHS [facility]; Protocol Last Admin: 06/04/18 12:27 Dose: 2 unit Insulin Detemir (Levemir Vial) 10 units SQ AM [facility] Last Admin: 06/04/18 06:24 Dose: 10 units Labetalol HCl (Normodyne -) 100 mg PO BID [facility] Last Admin: 06/04/18 11:12 Dose: 100 mg Morphine Sulfate (Morphine Sulfate) 2 mg IVPUSH Q4H PRN PRN Reason: PAIN LEVEL 6-10 Last Admin: 06/04/18 11:08 Dose: 2 mg Pantoprazole Sodium (Protonix -) 20 mg PO DAILY [facility] Last Admin: 06/04/18 11:13 Dose: 20 mg Prochlorperazine Edisylate (Compazine Injection -) 2.5 mg IVPB Q4H PRN PRN Reason: NAUSEA AND/OR VOMITING Last Admin: 06/01/18 21:07 Dose: 2.5 mg Microbiology 05/29/18 10:23 Blood - Peripheral Venous Blood Culture - Final NO GROWTH AFTER 5 DAYS INCUBATION 05/29/18 10:10 Blood - Peripheral Venous Blood Culture - Final NO GROWTH AFTER 5 DAYS INCUBATION 05/29/18 10:26 Scrotum Gram Stain - Final 05/29/18 10:26 Scrotum Wound Culture - Final Staphylococcus Aureus Staphylococcus Coagulase Neg Enterococcus Faecalis Escherichia Coli 05/29/18 16:00 Urine - Urine Clean Catch Urine Culture - Final NO GROWTH OBTAINED ASSESSMENT/PLAN: 48 y/o M w/ PHMx uncontrolled DM, L BKA, multiple soft tissue infections, p/w L hemiscrotal pain, swelling. Admitted for sepsis 2/2 cellulitis #Sepsis 2/2 to L hemiscrotal cellulitis -Surgical drainage 06/02 -ID consulted: Dr Nolen -shazia Zosyjo (05/29) -Clinda (06/01) - switched from ceftriaxone and vanc -BCx NGTD, UCx negative, WCx (MSSA, coag- Staph, E faecalis, E coli) -morphine 2q4 and oxy 5q4 PRN for pain #HTN -Labetolol 300mg, norvasc 10mg added #nausea/vomiting -compazine PRN #DM -Sugars improved on levemir -ISS (not given) + levemir 10U AM -BGM #Anemia -microcytic -ACD likely secondary to CKD #KENDRICK vs CKD -Cr 2.1 on presentation, stable around 1.6 -Labetolol 100mg bid, Amlodipine 10mg daily -renal US- -FENa 1.6 -monitor #hypokalemia -High threshold for repletion in CKD -monitor as CKD pt #FEN -monitor lytes -diabetic/sodium-controlled diet #DVT -heparin subq -senna/colace #dispo -med/surg Visit type - Emergency Visit Emergency Visit: Yes ED Registration Date: 05/29/18 Care time: The patient presented to the Emergency Department on the above date and was hospitalized for further evaluation of their emergent condition. - New Patient This patient is new to me today: No - Critical Care Critical Care patient: No - Discharge Referral [facility]erred to [facility] Med [facility] No
[2018-06-04] MEDS: HEPARIN NA (PORCINE) 5,000 UNITS/ML 1ML VIAL SQ SCH ×3 (06:23→21:56)
[2018-06-04] MEDS: INSULIN (LEVEMIR) 100 UNITS/ML UNITS SQ SCH (06:24)
[2018-06-04] MEDS: INSULIN SLIDING SCALE (NOVOLOG) 1 VIAL SQ SCH ×4 (06:24→21:56)
[2018-06-04 07:16] LABS: ANION GAP 10 MMOL/L (8-16); BLOOD UREA NITROGEN 5 mg/dL (7-18); CALCIUM 7.7 mg/dL (8.5-10.1); CHLORIDE 110 mmol/L (98-107); CO2 19 mmol/L (21-32); CREATININE 1.6 mg/dL (0.55-1.3); GLUCOSE,RANDOM 185 mg/dL (74-106); POTASSIUM 3.2 mmol/L (3.5-5.1); SODIUM 139 mmol/L (136-145)
[2018-06-04] MEDS: MORPHINE SULFATE 2 MG/ML VIAL IVPUSH PRN ×2 (11:08→20:35)
[2018-06-04] MEDS: LABETALOL HCL 100 MG TABLET (FP) PO SCH ×2 (11:12→21:56)
[2018-06-04] MEDS: PANTOPRAZOLE 20 MG TABLET (FP) PO SCH (11:13)
[2018-06-04] MEDS: amLODIPine BESYLATE 10 MG TABLET (FP) PO SCH (11:13)
[2018-06-04] MEDS ORDERED: INSULIN (NOVOLOG) ASPART 100 UNITS/ML 10ML VIAL ONE ×3 (12:35→21:26)
--- NOTE | 2018-06-04 12:50 | PN ---
Progress Note, Physician History of Present Illness: continues to have pain in the scrotum wound stable pain better - Current Medication List Current Medications: Active Medications Amlodipine Besylate (Norvasc -) 10 mg PO DAILY [facility] Last Admin: 06/04/18 11:13 Dose: 10 mg Clindamycin HCl (Cleocin -) 300 mg PO Q6HPO [facility] Last Admin: 06/04/18 12:40 Dose: 300 mg Docusate Sodium (Colace -) 100 mg PO BID PRN PRN Reason: CONSTIPATION Last Admin: 06/02/18 18:32 Dose: 100 mg Heparin Sodium (Porcine) (Heparin -) 5,000 unit SQ TID [facility] Last Admin: 06/04/18 06:23 Dose: 5,000 unit Piperacillin Sod/Tazobactam (Sod 3.375 gm/ Dextrose) 50 mls @ 100 mls/hr IVPB Q8H-IV [facility]; Protocol Last Admin: 06/04/18 11:13 Dose: 100 mls/hr Sodium Chloride (Normal Saline -) 1,000 mls @ 100 mls/hr IV ASDIR [facility] Last Admin: 06/03/18 14:14 Dose: Not Given Insulin Aspart (Novolog Vial Sliding Scale -) 1 vial SQ ACHS [facility]; Protocol Last Admin: 06/04/18 12:27 Dose: 2 unit Insulin Detemir (Levemir Vial) 10 units SQ AM [facility] Last Admin: 06/04/18 06:24 Dose: 10 units Labetalol HCl (Normodyne -) 100 mg PO BID [facility] Last Admin: 06/04/18 11:12 Dose: 100 mg Morphine Sulfate (Morphine Sulfate) 2 mg IVPUSH Q4H PRN PRN Reason: PAIN LEVEL 6-10 Last Admin: 06/04/18 11:08 Dose: 2 mg Pantoprazole Sodium (Protonix -) 20 mg PO DAILY [facility] Last Admin: 06/04/18 11:13 Dose: 20 mg Prochlorperazine Edisylate (Compazine Injection -) 2.5 mg IVPB Q4H PRN PRN Reason: NAUSEA AND/OR VOMITING Last Admin: 06/01/18 21:07 Dose: 2.5 mg - Objective Vital Signs: Vital Signs Temperature 98.7 F 06/04/18 09:00 Pulse Rate 93 H 06/04/18 09:00 Respiratory Rate 18 06/04/18 09:00 Blood Pressure 168/102 06/04/18 09:00 O2 Sat by Pulse Oximetry (%) 96 06/03/18 21:00 Constitutional: Yes: No Distress, Calm Cardiovascular: Yes: Regular Rate and Rhythm Respiratory: Yes: Regular, CTA Bilaterally Gastrointestinal: Yes: Normal Bowel Sounds, Soft Musculoskeletal: Yes: WNL Extremities: Yes: Other Neurological: Yes: Alert, Oriented Psychiatric: Yes: Alert, Oriented Labs: CBC, BMP 06/03/18 05:03 06/04/18 05:30 INR, PTT INR 1.01 (0.83-1.09) 05/29/18 10:23 Assessment/Plan scrotal edema swelling pain scrotal phlegmon necrotic skin plan continue abx patient stable will stop clinda continue zosyn await for urology input
--- NOTE | 2018-06-04 12:53 | PN ---
Progress Note, Physician History of Present Illness: stable pain - Current Medication List Current Medications: Active Medications Amlodipine Besylate (Norvasc -) 10 mg PO DAILY [facility] Last Admin: 06/04/18 11:13 Dose: 10 mg Docusate Sodium (Colace -) 100 mg PO BID PRN PRN Reason: CONSTIPATION Last Admin: 06/02/18 18:32 Dose: 100 mg Heparin Sodium (Porcine) (Heparin -) 5,000 unit SQ TID [facility] Last Admin: 06/04/18 06:23 Dose: 5,000 unit Piperacillin Sod/Tazobactam (Sod 3.375 gm/ Dextrose) 50 mls @ 100 mls/hr IVPB Q8H-IV [facility]; Protocol Last Admin: 06/04/18 11:13 Dose: 100 mls/hr Sodium Chloride (Normal Saline -) 1,000 mls @ 100 mls/hr IV ASDIR [facility] Last Admin: 06/03/18 14:14 Dose: Not Given Insulin Aspart (Novolog Vial Sliding Scale -) 1 vial SQ ACHS [facility]; Protocol Last Admin: 06/04/18 12:27 Dose: 2 unit Insulin Detemir (Levemir Vial) 10 units SQ AM [facility] Last Admin: 06/04/18 06:24 Dose: 10 units Labetalol HCl (Normodyne -) 100 mg PO BID [facility] Last Admin: 06/04/18 11:12 Dose: 100 mg Morphine Sulfate (Morphine Sulfate) 2 mg IVPUSH Q4H PRN PRN Reason: PAIN LEVEL 6-10 Last Admin: 06/04/18 11:08 Dose: 2 mg Pantoprazole Sodium (Protonix -) 20 mg PO DAILY [facility] Last Admin: 06/04/18 11:13 Dose: 20 mg Prochlorperazine Edisylate (Compazine Injection -) 2.5 mg IVPB Q4H PRN PRN Reason: NAUSEA AND/OR VOMITING Last Admin: 06/01/18 21:07 Dose: 2.5 mg - Objective Vital Signs: Vital Signs Temperature 98.7 F 06/04/18 09:00 Pulse Rate 93 H 06/04/18 09:00 Respiratory Rate 18 06/04/18 09:00 Blood Pressure 168/102 06/04/18 09:00 O2 Sat by Pulse Oximetry (%) 96 06/03/18 21:00 Constitutional: Yes: Calm, Mild Distress Cardiovascular: Yes: Regular Rate and Rhythm Respiratory: Yes: Regular, CTA Bilaterally Gastrointestinal: Yes: Normal Bowel Sounds, Soft Musculoskeletal: Yes: Other Extremities: Yes: Other Neurological: Yes: Alert, Oriented Psychiatric: Yes: Alert, Oriented Labs: CBC, BMP 06/03/18 05:03 06/04/18 05:30 INR, PTT INR 1.01 (0.83-1.09) 05/29/18 10:23 Assessment/Plan scrotal edema swelling pain scrotal phlegmon necrotic skin plan continue abx patient stable will stop clinda tomorrow continue zosyn await for urology input
--- NOTE | 2018-06-04 13:55 | PN ---
Progress Note (short form) - Note Progress Note: afebrile s/p I and D yesterday no active purulent drainage no obvious residual collection wound care antibiotics as per ID
[2018-06-04] MEDS: SODIUM CHLORIDE 1,000 ML IV SCH (14:12)
--- NOTE | 2018-06-04 15:32 | PN ---
Teaching Attending Note Name of Resident: Casi Fitzgerald ATTENDING PHYSICIAN STATEMENT I saw and evaluated the patient. I reviewed the resident's note and discussed the case with the resident. I agree with the resident's findings and plan as documented. SUBJECTIVE: No fever or chills. scrotal pain is better OBJECTIVE: NAD Ext: L BKA. no edema on RLE. surgical scars on legs and arms ; Nl hair distribution. R scrotum is less edematous. L scrotum is enlarged, tender, superficial ulcers, and a wound in inferior area with purulent drainage. TTP . ASSESSMENT AND PLAN: 48 y/o man with h/o DM, HTN, L BKA ,MRSA , L LE soft tissue infection who presented with pain and edema in his scrotum. he was diagnosed with scrotal cellulites. 1- Scrotal cellulites and abscess, s/p surgical drainage 06/03 - cont zosyn . off clinda - cont pain control 2- Microcytic Anemia: iron studies indicate ACD 3- DM : - levemir and SSI 4- KENDRICK : cont to improve - cont IVF 5- HTN: cont labetalol and Norvasc HLOC
[2018-06-05] MEDS ORDERED: DEXTROSE 5%-WATER - 50 ML IVPB ONE ×4 (02:57→23:14)
[2018-06-05] MEDS ORDERED: PIPERACILLIN/TAZOBACTAM 3.375 GM VIAL IVPB ONE ×4 (02:57→23:14)
[2018-06-05] MEDS: PIPERACILLIN/TAZOB 3.375 GM 3.375 GM in DEXTROSE 5%-WATER - 50 ML IVPB SCH ×3 (03:23→17:20)
[2018-06-05] MEDS: INSULIN (LEVEMIR) 100 UNITS/ML UNITS SQ SCH (06:53)
[2018-06-05] MEDS: HEPARIN NA (PORCINE) 5,000 UNITS/ML 1ML VIAL SQ SCH ×2 (06:53→13:39)
[2018-06-05] MEDS: INSULIN SLIDING SCALE (NOVOLOG) 1 VIAL SQ SCH ×4 (06:53→22:29)
[2018-06-05 06:58] LABS: BASO % 0.4 % (0-2.0); HEMATOCRIT 28.8 % (35.4-49); HEMOGLOBIN 9.5 GM/dL (11.7-16.9); MCH 26.7 pg (25.7-33.7); MCHC 32.9 g/dl (32.0-35.9); MEAN CELL VOLUME 81.3 fl (80-96); MONO % 4.5 % (3.8-10.2); NEUT % 70.1 % (42.8-82.8); PLATELET COUNT 460 K/MM3 (134-434); RBC 3.54 M/mm3 (4.00-5.60); RDW 16.5 % (11.9-15.9); WHITE BLOOD COUNT 8.5 K/mm3 (4.0-10.0)
[2018-06-05 07:29] LABS: ANION GAP 9 MMOL/L (8-16); BLOOD UREA NITROGEN 5 mg/dL (7-18); CALCIUM 7.9 mg/dL (8.5-10.1); CHLORIDE 109 mmol/L (98-107); CO2 20 mmol/L (21-32); CREATININE 1.7 mg/dL (0.55-1.3); GLUCOSE,RANDOM 174 mg/dL (74-106); MAGNESIUM 1.9 mg/dL (1.8-2.4); PHOSPHOROUS 3.5 mg/dL (2.5-4.9); POTASSIUM 3.1 mmol/L (3.5-5.1); SODIUM 139 mmol/L (136-145)
[2018-06-05] MEDS: amLODIPine BESYLATE 10 MG TABLET (FP) PO SCH (09:23)
[2018-06-05] MEDS: PANTOPRAZOLE 20 MG TABLET (FP) PO SCH (09:23)
[2018-06-05] MEDS: LABETALOL HCL 100 MG TABLET (FP) PO SCH ×2 (09:23→22:29)
[2018-06-05] MEDS ORDERED: POTASSIUM CHLORIDE ORAL LIQUID 20 MEQ/15 ML PO ONE (12:45)
[2018-06-05] MEDS ORDERED: oxyCODONE HCL 5 MG TABLET PO PRN (15:50)
--- NOTE | 2018-06-05 15:53 | PN ---
Teaching Attending Note Name of Resident: Leigh Hendrix ATTENDING PHYSICIAN STATEMENT I saw and evaluated the patient. I reviewed the resident's note and discussed the case with the resident. I agree with the resident's findings and plan as documented. SUBJECTIVE: pain in scrotum has improved OBJECTIVE: NAD Ext: L BKA. no edema on RLE. surgical scars on legs and arms ; Nl hair distribution. R scrotum is less edematous. L scrotum is almost normal size now , tender, superficial ulcers, and a wound in inferior area with purulent drainage. TTP . ASSESSMENT AND PLAN: 48 y/o man with h/o DM, HTN, L BKA ,MRSA , L LE soft tissue infection who presented with pain and edema in his scrotum. he was diagnosed with scrotal cellulites. 1- Scrotal cellulites and abscess, s/p surgical drainage 06/03 - cont zosyn . -dc morphine and add oxy 2- Microcytic Anemia: iron studies indicate ACD 3- DM : - levemir and SSI 4- KENDRICK : patient refuses to use IVF x 2 days . need f/u with renal as out pt . can't r/o underlying diabetic nephropathy 5- HTN: cont labetalol and Norvasc HLOC patient threatened to leave AMA. advised that he needs IVabx , pending ID consult
[2018-06-05] MEDS: SODIUM CHLORIDE 1,000 ML IV SCH (17:14)
--- NOTE | 2018-06-05 19:55 | PN ---
Physical Exam: SUBJECTIVE: Patient seen and examined this morning with no new complaints. Saws the scrotal pain is much better controlled. Refused Tele monitor overnight. OBJECTIVE: Vital Signs Period Temp Pulse Resp BP Sys/Monet Pulse Ox Last 24 Hr 97.9 F-98.3 F 85-96 18-20 122-144/71-94 100-100 GENERAL: The patient is awake, alert, and fully oriented, in no acute distress. HEAD: NCAT EYES: PERRL, EOMI ENT: oropharynx clear without exudates, moist mucous membranes. NECK: supple, No JVD LUNGS: Breath sounds equal, clear to auscultation bilaterally, no wheezes HEART: Regular rate and rhythm, S1, S2 without murmur. ABDOMEN: Soft, nontender, nondistended, normoactive bowel sounds, no guarding : L hemiscrotum swelling improved with 1-2cm erythematous, indurated lesions that are draining pus and are tender to touch; R hemiscrotum normal. Scrotum supported with abdominal pad in his trousers, covered with yellow stains. EXTREMITIES: Skin graft scar on R arm. Right LE has 2+ pulses and No edema. Left LE BKA. NEUROLOGICAL: Cranial nerves II through XII grossly intact. Normal speech, gait not observed. PSYCH: Normal mood, normal affect. SKIN: Warm, dry, normal turgor, no rashes or lesions noted Laboratory Results - last 24 hr 06/04/18 06/05/18 06/05/18 21:55 06:20 06:20 WBC 8.5 RBC 3.54 L Hgb 9.5 L Hct 28.8 L MCV 81.3 MCH 26.7 MCHC 32.9 RDW 16.5 H Plt Count 460 H MPV 7.0 L Absolute Neuts (auto) 6.0 Neutrophils % 70.1 Lymphocytes % 17.0 D Monocytes % 4.5 Eosinophils % 8.0 H Basophils % 0.4 Nucleated RBC % 0 Sodium 139 Potassium 3.1 L Chloride 109 H Carbon Dioxide 20 L Anion Gap 9 BUN 5 L Creatinine 1.7 H Creat Clearance w eGFR 43.42 POC Glucometer 141 Random Glucose 174 H Calcium 7.9 L Phosphorus 3.5 Magnesium 1.9 06/05/18 06/05/18 06/05/18 06:33 12:16 17:16 WBC RBC Hgb Hct MCV MCH MCHC RDW Plt Count MPV Absolute Neuts (auto) Neutrophils % Lymphocytes % Monocytes % Eosinophils % Basophils % Nucleated RBC % Sodium Potassium Chloride Carbon Dioxide Anion Gap BUN Creatinine Creat Clearance w eGFR POC Glucometer 185 223 112 Random Glucose Calcium Phosphorus Magnesium Microbiology 05/29/18 10:23 Blood - Peripheral Venous Blood Culture - Final NO GROWTH AFTER 5 DAYS INCUBATION 05/29/18 10:10 Blood - Peripheral Venous Blood Culture - Final NO GROWTH AFTER 5 DAYS INCUBATION 05/29/18 10:26 Scrotum Gram Stain - Final 05/29/18 10:26 Scrotum Wound Culture - Final Staphylococcus Aureus Staphylococcus Coagulase Neg Enterococcus Faecalis Escherichia Coli 05/29/18 16:00 Urine - Urine Clean Catch Urine Culture - Final NO GROWTH OBTAINED Active Medications Amlodipine Besylate (Norvasc -) 10 mg PO DAILY [facility] Last Admin: 06/05/18 09:23 Dose: 10 mg Docusate Sodium (Colace -) 100 mg PO BID PRN PRN Reason: CONSTIPATION Last Admin: 06/02/18 18:32 Dose: 100 mg Heparin Sodium (Porcine) (Heparin -) 5,000 unit SQ TID [facility] Last Admin: 06/05/18 13:39 Dose: 5,000 unit Piperacillin Sod/Tazobactam (Sod 3.375 gm/ Dextrose) 50 mls @ 100 mls/hr IVPB Q8H-IV [facility]; Protocol Last Admin: 06/05/18 17:20 Dose: 100 mls/hr Sodium Chloride (Normal Saline -) 1,000 mls @ 100 mls/hr IV ASDIR [facility] Last Admin: 06/05/18 17:14 Dose: Not Given Insulin Aspart (Novolog Vial Sliding Scale -) 1 vial SQ ACHS [facility]; Protocol Last Admin: 06/05/18 17:17 Dose: Not Given Insulin Detemir (Levemir Vial) 10 units SQ AM [facility] Last Admin: 06/05/18 06:53 Dose: 10 units Labetalol HCl (Normodyne -) 100 mg PO BID [facility] Last Admin: 06/05/18 09:23 Dose: 100 mg Oxycodone HCl (Roxicodone -) 5 mg PO Q6H PRN PRN Reason: PAIN LEVEL 6-10 Pantoprazole Sodium (Protonix -) 20 mg PO DAILY [facility] Last Admin: 06/05/18 09:23 Dose: 20 mg Prochlorperazine Edisylate (Compazine Injection -) 2.5 mg IVPB Q4H PRN PRN Reason: NAUSEA AND/OR VOMITING Last Admin: 06/01/18 21:07 Dose: 2.5 mg IMAGING: Scrotum US: Normal testicular sonogram with no evidence of torsion or acute pathology. Extensive left scrotal thickening consistent with infection/ phlegmon. No discrete abscess present. Kidney US: Morphologically normal kidneys with no evidence of hydronephrosis or acute pathology. CXR: Shallow inspiration. No evidence of active pulmonary disease. EKG: ACCELERATED JUNCTIONAL RHYTHM ASSESSMENT/PLAN: 48 y/o M w/ PHMx uncontrolled DM, L BKA, multiple soft tissue infections, p/w L hemiscrotal pain, swelling. Admitted for sepsis 2/2 cellulitis 1. Sepsis 2/2 to L hemiscrotal cellulitis and Abscess -Surgical drainage 06/03 -ID consulted: Dr Nolen--Stop Clinda (06/01), Continue Zosyn (05/29) -Urology consulted: Dr. Britton--wound care, antibiotics as per ID -Blood, urine and wound cultures noted above -NS @ 100mls -Oxycodone 5mg q6 PRN 2. HTN -Controlled -Continue Labetolol 300mg, norvasc 10mg 3. Anemia of chronic disease -likely secondary to CKD -microcytic -Transferrrin 145, FE 7, TIBC 183, Iron Sat 4, Ferritin 124.2 4. KENDRICK vs CKD -Cr 2.2 on presentation trending down -Patient has refused IVF x 2 days as being attached to the IV stand causes him clostraphobia -Renal US noted above -FENa 1.6 -monitor; will likely need renal follow up outpatient 5. DM -ISS ACHS + levemir 10U AM -BGM ACHS 6. hypokalemia -40 mEq PO given today -continue to monitor 7. FEN -continues to refuse IVF -monitor lytes as K+ continues to decrease -diabetic/sodium-controlled diet 8. DVT -heparin subq TID -senna/colace #dispo -med/surg Visit type - Emergency Visit Emergency Visit: Yes ED Registration Date: 05/29/18 Care time: The patient presented to the Emergency Department on the above date and was hospitalized for further evaluation of their emergent condition. - New Patient This patient is new to me today: Yes Date on this admission: 06/05/18 - Critical Care Critical Care patient: No
[2018-06-05] MEDS ORDERED: MAG HYDROX/AL HYDROX/SIMETH 30 ML UNIT-DOSE CUP PO ONE (22:50)
[2018-06-06] MEDS: PIPERACILLIN/TAZOB 3.375 GM 3.375 GM in DEXTROSE 5%-WATER - 50 ML IVPB SCH ×2 (01:24→09:37)
[2018-06-06] MEDS: INSULIN SLIDING SCALE (NOVOLOG) 1 VIAL SQ SCH ×2 (06:02→14:25)
[2018-06-06] MEDS: INSULIN (LEVEMIR) 100 UNITS/ML UNITS SQ SCH (06:45)
[2018-06-06 06:53] LABS: ANION GAP 11 MMOL/L (8-16); BLOOD UREA NITROGEN 4 mg/dL (7-18); CALCIUM 8.5 mg/dL (8.5-10.1); CHLORIDE 111 mmol/L (98-107); CO2 19 mmol/L (21-32); CREATININE 1.7 mg/dL (0.55-1.3); GLUCOSE,RANDOM 145 mg/dL (74-106); POTASSIUM 3.5 mmol/L (3.5-5.1); SODIUM 141 mmol/L (136-145)
[2018-06-06] MEDS ORDERED: PIPERACILLIN/TAZOBACTAM 3.375 GM VIAL IVPB ONE (08:58)
[2018-06-06] MEDS ORDERED: DEXTROSE 5%-WATER - 50 ML IVPB ONE (08:59)
[2018-06-06] MEDS: PANTOPRAZOLE 20 MG TABLET (FP) PO SCH (09:37)
[2018-06-06] MEDS: amLODIPine BESYLATE 10 MG TABLET (FP) PO SCH (09:37)
[2018-06-06] MEDS: LABETALOL HCL 100 MG TABLET (FP) PO SCH (09:37)
[2018-06-06 13:25] VITALS: BP 148/87; PULSE 92; TEMP 98.4
[2018-06-06] MEDS: SODIUM CHLORIDE 1,000 ML IV SCH (13:30)
--- NOTE | 2018-06-06 14:26 | DS ---
Physical Exam: SUBJECTIVE: Patient seen and examined this morning at bedside. Patient complains of 2 episodes of NBNB vomiting and 4 episodes of loose, non bloody stools following eating lettuce for dinner last night. Says he is able to ambulate much more and that his testicular pain has improved. Denies any cramping abdominal pain, fevers, chills, chest pain, SOB. OBJECTIVE: Vital Signs Period Temp Pulse Resp BP Sys/Monet Pulse Ox Last 24 Hr 97.9 F-98.4 F 85-92 16-20 123-155/81-98 100-100 PHYSICAL EXAM GENERAL: The patient is awake, alert, and fully oriented, in no acute distress. HEAD: NCAT EYES: PERRL, EOMI ENT: oropharynx clear without exudates, moist mucous membranes. NECK: supple, No JVD LUNGS: Breath sounds equal, clear to auscultation bilaterally, no wheezes HEART: Regular rate and rhythm, S1, S2 without murmur. ABDOMEN: Soft, nontender, nondistended, normoactive bowel sounds, no guarding : L hemiscrotum swelling improved. 1-2cm erythematous, indurated lesion with surrounding Dry pus, Minimal tenderness to touch; Normal R hemiscrotu. No longer using abdominal pad to support scrotum EXTREMITIES: Skin graft scar on R arm. Right LE has 2+ pulses and No edema. Left LE BKA. NEUROLOGICAL: Cranial nerves II through XII grossly intact. Normal speech, gait not observed. SKIN: Warm, dry, no rashes or lesions noted LABS Laboratory Results - last 24 hr 06/05/18 06/05/18 06/06/18 17:16 22:26 05:30 Sodium 141 Potassium 3.5 Chloride 111 H Carbon Dioxide 19 L Anion Gap 11 BUN 4 L Creatinine 1.7 H Creat Clearance w eGFR 43.42 POC Glucometer 112 191 Random Glucose 145 H Calcium 8.5 06/06/18 05:48 Sodium Potassium Chloride Carbon Dioxide Anion Gap BUN Creatinine Creat Clearance w eGFR POC Glucometer 137 Random Glucose Calcium Microbiology 05/29/18 10:23 Blood - Peripheral Venous Blood Culture - Final NO GROWTH AFTER 5 DAYS INCUBATION 05/29/18 10:10 Blood - Peripheral Venous Blood Culture - Final NO GROWTH AFTER 5 DAYS INCUBATION 05/29/18 10:26 Scrotum Gram Stain - Final 05/29/18 10:26 Scrotum Wound Culture - Final Staphylococcus Aureus Staphylococcus Coagulase Neg Enterococcus Faecalis Escherichia Coli 05/29/18 16:00 Urine - Urine Clean Catch Urine Culture - Final NO GROWTH OBTAINED IMAGING: Scrotum US: Normal testicular sonogram with no evidence of torsion or acute pathology. Extensive left scrotal thickening consistent with infection/ phlegmon. No discrete abscess present. Kidney US: Morphologically normal kidneys with no evidence of hydronephrosis or acute pathology. CXR: Shallow inspiration. No evidence of active pulmonary disease. EKG: [facility] COURSE: Date of Admission:05/29/18 Date of Discharge: 06/06/18 48 y/o obese male with a PMHx of uncontrolled diabetes, L BKA, multiple soft tissue infections, presented to the ED with a tender and swollen L testicle and a 1-2cm, L testicular lesion with no drainage was present. ID was consulted and he completed an eight day course of Zosyn and 3 days of clindamycin. Urology was consulted and an I&D was performed on 06/02. The wound site is no longer draining purulent discharge, his WBC count resolved and is pain has improved significantly. His blood glucose was 457 on admission as patient admits noncompliance with home regimen. His blood glucose was managed with sliding scale and 10 units levemir during his hospital stay. His Cr began to rise and his home dose Lisinopril was held. A kidney ultrasound was done, noted above, and his Cr improved with IVF. His BP was managed with Labetalol and Norvasc. His hypokalemia resolved. Patient was told that further IV Antibiotic treatments were needed but he decided to leave against medical advice. Patient was advised the risks of not receiving treatment including Sepsis, loss of male organs, further spread of necrotizing infection, but insisted on leaving. 10 days of Augmentin 500mg BID was sent to his pharmacy with instruction to follow up with his PCP and Urology. Minutes to complete discharge: 40 Discharge Summary Reason For Visit: SEPSIS Current Active Problems KENDRICK (acute kidney injury) (Acute) Cellulitis (Acute) Hypokalemia (Acute) Sepsis (Acute) Condition: Improved - Instructions Diet, Activity, Other Instructions: You were admitted to the hospital for testicular pain. An incision and drainage was done to remove the abscess. It is important you follow up with urology (Dr. Pastor) within 1 week after discharge to ensure it is healing properly. You were treated with IV Antibiotics to help treat the infection. You are being discharged home on Augmentin 500mg Twice a day for 10 days. Please take this medication with food or milk. Your blood sugar was very high on admission. It could have been a result of not taking your insulin consistently. You only required 10 units of Levemir during your hospital stay so you are being discharged on 10 units of Levemir in the morning instead of 15 units. It is important you follow up with your primary care doctor to ensure tight blood sugar control. If you do not have a primary care physician, please follow up with Dr. Hendrix at the [facility]. One of your kidney tests (Creatinine) was elevated however imaging did not show abnormalities. You need to stay hydrated to ensure proper kidney function. It is important you follow up with a kidney doctor outpatient as diabetes can also hurt your kidneys. Your home dose Lisinopril was also not given during your stay. Please discontinue your home dose Lisinopril. Instead, you are being discharged on Labatelol and Norvasc. Please take these as prescribed. Continue all your other medications as prescribed Please return to the ER if you have any signs or symptoms of chest pain, shortness of breath, uncontrollable fever, chills, nausea, vomiting, numbness, tingling, or weakness in any part of your body, changes in vision, or slurred speech. Please return to the ER if symptoms persist, worsen, or new symptoms arise. Referrals: Marito Chavez MD [Staff Physician] - 06/12/18 (See Dr. Hendrix on Monday, 2:00pm) Jordan Pastor MD., MD [Staff Physician] - 1 Week Anderson Phillips MD [Staff Physician] - 1 Week Disposition: AGAINST MEDICAL ADVICE - Home Medications Comprehensive Discharge Medication List: Ambulatory Orders Pantoprazole Sodium [Protonix -] 20 mg PO DAILY 05/29/18 Amlodipine Besylate [Norvasc -] 10 mg PO DAILY #30 tablet 06/06/18 Amoxicillin/Potassium Clav [Augmentin 500-125 Tablet] 1 each PO BID #20 tablet 06/06/18 Insulin (Levemir) [Levemir Vial] 10 units SQ AM #30 syringe 06/06/18 Labetalol HCl [Normodyne -] 100 mg PO BID #60 tablet 06/06/18 This patient is new to me today: Yes Date on this admission: 06/06/18 Emergency Visit: Yes ED Registration Date: 05/29/18 Care time: The patient presented to the Emergency Department on the above date and was hospitalized for further evaluation of their emergent condition. Critical Care patient: No - Discharge Referral Referred to [facility] Med [facility] No
--- NOTE | 2018-06-06 14:39 | PN ---
Progress Note, Physician History of Present Illness: doing well no issues patient improving - Current Medication List Current Medications: Active Medications Amlodipine Besylate (Norvasc -) 10 mg PO DAILY [facility] Last Admin: 06/06/18 09:37 Dose: 10 mg Docusate Sodium (Colace -) 100 mg PO BID PRN PRN Reason: CONSTIPATION Last Admin: 06/02/18 18:32 Dose: 100 mg Piperacillin Sod/Tazobactam (Sod 3.375 gm/ Dextrose) 50 mls @ 100 mls/hr IVPB Q8H-IV [facility]; Protocol Last Admin: 06/06/18 09:37 Dose: 100 mls/hr Sodium Chloride (Normal Saline -) 1,000 mls @ 100 mls/hr IV ASDIR [facility] Last Admin: 06/05/18 17:14 Dose: Not Given Insulin Aspart (Novolog Vial Sliding Scale -) 1 vial SQ ACHS [facility]; Protocol Last Admin: 06/06/18 06:02 Dose: Not Given Insulin Detemir (Levemir Vial) 10 units SQ AM [facility] Last Admin: 06/06/18 06:45 Dose: 10 units Labetalol HCl (Normodyne -) 100 mg PO BID [facility] Last Admin: 06/06/18 09:37 Dose: 100 mg Oxycodone HCl (Roxicodone -) 5 mg PO Q6H PRN PRN Reason: PAIN LEVEL 6-10 Pantoprazole Sodium (Protonix -) 20 mg PO DAILY [facility] Last Admin: 06/06/18 09:37 Dose: 20 mg Prochlorperazine Edisylate (Compazine Injection -) 2.5 mg IVPB Q4H PRN PRN Reason: NAUSEA AND/OR VOMITING Last Admin: 06/01/18 21:07 Dose: 2.5 mg - Objective Vital Signs: Vital Signs Temperature 98.4 F 06/06/18 09:00 Pulse Rate 92 H 06/06/18 09:00 Respiratory Rate 18 06/06/18 09:00 Blood Pressure 148/87 06/06/18 09:00 O2 Sat by Pulse Oximetry (%) 100 06/06/18 09:00 Constitutional: Yes: No Distress, Calm Cardiovascular: Yes: Regular Rate and Rhythm Respiratory: Yes: Regular, CTA Bilaterally Gastrointestinal: Yes: Normal Bowel Sounds, Soft Musculoskeletal: Yes: Other Extremities: Yes: Other Labs: CBC, BMP 06/05/18 06:20 06/06/18 05:30 INR, PTT INR 1.01 (0.83-1.09) 05/29/18 10:23 Assessment/Plan scrotal edema swelling pain scrotal phlegmon necrotic skin plan patient can be switched to oral augmentin 500 mg po bid for another 10 days monitor scrotum follow up with urology rest as per the team
--- NOTE | 2018-06-06 15:55 | PN ---
Teaching Attending Note Name of Resident: Leigh Hendrix ATTENDING PHYSICIAN STATEMENT I saw and evaluated the patient. I reviewed the resident's note and discussed the case with the resident. I agree with the resident's findings and plan as documented. SUBJECTIVE: Patient is feeling better, wants to go home. OBJECTIVE: Vital Signs Temperature 98.4 F 06/06/18 09:00 Pulse Rate 92 H 06/06/18 09:00 Respiratory Rate 18 06/06/18 09:00 Blood Pressure 148/87 06/06/18 09:00 O2 Sat by Pulse Oximetry (%) 100 06/06/18 09:00 GEN: NAD Ext: L BKA. no edema on RLE. surgical scars on legs and arms : as per ID: patient has a necrotic patch with slough in the wound . CBCD WBC 8.5 K/mm3 (4.0-10.0) 06/05/18 06:20 RBC 3.54 M/mm3 (4.00-5.60) L 06/05/18 06:20 Hgb 9.5 GM/dL (11.7-16.9) L 06/05/18 06:20 Hct 28.8 % (35.4-49) L 06/05/18 06:20 MCV 81.3 fl (80-96) 06/05/18 06:20 MCHC 32.9 g/dl (32.0-35.9) 06/05/18 06:20 RDW 16.5 % (11.9-15.9) H 06/05/18 06:20 Plt Count 460 K/MM3 (134-434) H 06/05/18 06:20 MPV 7.0 fl (7.5-11.1) L 06/05/18 06:20 CMP Sodium 141 mmol/L (136-145) 06/06/18 05:30 Potassium 3.5 mmol/L (3.5-5.1) 06/06/18 05:30 Chloride 111 mmol/L (98-107) H 06/06/18 05:30 Carbon Dioxide 19 mmol/L (21-32) L 06/06/18 05:30 Anion Gap 11 MMOL/L (8-16) 06/06/18 05:30 BUN 4 mg/dL (7-18) L 06/06/18 05:30 Creatinine 1.7 mg/dL (0.55-1.3) H 06/06/18 05:30 Creat Clearance w eGFR 43.42 (>60) 06/06/18 05:30 Random Glucose 145 mg/dL (74-106) H 06/06/18 05:30 Calcium 8.5 mg/dL (8.5-10.1) 06/06/18 05:30 Total Bilirubin 1.0 mg/dL (0.2-1) 05/30/18 06:15 AST 9 U/L (15-37) L 05/30/18 06:15 ALT 7 U/L (13-61) L 05/30/18 06:15 Alkaline Phosphatase 196 U/L (45-117) H 05/30/18 06:15 Total Protein 5.3 g/dl (6.4-8.2) L 05/30/18 06:15 Albumin 1.8 g/dl (3.4-5.0) L 05/30/18 06:15 CARDIAC ENZYMES Troponin I < 0.02 ng/ml (0.00-0.05) 05/29/18 10:23 Current Medications Generic Name Dose Route Start Last Admin Trade Name Freq PRN Reason Stop Dose Admin Amlodipine Besylate 10 mg 06/04/18 10:00 06/06/18 09:37 Norvasc - PO 10 mg DAILY JESUS Administration Docusate Sodium 100 mg 05/30/18 18:44 06/02/18 18:32 Colace - PO 100 mg BID PRN Administration CONSTIPATION Piperacillin Sod/Tazobactam 50 mls @ 100 mls/hr 05/30/18 11:45 06/06/18 09:37 Sod 3.375 gm/ Dextrose IVPB 100 mls/hr Q8H-IV JESUS Administration Protocol Sodium Chloride 1,000 mls @ 100 mls/hr 05/30/18 13:30 06/06/18 13:30 Normal Saline - IV Not Given ASDIR JESUS Insulin Aspart 1 vial 05/29/18 16:30 06/06/18 14:25 Novolog Vial Sliding Scale - SQ Not Given ACHS [facility] Protocol Insulin Detemir 10 units 05/31/18 08:08 06/06/18 06:45 Levemir Vial SQ 10 units AM JESUS Administration Labetalol HCl 100 mg 06/03/18 22:00 06/06/18 09:37 Normodyne - PO 100 mg BID JESUS Administration Oxycodone HCl 5 mg 06/05/18 15:50 Roxicodone - PO Q6H PRN PAIN LEVEL 6-10 Pantoprazole Sodium 20 mg 05/30/18 10:00 06/06/18 09:37 Protonix - PO 20 mg DAILY JESUS Administration Prochlorperazine Edisylate 2.5 mg 06/01/18 07:48 06/01/18 21:07 Compazine Injection - IVPB 2.5 mg Q4H PRN Administration NAUSEA AND/OR VOMITING Home Medications Medication Instructions Recorded Pantoprazole Sodium [Protonix -] 20 mg PO DAILY 05/29/18 Amlodipine Besylate [Norvasc -] 10 mg PO DAILY #30 tablet 06/06/18 Insulin (Levemir) [Levemir Vial] 10 units SQ AM #30 syringe 06/06/18 Labetalol HCl [Normodyne -] 100 mg PO BID #60 tablet 06/06/18 ASSESSMENT AND PLAN: 48 y/o man with h/o DM, HTN, L BKA ,MRSA , L LE soft tissue infection who presented with pain and edema in his scrotum. he was diagnosed with scrotal cellulites. # Scrotal cellulites and abscess with necrotic patch and was suggested urology evaluation for debridment of the slough of the wound, patient is refusing to stay in the hospital and would like to sign against medical advice. s/p surgical drainage 06/03. Patient was expalined the complications of not staying, testicular loss and loss of male organ was explained to the patient . and was suggested if he gets worse to return to the hospital. was given oral antibiotics Augmentin for 10 days. Patient needs iV antibiotics but refused to stay for further care. # KENDRICK : further w/u as an outpatient # Microcytic Anemia: ACD # DM : continue home levemir and home meds. # HTN: cont labetalol and Norvasc
== END 2018-06-06 16:21 | disposition left against medical advice (07) | DRG 720 ==
LOC: JER 09:18 → JERBED 12:19 → J4W 21:39
PROVIDERS: ADMIT Internal Medicine; ATTEND Internal Medicine
PROC: 0V950ZX Drainage of Scrotum, Open Approach, Diagnostic (ICD-10-PCS; principal; 2018-06-02)
DX: A41.01 Sepsis due to Methicillin susceptible Staphylococcus aureus (principal); E87.6 Hypokalemia; E66.9 Obesity, unspecified; Z68.35 Body mass index [BMI] 35.0-35.9, adult; E11.622 Type 2 diabetes mellitus with other skin ulcer; L98.498 Non-pressure chronic ulcer of skin of other sites with other specified severity; E11.65 Type 2 diabetes mellitus with hyperglycemia; D50.9 Iron deficiency anemia, unspecified; D72.829 Elevated white blood cell count, unspecified; R50.9 Fever, unspecified; R00.0 Tachycardia, unspecified; N49.2 Inflammatory disorders of scrotum; K21.9 Gastro-esophageal reflux disease without esophagitis; E83.42 Hypomagnesemia; B96.20 Unspecified Escherichia coli [E. coli] as the cause of diseases classified elsewhere; L02.91 Cutaneous abscess, unspecified; E87.2 Acidosis; N17.9 Acute kidney failure, unspecified; E78.5 Hyperlipidemia, unspecified; I49.2 Junctional premature depolarization; I12.9 Hypertensive chronic kidney disease with stage 1 through stage 4 chronic kidney disease, or unspecified chronic kidney disease; E11.22 Type 2 diabetes mellitus with diabetic chronic kidney disease; N18.9 Chronic kidney disease, unspecified; Z79.4 Long term (current) use of insulin; Z89.512 Acquired absence of left leg below knee; Z91.19 Patient's noncompliance with other medical treatment and regimen; Z87.891 Personal history of nicotine dependence
CPT/HCPCS: 36415; 71045-TC-FY; 76775-TC; 76870-TC; 80048; 80053; 81003; 81015; 82009; 82436; 82570; 82728; 82803; 82962; 83540; 83550; 83605; 83735; 83935; 84100; 84133; 84300; 84466; 84484; 85025; 85027; 85044; 85610; 85730; 86850; 86900; 86901; 87040; 87070; 87086; 87186; 87205; 93005; 93010; 99284-25; J1644; J7030

== ENCOUNTER 2018-07-25 17:54 | Inpatient (IN) | payer OTHER ==
[2018-07-25] MEDS ORDERED: ONDANSETRON 4 MG/2 ML VIAL IVPUSH ONE ×3 (17:59→20:52)
[2018-07-25] MEDS ORDERED: SODIUM CHLORIDE 1,000 ML IV STA (17:59)
--- NOTE | 2018-07-25 18:01 | PDOC ---
Rapid Medical Evaluation Time Seen by Provider: 07/25/18 17:58 Medical Evaluation: Allergies Allergy/AdvReac Type Severity Reaction Status Date / Time No Known Allergies Allergy Verified 05/29/18 09:24 07/25/18 17:58 I have performed a brief in-person evaluation of this patient. The patient presents with a chief complaint of: vomiting blood today Pertinent physical exam findings: coffee ground emesis present. I have ordered the following: labs, urine The patient will proceed to the ED for further evaluation. Discharge Disposition - Diagnosis Nausea & vomiting - Referrals - Patient Instructions - Post Discharge Activity
[2018-07-25] MEDS ORDERED: ONDANSETRON 4 MG/2 ML VIAL ONE ×3 (18:22→20:56)
[2018-07-25] MEDS ORDERED: PANTOPRAZOLE SODIUM 40 MG VIAL ONE ×2 (18:23→19:08)
[2018-07-25] MEDS ORDERED: OCTREOTIDE ACETATE 50 MCG/1 ML - 1 ML VIAL IVPUSH ONE (18:29)
[2018-07-25] MEDS ORDERED: PANTOPRAZOLE SODIUM 40 MG in SODIUM CHLORIDE 100 ML IVPB ONE (18:30)
[2018-07-25] MEDS ORDERED: PANTOPRAZOLE SODIUM 40 MG VIAL IVPUSH ONE ×2 (18:36→18:56)
[2018-07-25 18:52] LABS: BASO % 0.3 % (0-2.0); EOS % 0.1 % (0-4.5); HEMATOCRIT 32.1 % (35.4-49); HEMOGLOBIN 10.5 GM/dL (11.7-16.9); LYMPH % 5.6 % (8-40); MCH 26.8 pg (25.7-33.7); MCHC 32.7 g/dl (32.0-35.9); MEAN CELL VOLUME 82.1 fl (80-96); MEAN PLT VOLUME 7.3 fl (7.5-11.1); MONO % 1.7 % (3.8-10.2); NEUT % 92.3 % (42.8-82.8); PLATELET COUNT 559 K/MM3 (134-434); RDW 17.5 % (11.9-15.9)
--- NOTE | 2018-07-25 18:53 | PDOC ---
Attending Attestation - Resident Resident Name: SantosSpencer sandy - ED Attending Attestation I have performed the following: I have examined & evaluated the patient, The case was reviewed & discussed with the resident, I agree w/resident's findings & plan, Exceptions are as noted - Medical Decision Making 07/25/18 18:53 I, Dr. Joanna Reynoso, DO, attest that this document has been prepared under my direction and personally reviewed by me in its entirety. I further attest, that it accurately reflects all work, treatment, procedures and medical decision -making performed by me. 07/25/18 19:39 48yo male with epigastric pain an coffee ground emesis -hx of gastric ulcers -pt with coffee ground emesis active in the ED -will send labs, cxr, ekg -hx of BKA L and prosthesis in place -will discuss with GI -will give zofran, ivf, protonix gtt -no hx of cirrhosis or esophageal varices 07/25/18 19:42 resident discussed the case with GI who will see the patient in consult 07/25/18 19:43 resident discussed the case with Dr. Fuentes who accepts the patient to service 07/25/18 19:43 call placed to ICU team for management of UGIB 07/25/18 19:44 cr at baseline elevated lipase hgb 10 - will repeat hgb in 4 hours 07/25/18 20:[address] 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 BKA presents to the emergency department with epigastric pain with coffee ground emesis. The patient presents with epigastric, chest pain thats been constant all day today , associated with coffee ground emesis. The patient has a history of gastric ulcers. The patient is actively vomiting at the ED. The patient reports he had a single episode of greenish bowel movement, denies diarrhea, melena, hematochezia. Denies fever chills shortness of breath, dysuria, hematuria. Allergies: NKA PCP: None reported - Physicial Exam PE: 07/25/18 20:25 GENERAL: Awake, alert, and fully oriented, +actively vomiting. HEAD: No signs of trauma EYES: PERRLA, EOMI, sclera anicteric, conjunctiva clear ENT: Auricles normal inspection, hearing grossly normal, nares patent, oropharynx clear without exudates. Moist mucosa NECK: Normal ROM, supple, no lymphadenopathy, JVD, or masses LUNGS: Breath sounds equal, clear to auscultation bilaterally. No wheezes, and no crackles HEART: Regular rate and rhythm, normal S1 and S2, no murmurs, rubs or gallops ABDOMEN: + Epigastric tenderness. Soft, actively vomiting. EXTREMITIES: + Skin graft to the R. upper extremity well healed, L. BKA with prosthesis in place. No edema to the R. leg. NEUROLOGICAL: Cranial nerves II through XII grossly intact. Normal speech. SKIN: Warm, Dry, normal turgor, no rashes or lesions noted. - Medical Decision Making 07/25/18 20:25 Documentation prepared by Tessy Beck, acting as medical billing instructor for Joanna Reynoso DO. 07/25/18 20:55 Dr. Jerez called at 7:46, 8:08. Case discussed with Dr. Jerez. <Tessy Beck - Last Filed: 07/25/18 20:56> Heart Score/ECG Review - ECG Intrepretation Comment:: 07/25/18 19:43 sinus tach at 104, nl axis, nl interval, pvc, no other acute findings <Joanna Reynoso - Last Filed: 07/25/18 20:21>
[2018-07-25] MEDS ORDERED: FAMOTIDINE 20 MG/50 ML IVPB 20 MG/50 ML MG IVPB ONE ×2 (19:10→19:24)
[2018-07-25 19:20] LABS: ANISOCYTOSIS 1+; MACROCYTOSIS 1+; PLATELET ESTIMATE INCREASED
[2018-07-25 19:21] LABS: ALBUMIN 3.5 g/dl (3.4-5.0); ALK PHOS 294 U/L (45-117); ANION GAP 8 MMOL/L (8-16); BILIRUBIN,TOTAL 0.6 mg/dL (0.2-1); BLOOD UREA NITROGEN 13 mg/dL (7-18); CALCIUM 9.2 mg/dL (8.5-10.1); CHLORIDE 108 mmol/L (98-107); CO2 25 mmol/L (21-32); CREATININE 1.6 mg/dL (0.55-1.3); GLUCOSE,RANDOM 210 mg/dL (74-106); INR 1.03 (0.83-1.09); LIPASE 625 U/L (73-393); POTASSIUM 3.6 mmol/L (3.5-5.1); PROTHROMBIN TIME (PATIENT) 12.2 SEC (9.7-13.0); SGOT/AST 28 U/L (15-37); SGPT/ALT 20 U/L (13-61); SODIUM 142 mmol/L (136-145); TOT PROT 8.2 g/dl (6.4-8.2)
--- NOTE | 2018-07-25 19:21 | PDOC ---
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 The patient states that he had vomiting since yesterday but he does not recall the amount of vomit that he had. He states that this morning, his vomit had a dark color to it but never had bright red blood. He cannot provide any other history. Past History - Past Medical History Allergies/Adverse Reactions: Allergies Allergy/AdvReac Type Severity Reaction Status Date / Time No Known Allergies Allergy Verified 07/25/18 18:06 Home Medications: Ambulatory Orders Pantoprazole Sodium [Protonix -] 20 mg PO DAILY 05/29/18 Amlodipine Besylate [Norvasc -] 10 mg PO DAILY #30 tablet 06/06/18 Amoxicillin/Potassium Clav [Augmentin 500-125 Tablet] 1 each PO BID #20 tablet 06/06/18 Insulin (Levemir) [Levemir Vial] 10 units SQ AM #30 syringe 06/06/18 Labetalol HCl [Normodyne -] 100 mg PO BID #60 tablet 06/06/18 Anemia: No Asthma: No Cancer: No Cardiac Disorders: Yes (DVT) CVA: No COPD: No CHF: No Dementia: No Diabetes: Yes (pt denies taking any meds) GI Disorders: (REFLUX) Disorders: No HTN: Yes Hypercholesterolemia: No Liver Disease: No Seizures: No Thyroid Disease: No - Surgical History Abdominal Surgery: No Appendectomy: No Cardiac Surgery: No Cholecystectomy: No Lung Surgery: No Neurologic Surgery: No Orthopedic Surgery: Yes (lt leg amputation ( lt BKA) 4 years ago) - Family Disease History Family Disease History: Diabetes: Father - Immunization History Immunization Up to Date: Yes - Suicide/Smoking/Psychosocial Hx Smoking Status: No Smoking History: Former smoker Have you smoked in the past 12 months: No Number of Cigarettes Smoked Daily: 0 If you are a former smoker, when did you quit?: 10 years ago Cigars Per Day: 0 Information on smoking cessation initiated: No Hx Alcohol Use: No Drug/Substance Use Hx: No Substance Use Type: None Hx Substance Use Treatment: No Review of Systems - Review of Systems Able to Perform ROS?: Yes Comments:: 07/25/18 21:31 GENERAL/CONSTITUTIONAL: No fever or chills. No weakness. HEAD, EYES, EARS, NOSE AND THROAT: No change in vision. No ear pain or discharge. No sore throat. CARDIOVASCULAR: No chest pain, palpitations, or lightheadedness. RESPIRATORY: No cough, wheezing, shortness of breath, or hemoptysis. GASTROINTESTINAL: Positive for nausea, vomiting, and coffee ground emesis. GENITOURINARY: No dysuria, frequency, hematuria, or change in urination. MUSCULOSKELETAL: No joint or muscle swelling or pain. No neck or back pain. SKIN: No rash or lesions. NEUROLOGIC: No headache, numbness, tingling, focal weakness, loss of consciousness, or change in strength/sensation. Is the patient limited Taiwanese proficient: No *Physical Exam - Vital Signs Last Vital Signs Temp Pulse Resp BP Pulse Ox 100 H 20 172/100 H 98 07/25/18 17:57 07/25/18 17:57 07/25/18 17:57 07/25/18 17:57 - Physical Exam Comments: 07/25/18 21:37 GENERAL: Well developed, well nourished. Awake and alert. In moderate distress. HEENT: Normocephalic, atraumatic. Hearing grossly normal. Moist mucous membranes. PERRLA, EOMI. No conjunctival pallor. Sclera are non-icteric. NECK: Supple. Full ROM. CARDIOVASCULAR: Regular rate and rhythm. No murmurs, rubs, or gallops. PULMONARY: No evidence of respiratory distress. Lungs clear to auscultation bilaterally. No wheezing, rales or rhonchi. ABDOMINAL: Actively vomiting with coffee ground emesis. Soft. Non-tender. Non- distended. MUSCULOSKELETAL: Normal range of motion at all joints. No bony deformities or tenderness. EXTREMITIES: No cyanosis. No clubbing. No edema. No calf tenderness or swelling. SKIN: Warm and dry. Normal capillary refill. No rashes. No jaundice. NEUROLOGICAL: Alert, awake, appropriate. Cranial nerves 2-12 grossly intact. Normal speech. Gait is normal without ataxia. PSYCHIATRIC: Cooperative. Good eye contact. Appropriate mood and affect. ED Treatment Course - LABORATORY CBC & Chemistry Diagram: 07/25/18 18:40 07/25/18 18:40 - ADDITIONAL ORDERS Additional order review: 07/25/18 18:40 RBC 3.90 L MCV 82.1 MCHC 32.7 RDW 17.5 H MPV 7.3 L Neutrophils % 92.3 H D Lymphocytes % 5.6 L D Monocytes % 1.7 L Eosinophils % 0.1 D Basophils % 0.3 - RADIOLOGY Radiology Studies Ordered: Category Date Time Status CHEST X-RAY PORTABLE* [RAD] Stat Radiology 07/25/18 18:38 Taken - Medications Given in the ED: ED Medications Discontinued Medications Generic Name Dose Route Start Last Admin Trade Name Freq PRN Reason Stop Dose Admin Sodium Chloride 1,000 mls @ 1,000 mls/hr 07/25/18 17:59 07/25/18 18:31 Normal Saline - IV 07/25/18 18:58 1,000 mls/hr ASDIR STA Administration Pantoprazole Sodium 40 mg/ 100 mls @ 200 mls/hr 07/25/18 18:30 07/25/18 18:40 Sodium Chloride IVPB 07/25/18 18:59 Not Given ONCE ONE Octreotide Acetate 50 mcg 07/25/18 18:29 07/25/18 18:40 Sandostatin - IVPUSH 07/25/18 18:30 Not Given ONCE ONE Ondansetron HCl 4 mg 07/25/18 17:59 07/25/18 18:30 Zofran Injection IVPUSH 07/25/18 18:00 4 mg ONCE ONE Administration Pantoprazole Sodium 40 mg 07/25/18 18:36 07/25/18 18:40 Protonix Iv IVPUSH 07/25/18 18:37 40 mg ONCE ONE Administration Medical Decision Making - Medical Decision Making 07/25/18 21:42 The patient is a 48M with a PMH of gastric ulcers who presents to the ER with coffee ground emesis. IV's established, bloods sent, pt placed on monitor. Given zofran, protonix, and fluids. Pt noted to have hgb of 10.5, higher than hgb in May. Will repeat in 4 hours. Case d/w Dr. Ridley [phone] who agrees to stabilize and if his hgb drops then he wants to be called emergently. , Doretha, Pt given zofran x 2 and is laying down comfortably. CXR unremarkable. Concern for Carmen-Le tear vs bleeding ulcer. Case d/w ICU resident and attending and he will be going to the unit. 07/25/18 21:53 Attending will continue care of pt, Dr. Reynoso. *DC/Admit/Observation/Transfer Diagnosis at time of Disposition: Nausea & vomiting - Referrals - Patient Instructions - Post Discharge Activity
[2018-07-25] MEDS ORDERED: morphine CARPU-JECT 4 MG/1 ML DISP.SYRIN IVPUSH ONE (19:22)
[2018-07-25] MEDS ORDERED: morphine SULFATE 4 MG/ML VIAL ONE ×2 (19:23→21:07)
[2018-07-25] MEDS: PANTOPRAZOLE SODIUM 80 MG in SODIUM CHLORIDE 100 ML IVPB SCH (19:37)
--- NOTE | 2018-07-25 20:44 | HP ---
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 The patient states that he had vomiting since yesterday but he does not recall the amount of vomit that he had. He states that this morning, his vomit had a dark color to it but never had bright red blood. He cannot provide any other history. history taken from er records - Past Medical History Cardiovascular: Yes: HTN, Hyperlipdemia Gastrointestinal: Yes: GERD Heme/Onc: Yes: Anemia Infectious Disease: Yes: MRSA (several years ago) Musculoskeletal: Yes: Other (left thigh pain) Endocrine: Yes: Diabetes Mellitus Dermatology: Yes: Cellulitis (mrsa) - Past Surgical History Past Surgical History: Yes: Amputation (left BKA) - Smoking History Smoking history: Former smoker Have you smoked in the past 12 months: No Aproximately how many cigarettes per day: 0 If you are a former smoker, when did you quit?: 10 years ago - Alcohol/Substance Use Hx Alcohol Use: No - Social History ADL: Independent History of Recent Travel: No Home Medications - Allergies Allergies/Adverse Reactions: Allergies Allergy/AdvReac Type Severity Reaction Status Date / Time No Known Allergies Allergy Verified 07/25/18 18:06 - Home Medications Home Medications: Ambulatory Orders Pantoprazole Sodium [Protonix -] 20 mg PO DAILY 05/29/18 Amlodipine Besylate [Norvasc -] 10 mg PO DAILY #30 tablet 06/06/18 Amoxicillin/Potassium Clav [Augmentin 500-125 Tablet] 1 each PO BID #20 tablet 06/06/18 Insulin (Levemir) [Levemir Vial] 10 units SQ AM #30 syringe 06/06/18 Labetalol HCl [Normodyne -] 100 mg PO BID #60 tablet 06/06/18 Family Disease History - Family Disease History Family Disease History: Diabetes: Father Physical Examination Vital Signs: Vital Signs Temperature Pulse Rate 100 H 07/25/18 17:57 Respiratory Rate 20 07/25/18 17:57 Blood Pressure 172/100 H 07/25/18 17:57 O2 Sat by Pulse Oximetry (%) 98 11/14/18 17:57 HENT: Yes: Atraumatic Neck: Yes: Supple Cardiovascular: Yes: Regular Rate and Rhythm Respiratory: Yes: CTA Bilaterally Gastrointestinal: Yes: Normal Bowel Sounds Extremities: Yes: WNL Edema: Yes Neurological: Yes: Alert, Oriented Labs: CBC, BMP 07/25/18 18:40 07/25/18 18:40 Problem List - Problems (1) Nausea & vomiting Assessment/Plan: prn antiemetic Code(s): R11.2 - NAUSEA WITH VOMITING, UNSPECIFIED (2) Hyperglycemia due to type 2 diabetes mellitus Code(s): E11.65 - TYPE 2 DIABETES MELLITUS WITH HYPERGLYCEMIA (3) KENDRICK (acute kidney injury) Assessment/Plan: iv hydration Code(s): N17.9 - ACUTE KIDNEY FAILURE, UNSPECIFIED Assessment/Plan Laboratory Tests 07/25/18 07/25/18 07/25/18 18:40 18:40 18:40 WBC 13.0 H RBC 3.90 L Hgb 10.5 L Hct 32.1 L MCV 82.1 MCH 26.8 MCHC 32.7 RDW 17.5 H Plt Count 559 H D MPV 7.3 L Absolute Neuts (auto) 12.0 H Neutrophils % 92.3 H D Neutrophils % (Manual) 92.0 H D Lymphocytes % 5.6 L D Lymphocytes % (Manual) 6.0 L D Monocytes % 1.7 L Monocytes % (Manual) 2 L Eosinophils % 0.1 D Basophils % 0.3 Nucleated RBC % 0 Hypochromia 1+ Platelet Estimate Increased Platelet Comment No clumping noted Anisocytosis 1+ Microcytosis 1+ Macrocytosis 1+ PT with INR 12.20 INR 1.03 Sodium 142 Potassium 3.6 Chloride 108 H Carbon Dioxide 25 Anion Gap 8 BUN 13 Creatinine 1.6 H Creat Clearance w eGFR 46.56 Random Glucose 210 H Calcium 9.2 Total Bilirubin 0.6 AST 28 ALT 20 Alkaline Phosphatase 294 H Total Protein 8.2 Albumin 3.5 Lipase 625 H Blood Type Antibody Screen 07/25/18 18:40 WBC RBC Hgb Hct MCV MCH MCHC RDW Plt Count MPV Absolute Neuts (auto) Neutrophils % Neutrophils % (Manual) Lymphocytes % Lymphocytes % (Manual) Monocytes % Monocytes % (Manual) Eosinophils % Basophils % Nucleated RBC % Hypochromia Platelet Estimate Platelet Comment Anisocytosis Microcytosis Macrocytosis PT with INR INR Sodium Potassium Chloride Carbon Dioxide Anion Gap BUN Creatinine Creat Clearance w eGFR Random Glucose Calcium Total Bilirubin AST ALT Alkaline Phosphatase Total Protein Albumin Lipase Blood Type A POSITIVE Antibody Screen Negative Active Medications Generic Name Dose Route Start Last Admin Trade Name Julee PRN Reason Stop Dose Admin Pantoprazole Sodium 80 mg/ 100 mls @ 10 mls/hr 07/25/18 19:00 07/25/18 19:37 Sodium Chloride IVPB 10 mls/hr Q10H JESUS Administration 8 MG/HR Active Medications Generic Name Dose Route Start Last Admin Trade Name Julee PRN Reason Stop Dose Admin Pantoprazole Sodium 80 mg/ 100 mls @ 10 mls/hr 07/25/18 19:00 07/26/18 09:42 Sodium Chloride IVPB Not Given Q10H JESUS 8 MG/HR Lactated Ringer's 1,000 ml in 1,000 mls @ 100 mls/hr 07/26/18 10:00 07/26/18 10:27 Lactated Ringers Solution IV 100 mls/hr ASDIR JESUS Administration Insulin Aspart 1 vial 07/26/18 07:00 07/26/18 12:10 Novolog Vial Sliding Scale - SQ 2 units ACHS JESUS Administration Protocol cc time 60 min
[2018-07-25] MEDS ORDERED: SODIUM CHLORIDE 1,000 ML IV SCH (21:00)
[2018-07-25] MEDS ORDERED: METOCLOPRAMIDE HCL INJECTION 10 MG/2 ML VIAL IVPUSH ONE (22:34)
[2018-07-25] MEDS ORDERED: METOCLOPRAMIDE HCL INJECTION 10 MG/2 ML VIAL ONE (22:35)
[2018-07-25 23:12] LABS: BASO % 0.4 % (0-2.0); HEMATOCRIT 31.1 % (35.4-49); HEMOGLOBIN 10.1 GM/dL (11.7-16.9); LYMPH % 5.8 % (8-40); MCH 26.8 pg (25.7-33.7); MCHC 32.5 g/dl (32.0-35.9); MEAN CELL VOLUME 82.7 fl (80-96); MONO % 2.3 % (3.8-10.2); NEUT % 91.5 % (42.8-82.8); PLATELET COUNT 463 K/MM3 (134-434); RBC 3.76 M/mm3 (4.00-5.60); RDW 17.1 % (11.9-15.9); WHITE BLOOD COUNT 13.2 K/mm3 (4.0-10.0)
--- NOTE | 2018-07-25 23:26 | CONSULT ---
Consultation: REQUESTING PROVIDER: Dr. Fuentes CONSULT REQUEST: We have been asked to medically evaluate this patient for Coffee Ground Emesis. HISTORY OF PRESENT ILLNESS: Patient is a 48 year old male with a PMHx of uncontrolled IDDMII (Noncompliant with medications), GERD, HTN, Left BKA, multiple soft tissue infections, Right elbow and left buttock necrotizing fasciitis s/p surgical debridement who presented with epigastric pain associated with multiple episodes of coffee ground emesis for the last two days. Patient states he has an episode of coffee ground emesis once every four months for the last 4-5 years but this morning he reports the vomiting was continuous associated with epigastric pain described as a nonradiating, constant burning sensation, which prompted this hospital visit. Patient had EGD done (2014) and was found to have four linear ulcers, gastritis, esophagitis, hiatal hernia and possible zuleta's. When evaluating the patient, he was hysterically crying and vomiting continuous coffee ground emesis. When further questioning, patient admits to taking Ibuprofen 800mg daily for the last three months due to right knee pain that he is suppose to have a replacement for. Patient states he is compliant with his PPI medications up until Monday of this week. Otherwise, patient denies any diarrhea, melena, hematochezia, hematuria, dysuria , fever, chills, shortness of breath, loss of consciousness, dizziness, pack pain, neck pain. Patient denies any weight change, loss of appetite, change in diet, change in bowel movements, change in stool caliber or color. Patient denies any jaundice, history of hepatitis, autoimmune disorder, recent travel, recent abx use or anticoagulations. PMHx: GERD HTN IDDMII Right elbow necrotizing fasciitis s/p surgical debridement Necrotizing soft tissue infection of left buttocks s/p multiple debridements Left BKA PSHx: Debirement of right elbow and left buttock Left BKA Social Hx: Lives with and currently unemployed. 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 Quit three years ago Former Smoker. Quit three years ago Denies drug use Family Hx: Father- Diabetes Allergies: NKDA REVIEW OF SYSTEMS: CONSTITUTIONAL: Absent: fever, chills, diaphoresis, generalized weakness, malaise, loss of appetite, weight change HEENT: Absent: rhinorrhea, nasal congestion, throat pain, throat swelling, difficulty swallowing, mouth swelling, ear pain, eye pain, visual changes CARDIOVASCULAR: chest pain Absent: syncope, palpitations, irregular heart rate, lightheadedness, peripheral edema RESPIRATORY: Absent: cough, shortness of breath, dyspnea with exertion, orthopnea, wheezing, stridor, hemoptysis GASTROINTESTINAL: abdominal pain, vomiting, coffee ground emesis Absent: abdominal distension, nausea, diarrhea, constipation, melena, hematochezia GENITOURINARY: Absent: dysuria, frequency, urgency, hesitancy, hematuria, flank pain, genital pain MUSCULOSKELETAL: Absent: myalgia, arthralgia, joint swelling, back pain, neck pain SKIN: Absent: rash, itching, pallor HEMATOLOGIC/IMMUNOLOGIC: Absent: easy bleeding, easy bruising, lymphadenopathy, frequent infections ENDOCRINE: Absent: unexplained weight gain, unexplained weight loss, heat intolerance, cold intolerance NEUROLOGIC: Absent: headache, focal weakness or paresthesias, dizziness, unsteady gait, seizure, mental status changes, bladder or bowel incontinence PSYCHIATRIC: Absent: anxiety, depression, suicidal or homicidal ideation, hallucinations. PHYSICAL EXAMINATION Vital Signs - 24 hr Vital Signs Period Temp Pulse Resp BP Sys/Monet Pulse Ox Last 24 Hr 98.2 F-98.6 F 95-111 14-20 155-198/86-104 98-100 GENERAL: Awake, alert, fully oriented, crying, actively vomiting. HEAD: Normal with no signs of trauma. EYES: Pupils equal, round and reactive to light, extraocular movements intact, sclera anicteric, conjunctiva clear. No lid lag. ENT: Oropharynx clear without exudates. Moist mucous membranes. NECK: (-) Lymphadenopathy, JVD, or masses. LUNGS: Breath sounds equal, clear to auscultation bilaterally. No wheezes, and no crackles. No accessory muscle use. HEART: Tachycardic with regular rhythm, normal S1 and S2 without murmur, rub or gallop. ABDOMEN: Soft, Diffuse tenderness upon palpation, notably in the epigastric and sternal area. Normoactive bowel sounds, no guarding, no rebound, no masses. No hepatomegaly or splenomegaly. MUSCULOSKELETAL: No CVA tenderness. UPPER EXTREMITIES: No peripheral edema. LOWER EXTREMITIES: Left BKA with prosthesis in place. Right knee brace in place. No peripheral edema. NEUROLOGICAL: Cranial nerves II-XII intact. Normal Speech PSYCHIATRIC: Cooperative. Good eye contact. Appropriate mood and affect. Laboratory Results - last 24 hr CBC, BMP 07/25/18 23:00 07/25/18 18:40 07/25/18 07/25/18 18:40 18:40 PT with INR 12.20 INR 1.03 AST 28 ALT 20 Alkaline Phosphatase 294 H Lipase 625 H Active Medications Generic Name Dose Route Start Last Admin Trade Name Freq PRN Reason Stop Dose Admin Pantoprazole Sodium 80 mg/ 100 mls @ 10 mls/hr 07/25/18 19:00 07/25/18 19:37 Sodium Chloride IVPB 10 mls/hr Q10H JESUS Administration 8 MG/HR Sodium Chloride 1,000 mls @ 100 mls/hr 07/25/18 21:00 07/25/18 21:24 Normal Saline - IV 100 mls/hr ASDIR JESUS Administration ASSESSMENT/PLAN: Patient is a 48 year old male who presented for epigastric pain and continuous coffee ground emesis, concerning for UGI. Patient admitted to ICU for further monitoring and management. GASTROENTEROLOGY #Coffee Ground Emesis -Concerning for UGIB from bleeding ulcerations vs possible mikayla dove due to retching. Patient admits to taking IBUPROFEN 800MG DAILY FOR THE LAST THREE MONTHS, which may be the source of bleeding. -Placement of 2 large bore IV lines -Protonix Drip -Continue Resuscitation with IV NS @100cc/hr -NPO -Continue to assess vitals for any over bleeding, hypotension, tachycardia and decompensation -Monitor CBC and transfuse PRBC if Hgb <7 -Maintain platelets >50,000 -EGD in the morning #Elevated ALP -Medical records reveal chronic history of elevated ALP -Will need obtain records from GI doctor -Besides liver, may also be elevated from bone, intestines, or kidneys. Increase levels also seen in biliary obstruction or intrahepatic cholestasis. However, Bilirubin not elevated. -Consider abdominal U/S, GGT, and hepatitis panel. -GI follow up as outpatient. NEPHROLOGY #KENDRICK on CKD -Likely hypovolemia due to vomiting and poor oral intake -Continue IV Fluids with NS @100cc/hr -Monitor BMP and if worsening function, send urine electrolytes for FENa HEM/ONC #Anemia of Chronic Disease -Likely secondary to CKD. Patient noncompliant with his anti-htn and diabetes medications. Will need to follow up with nephrology as outpatient for further investigation -Last iron studies 05/30/18 which showed Transferrrin 145, FE 7, TIBC 183, Iron Sat 4, Ferritin 124.2 CARDIOLOGY #HTN -Currently uncontrolled -Limited on medications to give due to procedure for the morning and due to CKD -Will give hydralazine -Close BP monitoring ENDOCRINOLOGY #IDDMII -Patient noncompliant with medications -BGM, ISS -A1C and lipid panel to be ordered F/E/N -IV NS @100mls/hr -Electrolytes wnl -NPO Prophylaxis -Avoid AC due to GI bleed -Protonix drip for GI Disposition -Full code -ICU monitoring. EGD in the morning Dispo: We will continue to follow the patient. Thank you for this consultative opportunity. Visit type - Emergency Visit Emergency Visit: Yes ED Registration Date: 07/25/18 Care time: The patient presented to the Emergency Department on the above date and was hospitalized for further evaluation of their emergent condition. - New Patient This patient is new to me today: Yes Date on this admission: 07/25/18 - Critical Care Critical Care patient: Yes Total Critical Care Time (in minutes): 45 Critical Care Statement: The care of this patient involved high complexity decision making to prevent further life threatening deterioration of the patient 's condition and/or to evaluate & treat vital organ system(s) failure or risk of failure.
[2018-07-26 01:36] LABS: ANISOCYTOSIS 1+; PLATELET ESTIMATE SLT INCREASE
[2018-07-26] MEDS ORDERED: PNEUMOC 13-VAL CONJ-DIP CRM/PF 0.5 ML DISP.SYRIN IM ONE (03:04)
[2018-07-26] MEDS ORDERED: METOCLOPRAMIDE HCL INJECTION 10 MG/2 ML VIAL IVPUSH ONE (05:08)
[2018-07-26] MEDS ORDERED: ACETAMINOPHEN 1000 MG/100 ML VIAL (NON FORMULARY) IVPB ONE (05:15)
[2018-07-26] MEDS ORDERED: hydrALAZINE HCL 20 MG/ML VIAL IVPUSH ONE ×2 (06:02→22:49)
[2018-07-26] MEDS: PANTOPRAZOLE SODIUM 80 MG in SODIUM CHLORIDE 100 ML IVPB SCH ×3 (06:16→17:05)
[2018-07-26] MEDS: INSULIN SLIDING SCALE (NOVOLOG) 1 VIAL SQ SCH ×4 (06:16→22:33)
[2018-07-26 06:17] LABS: BASO % 0.5 % (0-2.0); HEMOGLOBIN 8.9 GM/dL (11.7-16.9); LYMPH % 8.9 % (8-40); MCH 26.4 pg (25.7-33.7); MCHC 31.9 g/dl (32.0-35.9); MEAN CELL VOLUME 82.6 fl (80-96); MEAN PLT VOLUME 7.1 fl (7.5-11.1); MONO % 5.4 % (3.8-10.2); NEUT % 85.2 % (42.8-82.8); PLATELET COUNT 401 K/MM3 (134-434); RBC 3.39 M/mm3 (4.00-5.60); RDW 17.3 % (11.9-15.9); WHITE BLOOD COUNT 12.4 K/mm3 (4.0-10.0)
[2018-07-26 06:27] LABS: INR 1.07 (0.83-1.09); PROTHROMBIN TIME (PATIENT) 12.6 SEC (9.7-13.0)
[2018-07-26 06:30] LABS: ACTIVATED PTT 27.4 SECONDS (25.2-36.5)
[2018-07-26 08:26] LABS: ALBUMIN 2.8 g/dl (3.4-5.0); ALK PHOS 219 U/L (45-117); ANION GAP 6 MMOL/L (8-16); BILIRUBIN,TOTAL 0.4 mg/dL (0.2-1); BLOOD UREA NITROGEN 14 mg/dL (7-18); CALCIUM 8.2 mg/dL (8.5-10.1); CHLORIDE 115 mmol/L (98-107); CHOLESTEROL 141 mg/dL (50-200); CO2 25 mmol/L (21-32); CREATININE 1.5 mg/dL (0.55-1.3); GLUCOSE,RANDOM 174 mg/dL (74-106); HDL CHOLESTEROL 50 mg/dL (40-60); POTASSIUM 3.6 mmol/L (3.5-5.1); SGOT/AST 16 U/L (15-37); SGPT/ALT 14 U/L (13-61); SODIUM 145 mmol/L (136-145); TOT PROT 6.5 g/dl (6.4-8.2); TRIGLYCERIDES 131 mg/dL (0-150)
[2018-07-26] MEDS ORDERED: morphine CARPU-JECT 4 MG/1 ML DISP.SYRIN IVPUSH ONE (09:06)
[2018-07-26] MEDS ORDERED: morphine SULFATE 4 MG/ML VIAL IVPUSH ONE (09:06)
[2018-07-26] MEDS ORDERED: morphine SULFATE 4 MG/ML VIAL ONE ×3 (09:11→19:23)
[2018-07-26] MEDS ORDERED: LIDOCAINE VISCOUS 2% ORAL/TOP 20 ML UNIT-DOSE CUP MM ONE (10:00)
[2018-07-26] MEDS ORDERED: FLU VACCINE QUAD 60 MCG/0.5 ML (MDV 18-19) IM ONE (10:00)
[2018-07-26] MEDS ORDERED: PROMETHAZINE HCL 25 MG/1 ML VIAL IVPB ONE (10:00)
[2018-07-26] MEDS ORDERED: PNEUMOCOCCAL 23 VACCINE 0.5 ML VIAL IM ONE (10:00)
[2018-07-26] MEDS: LACTATED RINGERS SOLUTION 1,000 ML/1,000 ML INFUS.BAG IV SCH (10:27)
[2018-07-26 11:25] LABS: LIPASE 424 U/L (73-393); MAGNESIUM 2.4 mg/dL (1.8-2.4)
--- NOTE | 2018-07-26 11:52 | EKG ---
Test Reason : Blood Pressure : / mmHG Vent. Rate : 104 BPM Atrial Rate : 104 BPM P-R Int : 148 ms QRS Dur : 082 ms QT Int : 374 ms P-R-T Axes : 030 001 012 degrees QTc Int : 491 ms SINUS TACHYCARDIA WITH OCCASIONAL PREMATURE VENTRICULAR COMPLEXES OTHERWISE NORMAL ECG WHEN COMPARED WITH ECG OF 29-MAY-2018 10:04, SINUS RHYTHM HAS REPLACED JUNCTIONAL RHYTHM Confirmed by BIMAL SOARES MD ([id number]) on 07/26/2018 11:51:50 AM Referred By: Confirmed By:BIMAL SOARES MD
--- NOTE | 2018-07-26 11:54 | EKG ---
Test Reason : Blood Pressure : / mmHG Vent. Rate : 108 BPM Atrial Rate : 108 BPM P-R Int : 140 ms QRS Dur : 084 ms QT Int : 376 ms P-R-T Axes : 031 028 025 degrees QTc Int : 503 ms SINUS TACHYCARDIA OTHERWISE NORMAL ECG WHEN COMPARED WITH ECG OF 25-JUL-2018 19:34, PREMATURE VENTRICULAR COMPLEXES ARE NO LONGER PRESENT Confirmed by BIMAL SOARES MD ([id number]) on 07/26/2018 11:53:39 AM Referred By: Confirmed By:BIMAL SOARES MD
--- NOTE | 2018-07-26 12:15 | PN ---
Teaching Attending Note Name of Resident: Josesito Galeano ATTENDING PHYSICIAN STATEMENT I saw and evaluated the patient. I reviewed the resident's note and discussed the case with the resident. I agree with the resident's findings and plan as documented. SUBJECTIVE: Pt seen and examined in the ICU. Still with epigastric pain and nausea. No fevers recorded. Has been hypertensive. OBJECTIVE: Vital Signs Period Temp Pulse Resp BP Sys/Monet Pulse Ox Last 24 Hr 98.2 F-98.6 F 95-111 13-21 150-198/86-104 97-100 Intake & Output 07/23/18 07/24/18 07/25/18 07/26/18 23:59 23:59 23:59 23:59 Intake Total 540 Output Total 100 Balance 440 Weight 90.718 kg 98.3 kg Gen: NAD at rest Heart: RRR Lung: decreased breath sounds at the bases Abd: soft, mild TTP epigastric region Ext: L BKA, no edema CBC, BMP 07/26/18 05:30 07/26/18 05:30 Active Medications Pantoprazole Sodium 80 mg/ (Sodium Chloride) 100 mls @ 10 mls/hr IVPB Q10H [facility] Last Admin: 07/26/18 09:42 Dose: Not Given Lactated Ringer's (Lactated Ringers Solution) 1,000 ml in 1,000 mls @ 100 mls/ hr IV ASDIR [facility] Last Admin: 07/26/18 10:27 Dose: 100 mls/hr Insulin Aspart (Novolog Vial Sliding Scale -) 1 vial SQ ACHS [facility]; Protocol Last Admin: 07/26/18 12:10 Dose: 2 units ASSESSMENT AND PLAN: r/o GI Bleed r/o Pancreatitis Anemia Acute on Chronic Renal Failure HTN DM s/p L BKA - monitor H/H - transfuse as needed - continue protonix - GI eval - abd ultrasound to rule out stones - NPO for now - IVF - monitor urine output, creatinine - DVT prophylaxis
[2018-07-26] MEDS ORDERED: PROCHLORPERAZINE MALEATE 25 MG SUPP.RECT PR ONE (14:00)
--- NOTE | 2018-07-26 14:04 | PN ---
Physical Exam: SUBJECTIVE: Patient seen and examined in the ICU. c/o severe epigastric pain and nausea but afebrile. Noted to be retching/dry heaving Has been hypertensive. OBJECTIVE: Vital Signs Period Temp Pulse Resp BP Sys/Monet Pulse Ox Last 24 Hr 98.2 F-98.6 F 95-111 13-21 150-198/86-104 97-100 GENERAL:AOX3, crying, actively vomiting in mild distress HEAD: NCAT EYES: sclera anicteric, conjunctiva clear. No lid lag. ENT: MMM NECK: supple, (-) Lymphadenopathy, JVD, or masses. LUNGS: CTAB HEART: Tachycardic with RR, normal S1 and S2 without m/r/g ABDOMEN: Soft, Diffuse tenderness upon palpation, notably in the epigastric and sternal area. hypoactive bowel sounds, no guarding, no rebound, no masses. MUSCULOSKELETAL: No CVA tenderness. UPPER EXTREMITIES: No peripheral edema. LOWER EXTREMITIES: Left BKA with prosthesis in place. Right knee brace in place. No peripheral edema. NEUROLOGICAL: Cranial nerves II-XII intact. Normal Speech PSYCHIATRIC: Cooperative. Good eye contact. Appropriate mood and affect. RECTAL: no external hemrrhoids, no bleeding from anus, no masses felt, w/ some soft brown stool Laboratory Results - last 24 hr 07/25/18 07/25/18 07/25/18 18:40 18:40 18:40 WBC 13.0 H RBC 3.90 L Hgb 10.5 L Hct 32.1 L MCV 82.1 MCH 26.8 MCHC 32.7 RDW 17.5 H Plt Count 559 H D MPV 7.3 L Absolute Neuts (auto) 12.0 H Total Counted Neutrophils % 92.3 H D Neutrophils % (Manual) 92.0 H D Band Neutrophils % Lymphocytes % 5.6 L D Lymphocytes % (Manual) 6.0 L D Monocytes % 1.7 L Monocytes % (Manual) 2 L Eosinophils % 0.1 D Basophils % 0.3 Nucleated RBC % 0 Hypochromia 1+ Platelet Estimate Increased Platelet Comment No clumping noted Anisocytosis 1+ Microcytosis 1+ Macrocytosis 1+ PT with INR 12.20 INR 1.03 PTT (Actin FS) Sodium 142 Potassium 3.6 Chloride 108 H Carbon Dioxide 25 Anion Gap 8 BUN 13 Creatinine 1.6 H Creat Clearance w eGFR 46.56 POC Glucometer Random Glucose 210 H Hemoglobin A1c % Calcium 9.2 Magnesium Total Bilirubin 0.6 AST 28 ALT 20 Alkaline Phosphatase 294 H Creatine Kinase Troponin I Total Protein 8.2 Albumin 3.5 Triglycerides Cholesterol Total LDL Cholesterol HDL Cholesterol Lipase 625 H Stool Occult Blood Blood Type Antibody Screen 07/25/18 07/25/18 07/26/18 18:40 23:00 05:30 WBC 13.2 H 12.4 H RBC 3.76 L 3.39 L Hgb 10.1 L 8.9 L Hct 31.1 L 28.0 L MCV 82.7 82.6 MCH 26.8 26.4 MCHC 32.5 31.9 L RDW 17.1 H 17.3 H Plt Count 463 H 401 MPV 7.0 L 7.1 L Absolute Neuts (auto) 12.1 H 10.6 H Total Counted 100 Neutrophils % 91.5 H 85.2 H Neutrophils % (Manual) 92.0 H Band Neutrophils % 1.0 Lymphocytes % 5.8 L 8.9 D Lymphocytes % (Manual) 5.0 L Monocytes % 2.3 L 5.4 D Monocytes % (Manual) 2 L Eosinophils % 0.0 D 0.0 Basophils % 0.4 0.5 Nucleated RBC % 0 0 Hypochromia 1+ Platelet Estimate Slt increase Platelet Comment No clumping noted Anisocytosis 1+ Microcytosis Macrocytosis PT with INR INR PTT (Actin FS) Sodium Potassium Chloride Carbon Dioxide Anion Gap BUN Creatinine Creat Clearance w eGFR POC Glucometer Random Glucose Hemoglobin A1c % Calcium Magnesium Total Bilirubin AST ALT Alkaline Phosphatase Creatine Kinase Troponin I Total Protein Albumin Triglycerides Cholesterol Total LDL Cholesterol HDL Cholesterol Lipase Stool Occult Blood Blood Type A POSITIVE Antibody Screen Negative 07/26/18 07/26/18 07/26/18 05:30 05:30 05:30 WBC RBC Hgb Hct MCV MCH MCHC RDW Plt Count MPV Absolute Neuts (auto) Total Counted Neutrophils % Neutrophils % (Manual) Band Neutrophils % Lymphocytes % Lymphocytes % (Manual) Monocytes % Monocytes % (Manual) Eosinophils % Basophils % Nucleated RBC % Hypochromia Platelet Estimate Platelet Comment Anisocytosis Microcytosis Macrocytosis PT with INR 12.60 INR 1.07 PTT (Actin FS) 27.4 Sodium 145 Potassium 3.6 Chloride 115 H Carbon Dioxide 25 Anion Gap 6 L BUN 14 Creatinine 1.5 H Creat Clearance w eGFR 50.16 POC Glucometer Random Glucose 174 H Hemoglobin A1c % 7.6 H Calcium 8.2 L Magnesium 2.4 Total Bilirubin 0.4 AST 16 ALT 14 Alkaline Phosphatase 219 H Creatine Kinase Cancelled Troponin I Cancelled Total Protein 6.5 Albumin 2.8 L Triglycerides 131 Cholesterol 141 Total LDL Cholesterol 83 HDL Cholesterol 50 Lipase 424 H Stool Occult Blood Blood Type Antibody Screen 07/26/18 07/26/18 07/26/18 06:02 09:15 12:09 WBC RBC Hgb Hct MCV MCH MCHC RDW Plt Count MPV Absolute Neuts (auto) Total Counted Neutrophils % Neutrophils % (Manual) Band Neutrophils % Lymphocytes % Lymphocytes % (Manual) Monocytes % Monocytes % (Manual) Eosinophils % Basophils % Nucleated RBC % Hypochromia Platelet Estimate Platelet Comment Anisocytosis Microcytosis Macrocytosis PT with INR INR PTT (Actin FS) Sodium Potassium Chloride Carbon Dioxide Anion Gap BUN Creatinine Creat Clearance w eGFR POC Glucometer [phone] Random Glucose Hemoglobin A1c % Calcium Magnesium Total Bilirubin AST ALT Alkaline Phosphatase Creatine Kinase Troponin I Total Protein Albumin Triglycerides Cholesterol Total LDL Cholesterol HDL Cholesterol Lipase Stool Occult Blood Negative Blood Type Antibody Screen Active Medications Generic Name Dose Route Start Last Admin Trade Name Freq PRN Reason Stop Dose Admin Pantoprazole Sodium 80 mg/ 100 mls @ 10 mls/hr 07/25/18 19:00 07/26/18 09:42 Sodium Chloride IVPB Not Given Q10H JESUS 8 MG/HR Lactated Ringer's 1,000 ml in 1,000 mls @ 100 mls/hr 07/26/18 10:00 07/26/18 10:27 Lactated Ringers Solution IV 100 mls/hr ASDIR JESUS Administration Insulin Aspart 1 vial 07/26/18 07:00 07/26/18 12:10 Novolog Vial Sliding Scale - SQ 2 units ACHS JESUS Administration Protocol ASSESSMENT/PLAN: 48 yo M w/ PMHx of uncontrolled IDDMII (Noncompliant with medications), GERD, HTN, Left BKA, multiple soft tissue infections, 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 Patient admitted to ICU for further monitoring and management. GASTRO Coffee Ground Emesis -Concerning for UGIB from bleeding ulcerations vs possible mikayla dove due to retching. Patient admits to taking IBUPROFEN 800MG DAILY FOR THE LAST THREE MONTHS, which may be the source of bleeding. -2 large bore IV lines -Protonix gtt -IV NS @100cc/hr -NPO -monitor vitals for any overt bleeding, hypotension, tachycardia and decompensation -Monitor CBC and transfuse PRBC if Hgb <7 -Maintain platelets >50,000 -possible EGD possibly today -FOBT neg epigastric pain concern for pancreatitis, however unlikely...lipase is less than 3x the normal and is downtrending. CT scan shows no evidence of pancreatitis #Elevated ALP -Medical records reveal chronic history of elevated ALP -Will need obtain records from GI doctor -Besides liver, may also be elevated from bone, intestines, or kidneys. Increase levels also seen in biliary obstruction or intrahepatic cholestasis. However, Bilirubin not elevated. -abdominal U/S ordered to rule out stones, noted to have slightly distended gallbladder w/o evidence of stones on CT scan Consider GGT, and hepatitis panel. -GI follow up as outpatient. NEPHROLOGY #KENDRICK on CKD -Likely hypovolemia due to vomiting and poor oral intake -Continue IV Fluids with LR @100cc/hr -Monitor BMP and if worsening function, send urine electrolytes for FENa HEM/ONC #Anemia of Chronic Disease -Likely secondary to CKD. Patient noncompliant with his anti-htn and diabetes medications. Will need to follow up with nephrology as outpatient for further investigation -Last iron studies 05/30/18 which showed Transferrrin 145, FE 7, TIBC 183, Iron Sat 4, Ferritin 124.2 CARDIOLOGY #HTN -Currently uncontrolled -Limited on medications to give due to procedure for the morning and due to CKD -Will give hydralazine -Close BP monitoring ENDOCRINOLOGY #IDDMII -Patient noncompliant with medications -BGM, ISS -f/u A1C and lipid panel F/E/N -IV LR @100mls/hr -Electrolytes wnl, replete prn -NPO Prophylaxis -Avoid AC due to GI bleed, SCDs -Protonix drip for GI Disposition -Full code -ICU monitoring. possible EGD in the morning Visit type - Emergency Visit Emergency Visit: Yes ED Registration Date: 07/25/18 Care time: The patient presented to the Emergency Department on the above date and was hospitalized for further evaluation of their emergent condition. - New Patient This patient is new to me today: Yes Date on this admission: 07/26/18 - Critical Care Critical Care patient: Yes Total Critical Care Time (in minutes): 40 Critical Care Statement: The care of this patient involved high complexity decision making to prevent further life threatening deterioration of the patient 's condition and/or to evaluate & treat vital organ system(s) failure or risk of failure.
[2018-07-26 14:06] VITALS: BMI 30.9
[2018-07-26] MEDS ORDERED: MORPHINE SULFATE 2 MG/ML VIAL IVPUSH ONE ×2 (14:59→22:51)
--- NOTE | 2018-07-26 15:22 | PN ---
Progress Note, Physician - Current Medication List Current Medications: Active Medications Pantoprazole Sodium 80 mg/ (Sodium Chloride) 100 mls @ 10 mls/hr IVPB Q10H [facility] Last Admin: 07/26/18 09:42 Dose: Not Given Lactated Ringer's (Lactated Ringers Solution) 1,000 ml in 1,000 mls @ 100 mls/ hr IV ASDIR [facility] Last Admin: 07/26/18 10:27 Dose: 100 mls/hr Insulin Aspart (Novolog Vial Sliding Scale -) 1 vial SQ ACHS [facility]; Protocol Last Admin: 07/26/18 12:10 Dose: 2 units - Objective Vital Signs: Vital Signs Temperature 98.6 F 07/26/18 09:00 Pulse Rate 109 H 07/26/18 12:00 Respiratory Rate 16 07/26/18 12:00 Blood Pressure 175/96 H 07/26/18 12:00 O2 Sat by Pulse Oximetry (%) 97 07/26/18 08:12 Constitutional: Yes: No Distress HENT: Yes: Atraumatic Neck: Yes: Supple Cardiovascular: Yes: Regular Rate and Rhythm Respiratory: Yes: Rhonchi Gastrointestinal: Yes: Normal Bowel Sounds Extremities: Yes: WNL Edema: No Neurological: Yes: Alert, Oriented Labs: CBC, BMP 07/26/18 05:30 07/26/18 05:30 INR, PTT INR 1.07 (0.83-1.09) 07/26/18 05:30 Problem List - Problems (1) Nausea & vomiting Assessment/Plan: prn antiemetic much better today Code(s): R11.2 - NAUSEA WITH VOMITING, UNSPECIFIED (2) Hyperglycemia due to type 2 diabetes mellitus Assessment/Plan: bgms insulin...still npo Code(s): E11.65 - TYPE 2 DIABETES MELLITUS WITH HYPERGLYCEMIA (3) KENDRICK (acute kidney injury) Assessment/Plan: iv hydration Code(s): N17.9 - ACUTE KIDNEY FAILURE, UNSPECIFIED Assessment/Plan icu 35 min
[2018-07-26] MEDS ORDERED: LABETALOL HCL 5 MG/1 ML (100MG/20 ML VIAL) IVPUSH ONE (15:24)
--- NOTE | 2018-07-26 15:38 | CON.GI ---
Consult Consult Specialty:: GI: Dr. Cortez for Dr. Michelle, who will resume care 07/27 Referred by:: Hospitalist Service Reason for Consultation:: Nausea and retching - History of Present Illness Chief Complaint: "I'm nauseous" History of Present Illness: 48M admitted for evaluation of nausea and retching. Called to evaluate nausea and retching as well as coffee ground emesis. He is very emotional when he talks about his nausea and cries when he starts discussing it. He says that it has been occurring over the last couple of days. There has been no reported rectal bleeding, gross hematemesis, melena. he had an upper endoscopy in [address] yovana Dos Santos that revealed linear ulcerations in the distal esophagus and gastritis. He follows with Dr. Michelle. The patient states that he performed EGD in [address] [place] [address] 8 months office that showed ulcers. He was referred there by his PMD Dr. Momin. He underwent CT scan of the abdomen and pelvis that revealed a mildly distended gallbladder. It was otherwise unrevealing. He had a WBC of 12K and, elevated ALP (seems to be chronic) and anemia (chronic, normocytic). A guaiac was performed by the ICU team and it was negative. He has a prlonged QT interval. He was given multiple doses of reglan, was given phenergan and ? octreotide. He has been hypertensive - Past Medical History Cardio/Vascular: Yes: HTN, Hyperlipdemia Gastrointestinal: Yes: GERD (esophagitis / esophageal ulcer noted in 2014) Infectious Disease: Yes: MRSA (several years ago) Musculoskeletal: Yes: Other (left thigh pain) Endocrine: Yes: Diabetes Mellitus Dermatology: Yes: Cellulitis (mrsa) Additional Medical History: ? right knee fracture - Past Surgical History Past Surgical History: Yes: Amputation (left BKA) - Alcohol/Substance Use Hx Alcohol Use: Yes (prior alcohol abuse) History of Substance Use: reports: Cocaine (intranasal and crack coaine abuse in past) - Smoking History Smoking history: Former smoker Have you smoked in the past 12 months: No Aproximately how many cigarettes per day: 0 If you are a former smoker, when did you quit?: 10 years ago - Social History Usual Living Arrangement: With Spouse ADL: Independent Place of : [facility] History of Recent Travel: No Home Medications - Allergies Allergies/Adverse Reactions: Allergies Allergy/AdvReac Type Severity Reaction Status Date / Time No Known Allergies Allergy Verified 07/25/18 18:06 - Home Medications Home Medications: Ambulatory Orders Pantoprazole Sodium [Protonix -] 20 mg PO DAILY 05/29/18 Amlodipine Besylate [Norvasc -] 10 mg PO DAILY #30 tablet 06/06/18 Amoxicillin/Potassium Clav [Augmentin 500-125 Tablet] 1 each PO BID #20 tablet 06/06/18 Insulin (Levemir) [Levemir Vial] 10 units SQ AM #30 syringe 06/06/18 Labetalol HCl [Normodyne -] 100 mg PO BID #60 tablet 06/06/18 Family Disease History - Family Disease History Other Family History: States that he did not know his biological parents Review of Systems - Review of Systems Constitutional: denies: Chills Cardiovascular: denies: Chest Pain Gastrointestinal: reports: Abdominal Pain (after retching), Nausea, Vomiting. denies: Rectal Bleeding, Vomiting Blood Physical Exam-GI Vital Signs: Vital Signs Temperature 98 F 07/26/18 15:24 Pulse Rate 104 H 07/26/18 15:00 Respiratory Rate 18 07/26/18 15:00 Blood Pressure 190/108 H 07/26/18 15:00 O2 Sat by Pulse Oximetry (%) 97 07/26/18 08:12 Constitutional: Yes: Calm Eyes: No: Sclera Icterus Cardiovascular: Yes: Regular Rate and Rhythm. No: Murmur Respiratory: Yes: CTA Bilaterally Gastrointestinal Inspection: No: Distention, Scars ...Auscultate: Yes: Normoactive Bowel Sounds ...Palpate: Yes: Soft. No: Hepatomegaly, Splenomegaly, Tenderness ...Percussion: No: Tympanitic ...Rectal Exam: Yes: Other (Patient refused) Extremities: Yes: Amputation (left BKA) Edema: No (No LE edema) Neurological: Yes: Alert (, awake) Labs: CBC, BMP 07/26/18 05:30 07/26/18 05:30 INR, PTT INR 1.07 (0.83-1.09) 07/26/18 05:30 Hepatic Panel Total Bilirubin 0.4 mg/dL (0.2-1) 07/26/18 05:30 AST 16 U/L (15-37) 07/26/18 05:30 ALT 14 U/L (13-61) 07/26/18 05:30 Alkaline Phosphatase 219 U/L (45-117) H 07/26/18 05:30 Albumin 2.8 g/dl (3.4-5.0) L 07/26/18 05:30 Imaging - Results Cat Scan: Report Reviewed, Image Reviewed Problem List - Problems (1) Nausea & vomiting Assessment/Plan: Patient with main complaint of nausea. Unclear etiology of his complaints and it does appear that he has an appetite thrrough all of this as he is asking his nurse for something to eat. ? gastroparesis Advise: Avoidance of medications that may further prolong his QT interval Stopped PPI drip as I do not think this is a primary GI bleed event. The low BUN supportive of this as well. protonix 40mg IVPB daily NPO IV Hydration Agree w/ Abd US to evaluate gallbladder findings BP control. ? if atypical cardiac etiology needs to be excluded Possible EGD 07/27. Discussed with Dr. Miguel Angel Gaytan opiate analgesia. This will precipitate gastroparesis Code(s): R11.2 - NAUSEA WITH VOMITING, UNSPECIFIED
[2018-07-26] MEDS ORDERED: PT OWN MED DRAWER 7, Y5N ONE (15:54)
[2018-07-26 18:50] LABS: URINE APPEARANCE CLEAR; URINE BILIRUBIN NEGATIVE (<2.0 mg/dL); URINE COLOR YELLOW; URINE GLUCOSE (UA) 3+ (NEGATIVE); URINE KETONE TRACE (NEGATIVE); URINE LEUK ESTERASE NEGATIVE (NEGATIVE); URINE NITRITE NEGATIVE (NEGATIVE); URINE PROTEIN 3+ (NEGATIVE); URINE UROBILINOGEN NEGATIVE mg/dL (0.2-1.0)
[2018-07-26 18:55] LABS: URINE MUCUS RARE
[2018-07-26] MEDS: MORPHINE SULFATE 2 MG/ML VIAL IVPUSH PRN (19:28)
[2018-07-26] MEDS: PROMETHAZINE HCL 25 MG/1 ML VIAL IVPB PRN (19:41)
[2018-07-27] MEDS: PROMETHAZINE HCL 25 MG/1 ML VIAL IVPB PRN ×3 (01:56→15:26)
[2018-07-27] MEDS: MORPHINE SULFATE 2 MG/ML VIAL IVPUSH PRN (05:25)
[2018-07-27 06:21] LABS: ALBUMIN 2.6 g/dl (3.4-5.0); ALK PHOS 215 U/L (45-117); ANION GAP 10 MMOL/L (8-16); BILIRUBIN,TOTAL 0.7 mg/dL (0.2-1); BLOOD UREA NITROGEN 12 mg/dL (7-18); CHLORIDE 115 mmol/L (98-107); CO2 22 mmol/L (21-32); CREATININE 1.4 mg/dL (0.55-1.3); GLUCOSE,RANDOM 183 mg/dL (74-106); MAGNESIUM 2.1 mg/dL (1.8-2.4); POTASSIUM 3.3 mmol/L (3.5-5.1); SGOT/AST 50 U/L (15-37); SGPT/ALT 21 U/L (13-61); SODIUM 147 mmol/L (136-145)
[2018-07-27] MEDS: INSULIN SLIDING SCALE (NOVOLOG) 1 VIAL SQ SCH ×4 (06:36→22:20)
[2018-07-27 06:37] LABS: BASO % 0.4 % (0-2.0); HEMATOCRIT 26.2 % (35.4-49); HEMOGLOBIN 8.4 GM/dL (11.7-16.9); MCH 26.6 pg (25.7-33.7); MCHC 31.8 g/dl (32.0-35.9); MEAN CELL VOLUME 83.5 fl (80-96); MEAN PLT VOLUME 7.4 fl (7.5-11.1); MONO % 5.5 % (3.8-10.2); NEUT % 86.1 % (42.8-82.8); PLATELET COUNT 343 K/MM3 (134-434); RBC 3.14 M/mm3 (4.00-5.60); RDW 17.6 % (11.9-15.9); WHITE BLOOD COUNT 10.4 K/mm3 (4.0-10.0)
[2018-07-27] MEDS ORDERED: LORazepam 2 MG/ML SDV VIAL IVPUSH ONE ×2 (07:32→12:44)
[2018-07-27] MEDS ORDERED: ACETAMINOPHEN 1000 MG/100 ML VIAL (NON FORMULARY) IVPB PRN ×2 (08:02→18:52)
[2018-07-27] MEDS: KCL 10 MEQ IVPB 10 MEQ/100 ML INFUS.BAG IVPB SCH ×6 (08:33→20:00)
--- NOTE | 2018-07-27 08:48 | EKG ---
Test Reason : Blood Pressure : / mmHG Vent. Rate : 099 BPM Atrial Rate : 099 BPM P-R Int : 136 ms QRS Dur : 084 ms QT Int : 374 ms P-R-T Axes : 035 034 041 degrees QTc Int : 479 ms NORMAL SINUS RHYTHM WHEN COMPARED WITH ECG OF 26-JUL-2018 08:58, NO SIGNIFICANT CHANGE WAS FOUND Confirmed by DUKE WISEMAN MD ([id number]) on 07/27/2018 8:48:04 AM Referred By: Confirmed By:DUKE WISEMAN MD
[2018-07-27] MEDS: PANTOPRAZOLE SODIUM 80 MG in SODIUM CHLORIDE 100 ML IVPB SCH ×2 (09:02→17:59)
[2018-07-27] MEDS ORDERED: LABETALOL HCL 5 MG/1 ML (100MG/20 ML VIAL) IVPUSH ONE (09:30)
[2018-07-27] MEDS: LACTATED RINGERS SOLUTION 1,000 ML/1,000 ML INFUS.BAG IV SCH (10:12)
[2018-07-27] MEDS ORDERED: MORPHINE SULFATE 2 MG/ML VIAL IM ONE (10:44)
--- NOTE | 2018-07-27 11:34 | PN ---
GI Progress Note Subjective: patient continue to have intractable vomiting, h/o of q-t interval prolongation , Reglan and Zofran can increase Q-t inetrval S/p EGD 03/2018--noted to have retained food, was given reglan 5mg 30 min ac and Protonix 40mg bid which improved his symptoms - Objective Vital Signs: Vital Signs Temperature 98.5 F 07/27/18 06:00 Pulse Rate 100 H 07/27/18 10:00 Respiratory Rate 17 07/27/18 10:00 Blood Pressure 169/94 07/27/18 10:00 O2 Sat by Pulse Oximetry (%) 99 07/27/18 07:00 Constitutional: Well Nourished Eyes: Yes: Conjunctiva Clear HENT: Yes: Atraumatic Neck: Yes: Supple Cardiovascular: Yes: Regular Rate and Rhythm Respiratory: Yes: CTA Bilaterally ...Palpate: Yes: Soft. No: Firm/Rigid, Guarding, Hepatomegaly, Mass, Pulsatile Mass, Splenomegaly, Tenderness Labs: CBC, BMP 07/27/18 05:30 07/27/18 05:30 INR, PTT INR 1.07 (0.83-1.09) 07/26/18 05:30 Problem List - Problems (1) Intractable vomiting Assessment/Plan: R> will need cardiology consult and possibly start on low dose Reglan and zofran if approved by cardiology no need for repeat EGD aas this was done a few months ago Code(s): R11.10 - VOMITING, UNSPECIFIED
[2018-07-27] MEDS ORDERED: GABAPENTIN 100 MG CAPSULE (FP) PO SCH (12:30)
[2018-07-27] MEDS: GABAPENTIN 100 MG CAPSULE (FP) PO SCH ×3 (13:18→22:19)
--- NOTE | 2018-07-27 13:57 | PN ---
Physical Exam: SUBJECTIVE: Patient seen and examined in the ICU. c/o epigastric pain and nausea but afebrile. Noted to be retching/dry heaving, no blood noted. Has been hypertensive. given meds for agitation, pain, nausea which have been helping. Seen by GI yesterday. OBJECTIVE: Vital Signs Period Temp Pulse Resp BP Sys/Monet Pulse Ox Last 24 Hr 98 F-98.9 F 98-108 16-24 149-192/81-111 97-99 GENERAL:AOX3, NAD HEAD: NCAT EYES: sclera anicteric, conjunctiva clear. No lid lag. ENT: MMM NECK: supple, (-) Lymphadenopathy, JVD, or masses. LUNGS: CTAB HEART: Tachycardic with RR, normal S1 and S2 without m/r/g ABDOMEN: Soft, NTND hypo BS MUSCULOSKELETAL: No CVA tenderness. UPPER EXTREMITIES: No peripheral edema. LOWER EXTREMITIES: Left BKA with prosthesis in place. Right knee brace in place. No peripheral edema. NEUROLOGICAL: Cranial nerves II-XII intact. Normal Speech PSYCHIATRIC: Cooperative. Good eye contact. Appropriate mood and affect. Laboratory Results - last 24 hr 07/26/18 07/26/18 07/26/18 02:53 16:08 18:00 WBC RBC Hgb Hct MCV MCH MCHC RDW Plt Count MPV Absolute Neuts (auto) Neutrophils % Lymphocytes % Monocytes % Eosinophils % Basophils % Nucleated RBC % Sodium Potassium Chloride Carbon Dioxide Anion Gap BUN Creatinine Creat Clearance w eGFR POC Glucometer [phone] Random Glucose Calcium Phosphorus Magnesium Total Bilirubin AST ALT Alkaline Phosphatase Total Protein Albumin Urine Color Yellow Urine Appearance Clear Urine pH 7.0 Ur Specific [place] 1.017 Urine Protein 3+ H Urine Glucose (UA) 3+ H Urine Ketones Trace H Urine Blood Negative Urine Nitrite Negative Urine Bilirubin Negative Urine Urobilinogen Negative Ur Leukocyte Esterase Negative Urine WBC (Auto) 3 Urine RBC (Auto) 1 Urine Mucus Rare 07/26/18 07/27/18 07/27/18 22:31 05:30 05:30 WBC 10.4 H RBC 3.14 L Hgb 8.4 L Hct 26.2 L MCV 83.5 MCH 26.6 MCHC 31.8 L RDW 17.6 H Plt Count 343 MPV 7.4 L Absolute Neuts (auto) 9.0 H Neutrophils % 86.1 H Lymphocytes % 8.0 Monocytes % 5.5 Eosinophils % 0.0 Basophils % 0.4 Nucleated RBC % 0 Sodium 147 H Potassium 3.3 L Chloride 115 H Carbon Dioxide 22 Anion Gap 10 BUN 12 Creatinine 1.4 H Creat Clearance w eGFR 54.32 POC Glucometer [phone] Random Glucose 183 H Calcium 8.0 L Phosphorus 3.0 Magnesium 2.1 Total Bilirubin 0.7 AST 50 H ALT 21 Alkaline Phosphatase 215 H Total Protein 6.0 L Albumin 2.6 L Urine Color Urine Appearance Urine pH Ur Specific [place] Urine Protein Urine Glucose (UA) Urine Ketones Urine Blood Urine Nitrite Urine Bilirubin Urine Urobilinogen Ur Leukocyte Esterase Urine WBC (Auto) Urine RBC (Auto) Urine Mucus Active Medications Generic Name Dose Route Start Last Admin Trade Name Freq PRN Reason Stop Dose Admin Acetaminophen 1,000 mg 07/27/18 08:02 Ofirmev Injection - IVPB Q6H PRN PAIN Gabapentin 100 mg 07/27/18 12:30 07/27/18 13:23 Neurontin - PO Not Given TID [facility] Lactated Ringer's 1,000 ml in 1,000 mls @ 100 mls/hr 07/26/18 10:00 07/27/18 10:12 Lactated Ringers Solution IV Not Given ASDIR [facility] Pantoprazole Sodium 80 mg/ 100 mls @ 10 mls/hr 07/27/18 07:15 07/27/18 09:02 Sodium Chloride IVPB 10 mls/hr Q10H JESUS Administration 8 MG/HR Insulin Aspart 1 vial 07/26/18 07:00 07/27/18 11:40 Novolog Vial Sliding Scale - SQ Not Given ACHS [facility] Protocol Morphine Sulfate 2 mg 07/26/18 19:21 07/27/18 05:25 Morphine Sulfate IVPUSH 2 mg Q4H PRN Administration PAIN LEVEL 7 - 10 Promethazine HCl 12.5 mg 07/26/18 19:20 07/27/18 08:34 Phenergan Injection - IVPB 12.5 mg Q6H PRN Administration NAUSEA AND/OR VOMITING ASSESSMENT/PLAN: 48 yo M w/ PMHx of uncontrolled IDDMII (Noncompliant with medications), GERD, HTN, Left BKA, multiple soft tissue infections, 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 Patient admitted to ICU for further monitoring and management. GASTRO Gastroparesis/epigastric pain/??Coffee Ground Emesis ?? -No blood has been seen so far, only dry heaving. pt evaluated by GI yesterday and determined to be unlikely having GIB, low BUN supportive of this. pt sxs likely 2/2 gastroparesis. However, will keep watch due to concern for possible UGIB from bleeding ulcerations vs possible mikayla dove due to retching. Patient admits to taking IBUPROFEN 800MG DAILY FOR THE LAST THREE MONTHS, which may be a source for bleeding. -evaluated by GI, no need for repeat EGD as this was done a few months ago. S/p EGD 03/2018--noted to have retained food, was given reglan 5mg 30 min ac and Protonix 40mg bid which improved his symptoms -keep Protonix gtt for now -pain ctl w/ IV tylenol and Neurontin. Minimize opiate analgesia. This will precipitate gastroparesis -reglan for prokinetic effect, monitor Qtc (today 479) -IV LR @100cc/hr -NPO, advance as tolerated -monitor vitals for any overt bleeding, hypotension, tachycardia and decompensation -Monitor CBC and transfuse PRBC if Hgb <7 -Maintain platelets >50,000 -FOBT neg -CT scan shows no evidence of pancreatitis and lipase is less than 3x the normal and is downtrending. #Elevated ALP -Medical records reveal chronic history of elevated ALP -Will need obtain records from GI doctor -Besides liver, may also be elevated from bone, intestines, or kidneys. Increase levels also seen in biliary obstruction or intrahepatic cholestasis. However, Bilirubin not elevated. -abdominal U/S ordered to rule out stones, noted to have slightly distended gallbladder w/o evidence of stones on CT scan Consider GGT, and hepatitis panel. -GI follow up as outpatient. NEPHROLOGY #KENDRICK on CKD - slowly improving -Likely hypovolemia due to vomiting and poor oral intake -Continue IV Fluids with LR @100cc/hr -Monitor BMP and if worsening function, send urine electrolytes for FENa HEM/ONC #Anemia of Chronic Disease -Likely secondary to CKD. Patient noncompliant with his anti-htn and diabetes medications. Will need to follow up with nephrology as outpatient for further investigation -Last iron studies 05/30/18 which showed Transferrrin 145, FE 7, TIBC 183, Iron Sat 4, Ferritin 124.2 CARDIOLOGY #HTN -Currently uncontrolled -Limited on medications to give due inability to tolerate PO and due to KENDRICK/CKD -Will give hydralazine or labetolol -Close BP monitoring ENDOCRINOLOGY #IDDMII -Patient noncompliant with medications -BGM, ISS - A1C 7.6 -f/u lipid panel F/E/N -IV LR @100mls/hr -Electrolytes wnl, replete prn -NPO, advance as tolerated Prophylaxis -SQH, monitor H/H and signs of GIB -Protonix drip for GI Disposition -Full code -pt is stable and ready for transfer to floors. Further care per primary team/ PCP. Visit type - Emergency Visit Emergency Visit: Yes ED Registration Date: 07/25/18 Care time: The patient presented to the Emergency Department on the above date and was hospitalized for further evaluation of their emergent condition. - New Patient This patient is new to me today: Yes Date on this admission: 07/27/18 - Critical Care Critical Care patient: Yes Total Critical Care Time (in minutes): 40 Critical Care Statement: The care of this patient involved high complexity decision making to prevent further life threatening deterioration of the patient 's condition and/or to evaluate & treat vital organ system(s) failure or risk of failure.
[2018-07-27] MEDS ORDERED: HEPARIN NA (PORCINE) 5,000 UNITS/ML 1ML VIAL SQ SCH ×3 (14:00→22:00)
--- NOTE | 2018-07-27 14:33 | PN ---
Teaching Attending Note Name of Resident: Josesito Galeano ATTENDING PHYSICIAN STATEMENT I saw and evaluated the patient. I reviewed the resident's note and discussed the case with the resident. I agree with the resident's findings and plan as documented. SUBJECTIVE: Patient seen and examined in the ICU. Still with significant epigastric pain and nausea and dry heaving. No fevers recorded. No CP or SOB. Intake & Output 07/24/18 07/25/18 07/26/18 07/27/18 23:59 23:59 23:59 23:59 Intake Total 2160 700 Output Total 1300 500 Balance 860 200 Weight 200 lb 216 lb Last Vital Signs Temp Pulse Resp BP Pulse Ox 98.9 F 98 H 20 170/92 99 07/27/18 10:00 07/27/18 12:00 07/27/18 12:00 07/27/18 12:00 07/27/18 07:00 Active Medications Acetaminophen (Ofirmev Injection -) 1,000 mg IVPB Q6H PRN PRN Reason: PAIN Gabapentin (Neurontin -) 100 mg PO TID [facility] Last Admin: 07/27/18 13:23 Dose: Not Given Heparin Sodium (Porcine) (Heparin -) 5,000 unit SQ TID JESUS Lactated Ringer's (Lactated Ringers Solution) 1,000 ml in 1,000 mls @ 100 mls/ hr IV ASDIR [facility] Last Admin: 07/27/18 10:12 Dose: Not Given Pantoprazole Sodium 80 mg/ (Sodium Chloride) 100 mls @ 10 mls/hr IVPB Q10H [facility] Last Admin: 07/27/18 09:02 Dose: 10 mls/hr Insulin Aspart (Novolog Vial Sliding Scale -) 1 vial SQ ACHS [facility]; Protocol Last Admin: 07/27/18 11:40 Dose: Not Given Morphine Sulfate (Morphine Sulfate) 2 mg IVPUSH Q4H PRN PRN Reason: PAIN LEVEL 7 - 10 Last Admin: 07/27/18 05:25 Dose: 2 mg Promethazine HCl (Phenergan Injection -) 12.5 mg IVPB Q6H PRN PRN Reason: NAUSEA AND/OR VOMITING Last Admin: 07/27/18 08:34 Dose: 12.5 mg OBJECTIVE: Gen: Uncomfortable due to nausea Heart: RRR Lung: decreased breath sounds at the bases Abd: soft, mild TTP epigastric region Ext: L BKA, no edema Laboratory Results - last 24 hr 07/26/18 07/26/18 07/26/18 02:53 16:08 18:00 WBC RBC Hgb Hct MCV MCH MCHC RDW Plt Count MPV Absolute Neuts (auto) Neutrophils % Lymphocytes % Monocytes % Eosinophils % Basophils % Nucleated RBC % Sodium Potassium Chloride Carbon Dioxide Anion Gap BUN Creatinine Creat Clearance w eGFR POC Glucometer 223.90993 103.40660 Random Glucose Calcium Phosphorus Magnesium Total Bilirubin AST ALT Alkaline Phosphatase Total Protein Albumin Urine Color Yellow Urine Appearance Clear Urine pH 7.0 Ur Specific [place] 1.017 Urine Protein 3+ H Urine Glucose (UA) 3+ H Urine Ketones Trace H Urine Blood Negative Urine Nitrite Negative Urine Bilirubin Negative Urine Urobilinogen Negative Ur Leukocyte Esterase Negative Urine WBC (Auto) 3 Urine RBC (Auto) 1 Urine Mucus Rare 07/26/18 07/27/18 07/27/18 22:31 05:30 05:30 WBC 10.4 H RBC 3.14 L Hgb 8.4 L Hct 26.2 L MCV 83.5 MCH 26.6 MCHC 31.8 L RDW 17.6 H Plt Count 343 MPV 7.4 L Absolute Neuts (auto) 9.0 H Neutrophils % 86.1 H Lymphocytes % 8.0 Monocytes % 5.5 Eosinophils % 0.0 Basophils % 0.4 Nucleated RBC % 0 Sodium 147 H Potassium 3.3 L Chloride 115 H Carbon Dioxide 22 Anion Gap 10 BUN 12 Creatinine 1.4 H Creat Clearance w eGFR 54.32 POC Glucometer [phone] Random Glucose 183 H Calcium 8.0 L Phosphorus 3.0 Magnesium 2.1 Total Bilirubin 0.7 AST 50 H ALT 21 Alkaline Phosphatase 215 H Total Protein 6.0 L Albumin 2.6 L Urine Color Urine Appearance Urine pH Ur Specific [place] Urine Protein Urine Glucose (UA) Urine Ketones Urine Blood Urine Nitrite Urine Bilirubin Urine Urobilinogen Ur Leukocyte Esterase Urine WBC (Auto) Urine RBC (Auto) Urine Mucus ASSESSMENT AND PLAN: r/o GI Bleed Do not suspect Pancreatitis Anemia Acute on Chronic Renal Failure HTN DM s/p L BKA - monitor H/H - normal transfusion thresholds - continue protonix per GI - PO as tolerated - Pain control - IVF - monitor urine output, creatinine - DVT prophylaxis - When can tolerate PO, trial of Neurontin Dr Iverson
[2018-07-27 16:42] LABS: ANION GAP 7 MMOL/L (8-16); BLOOD UREA NITROGEN 11 mg/dL (7-18); CALCIUM 8.2 mg/dL (8.5-10.1); CHLORIDE 114 mmol/L (98-107); CO2 23 mmol/L (21-32); CREATININE 1.3 mg/dL (0.55-1.3); GLUCOSE,RANDOM 191 mg/dL (74-106); POTASSIUM 3.4 mmol/L (3.5-5.1); SODIUM 144 mmol/L (136-145)
[2018-07-27] MEDS ORDERED: amLODIPine BESYLATE 10 MG TABLET (FP) PO ONE (17:00)
[2018-07-27] MEDS ORDERED: MAGNESIUM HYDROX 2400MG/30ML ORAL SUSPENSION 30 ML CUP PO PRN (17:42)
[2018-07-27] MEDS ORDERED: LORazepam 2 MG/ML SDV VIAL ONE (18:34)
[2018-07-27] MEDS ORDERED: PROMETHAZINE HCL 25 MG/1 ML VIAL IVPB PRN (18:52)
[2018-07-27] MEDS ORDERED: MORPHINE SULFATE 2 MG/ML VIAL IVPUSH PRN (18:52)
[2018-07-27] MEDS ORDERED: LACTATED RINGERS SOLUTION 1,000 ML/1,000 ML INFUS.BAG IV SCH (18:52)
--- NOTE | 2018-07-27 19:31 | PN ---
Progress Note, Physician - Current Medication List Current Medications: Active Medications Acetaminophen (Ofirmev Injection -) 1,000 mg IVPB Q6H PRN PRN Reason: PAIN Gabapentin (Neurontin -) 100 mg PO TID JESUS Heparin Sodium (Porcine) (Heparin -) 5,000 unit SQ TID JESUS Potassium Chloride (Potassium Chloride 10 Meq Premix Ivpb -) 10 meq in 100 mls @ 100 mls/hr IVPB Q60M [facility] Stop: 07/27/18 19:59 Last Admin: 07/27/18 17:12 Dose: 100 mls/hr Lactated Ringer's (Lactated Ringers Solution) 1,000 ml in 1,000 mls @ 100 mls/ hr IV ASDIR [facility] Pantoprazole Sodium 80 mg/ (Sodium Chloride) 100 mls @ 10 mls/hr IVPB Q10H [facility]ESUS Insulin Aspart (Novolog Vial Sliding Scale -) 1 vial SQ ACHS [facility]; Protocol Magnesium Hydroxide (Milk Of Magnesia -) 30 ml PO Q8H PRN PRN Reason: INDIGESTION Last Admin: 07/27/18 18:00 Dose: 30 ml Morphine Sulfate (Morphine Sulfate) 2 mg IVPUSH Q4H PRN PRN Reason: PAIN LEVEL 7 - 10 Promethazine HCl (Phenergan Injection -) 12.5 mg IVPB Q6H PRN PRN Reason: NAUSEA AND/OR VOMITING Sucralfate (Carafate Oral Suspension -) 1 gm PO BID [facility] - Objective Vital Signs: Vital Signs Temperature 99.0 F 07/27/18 14:00 Pulse Rate 97 H 07/27/18 18:05 Respiratory Rate 18 07/27/18 17:35 Blood Pressure 162/97 07/27/18 18:05 O2 Sat by Pulse Oximetry (%) 99 07/27/18 07:00 Constitutional: Yes: No Distress HENT: Yes: Atraumatic Neck: Yes: Supple Cardiovascular: Yes: Regular Rate and Rhythm Respiratory: Yes: CTA Bilaterally Gastrointestinal: Yes: Normal Bowel Sounds Extremities: Yes: WNL Neurological: Yes: Alert, Oriented Labs: CBC, BMP 07/27/18 05:30 07/27/18 16:00 INR, PTT INR 1.07 (0.83-1.09) 07/26/18 05:30 Problem List - Problems (1) Nausea & vomiting Assessment/Plan: much improved will start him on clear liquid diet Code(s): R11.2 - NAUSEA WITH VOMITING, UNSPECIFIED (2) Hyperglycemia due to type 2 diabetes mellitus Assessment/Plan: bgms insulin prn Code(s): E11.65 - TYPE 2 DIABETES MELLITUS WITH HYPERGLYCEMIA (3) KENDRICK (acute kidney injury) Assessment/Plan: iv hydration Code(s): N17.9 - ACUTE KIDNEY FAILURE, UNSPECIFIED
[2018-07-27] MEDS ORDERED: FLU VACCINE QUAD 60 MCG/0.5 ML (MDV 18-19) IM ONE (20:30)
[2018-07-27] MEDS ORDERED: PNEUMOC 13-VAL CONJ-DIP CRM/PF 0.5 ML DISP.SYRIN IM ONE (20:30)
[2018-07-27] MEDS ORDERED: LORazepam 1 MG TABLET PO PRN (21:11)
[2018-07-27] MEDS ORDERED: INSULIN (NOVOLOG) ASPART 100 UNITS/ML 10ML VIAL ONE (22:12)
[2018-07-27] MEDS: SUCRALFATE 1 GM/10 ML UNIT DOSE CUPS PO SCH ×2 (22:19)
[2018-07-28] MEDS ORDERED: PANTOPRAZOLE SODIUM 80 MG in SODIUM CHLORIDE 100 ML IVPB SCH (03:15)
[2018-07-28] MEDS: GABAPENTIN 100 MG CAPSULE (FP) PO SCH (06:03)
[2018-07-28] MEDS: INSULIN SLIDING SCALE (NOVOLOG) 1 VIAL SQ SCH (06:03)
[2018-07-28 06:39] VITALS: BP 146/93; PULSE 100; TEMP 99.1
[2018-07-28 07:47] LABS: BASO % 0.4 % (0-2.0); EOS % 2.1 % (0-4.5); HEMATOCRIT 26.8 % (35.4-49); HEMOGLOBIN 8.4 GM/dL (11.7-16.9); LYMPH % 14.5 % (8-40); MCH 26.2 pg (25.7-33.7); MCHC 31.4 g/dl (32.0-35.9); MEAN CELL VOLUME 83.7 fl (80-96); MEAN PLT VOLUME 7.4 fl (7.5-11.1); MONO % 5.3 % (3.8-10.2); NEUT % 77.7 % (42.8-82.8); PLATELET COUNT 288 K/MM3 (134-434); RBC 3.21 M/mm3 (4.00-5.60); RDW 17.3 % (11.9-15.9)
[2018-07-28 08:16] LABS: ALBUMIN 2.6 g/dl (3.4-5.0); ALK PHOS 213 U/L (45-117); ANION GAP 8 MMOL/L (8-16); BILIRUBIN,TOTAL 0.7 mg/dL (0.2-1); BLOOD UREA NITROGEN 9 mg/dL (7-18); CHLORIDE 110 mmol/L (98-107); CO2 24 mmol/L (21-32); CREATININE 1.4 mg/dL (0.55-1.3); GLUCOSE,RANDOM 170 mg/dL (74-106); MAGNESIUM 2.2 mg/dL (1.8-2.4); PHOSPHOROUS 2.5 mg/dL (2.5-4.9); POTASSIUM 3.1 mmol/L (3.5-5.1); SGOT/AST 36 U/L (15-37); SGPT/ALT 24 U/L (13-61); SODIUM 142 mmol/L (136-145); TOT PROT 5.8 g/dl (6.4-8.2)
[2018-07-28] MEDS ORDERED: amLODIPine BESYLATE 10 MG TABLET (FP) PO SCH (10:00)
--- NOTE | 2018-07-28 12:16 | DS ---
Physical Examination Vital Signs: Vital Signs Temperature 99.1 F 07/28/18 06:37 Pulse Rate 100 H 07/28/18 06:37 Respiratory Rate 20 07/28/18 06:37 Blood Pressure 146/93 07/28/18 06:37 O2 Sat by Pulse Oximetry (%) 96 07/27/18 22:00 Labs: CBC, BMP 07/28/18 06:30 07/28/18 06:30 Discharge Summary Reason For Visit: COFFEE GROUND EMESIS,INTRACTABLE VOMITING,NAUSEA A - Instructions Disposition: AGAINST MEDICAL ADVICE - Home Medications Comprehensive Discharge Medication List: Ambulatory Orders Pantoprazole Sodium [Protonix -] 20 mg PO DAILY 05/29/18 Amlodipine Besylate [Norvasc -] 10 mg PO DAILY #30 tablet 06/06/18 Amoxicillin/Potassium Clav [Augmentin 500-125 Tablet] 1 each PO BID #20 tablet 06/06/18 Insulin (Levemir) [Levemir Vial] 10 units SQ AM #30 syringe 06/06/18 Labetalol HCl [Normodyne -] 100 mg PO BID #60 tablet 06/06/18 ama
[2018-08-01] MEDS ORDERED: DEXTROSE 5%-0.45% SALINE 1,000 ML IV SCH (17:45)
[2018-08-01] MEDS ORDERED: INSULIN SLIDING SCALE (NOVOLOG) 1 VIAL SQ SCH (22:00)
[2018-08-02 08:33] LABS: BASO % 0.5 % (0-2.0); EOS % 1.7 % (0-4.5); HEMATOCRIT 28.6 % (35.4-49); HEMOGLOBIN 9.2 GM/dL (11.7-16.9); LYMPH % 7.4 % (8-40); MCH 26.8 pg (25.7-33.7); MEAN CELL VOLUME 83.6 fl (80-96); MEAN PLT VOLUME 8.1 fl (7.5-11.1); MONO % 6.2 % (3.8-10.2); NEUT % 84.2 % (42.8-82.8); PLATELET COUNT 252 K/MM3 (134-434); RBC 3.42 M/mm3 (4.00-5.60); RDW 17.1 % (11.9-15.9); WHITE BLOOD COUNT 10.1 K/mm3 (4.0-10.0)
== END 2018-07-28 08:43 | disposition left against medical advice (07) | DRG 48 ==
LOC: JER 17:54 → JERBED 19:39 → JICU 07-26 02:39 → J8W 07-27 21:04
PROVIDERS: ADMIT Internal Medicine; ATTEND Internal Medicine
DX: E11.43 Type 2 diabetes mellitus with diabetic autonomic (poly)neuropathy (principal); K31.84 Gastroparesis; N17.9 Acute kidney failure, unspecified; K92.0 Hematemesis; E11.65 Type 2 diabetes mellitus with hyperglycemia; E11.22 Type 2 diabetes mellitus with diabetic chronic kidney disease; K21.9 Gastro-esophageal reflux disease without esophagitis; Z79.4 Long term (current) use of insulin; Z91.14 Patient's other noncompliance with medication regimen; Z89.512 Acquired absence of left leg below knee; I12.9 Hypertensive chronic kidney disease with stage 1 through stage 4 chronic kidney disease, or unspecified chronic kidney disease; N18.9 Chronic kidney disease, unspecified; E86.1 Hypovolemia; D63.8 Anemia in other chronic diseases classified elsewhere
CPT/HCPCS: 36415; 71045-TC-FY; 74176-TC; 76705-TC; 80048; 80053; 80061; 81003; 81015; 82272; 82962; 83036; 83690; 83721; 83735; 84100; 85025; 85610; 85730; 86850; 86900; 86901; 93005; 93010; 99283-25; J0131; J1644; J7030

== ENCOUNTER 2018-08-01 04:10 | Inpatient (IN) | payer OTHER ==
--- NOTE | 2018-08-01 04:21 | PDOC ---
History of Present Illness - General Stated Complaint: CHEST PAIN Time Seen by Provider: 08/01/18 04:21 - History of Present Illness Initial Comments: 08/01/18 04:56 Mr. Bhakta is a 48 yo male w/ pmh of IDDM (noncompliant w/ medications), GERD, HTN, left BKA, and recent admission 07/25 for coffee ground emesis (patient left AMA from hospital 07/28 when he was reportedly feeling better) who presents for evaluation of 1 day history of epigastric pain and vomiting. Patient had previously been evaluated by GI and ICU and symptoms thought to be due to gastroparesis. EGD was differed as one was performed w/in the last 6 month. Patient was feeling well after leaving AMA until approximately 6pm tonight when he began experiencing significant nausea with retching productive of clear liquid with concurrent epigastric pain and both L&R back and chest pain. Past History - Past Medical History Allergies/Adverse Reactions: Allergies Allergy/AdvReac Type Severity Reaction Status Date / Time No Known Allergies Allergy Verified 08/01/18 04:45 Home Medications: Ambulatory Orders Pantoprazole Sodium [Protonix -] 20 mg PO DAILY 05/29/18 Amlodipine Besylate [Norvasc -] 10 mg PO DAILY #30 tablet 06/06/18 Amoxicillin/Potassium Clav [Augmentin 500-125 Tablet] 1 each PO BID #20 tablet 06/06/18 Insulin (Levemir) [Levemir Vial] 10 units SQ AM #30 syringe 06/06/18 Labetalol HCl [Normodyne -] 100 mg PO BID #60 tablet 06/06/18 Anemia: No Asthma: No Cancer: No Cardiac Disorders: Yes (DVT) CVA: No COPD: No CHF: No Dementia: No Diabetes: Yes (pt denies taking any meds) GI Disorders: (REFLUX) Disorders: No HTN: Yes Hypercholesterolemia: No Liver Disease: No Seizures: No Thyroid Disease: No - Surgical History Abdominal Surgery: No Appendectomy: No Cardiac Surgery: No Cholecystectomy: No Lung Surgery: No Neurologic Surgery: No Orthopedic Surgery: Yes (lt leg amputation ( lt BKA) 4 years ago) - Family Disease History Family Disease History: Diabetes: Father - Immunization History Immunization Up to Date: Yes - Suicide/Smoking/Psychosocial Hx Smoking Status: No Smoking History: Former smoker Have you smoked in the past 12 months: No Number of Cigarettes Smoked Daily: 0 If you are a former smoker, when did you quit?: 10 years ago Cigars Per Day: 0 Hx Alcohol Use: No Drug/Substance Use Hx: No Substance Use Type: None Hx Substance Use Treatment: No Review of Systems - Review of Systems Comments:: 08/01/18 05:05 GENERAL/CONSTITUTIONAL: No fever or chills. No weakness. HEAD, EYES, EARS, NOSE AND THROAT: No change in vision. No ear pain or discharge. No sore throat. CARDIOVASCULAR: +Chest pain as described with concurrent back pain. No shortness of breath RESPIRATORY: No cough, wheezing, or hemoptysis. GASTROINTESTINAL: +N/V since 6pm last night w/ abdominal pain. Single episode of diarrhea at 5pm last night. GENITOURINARY: No dysuria, frequency, or change in urination. MUSCULOSKELETAL: No joint or muscle swelling or pain. No neck pain. SKIN: No rash NEUROLOGIC: No headache, vertigo, loss of consciousness, or change in strength/ sensation. ENDOCRINE: No increased thirst. No abnormal weight change HEMATOLOGIC/LYMPHATIC: No anemia, easy bleeding, or history of blood clots. ALLERGIC/IMMUNOLOGIC: No hives or skin allergy. *Physical Exam - Physical Exam Comments: 08/01/18 05:07 GENERAL: +Patient appears uncomfortable. Awake, alert, and fully oriented HEAD: No signs of trauma, normocephalic, atraumatic EYES: PERRLA, EOMI, sclera anicteric, conjunctiva clear ENT: Auricles normal inspection, hearing grossly normal, nares patent, oropharynx clear without exudates. Moist mucosa NECK: Normal ROM, supple, no lymphadenopathy, JVD, or masses LUNGS: No distress, speaks full sentences, clear to auscultation bilaterally HEART: Regular rate and rhythm, normal S1 and S2, no murmurs, rubs or gallops, peripheral pulses normal and equal bilaterally. ABDOMEN: +Epigastric TTP, soft, normoactive bowel sounds. No guarding, no rebound. No masses EXTREMITIES: Normal inspection, Normal range of motion, no edema. No clubbing or cyanosis. NEUROLOGICAL: Cranial nerves II through XII grossly intact. Normal speech, normal gait, no focal sensorimotor deficits SKIN: Warm, Dry, normal turgor, no rashes or lesions noted. ED Treatment Course - LABORATORY CBC & Chemistry Diagram: 08/01/18 05:42 08/01/18 05:42 Medical Decision Making - Medical Decision Making 08/01/18 06:36 Mr. Bhakta is a 48 yo male w/ pmh as described who presents for evaluation of chest, abdominal, and back pain. Patient recently left from hospital [place] with similar presentation. Workup started with labs as below significant for elevated WBC and lipase. Suspect patient presentation from pancreatitis vs. gastroparesis vs. GI bleed. Protonix push 40mg given for prophylaxis as well. Patient pain controlled with reglan, fluids, morphine, tylenol. Patient currently sleeping in bed. Admitting for further workup/evaluation. 08/01/18 07:13 Patient signed out to Dr. Vizcaino for further evaluation. Laboratory Results - last 24 hr 08/01/18 08/01/18 08/01/18 05:42 05:42 05:42 WBC 10.4 H RBC 3.93 L Hgb 10.4 L Hct 32.7 L D MCV 83.3 MCH 26.5 MCHC 31.8 L RDW 17.3 H Plt Count 307 MPV 7.9 Absolute Neuts (auto) 8.8 H Neutrophils % 84.8 H Lymphocytes % 9.6 D Monocytes % 3.9 Eosinophils % 1.1 Basophils % 0.6 Nucleated RBC % 0 Sodium 140 Potassium 3.0 L Chloride 108 H Carbon Dioxide 22 Anion Gap 10 BUN 9 Creatinine 1.5 H Creat Clearance w eGFR 50.16 Random Glucose 190 H Calcium 8.2 L Total Bilirubin 0.8 AST 22 ALT 19 Alkaline Phosphatase 250 H Creatine Kinase 62 Troponin I < 0.02 Total Protein 6.9 Albumin 3.0 L Lipase 610 H *DC/Admit/Observation/Transfer Diagnosis at time of Disposition: Gastroparesis due to DM Nausea & vomiting Qualifiers: Vomiting type: unspecified Vomiting Intractability: non-intractable Qualified Code(s): R11.2 - Nausea with vomiting, unspecified Pancreatitis Qualifiers: Chronicity: acute Pancreatitis type: unspecified pancreatitis type Acute pancreatitis complication: unspecified Qualified Code(s): K85.90 - Acute pancreatitis without necrosis or infection, unspecified GI bleed Qualifiers: GI bleed type/associated pathology: unspecified gastrointestinal hemorrhage type Qualified Code(s): K92.2 - Gastrointestinal hemorrhage, unspecified - Discharge Dispostion Condition at time of disposition: Fair Decision to Admit order: Yes - Referrals Referrals: Dallas Momin [Primary Care Provider] - - Patient Instructions - Post Discharge Activity
[2018-08-01] MEDS ORDERED: ACETAMINOPHEN 1000 MG/100 ML VIAL (NON FORMULARY) IVPB ONE (04:34)
[2018-08-01] MEDS ORDERED: SODIUM CHLORIDE 1,000 ML IV STA (04:35)
[2018-08-01] MEDS ORDERED: PANTOPRAZOLE SODIUM 40 MG VIAL IVPUSH ONE (04:36)
[2018-08-01] MEDS ORDERED: morphine CARPU-JECT 4 MG/1 ML DISP.SYRIN IVPUSH ONE ×2 (04:45→12:35)
[2018-08-01] MEDS ORDERED: METOCLOPRAMIDE HCL INJECTION 10 MG/2 ML VIAL IVPB ONE (04:45)
[2018-08-01] MEDS ORDERED: PANTOPRAZOLE SODIUM 80 MG in SODIUM CHLORIDE 100 ML IVPB SCH (05:00)
--- NOTE | 2018-08-01 05:04 | PDOC ---
Attending Attestation - Resident Resident Name: William Erazo - ED Attending Attestation I have performed the following: I have examined & evaluated the patient, The case was reviewed & discussed with the resident, I agree w/resident's findings & plan, Exceptions are as noted - Medical Decision Making 08/01/18 05:04 A portion of this note was documented by scribe services under my direction. I have reviewed the details of the note, within reason, and agree with the documentation with the following case summary and management plan written by me. Patient treated in the ED. Nursing notes are reviewed and incorporated into the medical decision-making. Vital signs reviewed. Peripheral IV access obtained by the nurse, laboratory studies are drawn and sent, reviewed and interpreted by myself. Vital Signs Temp Pulse Resp BP Pulse Ox 98.8 F 76 18 178/99 H 100 08/01/18 04:10 08/01/18 04:10 08/01/18 04:10 08/01/18 04:10 08/01/18 04:10 48 year old male with past medical history of type 2 diabetes, hypertension, GERD, left BKA returns for persistent epigastric pain. The patient was recently admitted several days ago for some her symptoms with epigastric pain and nausea and coffee ground emesis. At that time, the patient was admitted to the hospital evaluated by GI and the ICU. It was determined at that time that it was possibly not GI bleed and thought to be potentially secondary to gastroparesis. Endoscopy was deferred at that time. However, the patient left AGAINST MEDICAL ADVICE as reported that he had things at home he needed take care of. Was doing well until yesterday at 6 PM he developed similar episodes of epigastric pain and nausea and retching. Denies coffee ground emesis this time. Does report some clearish fluid. No fevers or chills. Differential includes gastritis versus gastroparesis versus less likely upper GI bleed. We'll attempt to control symptoms of pain. Obtain labs including lipase. Reassess. If the symptoms are persistent or uncontrolled, we'll need to consider admission to the hospital for further management. 08/01/18 06:53 CBC, BMP 08/01/18 05:42 08/01/18 05:42 CMP Sodium 140 mmol/L (136-145) 08/01/18 05:42 Potassium 3.0 mmol/L (3.5-5.1) L 08/01/18 05:42 Chloride 108 mmol/L (98-107) H 08/01/18 05:42 Carbon Dioxide 22 mmol/L (21-32) 08/01/18 05:42 Anion Gap 10 MMOL/L (8-16) 08/01/18 05:42 BUN 9 mg/dL (7-18) 08/01/18 05:42 Creatinine 1.5 mg/dL (0.55-1.3) H 08/01/18 05:42 Creat Clearance w eGFR 50.16 (>60) 08/01/18 05:42 Random Glucose 190 mg/dL (74-106) H 08/01/18 05:42 Calcium 8.2 mg/dL (8.5-10.1) L 08/01/18 05:42 Total Bilirubin 0.8 mg/dL (0.2-1) 08/01/18 05:42 AST 22 U/L (15-37) 08/01/18 05:42 ALT 19 U/L (13-61) 08/01/18 05:42 Alkaline Phosphatase 250 U/L (45-117) H 08/01/18 05:42 Creatine Kinase 62 IU/L (26-308) 08/01/18 05:42 Troponin I < 0.02 ng/ml (0.00-0.05) 08/01/18 05:42 Total Protein 6.9 g/dl (6.4-8.2) 08/01/18 05:42 Albumin 3.0 g/dl (3.4-5.0) L 08/01/18 05:42 Lipase 610 U/L (73-393) H 08/01/18 05:42 Lipase remains elevated. Pt continues to vomit. Will likely need to admit for gastroparesis vs. pancreatitis vs. UGIB. <Bruno Guevara - Last Filed: 08/01/18 06:53> - HPI HPI: 08/01/18 06:58 The patient is a 48 year old male with a significant PMH of diabetes, hypertension, hyperlipidemia, GERD, and BKA who presents to the emergency department with epigastric pain for several days. He states that he was at home yesterday watching tv when he felt an onset of his epigastric pain. The patient reports some associated coffee ground emesis and nausea with his epigastric pain. The patient reports that he was recently seen in the ED for similar evaluation. The patient denies any other symptoms or complaints. - Physicial Exam PE: 08/01/18 05:10 GENERAL: (+)uncomfortable appearing. Awake, alert, and fully oriented, in no acute distress HEAD: No signs of trauma EYES: PERRLA, EOMI, sclera anicteric, conjunctiva clear LUNGS: Breath sounds equal, clear to auscultation bilaterally. No wheezes, and no crackles HEART: Regular rate and rhythm, normal S1 and S2, no murmurs, rubs or gallops ABDOMEN: (+)mild tenderness to epigastric region. Soft,normoactive bowel sounds. No guarding, no rebound. No masses EXTREMITIES: (+)LEFT BKA Normal range of motion, no edema. No clubbing or cyanosis. No cords, erythema, or tenderness NEUROLOGICAL: Cranial nerves II through XII grossly intact. Normal speech, normal gait SKIN: Warm, Dry, normal turgor, no rashes or lesions noted. Documentation prepared by Erich Rivera, acting as medical pathology teacher for Bruno Guevara MD. <Erich Rivera - Last Filed: 08/01/18 06:58> Heart Score/ECG Review #1 ECG reviewed & interpreted by me at: 05:30 08/01/18 05:31 NSR 100, occasional PVC, QTC 487 msec, no std/nella <Bruon Guevara - Last Filed: 08/01/18 06:53>
[2018-08-01] MEDS ORDERED: METOCLOPRAMIDE HCL INJECTION 10 MG/2 ML VIAL ONE (05:30)
[2018-08-01] MEDS ORDERED: ACETAMINOPHEN INJECTION 100 ML IVPB ONE (05:30)
[2018-08-01] MEDS ORDERED: morphine SULFATE 4 MG/ML VIAL ONE ×2 (05:30→12:49)
[2018-08-01 05:53] LABS: BASO % 0.6 % (0-2.0); EOS % 1.1 % (0-4.5); HEMATOCRIT 32.7 % (35.4-49); HEMOGLOBIN 10.4 GM/dL (11.7-16.9); LYMPH % 9.6 % (8-40); MCH 26.5 pg (25.7-33.7); MCHC 31.8 g/dl (32.0-35.9); MEAN CELL VOLUME 83.3 fl (80-96); MEAN PLT VOLUME 7.9 fl (7.5-11.1); MONO % 3.9 % (3.8-10.2); NEUT % 84.8 % (42.8-82.8); PLATELET COUNT 307 K/MM3 (134-434); RBC 3.93 M/mm3 (4.00-5.60); RDW 17.3 % (11.9-15.9); WHITE BLOOD COUNT 10.4 K/mm3 (4.0-10.0)
[2018-08-01] MEDS ORDERED: PANTOPRAZOLE SODIUM 40 MG VIAL ONE (06:16)
[2018-08-01 06:19] LABS: ALK PHOS 250 U/L (45-117); ANION GAP 10 MMOL/L (8-16); BILIRUBIN,TOTAL 0.8 mg/dL (0.2-1); BLOOD UREA NITROGEN 9 mg/dL (7-18); CALCIUM 8.2 mg/dL (8.5-10.1); CHLORIDE 108 mmol/L (98-107); CO2 22 mmol/L (21-32); CREATININE 1.5 mg/dL (0.55-1.3); GLUCOSE,RANDOM 190 mg/dL (74-106); SGOT/AST 22 U/L (15-37); SGPT/ALT 19 U/L (13-61); SODIUM 140 mmol/L (136-145); TOT PROT 6.9 g/dl (6.4-8.2)
--- NOTE | 2018-08-01 07:19 | PDOC ---
*Physical Exam - Vital Signs Last Vital Signs Temp Pulse Resp BP Pulse Ox 98.8 F 76 18 178/99 H 100 08/01/18 04:10 08/01/18 04:10 08/01/18 04:10 08/01/18 04:10 08/01/18 04:10 ED Treatment Course - LABORATORY CBC & Chemistry Diagram: 08/01/18 05:42 08/01/18 05:42 - ADDITIONAL ORDERS Additional order review: Laboratory Results 08/01/18 08/01/18 05:42 05:42 Sodium 140 Potassium 3.0 L Chloride 108 H Carbon Dioxide 22 Anion Gap 10 BUN 9 Creatinine 1.5 H Creat Clearance w eGFR 50.16 Random Glucose 190 H Calcium 8.2 L Total Bilirubin 0.8 AST 22 ALT 19 Alkaline Phosphatase 250 H Creatine Kinase 62 Troponin I < 0.02 Total Protein 6.9 Albumin 3.0 L Lipase 610 H 08/01/18 05:42 RBC 3.93 L MCV 83.3 MCHC 31.8 L RDW 17.3 H MPV 7.9 Neutrophils % 84.8 H Lymphocytes % 9.6 D Monocytes % 3.9 Eosinophils % 1.1 Basophils % 0.6 - Medications Given in the ED: ED Medications Discontinued Medications Generic Name Dose Route Start Last Admin Trade Name Freq PRN Reason Stop Dose Admin Acetaminophen 1,000 mg 08/01/18 04:34 08/01/18 05:52 Ofirmev Injection - IVPB 08/01/18 04:35 1,000 mg ONCE ONE Administration Sodium Chloride 1,000 mls @ 1,000 mls/hr 08/01/18 04:35 08/01/18 05:52 Normal Saline - IV 08/01/18 05:34 1,000 mls/hr ASDIR STA Administration Metoclopramide HCl 10 mg 08/01/18 04:45 08/01/18 05:52 Reglan Injection - IVPB 08/01/18 04:46 10 mg ONCE ONE Administration Morphine Sulfate 4 mg 08/01/18 04:45 08/01/18 05:52 Morphine Injection - IVPUSH 08/01/18 04:46 4 mg ONCE ONE Administration Pantoprazole Sodium 40 mg 08/01/18 04:36 08/01/18 06:20 Protonix Iv IVPUSH 08/01/18 04:37 40 mg ONCE ONE Administration Medical Decision Making - Medical Decision Making I have assumed care of the patient from Dr. Erazo, who has discussed the clinical presentation, work-up, and ED course thus far. I have reviewed the patients medical record and ED course and agree with all aspects of care thus far. Hx of HTN, poorly controlled T2DM, s/p L BKA Patient pending admission for pancreatitis v GI bleed v gastroparesis CXR w/o evidence of PNA, PNX, or pleural effusion Lipase 610 Cr 1.5, at baseline Trop I neg Hypokalemia, K 3 Hgb 10.4 No leukocytosis 08/01/18 07:28 HTN -Will restart home meds Pt pending signout for admit 08/01/18 09:57 Patient signed out to Dr. Barth Called to patient's bedside, complaining of recurrence of severe, aching, non- radiating epigastric pain similar to what he presented with. Endorses N. Witnessed retching. Epigastric TTP w/o distension. -Morphine 4mg IV once -Zofran 4mg IV once 08/01/18 12:35 *DC/Admit/Observation/Transfer Diagnosis at time of Disposition: Gastroparesis due to DM Nausea & vomiting Qualifiers: Vomiting type: unspecified Vomiting Intractability: non-intractable Qualified Code(s): R11.2 - Nausea with vomiting, unspecified Pancreatitis Qualifiers: Chronicity: acute Pancreatitis type: unspecified pancreatitis type Acute pancreatitis complication: unspecified Qualified Code(s): K85.90 - Acute pancreatitis without necrosis or infection, unspecified GI bleed Qualifiers: GI bleed type/associated pathology: unspecified gastrointestinal hemorrhage type Qualified Code(s): K92.2 - Gastrointestinal hemorrhage, unspecified - Discharge Dispostion Condition at time of disposition: Fair Decision to Admit order: Yes - Referrals Referrals: Dallas Momin [Primary Care Provider] - - Patient Instructions - Post Discharge Activity
[2018-08-01] MEDS ORDERED: KCL 10 MEQ IVPB 20 MEQ/200 ML INFUS.BAG IVPB ONE (07:21)
[2018-08-01] MEDS: KCL 10 MEQ IVPB 10 MEQ/100 ML INFUS.BAG IVPB SCH ×2 (07:45→09:30)
[2018-08-01] MEDS ORDERED: LABETALOL HCL 100 MG TABLET (FP) PO ONE (09:56)
[2018-08-01] MEDS ORDERED: amLODIPine BESYLATE 10 MG TABLET (FP) PO ONE (09:56)
[2018-08-01] MEDS ORDERED: amLODIPine BESYLATE 5 MG TABLET (FP) ONE (10:18)
[2018-08-01] MEDS ORDERED: LABETALOL HCL 100 MG TABLET (FP) ONE (10:18)
--- NOTE | 2018-08-01 11:42 | HP ---
CHIEF COMPLAINT: PCP: HISTORY OF PRESENT ILLNESS: ER course was notable for: (1) (2) (3) Recent Travel: PAST MEDICAL HISTORY: PAST SURGICAL HISTORY: Social History: Smoking: Alcohol: Drugs: Family History: Allergies No Known Allergies Allergy (Verified 08/01/18 04:45) HOME MEDICATIONS: Home Medications Medication Instructions Recorded Pantoprazole Sodium [Protonix -] 20 mg PO DAILY 05/29/18 Amlodipine Besylate [Norvasc -] 10 mg PO DAILY #30 tablet 06/06/18 Amoxicillin/Potassium Clav 1 each PO BID #20 tablet 06/06/18 [Augmentin 500-125 Tablet] Insulin (Levemir) [Levemir Vial] 10 units SQ AM #30 syringe 06/06/18 Labetalol HCl [Normodyne -] 100 mg PO BID #60 tablet 06/06/18 REVIEW OF SYSTEMS CONSTITUTIONAL: Absent: fever, chills, diaphoresis, generalized weakness, malaise, loss of appetite, weight change HEENT: Absent: rhinorrhea, nasal congestion, throat pain, throat swelling, difficulty swallowing, mouth swelling, ear pain, eye pain, visual changes CARDIOVASCULAR: Absent: chest pain, syncope, palpitations, irregular heart rate, lightheadedness , peripheral edema RESPIRATORY: Absent: cough, shortness of breath, dyspnea with exertion, orthopnea, wheezing, stridor, hemoptysis GASTROINTESTINAL: Absent: abdominal pain, abdominal distension, nausea, vomiting, diarrhea, constipation, melena, hematochezia GENITOURINARY: Absent: dysuria, frequency, urgency, hesitancy, hematuria, flank pain, genital pain MUSCULOSKELETAL: Absent: myalgia, arthralgia, joint swelling, back pain, neck pain SKIN: Absent: rash, itching, pallor HEMATOLOGIC/IMMUNOLOGIC: Absent: easy bleeding, easy bruising, lymphadenopathy, frequent infections ENDOCRINE: Absent: unexplained weight gain, unexplained weight loss, heat intolerance, cold intolerance NEUROLOGIC: Absent: headache, focal weakness or paresthesias, dizziness, unsteady gait, seizure, mental status changes, bladder or bowel incontinence PSYCHIATRIC: Absent: anxiety, depression, suicidal or homicidal ideation, hallucinations. PHYSICAL EXAMINATION Vital Signs - 24 hr 08/01/18 08/01/18 08/01/18 04:10 07:15 09:58 Temperature 98.8 F 98.5 F Pulse Rate 76 Pulse Rate [ 98 H Right] Respiratory 18 18 Rate Blood Pressure 178/99 H Blood Pressure 188/113 H 179/99 H [Left Arm] O2 Sat by Pulse 100 97 Oximetry (%) GENERAL: Awake, alert, and fully oriented, in no acute distress. HEAD: Normal with no signs of trauma. EYES: Pupils equal, round and reactive to light, extraocular movements intact, sclera anicteric, conjunctiva clear. No lid lag. EARS, NOSE, THROAT: Ears normal, nares patent, oropharynx clear without exudates. Moist mucous membranes. NECK: Normal range of motion, supple without lymphadenopathy, JVD, or masses. LUNGS: Breath sounds equal, clear to auscultation bilaterally. No wheezes, and no crackles. No accessory muscle use. HEART: Regular rate and rhythm, normal S1 and S2 without murmur, rub or gallop. ABDOMEN: Soft, nontender, not distended, normoactive bowel sounds, no guarding, no rebound, no masses. No hepatomegaly or splenomegaly. MUSCULOSKELETAL: Normal range of motion at all joints. No bony deformities or tenderness. No CVA tenderness. UPPER EXTREMITIES: 2+ pulses, warm, well-perfused. No cyanosis. No clubbing. No peripheral edema. LOWER EXTREMITIES: 2+ pulses, warm, well-perfused. No calf tenderness. No peripheral edema. NEUROLOGICAL: Cranial nerves II-XII intact. Normal speech. Normal gait. PSYCHIATRIC: Cooperative. Good eye contact. Appropriate mood and affect. SKIN: Warm, dry, normal turgor, no rashes or lesions noted, normal capillary refill. Laboratory Results - last 24 hr 08/01/18 08/01/18 08/01/18 05:42 05:42 05:42 WBC 10.4 H RBC 3.93 L Hgb 10.4 L Hct 32.7 L D MCV 83.3 MCH 26.5 MCHC 31.8 L RDW 17.3 H Plt Count 307 MPV 7.9 Absolute Neuts (auto) 8.8 H Neutrophils % 84.8 H Lymphocytes % 9.6 D Monocytes % 3.9 Eosinophils % 1.1 Basophils % 0.6 Nucleated RBC % 0 Sodium 140 Potassium 3.0 L Chloride 108 H Carbon Dioxide 22 Anion Gap 10 BUN 9 Creatinine 1.5 H Creat Clearance w eGFR 50.16 Random Glucose 190 H Lactic Acid Calcium 8.2 L Total Bilirubin 0.8 AST 22 ALT 19 Alkaline Phosphatase 250 H Creatine Kinase 62 Troponin I < 0.02 Total Protein 6.9 Albumin 3.0 L Lipase 610 H 08/01/18 07:26 WBC RBC Hgb Hct MCV MCH MCHC RDW Plt Count MPV Absolute Neuts (auto) Neutrophils % Lymphocytes % Monocytes % Eosinophils % Basophils % Nucleated RBC % Sodium Potassium Chloride Carbon Dioxide Anion Gap BUN Creatinine Creat Clearance w eGFR Random Glucose Lactic Acid 0.9 Calcium Total Bilirubin AST ALT Alkaline Phosphatase Creatine Kinase Troponin I Total Protein Albumin Lipase CBC, BMP 08/01/18 05:42 08/01/18 05:42 ASSESSMENT/PLAN:
[2018-08-01] MEDS ORDERED: ONDANSETRON 4 MG/2 ML VIAL IVPUSH ONE (12:35)
[2018-08-01] MEDS ORDERED: ONDANSETRON 4 MG/2 ML VIAL ONE (12:49)
--- NOTE | 2018-08-01 15:34 | EKG ---
Test Reason : Blood Pressure : / mmHG Vent. Rate : 094 BPM Atrial Rate : 094 BPM P-R Int : 138 ms QRS Dur : 090 ms QT Int : 408 ms P-R-T Axes : 010 -11 -02 degrees QTc Int : 510 ms SINUS RHYTHM WITH PREMATURE ATRIAL COMPLEXES WITH ABERRANT CONDUCTION PROLONGED QT ABNORMAL ECG WHEN COMPARED WITH ECG OF 01-AUG-2018 05:29, NO SIGNIFICANT CHANGE WAS FOUND Confirmed by TORSTEN JENKINS, BESS ([id number]) on 08/01/2018 3:34:03 PM Referred By: Confirmed By:BESS SARMIENTO MD
--- NOTE | 2018-08-01 15:38 | EKG ---
Test Reason : Blood Pressure : / mmHG Vent. Rate : 100 BPM Atrial Rate : 100 BPM P-R Int : 148 ms QRS Dur : 088 ms QT Int : 378 ms P-R-T Axes : 021 -15 014 degrees QTc Int : 487 ms SINUS RHYTHM WITH PREMATURE ATRIAL COMPLEXES WITH ABERRANT CONDUCTION PROLONGED QT ABNORMAL ECG WHEN COMPARED WITH ECG OF 27-JUL-2018 08:39, ABERRANT CONDUCTION IS NOW PRESENT Confirmed by TORSTEN JENKINS, BESS ([id number]) on 08/01/2018 3:38:42 PM Referred By: Confirmed By:BESS SARMIENTO MD
--- NOTE | 2018-08-01 17:32 | PN ---
Progress Note (short form) - Note Progress Note: Called to eval patient. Patient is a patient of Dr. Michelle's. Advised that they call his service for further evaluation.
[2018-08-01] MEDS ORDERED: MORPHINE SULFATE 2 MG/ML VIAL IVPUSH PRN (17:44)
[2018-08-01] MEDS: DEXTROSE 5%-0.45% SALINE 1,000 ML IV SCH (18:00)
[2018-08-01] MEDS ORDERED: POTASSIUM CHLORIDE TABS 20 MEQ TABLET.ER (FP) PO ONE (18:00)
[2018-08-01 18:19] VITALS: BMI 31.8
[2018-08-01] MEDS: ONDANSETRON 4 MG/2 ML VIAL IVPUSH PRN (18:29)
--- NOTE | 2018-08-01 19:36 | HP ---
Admitting History and Physical - Admission History of Present Illness: Pt is a 48 yo male w/ PMH significant for IDDM (noncompliant w/ medications), GERD, HTN, left BKA, and recent admission 07/25 for coffee ground emesis ( patient left AMA from hospital 07/28 when he was reportedly feeling better) who presents for evaluation of 1 day history of epigastric pain and vomiting. Patient had previously been evaluated by GI and ICU and symptoms thought to be due to gastroparesis. EGD was differed as one was performed w/in the last 6 month. Patient was feeling well after leaving AMA until approximately 6pm tonight when he began experiencing significant nausea with retching productive of clear liquid with concurrent epigastric pain and both L&R back and chest pain. - Past Medical History Cardiovascular: Yes: HTN, Hyperlipdemia Gastrointestinal: Yes: GERD Heme/Onc: Yes: Anemia Infectious Disease: Yes: MRSA (several years ago) Musculoskeletal: Yes: Other (left thigh pain) Endocrine: Yes: Diabetes Mellitus Dermatology: Yes: Cellulitis (mrsa) - Past Surgical History Past Surgical History: Yes: Amputation (left BKA) - Smoking History Smoking history: Former smoker Have you smoked in the past 12 months: No Aproximately how many cigarettes per day: 0 If you are a former smoker, when did you quit?: 10 years ago - Alcohol/Substance Use Hx Alcohol Use: No History of Substance Use: reports: Cocaine (intranasal and crack coaine abuse in past) - Social History ADL: Independent History of Recent Travel: No Home Medications - Allergies Allergies/Adverse Reactions: Allergies Allergy/AdvReac Type Severity Reaction Status Date / Time No Known Allergies Allergy Verified 08/01/18 04:45 - Home Medications Home Medications: Ambulatory Orders Insulin (Levemir) [Levemir Vial] 15 units SQ AM 08/01/18 Metoclopramide HCl [Reglan] 5 mg PO TID 08/01/18 Pantoprazole Sodium [Protonix] 40 mg PO DAILY 08/01/18 Ramipril [Altace] 2.5 mg PO DAILY 08/01/18 Simvastatin [Zocor -] 5 mg PO DAILY 08/01/18 Family Disease History - Family Disease History Family History: Unremarkable Family Disease History: Diabetes: Father Review of Systems - Review of Systems Constitutional: reports: Loss of Appetite, Weakness Neck: reports: No Symptoms Cardiovascular: reports: No Symptoms Gastrointestinal: reports: Abdominal Pain, Nausea, Vomiting Genitourinary: reports: No Symptoms Physical Examination Vital Signs: Vital Signs Temperature 98.2 F 08/01/18 17:17 Pulse Rate 90 08/01/18 17:17 Respiratory Rate 18 08/01/18 17:17 Blood Pressure 162/93 08/01/18 17:17 O2 Sat by Pulse Oximetry (%) 97 08/01/18 16:47 Constitutional: Yes: Well Nourished Neck: Yes: WNL, Supple Cardiovascular: Yes: WNL, Regular Rate and Rhythm Respiratory: Yes: WNL, Regular, CTA Bilaterally Gastrointestinal: Yes: Abdomen, Obese, Other ((+) generalized tenderness (-) guarding/rebond) Extremities: Yes: Other (LT BKA) Edema: No Neurological: Yes: WNL, Alert, Oriented ...Motor Strength: WNL Labs: CBC, BMP 08/01/18 05:42 08/01/18 05:42 Problem List - Problems (1) Abdominal pain Assessment/Plan: ?Gastroparesis vs GI bleed Monitor H/H Cont NPO Cont IVF GI consult Code(s): R10.9 - UNSPECIFIED ABDOMINAL PAIN (2) Diabetes Assessment/Plan: Cont sliding scale w/ coverage Code(s): E11.9 - TYPE 2 DIABETES MELLITUS WITHOUT COMPLICATIONS (3) HTN (hypertension) Assessment/Plan: BP stable Code(s): I10 - ESSENTIAL (PRIMARY) HYPERTENSION (4) Nausea & vomiting Code(s): R11.2 - NAUSEA WITH VOMITING, UNSPECIFIED Qualifiers: Vomiting type: unspecified Vomiting Intractability: non-intractable Qualified Code(s): R11.2 - Nausea with vomiting, unspecified
[2018-08-01] MEDS ORDERED: LABETALOL HCL 100 MG TABLET (FP) PO SCH (22:00)
[2018-08-01] MEDS: MORPHINE SULFATE 8 MG/ML VIAL IVPUSH PRN (22:01)
[2018-08-01] MEDS: INSULIN SLIDING SCALE (NOVOLOG) 1 VIAL SQ SCH ×2 (22:02→23:48)
[2018-08-02] MEDS: INSULIN SLIDING SCALE (NOVOLOG) 1 VIAL SQ SCH ×5 (00:02→21:50)
[2018-08-02] MEDS: ONDANSETRON 4 MG/2 ML VIAL IVPUSH PRN (00:22)
[2018-08-02] MEDS ORDERED: ASPIRIN 81 MG CHEWABLE TABLETS PO ONE (00:26)
[2018-08-02] MEDS: MORPHINE SULFATE 8 MG/ML VIAL IVPUSH PRN (05:08)
[2018-08-02] MEDS: DEXTROSE 5%-0.45% SALINE 1,000 ML IV SCH ×2 (05:11→17:31)
[2018-08-02 08:21] LABS: URINE APPEARANCE CLEAR; URINE BILIRUBIN NEGATIVE (<2.0 mg/dL); URINE COLOR YELLOW; URINE GLUCOSE (UA) 2+ (NEGATIVE); URINE KETONE TRACE (NEGATIVE); URINE LEUK ESTERASE NEGATIVE (NEGATIVE); URINE NITRITE NEGATIVE (NEGATIVE); URINE PROTEIN 3+ (NEGATIVE); URINE UROBILINOGEN NEGATIVE mg/dL (0.2-1.0)
[2018-08-02 08:39] LABS: URINE HYALINE CAST 1 /lpf; URINE MUCUS RARE
[2018-08-02 09:13] LABS: ALBUMIN 2.4 g/dl (3.4-5.0); ALK PHOS 200 U/L (45-117); AMYLASE 50 U/L (25-115); ANION GAP 7 MMOL/L (8-16); BILIRUBIN,TOTAL 0.6 mg/dL (0.2-1); BLOOD UREA NITROGEN 9 mg/dL (7-18); CALCIUM 7.9 mg/dL (8.5-10.1); CHLORIDE 112 mmol/L (98-107); CO2 23 mmol/L (21-32); CREATININE 1.4 mg/dL (0.55-1.3); GLUCOSE,RANDOM 198 mg/dL (74-106); LIPASE 415 U/L (73-393); POTASSIUM 3.1 mmol/L (3.5-5.1); SGOT/AST 11 U/L (15-37); SGPT/ALT 13 U/L (13-61); SODIUM 142 mmol/L (136-145); TOT PROT 5.7 g/dl (6.4-8.2)
[2018-08-02] MEDS ORDERED: morphine SULFATE 4 MG/ML VIAL IVPUSH PRN (09:19)
[2018-08-02] MEDS ORDERED: METOCLOPRAMIDE HCL INJECTION 10 MG/2 ML VIAL IVPB PRN (09:43)
[2018-08-02] MEDS ORDERED: MAGNESIUM HYDROX 2400MG/30ML ORAL SUSPENSION 30 ML CUP PO PRN (09:44)
[2018-08-02] MEDS: PANTOPRAZOLE SODIUM 40 MG VIAL IVPUSH SCH (09:44)
[2018-08-02] MEDS: LABETALOL HCL 100 MG TABLET (FP) PO SCH ×3 (09:50→21:51)
--- NOTE | 2018-08-02 11:33 | CON.CARD ---
Cardiology Consult (text) - Consultation Consultation Note: Consult Dictated IMP: Epigastric pain, nausea Hx Peptic Ulcer Disease Prior GI bleeds Suspected chronic pancreatitis DM PAD s/p LLE BKA REC: Doubt current sx cardiac as enzymes are negative and ECG is without acute changes. -Echo for EF assessment -GI evaluation
--- NOTE | 2018-08-02 12:26 | CONS ---
DATE OF CONSULTATION: 08/02/2018 CARDIOLOGY CONSULTATION REQUESTED BY: Zaria Barth MD REASON FOR CONSULTATION: Epigastric pain. A 48-year-old male with past medical history of insulin-dependent diabetes, medication nonadherence, peripheral arterial disease status post left BKA, GERD, history of peptic ulcer disease and gastritis, hypertension, recently admitted on July 25 for coffee-ground emesis and admission for which he left AMA on July 28. He presented to the ER again for 24 hours of epigastric pain, nausea, and vomiting. He denies any recurrent hematemesis. He has previously been evaluated by GI and patient reports he was diagnosed with gastroparesis and peptic ulcer disease. He denies chest pain or shortness of breath. He does not know when he last had a stress test. His cardiac enzymes are negative x2 sets. His past medical history is as above and includes also hypertension. ALLERGIES: None. CURRENT MEDICATIONS: Include D5 half-normal saline at 75 mL an hour, NovoLog sliding scale, labetalol 100 mg p.o. b.i.d., Reglan 10 mg IV q.8 p.r.n., morphine sulfate 4 mg IV q.4 p.r.n., and Protonix 40 mg IV daily. FAMILY HISTORY: Noncontributory. SOCIAL HISTORY: Significant for former smoking and previous drug abuse with cocaine. Patient states he has not used drugs in the last 3 years. PHYSICAL EXAMINATION: Vital Signs: He is afebrile, temperature 98.8, pulse 81, initial blood pressure was 180/100, now 143/78, O2 saturation 99 on room air. General: He is anicteric. Neck: No bruits. Heart: S1, 2, regular, no murmurs. Chest: Clear. Abdomen: There is mild epigastric tenderness but no rebound or guarding. Lungs: Clear bilaterally. Extremities: The left lower extremity has a [id number]-lypy amputation. The right lower extremity has no edema. LABORATORIES: White count 10.4, hematocrit 32.7, platelets 307. Sodium 142, potassium 3.1, which needs repletion, creatinine 1.4, total bilirubin is 0.6, AST 11, ALT 13, alkaline phosphatase 200, CK 35, 30, and troponin is negative x2 sets. Albumin is 2.4. Lipase is 415. Abdomen CT was performed on August 01 showing no evidence of pancreatitis or acute pathology. His ECG shows normal sinus rhythm at 91 beats per minute with no acute ST changes, prolonged qT. IMPRESSION: 1. Epigastric pain. 2. Nausea. 3. History of peptic ulcer disease by patient report. 4. Prior gastrointestinal bleed. 5. Suspected chronic pancreatitis. 6. Diabetes. 7. Peripheral arterial disease. RECOMMENDATIONS: I doubt that the current symptoms of epigastric pain, nausea, vomiting, and mild epigastric tenderness are cardiac in nature as his enzymes are negative and his ECG is without acute ischemic changes. His symptoms are likely due to GI pathology, possibly GERD/gastritis, possible peptic ulcer disease, and possible component of chronic pancreatitis, although the etiology is not perfectly clear at this time. 1. An echo will be obtained for EF assessment, rule out pericardial disease, and for valvular assessment. 2. GI evaluation for further workup of above differential. 3. Will follow. 4. We will replete potassium. Thank you for the consultation. DUKE WISEMAN M.D. [id number]
[2018-08-02] MEDS: KCL 10 MEQ IVPB 10 MEQ/100 ML INFUS.BAG IVPB SCH ×2 (12:54→13:51)
--- NOTE | 2018-08-02 15:04 | PN ---
Progress Note, Physician History of Present Illness: Pt still feeling nausea w/ minmal abdominal pain - Current Medication List Current Medications: Active Medications Dextrose/Sodium Chloride (D5-1/2ns -) 1,000 mls @ 75 mls/hr IV ASDIR [facility] Last Admin: 08/02/18 05:11 Dose: 75 mls/hr Insulin Aspart (Novolog Vial Sliding Scale -) 1 vial SQ ACHS [facility]; Protocol Last Admin: 08/02/18 11:39 Dose: Not Given Labetalol HCl (Normodyne -) 100 mg PO BID [facility] Last Admin: 08/02/18 09:50 Dose: Not Given Magnesium Hydroxide (Milk Of Magnesia -) 30 ml PO Q8H PRN PRN Reason: CONSTIPATION Last Admin: 08/02/18 12:54 Dose: 30 ml Metoclopramide HCl (Reglan Injection -) 10 mg IVPB Q8H PRN PRN Reason: N/V Last Admin: 08/02/18 11:34 Dose: 10 mg Morphine Sulfate (Morphine Sulfate) 4 mg IVPUSH Q4H PRN PRN Reason: PAIN LEVEL 6-10 Last Admin: 08/02/18 09:44 Dose: 4 mg Pantoprazole Sodium (Protonix Iv) 40 mg IVPUSH DAILY [facility] Last Admin: 08/02/18 09:44 Dose: 40 mg - Objective Vital Signs: Vital Signs Temperature 98.5 F 08/02/18 14:45 Pulse Rate 82 08/02/18 14:45 Respiratory Rate 17 08/02/18 14:45 Blood Pressure 129/73 08/02/18 14:45 O2 Sat by Pulse Oximetry (%) 98 08/02/18 09:00 Constitutional: Yes: Well Nourished, Obese Neck: Yes: WNL, Supple Cardiovascular: Yes: WNL, Regular Rate and Rhythm Respiratory: Yes: WNL, Regular, CTA Bilaterally Gastrointestinal: Yes: WNL, Normal Bowel Sounds, Soft, Abdomen, Obese Extremities: Yes: Other (LT BKA) Labs: CBC, BMP 08/01/18 05:42 08/02/18 06:00 Problem List - Problems (1) Abdominal pain Assessment/Plan: Due to Gastroparesis Advance diet and monitor Will transfer pt to tele to monitor QT interavl while on reglan Cont IVF Code(s): R10.9 - UNSPECIFIED ABDOMINAL PAIN (2) Diabetes Assessment/Plan: Cont sliding scale w/ coverage Code(s): E11.9 - TYPE 2 DIABETES MELLITUS WITHOUT COMPLICATIONS (3) HTN (hypertension) Assessment/Plan: BP stable Cont labetalol Code(s): I10 - ESSENTIAL (PRIMARY) HYPERTENSION (4) Nausea & vomiting Assessment/Plan: Replace K+ Code(s): R11.2 - NAUSEA WITH VOMITING, UNSPECIFIED Qualifiers: Vomiting type: unspecified Vomiting Intractability: non-intractable Qualified Code(s): R11.2 - Nausea with vomiting, unspecified
[2018-08-02] MEDS ORDERED: KCL 10 MEQ IVPB 10 MEQ/100 ML INFUS.BAG IVPB SCH (15:15)
--- NOTE | 2018-08-02 16:52 | CON.GI ---
Consult Consult Specialty:: GI Referred by:: Gabriel Andrade/md Tab - History of Present Illness History of Present Illness: 48 y/o male with PMH of Peptic ulcer disease has multiple similar admissions due to intractable nausea, vomiting and abdominal pain. He takes oxycodone for knee pain. Episodes of nausea and vomiting seem to be exacerbated by opiod use. He has history of prolonged qt interval. He has received Reglan and Zofran in the past. This afternoon he tolerated glass of water. - Past Medical History Cardio/Vascular: Yes: HTN, Hyperlipdemia Gastrointestinal: Yes: GERD Infectious Disease: Yes: MRSA (several years ago) Musculoskeletal: Yes: Other (left thigh pain) Endocrine: Yes: Diabetes Mellitus Dermatology: Yes: Cellulitis (mrsa) Additional Medical History: ? right knee fracture - Past Surgical History Past Surgical History: Yes: Amputation (left BKA) - Alcohol/Substance Use Hx Alcohol Use: No History of Substance Use: reports: Cocaine (intranasal and crack coaine abuse in past) - Smoking History Smoking history: Former smoker Have you smoked in the past 12 months: No Aproximately how many cigarettes per day: 0 If you are a former smoker, when did you quit?: 10 years ago - Social History Usual Living Arrangement: With Spouse ADL: Independent History of Recent Travel: No Home Medications - Allergies Allergies/Adverse Reactions: Allergies Allergy/AdvReac Type Severity Reaction Status Date / Time No Known Allergies Allergy Verified 08/01/18 04:45 - Home Medications Home Medications: Ambulatory Orders Insulin (Levemir) [Levemir Vial] 15 units SQ AM 08/01/18 Metoclopramide HCl [Reglan] 5 mg PO TID 08/01/18 Pantoprazole Sodium [Protonix] 40 mg PO DAILY 08/01/18 Ramipril [Altace] 2.5 mg PO DAILY 08/01/18 Simvastatin [Zocor -] 5 mg PO DAILY 08/01/18 Family Disease History - Family Disease History Family Disease History: Diabetes: Father Review of Systems - Review of Systems Constitutional: reports: No Symptoms Eyes: reports: No Symptoms HENT: reports: No Symptoms Neck: reports: No Symptoms Cardiovascular: reports: Chest Pain. denies: Palpitations, Shortness of Breath Respiratory: reports: No Symptoms Gastrointestinal: reports: Abdominal Pain, Nausea, Vomiting. denies: Constipation, Diarrhea Genitourinary: reports: No Symptoms Physical Exam-GI Vital Signs: Vital Signs Temperature 98.5 F 08/02/18 14:45 Pulse Rate 82 08/02/18 14:45 Respiratory Rate 17 08/02/18 14:45 Blood Pressure 129/73 08/02/18 14:45 O2 Sat by Pulse Oximetry (%) 98 08/02/18 09:00 Constitutional: Yes: Obese Eyes: Yes: Conjunctiva Clear HENT: Yes: Atraumatic Neck: Yes: Trachea Midline Cardiovascular: Yes: Regular Rate and Rhythm Respiratory: Yes: CTA Bilaterally ...Palpate: Yes: Soft, Tenderness, Epigastium. No: Firm/Rigid, Guarding, Hepatomegaly, Mass, Pulsatile Mass, Splenomegaly Extremities: Yes: Amputation (--left) Labs: CBC, BMP 08/01/18 05:42 08/02/18 06:00 Problem List - Problems (1) Intractable nausea and vomiting Assessment/Plan: secondary to gastroparesis and chronic opiod use R> Reglan 5mg 30 min ac if ok with Cardiology left message to Dr Katz Pantoprazole 40mg bid advance diet to soft diet as patient has no dentures Code(s): R11.2 - NAUSEA WITH VOMITING, UNSPECIFIED
[2018-08-02 19:53] LABS: ANION GAP 11 MMOL/L (8-16); BLOOD UREA NITROGEN 8 mg/dL (7-18); CALCIUM 7.4 mg/dL (8.5-10.1); CHLORIDE 109 mmol/L (98-107); CO2 20 mmol/L (21-32); CREATININE 1.5 mg/dL (0.55-1.3); GLUCOSE,RANDOM 207 mg/dL (74-106); POTASSIUM 3.1 mmol/L (3.5-5.1); SODIUM 140 mmol/L (136-145)
[2018-08-02] MEDS ORDERED: MORPHINE SULFATE 2 MG/ML VIAL IVPUSH PRN (23:43)
[2018-08-03] MEDS: INSULIN SLIDING SCALE (NOVOLOG) 1 VIAL SQ SCH ×4 (06:52→22:05)
[2018-08-03 07:00] LABS: BASO % 0.4 % (0-2.0); EOS % 5.5 % (0-4.5); HEMATOCRIT 26.8 % (35.4-49); HEMOGLOBIN 8.7 GM/dL (11.7-16.9); LYMPH % 15.6 % (8-40); MCHC 32.3 g/dl (32.0-35.9); MEAN CELL VOLUME 83.5 fl (80-96); MEAN PLT VOLUME 8.1 fl (7.5-11.1); MONO % 6.4 % (3.8-10.2); NEUT % 72.1 % (42.8-82.8); PLATELET COUNT 245 K/MM3 (134-434); RBC 3.22 M/mm3 (4.00-5.60); RDW 17.3 % (11.9-15.9); WHITE BLOOD COUNT 8.5 K/mm3 (4.0-10.0)
[2018-08-03] MEDS ORDERED: METOCLOPRAMIDE HCL INJECTION 10 MG/2 ML VIAL IVPUSH ONE (07:00)
[2018-08-03] MEDS: METOCLOPRAMIDE HCL 10 MG TABLET (FP) PO SCH ×3 (07:00→17:09)
[2018-08-03 07:30] LABS: ALBUMIN 2.3 g/dl (3.4-5.0); ALK PHOS 201 U/L (45-117); ANION GAP 8 MMOL/L (8-16); BILIRUBIN,TOTAL 0.7 mg/dL (0.2-1); BLOOD UREA NITROGEN 6 mg/dL (7-18); CALCIUM 7.7 mg/dL (8.5-10.1); CHLORIDE 108 mmol/L (98-107); CO2 23 mmol/L (21-32); CREATININE 1.4 mg/dL (0.55-1.3); GLUCOSE,RANDOM 155 mg/dL (74-106); POTASSIUM 3.1 mmol/L (3.5-5.1); SGOT/AST 13 U/L (15-37); SGPT/ALT 12 U/L (13-61); SODIUM 138 mmol/L (136-145); TOT PROT 5.4 g/dl (6.4-8.2)
--- NOTE | 2018-08-03 08:19 | PN ---
Progress Note, Physician Chief Complaint: No CP TELE: NSR, rare PVC Moved to tele due to prolonged QT - Current Medication List Current Medications: Active Medications Dextrose/Sodium Chloride (D5-1/2ns -) 1,000 mls @ 75 mls/hr IV ASDIR [facility] Last Admin: 08/02/18 17:31 Dose: Not Given Insulin Aspart (Novolog Vial Sliding Scale -) 1 vial SQ ACHS [facility]; Protocol Last Admin: 08/03/18 06:52 Dose: Not Given Labetalol HCl (Normodyne -) 100 mg PO BID [facility] Last Admin: 08/02/18 21:51 Dose: 100 mg Magnesium Hydroxide (Milk Of Magnesia -) 30 ml PO Q8H PRN PRN Reason: CONSTIPATION Last Admin: 08/02/18 12:54 Dose: 30 ml Metoclopramide HCl (Reglan -) 5 mg PO TIDAC [facility] Last Admin: 08/03/18 07:00 Dose: Not Given Morphine Sulfate (Morphine Sulfate) 2 mg IVPUSH Q6H PRN PRN Reason: PAIN LEVEL 6-10 Last Admin: 08/03/18 05:42 Dose: 2 mg Pantoprazole Sodium (Protonix Iv) 40 mg IVPUSH DAILY [facility] Last Admin: 08/02/18 09:44 Dose: 40 mg - Objective Vital Signs: Vital Signs Temperature 98.4 F 08/03/18 06:56 Pulse Rate 89 08/03/18 06:56 Respiratory Rate 18 08/03/18 06:56 Blood Pressure 136/80 08/03/18 06:56 O2 Sat by Pulse Oximetry (%) 98 08/02/18 21:00 Constitutional: Yes: No Distress, Calm Eyes: Yes: Conjunctiva Clear Cardiovascular: Yes: Regular Rate and Rhythm Respiratory: Yes: CTA Bilaterally Gastrointestinal: Yes: Soft Edema: No Labs: CBC, BMP 08/03/18 06:00 08/03/18 06:00 Laboratory Tests 08/03/18 08/03/18 06:00 06:00 WBC 8.5 Hgb 8.7 L Plt Count 245 Sodium 138 Potassium 3.1 L BUN 6 L Creatinine 1.4 H Laboratory Tests 08/01/18 08/02/18 08/02/18 05:42 00:30 06:00 Troponin I < 0.02 < 0.02 < 0.02 11/22/18 17:00 Troponin I < 0.02 - ....Imaging EKG: Image Reviewed Assessment/Plan IMP: Epigastric pain, nausea Hx Peptic Ulcer Disease Prior GI bleeds Suspected chronic pancreatitis DM PAD s/p LLE BKA REC: Doubt current sx cardiac as enzymes are negative and ECG is without acute changes. -Echo for EF assessment Watch QTc, tele Stress MPI prior to discharge or soon after as outpatient if patient is compliant with f/u
[2018-08-03] MEDS ORDERED: PT OWN MED DRAWER 7, Y5N ONE (09:01)
[2018-08-03] MEDS: PANTOPRAZOLE SODIUM 40 MG VIAL IVPUSH SCH (09:13)
[2018-08-03] MEDS: LABETALOL HCL 100 MG TABLET (FP) PO SCH ×2 (09:13→22:05)
[2018-08-03] MEDS: KCL 10 MEQ IVPB 10 MEQ/100 ML INFUS.BAG IVPB SCH ×2 (09:13→10:42)
--- NOTE | 2018-08-03 10:10 | EKG ---
Test Reason : Blood Pressure : / mmHG Vent. Rate : 091 BPM Atrial Rate : 091 BPM P-R Int : 144 ms QRS Dur : 092 ms QT Int : 422 ms P-R-T Axes : -01 -13 007 degrees QTc Int : 519 ms SINUS RHYTHM WITH FREQUENT PREMATURE VENTRICULAR COMPLEXES PROLONGED QT ABNORMAL ECG WHEN COMPARED WITH ECG OF 01-AUG-2018 12:28, PREMATURE VENTRICULAR COMPLEXES ARE NOW PRESENT ABERRANT CONDUCTION IS NO LONGER PRESENT Confirmed by DUKE WISEMAN MD ([id number]) on 08/03/2018 10:09:46 AM Referred By: Confirmed By:DUKE WISEMAN MD
[2018-08-03] MEDS ORDERED: KCL 10 MEQ IVPB 10 MEQ/100 ML INFUS.BAG IVPB SCH (13:45)
--- NOTE | 2018-08-03 15:56 | ECHO ---
Name: MAYO HURLEY Exam:Adult Echocardiogram Study Date: 08/03/2018 01:11 PM Age: 48 yrs Reason For Study: CHEST PAIN Height: 70 in Weight: 222 lb BSA: 2.2 m2 MMode/2D Measurements & Calculations IVSd: 0.96 cm Ao root diam: 2.9 cm LVIDd: 5.9 cm LA dimension: 4.0 cm LVIDs: 4.4 cm LVPWd: 0.88 cm EDV(Teich): 170.7 ml ESV(Teich): 85.4 ml Doppler Measurements & Calculations MV E max viviana: 69.1 cm/sec TR max viviana: 146.6 cm/sec MV A max viviana: 86.4 cm/sec TR max P.6 mmHg MV E/A: 0.80 MV dec time: 0.18 sec Med Peak E' Viviana: 4.2 cm/sec Med E/e': 16.5 Lat Peak E' Viviana: 5.4 cm/sec Lat E/e': 12.9 Left Ventricle Left ventricular systolic function is normal. Ejection Fraction = 50-55%. Right Ventricle The right ventricle is normal in size and function. Atria The left atrium is borderline dilated. Right atrial size is normal. Mitral Valve The mitral valve is normal in structure and function. There is no mitral valve stenosis. There is tra ce mitral regurgitation. Tricuspid Valve The tricuspid valve is normal in structure and function. There is mild tricuspid regurgitation. Right ventricular systolic pressure is normal. Aortic Valve The aortic valve is trileaflet. No hemodynamically significant valvular aortic stenosis. No aortic regurgitation is present. Pulmonic Valve The pulmonic valve is not well seen, but is grossly normal. There is no pulmonic valvular stenosis. T here is no pulmonic valvular regurgitation. Great Vessels The aortic root is normal size. Pericardium/Pleura There is no pericardial effusion. Interpretation Summary Left ventricular systolic function is normal. Ejection Fraction = 50-55%. The right ventricle is normal in size and function. The left atrium is borderline dilated. There is mild tricuspid regurgitation. Right ventricular systolic pressure is normal. There is no pericardial effusion. MD Parham *Sterling 08/03/2018 03:56 PM
--- NOTE | 2018-08-03 17:12 | PN ---
GI Progress Note Subjective: no nausea and no vomiting, on Reglan 5mg tid, no alarms reported by telemetry - Objective Vital Signs: Vital Signs Temperature 98.2 F 08/03/18 14:00 Pulse Rate 86 08/03/18 14:00 Respiratory Rate 18 08/03/18 14:00 Blood Pressure 146/74 08/03/18 14:00 O2 Sat by Pulse Oximetry (%) 97 08/03/18 09:00 Constitutional: Well Nourished Eyes: Yes: Conjunctiva Clear HENT: Yes: Atraumatic Neck: Yes: Supple Cardiovascular: Yes: Regular Rate and Rhythm Respiratory: Yes: CTA Bilaterally ...Palpate: Yes: Soft. No: Firm/Rigid, Guarding, Hepatomegaly, Mass, Pulsatile Mass, Splenomegaly, Tenderness Labs: CBC, BMP 08/03/18 06:00 08/03/18 06:00 Problem List - Problems (1) Intractable nausea and vomiting Assessment/Plan: secondary to severe gastroparesis R> continuReglan 5mg tid for 1 week then every other day if okay with Cardiology because of prolonged QT interval Code(s): R11.2 - NAUSEA WITH VOMITING, UNSPECIFIED
--- NOTE | 2018-08-03 23:39 | PN ---
Progress Note, Physician - Current Medication List Current Medications: Active Medications Insulin Aspart (Novolog Vial Sliding Scale -) 1 vial SQ ACHS [facility]; Protocol Last Admin: 08/03/18 22:05 Dose: 2 units Labetalol HCl (Normodyne -) 100 mg PO BID [facility] Last Admin: 08/03/18 22:05 Dose: 100 mg Magnesium Hydroxide (Milk Of Magnesia -) 30 ml PO Q8H PRN PRN Reason: CONSTIPATION Last Admin: 08/02/18 12:54 Dose: 30 ml Metoclopramide HCl (Reglan -) 5 mg PO TIDAC [facility] Last Admin: 08/03/18 17:09 Dose: 5 mg Morphine Sulfate (Morphine Sulfate) 2 mg IVPUSH Q6H PRN PRN Reason: PAIN LEVEL 6-10 Last Admin: 08/03/18 05:42 Dose: 2 mg Pantoprazole Sodium (Protonix -) 40 mg PO DAILY [facility] - Objective Vital Signs: Vital Signs Temperature 98.2 F 08/03/18 16:30 Pulse Rate 92 H 08/03/18 16:45 Respiratory Rate 18 08/03/18 16:45 Blood Pressure 138/80 08/03/18 16:45 O2 Sat by Pulse Oximetry (%) 98 08/03/18 21:00 Labs: CBC, BMP 08/03/18 06:00 08/03/18 06:00 Problem List - Problems (1) Abdominal pain Code(s): R10.9 - UNSPECIFIED ABDOMINAL PAIN (2) Diabetes Code(s): E11.9 - TYPE 2 DIABETES MELLITUS WITHOUT COMPLICATIONS (3) HTN (hypertension) Code(s): I10 - ESSENTIAL (PRIMARY) HYPERTENSION (4) Nausea & vomiting Code(s): R11.2 - NAUSEA WITH VOMITING, UNSPECIFIED Qualifiers: Vomiting type: unspecified Vomiting Intractability: non-intractable Qualified Code(s): R11.2 - Nausea with vomiting, unspecified
[2018-08-04] MEDS: INSULIN SLIDING SCALE (NOVOLOG) 1 VIAL SQ SCH (06:13)
[2018-08-04] MEDS: METOCLOPRAMIDE HCL 10 MG TABLET (FP) PO SCH ×2 (06:42→10:35)
[2018-08-04 06:59] VITALS: BP 169/89; PULSE 87; TEMP 97.6
[2018-08-04 07:12] LABS: BASO % 0.5 % (0-2.0); EOS % 4.9 % (0-4.5); HEMATOCRIT 28.7 % (35.4-49); HEMOGLOBIN 9.2 GM/dL (11.7-16.9); LYMPH % 14.7 % (8-40); MCH 26.7 pg (25.7-33.7); MCHC 31.9 g/dl (32.0-35.9); MEAN CELL VOLUME 83.7 fl (80-96); MONO % 6.1 % (3.8-10.2); NEUT % 73.8 % (42.8-82.8); PLATELET COUNT 253 K/MM3 (134-434); RBC 3.43 M/mm3 (4.00-5.60); RDW 17.6 % (11.9-15.9)
[2018-08-04 07:57] LABS: ALBUMIN 2.3 g/dl (3.4-5.0); ALK PHOS 194 U/L (45-117); ANION GAP 9 MMOL/L (8-16); BILIRUBIN,TOTAL 0.6 mg/dL (0.2-1); BLOOD UREA NITROGEN 8 mg/dL (7-18); CHLORIDE 109 mmol/L (98-107); CO2 20 mmol/L (21-32); CREATININE 1.5 mg/dL (0.55-1.3); GLUCOSE,RANDOM 130 mg/dL (74-106); POTASSIUM 3.1 mmol/L (3.5-5.1); SGOT/AST 14 U/L (15-37); SGPT/ALT 11 U/L (13-61); SODIUM 139 mmol/L (136-145); TOT PROT 5.7 g/dl (6.4-8.2)
--- NOTE | 2018-08-04 09:15 | PN ---
Progress Note, Physician Chief Complaint: Seen and examined TELE: NSR w/ occasional PACs with aberrancy, rare VPCs/ History of Present Illness: He states he wants to leave today, will not stay for stress test. He will sign out against medical advice - Current Medication List Current Medications: Active Medications Insulin Aspart (Novolog Vial Sliding Scale -) 1 vial SQ ACHS [facility]; Protocol Last Admin: 08/04/18 06:13 Dose: Not Given Labetalol HCl (Normodyne -) 100 mg PO BID [facility] Last Admin: 08/03/18 22:05 Dose: 100 mg Magnesium Hydroxide (Milk Of Magnesia -) 30 ml PO Q8H PRN PRN Reason: CONSTIPATION Last Admin: 08/02/18 12:54 Dose: 30 ml Metoclopramide HCl (Reglan -) 5 mg PO TIDAC [facility] Last Admin: 08/04/18 06:42 Dose: 5 mg Morphine Sulfate (Morphine Sulfate) 2 mg IVPUSH Q6H PRN PRN Reason: PAIN LEVEL 6-10 Last Admin: 08/03/18 05:42 Dose: 2 mg Pantoprazole Sodium (Protonix -) 40 mg PO DAILY [facility] - Objective Vital Signs: Vital Signs Temperature 97.6 F 08/04/18 05:00 Pulse Rate 87 08/04/18 05:00 Respiratory Rate 19 08/04/18 05:00 Blood Pressure 169/89 08/04/18 05:00 O2 Sat by Pulse Oximetry (%) 98 08/03/18 21:00 Constitutional: Yes: No Distress, Calm Eyes: Yes: Conjunctiva Clear Cardiovascular: Yes: Regular Rate and Rhythm Respiratory: Yes: CTA Bilaterally Gastrointestinal: Yes: Soft (soft and nontender) Edema: No Neurological: Yes: Alert, Oriented ...Motor Strength: WNL Labs: CBC, BMP 08/04/18 06:40 08/04/18 06:40 Laboratory Tests 08/04/18 08/04/18 06:40 06:40 WBC 8.0 Hgb 9.2 L Hct 28.7 L Plt Count 253 Sodium 139 Potassium 3.1 L BUN 8 Creatinine 1.5 H - ....Imaging EKG: Image Reviewed Assessment/Plan IMP: Epigastric pain, nausea Hx Peptic Ulcer Disease Prior GI bleeds Suspected chronic pancreatitis DM PAD s/p LLE BKA REC: 1. Replete K+ 2. Advised strongly for stress test prior to discharge. Patient refusing to stay. Risks of undiagnosed CAD discussed. Patient understands. Will sign out against AMA and f/u in office next week. 3. Lengthy discussion with him about Reglan and possible prolongation of QT. Risks of arrhythmia discussed. Advised him to not use it- try other measures to treat his gastroparesis including using his dentures to carefully chew food and puree his foods.
[2018-08-04] MEDS ORDERED: PANTOPRAZOLE 40 MG TABLET (FP) PO SCH (10:00)
[2018-08-04] MEDS: LABETALOL HCL 100 MG TABLET (FP) PO SCH (10:35)
[2018-08-04] MEDS ORDERED: POTASSIUM CHLORIDE ORAL LIQUID 20 MEQ/15 ML PO ONE (11:00)
--- NOTE | 2018-08-06 20:06 | DS ---
Physical Examination Vital Signs: Vital Signs Temperature 97.6 F 08/04/18 05:00 Pulse Rate 87 08/04/18 05:00 Respiratory Rate 19 08/04/18 05:00 Blood Pressure 169/89 08/04/18 05:00 O2 Sat by Pulse Oximetry (%) 98 08/04/18 10:00 Labs: CBC, BMP 08/04/18 06:40 08/04/18 06:40 Discharge Summary Reason For Visit: GASTROINTESTINAL HEMORRHAGE,PANCREATITIS Condition: Fair - Instructions Referrals: Dallsa Momin [Primary Care Provider] - Disposition: AGAINST MEDICAL ADVICE - Home Medications Comprehensive Discharge Medication List: Ambulatory Orders Insulin (Levemir) [Levemir Vial] 15 units SQ AM 08/01/18 Metoclopramide HCl [Reglan] 5 mg PO TID 08/01/18 Pantoprazole Sodium [Protonix] 40 mg PO DAILY 08/01/18 Ramipril [Altace] 2.5 mg PO DAILY 08/01/18 Simvastatin [Zocor -] 5 mg PO DAILY 08/01/18
== END 2018-08-04 12:00 | disposition left against medical advice (07) | DRG 48 ==
LOC: JER 04:10 → JERBED 06:45 → J5S 16:59 → J4S 08-02 18:32
PROVIDERS: ADMIT Internal Medicine; ATTEND Internal Medicine
DX: E11.43 Type 2 diabetes mellitus with diabetic autonomic (poly)neuropathy (principal); K31.84 Gastroparesis; K21.9 Gastro-esophageal reflux disease without esophagitis; I10 Essential (primary) hypertension; R11.2 Nausea with vomiting, unspecified; R10.9 Unspecified abdominal pain; F11.20 Opioid dependence, uncomplicated; K86.1 Other chronic pancreatitis; E11.51 Type 2 diabetes mellitus with diabetic peripheral angiopathy without gangrene; I45.81 Long QT syndrome; E66.9 Obesity, unspecified; Z87.891 Personal history of nicotine dependence; Z87.11 Personal history of peptic ulcer disease; Z79.4 Long term (current) use of insulin; Z89.512 Acquired absence of left leg below knee; Z91.14 Patient's other noncompliance with medication regimen; Z68.31 Body mass index [BMI] 31.0-31.9, adult
CPT/HCPCS: 36415; 71046-TC-FY; 74176-TC; 80048; 80053; 81003; 81015; 82150; 82550; 82962; 83605; 83690; 84484; 85025; 87086; 87186; 93005; 93010; 93306-TC; 99285-25; J0131; J7030

== ENCOUNTER 2018-09-16 13:48 | Emergency (ER) | payer OTHER ==
[2018-09-16 13:53] VITALS: BMI 31.5
[2018-09-16] MEDS ORDERED: SODIUM CHLORIDE 1,000 ML IV STA ×2 (14:11→17:57)
[2018-09-16] MEDS ORDERED: PANTOPRAZOLE SODIUM 40 MG VIAL IVPB ONE (14:11)
--- NOTE | 2018-09-16 14:13 | PDOC ---
History of Present Illness - General Chief Complaint: Nausea/Vomiting Stated Complaint: CHES PAIN Time Seen by Provider: 09/16/18 14:02 History Source: Patient Exam Limitations: No Limitations - History of Present Illness Initial Comments: 09/16/18 14:16 Patient is a 48 year old male with a PMHx of uncontrolled IDDMII (Noncompliant with medications) w/gastroparesis, GERD, HTN, Left BKA, multiple soft tissue infections, Right elbow and left buttock necrotizing fasciitis s/p surgical debridement who presents today with several episodes of nonbloody, nonbilious vomiting associated with epigastric pain for the past 2-3 days. Patient reports the vomiting is associated with constant, non radiating burning epigastric pain associated with anorexia, which prompted this hospital visit. Patient recently admitted (07/2018) for similar symptoms and left AMA. Patient was found to have gastroparesis but unable to take Reglan due to prolonged QTc. He was seen by Cardiology who determined that the risks outweigh the benefits and recommended a stress test but patient refused and left AMA. However, patient states he had a stress test with Dr. Katz recently after he left AMA and that it was negative. Otherwise, patient denies any diarrhea, melena, hematochezia, hematuria, dysuria , fever, chills, shortness of breath, loss of consciousness, dizziness, back pain, neck pain. Patient denies any weight change, loss of appetite, change in diet, change in bowel movements, change in stool caliber or color. Patient denies any jaundice, history of hepatitis, autoimmune disorder, recent travel, recent abx use or anticoagulations. Patient NSAID use Patient had EGD done (2014) and was found to have four linear ulcers, gastritis , esophagitis, hiatal hernia and possible zuleta's. PMHx: GERD HTN IDDMII w/ gastroparesis and neuropathy Gastritis Right elbow necrotizing fasciitis s/p surgical debridement Necrotizing soft tissue infection of left buttocks s/p multiple debridements Left BKA PSHx: Debirement of right elbow and left buttock Left BKA Social Hx: Currently unemployed. 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 Quit three years ago Former Smoker. Quit three years ago Denies drug use Family Hx: Father- Diabetes Allergies: NKDA Past History - Travel Traveled outside of the country in the last 30 days: No Close contact w/someone who was outside of country & ill: No - Past Medical History Allergies/Adverse Reactions: Allergies Allergy/AdvReac Type Severity Reaction Status Date / Time No Known Allergies Allergy Verified 09/16/18 13:53 Home Medications: Ambulatory Orders Insulin (Levemir) [Levemir Vial] 15 units SQ AM 08/01/18 Pantoprazole Sodium [Protonix] 40 mg PO DAILY 08/01/18 Ramipril [Altace] 10 mg PO DAILY 08/01/18 Simvastatin [Zocor -] 5 mg PO DAILY 08/01/18 Anemia: No Asthma: No Cancer: No Cardiac Disorders: Yes (DVT) CVA: No COPD: No CHF: No Dementia: No Diabetes: Yes (pt denies taking any meds) GI Disorders: (REFLUX) Disorders: No HTN: Yes Hypercholesterolemia: No Liver Disease: No Seizures: No Thyroid Disease: No - Surgical History Abdominal Surgery: No Appendectomy: No Cardiac Surgery: No Cholecystectomy: No Lung Surgery: No Neurologic Surgery: No Orthopedic Surgery: Yes (lt leg amputation ( lt BKA) 4 years ago) - Family Disease History Family Disease History: Diabetes: Father - Immunization History Immunization Up to Date: Yes - Suicide/Smoking/Psychosocial Hx Smoking Status: No Smoking History: Never smoked Have you smoked in the past 12 months: No Number of Cigarettes Smoked Daily: 0 If you are a former smoker, when did you quit?: 10 years ago Cigars Per Day: 0 Hx Alcohol Use: No Drug/Substance Use Hx: No Substance Use Type: None Hx Substance Use Treatment: No Review of Systems - Review of Systems Constitutional: No: Chills, Diaphoresis, Fever, Weakness HEENTM: No: Blurred Vision, Nose Congestion, Throat Pain, Difficulty Swallowing Respiratory: No: Cough, Orthopnea, Shortness of Breath, SOB with Exertion, Wheezing, Productive cough, Hemoptysis Cardiac (ROS): No: Chest Pain, Edema, Lightheadedness, Palpitations, Syncope, Chest Tightness ABD/GI: Yes: Nausea, Poor Fluid Intake, Vomiting, Other (epigastric pain ). No : Abd. Pain w/ defecation, Constipated, Diarrhea, Difficulty Swallowing, Indigestion, Abdominal cramping : No: Burning, Dysuria, Discharge, Frequency, Flank Pain, Hematuria, Pain Musculoskeletal: No: Back Pain, Joint Pain, Muscle Pain Integumentary: No: Bruising, Erythema, Rash Neurological: No: Headache, Numbness, Seizure, Tingling, Tremors, Dizziness *Physical Exam - Vital Signs Last Vital Signs Temp Pulse Resp BP Pulse Ox 102 H 20 179/117 H 99 09/16/18 13:52 09/16/18 13:52 09/16/18 13:52 09/16/18 13:52 - Physical Exam General Appearance: Yes: Other (Awake, alert, oriented x3, in mild distress ) HEENT: positive: EOMI, CATA, Normal ENT Inspection, Symmetrical, Pharynx Normal , Other (dry mucous membranes ) Neck: positive: Supple. negative: Decreased range of motion, Lymphadenopathy (R ), Lymphadenopathy (L) Respiratory/Chest: positive: Lungs Clear, Normal Breath Sounds. negative: Chest Tender, Respiratory Distress, Accessory Muscle Use, Crackles, Rales, Rhonchi, Wheezing Cardiovascular: positive: Regular Rhythm, Regular Rate, S1, S2. negative: Edema , JVD Gastrointestinal/Abdominal: positive: Other (Soft, nontender, nondistended, normactive bowel sounds, no organomegaly, no guarding or rebound tenderness ) Musculoskeletal: positive: Normal Inspection. negative: CVA Tenderness, CVA Tenderness (R), CVA Tenderness (L), Decreased Range of Motion Extremity: positive: Normal Capillary Refill, Normal Inspection, Normal Range of Motion. negative: Swelling, Calf Tenderness, Erythema Integumentary: positive: Normal Color, Dry, Warm. 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 NML intact, Fully Oriented, Alert, Motor Strength 5/5 Moderate Sedation - Procedure Monitoring Vital Signs: Procedure Monitoring Vital Signs Temperature Pulse Rate 102 H 09/16/18 13:52 Respiratory Rate 20 09/16/18 13:52 Blood Pressure 179/117 H 09/16/18 13:52 O2 Sat by Pulse Oximetry (%) 99 09/16/18 13:52 ED Treatment Course - LABORATORY CBC & Chemistry Diagram: 09/16/18 16:00 09/16/18 16:00 - RADIOLOGY Radiology Studies Ordered: Category Date Time Status CHEST X-RAY PORTABLE* [RAD] Stat Radiology 09/16/18 14:12 Ordered Medical Decision Making - Medical Decision Making 09/16/18 14:29 Patient is a 48 year old male with a significant PMHx of IDDMII w/ Gastroparesis and Neuropathy, GERD, gastritis who presented here today for a three day history of vomiting associated with epigastric pain. Patient was admitted here for similar episodes in the past and was found to have gastroparesis but unable to take Reglan due to QTc prolongation. DDx includes, but not limited to, gastritis, gastroenteritis, gastroparesis, pancreatitis, bowel obstruction, ACS. -CBC, CMP, CARDIAC profile, Lipase -EKG, CXR -IV NS, Protonix, IV Tylenol, Ativan for the vomiting/nausea 09/16/18 17:22 -Labs revealed ckd with slight leukocytosis -Patient responded well to ativan. -Will try po challenge 09/16/18 18:29 -Patient tolerated PO -Was sleeping in bed comfortably for over 3 hours without vomiting -Requests a referral for another GI doctor. -Will discharge *DC/Admit/Observation/Transfer Diagnosis at time of Disposition: Gastroparesis, Epigastric abdominal pain Nausea & vomiting Qualifiers: Vomiting type: unspecified Vomiting Intractability: unspecified Qualified Code( s): R11.2 - Nausea with vomiting, unspecified - Discharge Dispostion Disposition: HOME Condition at time of disposition: Stable Decision to Admit order: No - Referrals Referrals: Dallas Momin [Primary Care Provider] - Leno Ovalle MD [Staff Physician] - Cathy Bella DO [Staff Physician] - - Patient Instructions Additional Instructions: -You were seen here for nausea, vomiting and abdominal pain due to a problem called gastroparesis. You were given fluids with anti acid medications. However, you are unable to take anti nausea medication due to something called QTc prolongation that you were diagnosed with and evaluated by a city driver. -A referral for a stomach doctor is given to you for follow up within a week. Her name is Dr. Bella. Her contact information will be in your discharge packet -A referral for an wellness specialist, Dr. Ovalle, will also be in your discharge packet. Please follow up within a week. -Please follow up with your primary care physician within a week -Remain hydrated with lot's of fluids. -If symptoms persist or worsens, return to the emergency department - Post Discharge Activity
[2018-09-16] MEDS ORDERED: ACETAMINOPHEN 1000 MG/100 ML VIAL (NON FORMULARY) IVPB ONE (14:26)
--- NOTE | 2018-09-16 14:33 | PDOC ---
Attending Attestation - Resident Resident Name: ValentinajuanitaAinsley - ED Attending Attestation I have performed the following: I have examined & evaluated the patient, The case was reviewed & discussed with the resident, I agree w/resident's findings & plan, Exceptions are as noted - HPI HPI: 09/16/18 14:28 48 M with h/o IDDM (noncompliant w/ medications), GERD, HTN, left BKA, gastroparesis, UGIB, presenting to ED with vomiting and abdominal pain. Pt states that since 2 days ago, he has had several episodes of nonbloody vomiting. Also endorses associated epigastric pain. Denies diarrhea. Pt states that he has not had a BM since 2 days ago but denies any abdominal distention. Pt states this feels exactly like his prior gastroparesis flares. Denies lower abdominal pain. Endorses burning pain radiating from his epigastrum to his chest. Denies SOB. - Physicial Exam PE: 09/16/18 14:32 "GENERAL: Awake, alert, and fully oriented, in no acute distress. HEAD: No signs of trauma EYES: PERRLA, EOMI, sclera anicteric, conjunctiva clear ENT: Auricles normal inspection, hearing grossly normal, nares patent, oropharynx clear without exudates. Moist mucosa NECK: Nontender, no stepoffs, Normal ROM, supple, no lymphadenopathy, JVD, or masses LUNGS: Breath sounds equal, clear to auscultation bilaterally. No wheezes, and no crackles HEART: Regular rate and rhythm, normal S1 and S2, no murmurs, rubs or gallops ABDOMEN: Soft, + epigastric TTP, normoactive bowel sounds. No guarding, no rebound. No masses EXTREMITIES: Normal range of motion, no edema. No clubbing or cyanosis. No cords, erythema, or tenderness NEUROLOGICAL: Cranial nerves II through XII intact. 5/5 strength and sensation in all extremities, Normal speech, normal gait, normal cerebellar function SKIN: Warm, Dry, normal turgor, no rashes or lesions noted. - Medical Decision Making 09/16/18 14:33 48 M with epigastric pain, N+V. Consistent with previous episodes of gastroparesis. Pt with no evidence of GIB today, emesis visualized without blood or coffee grounds. Pt with epigastric TTP on exam, otherwise benign abdomen. - Labs, lipase, cardiac enzymes - IVF, GI cocktail 09/16/18 17:25 Labs unremarkable Pt reassessed after meds, now feels much better Given glass of water for PO challenge, will reassess 09/16/18 17:50 Pt tolerated PO water Dispo pending repeat vital signs Pt signed out to oncoming attending, pending repeat vitals and re-evaluation.
[2018-09-16] MEDS ORDERED: PANTOPRAZOLE SODIUM 40 MG/100 ML BAG IVPB ONE (15:09)
[2018-09-16] MEDS ORDERED: LORazepam 2 MG/ML SDV VIAL ONE (15:09)
[2018-09-16] MEDS ORDERED: ACETAMINOPHEN INJECTION 100 ML IVPB ONE (15:09)
[2018-09-16 16:14] LABS: BASO % 0.2 % (0-2.0); LYMPH % 7.2 % (8-40); MCH 27.5 pg (25.7-33.7); MCHC 34.4 g/dl (32.0-35.9); MEAN CELL VOLUME 79.8 fl (80-96); MEAN PLT VOLUME 8.4 fl (7.5-11.1); MONO % 4.1 % (3.8-10.2); NEUT % 88.5 % (42.8-82.8); PLATELET COUNT 395 K/MM3 (134-434); RBC 4.01 M/mm3 (4.00-5.60); RDW 15.6 % (11.9-15.9); WHITE BLOOD COUNT 11.1 K/mm3 (4.0-10.0)
[2018-09-16 17:04] LABS: ALBUMIN 2.7 g/dl (3.4-5.0); ALK PHOS 243 U/L (45-117); ANION GAP 9 MMOL/L (8-16); BILIRUBIN,TOTAL 0.6 mg/dL (0.2-1); BLOOD UREA NITROGEN 19 mg/dL (7-18); CALCIUM 8.4 mg/dL (8.5-10.1); CHLORIDE 112 mmol/L (98-107); CO2 22 mmol/L (21-32); CREATININE 1.8 mg/dL (0.55-1.3); GLUCOSE,RANDOM 210 mg/dL (74-106); LIPASE 95 U/L (73-393); POTASSIUM 3.8 mmol/L (3.5-5.1); SGOT/AST 24 U/L (15-37); SGPT/ALT 12 U/L (13-61); SODIUM 142 mmol/L (136-145); TOT PROT 6.8 g/dl (6.4-8.2)
[2018-09-16] MEDS ORDERED: RAMIPRIL 5 MG CAPSULE (FP) PO ONE (17:59)
[2018-09-16] MEDS ORDERED: RAMIPRIL 5 MG CAPSULE (FP) ONE (18:47)
[2018-09-16 19:04] VITALS: BP 160/74; PULSE 100
[2018-09-17 02:52] LABS: URIC ACID 6.5 mg/dL (2.6-7.2)
--- NOTE | 2018-09-17 09:44 | EKG ---
Test Reason : Blood Pressure : / mmHG Vent. Rate : 109 BPM Atrial Rate : 109 BPM P-R Int : 152 ms QRS Dur : 086 ms QT Int : 350 ms P-R-T Axes : 045 001 001 degrees QTc Int : 471 ms SINUS TACHYCARDIA WHEN COMPARED WITH ECG OF 02-AUG-2018 00:27, PREMATURE VENTRICULAR COMPLEXES ARE NO LONGER PRESENT Confirmed by HENRRY MELCHOR MD ([id number]) on 09/17/2018 9:44:08 AM Referred By: Confirmed By:HENRRY MELCHOR MD
== END 2018-09-16 19:10 | disposition home or self-care (01) ==
LOC: JER 13:48
PROC: 3E033NZ Introduction of Analgesics, Hypnotics, Sedatives into Peripheral Vein, Percutaneous Approach (ICD-10-PCS; principal; 2018-09-16)
PROC: 3E033GC Introduction of Other Therapeutic Substance into Peripheral Vein, Percutaneous Approach (ICD-10-PCS; 2018-09-16)
PROC: 3E0337Z Introduction of Electrolytic and Water Balance Substance into Peripheral Vein, Percutaneous Approach (ICD-10-PCS; 2018-09-16)
DX: R10.13 Epigastric pain (principal); E11.9 Type 2 diabetes mellitus without complications; I10 Essential (primary) hypertension; Z89.519 Acquired absence of unspecified leg below knee; K31.84 Gastroparesis; K21.9 Gastro-esophageal reflux disease without esophagitis; Z87.891 Personal history of nicotine dependence
CPT/HCPCS: 36415; 71045-TC-FY; 80053; 82009; 82550; 83690; 84443; 84484; 84550; 85025; 93005; 93010; 96361; 96374; 96375; 99283-25; J0131; J7030

== ENCOUNTER 2019-09-19 20:18 | Inpatient (IN) | payer OTHER ==
--- NOTE | 2019-09-19 20:36 | PDOC ---
History of Present Illness - General Chief Complaint: Altered Mental Status Stated Complaint: BODY PAIN AND SWELLING Time Seen by Provider: 09/19/19 20:36 - History of Present Illness Initial Comments: 09/19/19 20:37 48 M with h/o IDDM (noncompliant w/ medications), GERD, HTN, left BKA, gastroparesis, UGIB, R TKR, R forearm spider bite requiring graft from the R thigh, prior alcoholic quit 2 years ago who presents with progressive confusion for the past 4 days and associated with R thigh and facial swelling. reports the patient was most confused today when he didn't know where he was despite being at home and she brought him to the ER. She seems to link all his symptoms after he went to a new gym in [place]. She denies the patient having a history of autism, underlying MR or any developmental delay. She denies fever, diarrhea, chest pain or shortness of breath but notes that he had 1x nbnb emesis. fingerstick en route 77 : Doretha [phone] ROS GENERAL/CONSTITUTIONAL: No fever or chills. No weakness. HEAD, EYES, EARS, NOSE AND THROAT: No change in vision. No ear pain or discharge. No sore throat. CARDIOVASCULAR: No chest pain or shortness of breath RESPIRATORY: No cough, wheezing, or hemoptysis. GASTROINTESTINAL: No nausea, vomiting, diarrhea or constipation. GENITOURINARY: No dysuria, frequency, or change in urination. MUSCULOSKELETAL: No joint or muscle swelling or pain. No neck or back pain. SKIN: No rash NEUROLOGIC: No headache, vertigo, loss of consciousness, or change in strength/ sensation. ENDOCRINE: No increased thirst. No abnormal weight change HEMATOLOGIC/LYMPHATIC: No anemia, easy bleeding, or history of blood clots. ALLERGIC/IMMUNOLOGIC: No hives or skin allergy. PE GENERAL: Awake, AOx2, in no acute distress HEAD: No signs of trauma, normocephalic, atraumatic EYES: PERRLA, EOMI, sclera anicteric, conjunctiva clear ENT: oropharynx clear without exudates. Moist mucosa NECK: Normal ROM, supple, no nuchal rigidty LUNGS: No distress, speaks full sentences, clear to auscultation bilaterally HEART: Regular rate and rhythm, normal S1 and S2, no murmurs, rubs or gallops, peripheral pulses normal and equal bilaterally. CHEST: tender to chest wall palpation ABDOMEN: Soft, + diffusely tender. No guarding, no rebound. No masses EXTREMITIES : Normal inspection, Normal range of motion,+ 1+ edema on the R lower thigh, No asterixis NEUROLOGICAL: Cranial nerves II through XII grossly intact. Normal speech, no focal sensorimotor deficits SKIN: Warm, Dry, normal turgor, no rashes or lesions noted MDM DDX including but not limited to: electroylte derangement hypoglycemia tox vs hyperammonia cva infectious ED Course: Patient with unclear presentation Will keep workup broad start banana bag as patient with alcoholic history EKG: nsr at 89bpm, FL of 80ms, nonspecific ST and T wave abnormalities, low voltage qrs compared to prior EKG (09/16/18) labs with significant drop in H/H from past labs H/H today: 7.6/24.9 H/H on 09/16/18: CBCD WBC 11.7 K/mm3 (4.0-10.0) H 09/19/19 21:30 RBC 2.63 M/mm3 (4.00-5.60) L 09/19/19 21:30 Hgb 7.6 GM/dL (11.7-16.9) L 09/19/19 21:30 Hct 24.9 % (35.4-49) L D 09/19/19 21:30 MCV 94.7 fl (80-96) 09/19/19 21:30 MCHC 30.5 g/dl (32.0-35.9) L 09/19/19 21:30 RDW 17.3 % (11.9-15.9) H 09/19/19 21:30 Plt Count 226 K/MM3 (134-434) D 09/19/19 21:30 MPV 9.4 fl (7.5-11.1) D 09/19/19 21:30 CMP Sodium 137 mmol/L (136-145) 09/19/19 21:30 Potassium 6.0 mmol/L (3.5-5.1) H 09/19/19 21:30 Chloride 115 mmol/L (98-107) H 09/19/19 21:30 Carbon Dioxide 8 mmol/L (21-32) L 09/19/19 21:30 Anion Gap 13 MMOL/L (8-16) 09/19/19 21:30 BUN 95.4 mg/dL (7-18) H 09/19/19 21:30 Creatinine 9.2 mg/dL (0.55-1.3) H* 09/19/19 21:30 Calcium 7.3 mg/dL (8.5-10.1) L 09/19/19 21:30 Total Bilirubin 0.2 mg/dL (0.2-1) 09/19/19 21:30 AST 17 U/L (15-37) 09/19/19 21:30 ALT 16 U/L (13-61) 09/19/19 21:30 Alkaline Phosphatase 180 U/L (45-117) H 09/19/19 21:30 Total Protein 6.2 g/dl (6.4-8.2) L 09/19/19 21:30 Albumin 3.2 g/dl (3.4-5.0) L 09/19/19 21:30 Patient with pH of 7 w/ a metabolic and respiratory acidosis Na of 137 K of 6 CO2 of 8 BUN 95.4 Cr 9.2 Patient with likely uremia and kidney failure Case discussed with nephrology Dr. Phillips who recommends bicarb pushes as needed as patient is fluid overloaded, medical management of potassium and likely urgent dialysis Given 2 amps of bicarb Given insulin/dex/albuterol for hyperkalemia Consult placed to ICU resident Dr. Lance Plan for admission Consent for trialysis catheter obtained over the phone with by Dr. Mock and attending Dr. Holley, witnessed by this sports book writer at [id number]. 09/20/19 01:10 Trialysis catheter placed under the supervision of attending Dr. Holley and senior resident Dr. Mock good blood return, pending confirmatory CXR Daniella Napoles, PGY2 Emergency Medicine Past History - Past Medical History Allergies/Adverse Reactions: Allergies Allergy/AdvReac Type Severity Reaction Status Date / Time No Known Allergies Allergy Verified 09/16/18 13:53 Home Medications: Ambulatory Orders Acetaminophen [Tylenol .Regular Strength -] 650 mg PO Q6H PRN tablet 10/01/19 Amlodipine Besylate 10 mg PO DAILY #30 tablet 10/01/19 Calcium 250Mg/Vit-D 125 Units [Oscal 250 mg+D -] 2 combo PO DAILY #60 tablet Gabapentin 300 mg PO DAILY #30 capsule 10/01/19 Iron Polysaccharides [Niferex-150 -] 150 mg PO DAILY #30 capsule 10/01/19 Labetalol HCl [Normodyne -] 100 mg PO BID #60 tablet 10/01/19 Pantoprazole Sodium [Protonix] 40 mg PO DAILY #30 tablet. 10/01/19 Anemia: No Asthma: No Cancer: No Cardiac Disorders: Yes (DVT) CVA: No COPD: No CHF: No Dementia: No Diabetes: Yes (pt denies taking any meds) GI Disorders: (REFLUX) Disorders: No HTN: Yes Hypercholesterolemia: Yes Liver Disease: No Seizures: No Thyroid Disease: No - Surgical History Abdominal Surgery: No Appendectomy: No Cardiac Surgery: No Cholecystectomy: No Lung Surgery: No Neurologic Surgery: No Orthopedic Surgery: Yes (lt leg amputation ( lt BKA) 4 years ago) - Immunization History Immunization Up to Date: Yes - Psycho Social/Smoking Cessation Hx Smoking Status: No Smoking History: Former smoker Have you smoked in the past 12 months: No Number of Cigarettes Smoked Daily: 0 If you are a former smoker, when did you quit?: 10 years ago Cigars Per Day: 0 Hx Alcohol Use: No Drug/Substance Use Hx: No Substance Use Type: None Hx Substance Use Treatment: No Procedures - Central Line Central Line Lumen: trialysis catheter Central Line Position: internal jugular (L) Anesthesia: 1% Lidocaine Amount of anesthesia (ccs): 8 Complications: none Post Central Line Insertion: sutured, good blood return, position confirmed w/ CXR ED Treatment Course - LABORATORY CBC & Chemistry Diagram: 10/01/19 08:50 10/01/19 08:50 Discharge - Discharge Information Problems reviewed: Yes Clinical Impression/Diagnosis: Uremia, Altered mental status Condition: Stable Disposition: HOME - Admission Yes - Follow up/Referral - Patient Discharge Instructions - Post Discharge Activity Critical Care Time/MDM Note Total Critical Care Time: 90 Critical Care Statement: The care of this patient involved high complexity decision making to prevent further life threatening deterioration of the patient 's condition and/or to evaluate & treat vital organ system(s) failure or risk of failure.
[2019-09-19] MEDS ORDERED: FOLIC ACID INJECTION - 1 MG, THIAMINE HCL 100 MG, MULTIVIT INJECTION ADULT 10 ML in SOD... IVPB ONE (21:40)
[2019-09-19 22:25] LABS: BASO % 0.7 % (0-2.0); EOS % 3.1 % (0-4.5); HEMATOCRIT 24.9 % (35.4-49); HEMOGLOBIN 7.6 GM/dL (11.7-16.9); LYMPH % 9.2 % (8-40); MCH 28.9 pg (25.7-33.7); MCHC 30.5 g/dl (32.0-35.9); MEAN CELL VOLUME 94.7 fl (80-96); MEAN PLT VOLUME 9.4 fl (7.5-11.1); MONO % 7.1 % (3.8-10.2); NEUT % 79.9 % (42.8-82.8); PLATELET COUNT 226 K/MM3 (134-434); RBC 2.63 M/mm3 (4.00-5.60); RDW 17.3 % (11.9-15.9); WHITE BLOOD COUNT 11.7 K/mm3 (4.0-10.0)
[2019-09-19 22:31] LABS: VENOUS PC02 28.7 mmHg (38-52); VENOUS PO2 54.2 mmHg (28-48)
[2019-09-19 22:33] LABS: VENOUS PH 6.95 (7.31-7.41)
[2019-09-19] MEDS ORDERED: SODIUM BICARBONATE 4.2% 5 MEQ/10 ML DISP.SYRIN IVPUSH ONE ×2 (22:42→22:52)
--- NOTE | 2019-09-19 22:49 | PDOC ---
Attending Attestation - Resident Resident Name: Daniella Napoles - ED Attending Attestation I have performed the following: I have examined & evaluated the patient, The case was reviewed & discussed with the resident, I agree w/resident's findings & plan, Exceptions are as noted - HPI HPI: 09/20/19 02:52 See resident HPI - Physicial Exam PE: 09/20/19 02:53 Agree with exam as documented by resident - Medical Decision Making 09/20/19 02:53 Worsening mental status per over the last several days, differential is broad Evaluate for electrolyte derangments, hypoglycemia, cva, encephalopathy hepatic vs uremic, toxic ingestion, less likely infectious etiology f/u labs, ct b hyperkalemia uremic anemic presentation likely 2/2 uremia admit icu
[2019-09-19] MEDS: SODIUM BICARBONATE 4.2% 5 MEQ/10 ML DISP.SYRIN IVPUSH SCH (22:51)
[2019-09-19 22:59] LABS: N-TERMINAL BNP 20542.3 pg/ml (5-125)
[2019-09-19 23:03] LABS: ARTERIAL BLD GAS O2 SATURATION 92.3 % (95-98); ARTERIAL BLOOD GAS PCO2 23.5 mmHg (35-45)
[2019-09-19 23:04] LABS: ALLENS TEST POSITIVE
[2019-09-19 23:25] LABS: ALBUMIN 3.2 g/dl (3.4-5.0); ALK PHOS 180 U/L (45-117); ANION GAP 13 MMOL/L (8-16); BILIRUBIN,TOTAL 0.2 mg/dL (0.2-1); BLOOD UREA NITROGEN 95.4 mg/dL (7-18); CALCIUM 7.3 mg/dL (8.5-10.1); CHLORIDE 115 mmol/L (98-107); CO2 8 mmol/L (21-32); GLUCOSE,RANDOM 100 mg/dL (74-106); MAGNESIUM 2.2 mg/dL (1.8-2.4); PHOSPHOROUS 8.2 mg/dL (2.5-4.9); SGOT/AST 17 U/L (15-37); SGPT/ALT 16 U/L (13-61); SODIUM 137 mmol/L (136-145); TOT PROT 6.2 g/dl (6.4-8.2)
[2019-09-19 23:27] LABS: CREATININE 9.2 mg/dL (0.55-1.3)
[2019-09-19] MEDS ORDERED: ALBUTEROL SO4 0.083% IH SOL 2.5 MG/3 ML VIAL.NEB. NEB ONE (23:44)
[2019-09-19] MEDS ORDERED: INSULIN REGULAR HUMAN 100 UNITS/ML *VIAL IVPUSH ONE (23:44)
[2019-09-19] MEDS ORDERED: DEXTROSE 50%-WATER - 25 GM/50 ML VIAL IVPUSH ONE (23:44)
[2019-09-19] MEDS ORDERED: CALCIUM GLUCONATE 10% - 1,000 MG/10 ML VIAL IVPUSH ONE (23:50)
--- NOTE | 2019-09-20 00:02 | HP ---
Admitting History and Physical - Primary Care Physician PCP: Gennaro Tobar - Admission Chief Complaint: AMS History of Present Illness: This is a 48 y/o man with a PMHx of IDDM (noncompliant w/ medications), GERD, HTN, Left BKA, Gastroparesis, UGIB, R -TKR, R forearm spider bite (requiring graft from the R thigh), Former Alcohol Abuse (quit 2 years ago). Who presents to the ED with progressive confusion for the past 4 days and associated with R thigh and facial swelling. Per ED: reports the patient was most confused today when he didn't know where he was despite being at home and she brought him to the ER. She seems to link all his symptoms after he went to a new gym in [place]. She denies the patient having a history of autism, underlying MR or any developmental delay. She denies fever, diarrhea, chest pain or shortness of breath but notes that he had 1x nbnb emesis. fingerstick en route 77 : Doretha [phone] History Source: Family Member Limitations to Obtaining History: Clinical Condition - Past Medical History Cardiovascular: Yes: HTN, Hyperlipdemia Gastrointestinal: Yes: GERD, GI Bleed Heme/Onc: Yes: Anemia Infectious Disease: Yes: MRSA (several years ago) Musculoskeletal: Yes: Other (left thigh pain) Endocrine: Yes: Diabetes Mellitus Dermatology: Yes: Cellulitis (mrsa) - Past Surgical History Past Surgical History: Yes: Amputation (left BKA), Joint Replacement - Smoking History Smoking history: Former smoker Have you smoked in the past 12 months: No Aproximately how many cigarettes per day: 0 If you are a former smoker, when did you quit?: 10 years ago - Alcohol/Substance Use Hx Alcohol Use: No (Former 2 year ago) History of Substance Use: reports: Cocaine (intranasal and crack coaine abuse in past) - Social History Usual Living Arrangement: Yes: With Spouse ADL: Independent History of Recent Travel: No Home Medications - Allergies Allergies/Adverse Reactions: Allergies Allergy/AdvReac Type Severity Reaction Status Date / Time No Known Allergies Allergy Verified 09/16/18 13:53 - Home Medications Home Medications: Ambulatory Orders Pantoprazole Sodium [Protonix] 40 mg PO DAILY 08/01/18 Ramipril [Altace] 10 mg PO DAILY 08/01/18 Simvastatin [Zocor -] 5 mg PO DAILY 08/01/18 Family Medical History Family History: Unable to Obtain Review of Systems Unable to obtain ROS, reason: Clinical Condition Physical Examination Vital Signs: Vital Signs Temperature 97 F L 09/19/19 20:35 Pulse Rate 90 09/19/19 20:35 Respiratory Rate 20 09/19/19 20:35 Blood Pressure 150/99 09/19/19 20:35 O2 Sat by Pulse Oximetry (%) 99 09/19/19 20:35 Constitutional: Yes: Other (Lethargy- arousable to verbal and deep tactile stimulus) Eyes: Yes: Conjunctiva Clear, PERRL HENT: Yes: WNL, Atraumatic, Normocephalic Neck: Yes: WNL, Supple, Trachea Midline Cardiovascular: Yes: Regular Rate and Rhythm, S1, S2 Respiratory: Yes: Diminished Gastrointestinal: Yes: WNL, Normal Bowel Sounds, Soft, Abdomen, Obese Renal/: Yes: Yanez Present (dark yellow-brown urine in tubing/collection bag) Breast(s): Yes: WNL Musculoskeletal: Yes: WNL Extremities: Yes: Amputation (L- BKA) Edema: No Peripheral Pulses WNL: Yes Neurological: Yes: Lethargy Labs: CBC, BMP 09/19/19 21:30 09/19/19 21:30 Laboratory Results - last 24 hr 09/19/19 09/19/19 09/19/19 20:54 21:30 21:30 WBC 11.7 H RBC 2.63 L Hgb 7.6 L Hct 24.9 L D MCV 94.7 MCH 28.9 MCHC 30.5 L RDW 17.3 H Plt Count 226 D MPV 9.4 D Absolute Neuts (auto) 9.4 H Neutrophils % 79.9 Neutrophils % (Manual) 80.0 Band Neutrophils % 2.0 Lymphocytes % 9.2 D Lymphocytes % (Manual) 10.0 D Monocytes % 7.1 Monocytes % (Manual) 4 D Eosinophils % 3.1 D Eosinophils % (Manual) 1.0 Basophils % 0.7 D Basophils % (Manual) 0.0 Myelocytes % (Man) 0 Promyelocytes % (Man) 0 Blast Cells % (Manual) 0 Nucleated RBC % 1 H Metamyelocytes 3 H Anticoagulation Therapy Puncture Site ABG pH ABG pCO2 at Pt Temp ABG pO2 at Pt Temp ABG HCO3 ABG O2 Sat (Measured) ABG O2 Content ABG Base Excess Zack Test VBG pH POC VBG pCO2 POC VBG pO2 VBG HCO3 VBG O2 Sat (Justice) VBG Base Excess Carboxyhemoglobin Methemoglobin O2 Delivery Device Oxygen Flow Rate Vent Mode Vent Rate Mechanical Rate Pressure Support Vent Sodium Potassium Chloride Carbon Dioxide Anion Gap BUN Creatinine Est GFR (CKD-EPI)AfAm Est GFR (CKD-EPI)NonAf POC Glucometer 94 Random Glucose Lactic Acid Calcium Phosphorus Magnesium Total Bilirubin AST ALT Alkaline Phosphatase Ammonia Troponin I B-Natriuretic Peptide Total Protein Albumin Vitamin B12 TSH Urine Color Urine Appearance Urine pH Ur Specific [place] Urine Protein Urine Glucose (UA) Urine Ketones Urine Blood Urine Nitrite Urine Bilirubin Urine Urobilinogen Ur Leukocyte Esterase Urine WBC (Auto) Urine RBC (Auto) Urine Casts (Auto) U Epithel Cells (Auto) Urine Bacteria (Auto) Stool Occult Blood Salicylates Opiates Screen Methadone Screen Acetaminophen Barbiturate Screen Phencyclidine Screen Ur Amphetamines Screen MDMA (Ecstasy) Screen Benzodiazepines Screen Cocaine Screen U Marijuana (THC) Screen Alcohol, Quantitative Influenza A (Rapid) Negative Influenza B (Rapid) Negative 09/19/19 09/19/19 09/19/19 21:30 21:30 21:30 WBC RBC Hgb Hct MCV MCH MCHC RDW Plt Count MPV Absolute Neuts (auto) Neutrophils % Neutrophils % (Manual) Band Neutrophils % Lymphocytes % Lymphocytes % (Manual) Monocytes % Monocytes % (Manual) Eosinophils % Eosinophils % (Manual) Basophils % Basophils % (Manual) Myelocytes % (Man) Promyelocytes % (Man) Blast Cells % (Manual) Nucleated RBC % Metamyelocytes Anticoagulation Therapy Puncture Site ABG pH ABG pCO2 at Pt Temp ABG pO2 at Pt Temp ABG HCO3 ABG O2 Sat (Measured) ABG O2 Content ABG Base Excess Zack Test VBG pH POC VBG pCO2 POC VBG pO2 VBG HCO3 VBG O2 Sat (Justice) VBG Base Excess Carboxyhemoglobin Methemoglobin O2 Delivery Device Oxygen Flow Rate Vent Mode Vent Rate Mechanical Rate Pressure Support Vent Sodium 137 Potassium 6.0 H Chloride 115 H Carbon Dioxide 8 L Anion Gap 13 BUN 95.4 H Creatinine 9.2 H* Est GFR (CKD-EPI)AfAm 7.02 Est GFR (CKD-EPI)NonAf 6.06 POC Glucometer Random Glucose 100 Lactic Acid Calcium 7.3 L Phosphorus 8.2 H Magnesium 2.2 Total Bilirubin 0.2 AST 17 ALT 16 Alkaline Phosphatase 180 H Ammonia Troponin I < 0.02 B-Natriuretic Peptide 14204.3 H Total Protein 6.2 L Albumin 3.2 L Vitamin B12 368 TSH 4.26 H D Urine Color Urine Appearance Urine pH Ur Specific [place] Urine Protein Urine Glucose (UA) Urine Ketones Urine Blood Urine Nitrite Urine Bilirubin Urine Urobilinogen Ur Leukocyte Esterase Urine WBC (Auto) Urine RBC (Auto) Urine Casts (Auto) U Epithel Cells (Auto) Urine Bacteria (Auto) Stool Occult Blood Salicylates < 1.7 L Opiates Screen Methadone Screen Acetaminophen <2.0 Barbiturate Screen Phencyclidine Screen Ur Amphetamines Screen MDMA (Ecstasy) Screen Benzodiazepines Screen Cocaine Screen U Marijuana (THC) Screen Alcohol, Quantitative < 3 Influenza A (Rapid) Influenza B (Rapid) 09/19/19 09/19/19 09/19/19 21:30 21:30 21:30 WBC RBC Hgb Hct MCV MCH MCHC RDW Plt Count MPV Absolute Neuts (auto) Neutrophils % Neutrophils % (Manual) Band Neutrophils % Lymphocytes % Lymphocytes % (Manual) Monocytes % Monocytes % (Manual) Eosinophils % Eosinophils % (Manual) Basophils % Basophils % (Manual) Myelocytes % (Man) Promyelocytes % (Man) Blast Cells % (Manual) Nucleated RBC % Metamyelocytes Anticoagulation Therapy Puncture Site ABG pH ABG pCO2 at Pt Temp ABG pO2 at Pt Temp ABG HCO3 ABG O2 Sat (Measured) ABG O2 Content ABG Base Excess Zack Test VBG pH POC VBG pCO2 POC VBG pO2 VBG HCO3 VBG O2 Sat (Justice) VBG Base Excess Carboxyhemoglobin Methemoglobin O2 Delivery Device Oxygen Flow Rate Vent Mode Vent Rate Mechanical Rate Pressure Support Vent Sodium Potassium Chloride Carbon Dioxide Anion Gap BUN Creatinine Est GFR (CKD-EPI)AfAm Est GFR (CKD-EPI)NonAf POC Glucometer Random Glucose Lactic Acid 0.5 Calcium Phosphorus Magnesium Total Bilirubin AST ALT Alkaline Phosphatase Ammonia 31.80 Troponin I B-Natriuretic Peptide Total Protein Albumin Vitamin B12 TSH Urine Color Urine Appearance Urine pH Ur Specific [place] Urine Protein Urine Glucose (UA) Urine Ketones Urine Blood Urine Nitrite Urine Bilirubin Urine Urobilinogen Ur Leukocyte Esterase Urine WBC (Auto) Urine RBC (Auto) Urine Casts (Auto) U Epithel Cells (Auto) Urine Bacteria (Auto) Stool Occult Blood Negative Salicylates Opiates Screen Methadone Screen Acetaminophen Barbiturate Screen Phencyclidine Screen Ur Amphetamines Screen MDMA (Ecstasy) Screen Benzodiazepines Screen Cocaine Screen U Marijuana (THC) Screen Alcohol, Quantitative Influenza A (Rapid) Influenza B (Rapid) 09/19/19 09/19/19 09/20/19 21:30 22:45 02:00 WBC RBC Hgb Hct MCV MCH MCHC RDW Plt Count MPV Absolute Neuts (auto) Neutrophils % Neutrophils % (Manual) Band Neutrophils % Lymphocytes % Lymphocytes % (Manual) Monocytes % Monocytes % (Manual) Eosinophils % Eosinophils % (Manual) Basophils % Basophils % (Manual) Myelocytes % (Man) Promyelocytes % (Man) Blast Cells % (Manual) Nucleated RBC % Metamyelocytes Anticoagulation Therapy No Result Required. Puncture Site Right radial ABG pH 7.00 L* ABG pCO2 at Pt Temp 23.5 L ABG pO2 at Pt Temp 80.0 ABG HCO3 5.5 L ABG O2 Sat (Measured) 92.3 L ABG O2 Content No Result Required. ABG Base Excess -24.0 L Zack Test Positive VBG pH 6.95 L* POC VBG pCO2 28.7 L POC VBG pO2 54.2 H VBG HCO3 6.0 L VBG O2 Sat (Justice) 81.3 H VBG Base Excess -24.2 L Carboxyhemoglobin No Result Required. Methemoglobin 1.3 O2 Delivery Device No Result Required. Oxygen Flow Rate No Result Required. Vent Mode Room temp Vent Rate No Result Required. Mechanical Rate No Result Required. Pressure Support Vent No Result Required. Sodium Potassium Chloride Carbon Dioxide Anion Gap BUN Creatinine Est GFR (CKD-EPI)AfAm Est GFR (CKD-EPI)NonAf POC Glucometer Random Glucose Lactic Acid Calcium Phosphorus Magnesium Total Bilirubin AST ALT Alkaline Phosphatase Ammonia Troponin I B-Natriuretic Peptide Total Protein Albumin Vitamin B12 TSH Urine Color Urine Appearance Urine pH Ur Specific [place] Urine Protein Urine Glucose (UA) Urine Ketones Urine Blood Urine Nitrite Urine Bilirubin Urine Urobilinogen Ur Leukocyte Esterase Urine WBC (Auto) Urine RBC (Auto) Urine Casts (Auto) U Epithel Cells (Auto) Urine Bacteria (Auto) Stool Occult Blood Salicylates Opiates Screen Negative Methadone Screen Negative Acetaminophen Barbiturate Screen Negative Phencyclidine Screen Negative Ur Amphetamines Screen Negative MDMA (Ecstasy) Screen Negative Benzodiazepines Screen Negative Cocaine Screen Negative U Marijuana (THC) Screen Negative Alcohol, Quantitative Influenza A (Rapid) Influenza B (Rapid) 09/20/19 09/20/19 09/20/19 02:00 04:30 05:56 WBC RBC Hgb Hct MCV MCH MCHC RDW Plt Count MPV Absolute Neuts (auto) Neutrophils % Neutrophils % (Manual) Band Neutrophils % Lymphocytes % Lymphocytes % (Manual) Monocytes % Monocytes % (Manual) Eosinophils % Eosinophils % (Manual) Basophils % Basophils % (Manual) Myelocytes % (Man) Promyelocytes % (Man) Blast Cells % (Manual) Nucleated RBC % Metamyelocytes Anticoagulation Therapy Puncture Site ABG pH ABG pCO2 at Pt Temp ABG pO2 at Pt Temp ABG HCO3 ABG O2 Sat (Measured) ABG O2 Content ABG Base Excess Zack Test VBG pH POC VBG pCO2 POC VBG pO2 VBG HCO3 VBG O2 Sat (Justice) VBG Base Excess Carboxyhemoglobin Methemoglobin O2 Delivery Device Oxygen Flow Rate Vent Mode Vent Rate Mechanical Rate Pressure Support Vent Sodium 138 Potassium 6.0 H Chloride 116 H Carbon Dioxide 9 L Anion Gap 13 BUN 96.0 H Creatinine 9.3 H* Est GFR (CKD-EPI)AfAm 6.93 Est GFR (CKD-EPI)NonAf 5.98 POC Glucometer 76 Random Glucose 63 L Lactic Acid Calcium 7.4 L Phosphorus Magnesium Total Bilirubin 0.2 AST 16 ALT 15 Alkaline Phosphatase 168 H Ammonia Troponin I B-Natriuretic Peptide Total Protein 5.9 L Albumin 3.1 L Vitamin B12 TSH Urine Color Yellow Urine Appearance Cloudy Urine pH 5.0 D Ur Specific [place] 1.018 Urine Protein 3+ H Urine Glucose (UA) Trace Urine Ketones Negative Urine Blood 2+ H Urine Nitrite Negative Urine Bilirubin Negative Urine Urobilinogen 0.2 Ur Leukocyte Esterase 1+ H Urine WBC (Auto) 113 Urine RBC (Auto) 11 Urine Casts (Auto) 50 U Epithel Cells (Auto) 0.2 Urine Bacteria (Auto) 4.6 Stool Occult Blood Salicylates Opiates Screen Methadone Screen Acetaminophen Barbiturate Screen Phencyclidine Screen Ur Amphetamines Screen MDMA (Ecstasy) Screen Benzodiazepines Screen Cocaine Screen U Marijuana (THC) Screen Alcohol, Quantitative Influenza A (Rapid) Influenza B (Rapid) Intake & Output 09/17/19 09/18/19 09/19/19 09/20/19 23:59 23:59 23:59 23:59 Intake Total 500 Output Total 700 Balance -200 Weight 117.934 kg 98.475 kg Current Medications Generic Name Dose Route Start Last Admin Trade Name Julee PRN Reason Stop Dose Admin Chlorhexidine Gluconate 1 applic 09/20/19 22:00 Hibiclens For Decolonization - TP HS JESUS Sodium Chloride 250 mls @ 3,000 mls/hr 09/20/19 06:10 Normal Saline - IV 09/21/19 06:10 PRN PRN Hypotension during Dialysis Mupirocin 1 applic 09/20/19 10:00 Bactroban Ointment (For Decolonization) - NS 09/25/19 09:59 BID JESUS Sodium Bicarbonate 4.2 meq 09/19/19 22:45 09/19/19 22:51 Sodium Bicarbonate 4.2% - IVPUSH 09/20/19 22:46 4.2 meq ONCE JESUS Administration Imaging - Results Chest X-ray: Image Reviewed Cat Scan: Image Reviewed EKG: Image Reviewed Problem List - Problems (1) Acute renal failure (ARF) Code(s): N17.9 - ACUTE KIDNEY FAILURE, UNSPECIFIED (2) Acute metabolic encephalopathy Code(s): G93.41 - METABOLIC ENCEPHALOPATHY (3) Diabetes Code(s): E11.9 - TYPE 2 DIABETES MELLITUS WITHOUT COMPLICATIONS (4) HTN (hypertension) Code(s): I10 - ESSENTIAL (PRIMARY) HYPERTENSION Assessment/Plan This is a 48 y/o man with a PMHx of IDDM (noncompliant w/ medications), GERD, HTN, Left BKA, Gastroparesis, UGIB, R -TKR, R forearm spider bite (requiring graft from the R thigh), Former Alcohol Abuse (quit 2 years ago). Admitted to ICU for Acute Renal Failure, Acute Metabolic Encephalopathy, Acute metabolic Acidosis for further evaluation of their emergent condition Plan: See Problem List Admit ICU Cardiac monitoring Appreciate Nephrology consult- per ED resident Dr Dumont aware Appreciate Pulm/CC Consult Appreciate Neurology consult Serial BMPs Monitor CBC Seizure precautions Aspiration Precautions NPO Maintain MAP> 65 Bicarb to improve PH Titrate ABGs Replete lytes prn DVT ppx- SCDs, Heparin SQ Dispo: Requires Inpatient Care Visit type - Emergency Visit Emergency Visit: Yes ED Registration Date: 09/19/19 Care time: The patient presented to the Emergency Department on the above date and was hospitalized for further evaluation of their emergent condition. - New Patient This patient is new to me today: Yes Date on this admission: 09/19/19 - Critical Care Critical Care patient: Yes Total Critical Care Time (in minutes): 35 Critical Care Statement: The care of this patient involved high complexity decision making to prevent further life threatening deterioration of the patient 's condition and/or to evaluate & treat vital organ system(s) failure or risk of failure.
[2019-09-20] MEDS ORDERED: MIDAZOLAM HCL 2 MG/2 ML SINGLE DOSE VIAL IVPUSH ONE (00:16)
--- NOTE | 2019-09-20 00:19 | CONSULT ---
Consultation: REQUESTING PROVIDER: CONSULT REQUEST: We have been asked to medically evaluate this patient for (specify). metabolic and acute on chronic kidney failure HISTORY OF PRESENT ILLNESS: Hx primarily obtained from chart review and from sign out by ED Resident. 48 M with h/o IDDM (noncompliant w/ medications), GERD, HTN, left BKA, gastroparesis, UGIB, R TKR, R forearm spider bite requiring graft from the R thigh, prior alcoholic quit 2 years ago who presents with progressive confusion for the past 4 days and associated with R thigh and facial swelling. reports the patient was most confused today when he didn't know where he was despite being at home and she brought him to the ER. She seems to link all his symptoms after he went to a new gym in [place]. She denies the patient having a history of autism, underlying MR or any developmental delay. She denies fever, diarrhea, chest pain or shortness of breath but notes that he had 1x nbnb emesis. fingerstick en route 77 : Doretha [phone] Attempted to contact the . No response. REVIEW OF SYSTEMS: unable to obtain as pt. seems confused CONSTITUTIONAL: Absent: fever, chills, diaphoresis, generalized weakness, malaise, loss of appetite, weight change HEENT: Absent: rhinorrhea, nasal congestion, throat pain, throat swelling, difficulty swallowing, mouth swelling, ear pain, eye pain, visual changes CARDIOVASCULAR: Absent: chest pain, syncope, palpitations, irregular heart rate, lighthead edness, peripheral edema RESPIRATORY: Absent: cough, shortness of breath, dyspnea with exertion, orthopnea, wheezing, stridor, hemoptysis GASTROINTESTINAL: Absent: abdominal pain, abdominal distension, nausea, vomiting, diarrhea, constipation, melena, hematochezia GENITOURINARY: Absent: dysuria, frequency, urgency, hesitancy, hematuria, flank pain, genital pain MUSCULOSKELETAL: Absent: myalgia, arthralgia, joint swelling, back pain, neck pain SKIN: Absent: rash, itching, pallor HEMATOLOGIC/IMMUNOLOGIC: Absent: easy bleeding, easy bruising, lymphadenopathy, frequent infections ENDOCRINE: Absent: unexplained weight gain, unexplained weight loss, heat intolerance, cold intolerance NEUROLOGIC: Absent: headache, focal weakness or paresthesias, dizziness, unsteady gait, seizure, mental status changes, bladder or bowel incontinence PSYCHIATRIC: Absent: anxiety, depression, suicidal or homicidal ideation, hallucinations. PHYSICAL EXAMINATION Vital Signs - 24 hr 09/19/19 20:35 Temperature 97 F L Pulse Rate 90 Respiratory 20 Rate Blood Pressure 150/99 O2 Sat by Pulse 99 Oximetry (%) GENERAL: Awake, alert, communicating but seems confused.obese HEAD: Normal with no signs of trauma. EYES: Pupils equal, round , extraocular movements intact, sclera anicteric, conjunctiva clear. No lid lag. EARS, NOSE, THROAT: Ears normal, nares patent, oropharynx clear without exudates. Moist mucous membranes. NECK: Normal range of motion, supple without lymphadenopathy, JVD, or masses. LUNGS: Breath sounds equal, clear to auscultation bilaterally. No wheezes, and no crackles. No accessory muscle use. HEART: Regular rate and rhythm, normal S1 and S2 without murmur, rub or gallop. ABDOMEN: Soft. obese abdomen MUSCULOSKELETAL: Normal range of motion at all joints. No bony deformities or tenderness. No CVA tenderness. EXTREMITIES: left BKA with prosthesis. 1+ edema on RLE extending to the garcia. NEUROLOGICAL: Cranial nerves II-XII intact. PSYCHIATRIC: Cooperative. Good eye contact. Somnolent SKIN: scar on right forearm from skin graft. Laboratory Results - last 24 hr 09/19/19 09/19/19 09/19/19 20:54 21:30 21:30 WBC 11.7 H RBC 2.63 L Hgb 7.6 L Hct 24.9 L D MCV 94.7 MCH 28.9 MCHC 30.5 L RDW 17.3 H Plt Count 226 D MPV 9.4 D Absolute Neuts (auto) 9.4 H Neutrophils % 79.9 Neutrophils % (Manual) 80.0 Band Neutrophils % 2.0 Lymphocytes % 9.2 D Lymphocytes % (Manual) 10.0 D Monocytes % 7.1 Monocytes % (Manual) 4 D Eosinophils % 3.1 D Eosinophils % (Manual) 1.0 Basophils % 0.7 D Basophils % (Manual) 0.0 Myelocytes % (Man) 0 Promyelocytes % (Man) 0 Blast Cells % (Manual) 0 Nucleated RBC % 1 H Metamyelocytes 3 H Anticoagulation Therapy Puncture Site ABG pH ABG pCO2 at Pt Temp ABG pO2 at Pt Temp ABG HCO3 ABG O2 Sat (Measured) ABG O2 Content ABG Base Excess Zack Test VBG pH POC VBG pCO2 POC VBG pO2 VBG HCO3 VBG O2 Sat (Justice) VBG Base Excess Carboxyhemoglobin Methemoglobin O2 Delivery Device Oxygen Flow Rate Vent Mode Vent Rate Mechanical Rate Pressure Support Vent Sodium Potassium Chloride Carbon Dioxide Anion Gap BUN Creatinine Est GFR (CKD-EPI)AfAm Est GFR (CKD-EPI)NonAf POC Glucometer 94 Random Glucose Lactic Acid Calcium Phosphorus Magnesium Total Bilirubin AST ALT Alkaline Phosphatase Ammonia Troponin I B-Natriuretic Peptide Total Protein Albumin Vitamin B12 TSH Stool Occult Blood Salicylates Acetaminophen Alcohol, Quantitative Influenza A (Rapid) Negative Influenza B (Rapid) Negative 09/19/19 09/19/19 09/19/19 21:30 21:30 21:30 WBC RBC Hgb Hct MCV MCH MCHC RDW Plt Count MPV Absolute Neuts (auto) Neutrophils % Neutrophils % (Manual) Band Neutrophils % Lymphocytes % Lymphocytes % (Manual) Monocytes % Monocytes % (Manual) Eosinophils % Eosinophils % (Manual) Basophils % Basophils % (Manual) Myelocytes % (Man) Promyelocytes % (Man) Blast Cells % (Manual) Nucleated RBC % Metamyelocytes Anticoagulation Therapy Puncture Site ABG pH ABG pCO2 at Pt Temp ABG pO2 at Pt Temp ABG HCO3 ABG O2 Sat (Measured) ABG O2 Content ABG Base Excess Zack Test VBG pH POC VBG pCO2 POC VBG pO2 VBG HCO3 VBG O2 Sat (Justice) VBG Base Excess Carboxyhemoglobin Methemoglobin O2 Delivery Device Oxygen Flow Rate Vent Mode Vent Rate Mechanical Rate Pressure Support Vent Sodium 137 Potassium 6.0 H Chloride 115 H Carbon Dioxide 8 L Anion Gap 13 BUN 95.4 H Creatinine 9.2 H* Est GFR (CKD-EPI)AfAm 7.02 Est GFR (CKD-EPI)NonAf 6.06 POC Glucometer Random Glucose 100 Lactic Acid Calcium 7.3 L Phosphorus 8.2 H Magnesium 2.2 Total Bilirubin 0.2 AST 17 ALT 16 Alkaline Phosphatase 180 H Ammonia Troponin I < 0.02 B-Natriuretic Peptide 78425.3 H Total Protein 6.2 L Albumin 3.2 L Vitamin B12 368 TSH 4.26 H D Stool Occult Blood Salicylates < 1.7 L Acetaminophen <2.0 Alcohol, Quantitative < 3 Influenza A (Rapid) Influenza B (Rapid) 09/19/19 09/19/19 09/19/19 21:30 21:30 21:30 WBC RBC Hgb Hct MCV MCH MCHC RDW Plt Count MPV Absolute Neuts (auto) Neutrophils % Neutrophils % (Manual) Band Neutrophils % Lymphocytes % Lymphocytes % (Manual) Monocytes % Monocytes % (Manual) Eosinophils % Eosinophils % (Manual) Basophils % Basophils % (Manual) Myelocytes % (Man) Promyelocytes % (Man) Blast Cells % (Manual) Nucleated RBC % Metamyelocytes Anticoagulation Therapy Puncture Site ABG pH ABG pCO2 at Pt Temp ABG pO2 at Pt Temp ABG HCO3 ABG O2 Sat (Measured) ABG O2 Content ABG Base Excess Zack Test VBG pH POC VBG pCO2 POC VBG pO2 VBG HCO3 VBG O2 Sat (Justice) VBG Base Excess Carboxyhemoglobin Methemoglobin O2 Delivery Device Oxygen Flow Rate Vent Mode Vent Rate Mechanical Rate Pressure Support Vent Sodium Potassium Chloride Carbon Dioxide Anion Gap BUN Creatinine Est GFR (CKD-EPI)AfAm Est GFR (CKD-EPI)NonAf POC Glucometer Random Glucose Lactic Acid 0.5 Calcium Phosphorus Magnesium Total Bilirubin AST ALT Alkaline Phosphatase Ammonia 31.80 Troponin I B-Natriuretic Peptide Total Protein Albumin Vitamin B12 TSH Stool Occult Blood Negative Salicylates Acetaminophen Alcohol, Quantitative Influenza A (Rapid) Influenza B (Rapid) 09/19/19 09/19/19 21:30 22:45 WBC RBC Hgb Hct MCV MCH MCHC RDW Plt Count MPV Absolute Neuts (auto) Neutrophils % Neutrophils % (Manual) Band Neutrophils % Lymphocytes % Lymphocytes % (Manual) Monocytes % Monocytes % (Manual) Eosinophils % Eosinophils % (Manual) Basophils % Basophils % (Manual) Myelocytes % (Man) Promyelocytes % (Man) Blast Cells % (Manual) Nucleated RBC % Metamyelocytes Anticoagulation Therapy No Result Required. Puncture Site Right radial ABG pH 7.00 L* ABG pCO2 at Pt Temp 23.5 L ABG pO2 at Pt Temp 80.0 ABG HCO3 5.5 L ABG O2 Sat (Measured) 92.3 L ABG O2 Content No Result Required. ABG Base Excess -24.0 L Zack Test Positive VBG pH 6.95 L* POC VBG pCO2 28.7 L POC VBG pO2 54.2 H VBG HCO3 6.0 L VBG O2 Sat (Justice) 81.3 H VBG Base Excess -24.2 L Carboxyhemoglobin No Result Required. Methemoglobin 1.3 O2 Delivery Device No Result Required. Oxygen Flow Rate No Result Required. Vent Mode Room temp Vent Rate No Result Required. Mechanical Rate No Result Required. Pressure Support Vent No Result Required. Sodium Potassium Chloride Carbon Dioxide Anion Gap BUN Creatinine Est GFR (CKD-EPI)AfAm Est GFR (CKD-EPI)NonAf POC Glucometer Random Glucose Lactic Acid Calcium Phosphorus Magnesium Total Bilirubin AST ALT Alkaline Phosphatase Ammonia Troponin I B-Natriuretic Peptide Total Protein Albumin Vitamin B12 TSH Stool Occult Blood Salicylates Acetaminophen Alcohol, Quantitative Influenza A (Rapid) Influenza B (Rapid) Active Medications Generic Name Dose Route Start Last Admin Trade Name Freq PRN Reason Stop Dose Admin Chlorhexidine Gluconate 1 applic 09/20/19 22:00 Hibiclens For Decolonization - TP HS JESUS Folic Acid 1 mg/ Thiamine HCl 1,000 mls @ 125 mls/hr 09/19/19 21:40 09/19/19 22:33 100 mg/ Multivitamins/Minerals IVPB 09/20/19 05:39 125 mls/hr 10 ml/ Sodium Chloride ONCE ONE Administration Mupirocin 1 applic 09/20/19 10:00 Bactroban Ointment (For Decolonization) - NS 09/25/19 09:59 BID JESUS Sodium Bicarbonate 4.2 meq 09/19/19 22:45 09/19/19 22:51 Sodium Bicarbonate 4.2% - IVPUSH 09/20/19 22:46 4.2 meq ONCE JESUS Administration ASSESSMENT/PLAN: 48 M with h/o IDDM (noncompliant w/ medications), GERD, HTN, left BKA, gastroparesis, UGIB, R TKR, R forearm spider bite requiring graft from the R thigh, prior alcoholic quit 2 years ago Neuro alert and awake. unsure of baseline mental status. Contact in a.m to verify patients baseline Head CT No evidence of hemorrhage, acute territorial infarction, mass effect, midline shift, hydrocephalus, or extra-axial collections. Mild mucoperiosteal thickening within the sphenoid,ethmoid and maxillary sinuses there is a small fluid level within the left maxillary sinus along with a moderate-sized mucous retention cyst. Complete opacification of the right mastoid air cells and near-complete opacification of the left mastoid air cells. Status post bilateral cataract surgery The calvarium is intact CV Hx of HTN confirm home medications with Ramipril listed in patients home medications. will hold Pulm Pt saturating well on room air continue to monitor CXR official read pending GI Hx of UGIB - Hgb currenlty 7.6 -monitor Renal metabolic acidosis -PH of 7.0 - received 4 bicarb pushes in the ED -Renal on board ([facility]) acute on chronic kidney disease -Creatinine of 9.2 -Pt to receive HD in ICU -trialysis catheter being placed in the ED Heme/Onc Anemia -Hgb/Hct 7.6/24.9 -Transfuse threshold below 7 MSK Left BKA with prosthesis DVT Ppx: SCD's avoid anticoagulation for now FEN F: fluids as needed E: monitor electrolytes Lines Visit type - Emergency Visit Emergency Visit: Yes ED Registration Date: 09/19/19 Care time: The patient presented to the Emergency Department on the above date and was hospitalized for further evaluation of their emergent condition. - New Patient This patient is new to me today: No - Critical Care Critical Care patient: No ATTENDING PHYSICIAN STATEMENT I saw and evaluated the patient. I reviewed the resident's note and discussed the case with the resident. I agree with the resident's findings and plan as documented. SUBJECTIVE: OBJECTIVE: ASSESSMENT AND PLAN:
[2019-09-20] MEDS ORDERED: CALCIUM GLUCONATE 10% - 1,000 MG/10 ML VIAL ONE (00:21)
[2019-09-20] MEDS ORDERED: ALBUTEROL SO4 0.083% IH SOL 2.5 MG/3 ML VIAL.NEB. NEB ONE ×2 (00:23→06:56)
[2019-09-20] MEDS ORDERED: DEXTROSE 50%-WATER - 25 GM/50 ML VIAL ONE ×2 (00:23→06:21)
[2019-09-20] MEDS ORDERED: INSULIN REGULAR HUMAN 100 UNITS/ML *VIAL ONE ×2 (00:24→00:25)
[2019-09-20] MEDS ORDERED: MIDAZOLAM HCL 2 MG/2 ML SINGLE DOSE VIAL ONE (00:25)
[2019-09-20 02:15] LABS: EPI CELLS 0.2 /HPF (0-5/HPF); HYALINE CASTS 50 /lpf (0-8); URINE APPEARANCE CLOUDY; URINE BACTERIA 4.6 /hpf (NEGATIVE); URINE BILIRUBIN NEGATIVE (NEGATIVE); URINE COLOR YELLOW; URINE GLUCOSE (UA) TRACE (NEGATIVE); URINE KETONE NEGATIVE (NEGATIVE); URINE LEUK ESTERASE 1+ (NEGATIVE); URINE NITRITE NEGATIVE (NEGATIVE); URINE PROTEIN 3+ (NEGATIVE); URINE RBC 11 /hpf (0-4); URINE UROBILINOGEN 0.2 mg/dL (0.2-1.0); URINE WBC 113 /hpf (0-5)
[2019-09-20 02:20] LABS: COCAINE, UR NEGATIVE ng/ml (CUTOFF=300); METHADONE, UR NEGATIVE ng/ml (CUTOFF=300); OPIATES, URI NEGATIVE ng/ml (CUTOFF=300); PHENCYCLIDINE,URINE NEGATIVE ng/ml (CUTOFF=25); URINE AMPHETAMINES NEGATIVE ng/ml (CUTOFF=500); URINE BARBITURATES NEGATIVE ng/ml (CUTOFF=200); URINE BENZODIAZEPINES NEGATIVE ng/ml (CUTOFF=200)
[2019-09-20] MEDS ORDERED: SODIUM BICARBONATE 8.4% 50 MEQ/50 ML DISP.SYRIN IVPUSH ONE (03:05)
[2019-09-20] MEDS ORDERED: SODIUM BICARBONATE 8.4% 50 MEQ/50 ML VIAL IVPUSH ONE ×2 (03:45→05:51)
[2019-09-20 05:21] LABS: ALBUMIN 3.1 g/dl (3.4-5.0); BILIRUBIN,TOTAL 0.2 mg/dL (0.2-1); CALCIUM 7.4 mg/dL (8.5-10.1); TOT PROT 5.9 g/dl (6.4-8.2)
[2019-09-20 05:25] LABS: CREATININE 9.3 mg/dL (0.55-1.3)
[2019-09-20] MEDS ORDERED: ALBUTEROL SO4 0.5 % INH SOLN 2.5 MG/0.5 ML VIAL.NEB. NEB ONE (05:44)
[2019-09-20] MEDS ORDERED: CALCIUM GLUCONATE 10% - 1,000 MG/10 ML VIAL IVPUSH ONE (05:44)
[2019-09-20] MEDS ORDERED: DEXTROSE 50%-WATER - 25 GM/50 ML VIAL IVPUSH ONE ×2 (05:45→06:15)
[2019-09-20] MEDS ORDERED: INSULIN REGULAR HUMAN 100 UNITS/ML *VIAL IVPUSH ONE (05:45)
[2019-09-20] MEDS ORDERED: FUROSEMIDE 40 MG/4 ML INJECTABLE VIAL IVPUSH ONE (06:06)
[2019-09-20] MEDS ORDERED: SODIUM POLYSTYRENE SULFONATE 15 GM/60 ML BOTTLE RC ONE (06:07)
[2019-09-20] MEDS ORDERED: SODIUM CHLORIDE 250 ML IV PRN (06:10)
--- NOTE | 2019-09-20 06:30 | PN ---
Progress Note (short form) - Note Progress Note: Reviewed chest xray post trialysis catheter insertion. No obvious hemothorax. Line appears to be in the left innominate/ SVC junction. Fluids already running. Line may be used for hemodialysis
[2019-09-20 07:09] LABS: ALLENS TEST POSITIVE
[2019-09-20 07:12] LABS: ARTERIAL BLD GAS O2 SATURATION 95.7 % (95-98); ARTERIAL BLOOD GAS BASE EXCESS -24.2 meq/l (-2-2)
[2019-09-20 07:21] LABS: ARTERIAL BLOOD GAS PO2 106 mmHg (80-100)
[2019-09-20 07:25] LABS: ARTERIAL BLOOD GAS pH 6.99 (7.35-7.45)
--- NOTE | 2019-09-20 09:14 | PN ---
Progress Note, Physician History of Present Illness: 48 M with h/o IDDM (noncompliant w/ medications), GERD, HTN, left BKA, gastroparesis, UGIB, R TKR, R forearm spider bite requiring graft from the R thigh, prior alcoholic quit 2 years ago who presents with progressive confusion for the past 4 days and associated with R thigh and facial swelling. reports the patient was most confused today when he didn't know where he was despite being at home and she brought him to the ER. She states all his symptoms after he went to a new gym in [place]. - Current Medication List Current Medications: Active Medications Chlorhexidine Gluconate (Hibiclens For Decolonization -) 1 applic TP HS JESUS Sodium Chloride (Normal Saline -) 250 mls @ 3,000 mls/hr IV PRN PRN PRN Reason: Hypotension during Dialysis Stop: 09/21/19 06:10 Mupirocin (Bactroban Ointment (For Decolonization) -) 1 applic NS BID JESUS Stop: 09/25/19 09:59 Sodium Bicarbonate (Sodium Bicarbonate 4.2% -) 4.2 meq IVPUSH ONCE JESUS Stop: 09/20/19 22:46 Last Admin: 09/19/19 22:51 Dose: 4.2 meq - Objective Vital Signs: Vital Signs Temperature 98.2 F 09/20/19 07:05 Pulse Rate 99 H 09/20/19 08:10 Respiratory Rate 24 H 09/20/19 08:10 Blood Pressure 156/71 09/20/19 08:10 O2 Sat by Pulse Oximetry (%) 97 09/20/19 03:28 Cardiovascular: Yes: S1, S2 Respiratory: Yes: Regular, CTA Bilaterally Gastrointestinal: Yes: Normal Bowel Sounds, Soft Edema: Yes Neurological: Yes: Lethargy Labs: CBC, BMP 09/19/19 21:30 09/20/19 04:30 Problem List - Problems (1) Acute metabolic encephalopathy Assessment/Plan: maybe due to uremia no obvious infections cultures done--ID consult Neuro consult ct head sinus ds Code(s): G93.41 - METABOLIC ENCEPHALOPATHY (2) Acute renal failure (ARF) Assessment/Plan: Dialysis per renal--initiated monitor labs Code(s): N17.9 - ACUTE KIDNEY FAILURE, UNSPECIFIED (3) Diabetes Assessment/Plan: bgm and ss Code(s): E11.9 - TYPE 2 DIABETES MELLITUS WITHOUT COMPLICATIONS (4) HTN (hypertension) Assessment/Plan: monitor Code(s): I10 - ESSENTIAL (PRIMARY) HYPERTENSION (5) Acidosis Assessment/Plan: bicarb given monitor Code(s): E87.2 - ACIDOSIS
--- NOTE | 2019-09-20 10:12 | PN ---
Teaching Attending Note Name of Resident: Danilela Denton ATTENDING PHYSICIAN STATEMENT I saw and evaluated the patient. I reviewed the resident's note and discussed the case with the resident. I agree with the resident's findings and plan as documented. SUBJECTIVE: Patient seen and examined in the ICU. Lethargic but arousable. Mildly tachypneic on VM O2. Currently on acute HD. pH noted: 6.9 Intake & Output 09/17/19 09/18/19 09/19/19 09/20/19 23:59 23:59 23:59 23:59 Intake Total 700 Output Total 700 Balance 0 Weight 260 lb 217 lb 1.6 oz Last Vital Signs Temp Pulse Resp BP Pulse Ox 98.2 F 101 H 14 166/76 97 09/20/19 07:05 09/20/19 09:40 09/20/19 09:40 09/20/19 09:40 09/20/19 03:28 Active Medications Chlorhexidine Gluconate (Hibiclens For Decolonization -) 1 applic TP HS JESUS Sodium Chloride (Normal Saline -) 250 mls @ 3,000 mls/hr IV PRN PRN PRN Reason: Hypotension during Dialysis Stop: 09/21/19 06:10 Mupirocin (Bactroban Ointment (For Decolonization) -) 1 applic NS BID JESUS Stop: 09/25/19 09:59 Sodium Bicarbonate (Sodium Bicarbonate 4.2% -) 4.2 meq IVPUSH ONCE JESUS Stop: 09/20/19 22:46 Last Admin: 09/19/19 22:51 Dose: 4.2 meq GENERAL: Lethargic but arousable, mildly tachypneic HEAD: Normal with no signs of trauma. EYES: Pupils equal, round , extraocular movements intact, sclera anicteric, conjunctiva clear. No lid lag. EARS, NOSE, THROAT: Ears normal, nares patent, oropharynx clear without exudates. Moist mucous membranes. NECK: Normal range of motion, supple without lymphadenopathy, JVD, or masses. LUNGS: Breath sounds equal, clear to auscultation bilaterally. No wheezes, and no crackles. No accessory muscle use. HEART: Regular rate and rhythm, normal S1 and S2 without murmur, rub or gallop. ABDOMEN: Soft. obese abdomen MUSCULOSKELETAL: Normal range of motion at all joints. No bony deformities or tenderness. No CVA tenderness. EXTREMITIES: left BKA with prosthesis. 1+ edema on RLE extending to the garcia. NEUROLOGICAL: Lethargic, non-focal PSYCHIATRIC: Somnolent SKIN: scar on right forearm from skin graft. Laboratory Results - last 24 hr 09/19/19 09/19/19 09/19/19 20:54 21:30 21:30 WBC 11.7 H RBC 2.63 L Hgb 7.6 L Hct 24.9 L D MCV 94.7 MCH 28.9 MCHC 30.5 L RDW 17.3 H Plt Count 226 D MPV 9.4 D Absolute Neuts (auto) 9.4 H Neutrophils % 79.9 Neutrophils % (Manual) 80.0 Band Neutrophils % 2.0 Lymphocytes % 9.2 D Lymphocytes % (Manual) 10.0 D Monocytes % 7.1 Monocytes % (Manual) 4 D Eosinophils % 3.1 D Eosinophils % (Manual) 1.0 Basophils % 0.7 D Basophils % (Manual) 0.0 Myelocytes % (Man) 0 Promyelocytes % (Man) 0 Blast Cells % (Manual) 0 Nucleated RBC % 1 H Metamyelocytes 3 H Anticoagulation Therapy Puncture Site ABG pH ABG pCO2 at Pt Temp ABG pO2 at Pt Temp ABG HCO3 ABG O2 Sat (Measured) ABG O2 Content ABG Base Excess Zack Test VBG pH POC VBG pCO2 POC VBG pO2 VBG HCO3 VBG O2 Sat (Justice) VBG Base Excess Carboxyhemoglobin Methemoglobin O2 Delivery Device Oxygen Flow Rate Vent Mode Vent Rate Mechanical Rate Pressure Support Vent Sodium Potassium Chloride Carbon Dioxide Anion Gap BUN Creatinine Est GFR (CKD-EPI)AfAm Est GFR (CKD-EPI)NonAf POC Glucometer 94 Random Glucose Lactic Acid Calcium Phosphorus Magnesium Total Bilirubin AST ALT Alkaline Phosphatase Ammonia Troponin I B-Natriuretic Peptide Total Protein Albumin Vitamin B12 TSH Stool Occult Blood Salicylates Acetaminophen Alcohol, Quantitative Influenza A (Rapid) Negative Influenza B (Rapid) Negative 09/19/19 09/19/19 09/19/19 21:30 21:30 21:30 WBC RBC Hgb Hct MCV MCH MCHC RDW Plt Count MPV Absolute Neuts (auto) Neutrophils % Neutrophils % (Manual) Band Neutrophils % Lymphocytes % Lymphocytes % (Manual) Monocytes % Monocytes % (Manual) Eosinophils % Eosinophils % (Manual) Basophils % Basophils % (Manual) Myelocytes % (Man) Promyelocytes % (Man) Blast Cells % (Manual) Nucleated RBC % Metamyelocytes Anticoagulation Therapy Puncture Site ABG pH ABG pCO2 at Pt Temp ABG pO2 at Pt Temp ABG HCO3 ABG O2 Sat (Measured) ABG O2 Content ABG Base Excess Zack Test VBG pH POC VBG pCO2 POC VBG pO2 VBG HCO3 VBG O2 Sat (Justice) VBG Base Excess Carboxyhemoglobin Methemoglobin O2 Delivery Device Oxygen Flow Rate Vent Mode Vent Rate Mechanical Rate Pressure Support Vent Sodium 137 Potassium 6.0 H Chloride 115 H Carbon Dioxide 8 L Anion Gap 13 BUN 95.4 H Creatinine 9.2 H* Est GFR (CKD-EPI)AfAm 7.02 Est GFR (CKD-EPI)NonAf 6.06 POC Glucometer Random Glucose 100 Lactic Acid Calcium 7.3 L Phosphorus 8.2 H Magnesium 2.2 Total Bilirubin 0.2 AST 17 ALT 16 Alkaline Phosphatase 180 H Ammonia Troponin I < 0.02 B-Natriuretic Peptide 38612.3 H Total Protein 6.2 L Albumin 3.2 L Vitamin B12 368 TSH 4.26 H D Stool Occult Blood Salicylates < 1.7 L Acetaminophen <2.0 Alcohol, Quantitative < 3 Influenza A (Rapid) Influenza B (Rapid) 09/19/19 09/19/19 09/19/19 21:30 21:30 21:30 WBC RBC Hgb Hct MCV MCH MCHC RDW Plt Count MPV Absolute Neuts (auto) Neutrophils % Neutrophils % (Manual) Band Neutrophils % Lymphocytes % Lymphocytes % (Manual) Monocytes % Monocytes % (Manual) Eosinophils % Eosinophils % (Manual) Basophils % Basophils % (Manual) Myelocytes % (Man) Promyelocytes % (Man) Blast Cells % (Manual) Nucleated RBC % Metamyelocytes Anticoagulation Therapy Puncture Site ABG pH ABG pCO2 at Pt Temp ABG pO2 at Pt Temp ABG HCO3 ABG O2 Sat (Measured) ABG O2 Content ABG Base Excess Zack Test VBG pH POC VBG pCO2 POC VBG pO2 VBG HCO3 VBG O2 Sat (Justice) VBG Base Excess Carboxyhemoglobin Methemoglobin O2 Delivery Device Oxygen Flow Rate Vent Mode Vent Rate Mechanical Rate Pressure Support Vent Sodium Potassium Chloride Carbon Dioxide Anion Gap BUN Creatinine Est GFR (CKD-EPI)AfAm Est GFR (CKD-EPI)NonAf POC Glucometer Random Glucose Lactic Acid 0.5 Calcium Phosphorus Magnesium Total Bilirubin AST ALT Alkaline Phosphatase Ammonia 31.80 Troponin I B-Natriuretic Peptide Total Protein Albumin Vitamin B12 TSH Stool Occult Blood Negative Salicylates Acetaminophen Alcohol, Quantitative Influenza A (Rapid) Influenza B (Rapid) 09/19/19 09/19/19 21:30 22:45 WBC RBC Hgb Hct MCV MCH MCHC RDW Plt Count MPV Absolute Neuts (auto) Neutrophils % Neutrophils % (Manual) Band Neutrophils % Lymphocytes % Lymphocytes % (Manual) Monocytes % Monocytes % (Manual) Eosinophils % Eosinophils % (Manual) Basophils % Basophils % (Manual) Myelocytes % (Man) Promyelocytes % (Man) Blast Cells % (Manual) Nucleated RBC % Metamyelocytes Anticoagulation Therapy No Result Required. Puncture Site Right radial ABG pH 7.00 L* ABG pCO2 at Pt Temp 23.5 L ABG pO2 at Pt Temp 80.0 ABG HCO3 5.5 L ABG O2 Sat (Measured) 92.3 L ABG O2 Content No Result Required. ABG Base Excess -24.0 L Zack Test Positive VBG pH 6.95 L* POC VBG pCO2 28.7 L POC VBG pO2 54.2 H VBG HCO3 6.0 L VBG O2 Sat (Justice) 81.3 H VBG Base Excess -24.2 L Carboxyhemoglobin No Result Required. Methemoglobin 1.3 O2 Delivery Device No Result Required. Oxygen Flow Rate No Result Required. Vent Mode Room temp Vent Rate No Result Required. Mechanical Rate No Result Required. Pressure Support Vent No Result Required. Sodium Potassium Chloride Carbon Dioxide Anion Gap BUN Creatinine Est GFR (CKD-EPI)AfAm Est GFR (CKD-EPI)NonAf POC Glucometer Random Glucose Lactic Acid Calcium Phosphorus Magnesium Total Bilirubin AST ALT Alkaline Phosphatase Ammonia Troponin I B-Natriuretic Peptide Total Protein Albumin Vitamin B12 TSH Stool Occult Blood Salicylates Acetaminophen Alcohol, Quantitative Influenza A (Rapid) Influenza B (Rapid) ASSESSMENT/PLAN: Acute Renal Failure Metabolic Encephalopathy IDDM noncompliant w/ medications GERD HTN R/O Sepsis Left BKA Gastroparesis Suspected UGIB Right TKR History of Right forearm spider bite requiring graft from the R thigh History of ETOH abuse HD per Renal Close monitoring of pH Strict I & O O2 to maintain saturation ID evaluation Hold MAYA May need Bicarbonate drip Normal transfusion thresholds Requires continued ICU monitoring Dr Iverson Critical care time spent in reviewing chart, evaluating patient and formulating plan - 36 minutes.
--- NOTE | 2019-09-20 10:43 | PN ---
Physical Exam: SUBJECTIVE: Patient seen and examined. Remains altered. Receiving dialysis this morning; will f/u post HD labs. OBJECTIVE: Vital Signs Period Temp Pulse Resp BP Sys/Monet Pulse Ox Last 24 Hr 97 F-98.2 F 80-103 13-24 103-181/49-99 97-99 GENERAL: Awake. Unable to assess mental status HEAD: Normal with no signs of trauma. HEENT: conjunctiva clear. MMM. LUNGS: CTABL. HEART: RRR. S1S2 heard no mrg ABDOMEN: Soft. Diffusely tender to palpation. + Guarding. Nondistended. + bowel sounds. EXTREMITIES: LLE BKA w/ prosthesis. RLE nonedematous no skin changes. Graft scar to RLE. SKIN: R axillary flat macular rash. Nonedematous no drainage. Laboratory Results - last 24 hr 09/19/19 09/19/19 09/19/19 20:54 21:30 21:30 WBC 11.7 H RBC 2.63 L Hgb 7.6 L Hct 24.9 L D MCV 94.7 MCH 28.9 MCHC 30.5 L RDW 17.3 H Plt Count 226 D MPV 9.4 D Absolute Neuts (auto) 9.4 H Neutrophils % 79.9 Neutrophils % (Manual) 80.0 Band Neutrophils % 2.0 Lymphocytes % 9.2 D Lymphocytes % (Manual) 10.0 D Monocytes % 7.1 Monocytes % (Manual) 4 D Eosinophils % 3.1 D Eosinophils % (Manual) 1.0 Basophils % 0.7 D Basophils % (Manual) 0.0 Myelocytes % (Man) 0 Promyelocytes % (Man) 0 Blast Cells % (Manual) 0 Nucleated RBC % 1 H Metamyelocytes 3 H Anticoagulation Therapy Puncture Site ABG pH ABG pCO2 at Pt Temp ABG pO2 at Pt Temp ABG HCO3 ABG O2 Sat (Measured) ABG O2 Content ABG Base Excess Zack Test VBG pH POC VBG pCO2 POC VBG pO2 VBG HCO3 VBG O2 Sat (Justice) VBG Base Excess Carboxyhemoglobin Methemoglobin O2 Delivery Device Oxygen Flow Rate Vent Mode Vent Rate Mechanical Rate Pressure Support Vent Sodium Potassium Chloride Carbon Dioxide Anion Gap BUN Creatinine Est GFR (CKD-EPI)AfAm Est GFR (CKD-EPI)NonAf POC Glucometer 94 Random Glucose Lactic Acid Calcium Phosphorus Magnesium Total Bilirubin AST ALT Alkaline Phosphatase Ammonia Troponin I B-Natriuretic Peptide Total Protein Albumin Vitamin B12 TSH Urine Color Urine Appearance Urine pH Ur Specific [place] Urine Protein Urine Glucose (UA) Urine Ketones Urine Blood Urine Nitrite Urine Bilirubin Urine Urobilinogen Ur Leukocyte Esterase Urine WBC (Auto) Urine RBC (Auto) Urine Casts (Auto) U Epithel Cells (Auto) Urine Bacteria (Auto) Stool Occult Blood Salicylates Opiates Screen Methadone Screen Acetaminophen Barbiturate Screen Phencyclidine Screen Ur Amphetamines Screen MDMA (Ecstasy) Screen Benzodiazepines Screen Cocaine Screen U Marijuana (THC) Screen Alcohol, Quantitative Influenza A (Rapid) Negative Influenza B (Rapid) Negative 09/19/19 09/19/19 09/19/19 21:30 21:30 21:30 WBC RBC Hgb Hct MCV MCH MCHC RDW Plt Count MPV Absolute Neuts (auto) Neutrophils % Neutrophils % (Manual) Band Neutrophils % Lymphocytes % Lymphocytes % (Manual) Monocytes % Monocytes % (Manual) Eosinophils % Eosinophils % (Manual) Basophils % Basophils % (Manual) Myelocytes % (Man) Promyelocytes % (Man) Blast Cells % (Manual) Nucleated RBC % Metamyelocytes Anticoagulation Therapy Puncture Site ABG pH ABG pCO2 at Pt Temp ABG pO2 at Pt Temp ABG HCO3 ABG O2 Sat (Measured) ABG O2 Content ABG Base Excess Zack Test VBG pH POC VBG pCO2 POC VBG pO2 VBG HCO3 VBG O2 Sat (Justice) VBG Base Excess Carboxyhemoglobin Methemoglobin O2 Delivery Device Oxygen Flow Rate Vent Mode Vent Rate Mechanical Rate Pressure Support Vent Sodium 137 Potassium 6.0 H Chloride 115 H Carbon Dioxide 8 L Anion Gap 13 BUN 95.4 H Creatinine 9.2 H* Est GFR (CKD-EPI)AfAm 7.02 Est GFR (CKD-EPI)NonAf 6.06 POC Glucometer Random Glucose 100 Lactic Acid Calcium 7.3 L Phosphorus 8.2 H Magnesium 2.2 Total Bilirubin 0.2 AST 17 ALT 16 Alkaline Phosphatase 180 H Ammonia Troponin I < 0.02 B-Natriuretic Peptide 19301.3 H Total Protein 6.2 L Albumin 3.2 L Vitamin B12 368 TSH 4.26 H D Urine Color Urine Appearance Urine pH Ur Specific [place] Urine Protein Urine Glucose (UA) Urine Ketones Urine Blood Urine Nitrite Urine Bilirubin Urine Urobilinogen Ur Leukocyte Esterase Urine WBC (Auto) Urine RBC (Auto) Urine Casts (Auto) U Epithel Cells (Auto) Urine Bacteria (Auto) Stool Occult Blood Salicylates < 1.7 L Opiates Screen Methadone Screen Acetaminophen <2.0 Barbiturate Screen Phencyclidine Screen Ur Amphetamines Screen MDMA (Ecstasy) Screen Benzodiazepines Screen Cocaine Screen U Marijuana (THC) Screen Alcohol, Quantitative < 3 Influenza A (Rapid) Influenza B (Rapid) 09/19/19 09/19/19 09/19/19 21:30 21:30 21:30 WBC RBC Hgb Hct MCV MCH MCHC RDW Plt Count MPV Absolute Neuts (auto) Neutrophils % Neutrophils % (Manual) Band Neutrophils % Lymphocytes % Lymphocytes % (Manual) Monocytes % Monocytes % (Manual) Eosinophils % Eosinophils % (Manual) Basophils % Basophils % (Manual) Myelocytes % (Man) Promyelocytes % (Man) Blast Cells % (Manual) Nucleated RBC % Metamyelocytes Anticoagulation Therapy Puncture Site ABG pH ABG pCO2 at Pt Temp ABG pO2 at Pt Temp ABG HCO3 ABG O2 Sat (Measured) ABG O2 Content ABG Base Excess Zack Test VBG pH POC VBG pCO2 POC VBG pO2 VBG HCO3 VBG O2 Sat (Justice) VBG Base Excess Carboxyhemoglobin Methemoglobin O2 Delivery Device Oxygen Flow Rate Vent Mode Vent Rate Mechanical Rate Pressure Support Vent Sodium Potassium Chloride Carbon Dioxide Anion Gap BUN Creatinine Est GFR (CKD-EPI)AfAm Est GFR (CKD-EPI)NonAf POC Glucometer Random Glucose Lactic Acid 0.5 Calcium Phosphorus Magnesium Total Bilirubin AST ALT Alkaline Phosphatase Ammonia 31.80 Troponin I B-Natriuretic Peptide Total Protein Albumin Vitamin B12 TSH Urine Color Urine Appearance Urine pH Ur Specific [place] Urine Protein Urine Glucose (UA) Urine Ketones Urine Blood Urine Nitrite Urine Bilirubin Urine Urobilinogen Ur Leukocyte Esterase Urine WBC (Auto) Urine RBC (Auto) Urine Casts (Auto) U Epithel Cells (Auto) Urine Bacteria (Auto) Stool Occult Blood Negative Salicylates Opiates Screen Methadone Screen Acetaminophen Barbiturate Screen Phencyclidine Screen Ur Amphetamines Screen MDMA (Ecstasy) Screen Benzodiazepines Screen Cocaine Screen U Marijuana (THC) Screen Alcohol, Quantitative Influenza A (Rapid) Influenza B (Rapid) 09/19/19 09/19/19 09/20/19 21:30 22:45 02:00 WBC RBC Hgb Hct MCV MCH MCHC RDW Plt Count MPV Absolute Neuts (auto) Neutrophils % Neutrophils % (Manual) Band Neutrophils % Lymphocytes % Lymphocytes % (Manual) Monocytes % Monocytes % (Manual) Eosinophils % Eosinophils % (Manual) Basophils % Basophils % (Manual) Myelocytes % (Man) Promyelocytes % (Man) Blast Cells % (Manual) Nucleated RBC % Metamyelocytes Anticoagulation Therapy No Result Required. Puncture Site Right radial ABG pH 7.00 L* ABG pCO2 at Pt Temp 23.5 L ABG pO2 at Pt Temp 80.0 ABG HCO3 5.5 L ABG O2 Sat (Measured) 92.3 L ABG O2 Content No Result Required. ABG Base Excess -24.0 L Zack Test Positive VBG pH 6.95 L* POC VBG pCO2 28.7 L POC VBG pO2 54.2 H VBG HCO3 6.0 L VBG O2 Sat (Justice) 81.3 H VBG Base Excess -24.2 L Carboxyhemoglobin No Result Required. Methemoglobin 1.3 O2 Delivery Device No Result Required. Oxygen Flow Rate No Result Required. Vent Mode Room temp Vent Rate No Result Required. Mechanical Rate No Result Required. Pressure Support Vent No Result Required. Sodium Potassium Chloride Carbon Dioxide Anion Gap BUN Creatinine Est GFR (CKD-EPI)AfAm Est GFR (CKD-EPI)NonAf POC Glucometer Random Glucose Lactic Acid Calcium Phosphorus Magnesium Total Bilirubin AST ALT Alkaline Phosphatase Ammonia Troponin I B-Natriuretic Peptide Total Protein Albumin Vitamin B12 TSH Urine Color Urine Appearance Urine pH Ur Specific [place] Urine Protein Urine Glucose (UA) Urine Ketones Urine Blood Urine Nitrite Urine Bilirubin Urine Urobilinogen Ur Leukocyte Esterase Urine WBC (Auto) Urine RBC (Auto) Urine Casts (Auto) U Epithel Cells (Auto) Urine Bacteria (Auto) Stool Occult Blood Salicylates Opiates Screen Negative Methadone Screen Negative Acetaminophen Barbiturate Screen Negative Phencyclidine Screen Negative Ur Amphetamines Screen Negative MDMA (Ecstasy) Screen Negative Benzodiazepines Screen Negative Cocaine Screen Negative U Marijuana (THC) Screen Negative Alcohol, Quantitative Influenza A (Rapid) Influenza B (Rapid) 09/20/19 09/20/19 09/20/19 02:00 04:30 05:56 WBC RBC Hgb Hct MCV MCH MCHC RDW Plt Count MPV Absolute Neuts (auto) Neutrophils % Neutrophils % (Manual) Band Neutrophils % Lymphocytes % Lymphocytes % (Manual) Monocytes % Monocytes % (Manual) Eosinophils % Eosinophils % (Manual) Basophils % Basophils % (Manual) Myelocytes % (Man) Promyelocytes % (Man) Blast Cells % (Manual) Nucleated RBC % Metamyelocytes Anticoagulation Therapy Puncture Site ABG pH ABG pCO2 at Pt Temp ABG pO2 at Pt Temp ABG HCO3 ABG O2 Sat (Measured) ABG O2 Content ABG Base Excess Zack Test VBG pH POC VBG pCO2 POC VBG pO2 VBG HCO3 VBG O2 Sat (Justice) VBG Base Excess Carboxyhemoglobin Methemoglobin O2 Delivery Device Oxygen Flow Rate Vent Mode Vent Rate Mechanical Rate Pressure Support Vent Sodium 138 Potassium 6.0 H Chloride 116 H Carbon Dioxide 9 L Anion Gap 13 BUN 96.0 H Creatinine 9.3 H* Est GFR (CKD-EPI)AfAm 6.93 Est GFR (CKD-EPI)NonAf 5.98 POC Glucometer 76 Random Glucose 63 L Lactic Acid Calcium 7.4 L Phosphorus Magnesium Total Bilirubin 0.2 AST 16 ALT 15 Alkaline Phosphatase 168 H Ammonia Troponin I B-Natriuretic Peptide Total Protein 5.9 L Albumin 3.1 L Vitamin B12 TSH Urine Color Yellow Urine Appearance Cloudy Urine pH 5.0 D Ur Specific [place] 1.018 Urine Protein 3+ H Urine Glucose (UA) Trace Urine Ketones Negative Urine Blood 2+ H Urine Nitrite Negative Urine Bilirubin Negative Urine Urobilinogen 0.2 Ur Leukocyte Esterase 1+ H Urine WBC (Auto) 113 Urine RBC (Auto) 11 Urine Casts (Auto) 50 U Epithel Cells (Auto) 0.2 Urine Bacteria (Auto) 4.6 Stool Occult Blood Salicylates Opiates Screen Methadone Screen Acetaminophen Barbiturate Screen Phencyclidine Screen Ur Amphetamines Screen MDMA (Ecstasy) Screen Benzodiazepines Screen Cocaine Screen U Marijuana (THC) Screen Alcohol, Quantitative Influenza A (Rapid) Influenza B (Rapid) 09/20/19 07:00 WBC RBC Hgb Hct MCV MCH MCHC RDW Plt Count MPV Absolute Neuts (auto) Neutrophils % Neutrophils % (Manual) Band Neutrophils % Lymphocytes % Lymphocytes % (Manual) Monocytes % Monocytes % (Manual) Eosinophils % Eosinophils % (Manual) Basophils % Basophils % (Manual) Myelocytes % (Man) Promyelocytes % (Man) Blast Cells % (Manual) Nucleated RBC % Metamyelocytes Anticoagulation Therapy No Result Required. Puncture Site Right radial ABG pH 6.99 L* ABG pCO2 at Pt Temp 24.0 L ABG pO2 at Pt Temp 106 H ABG HCO3 5.4 L ABG O2 Sat (Measured) 95.7 ABG O2 Content No Result Required. ABG Base Excess -24.2 L Zack Test Positive VBG pH POC VBG pCO2 POC VBG pO2 VBG HCO3 VBG O2 Sat (Justice) VBG Base Excess Carboxyhemoglobin Methemoglobin O2 Delivery Device Room air Oxygen Flow Rate 21% Vent Mode No Result Required. Vent Rate No Result Required. Mechanical Rate No Result Required. Pressure Support Vent No Result Required. Sodium Potassium Chloride Carbon Dioxide Anion Gap BUN Creatinine Est GFR (CKD-EPI)AfAm Est GFR (CKD-EPI)NonAf POC Glucometer Random Glucose Lactic Acid Calcium Phosphorus Magnesium Total Bilirubin AST ALT Alkaline Phosphatase Ammonia Troponin I B-Natriuretic Peptide Total Protein Albumin Vitamin B12 TSH Urine Color Urine Appearance Urine pH Ur Specific [place] Urine Protein Urine Glucose (UA) Urine Ketones Urine Blood Urine Nitrite Urine Bilirubin Urine Urobilinogen Ur Leukocyte Esterase Urine WBC (Auto) Urine RBC (Auto) Urine Casts (Auto) U Epithel Cells (Auto) Urine Bacteria (Auto) Stool Occult Blood Salicylates Opiates Screen Methadone Screen Acetaminophen Barbiturate Screen Phencyclidine Screen Ur Amphetamines Screen MDMA (Ecstasy) Screen Benzodiazepines Screen Cocaine Screen U Marijuana (THC) Screen Alcohol, Quantitative Influenza A (Rapid) Influenza B (Rapid) Active Medications Generic Name Dose Route Start Last Admin Trade Name Freq PRN Reason Stop Dose Admin Chlorhexidine Gluconate 1 applic 09/20/19 22:00 Hibiclens For Decolonization - TP HS JESUS Sodium Chloride 250 mls @ 3,000 mls/hr 09/20/19 06:10 Normal Saline - IV 09/21/19 06:10 PRN PRN Hypotension during Dialysis Mupirocin 1 applic 09/20/19 10:00 Bactroban Ointment (For Decolonization) - NS 09/25/19 09:59 BID JESUS Sodium Bicarbonate 4.2 meq 09/19/19 22:45 09/19/19 22:51 Sodium Bicarbonate 4.2% - IVPUSH 09/20/19 22:46 4.2 meq ONCE JESUS Administration ASSESSMENT/PLAN: 49 y.o. M PMH IDDM, HTN, GED, gastroparesis, previous UGIB, left BKA, R thigh skin graft 2/2 R arm spider bite, EtOH abuse (quit 2 yrs ago) presenting for AMS & acute metabolic acidosis. #[employer] -remains altered -CT head: negative for acute pathology. mucous retention cyst. opacifications of mastoid air cells b/l. -given 2mg Versed on admission #CV -Hx htn; holding home ACEi #Pulm -CXR negative for acute pathology -Saturating well on 1.5L NC #Renal -L trialysis catheter placed -Blood gas show extreme acidosis pH<7; f/u repeat blood gas consider bicarb ggt pending results -S/p 4 pushes bicarb in ED -Dialysis completed this morning, f/u post dialysis labs -renal following #GI -reported episode emesis as per -latest hgb 7.1-- continue to monitor, transfusion threshold <7 -f/u coag studies -CT A/P: b/l pleural effusions & bibasilar atelectasis, small amount of ascites , subcutaneous edema #Heme/onc -f/u hemolysis w/u: LDH, retic count, cbc, bmp #ID -1 episode diarrhea reported by nurse -F/u c. diff studies & stool cultures -Hx multiple MRSA skin infections -ID consulted (Dr. Gordon) #PPX -SCD RLE; prosthesis LLE #FEN -no standing fluids -Severe hyperkalemia; s/p 4 pushes bicarb, D50, insulin push, ca gluconate -NPO #Dispo continue ICU monitoring Visit type - Emergency Visit Emergency Visit: Yes ED Registration Date: 09/19/19 Care time: The patient presented to the Emergency Department on the above date and was hospitalized for further evaluation of their emergent condition. - New Patient This patient is new to me today: Yes Date on this admission: 09/20/19 - Critical Care Critical Care patient: Yes Total Critical Care Time (in minutes): 45 Critical Care Statement: The care of this patient involved high complexity decision making to prevent further life threatening deterioration of the patient 's condition and/or to evaluate & treat vital organ system(s) failure or risk of failure. ATTENDING PHYSICIAN STATEMENT I saw and evaluated the patient. I reviewed the resident's note and discussed the case with the resident. I agree with the resident's findings and plan as documented. SUBJECTIVE: OBJECTIVE: ASSESSMENT AND PLAN:
[2019-09-20 10:58] LABS: HEMATOCRIT 21.9 % (35.4-49); HEMOGLOBIN 7.1 GM/dL (11.7-16.9); MCH 29.1 pg (25.7-33.7); MCHC 32.4 g/dl (32.0-35.9); MEAN CELL VOLUME 89.7 fl (80-96); MEAN PLT VOLUME 9.3 fl (7.5-11.1); PLATELET COUNT 219 K/MM3 (134-434); RBC 2.45 M/mm3 (4.00-5.60); RDW 16.7 % (11.9-15.9); RETICULOCYTES 2.34 % (0.5-1.5); WHITE BLOOD COUNT 9.8 K/mm3 (4.0-10.0)
--- NOTE | 2019-09-20 11:13 | CONSULT ---
Consultation: REQUESTING PROVIDER: Dr. Tobar CONSULT REQUEST: We have been asked to medically evaluate this patient for KENDRICK. HISTORY OF PRESENT ILLNESS: Patient is a 49 year old male with past medical history of T2DM (On insulin, noncompliant), GERD, HTN, gastroparesis, UGIB, left BKA, R forearm spider bite requiring skin graft from R leg, former EtOH abuse, was BIBEMS due to worsening confusion. Patient is lethargic at time of interview and unable to provide adequate history. As per patient's chart, patient was brought in by his due to worsening confusion for the past 4 days. This was accompanied by right thigh and facial swelling. Patient reported he had episodes of NBNB diarrhea in the past few days, but could not elaborate further. Patient denies any fevers, chills, headache, chest pain, SOB, urinary symptoms.At the ED, labs showed metabolic acidosis with pH of 7.0, with hyperkalemia of 6 and elevated Cr of 9.8. Four amps of bicarb was given. Head CT and CT abdomen was negative for any acute pathology. Past Medical History T2DM (On insulin) GERD HTN gastroparesis UGIB left BKA former EtOH abuse Past Surgical History Debridement of right elbow and left buttock Left BKA RLE skin graft Family History Father - DM Social History: Smoking - former smoker, quit 4 years ago Alcohol - former EtOH abuse, quit 4 years ago Illicit drugs - cocaine in the past Lives with at home Allergies: NKDA REVIEW OF SYSTEMS: CONSTITUTIONAL: Absent: fever, chills, diaphoresis, generalized weakness, malaise, loss of appetite, weight change HEENT: Absent: rhinorrhea, nasal congestion, throat pain, throat swelling, difficulty swallowing, mouth swelling, ear pain, eye pain, visual changes CARDIOVASCULAR: Absent: chest pain, syncope, palpitations, irregular heart rate, lightheadedness , peripheral edema RESPIRATORY: Absent: cough, shortness of breath, dyspnea with exertion, orthopnea, wheezing, stridor, hemoptysis GASTROINTESTINAL:Left flank/LUQ pain Absent: abdominal pain, abdominal distension, nausea, vomiting, diarrhea, constipation, melena, hematochezia GENITOURINARY: Absent: dysuria, frequency, urgency, hesitancy, hematuria, flank pain, genital pain MUSCULOSKELETAL: Absent: myalgia, arthralgia, joint swelling, back pain, neck pain SKIN: Absent: rash, itching, pallor HEMATOLOGIC/IMMUNOLOGIC: Absent: easy bleeding, easy bruising, lymphadenopathy, frequent infections ENDOCRINE: Absent: unexplained weight gain, unexplained weight loss, heat intolerance, cold intolerance NEUROLOGIC: mental status changes Absent: headache, focal weakness or paresthesias, dizziness, unsteady gait, seizure, bladder or bowel incontinence PSYCHIATRIC: Absent: anxiety, depression, suicidal or homicidal ideation, hallucinations. PHYSICAL EXAMINATION Vital Signs - 24 hr 09/19/19 09/20/19 09/20/19 20:35 02:25 03:06 Temperature 97 F L 97.5 F L Pulse Rate 90 80 Pulse Rate [ 82 Left] Respiratory 20 14 13 Rate Blood Pressure 150/99 117/52 L Blood Pressure 144/85 [Left Arm] O2 Sat by Pulse 99 97 Oximetry (%) 09/20/19 09/20/19 09/20/19 03:28 04:00 06:00 Temperature Pulse Rate 89 Pulse Rate [ Left] Respiratory 13 16 Rate Blood Pressure 113/55 L 103/49 L Blood Pressure [Left Arm] O2 Sat by Pulse 97 Oximetry (%) 09/20/19 09/20/19 09/20/19 07:05 07:10 07:40 Temperature 98.2 F Pulse Rate 89 91 H 98 H Pulse Rate [ Left] Respiratory 13 14 16 Rate Blood Pressure 146/65 163/67 137/71 Blood Pressure [Left Arm] O2 Sat by Pulse Oximetry (%) 09/20/19 09/20/19 09/20/19 08:10 08:40 09:10 Temperature Pulse Rate 99 H 100 H 101 H Pulse Rate [ Left] Respiratory 24 H 16 16 Rate Blood Pressure 156/71 164/77 169/87 Blood Pressure [Left Arm] O2 Sat by Pulse Oximetry (%) 09/20/19 09/20/19 09/20/19 09:40 10:10 10:15 Temperature Pulse Rate 101 H 103 H 99 H Pulse Rate [ Left] Respiratory 14 16 16 Rate Blood Pressure 166/76 179/79 H 181/74 H Blood Pressure [Left Arm] O2 Sat by Pulse Oximetry (%) GENERAL: Lethargic, arousable to voice. on Venti Mask. HEAD: Normal with no signs of trauma. EYES: PERRLA, EOMI, sclera anicteric, conjunctiva clear. EARS, NOSE, THROAT: Moist mucous membranes. NECK: Normal range of motion, supple. LUNGS: Breath sounds equal, clear to auscultation bilaterally. HEART: Regular rate and rhythm, normal S1 and S2 ABDOMEN: Soft, +Left flank tenderness, not distended, normoactive bowel sounds. UPPER EXTREMITIES: 2+ pulses, warm, well-perfused. LOWER EXTREMITIES: RLE: 2+ pulses, warm, well-perfused. +2 pitting edema. LLE: BKA, +tenderness on palpation NEUROLOGICAL: Lethargic, arousable to voice and touch. Follows commands. SKIN: Warm, dry, normal turgor, +scars b/l LE Laboratory Results - last 24 hr 09/19/19 09/19/19 09/19/19 20:54 21:30 21:30 WBC 11.7 H RBC 2.63 L Hgb 7.6 L Hct 24.9 L D MCV 94.7 MCH 28.9 MCHC 30.5 L RDW 17.3 H Plt Count 226 D MPV 9.4 D Absolute Neuts (auto) 9.4 H Neutrophils % 79.9 Neutrophils % (Manual) 80.0 Band Neutrophils % 2.0 Lymphocytes % 9.2 D Lymphocytes % (Manual) 10.0 D Monocytes % 7.1 Monocytes % (Manual) 4 D Eosinophils % 3.1 D Eosinophils % (Manual) 1.0 Basophils % 0.7 D Basophils % (Manual) 0.0 Myelocytes % (Man) 0 Promyelocytes % (Man) 0 Blast Cells % (Manual) 0 Nucleated RBC % 1 H Metamyelocytes 3 H Retic Count Anticoagulation Therapy Puncture Site ABG pH ABG pCO2 at Pt Temp ABG pO2 at Pt Temp ABG HCO3 ABG O2 Sat (Measured) ABG O2 Content ABG Base Excess Zack Test VBG pH POC VBG pCO2 POC VBG pO2 VBG HCO3 VBG O2 Sat (Justice) VBG Base Excess Carboxyhemoglobin Methemoglobin O2 Delivery Device Oxygen Flow Rate Vent Mode Vent Rate Mechanical Rate Pressure Support Vent Sodium Potassium Chloride Carbon Dioxide Anion Gap BUN Creatinine Est GFR (CKD-EPI)AfAm Est GFR (CKD-EPI)NonAf POC Glucometer 94 Random Glucose Lactic Acid Calcium Phosphorus Magnesium Total Bilirubin AST ALT Alkaline Phosphatase Ammonia Troponin I B-Natriuretic Peptide Total Protein Albumin Vitamin B12 TSH Urine Color Urine Appearance Urine pH Ur Specific [place] Urine Protein Urine Glucose (UA) Urine Ketones Urine Blood Urine Nitrite Urine Bilirubin Urine Urobilinogen Ur Leukocyte Esterase Urine WBC (Auto) Urine RBC (Auto) Urine Casts (Auto) U Epithel Cells (Auto) Urine Bacteria (Auto) Stool Occult Blood Salicylates Opiates Screen Methadone Screen Acetaminophen Barbiturate Screen Phencyclidine Screen Ur Amphetamines Screen MDMA (Ecstasy) Screen Benzodiazepines Screen Cocaine Screen U Marijuana (THC) Screen Alcohol, Quantitative Influenza A (Rapid) Negative Influenza B (Rapid) Negative 09/19/19 09/19/19 09/19/19 21:30 21:30 21:30 WBC RBC Hgb Hct MCV MCH MCHC RDW Plt Count MPV Absolute Neuts (auto) Neutrophils % Neutrophils % (Manual) Band Neutrophils % Lymphocytes % Lymphocytes % (Manual) Monocytes % Monocytes % (Manual) Eosinophils % Eosinophils % (Manual) Basophils % Basophils % (Manual) Myelocytes % (Man) Promyelocytes % (Man) Blast Cells % (Manual) Nucleated RBC % Metamyelocytes Retic Count Anticoagulation Therapy Puncture Site ABG pH ABG pCO2 at Pt Temp ABG pO2 at Pt Temp ABG HCO3 ABG O2 Sat (Measured) ABG O2 Content ABG Base Excess Zack Test VBG pH POC VBG pCO2 POC VBG pO2 VBG HCO3 VBG O2 Sat (Justice) VBG Base Excess Carboxyhemoglobin Methemoglobin O2 Delivery Device Oxygen Flow Rate Vent Mode Vent Rate Mechanical Rate Pressure Support Vent Sodium 137 Potassium 6.0 H Chloride 115 H Carbon Dioxide 8 L Anion Gap 13 BUN 95.4 H Creatinine 9.2 H* Est GFR (CKD-EPI)AfAm 7.02 Est GFR (CKD-EPI)NonAf 6.06 POC Glucometer Random Glucose 100 Lactic Acid Calcium 7.3 L Phosphorus 8.2 H Magnesium 2.2 Total Bilirubin 0.2 AST 17 ALT 16 Alkaline Phosphatase 180 H Ammonia Troponin I < 0.02 B-Natriuretic Peptide 74528.3 H Total Protein 6.2 L Albumin 3.2 L Vitamin B12 368 TSH 4.26 H D Urine Color Urine Appearance Urine pH Ur Specific [place] Urine Protein Urine Glucose (UA) Urine Ketones Urine Blood Urine Nitrite Urine Bilirubin Urine Urobilinogen Ur Leukocyte Esterase Urine WBC (Auto) Urine RBC (Auto) Urine Casts (Auto) U Epithel Cells (Auto) Urine Bacteria (Auto) Stool Occult Blood Salicylates < 1.7 L Opiates Screen Methadone Screen Acetaminophen <2.0 Barbiturate Screen Phencyclidine Screen Ur Amphetamines Screen MDMA (Ecstasy) Screen Benzodiazepines Screen Cocaine Screen U Marijuana (THC) Screen Alcohol, Quantitative < 3 Influenza A (Rapid) Influenza B (Rapid) 09/19/19 09/19/19 09/19/19 21:30 21:30 21:30 WBC RBC Hgb Hct MCV MCH MCHC RDW Plt Count MPV Absolute Neuts (auto) Neutrophils % Neutrophils % (Manual) Band Neutrophils % Lymphocytes % Lymphocytes % (Manual) Monocytes % Monocytes % (Manual) Eosinophils % Eosinophils % (Manual) Basophils % Basophils % (Manual) Myelocytes % (Man) Promyelocytes % (Man) Blast Cells % (Manual) Nucleated RBC % Metamyelocytes Retic Count Anticoagulation Therapy Puncture Site ABG pH ABG pCO2 at Pt Temp ABG pO2 at Pt Temp ABG HCO3 ABG O2 Sat (Measured) ABG O2 Content ABG Base Excess Zack Test VBG pH POC VBG pCO2 POC VBG pO2 VBG HCO3 VBG O2 Sat (Justice) VBG Base Excess Carboxyhemoglobin Methemoglobin O2 Delivery Device Oxygen Flow Rate Vent Mode Vent Rate Mechanical Rate Pressure Support Vent Sodium Potassium Chloride Carbon Dioxide Anion Gap BUN Creatinine Est GFR (CKD-EPI)AfAm Est GFR (CKD-EPI)NonAf POC Glucometer Random Glucose Lactic Acid 0.5 Calcium Phosphorus Magnesium Total Bilirubin AST ALT Alkaline Phosphatase Ammonia 31.80 Troponin I B-Natriuretic Peptide Total Protein Albumin Vitamin B12 TSH Urine Color Urine Appearance Urine pH Ur Specific [place] Urine Protein Urine Glucose (UA) Urine Ketones Urine Blood Urine Nitrite Urine Bilirubin Urine Urobilinogen Ur Leukocyte Esterase Urine WBC (Auto) Urine RBC (Auto) Urine Casts (Auto) U Epithel Cells (Auto) Urine Bacteria (Auto) Stool Occult Blood Negative Salicylates Opiates Screen Methadone Screen Acetaminophen Barbiturate Screen Phencyclidine Screen Ur Amphetamines Screen MDMA (Ecstasy) Screen Benzodiazepines Screen Cocaine Screen U Marijuana (THC) Screen Alcohol, Quantitative Influenza A (Rapid) Influenza B (Rapid) 09/19/19 09/19/19 09/20/19 21:30 22:45 02:00 WBC RBC Hgb Hct MCV MCH MCHC RDW Plt Count MPV Absolute Neuts (auto) Neutrophils % Neutrophils % (Manual) Band Neutrophils % Lymphocytes % Lymphocytes % (Manual) Monocytes % Monocytes % (Manual) Eosinophils % Eosinophils % (Manual) Basophils % Basophils % (Manual) Myelocytes % (Man) Promyelocytes % (Man) Blast Cells % (Manual) Nucleated RBC % Metamyelocytes Retic Count Anticoagulation Therapy No Result Required. Puncture Site Right radial ABG pH 7.00 L* ABG pCO2 at Pt Temp 23.5 L ABG pO2 at Pt Temp 80.0 ABG HCO3 5.5 L ABG O2 Sat (Measured) 92.3 L ABG O2 Content No Result Required. ABG Base Excess -24.0 L Zack Test Positive VBG pH 6.95 L* POC VBG pCO2 28.7 L POC VBG pO2 54.2 H VBG HCO3 6.0 L VBG O2 Sat (Justice) 81.3 H VBG Base Excess -24.2 L Carboxyhemoglobin No Result Required. Methemoglobin 1.3 O2 Delivery Device No Result Required. Oxygen Flow Rate No Result Required. Vent Mode Room temp Vent Rate No Result Required. Mechanical Rate No Result Required. Pressure Support Vent No Result Required. Sodium Potassium Chloride Carbon Dioxide Anion Gap BUN Creatinine Est GFR (CKD-EPI)AfAm Est GFR (CKD-EPI)NonAf POC Glucometer Random Glucose Lactic Acid Calcium Phosphorus Magnesium Total Bilirubin AST ALT Alkaline Phosphatase Ammonia Troponin I B-Natriuretic Peptide Total Protein Albumin Vitamin B12 TSH Urine Color Urine Appearance Urine pH Ur Specific [place] Urine Protein Urine Glucose (UA) Urine Ketones Urine Blood Urine Nitrite Urine Bilirubin Urine Urobilinogen Ur Leukocyte Esterase Urine WBC (Auto) Urine RBC (Auto) Urine Casts (Auto) U Epithel Cells (Auto) Urine Bacteria (Auto) Stool Occult Blood Salicylates Opiates Screen Negative Methadone Screen Negative Acetaminophen Barbiturate Screen Negative Phencyclidine Screen Negative Ur Amphetamines Screen Negative MDMA (Ecstasy) Screen Negative Benzodiazepines Screen Negative Cocaine Screen Negative U Marijuana (THC) Screen Negative Alcohol, Quantitative Influenza A (Rapid) Influenza B (Rapid) 09/20/19 09/20/19 09/20/19 02:00 04:30 05:56 WBC RBC Hgb Hct MCV MCH MCHC RDW Plt Count MPV Absolute Neuts (auto) Neutrophils % Neutrophils % (Manual) Band Neutrophils % Lymphocytes % Lymphocytes % (Manual) Monocytes % Monocytes % (Manual) Eosinophils % Eosinophils % (Manual) Basophils % Basophils % (Manual) Myelocytes % (Man) Promyelocytes % (Man) Blast Cells % (Manual) Nucleated RBC % Metamyelocytes Retic Count Anticoagulation Therapy Puncture Site ABG pH ABG pCO2 at Pt Temp ABG pO2 at Pt Temp ABG HCO3 ABG O2 Sat (Measured) ABG O2 Content ABG Base Excess Zack Test VBG pH POC VBG pCO2 POC VBG pO2 VBG HCO3 VBG O2 Sat (Justice) VBG Base Excess Carboxyhemoglobin Methemoglobin O2 Delivery Device Oxygen Flow Rate Vent Mode Vent Rate Mechanical Rate Pressure Support Vent Sodium 138 Potassium 6.0 H Chloride 116 H Carbon Dioxide 9 L Anion Gap 13 BUN 96.0 H Creatinine 9.3 H* Est GFR (CKD-EPI)AfAm 6.93 Est GFR (CKD-EPI)NonAf 5.98 POC Glucometer 76 Random Glucose 63 L Lactic Acid Calcium 7.4 L Phosphorus Magnesium Total Bilirubin 0.2 AST 16 ALT 15 Alkaline Phosphatase 168 H Ammonia Troponin I B-Natriuretic Peptide Total Protein 5.9 L Albumin 3.1 L Vitamin B12 TSH Urine Color Yellow Urine Appearance Cloudy Urine pH 5.0 D Ur Specific [place] 1.018 Urine Protein 3+ H Urine Glucose (UA) Trace Urine Ketones Negative Urine Blood 2+ H Urine Nitrite Negative Urine Bilirubin Negative Urine Urobilinogen 0.2 Ur Leukocyte Esterase 1+ H Urine WBC (Auto) 113 Urine RBC (Auto) 11 Urine Casts (Auto) 50 U Epithel Cells (Auto) 0.2 Urine Bacteria (Auto) 4.6 Stool Occult Blood Salicylates Opiates Screen Methadone Screen Acetaminophen Barbiturate Screen Phencyclidine Screen Ur Amphetamines Screen MDMA (Ecstasy) Screen Benzodiazepines Screen Cocaine Screen U Marijuana (THC) Screen Alcohol, Quantitative Influenza A (Rapid) Influenza B (Rapid) 09/20/19 09/20/19 07:00 08:50 WBC 9.8 RBC 2.45 L Hgb 7.1 L Hct 21.9 L MCV 89.7 MCH 29.1 MCHC 32.4 RDW 16.7 H Plt Count 219 MPV 9.3 Absolute Neuts (auto) Neutrophils % Neutrophils % (Manual) Band Neutrophils % Lymphocytes % Lymphocytes % (Manual) Monocytes % Monocytes % (Manual) Eosinophils % Eosinophils % (Manual) Basophils % Basophils % (Manual) Myelocytes % (Man) Promyelocytes % (Man) Blast Cells % (Manual) Nucleated RBC % Metamyelocytes Retic Count 2.34 H D Anticoagulation Therapy No Result Required. Puncture Site Right radial ABG pH 6.99 L* ABG pCO2 at Pt Temp 24.0 L ABG pO2 at Pt Temp 106 H ABG HCO3 5.4 L ABG O2 Sat (Measured) 95.7 ABG O2 Content No Result Required. ABG Base Excess -24.2 L Zack Test Positive VBG pH POC VBG pCO2 POC VBG pO2 VBG HCO3 VBG O2 Sat (Justice) VBG Base Excess Carboxyhemoglobin Methemoglobin O2 Delivery Device Room air Oxygen Flow Rate 21% Vent Mode No Result Required. Vent Rate No Result Required. Mechanical Rate No Result Required. Pressure Support Vent No Result Required. Sodium Potassium Chloride Carbon Dioxide Anion Gap BUN Creatinine Est GFR (CKD-EPI)AfAm Est GFR (CKD-EPI)NonAf POC Glucometer Random Glucose Lactic Acid Calcium Phosphorus Magnesium Total Bilirubin AST ALT Alkaline Phosphatase Ammonia Troponin I B-Natriuretic Peptide Total Protein Albumin Vitamin B12 TSH Urine Color Urine Appearance Urine pH Ur Specific [place] Urine Protein Urine Glucose (UA) Urine Ketones Urine Blood Urine Nitrite Urine Bilirubin Urine Urobilinogen Ur Leukocyte Esterase Urine WBC (Auto) Urine RBC (Auto) Urine Casts (Auto) U Epithel Cells (Auto) Urine Bacteria (Auto) Stool Occult Blood Salicylates Opiates Screen Methadone Screen Acetaminophen Barbiturate Screen Phencyclidine Screen Ur Amphetamines Screen MDMA (Ecstasy) Screen Benzodiazepines Screen Cocaine Screen U Marijuana (THC) Screen Alcohol, Quantitative Influenza A (Rapid) Influenza B (Rapid) Active Medications Generic Name Dose Route Start Last Admin Trade Name Freq PRN Reason Stop Dose Admin Chlorhexidine Gluconate 1 applic 09/20/19 22:00 Hibiclens For Decolonization - TP HS JESUS Sodium Chloride 250 mls @ 3,000 mls/hr 09/20/19 06:10 Normal Saline - IV 09/21/19 06:10 PRN PRN Hypotension during Dialysis Mupirocin 1 applic 09/20/19 10:00 Bactroban Ointment (For Decolonization) - NS 09/25/19 09:59 BID JESUS Sodium Bicarbonate 4.2 meq 09/19/19 22:45 09/19/19 22:51 Sodium Bicarbonate 4.2% - IVPUSH 09/20/19 22:46 4.2 meq ONCE JESUS Administration ASSESSMENT/PLAN: Patient is a 49 year old male with past medical history of T2DM (On insulin, noncompliant), GERD, HTN, gastroparesis, UGIB, left BKA, R forearm spider bite requiring skin graft from R leg, former EtOH abuse, was BIBEMS due to worsening confusion. At the ED, labs showed metabolic acidosis with pH of 7.0, with hyperkalemia of 6 and elevated Cr of 9.8. #Acute Metabolic Encephalopathy #NAGMA #KENDRICK on CKD -HD done today -acidosis improved after dialysis -continue monitoring p -utox negative -CTAP did not show any acute renal/pelvic pathology -renal US to evaluate kidneys and rule out obstruction -serologic/immunologic studies ordered including ANCA, [place], dsDNA, SPEP, hepatitis panel, complement levels, anti-GBM -monitor renal function -alamo in place, strict I&O -transfuse pRBC prn to keep Hgb> 7 #Hyperkalemia -K 6.1 -Insulin, D50, calcium gluconate and kayexalate given overnight. -K now 3.1 post dialysis -monitor K. Dispo: We will continue to follow the patient. Thank you for this consultative opportunity. Visit type - Emergency Visit Emergency Visit: Yes ED Registration Date: 09/19/19 Care time: The patient presented to the Emergency Department on the above date and was hospitalized for further evaluation of their emergent condition. - New Patient This patient is new to me today: Yes Date on this admission: 09/20/19 - Critical Care Critical Care patient: Yes Total Critical Care Time (in minutes): 35 Critical Care Statement: The care of this patient involved high complexity decision making to prevent further life threatening deterioration of the patient 's condition and/or to evaluate & treat vital organ system(s) failure or risk of failure. ATTENDING PHYSICIAN STATEMENT I saw and evaluated the patient. I reviewed the resident's note and discussed the case with the resident. I agree with the resident's findings and plan as documented. SUBJECTIVE: OBJECTIVE: ASSESSMENT AND PLAN:
[2019-09-20 11:53] LABS: BLOOD UREA NITROGEN 47.4 mg/dL (7-18); CREATININE 4.7 mg/dL (0.55-1.3); POTASSIUM 3.1 mmol/L (3.5-5.1)
--- NOTE | 2019-09-20 11:53 | PN ---
Progress Note (short form) - Note Progress Note: ID consult dictated 49 yo man with DM- admitted with ARF metabolic encephalopathy severe acidosis s/p first acute HD he is awake c/o severe myalgias all over everything hurts no fevers no leukocytosis prosthesis removed, no stump breakdown no sacral skin breakdown right leg is larger the left check dopplers RLE- r/o dvt would agree with blood cultures ENT to evaluate bilateral mastoid fluid observe off antibiotics will offer him HIV testing when he is more alert Problem List - Problems (1) Acute renal failure (ARF) Code(s): N17.9 - ACUTE KIDNEY FAILURE, UNSPECIFIED (2) Acute metabolic encephalopathy Code(s): G93.41 - METABOLIC ENCEPHALOPATHY
[2019-09-20 11:54] LABS: CALCIUM 7.5 mg/dL (8.5-10.1)
[2019-09-20 12:07] LABS: VENOUS PC02 33.7 mmHg (38-52); VENOUS PH 7.29 (7.31-7.41)
[2019-09-20 12:44] LABS: INR 0.96 (0.83-1.09); PROTHROMBIN TIME (PATIENT) 11.3 SEC (9.7-13.0)
[2019-09-20 12:47] LABS: ACTIVATED PTT 30.5 SECONDS (25.2-36.5)
--- NOTE | 2019-09-20 12:55 | CONS ---
INFECTIOUS DISEASE CONSULTATION DATE OF CONSULTATION: DATE OF DICTATION: 09/20/2019 HISTORY: This is a 49-year-old man with a history of diabetes, left BKA who presented to the emergency room last night with confusion. She brought him to the ER. He has not had any fevers, chest pain, or shortness of breath at home. He had 1 episode of emesis. He was noted in the ER to be in acute renal failure. He had a potassium of 6, a bicarbonate of 8, BUN of 95, and a creatinine of 9.2. He had an ABG that showed a severe metabolic acidosis with a pH of 7. He is status post his 1st acute dialysis session this morning. He complains of pain when touched all over including his arms, his abdomen, his chest, and his legs. I am asked to see him for further evaluation. Per the chart, his past medical history is notable for hypertension, hyperlipidemia, GERD, GI bleed, anemia. Several years ago he had MRSA. He has a history of diabetes. He has had amputation of his left leg. He has a right total knee replacement. He has had right forearm surgery where apparently he required a graft from his right thigh. SOCIAL HISTORY: He lives with his who brought him to the ER. He uses a prosthesis for his leg. He has apparently started working in a new gym, working out. He has a history of former alcohol use. He quit 2 years ago. ALLERGIES: He has no known drug allergies. PAST MEDICAL HISTORY: It is unclear when he last saw a doctor and when his last medical evaluation was. PHYSICAL EXAMINATION: Vital Signs: Temperature 98.2, pulse 99, blood pressure 181/74, respiratory rate 16. HEENT: He is normocephalic. His eyes are anicteric. Neck: Supple. He has no meningeal signs. Lungs: Diminished breath sounds at the bases. Heart: Regular rate and rhythm. Abdomen: Soft. He has diffuse tenderness to palpation. There is no guarding. He has no abdominal distention. Extremities: His left BKA site is well healed. There is no edema. His right leg is more indurated that his left leg. He has a well-healed right total knee replacement scar. He has no skin breakdown. DIAGNOSTIC DATA: His admission white count was 11.7, repeat this morning is 9.8. BUN 47, creatinine 4.7. Liver tests are notable for alkaline phosphatase 168. Blood cultures have been sent and are pending. Chest x-ray reveals congestion. His CT of his abdomen and pelvis is notable for bilateral pleural effusion, bibasilar atelectasis, subcutaneous edema, and some small amount of ascites. The head CT is notable for mucoperiosteal thickening of his sinuses and some bilateral mastoid air cell opacification. In summary, this is a 49-year-old man with diabetes admitted with acute renal failure of unclear etiology, severe metabolic acidosis status post his 1st acute hemodialysis. He is awake complaining of severe myalgias. There are no fevers or elevated white count. He has no skin breakdown. I would suggest we check Dopplers of his right leg to rule out DVT. Would agree with blood cultures, which have been sent. Would suggest ENT evaluate him for the head CT findings. There is nothing to suggest acute sinusitis requiring treatment at this time. Would follow up blood cultures and observe him off antibiotics. Further evaluation per Renal. THERESA ANN M.D. [id number]
--- NOTE | 2019-09-20 13:46 | EKG ---
Test Reason : Blood Pressure : / mmHG Vent. Rate : 089 BPM Atrial Rate : 089 BPM P-R Int : 080 ms QRS Dur : 072 ms QT Int : 356 ms P-R-T Axes : 000 008 076 degrees QTc Int : 433 ms SINUS RHYTHM WITH SHORT WY LOW VOLTAGE QRS NONSPECIFIC ST AND T WAVE ABNORMALITY ABNORMAL ECG Confirmed by DUKE WISEMAN MD ([id number]) on 09/20/2019 1:46:00 PM Referred By: Confirmed By:DUKE WISEMAN MD
[2019-09-20] MEDS: MUPIROCIN 2% TOPICAL OINTMENT FOR DECOLONIZATION NS SCH ×2 (15:38→21:54)
--- NOTE | 2019-09-20 15:39 | PN ---
Teaching Attending Note Name of Resident: Jossie Driver (Nephrology) ATTENDING PHYSICIAN STATEMENT I saw and evaluated the patient. I reviewed the resident's note and discussed the case with the resident. I agree with the resident's findings and plan as documented. Renal Pt is a 49 year old male with pmhx of dm, gerd, htn, left bka, gastroparesis, and gi bleed who presents with progressive confusion. He was found to be in acute renal failure and I was called to evaluate him. He does have history of developemental delay. He is unable to contribute to history. pmhx dm gerd htn bka gi bleed non compliance pshx bka, skin graft nkda social hx - hx of etoh abuse family hx non contrib Current Medications Generic Name Dose Route Start Last Admin Trade Name Freq PRN Reason Stop Dose Admin Chlorhexidine Gluconate 1 applic 09/20/19 22:00 Hibiclens For Decolonization - TP HS JESUS Sodium Chloride 250 mls @ 3,000 mls/hr 09/20/19 06:10 Normal Saline - IV 09/21/19 06:10 PRN PRN Hypotension during Dialysis Mupirocin 1 applic 09/20/19 10:00 Bactroban Ointment (For Decolonization) - NS 09/25/19 09:59 BID JESUS Sodium Bicarbonate 4.2 meq 09/19/19 22:45 09/19/19 22:51 Sodium Bicarbonate 4.2% - IVPUSH 09/20/19 22:46 4.2 meq ONCE JESUS Administration Last Vital Signs Temp Pulse Resp BP Pulse Ox 98.2 F 99 H 16 181/74 H 97 09/20/19 07:05 09/20/19 10:15 09/20/19 10:15 09/20/19 10:15 09/20/19 03:28 Laboratory Tests 09/20/19 04:30 Potassium 6.0 H Chloride 116 H Carbon Dioxide 9 L Creatinine 9.3 H* cardio s1s2 pulm scattered rhonchi gi soft ext left bka neuro confusion circ pos pulses skin neg rash Impression 1. KENDRICK 2. met acidosis 3. confusion 4. dm 5. htn 6. hx etoh abuse 7. developemental delay 8. hyperkalemia Plan - urgent bedside HD in ICU - bicarb pushes given overnight - HD to reverse acidosis - serologic workup, nick anca [id number] hep panel spep - monitor urine output - discussed with ER and ICU - will evaluate for HD tomorrow
[2019-09-20] MEDS ORDERED: ACETAMINOPHEN 325 MG TABLET (FP) PO PRN (17:06)
[2019-09-20] MEDS: ACETAMINOPHEN 1000 MG/100 ML VIAL (NON FORMULARY) IVPB PRN (18:16)
[2019-09-20 20:26] LABS: ALLENS TEST POSITIVE; ARTERIAL BLD GAS O2 SATURATION 93.9 % (95-98); ARTERIAL BLOOD GAS BASE EXCESS -8.6 meq/l (-2-2); ARTERIAL BLOOD GAS pH 7.26 (7.35-7.45)
[2019-09-20] MEDS ORDERED: SODIUM BICARBONATE 8.4% 50 MEQ/50 ML VIAL ONE (21:45)
[2019-09-20] MEDS: SODIUM BICARBONATE 4.2% 5 MEQ/10 ML DISP.SYRIN IVPUSH SCH (21:52)
--- NOTE | 2019-09-20 21:52 | CONSULT ---
Consult - text type - Consultation Consultation Note: NEUROLOGY CONSULTATION is greatly appreciated: This 49 yo man with long H/O Poorly controlled diabetes, PVD and ETOH (D /C'ed 2 years ago) Is s/p Left BKA and right forearm skin graft for abscess after spider bite. Admitted after 3-4 days of progressive confusion leading to lethargy with new renal failure (Cr=9.3 mg%) Lethargy improved after HD. Given CPAP for clinical apneic episodes. CT of head (reviewed): Normal TSH elevated at 4.26. B12 pending ALEX: Obese. Neck supple. No bruits. s/p left BKA NEURO: Lethargic but arousable./ In CPAP O x name. [facility]. 2018 Full tom to threat No drift. Areflexic in legs. R Plantar silent Withdraws R foot to pinch. IMP: No obvious focality Mild- Moderate B/L Cerebral dysfunction due to Toxic-Metabolic encephalopathy (ESRD/ r/o infection) SUGGEST: Continue current management. Follow Roselia, ABKade Consider Rx for hypothyroidism, if indicated Add Thiamine 200 mg IV q 8 H x 3 days. Thank you very much, Hipolito George MD
[2019-09-20] MEDS: CHLORHEXIDINE GLUCONATE 4% CLEANSER FOR DECOLONIZATION TP SCH (21:53)
[2019-09-21 02:14] LABS: ARTERIAL BLD GAS O2 SATURATION 94.2 % (95-98); ARTERIAL BLOOD GAS BASE EXCESS -8.6 meq/l (-2-2); ARTERIAL BLOOD GAS PCO2 43.3 mmHg (35-45); ARTERIAL BLOOD GAS pH 7.24 (7.35-7.45)
[2019-09-21 02:16] LABS: ARTERIAL BLOOD GAS PO2 87.8 mmHg (80-100)
[2019-09-21 02:17] LABS: ALLENS TEST POSITIVE
[2019-09-21] MEDS: THIAMINE HCL 200 MG/2 ML VIAL IVPB SCH ×3 (05:10→21:39)
[2019-09-21 06:01] LABS: BASO % 0.3 % (0-2.0); EOS % 2.8 % (0-4.5); HEMATOCRIT 21.5 % (35.4-49); HEMOGLOBIN 7.1 GM/dL (11.7-16.9); LYMPH % 6.5 % (8-40); MCH 29.8 pg (25.7-33.7); MCHC 33.2 g/dl (32.0-35.9); MEAN CELL VOLUME 89.8 fl (80-96); MEAN PLT VOLUME 8.5 fl (7.5-11.1); MONO % 10.1 % (3.8-10.2); NEUT % 80.3 % (42.8-82.8); PLATELET COUNT 203 K/MM3 (134-434); WHITE BLOOD COUNT 9.7 K/mm3 (4.0-10.0)
[2019-09-21 06:21] LABS: INR 1.06 (0.83-1.09); PROTHROMBIN TIME (PATIENT) 12.5 SEC (9.7-13.0)
[2019-09-21 06:29] LABS: ALBUMIN 2.5 g/dl (3.4-5.0); BILIRUBIN,TOTAL 0.4 mg/dL (0.2-1); BLOOD UREA NITROGEN 62.7 mg/dL (7-18); CREATININE 6.9 mg/dL (0.55-1.3); MAGNESIUM 1.9 mg/dL (1.8-2.4); PHOSPHOROUS 7.4 mg/dL (2.5-4.9); POTASSIUM 3.7 mmol/L (3.5-5.1); TOT PROT 5.3 g/dl (6.4-8.2)
[2019-09-21 06:45] LABS: CALCIUM 6.4 mg/dL (8.5-10.1)
--- NOTE | 2019-09-21 07:43 | PN ---
Progress Note (short form) - Note Progress Note: Pulm/CCM SUBJECTIVE: Patient seen and examined in the ICU. -making some urine. -on NIV overnight -sommulent but stable otherwise Vital Signs Temp 98.4 F 09/21/19 04:00 Pulse 89 09/21/19 04:00 Resp 16 09/21/19 04:00 BP 154/75 09/21/19 04:00 Pulse Ox 98 09/21/19 04:22 Intake & Output 09/20/19 09/20/19 09/21/19 11:59 23:59 11:59 Intake Total 1000 400 100 Output Total 2200 1800 1000 Balance -1200 -1400 -900 Weight 98.475 kg 99.422 kg Intake: IV 500 Normal Saline - 250 ml @ 500 3000 mls/hr IV PRN PRN Rx #:[id number] IVPB 500 400 100 Output: Urine 700 1800 1000 Yanez 700 1800 1000 Fluid Removed, 1500 Hemodialysis Other: Voiding Method Indwelling Catheter Indwelling Catheter Bowel Movement No Height 5 ft 10 in Body Mass Index (BMI) 31.1 Weight Measurement Method Built in [facility] Current Medications Acetaminophen (Ofirmev Injection -) 1,000 mg IVPB Q6H PRN PRN Reason: PAIN LEVEL 4 - 6 Last Admin: 09/20/19 18:16 Dose: 1,000 mg Amlodipine Besylate (Norvasc -) 10 mg PO DAILY [facility] Chlorhexidine Gluconate (Hibiclens For Decolonization -) 1 applic TP HS [facility] Last Admin: 09/20/19 21:53 Dose: 1 applic Gabapentin (Neurontin -) 300 mg PO DAILY [facility] Mupirocin (Bactroban Ointment (For Decolonization) -) 1 applic NS BID [facility] Stop: 09/25/19 09:59 Last Admin: 09/20/19 21:54 Dose: 1 applic Pantoprazole Sodium (Protonix -) 40 mg PO DAILY [facility] Thiamine HCl (Vitamin B1 Injection -) 200 mg IVPB TID [facility] Last Admin: 09/21/19 05:10 Dose: 200 mg GENERAL: Lethargic but arousable, mildly tachypneic HEAD: Normal with no signs of trauma. EYES: Pupils equal, round , extraocular movements intact, sclera anicteric, conjunctiva clear. No lid lag. EARS, NOSE, THROAT: Ears normal, nares patent, oropharynx clear without exudates. Moist mucous membranes. NECK: Normal range of motion, supple without lymphadenopathy, JVD, or masses. LUNGS: Breath sounds equal, clear to auscultation bilaterally. No wheezes, and no crackles. No accessory muscle use. HEART: Regular rate and rhythm, normal S1 and S2 without murmur, rub or gallop. ABDOMEN: Soft. obese abdomen MUSCULOSKELETAL: Normal range of motion at all joints. No bony deformities or tenderness. No CVA tenderness. EXTREMITIES: left BKA with prosthesis. 1+ edema on RLE extending to the garcia. NEUROLOGICAL: Lethargic, non-focal PSYCHIATRIC: Somnolent, awakens to loud voice. SKIN: scar on right forearm from skin graft. CBC, BMP 09/21/19 05:32 09/21/19 05:32 ASSESSMENT/PLAN: Acute Renal Failure Metabolic Encephalopathy IDDM noncompliant w/ medications GERD HTN R/O Sepsis Left BKA Gastroparesis Suspected UGIB Right TKR History of Right forearm spider bite requiring graft from the R thigh History of ETOH abuse HD per Renal , none planned for today Strict I & O, watch for renal recovery O2 to maintain saturation , Bipap at night, likely needs sleep study, appears to obstruct. Hold MAYA Normal transfusion thresholds Requires continued ICU monitoring John ACNP
[2019-09-21] MEDS ORDERED: SODIUM CHLORIDE 250 ML IV PRN (08:42)
--- NOTE | 2019-09-21 09:48 | PN ---
Progress Note (short form) - Note Progress Note: more alert on n/c Vital Signs Period Temp Pulse Resp BP Sys/Monet Pulse Ox Last 24 Hr 98.3 F-98.6 F 89-106 10-21 153-181/70-89 95-100 cor-rrr lungs decreased bs at bases abd soft,nt ext less edema RLE CBC, BMP 09/21/19 05:32 09/21/19 05:32 Microbiology 09/19/19 21:30 Blood - Central Line Blood Culture - Preliminary NO GROWTH OBTAINED AFTER 24 HOURS, INCUBATION TO CONTINUE FOR 4 DAYS. 09/19/19 21:30 Blood - Central Line Blood Culture - Preliminary NO GROWTH OBTAINED AFTER 24 HOURS, INCUBATION TO CONTINUE FOR 4 DAYS. a/p ARF- f/u with renal observe off antibiotics will offer him HIV testing when he is more alert
[2019-09-21] MEDS: ACETAMINOPHEN 1000 MG/100 ML VIAL (NON FORMULARY) IVPB PRN ×2 (10:04→22:27)
--- NOTE | 2019-09-21 10:16 | PN ---
Progress Note, Physician - Current Medication List Current Medications: Active Medications Acetaminophen (Ofirmev Injection -) 1,000 mg IVPB Q6H PRN PRN Reason: PAIN LEVEL 4 - 6 Last Admin: 09/21/19 10:04 Dose: 1,000 mg Amlodipine Besylate (Norvasc -) 10 mg PO DAILY [facility] Chlorhexidine Gluconate (Hibiclens For Decolonization -) 1 applic TP HS [facility] Last Admin: 09/20/19 21:53 Dose: 1 applic Gabapentin (Neurontin -) 300 mg PO DAILY [facility] Sodium Chloride (Normal Saline -) 250 mls @ 3,000 mls/hr IV PRN PRN PRN Reason: Hypotension during Dialysis Stop: 09/22/19 08:42 Mupirocin (Bactroban Ointment (For Decolonization) -) 1 applic NS BID [facility] Stop: 09/25/19 09:59 Last Admin: 09/20/19 21:54 Dose: 1 applic Pantoprazole Sodium (Protonix -) 40 mg PO DAILY [facility] Thiamine HCl (Vitamin B1 Injection -) 200 mg IVPB TID [facility] Last Admin: 09/21/19 05:10 Dose: 200 mg - Objective Vital Signs: Vital Signs Temperature 98.4 F 09/21/19 04:00 Pulse Rate 89 09/21/19 04:00 Respiratory Rate 16 09/21/19 04:00 Blood Pressure 154/75 09/21/19 04:00 O2 Sat by Pulse Oximetry (%) 99 09/21/19 09:00 Cardiovascular: Yes: S1, S2 Respiratory: Yes: Regular, CTA Bilaterally Gastrointestinal: Yes: Normal Bowel Sounds, Soft Neurological: Yes: Alert, Confusion Labs: CBC, BMP 09/21/19 05:32 09/21/19 05:32 INR, PTT INR 1.06 (0.83-1.09) 09/21/19 05:32 Problem List - Problems (1) Acute metabolic encephalopathy Assessment/Plan: improving maybe due to uremia no obvious infections cultures done--ID consult Neuro consult ct head sinus ds Code(s): G93.41 - METABOLIC ENCEPHALOPATHY (2) Acute renal failure (ARF) Assessment/Plan: Dialysis per renal--initiated monitor labs Code(s): N17.9 - ACUTE KIDNEY FAILURE, UNSPECIFIED (3) Diabetes Assessment/Plan: bgm and ss Code(s): E11.9 - TYPE 2 DIABETES MELLITUS WITHOUT COMPLICATIONS (4) HTN (hypertension) Assessment/Plan: monitor Code(s): I10 - ESSENTIAL (PRIMARY) HYPERTENSION (5) Acidosis Assessment/Plan: bicarb given monitor Code(s): E87.2 - ACIDOSIS (6) Anemia Assessment/Plan: prbc with dialysis Code(s): D64.9 - ANEMIA, UNSPECIFIED
[2019-09-21] MEDS: amLODIPine BESYLATE 10 MG TABLET (FP) PO SCH (10:17)
[2019-09-21] MEDS: GABAPENTIN 300 MG CAPSULE PO SCH (10:17)
[2019-09-21] MEDS: PANTOPRAZOLE 40 MG TABLET PO SCH (10:17)
[2019-09-21] MEDS ORDERED: PT OWN MED DRAWER 7, Y5N ONE (15:46)
[2019-09-21] MEDS: MUPIROCIN 2% TOPICAL OINTMENT FOR DECOLONIZATION NS SCH ×2 (17:46→21:39)
[2019-09-21] MEDS: ONDANSETRON 4 MG/2 ML VIAL IVPUSH PRN ×2 (17:50→22:47)
--- NOTE | 2019-09-21 18:05 | PN ---
Progress Note, Physician History of Present Illness: Pt seen and examined at bedside. He is more awake and interactive today. - Current Medication List Current Medications: Active Medications Acetaminophen (Ofirmev Injection -) 1,000 mg IVPB Q6H PRN PRN Reason: PAIN LEVEL 4 - 6 Last Admin: 09/21/19 10:04 Dose: 1,000 mg Amlodipine Besylate (Norvasc -) 10 mg PO DAILY [facility] Last Admin: 09/21/19 10:17 Dose: 10 mg Chlorhexidine Gluconate (Hibiclens For Decolonization -) 1 applic TP HS [facility] Last Admin: 09/20/19 21:53 Dose: 1 applic Gabapentin (Neurontin -) 300 mg PO DAILY [facility] Last Admin: 09/21/19 10:17 Dose: 300 mg Sodium Chloride (Normal Saline -) 250 mls @ 3,000 mls/hr IV PRN PRN PRN Reason: Hypotension during Dialysis Stop: 09/22/19 08:42 Mupirocin (Bactroban Ointment (For Decolonization) -) 1 applic NS BID [facility] Stop: 09/25/19 09:59 Last Admin: 09/21/19 17:46 Dose: Not Given Ondansetron HCl (Zofran Injection) 4 mg IVPUSH Q4H PRN PRN Reason: NAUSEA AND/OR VOMITING Last Admin: 09/21/19 17:50 Dose: 4 mg Pantoprazole Sodium (Protonix -) 40 mg PO DAILY [facility] Last Admin: 09/21/19 10:17 Dose: 40 mg Thiamine HCl (Vitamin B1 Injection -) 200 mg IVPB TID [facility] Last Admin: 09/21/19 15:49 Dose: 200 mg - Objective Vital Signs: Vital Signs Temperature 98.5 F 09/21/19 18:00 Pulse Rate 80 09/21/19 18:00 Respiratory Rate 14 09/21/19 18:00 Blood Pressure 193/79 H 09/21/19 18:00 O2 Sat by Pulse Oximetry (%) 99 09/21/19 09:00 Constitutional: Yes: Calm Eyes: Yes: Conjunctiva Clear HENT: Yes: Atraumatic Neck: Yes: Supple Cardiovascular: Yes: S1, S2 Respiratory: Yes: CTA Bilaterally, On Nasal O2 Gastrointestinal: Yes: Soft, Abdomen, Obese Genitourinary: Yes: WNL Musculoskeletal: Yes: WNL Edema: Yes Edema: LLE: 1+, RLE: 1+ Neurological: Yes: Confusion Labs: CBC, BMP 09/21/19 05:32 09/21/19 05:32 INR, PTT INR 1.06 (0.83-1.09) 09/21/19 05:32 Assessment/Plan Current Medications Generic Name Dose Route Start Last Admin Trade Name Julee PRN Reason Stop Dose Admin Acetaminophen 1,000 mg 09/20/19 17:16 09/21/19 10:04 Ofirmev Injection - IVPB 1,000 mg Q6H PRN Administration PAIN LEVEL 4 - 6 Amlodipine Besylate 10 mg 09/21/19 10:00 09/21/19 10:17 Norvasc - PO 10 mg DAILY [facility] Administration Chlorhexidine Gluconate 1 applic 09/20/19 22:00 09/20/19 21:53 Hibiclens For Decolonization - TP 1 applic HS [facility] Administration Gabapentin 300 mg 09/21/19 10:00 09/21/19 10:17 Neurontin - PO 300 mg DAILY [facility] Administration Sodium Chloride 250 mls @ 3,000 mls/hr 09/21/19 08:42 Normal Saline - IV 09/22/19 08:42 PRN PRN Hypotension during Dialysis Mupirocin 1 applic 09/20/19 10:00 09/21/19 17:46 Bactroban Ointment (For Decolonization) - NS 09/25/19 09:59 Not Given BID JESUS Ondansetron HCl 4 mg 09/21/19 17:36 09/21/19 17:50 Zofran Injection IVPUSH 4 mg Q4H PRN Administration NAUSEA AND/OR VOMITING Pantoprazole Sodium 40 mg 09/21/19 10:00 09/21/19 10:17 Protonix - PO 40 mg DAILY [facility] Administration Thiamine HCl 200 mg 09/21/19 06:00 09/21/19 15:49 Vitamin B1 Injection - IVPB 200 mg TID [facility] Administration Impression 1. KENDRICK 2. met acidosis 3. confusion 4. dm 5. htn 6. hx etoh abuse 7. developemental delay 8. hyperkalemia Plan - mental status improving - urine output improving - HD today - follow serologies - likely biopsy next week - discussed plan with
[2019-09-21 20:07] LABS: HEP B CORE AB, TOT Positive (Negative)
[2019-09-21] MEDS: CHLORHEXIDINE GLUCONATE 4% CLEANSER FOR DECOLONIZATION TP SCH (21:39)
[2019-09-22] MEDS: THIAMINE HCL 200 MG/2 ML VIAL IVPB SCH ×3 (06:23→21:20)
[2019-09-22 06:37] LABS: BASO % 0.1 % (0-2.0); EOS % 5.5 % (0-4.5); HEMOGLOBIN 8.7 GM/dL (11.7-16.9); LYMPH % 9.1 % (8-40); MCH 28.8 pg (25.7-33.7); MCHC 33.3 g/dl (32.0-35.9); MEAN CELL VOLUME 86.5 fl (80-96); MONO % 8.8 % (3.8-10.2); NEUT % 76.5 % (42.8-82.8); PLATELET COUNT 204 K/MM3 (134-434); RBC 3.01 M/mm3 (4.00-5.60); RDW 18.2 % (11.9-15.9)
[2019-09-22 06:55] LABS: ALBUMIN 2.5 g/dl (3.4-5.0); BILIRUBIN,TOTAL 0.7 mg/dL (0.2-1); BLOOD UREA NITROGEN 37.7 mg/dL (7-18); CREATININE 4.7 mg/dL (0.55-1.3); MAGNESIUM 1.9 mg/dL (1.8-2.4); TOT PROT 5.5 g/dl (6.4-8.2)
[2019-09-22 06:59] LABS: CALCIUM 6.8 mg/dL (8.5-10.1); POTASSIUM 2.9 mmol/L (3.5-5.1)
[2019-09-22 08:08] LABS: ASLO SCREEN 64.9 IU/mL (0.0-200.0)
[2019-09-22] MEDS: KCL 10 MEQ IVPB 10 MEQ/100 ML INFUS.BAG IVPB SCH ×2 (08:40→11:28)
[2019-09-22] MEDS: ONDANSETRON 4 MG/2 ML VIAL IVPUSH PRN (08:41)
--- NOTE | 2019-09-22 08:48 | PN ---
Progress Note (short form) - Note Progress Note: Progress Notes Pulm/CCM I have seen and examined the patient in the ICU. Pt still with intermittent episodes of delirium and N/V. Treated with Zofran. s/p IHD yesterday. K of 2.9 repleted. Current Medications Acetaminophen (Ofirmev Injection -) 1,000 mg IVPB Q6H PRN PRN Reason: PAIN LEVEL 4 - 6 Last Admin: 09/21/19 22:27 Dose: 1,000 mg Amlodipine Besylate (Norvasc -) 10 mg PO DAILY [facility] Last Admin: 09/21/19 10:17 Dose: 10 mg Chlorhexidine Gluconate (Hibiclens For Decolonization -) 1 applic TP HS [facility] Last Admin: 09/21/19 21:39 Dose: 1 applic Gabapentin (Neurontin -) 300 mg PO DAILY [facility] Last Admin: 09/21/19 10:17 Dose: 300 mg Sodium Chloride (Normal Saline -) 250 mls @ 3,000 mls/hr IV PRN PRN PRN Reason: Hypotension during Dialysis Stop: 09/22/19 08:42 Potassium Chloride (Potassium Chloride 10 Meq Premix Ivpb -) 10 meq in 100 mls @ 100 mls/hr IVPB Q60M [facility] Stop: 09/22/19 08:59 Last Admin: 09/22/19 08:40 Dose: 100 mls/hr Mupirocin (Bactroban Ointment (For Decolonization) -) 1 applic NS BID [facility] Stop: 09/25/19 09:59 Last Admin: 09/21/19 21:39 Dose: 1 applic Ondansetron HCl (Zofran Injection) 4 mg IVPUSH Q4H PRN PRN Reason: NAUSEA AND/OR VOMITING Last Admin: 09/22/19 08:41 Dose: 4 mg Pantoprazole Sodium (Protonix -) 40 mg PO DAILY [facility] Last Admin: 09/21/19 10:17 Dose: 40 mg Thiamine HCl (Vitamin B1 Injection -) 200 mg IVPB TID [facility] Last Admin: 09/22/19 06:23 Dose: 200 mg Vital Signs Period Temp Pulse Resp BP Sys/Monet Pulse Ox Last 24 Hr 98.4 F-98.8 F 80-101 9-22 122-193/65-91 99-99 Intake & Output 01/05/3109/20/19 09/21/19 09/22/19 23:59 23:59 23:59 23:59 Intake Total 1400 1250 100 Output Total 4000 4350 2300 Balance -2600 -3100 -2200 Weight 117.934 kg 98.475 kg 99.337 kg 97.613 kg GENERAL:Obese young man in NAD NEURO: Awake, strange affect, intermittent episodes of delirium; non-focal HEENT:PERRL, clear sclera, MMM LUNGS: Breath sounds equal, clear to auscultation bilaterally. HEART: RRR; normal S1 and S2 without murmur, rub or gallop. ABDOMEN: Soft. obese abdomen; +BS EXTREMITIES: left BKA with prosthesis. 1+ edema on RLE extending to the garcia. SKIN: c/d/i CBC,CMP WBC 9.0 K/mm3 (4.0-10.0) 09/22/19 05:50 RBC 3.01 M/mm3 (4.00-5.60) L 09/22/19 05:50 Hgb 8.7 GM/dL (11.7-16.9) L 09/22/19 05:50 Hct 26.0 % (35.4-49) L D 09/22/19 05:50 MCV 86.5 fl (80-96) 09/22/19 05:50 MCH 28.8 pg (25.7-33.7) 09/22/19 05:50 MCHC 33.3 g/dl (32.0-35.9) 09/22/19 05:50 RDW 18.2 % (11.9-15.9) H 09/22/19 05:50 Plt Count 204 K/MM3 (134-434) 09/22/19 05:50 MPV 8.0 fl (7.5-11.1) 09/22/19 05:50 Absolute Neuts (auto) 6.9 K/mm3 (1.5-8.0) 09/22/19 05:50 Neutrophils % 76.5 % (42.8-82.8) 09/22/19 05:50 Neutrophils % (Manual) 80.0 % (42.8-82.8) 09/19/19 21:30 Band Neutrophils % 2.0 % 09/19/19 21:30 Lymphocytes % 9.1 % (8-40) D 09/22/19 05:50 Lymphocytes % (Manual) 10.0 % (8-40) D 09/19/19 21:30 Monocytes % 8.8 % (3.8-10.2) 09/22/19 05:50 Monocytes % (Manual) 4 % (3.8-10.2) D 09/19/19 21:30 Eosinophils % 5.5 % (0-4.5) H D 09/22/19 05:50 Eosinophils % (Manual) 1.0 % (0-4.5) 09/19/19 21:30 Basophils % 0.1 % (0-2.0) 09/22/19 05:50 Basophils % (Manual) 0.0 % (0-2.0) 09/19/19 21:30 Myelocytes % (Man) 0 % (0-2) 09/19/19 21:30 Promyelocytes % (Man) 0 % (0-2) 09/19/19 21:30 Blast Cells % (Manual) 0 % (0-0) 09/19/19 21:30 Nucleated RBC % 0 % (0-0) 09/22/19 05:50 Metamyelocytes 3 % (0-2) H 09/19/19 21:30 Retic Count 2.34 % (0.5-1.5) H D 09/20/19 08:50 Sodium 143 mmol/L (136-145) 09/22/19 05:50 Potassium 2.9 mmol/L (3.5-5.1) L* 09/22/19 05:50 Chloride 108 mmol/L (98-107) H 09/22/19 05:50 Carbon Dioxide 25 mmol/L (21-32) 09/22/19 05:50 Anion Gap 9 MMOL/L (8-16) 09/22/19 05:50 BUN 37.7 mg/dL (7-18) H 09/22/19 05:50 Creatinine 4.7 mg/dL (0.55-1.3) H 09/22/19 05:50 Est GFR (CKD-EPI)AfAm 15.81 09/22/19 05:50 Est GFR (CKD-EPI)NonAf 13.64 09/22/19 05:50 POC Glucometer 81 UNITS (80-120) 09/22/19 06:28 Random Glucose 79 mg/dL (74-106) 09/22/19 05:50 Lactic Acid 0.5 mmol/L (0.4-2.0) 09/19/19 21:30 Calcium 6.8 mg/dL (8.5-10.1) L* 09/22/19 05:50 Phosphorus 7.4 mg/dL (2.5-4.9) H 09/21/19 05:32 Magnesium 1.9 mg/dL (1.8-2.4) 09/22/19 05:50 Total Bilirubin 0.7 mg/dL (0.2-1) 09/22/19 05:50 AST 19 U/L (15-37) 09/22/19 05:50 ALT 11 U/L (13-61) L 09/22/19 05:50 Alkaline Phosphatase 145 U/L (45-117) H 09/22/19 05:50 Ammonia 31.80 umol/L (11-32) 09/19/19 21:30 LD Total 210 U/L (87-246) 09/20/19 08:50 Troponin I < 0.02 ng/ml (0.00-0.05) 09/19/19 21:30 B-Natriuretic Peptide 00169.3 pg/ml (5-125) H 09/19/19 21:30 Total Protein 5.5 g/dl (6.4-8.2) L 09/22/19 05:50 Albumin 2.5 g/dl (3.4-5.0) L 09/22/19 05:50 Vitamin B12 368 pg/ml (193-986) 09/19/19 21:30 TSH 4.26 uIU/ml (0.358-3.74) H D 09/19/19 21:30 ASSESSMENT/PLAN: Acute Renal Failure Metabolic Encephalopathy IDDM noncompliant w/ medications GERD HTN R/O Sepsis Left BKA Gastroparesis Suspected UGIB Right TKR History of Right forearm spider bite requiring graft from the R thigh History of ETOH abuse HD per Renal , none planned for today Strict I & O, watch for renal recovery O2 to maintain saturation , Bipap at night, likely needs sleep study, appears to obstruct. Hold MAYA Cont Amlodipine Normal transfusion thresholds Cont Protonix Zofran prn Requires continued ICU monitoring Guadalupe Varela, ACNP
[2019-09-22] MEDS: amLODIPine BESYLATE 10 MG TABLET (FP) PO SCH (09:28)
[2019-09-22] MEDS: PANTOPRAZOLE 40 MG TABLET PO SCH (09:50)
[2019-09-22] MEDS: MUPIROCIN 2% TOPICAL OINTMENT FOR DECOLONIZATION NS SCH ×2 (09:50→21:20)
[2019-09-22] MEDS: GABAPENTIN 300 MG CAPSULE PO SCH (09:50)
--- NOTE | 2019-09-22 09:55 | PN ---
Progress Note (short form) - Note Progress Note: much more alert c/o nausea no memory of events leading to hospitalization reports left hearing loss- has seen ENT in the past Vital Signs Period Temp Pulse Resp BP Sys/Monet Pulse Ox Last 24 Hr 98.4 F-98.8 F 80-101 9-22 122-193/65-91 99 cor-rrr lungs clear abd soft, nt ext no edema =left bka =alamo CBC, BMP 09/22/19 05:50 09/22/19 05:50 Microbiology 09/19/19 21:30 Blood - Central Line Blood Culture - Preliminary NO GROWTH OBTAINED AFTER 48 HOURS, INCUBATION TO CONTINUE FOR 3 DAYS. 09/19/19 21:30 Blood - Central Line Blood Culture - Preliminary NO GROWTH OBTAINED AFTER 48 HOURS, INCUBATION TO CONTINUE FOR 3 DAYS. 09/20/19 02:00 Urine - Urine [place] Urine Culture - Final NO GROWTH OBTAINED a/p ARF- f/u with renal observe off antibiotics he declines HIV testing suggest ENT to evaluate hearing loss please call back if needed
--- NOTE | 2019-09-22 10:42 | PN ---
Progress Note, Physician - Current Medication List Current Medications: Active Medications Acetaminophen (Ofirmev Injection -) 1,000 mg IVPB Q6H PRN PRN Reason: PAIN LEVEL 4 - 6 Last Admin: 09/21/19 22:27 Dose: 1,000 mg Amlodipine Besylate (Norvasc -) 10 mg PO DAILY [facility] Last Admin: 09/22/19 09:28 Dose: 10 mg Chlorhexidine Gluconate (Hibiclens For Decolonization -) 1 applic TP HS [facility] Last Admin: 09/21/19 21:39 Dose: 1 applic Gabapentin (Neurontin -) 300 mg PO DAILY [facility] Last Admin: 09/22/19 09:50 Dose: 300 mg Sodium Chloride (Normal Saline -) 250 mls @ 3,000 mls/hr IV PRN PRN PRN Reason: Hypotension during Dialysis Stop: 09/22/19 08:42 Mupirocin (Bactroban Ointment (For Decolonization) -) 1 applic NS BID [facility] Stop: 09/25/19 09:59 Last Admin: 09/22/19 09:50 Dose: 1 applic Ondansetron HCl (Zofran Injection) 4 mg IVPUSH Q4H PRN PRN Reason: NAUSEA AND/OR VOMITING Last Admin: 09/22/19 08:41 Dose: 4 mg Pantoprazole Sodium (Protonix -) 40 mg PO DAILY [facility] Last Admin: 09/22/19 09:50 Dose: 40 mg Thiamine HCl (Vitamin B1 Injection -) 200 mg IVPB TID [facility] Last Admin: 09/22/19 06:23 Dose: 200 mg - Objective Vital Signs: Vital Signs Temperature 98.6 F 09/22/19 06:00 Pulse Rate 95 H 09/22/19 10:00 Respiratory Rate 16 09/22/19 10:00 Blood Pressure 162/81 09/22/19 10:00 O2 Sat by Pulse Oximetry (%) 99 09/22/19 09:00 Cardiovascular: Yes: S1, S2 Respiratory: Yes: Regular, CTA Bilaterally Gastrointestinal: Yes: Normal Bowel Sounds, Soft Neurological: Yes: Alert Labs: CBC, BMP 09/22/19 05:50 09/22/19 05:50 INR, PTT INR 1.06 (0.83-1.09) 09/21/19 05:32 Problem List - Problems (1) Acute metabolic encephalopathy Assessment/Plan: improving maybe due to uremia no obvious infections cultures done--ID consult Neuro consult ct head sinus ds Code(s): G93.41 - METABOLIC ENCEPHALOPATHY (2) Acute renal failure (ARF) Assessment/Plan: Dialysis per renal--initiated monitor labs Code(s): N17.9 - ACUTE KIDNEY FAILURE, UNSPECIFIED (3) Diabetes Assessment/Plan: bgm and ss Code(s): E11.9 - TYPE 2 DIABETES MELLITUS WITHOUT COMPLICATIONS (4) HTN (hypertension) Assessment/Plan: monitor Code(s): I10 - ESSENTIAL (PRIMARY) HYPERTENSION (5) Anemia Assessment/Plan: prbc with dialysis Code(s): D64.9 - ANEMIA, UNSPECIFIED
--- NOTE | 2019-09-22 16:13 | PN ---
Progress Note, Physician History of Present Illness: Pt seen and examined at bedside. He is more awake and interactive today. He denies shortness of breath. - Current Medication List Current Medications: Active Medications Acetaminophen (Ofirmev Injection -) 1,000 mg IVPB Q6H PRN PRN Reason: PAIN LEVEL 4 - 6 Last Admin: 09/21/19 22:27 Dose: 1,000 mg Amlodipine Besylate (Norvasc -) 10 mg PO DAILY [facility] Last Admin: 09/22/19 09:28 Dose: 10 mg Chlorhexidine Gluconate (Hibiclens For Decolonization -) 1 applic TP HS [facility] Last Admin: 09/21/19 21:39 Dose: 1 applic Gabapentin (Neurontin -) 300 mg PO DAILY [facility] Last Admin: 09/22/19 09:50 Dose: 300 mg Sodium Chloride (Normal Saline -) 250 mls @ 3,000 mls/hr IV PRN PRN PRN Reason: Hypotension during Dialysis Stop: 09/22/19 08:42 Mupirocin (Bactroban Ointment (For Decolonization) -) 1 applic NS BID [facility] Stop: 09/25/19 09:59 Last Admin: 09/22/19 09:50 Dose: 1 applic Ondansetron HCl (Zofran Injection) 4 mg IVPUSH Q4H PRN PRN Reason: NAUSEA AND/OR VOMITING Last Admin: 09/22/19 08:41 Dose: 4 mg Pantoprazole Sodium (Protonix -) 40 mg PO DAILY [facility] Last Admin: 09/22/19 09:50 Dose: 40 mg Potassium Chloride (K-Dur -) 40 meq PO ONCE ONE Stop: 09/22/19 16:11 Thiamine HCl (Vitamin B1 Injection -) 200 mg IVPB TID [facility] Last Admin: 09/22/19 13:17 Dose: 200 mg - Objective Vital Signs: Vital Signs Temperature 99.3 F 09/22/19 12:00 Pulse Rate 96 H 09/22/19 12:00 Respiratory Rate 15 09/22/19 12:00 Blood Pressure 161/78 09/22/19 12:00 O2 Sat by Pulse Oximetry (%) 99 09/22/19 09:00 Constitutional: Yes: Calm Eyes: Yes: Conjunctiva Clear HENT: Yes: Atraumatic Neck: Yes: Supple Cardiovascular: Yes: S1, S2 Respiratory: Yes: CTA Bilaterally Gastrointestinal: Yes: Soft Genitourinary: Yes: Yanez Present Musculoskeletal: Yes: WNL Edema: LLE: Trace, RLE: Trace Integumentary: Yes: WNL Neurological: Yes: Oriented Labs: CBC, BMP 09/22/19 05:50 09/22/19 05:50 INR, PTT INR 1.06 (0.83-1.09) 09/21/19 05:32 Assessment/Plan Current Medications Generic Name Dose Route Start Last Admin Trade Name Frenusrat PRN Reason Stop Dose Admin Acetaminophen 1,000 mg 09/20/19 17:16 09/21/19 22:27 Ofirmev Injection - IVPB 1,000 mg Q6H PRN Administration PAIN LEVEL 4 - 6 Amlodipine Besylate 10 mg 09/21/19 10:00 09/22/19 09:28 Norvasc - PO 10 mg DAILY [facility] Administration Chlorhexidine Gluconate 1 applic 09/20/19 22:00 09/21/19 21:39 Hibiclens For Decolonization - TP 1 applic HS [facility] Administration Gabapentin 300 mg 09/21/19 10:00 09/22/19 09:50 Neurontin - PO 300 mg DAILY [facility] Administration Sodium Chloride 250 mls @ 3,000 mls/hr 09/21/19 08:42 Normal Saline - IV 09/22/19 08:42 PRN PRN Hypotension during Dialysis Mupirocin 1 applic 09/20/19 10:00 09/22/19 09:50 Bactroban Ointment (For Decolonization) - NS 09/25/19 09:59 1 applic BID [facility] Administration Ondansetron HCl 4 mg 09/21/19 17:36 09/22/19 08:41 Zofran Injection IVPUSH 4 mg Q4H PRN Administration NAUSEA AND/OR VOMITING Pantoprazole Sodium 40 mg 09/21/19 10:00 09/22/19 09:50 Protonix - PO 40 mg DAILY [facility] Administration Potassium Chloride 40 meq 09/22/19 16:10 K-Dur - PO 09/22/19 16:11 ONCE ONE Thiamine HCl 200 mg 09/21/19 06:00 09/22/19 13:17 Vitamin B1 Injection - IVPB 200 mg TID [facility] Administration Impression 1. KENDRICK 2. met acidosis 3. confusion 4. dm 5. htn 6. hx etoh abuse 7. developemental delay 8. hyperkalemia - resolved 9. hypokalemia Plan - replace potassium - pt making urine - follow serologies - repeat supervisor [employer] in am - discussed kidney biopsy once stable
[2019-09-22] MEDS ORDERED: POTASSIUM CHLORIDE TABS 20 MEQ TABLET.ER (FP) PO ONE (16:45)
[2019-09-22] MEDS: CHLORHEXIDINE GLUCONATE 4% CLEANSER FOR DECOLONIZATION TP SCH (21:20)
[2019-09-23] MEDS: THIAMINE HCL 200 MG/2 ML VIAL IVPB SCH ×3 (05:48→21:11)
--- NOTE | 2019-09-23 07:58 | PN ---
Progress Note, Physician - Current Medication List Current Medications: Active Medications Acetaminophen (Ofirmev Injection -) 1,000 mg IVPB Q6H PRN PRN Reason: PAIN LEVEL 4 - 6 Last Admin: 09/21/19 22:27 Dose: 1,000 mg Amlodipine Besylate (Norvasc -) 10 mg PO DAILY [facility] Last Admin: 09/22/19 09:28 Dose: 10 mg Chlorhexidine Gluconate (Hibiclens For Decolonization -) 1 applic TP HS [facility] Last Admin: 09/22/19 21:20 Dose: 1 applic Gabapentin (Neurontin -) 300 mg PO DAILY [facility] Last Admin: 09/22/19 09:50 Dose: 300 mg Sodium Chloride (Normal Saline -) 250 mls @ 3,000 mls/hr IV PRN PRN PRN Reason: Hypotension during Dialysis Stop: 09/22/19 08:42 Mupirocin (Bactroban Ointment (For Decolonization) -) 1 applic NS BID [facility] Stop: 09/25/19 09:59 Last Admin: 09/22/19 21:20 Dose: 1 applic Ondansetron HCl (Zofran Injection) 4 mg IVPUSH Q4H PRN PRN Reason: NAUSEA AND/OR VOMITING Last Admin: 09/22/19 08:41 Dose: 4 mg Pantoprazole Sodium (Protonix -) 40 mg PO DAILY [facility] Last Admin: 09/22/19 09:50 Dose: 40 mg Thiamine HCl (Vitamin B1 Injection -) 200 mg IVPB TID [facility] Last Admin: 09/23/19 05:48 Dose: 200 mg - Objective Vital Signs: Vital Signs Temperature 98.7 F 09/23/19 06:00 Pulse Rate 94 H 09/23/19 06:00 Respiratory Rate 11 09/23/19 06:00 Blood Pressure 157/71 09/23/19 06:00 O2 Sat by Pulse Oximetry (%) 99 09/22/19 20:14 Cardiovascular: Yes: Regular Rate and Rhythm Respiratory: Yes: Regular, CTA Bilaterally Gastrointestinal: Yes: Normal Bowel Sounds, Soft Edema: No Labs: CBC, BMP 09/22/19 05:50 INR, PTT INR 1.06 (0.83-1.09) 09/21/19 05:32 Problem List - Problems (1) Acute metabolic encephalopathy Assessment/Plan: improved maybe due to uremia no obvious infections cultures done--ID consult Neuro consult noted ct head sinus ds Code(s): G93.41 - METABOLIC ENCEPHALOPATHY (2) Acute renal failure (ARF) Assessment/Plan: Dialysis per renal--initiated monitor labs Laboratory Tests 09/20/19 09/23/19 04:30 06:12 BUN 96.0 H 38.0 H Creatinine 9.3 H* 5.1 H Code(s): N17.9 - ACUTE KIDNEY FAILURE, UNSPECIFIED (3) Diabetes Assessment/Plan: bgm and ss Code(s): E11.9 - TYPE 2 DIABETES MELLITUS WITHOUT COMPLICATIONS (4) HTN (hypertension) Assessment/Plan: monitor Vital Signs Period Temp Pulse Resp BP Sys/Monet Pulse Ox Last 24 Hr 98.7 F-99.4 F 91-96 - 136-174/69-88 99 Code(s): I10 - ESSENTIAL (PRIMARY) HYPERTENSION (5) Anemia Assessment/Plan: s/p prbc with dialysis stable monitor Code(s): D64.9 - ANEMIA, UNSPECIFIED Assessment/Plan physical therapy
[2019-09-23 08:57] LABS: HEMOGLOBIN 8.8 GM/dL (11.7-16.9); MCH 29.1 pg (25.7-33.7); MCHC 33.7 g/dl (32.0-35.9); MEAN CELL VOLUME 86.3 fl (80-96); MEAN PLT VOLUME 7.8 fl (7.5-11.1); PLATELET COUNT 225 K/MM3 (134-434); RBC 3.02 M/mm3 (4.00-5.60); RDW 17.8 % (11.9-15.9)
[2019-09-23 09:08] LABS: ALBUMIN 2.5 g/dl (3.4-5.0); BILIRUBIN,TOTAL 0.7 mg/dL (0.2-1); CREATININE 5.1 mg/dL (0.55-1.3); MAGNESIUM 1.8 mg/dL (1.8-2.4); PHOSPHOROUS 3.3 mg/dL (2.5-4.9); TOT PROT 5.3 g/dl (6.4-8.2)
[2019-09-23 09:14] LABS: CALCIUM 6.4 mg/dL (8.5-10.1)
[2019-09-23] MEDS: amLODIPine BESYLATE 10 MG TABLET (FP) PO SCH (09:37)
[2019-09-23] MEDS: PANTOPRAZOLE 40 MG TABLET PO SCH (09:37)
[2019-09-23] MEDS: GABAPENTIN 300 MG CAPSULE PO SCH (09:38)
[2019-09-23] MEDS: MUPIROCIN 2% TOPICAL OINTMENT FOR DECOLONIZATION NS SCH ×2 (09:39→21:11)
--- NOTE | 2019-09-23 10:31 | PN ---
Teaching Attending Note Name of Resident: Daniella Denton ATTENDING PHYSICIAN STATEMENT I saw and evaluated the patient. I reviewed the resident's note and discussed the case with the resident. I agree with the resident's findings and plan as documented. SUBJECTIVE: Patient seen and examined in the ICU. Awake and alert. Denies CP or SOB. No acute events overnight. Intake & Output 09/20/19 09/21/19 09/22/19 09/23/19 23:59 23:59 23:59 23:59 Intake Total 1400 1250 1450 100 Output Total 4000 4350 3100 2000 Balance -2600 -3100 -1650 -1900 Weight 217 lb 1.6 oz 219 lb 215 lb 3.2 oz 243 lb 4.8 oz Last Vital Signs Temp Pulse Resp BP Pulse Ox 98.4 F 97 H 14 178/88 H 99 09/23/19 10:00 09/23/19 10:00 09/23/19 10:00 09/23/19 10:00 09/23/19 09:00 Active Medications Acetaminophen (Ofirmev Injection -) 1,000 mg IVPB Q6H PRN PRN Reason: PAIN LEVEL 4 - 6 Last Admin: 09/21/19 22:27 Dose: 1,000 mg Amlodipine Besylate (Norvasc -) 10 mg PO DAILY [facility] Last Admin: 09/23/19 09:37 Dose: 10 mg Chlorhexidine Gluconate (Hibiclens For Decolonization -) 1 applic TP HS [facility] Last Admin: 09/22/19 21:20 Dose: 1 applic Gabapentin (Neurontin -) 300 mg PO DAILY [facility] Last Admin: 09/23/19 09:38 Dose: 300 mg Sodium Chloride (Normal Saline -) 250 mls @ 3,000 mls/hr IV PRN PRN PRN Reason: Hypotension during Dialysis Stop: 09/22/19 08:42 Mupirocin (Bactroban Ointment (For Decolonization) -) 1 applic NS BID [facility] Stop: 09/25/19 09:59 Last Admin: 09/23/19 09:39 Dose: 1 applic Ondansetron HCl (Zofran Injection) 4 mg IVPUSH Q4H PRN PRN Reason: NAUSEA AND/OR VOMITING Last Admin: 09/22/19 08:41 Dose: 4 mg Pantoprazole Sodium (Protonix -) 40 mg PO DAILY [facility] Last Admin: 09/23/19 09:37 Dose: 40 mg Thiamine HCl (Vitamin B1 Injection -) 200 mg IVPB TID [facility] Last Admin: 09/23/19 05:48 Dose: 200 mg GENERAL: Awake and alert, NAD NEURO: Awake, non-focal HEENT:PERRL, clear sclera, MMM LUNGS: Breath sounds equal, clear to auscultation bilaterally. HEART: RRR; normal S1 and S2 without murmur, rub or gallop. ABDOMEN: Soft. obese abdomen; +BS EXTREMITIES: left BKA, 1+ edema on RLE extending to the garcia. SKIN: c/d/i Laboratory Results - last 24 hr 09/19/19 09/22/19 09/22/19 21:30 11:45 16:01 WBC RBC Hgb Hct MCV MCH MCHC RDW Plt Count MPV Sodium Potassium Chloride Carbon Dioxide Anion Gap BUN Creatinine Est GFR (CKD-EPI)AfAm Est GFR (CKD-EPI)NonAf POC Glucometer 75 120 Random Glucose Calcium Phosphorus Magnesium Total Bilirubin AST ALT Alkaline Phosphatase Total Protein Albumin Lyme IgM 23 kDa Band No Result Required. Lyme IgM 39 kDa Band No Result Required. Lyme IgM 41 kDa Band No Result Required. 09/22/19 09/23/19 09/23/19 23:21 05:55 06:12 WBC RBC Hgb Hct MCV MCH MCHC RDW Plt Count MPV Sodium 142 Potassium 3.0 L Chloride 110 H Carbon Dioxide 25 Anion Gap 8 BUN 38.0 H Creatinine 5.1 H Est GFR (CKD-EPI)AfAm 14.33 Est GFR (CKD-EPI)NonAf 12.36 POC Glucometer 150 93 Random Glucose 106 Calcium 6.4 L* Phosphorus 3.3 Magnesium 1.8 Total Bilirubin 0.7 AST 16 ALT 12 L Alkaline Phosphatase 150 H Total Protein 5.3 L Albumin 2.5 L Lyme IgM 23 kDa Band Lyme IgM 39 kDa Band Lyme IgM 41 kDa Band 09/23/19 08:30 WBC 11.0 H RBC 3.02 L Hgb 8.8 L Hct 26.0 L MCV 86.3 MCH 29.1 MCHC 33.7 RDW 17.8 H Plt Count 225 MPV 7.8 Sodium Potassium Chloride Carbon Dioxide Anion Gap BUN Creatinine Est GFR (CKD-EPI)AfAm Est GFR (CKD-EPI)NonAf POC Glucometer Random Glucose Calcium Phosphorus Magnesium Total Bilirubin AST ALT Alkaline Phosphatase Total Protein Albumin Lyme IgM 23 kDa Band Lyme IgM 39 kDa Band Lyme IgM 41 kDa Band ASSESSMENT/PLAN: Acute Renal Failure Metabolic Encephalopathy IDDM noncompliant w/ medications GERD HTN R/O Sepsis Left BKA Gastroparesis Suspected UGIB Right TKR History of Right forearm spider bite requiring graft from the R thigh History of ETOH abuse HD per Renal Strict I & O, watch for renal recovery O2 to maintain saturation , NIPPV PRN, needs formal sleep study after DC Normal transfusion thresholds Cont Protonix Floor Dr Iverson
[2019-09-23 11:07] LABS: ANTIGLOMERULAR BASEMENT MEN.AB 3 units (0-20)
--- NOTE | 2019-09-23 11:24 | PN ---
Physical Exam: SUBJECTIVE: Patient seen and examined. Mental status improved, aox3 today. Last dialyzed 09/21/19. OBJECTIVE: Vital Signs Period Temp Pulse Resp BP Sys/Monet Pulse Ox Last 24 Hr 98.4 F-99.4 F 91-97 11- 136-178/69-88 99-99 GENERAL: AOx3. HEENT: sclera wnl. L eye blindness. MMM. LUNGS: CTABL. HEART: RRR. S1S2 heard no mrg ABDOMEN: Soft. Nontender nondistended. + bowel sounds. NEURO: mildly dysarthric. 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 EXTREMITIES: LLE BKA. RLE no edema. Graft scar to RLE. SKIN: no rashes or lesions noted Laboratory Results - last 24 hr 09/19/19 09/22/19 09/22/19 21:30 11:45 16:01 WBC RBC Hgb Hct MCV MCH MCHC RDW Plt Count MPV Sodium Potassium Chloride Carbon Dioxide Anion Gap BUN Creatinine Est GFR (CKD-EPI)AfAm Est GFR (CKD-EPI)NonAf POC Glucometer 75 120 Random Glucose Calcium Phosphorus Magnesium Total Bilirubin AST ALT Alkaline Phosphatase Total Protein Albumin Lyme IgM 23 kDa Band No Result Required. Lyme IgM 39 kDa Band No Result Required. Lyme IgM 41 kDa Band No Result Required. 09/22/19 09/23/19 09/23/19 23:21 05:55 06:12 WBC RBC Hgb Hct MCV MCH MCHC RDW Plt Count MPV Sodium 142 Potassium 3.0 L Chloride 110 H Carbon Dioxide 25 Anion Gap 8 BUN 38.0 H Creatinine 5.1 H Est GFR (CKD-EPI)AfAm 14.33 Est GFR (CKD-EPI)NonAf 12.36 POC Glucometer 150 93 Random Glucose 106 Calcium 6.4 L* Phosphorus 3.3 Magnesium 1.8 Total Bilirubin 0.7 AST 16 ALT 12 L Alkaline Phosphatase 150 H Total Protein 5.3 L Albumin 2.5 L Lyme IgM 23 kDa Band Lyme IgM 39 kDa Band Lyme IgM 41 kDa Band 09/23/19 08:30 WBC 11.0 H RBC 3.02 L Hgb 8.8 L Hct 26.0 L MCV 86.3 MCH 29.1 MCHC 33.7 RDW 17.8 H Plt Count 225 MPV 7.8 Sodium Potassium Chloride Carbon Dioxide Anion Gap BUN Creatinine Est GFR (CKD-EPI)AfAm Est GFR (CKD-EPI)NonAf POC Glucometer Random Glucose Calcium Phosphorus Magnesium Total Bilirubin AST ALT Alkaline Phosphatase Total Protein Albumin Lyme IgM 23 kDa Band Lyme IgM 39 kDa Band Lyme IgM 41 kDa Band Active Medications Generic Name Dose Route Start Last Admin Trade Name Freq PRN Reason Stop Dose Admin Acetaminophen 1,000 mg 09/20/19 17:16 09/21/19 22:27 Ofirmev Injection - IVPB 1,000 mg Q6H PRN Administration PAIN LEVEL 4 - 6 Amlodipine Besylate 10 mg 09/21/19 10:00 09/23/19 09:37 Norvasc - PO 10 mg DAILY [facility] Administration Chlorhexidine Gluconate 1 applic 09/20/19 22:00 09/22/19 21:20 Hibiclens For Decolonization - TP 1 applic HS [facility] Administration Gabapentin 300 mg 09/21/19 10:00 09/23/19 09:38 Neurontin - PO 300 mg DAILY [facility] Administration Sodium Chloride 250 mls @ 3,000 mls/hr 09/21/19 08:42 Normal Saline - IV 09/22/19 08:42 PRN PRN Hypotension during Dialysis Mupirocin 1 applic 09/20/19 10:00 09/23/19 09:39 Bactroban Ointment (For Decolonization) - NS 09/25/19 09:59 1 applic BID [facility] Administration Ondansetron HCl 4 mg 09/21/19 17:36 09/22/19 08:41 Zofran Injection IVPUSH 4 mg Q4H PRN Administration NAUSEA AND/OR VOMITING Pantoprazole Sodium 40 mg 09/21/19 10:00 09/23/19 09:37 Protonix - PO 40 mg DAILY [facility] Administration Thiamine HCl 200 mg 09/21/19 06:00 09/23/19 05:48 Vitamin B1 Injection - IVPB 200 mg TID [facility] Administration ASSESSMENT/PLAN: 49 y.o. M PMH IDDM, HTN, GED, gastroparesis, previous UGIB, left BKA, R thigh skin graft 2/2 R arm spider bite, EtOH abuse (quit 2 yrs ago) presenting for AMS & acute metabolic acidosis. 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 mucous retention cyst. opacifications of mastoid air cells b/l. #CV -Hx htn; holding home ACEi #Pulm -CXR no acute pathology -Saturating well on 2L NC #Renal -S/p L trialysis catheter placement -Blood gas on admission shows acidosis pH<7; most recent abg 09/21/19 shows improvement of acidosis -trend renal labs -renal/ bladder US; no hydronephrosis. distended bladder -renal following-- f/u for possible permacath placement #GI -normocytic anemia, eelvaetd retic count (2.34) -coags wnl -monitor h&h; stable for now -CT A/P: b/l pleural effusions & bibasilar atelectasis, small amount of ascites , subcutaneous edema #ID -no further episodes diarrhea -Hx MRSA skin infections -observing off abx -patient declining hiv testing at this time -Hep B immune -ID following #PPX -SCD RLE; BKA LLE #FEN -no standing fluids -Severe hyperkalemia resolved; now hypokalemia, repleting -Soft diet advance as tolerated #Dispo -transfer to med surg Visit type - Emergency Visit Emergency Visit: No - New Patient This patient is new to me today: No - Critical Care Critical Care patient: Yes Total Critical Care Time (in minutes): 45 Critical Care Statement: The care of this patient involved high complexity decision making to prevent further life threatening deterioration of the patient 's condition and/or to evaluate & treat vital organ system(s) failure or risk of failure. ATTENDING PHYSICIAN STATEMENT I saw and evaluated the patient. I reviewed the resident's note and discussed the case with the resident. I agree with the resident's findings and plan as documented. SUBJECTIVE: OBJECTIVE: ASSESSMENT AND PLAN:
[2019-09-23] MEDS: KCL 10 MEQ IVPB 10 MEQ/100 ML INFUS.BAG IVPB SCH ×3 (12:36→16:00)
[2019-09-23] MEDS ORDERED: LABETALOL HCL 100 MG TABLET (FP) PO SCH (13:30)
--- NOTE | 2019-09-23 14:33 | CONSULT ---
Admitting History and Physical - Admission History of Present Illness: 49 y.o. M PMH IDDM, HTN, GED, gastroparesis, previous UGIB, left BKA, R thigh skin graft 2/2 R arm spider bite, EtOH abuse (quit 2 yrs ago) presenting for AMS & acute metabolic acidosis. Cognition has improved. Able to provide medical history. This is my first consult with this pt. Selected Entries 09/22/19 09/22/19 09/22/19 02:00 06:00 10:00 Breakfast 25% Temperature 98.4 F 98.6 F 98.9 F 09/22/19 09/22/19 09/22/19 12:00 14:00 18:00 Breakfast Temperature 99.3 F 99.2 F 99.4 F 09/22/19 09/22/19 09/23/19 19:21 20:00 06:00 Breakfast 25% Temperature 99.2 F 98.7 F 09/23/19 09/23/19 10:00 14:00 Breakfast 50% Temperature 98.4 F 98.7 F Laboratory Tests 09/21/19 09/22/19 09/23/19 05:32 05:50 08:30 WBC 9.7 9.0 11.0 H History Source: Patient, Medical Record Limitations to Obtaining History: No Limitations - Past Medical History Cardiovascular: Yes: HTN, Hyperlipdemia Gastrointestinal: Yes: GERD, GI Bleed Heme/Onc: Yes: Anemia Infectious Disease: Yes: MRSA (several years ago) Musculoskeletal: Yes: Other (left thigh pain) Endocrine: Yes: Diabetes Mellitus Dermatology: Yes: Cellulitis (mrsa) - Past Surgical History Past Surgical History: Yes: Amputation (left BKA), Joint Replacement - Smoking History Smoking history: Former smoker Have you smoked in the past 12 months: No Aproximately how many cigarettes per day: 0 If you are a former smoker, when did you quit?: 10 years ago - Alcohol/Substance Use Hx Alcohol Use: No (Former 2 year ago) History of Substance Use: reports: Cocaine (intranasal and crack coaine abuse in past) - Social History ADL: Independent History of Recent Travel: No History - Admission Reason For Visit: ACUTE RENAL FAILURE, UREMIA - Diagnostics CT Scan: Report Reviewed (Head CT No evidence of hemorrhage, acute territorial infarction, mass effect, midline shift, hydrocephalus, or extra-axial collections. Mild mucoperiosteal thickening within the sphenoid,ethmoid and maxillary sinuses there is a small fluid level within the left maxillary sinus along with a moderate-sized mucous retention cyst. Complete opacification of the right mastoid air cells and near-complete opacification of the left mastoid air cells. Status post bilateral cataract surgery The calvarium is intact) - General Mental Status: Alert and Oriented, Awake and Alert, Able to Follow Commands Attention: Intact Ability to Follow Directions: Excellent Head/Neck Control: WFL - Hearing Hearing: Impaired, Left Ear (suggest audiological evaluation upon d/c) Speech Evaluation - Communication Primary Language: [place]EN[place] Communication: Yes: Within Normal Limits Oral Expression Ability: Yes: No Impairment - Speech Production Able to Make Needs Known: Yes: WNL Intelligibility: Yes: WNL - Speech Characteristics Voice Loudness: Normal Voice Pitch: Yes: Normal Voice Phonatory-based Quality: Yes: Normal Speech Pattern: Normal Speech Clarity: < 100% Nasal Resonance: Normal Articulation: Yes: Precise Rate of Speech: Intact - Language/Auditory Comprehension Follows: Yes: 2 Stage Simple Commands Observation: Able to respond to yes/no queries: Yes, Yes/No Confusion: No, Comprehends Conversational Speech: Yes - Language/Verbal Expression Able to Respond to Simple Queries: Yes: WNL Able to Communicate Wants and Needs: Yes: WNL Functional Communication Status: Yes: WNL - Swallow Evaluation/Bedside Assessment Current Nutritional Intake: Regular, Thin Liquids Oral Secretions: Yes: WFL Dentition: Yes: Edentulous Facial Symmetry at Rest: Facial Droop Left (slight) Facial Symmetry on Retraction: Symmetrical Against Resistance Opening: Normal Against Resistance Closing: Normal Pucker Lips: Normal, Weak Smile: Normal, Weak Lingual Movement: Normal, Symmetric Lingual Speed of Movement: Normal Lingual Movement Strgth Against Opposition: Normal Lingual Movement Characteristics: Normal Velopharyngeal Movement: Normal Laryngeal Elevation: WFL Laryngeal Movement: Able to Palpate Rate of Intake: WFL Bolus Size: WFL Labial Seal: WFL Chewing: WFL (edentulous, chews fairly well. He does not wear his dentures, says he "sometimes swallows food whole") Oral Prep Time: WFL A-P Transit: WFL Timing of Swallow: WFL Coughing/Throat Clear: No Change in Voice: No Recommendations - Speech Evaluation, Impression/Plan Impression: Swallow is functional. Verbal. Cognitively improved. - Dysphagia Impressions/Plan Dysphagia Impressions: Mild Impairment *Silent aspiration: cannot be R/O at bedside Dysphagia Treatment Plan: Small Bites, Chin Tuck/Down, Clear Pocket Food, Facilitative Feeding, Safe Rate, 1/2 tsp. at a time, OOB for meals, OOB for 1 h. after meals - Recommendations Diet Consistency: Regular (soft, easy to chew) Medication Administration: Whole with water Liquids: Thin Liquids
--- NOTE | 2019-09-23 15:09 | PN ---
Progress Note, Physician History of Present Illness: Pt seen and examined at bedside. He is awake and appears comfortable. - Current Medication List Current Medications: Active Medications Acetaminophen (Ofirmev Injection -) 1,000 mg IVPB Q6H PRN PRN Reason: PAIN LEVEL 4 - 6 Last Admin: 09/21/19 22:27 Dose: 1,000 mg Amlodipine Besylate (Norvasc -) 10 mg PO DAILY [facility] Last Admin: 09/23/19 09:37 Dose: 10 mg Chlorhexidine Gluconate (Hibiclens For Decolonization -) 1 applic TP HS [facility] Last Admin: 09/22/19 21:20 Dose: 1 applic Gabapentin (Neurontin -) 300 mg PO DAILY [facility] Last Admin: 09/23/19 09:38 Dose: 300 mg Sodium Chloride (Normal Saline -) 250 mls @ 3,000 mls/hr IV PRN PRN PRN Reason: Hypotension during Dialysis Stop: 09/22/19 08:42 Labetalol HCl (Normodyne -) 200 mg PO BID [facility] Mupirocin (Bactroban Ointment (For Decolonization) -) 1 applic NS BID [facility] Stop: 09/25/19 09:59 Last Admin: 09/23/19 09:39 Dose: 1 applic Ondansetron HCl (Zofran Injection) 4 mg IVPUSH Q4H PRN PRN Reason: NAUSEA AND/OR VOMITING Last Admin: 09/22/19 08:41 Dose: 4 mg Pantoprazole Sodium (Protonix -) 40 mg PO DAILY [facility] Last Admin: 09/23/19 09:37 Dose: 40 mg Thiamine HCl (Vitamin B1 Injection -) 200 mg IVPB TID [facility] Last Admin: 09/23/19 14:36 Dose: 200 mg - Objective Vital Signs: Vital Signs Temperature 98.7 F 09/23/19 14:00 Pulse Rate 93 H 09/23/19 14:00 Respiratory Rate 14 09/23/19 14:00 Blood Pressure 140/84 09/23/19 14:00 O2 Sat by Pulse Oximetry (%) 99 09/23/19 09:00 Constitutional: Yes: Calm Eyes: Yes: Conjunctiva Clear HENT: Yes: Atraumatic Cardiovascular: Yes: S1, S2 Respiratory: Yes: CTA Bilaterally Gastrointestinal: Yes: Soft, Abdomen, Obese Genitourinary: Yes: WNL Musculoskeletal: Yes: WNL Edema: Yes Edema: LLE: 1+, RLE: 1+ Neurological: Yes: Pre-Existing Deficit Labs: CBC, BMP 09/23/19 08:30 09/23/19 06:12 INR, PTT INR 1.06 (0.83-1.09) 09/21/19 05:32 Assessment/Plan Current Medications Generic Name Dose Route Start Last Admin Trade Name Freq PRN Reason Stop Dose Admin Acetaminophen 1,000 mg 09/20/19 17:16 09/21/19 22:27 Ofirmev Injection - IVPB 1,000 mg Q6H PRN Administration PAIN LEVEL 4 - 6 Amlodipine Besylate 10 mg 09/21/19 10:00 09/23/19 09:37 Norvasc - PO 10 mg DAILY [facility]US Administration Calcium Gluconate 1,000 mg 09/23/19 15:03 Calcium Gluconate 10% - IVPUSH 09/23/19 15:04 ONCE ONE Chlorhexidine Gluconate 1 applic 09/20/19 22:00 09/22/19 21:20 Hibiclens For Decolonization - TP 1 applic HS JESUS Administration Gabapentin 300 mg 09/21/19 10:00 09/23/19 09:38 Neurontin - PO 300 mg DAILY [facility]US Administration Sodium Chloride 250 mls @ 3,000 mls/hr 09/21/19 08:42 Normal Saline - IV 09/22/19 08:42 PRN PRN Hypotension during Dialysis Labetalol HCl 200 mg 09/23/19 15:03 Normodyne - PO BID [facility] Mupirocin 1 applic 09/20/19 10:00 09/23/19 09:39 Bactroban Ointment (For Decolonization) - NS 09/25/19 09:59 1 applic BID [facility]ESUS Administration Ondansetron HCl 4 mg 09/21/19 17:36 09/22/19 08:41 Zofran Injection IVPUSH 4 mg Q4H PRN Administration NAUSEA AND/OR VOMITING Pantoprazole Sodium 40 mg 09/21/19 10:00 09/23/19 09:37 Protonix - PO 40 mg DAILY [facility]ESUS Administration Potassium Chloride 40 meq 09/23/19 15:03 K-Dur - PO 09/23/19 15:04 ONCE ONE Thiamine HCl 200 mg 09/21/19 06:00 01/13/20 14:36 Vitamin B1 Injection - IVPB 200 mg TID JESUS Administration Impression 1. KENDRICK 2. met acidosis 3. confusion 4. dm 5. htn 6. hx etoh abuse 7. developemental delay 8. hyperkalemia - resolved 9. hypokalemia Plan - replace lytes - repeat labs in am - will evaluate for HD tomorrow - kidney biopsy once stable - serologies neg so far - will repeat ua - increase labetolol
[2019-09-23] MEDS ORDERED: POTASSIUM CHLORIDE TABS 20 MEQ TABLET.ER (FP) PO ONE (15:45)
[2019-09-23] MEDS ORDERED: CALCIUM GLUCONATE 10% - 1,000 MG/10 ML VIAL IVPUSH ONE (15:45)
[2019-09-23 18:07] LABS: ATYPICAL pANCA <1:20 titer (Neg:<1:20); C-ANCA <1:20 titer (Neg:<1:20)
[2019-09-23 18:29] LABS: EPI CELLS 4.1 /HPF (0-5/HPF); HYALINE CASTS 3 /lpf (0-8); URINE APPEARANCE CLEAR; URINE BACTERIA 3.4 /hpf (NEGATIVE); URINE BILIRUBIN NEGATIVE (NEGATIVE); URINE COLOR YELLOW; URINE GLUCOSE (UA) TRACE (NEGATIVE); URINE KETONE NEGATIVE (NEGATIVE); URINE LEUK ESTERASE NEGATIVE (NEGATIVE); URINE NITRITE NEGATIVE (NEGATIVE); URINE PROTEIN 4+ (NEGATIVE); URINE RBC 22 /hpf (0-4); URINE WBC 7 /hpf (0-5)
[2019-09-23] MEDS: CHLORHEXIDINE GLUCONATE 4% CLEANSER FOR DECOLONIZATION TP SCH (21:11)
[2019-09-23] MEDS: LABETALOL HCL 200 MG TABLET (FP) PO SCH (21:11)
[2019-09-23] MEDS ORDERED: ONDANSETRON 4 MG/2 ML VIAL IVPUSH PRN (23:53)
[2019-09-23] MEDS ORDERED: SODIUM CHLORIDE 250 ML IV PRN (23:53)
[2019-09-24] MEDS: THIAMINE HCL 200 MG/2 ML VIAL IVPB SCH ×3 (05:29→21:57)
[2019-09-24 09:28] LABS: ALBUMIN 2.4 g/dl (3.4-5.0); BILIRUBIN,TOTAL 0.6 mg/dL (0.2-1); BLOOD UREA NITROGEN 34.4 mg/dL (7-18); POTASSIUM 3.2 mmol/L (3.5-5.1); TOT PROT 5.3 g/dl (6.4-8.2)
[2019-09-24] MEDS: PANTOPRAZOLE 40 MG TABLET PO SCH (09:32)
[2019-09-24] MEDS: GABAPENTIN 300 MG CAPSULE PO SCH (09:32)
[2019-09-24] MEDS: LABETALOL HCL 200 MG TABLET (FP) PO SCH ×2 (09:33→21:57)
[2019-09-24] MEDS: amLODIPine BESYLATE 10 MG TABLET (FP) PO SCH (09:33)
[2019-09-24 09:44] LABS: CALCIUM 6.4 mg/dL (8.5-10.1)
[2019-09-24] MEDS ORDERED: MUPIROCIN 2% TOPICAL OINTMENT FOR DECOLONIZATION NS SCH (10:00)
--- NOTE | 2019-09-24 11:19 | PN ---
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
--- NOTE | 2019-09-24 12:20 | PN ---
Progress Note, Physician Chief Complaint: AMS ESRD - Current Medication List Current Medications: Active Medications Acetaminophen (Tylenol -) 650 mg PO Q6H PRN PRN Reason: PAIN SCALE 4-6 Amlodipine Besylate (Norvasc -) 10 mg PO DAILY [facility] Last Admin: 09/24/19 09:33 Dose: 10 mg Gabapentin (Neurontin -) 300 mg PO DAILY [facility] Last Admin: 09/24/19 09:32 Dose: 300 mg Sodium Chloride (Normal Saline -) 250 mls @ 3,000 mls/hr IV PRN PRN PRN Reason: Hypotension during Dialysis Labetalol HCl (Normodyne -) 200 mg PO BID [facility] Last Admin: 09/24/19 09:33 Dose: 200 mg Ondansetron HCl (Zofran Injection) 4 mg IVPUSH Q4H PRN PRN Reason: NAUSEA AND/OR VOMITING Pantoprazole Sodium (Protonix -) 40 mg PO DAILY [facility] Last Admin: 09/24/19 09:32 Dose: 40 mg Thiamine HCl (Vitamin B1 Injection -) 200 mg IVPB TID [facility] Last Admin: 09/24/19 05:29 Dose: 200 mg - Objective Vital Signs: Vital Signs Temperature 98.4 F 09/24/19 05:00 Pulse Rate 91 H 09/24/19 05:00 Respiratory Rate 18 09/24/19 05:00 Blood Pressure 164/85 09/24/19 05:00 O2 Sat by Pulse Oximetry (%) 99 09/23/19 20:00 Constitutional: Yes: Well Nourished, No Distress, Calm Cardiovascular: Yes: Regular Rate and Rhythm Respiratory: Yes: Regular Gastrointestinal: Yes: Normal Bowel Sounds, Soft Genitourinary: Yes: Yanez Present Musculoskeletal: Yes: Muscle Weakness Extremities: Yes: Amputation (LBKA) Edema: No Peripheral Pulses WNL: Yes Labs: CBC, BMP 09/23/19 08:30 09/24/19 06:00 INR, PTT INR 1.06 (0.83-1.09) 09/21/19 05:32 Problem List - Problems (1) Acute metabolic encephalopathy Assessment/Plan: -AOx3 -CT head: negative for acute pathology. mucous retention cyst. opacifications of mastoid air cells b/l. -Likely 2/2 to Uremia Problems reviewed: Yes Code(s): G93.41 - METABOLIC ENCEPHALOPATHY (2) Acute renal failure (ARF) Assessment/Plan: -Nephrology on board -Dialysis as per renal -S/p L trialysis catheter placement -trend labs -renal/ bladder US; no hydronephrosis. distended bladder -possible permacath placement Problems reviewed: Yes Code(s): N17.9 - ACUTE KIDNEY FAILURE, UNSPECIFIED (3) Altered mental status Problems reviewed: Yes Code(s): R41.82 - ALTERED MENTAL STATUS, UNSPECIFIED (4) Anemia Assessment/Plan: -H/H stable -previously low in iron -Recheck Iron profile -Stool OB negative -Monitor trend Problems reviewed: Yes Code(s): D64.9 - ANEMIA, UNSPECIFIED (5) Uremia Problems reviewed: Yes Code(s): N19 - UNSPECIFIED KIDNEY FAILURE Assessment/Plan see problem list Physical therapy
--- NOTE | 2019-09-24 13:00 | CONSULT ---
Consult Consult Specialty:: PM&R Dr Arias for Dr Yu - History of Present Illness History of Present Illness: This is a 49 year old man with a medical history of EtOH abuse, HTN, HLD, PVD, GERD, gastroparesis, UGIB, poorly controlled DM, R forearm skin graft 2/2 spider bite, s/p R TKR, s/p R achilles repair, s/p L BKA, who presented to the ED 09/19/19 with AMS x4 days, and RLE and face swelling. He was admitted to the ICU with metabolic encephalopathy 2/2 KENDRICK and metabolic acidosis. [address] head showed no acute injury. 09/20/19 CT A/P showed B pleural effusion with small ascites and subcutaneous edema. 09/20/19 RLE doppler US was negative for DVT. Renal was consulted for KENDRICK, and HD was initiated. ID and Neuro were consulted as well. He was seen by PT, and on 09/23/19 he was Minimum Assist in Transfers, and ambulated 85 feet Contact Guard with Rolling Walker; L prostheses noted to be "wobbly"- pt is using over 25- ply stockings. Physiatry is being consulted for further recommendations. - Past Medical History Cardio/Vascular: Yes: HTN, Hyperlipdemia Gastrointestinal: Yes: GERD, GI Bleed Infectious Disease: Yes: MRSA (several years ago) Musculoskeletal: Yes: Other (left thigh pain) Endocrine: Yes: Diabetes Mellitus Dermatology: Yes: Cellulitis (mrsa) Additional Medical History: ? right knee fracture - Past Surgical History Past Surgical History: Yes: Amputation (left BKA), Joint Replacement (R TKR) - Alcohol/Substance Use Hx Alcohol Use: No (Former 2 year ago) History of Substance Use: reports: Cocaine (intranasal and crack coaine abuse in past) - Smoking History Smoking history: Former smoker Have you smoked in the past 12 months: No Aproximately how many cigarettes per day: 0 If you are a former smoker, when did you quit?: 10 years ago - Social History Usual Living Arrangement: With Spouse (in elevator apartment without stairs) ADL: Independent (ambulated with L BKA prosthesis without assistive device) History of Recent Travel: No Home Medications - Allergies Allergies/Adverse Reactions: Allergies Allergy/AdvReac Type Severity Reaction Status Date / Time No Known Allergies Allergy Verified 09/16/18 13:53 - Home Medications Home Medications: Ambulatory Orders Pantoprazole Sodium [Protonix] 40 mg PO DAILY 08/01/18 Amlodipine Besylate 10 mg PO DAILY 09/20/19 Ferrous Sulfate 325 mg PO DAILY 09/20/19 Gabapentin 300 mg PO DAILY 09/20/19 Review of Systems Findings/Remarks: Denies fevers, chills, changes in vision/ hearing/ mood, CP, SOB, abdominal pain , nausea, vomiting, constipation, muscle/ joint pain. Notes R foot pain 2/2 swelling and problems getting R shoe on yesterday, +Yanez, and L residual limb neuropathic pain. Physical Exam Vital Signs: Vital Signs Temperature 98.4 F 09/24/19 05:00 Pulse Rate 91 H 09/24/19 05:00 Respiratory Rate 18 09/24/19 05:00 Blood Pressure 164/85 09/24/19 05:00 O2 Sat by Pulse Oximetry (%) 99 09/23/19 20:00 Musculoskeletal: Yes: Other (calm M sitting in bed NAD, AAO x3; full B shoulder ROM with B EE to 25 degrees, 5/5 BUE, 4+/5 B HF then 5/5 BLE s/p L BKA; 1+ RLE pitting edema, no LLE pitting edema, no B calf tenderness, L residual limb skin intact) Labs: CBC, BMP 09/23/19 08:30 09/24/19 06:00 Imaging - Results Cat Scan: Report Reviewed (as per HPI) Ultrasound: Report Reviewed (as per HPI) Assessment/Plan Impression: 1) Deficits mobility/ ADLs 2) Deconditioning 3) Gait abnormality- new L BKA socket has been molded, was to be delivered this week by [facility] at [facility]- pt to call [facility] to let them know he is admitted and for appointment next week 4) Metabolic encephalopathy 2/2 uremia 5) KENDRICK/ ARF pending renal biopsy 6) Anemia 7) hx EtOH abuse 8) hx HTN, HLD, PVD 9) hx GERD, gastroparesis 10) hx UGIB 11) hx poorly controlled DM 12) hx R forearm skin graft 2/2 spider bite 13) s/p R TKR, s/p R achilles repair 14) s/p L BKA 15) Obesity 16) Up to date flu shot, no documented pneumovax Recommendations: 1) PT for stretching strengthening ROM and functional mobility; d/w pt that, given instability from >25 ply stocks on prosthesis, he should use assistive device such as cane or walker until new socket/ prosthesis is received 2) Falls, safety precautions 3) Cardiac, diabetic precautions 4) Consider ABEL stockings/ eloise wrap RLE for edema control 5) DVT ppx: off AC 2/2 hx UGIB 6) Denies constipation on current bowel regimen 7) Monitor CBC given anemia 8) Monitor BMP given renal function; Renal is following 9) Nutrition consult for weight loss 10) Continue plan per primary team 11) D/w pt that Gabapentin is renally dosed- currently on 300mg daily which should be safe 12) Discharge planning: he will likely be able to return home with home services - he may need to be at wheelchair level (due to prosthesis socket fit) pending prosthetic Contact Lens Molder f/u Thank you for this referral.
[2019-09-24] MEDS ORDERED: POTASSIUM CHLORIDE TABS 20 MEQ TABLET.ER (FP) PO ONE (14:12)
--- NOTE | 2019-09-24 14:16 | PN ---
Progress Note, Physician History of Present Illness: Pt seen and examined at bedside. He is awake and appears comfortable. - Current Medication List Current Medications: Active Medications Acetaminophen (Tylenol -) 650 mg PO Q6H PRN PRN Reason: PAIN SCALE 4-6 Amlodipine Besylate (Norvasc -) 10 mg PO DAILY [facility] Last Admin: 09/24/19 09:33 Dose: 10 mg Gabapentin (Neurontin -) 300 mg PO DAILY [facility] Last Admin: 09/24/19 09:32 Dose: 300 mg Sodium Chloride (Normal Saline -) 250 mls @ 3,000 mls/hr IV PRN PRN PRN Reason: Hypotension during Dialysis Labetalol HCl (Normodyne -) 200 mg PO BID [facility] Last Admin: 09/24/19 09:33 Dose: 200 mg Ondansetron HCl (Zofran Injection) 4 mg IVPUSH Q4H PRN PRN Reason: NAUSEA AND/OR VOMITING Pantoprazole Sodium (Protonix -) 40 mg PO DAILY [facility] Last Admin: 09/24/19 09:32 Dose: 40 mg Potassium Chloride (K-Dur -) 40 meq PO ONCE ONE Stop: 09/24/19 14:13 Thiamine HCl (Vitamin B1 Injection -) 200 mg IVPB TID [facility] Last Admin: 09/24/19 05:29 Dose: 200 mg - Objective Vital Signs: Vital Signs Temperature 98.4 F 09/24/19 05:00 Pulse Rate 91 H 09/24/19 05:00 Respiratory Rate 18 09/24/19 05:00 Blood Pressure 164/85 09/24/19 05:00 O2 Sat by Pulse Oximetry (%) 99 09/23/19 20:00 Constitutional: Yes: Calm Eyes: Yes: Conjunctiva Clear HENT: Yes: Atraumatic Neck: Yes: Supple Cardiovascular: Yes: S1, S2 Respiratory: Yes: CTA Bilaterally Gastrointestinal: Yes: Soft Genitourinary: Yes: WNL Musculoskeletal: Yes: WNL Edema: Yes Edema: LLE: Trace, RLE: Trace Neurological: Yes: Oriented Psychiatric: Yes: Oriented Labs: CBC, BMP 09/23/19 08:30 09/24/19 06:00 INR, PTT INR 1.06 (0.83-1.09) 09/21/19 05:32 Problem List - Problems (1) Acute renal failure (ARF) Code(s): N17.9 - ACUTE KIDNEY FAILURE, UNSPECIFIED (2) KENDRICK (acute kidney injury) Code(s): N17.9 - ACUTE KIDNEY FAILURE, UNSPECIFIED Assessment/Plan Current Medications Generic Name Dose Route Start Last Admin Trade Name Freq PRN Reason Stop Dose Admin Acetaminophen 650 mg 09/23/19 18:56 Tylenol - PO Q6H PRN PAIN SCALE 4-6 Amlodipine Besylate 10 mg 09/24/19 10:00 09/24/19 09:33 Norvasc - PO 10 mg DAILY [facility] Administration Gabapentin 300 mg 09/24/19 10:00 09/24/19 09:32 Neurontin - PO 300 mg DAILY [facility] Administration Sodium Chloride 250 mls @ 3,000 mls/hr 09/23/19 23:53 Normal Saline - IV PRN PRN Hypotension during Dialysis Labetalol HCl 200 mg 09/23/19 15:03 09/24/19 09:33 Normodyne - PO 200 mg BID [facility] Administration Ondansetron HCl 4 mg 09/23/19 23:53 Zofran Injection IVPUSH Q4H PRN NAUSEA AND/OR VOMITING Pantoprazole Sodium 40 mg 09/24/19 10:00 09/24/19 09:32 Protonix - PO 40 mg DAILY [facility] Administration Potassium Chloride 40 meq 09/24/19 14:12 K-Dur - PO 09/24/19 14:13 ONCE ONE Thiamine HCl 200 mg 09/24/19 06:00 09/24/19 05:29 Vitamin B1 Injection - IVPB 200 mg TID JESUS Administration Laboratory Tests 09/20/19 09/20/19 09/20/19 10:10 11:20 11:20 SHAQ M-Flakito Not observed [place] Screen Negative c-ANCA <1:20 Proteinase 3 (PR3) <3.5 p-ANCA <1:20 Atypical p-ANCA <1:20 Myeloperoxidase Ab <9.0 Double Strand DNA Ab 1 Glomerular Base Memb Ab 3 Complement C3 83 Complement C4 22 Tot Complement (CH50) 60 Selected Entries 09/23/19 09/23/19 09/23/19 20:00 22:00 23:55 Blood Pressure 126/54 L 128/54 L 143/93 09/24/19 09/24/19 01:00 05:00 Blood Pressure 138/78 164/85 Impression 1. KENDRICK 2. met acidosis 3. confusion 4. dm 5. htn 6. hx etoh abuse 7. developemental delay 8. hyperkalemia - resolved 9. hypokalemia Plan - bp is improving - will hold off hd today - pt making urine - repeat labs in am - kidney biopsy once stable - serologies neg so far - will repeat ua
[2019-09-24] MEDS ORDERED: CHLORHEXIDINE GLUCONATE 4% CLEANSER FOR DECOLONIZATION TP SCH (22:00)
[2019-09-25] MEDS: ACETAMINOPHEN 325 MG TABLET (FP) PO PRN ×2 (02:11→19:54)
[2019-09-25] MEDS: THIAMINE HCL 200 MG/2 ML VIAL IVPB SCH ×3 (05:43→22:11)
[2019-09-25 09:05] LABS: BASO % 0.4 % (0-2.0); EOS % 8.5 % (0-4.5); HEMATOCRIT 24.6 % (35.4-49); HEMOGLOBIN 8.1 GM/dL (11.7-16.9); LYMPH % 11.8 % (8-40); MCH 28.8 pg (25.7-33.7); MCHC 33.1 g/dl (32.0-35.9); MEAN CELL VOLUME 87.2 fl (80-96); MEAN PLT VOLUME 7.9 fl (7.5-11.1); NEUT % 71.3 % (42.8-82.8); PLATELET COUNT 213 K/MM3 (134-434); RBC 2.82 M/mm3 (4.00-5.60); RDW 17.7 % (11.9-15.9); WHITE BLOOD COUNT 10.1 K/mm3 (4.0-10.0)
[2019-09-25 09:38] LABS: ALBUMIN 2.6 g/dl (3.4-5.0); BILIRUBIN,TOTAL 0.6 mg/dL (0.2-1); BLOOD UREA NITROGEN 36.2 mg/dL (7-18); CREATININE 5.1 mg/dL (0.55-1.3); MAGNESIUM 1.6 mg/dL (1.8-2.4); POTASSIUM 3.3 mmol/L (3.5-5.1); TOT PROT 5.8 g/dl (6.4-8.2)
[2019-09-25] MEDS: IRON POLYSACCHARIDES 150 MG CAPSULE PO SCH (09:53)
[2019-09-25] MEDS: LABETALOL HCL 200 MG TABLET (FP) PO SCH ×2 (09:53→22:09)
[2019-09-25] MEDS: GABAPENTIN 300 MG CAPSULE PO SCH (09:54)
[2019-09-25] MEDS: amLODIPine BESYLATE 10 MG TABLET (FP) PO SCH (09:54)
[2019-09-25] MEDS: PANTOPRAZOLE 40 MG TABLET PO SCH (09:54)
[2019-09-25 10:00] LABS: CALCIUM 6.6 mg/dL (8.5-10.1)
[2019-09-25] MEDS ORDERED: POTASSIUM CHLORIDE TABS 10 MEQ TABLET.ER (FP) PO ONE (10:15)
[2019-09-25] MEDS ORDERED: MAGNESIUM SULF 50% (8.12 MEQ/2 ML-1 GM VIAL) IVPB ONE ×2 (10:45→17:15)
[2019-09-25] MEDS ORDERED: SODIUM CHLORIDE 250 ML IV PRN (11:07)
--- NOTE | 2019-09-25 11:42 | PN ---
Progress Note, Physician Chief Complaint: AMS ESRD History of Present Illness: NAD Going for renal biopsy today BP improved - Current Medication List Current Medications: Active Medications Acetaminophen (Tylenol -) 650 mg PO Q6H PRN PRN Reason: PAIN SCALE 4-6 Last Admin: 09/25/19 02:11 Dose: 650 mg Amlodipine Besylate (Norvasc -) 10 mg PO DAILY [facility] Last Admin: 09/25/19 09:54 Dose: 10 mg Gabapentin (Neurontin -) 300 mg PO DAILY [facility] Last Admin: 09/25/19 09:54 Dose: 300 mg Sodium Chloride (Normal Saline -) 250 mls @ 3,000 mls/hr IV PRN PRN PRN Reason: Hypotension during Dialysis Stop: 09/26/19 11:07 Labetalol HCl (Normodyne -) 200 mg PO BID [facility] Last Admin: 09/25/19 09:53 Dose: 200 mg Ondansetron HCl (Zofran Injection) 4 mg IVPUSH Q4H PRN PRN Reason: NAUSEA AND/OR VOMITING Pantoprazole Sodium (Protonix -) 40 mg PO DAILY [facility] Last Admin: 09/25/19 09:54 Dose: 40 mg Polysaccharide Iron Complex (Niferex-150 -) 150 mg PO DAILY [facility] Last Admin: 09/25/19 09:53 Dose: 150 mg Thiamine HCl (Vitamin B1 Injection -) 200 mg IVPB TID [facility] Last Admin: 09/25/19 05:43 Dose: 200 mg - Objective Vital Signs: Vital Signs Temperature 98.2 F 09/25/19 09:00 Pulse Rate 82 09/25/19 09:00 Respiratory Rate 18 09/25/19 09:00 Blood Pressure 134/72 09/25/19 09:00 O2 Sat by Pulse Oximetry (%) 97 09/24/19 21:00 Constitutional: Yes: Well Nourished, No Distress, Calm Cardiovascular: Yes: Regular Rate and Rhythm Respiratory: Yes: Regular Gastrointestinal: Yes: Normal Bowel Sounds, Soft, Abdomen, Obese Genitourinary: Yes: WNL Musculoskeletal: Yes: WNL Extremities: Yes: Amputation (LLE) Edema: No Peripheral Pulses WNL: Yes Neurological: Yes: Alert, Oriented Psychiatric: Yes: Alert, Oriented Labs: CBC, BMP 09/25/19 08:27 09/25/19 08:27 INR, PTT INR 1.06 (0.83-1.09) 09/21/19 05:32 Problem List - Problems (1) Acute metabolic encephalopathy Assessment/Plan: -AOx3 -CT head: negative for acute pathology. mucous retention cyst. opacifications of mastoid air cells b/l. -Likely 2/2 to Uremia Problems reviewed: Yes Code(s): G93.41 - METABOLIC ENCEPHALOPATHY (2) Acute renal failure (ARF) Assessment/Plan: -Nephrology on board -Dialysis as per renal -S/P L trialysis catheter placement -trend labs -renal/ bladder US; no hydronephrosis. distended bladder -possible permacath placement Problems reviewed: Yes Code(s): N17.9 - ACUTE KIDNEY FAILURE, UNSPECIFIED (3) Altered mental status Problems reviewed: Yes Code(s): R41.82 - ALTERED MENTAL STATUS, UNSPECIFIED (4) Anemia Assessment/Plan: -H/H stable -previously low in iron -Iron % low -Start Iron polysaccharide daily -Stool OB negative -Monitor trend Problems reviewed: Yes Code(s): D64.9 - ANEMIA, UNSPECIFIED (5) Uremia Problems reviewed: Yes Code(s): N19 - UNSPECIFIED KIDNEY FAILURE (6) HTN (hypertension) Assessment/Plan: -Continue labetalol -Added amlodipine -BP improved Problems reviewed: Yes Code(s): I10 - ESSENTIAL (PRIMARY) HYPERTENSION Assessment/Plan see problem list Physical therapy
--- NOTE | 2019-09-25 13:27 | PN ---
Progress Note, Physician History of Present Illness: Pt seen and examined at bedside. He is awake and alert. He is getting his kidney biopsy today. - Current Medication List Current Medications: Active Medications Acetaminophen (Tylenol -) 650 mg PO Q6H PRN PRN Reason: PAIN SCALE 4-6 Last Admin: 09/25/19 02:11 Dose: 650 mg Amlodipine Besylate (Norvasc -) 10 mg PO DAILY [facility] Last Admin: 09/25/19 09:54 Dose: 10 mg Gabapentin (Neurontin -) 300 mg PO DAILY [facility] Last Admin: 09/25/19 09:54 Dose: 300 mg Sodium Chloride (Normal Saline -) 250 mls @ 3,000 mls/hr IV PRN PRN PRN Reason: Hypotension during Dialysis Stop: 09/26/19 11:07 Labetalol HCl (Normodyne -) 200 mg PO BID [facility] Last Admin: 09/25/19 09:53 Dose: 200 mg Ondansetron HCl (Zofran Injection) 4 mg IVPUSH Q4H PRN PRN Reason: NAUSEA AND/OR VOMITING Pantoprazole Sodium (Protonix -) 40 mg PO DAILY [facility] Last Admin: 09/25/19 09:54 Dose: 40 mg Polysaccharide Iron Complex (Niferex-150 -) 150 mg PO DAILY [facility] Last Admin: 09/25/19 09:53 Dose: 150 mg Thiamine HCl (Vitamin B1 Injection -) 200 mg IVPB TID [facility] Last Admin: 09/25/19 05:43 Dose: 200 mg - Objective Vital Signs: Vital Signs Temperature 98.2 F 09/25/19 09:00 Pulse Rate 85 09/25/19 12:23 Respiratory Rate 16 09/25/19 12:23 Blood Pressure 149/87 09/25/19 12:23 O2 Sat by Pulse Oximetry (%) 96 09/25/19 12:23 Constitutional: Yes: Calm Eyes: Yes: Conjunctiva Clear HENT: Yes: Atraumatic Neck: Yes: Supple Cardiovascular: Yes: S1, S2 Respiratory: Yes: CTA Bilaterally Gastrointestinal: Yes: Soft Genitourinary: Yes: WNL Musculoskeletal: Yes: WNL Edema: No Neurological: Yes: Oriented Labs: CBC, BMP 09/25/19 08:27 09/25/19 08:27 INR, PTT INR 1.06 (0.83-1.09) 09/21/19 05:32 Problem List - Problems (1) Acute renal failure (ARF) Code(s): N17.9 - ACUTE KIDNEY FAILURE, UNSPECIFIED (2) KENDRICK (acute kidney injury) Code(s): N17.9 - ACUTE KIDNEY FAILURE, UNSPECIFIED Assessment/Plan Current Medications Generic Name Dose Route Start Last Admin Trade Name Freq PRN Reason Stop Dose Admin Acetaminophen 650 mg 09/23/19 18:56 09/25/19 02:11 Tylenol - PO 650 mg Q6H PRN Administration PAIN SCALE 4-6 Amlodipine Besylate 10 mg 09/24/19 10:00 09/25/19 09:54 Norvasc - PO 10 mg DAILY [facility] Administration Gabapentin 300 mg 09/24/19 10:00 09/25/19 09:54 Neurontin - PO 300 mg DAILY [facility] Administration Sodium Chloride 250 mls @ 3,000 mls/hr 09/25/19 11:07 Normal Saline - IV 09/26/19 11:07 PRN PRN Hypotension during Dialysis Labetalol HCl 200 mg 09/23/19 15:03 09/25/19 09:53 Normodyne - PO 200 mg BID [facility] Administration Ondansetron HCl 4 mg 09/23/19 23:53 Zofran Injection IVPUSH Q4H PRN NAUSEA AND/OR VOMITING Pantoprazole Sodium 40 mg 09/24/19 10:00 09/25/19 09:54 Protonix - PO 40 mg DAILY [facility] Administration Polysaccharide Iron Complex 150 mg 09/25/19 10:00 09/25/19 09:53 Niferex-150 - PO 150 mg DAILY [facility] Administration Thiamine HCl 200 mg 09/24/19 06:00 09/25/19 05:43 Vitamin B1 Injection - IVPB 200 mg TID [facility]US Administration Impression 1. KENDRICK 2. met acidosis 3. confusion 4. dm 5. htn 6. hx etoh abuse 7. developemental delay 8. hyperkalemia - resolved 9. hypokalemia Plan - bp stabilizing - HD today - kidney biopsy today - repeat labs in am - serologies neg so far
[2019-09-25] MEDS ORDERED: PT OWN MED DRAWER 7, Y5N ONE (16:55)
[2019-09-26] MEDS: THIAMINE HCL 200 MG/2 ML VIAL IVPB SCH ×3 (06:28→22:37)
[2019-09-26] MEDS: LABETALOL HCL 200 MG TABLET (FP) PO SCH ×3 (09:49→23:50)
[2019-09-26] MEDS: PANTOPRAZOLE 40 MG TABLET PO SCH (09:51)
[2019-09-26] MEDS: GABAPENTIN 300 MG CAPSULE PO SCH (09:51)
[2019-09-26] MEDS: IRON POLYSACCHARIDES 150 MG CAPSULE PO SCH (09:51)
[2019-09-26] MEDS: amLODIPine BESYLATE 10 MG TABLET (FP) PO SCH (09:51)
[2019-09-26 10:47] LABS: BASO % 0.2 % (0-2.0); EOS % 7.5 % (0-4.5); HEMATOCRIT 23.9 % (35.4-49); HEMOGLOBIN 7.6 GM/dL (11.7-16.9); LYMPH % 8.2 % (8-40); MCH 28.1 pg (25.7-33.7); MCHC 31.7 g/dl (32.0-35.9); MEAN CELL VOLUME 88.6 fl (80-96); MEAN PLT VOLUME 8.2 fl (7.5-11.1); MONO % 8.2 % (3.8-10.2); NEUT % 75.9 % (42.8-82.8); PLATELET COUNT 195 K/MM3 (134-434); RDW 17.1 % (11.9-15.9); WHITE BLOOD COUNT 11.2 K/mm3 (4.0-10.0)
[2019-09-26 11:24] LABS: ALBUMIN 2.5 g/dl (3.4-5.0); BILIRUBIN,TOTAL 0.6 mg/dL (0.2-1); POTASSIUM 3.8 mmol/L (3.5-5.1); TOT PROT 5.7 g/dl (6.4-8.2)
[2019-09-26 11:29] LABS: CALCIUM 6.9 mg/dL (8.5-10.1)
--- NOTE | 2019-09-26 12:17 | PN ---
Progress Note, Physician Chief Complaint: AMS ESRD History of Present Illness: NAD Going for renal biopsy today BP improved - Current Medication List Current Medications: Active Medications Acetaminophen (Tylenol -) 650 mg PO Q6H PRN PRN Reason: PAIN SCALE 4-6 Last Admin: 09/25/19 19:54 Dose: 650 mg Amlodipine Besylate (Norvasc -) 10 mg PO DAILY [facility] Last Admin: 09/26/19 09:51 Dose: 10 mg Gabapentin (Neurontin -) 300 mg PO DAILY [facility] Last Admin: 09/26/19 09:51 Dose: 300 mg Sodium Chloride (Normal Saline -) 250 mls @ 3,000 mls/hr IV PRN PRN PRN Reason: Hypotension during Dialysis Stop: 09/26/19 11:07 Labetalol HCl (Normodyne -) 300 mg PO BID [facility] Last Admin: 09/26/19 09:49 Dose: 300 mg Ondansetron HCl (Zofran Injection) 4 mg IVPUSH Q4H PRN PRN Reason: NAUSEA AND/OR VOMITING Pantoprazole Sodium (Protonix -) 40 mg PO DAILY [facility] Last Admin: 09/26/19 09:51 Dose: 40 mg Polysaccharide Iron Complex (Niferex-150 -) 150 mg PO DAILY [facility] Last Admin: 09/26/19 09:51 Dose: 150 mg Thiamine HCl (Vitamin B1 Injection -) 200 mg IVPB TID [facility] Last Admin: 09/26/19 06:28 Dose: 200 mg - Objective Vital Signs: Vital Signs Temperature 99.3 F 09/26/19 09:19 Pulse Rate 84 09/26/19 12:04 Respiratory Rate 12 09/26/19 12:04 Blood Pressure 139/79 09/26/19 12:04 O2 Sat by Pulse Oximetry (%) 100 09/26/19 12:04 Constitutional: Yes: Well Nourished, No Distress, Calm Cardiovascular: Yes: Regular Rate and Rhythm Respiratory: Yes: Regular Gastrointestinal: Yes: Normal Bowel Sounds, Soft Musculoskeletal: Yes: WNL Extremities: Yes: Amputation (LLE) Edema: No Peripheral Pulses WNL: Yes Neurological: Yes: Alert, Oriented Psychiatric: Yes: Alert, Oriented Labs: CBC, BMP 09/26/19 10:10 09/26/19 10:10 INR, PTT INR 1.06 (0.83-1.09) 09/21/19 05:32 Problem List - Problems (1) Acute metabolic encephalopathy Assessment/Plan: -AOx3 -CT head: negative for acute pathology. mucous retention cyst. opacifications of mastoid air cells b/l. -Likely 2/2 to Uremia Problems reviewed: Yes Code(s): G93.41 - METABOLIC ENCEPHALOPATHY (2) Acute renal failure (ARF) Assessment/Plan: -Nephrology on board -Dialysis as per renal -S/P L trialysis catheter placement -trend labs -renal/ bladder US; no hydronephrosis. distended bladder -possible permacath placement Problems reviewed: Yes Code(s): N17.9 - ACUTE KIDNEY FAILURE, UNSPECIFIED (3) Altered mental status Problems reviewed: Yes Code(s): R41.82 - ALTERED MENTAL STATUS, UNSPECIFIED (4) Anemia Assessment/Plan: -H/H stable -previously low in iron -Iron % low -Start Iron polysaccharide daily -Stool OB negative -Monitor trend Problems reviewed: Yes Code(s): D64.9 - ANEMIA, UNSPECIFIED (5) Uremia Problems reviewed: Yes Code(s): N19 - UNSPECIFIED KIDNEY FAILURE (6) HTN (hypertension) Assessment/Plan: -Continue labetalol -Added amlodipine -BP improved Problems reviewed: Yes Code(s): I10 - ESSENTIAL (PRIMARY) HYPERTENSION Assessment/Plan see problem list Physical therapy
--- NOTE | 2019-09-26 13:54 | PN ---
Progress Note, Physician History of Present Illness: Pt seen and examined at bedside. He had the kidney biopsy today. He is awake and alert. - Current Medication List Current Medications: Active Medications Acetaminophen (Tylenol -) 650 mg PO Q6H PRN PRN Reason: PAIN SCALE 4-6 Last Admin: 09/25/19 19:54 Dose: 650 mg Amlodipine Besylate (Norvasc -) 10 mg PO DAILY [facility] Last Admin: 09/26/19 09:51 Dose: 10 mg Gabapentin (Neurontin -) 300 mg PO DAILY [facility] Last Admin: 09/26/19 09:51 Dose: 300 mg Sodium Chloride (Normal Saline -) 250 mls @ 3,000 mls/hr IV PRN PRN PRN Reason: Hypotension during Dialysis Stop: 09/26/19 11:07 Labetalol HCl (Normodyne -) 300 mg PO BID [facility] Last Admin: 09/26/19 09:49 Dose: 300 mg Ondansetron HCl (Zofran Injection) 4 mg IVPUSH Q4H PRN PRN Reason: NAUSEA AND/OR VOMITING Pantoprazole Sodium (Protonix -) 40 mg PO DAILY [facility] Last Admin: 09/26/19 09:51 Dose: 40 mg Polysaccharide Iron Complex (Niferex-150 -) 150 mg PO DAILY [facility] Last Admin: 09/26/19 09:51 Dose: 150 mg Thiamine HCl (Vitamin B1 Injection -) 200 mg IVPB TID [facility] Last Admin: 09/26/19 06:28 Dose: 200 mg - Objective Vital Signs: Vital Signs Temperature 98.4 F 09/26/19 13:10 Pulse Rate 79 09/26/19 13:10 Respiratory Rate 18 09/26/19 13:10 Blood Pressure 117/84 09/26/19 13:10 O2 Sat by Pulse Oximetry (%) 100 09/26/19 12:14 Constitutional: Yes: Calm Eyes: Yes: Conjunctiva Clear HENT: Yes: Atraumatic Neck: Yes: Supple Cardiovascular: Yes: S1, S2 Respiratory: Yes: CTA Bilaterally Gastrointestinal: Yes: Soft Genitourinary: Yes: WNL Musculoskeletal: Yes: WNL Edema: No Neurological: Yes: Oriented Psychiatric: Yes: Oriented Labs: CBC, BMP 09/26/19 10:10 09/26/19 10:10 INR, PTT INR 1.06 (0.83-1.09) 09/21/19 05:32 Problem List - Problems (1) Acute renal failure (ARF) Code(s): N17.9 - ACUTE KIDNEY FAILURE, UNSPECIFIED (2) KENDRICK (acute kidney injury) Code(s): N17.9 - ACUTE KIDNEY FAILURE, UNSPECIFIED Assessment/Plan Current Medications Generic Name Dose Route Start Last Admin Trade Name Freq PRN Reason Stop Dose Admin Acetaminophen 650 mg 09/23/19 18:56 09/25/19 19:54 Tylenol - PO 650 mg Q6H PRN Administration PAIN SCALE 4-6 Amlodipine Besylate 10 mg 09/24/19 10:00 09/26/19 09:51 Norvasc - PO 10 mg DAILY [facility] Administration Gabapentin 300 mg 09/24/19 10:00 09/26/19 09:51 Neurontin - PO 300 mg DAILY [facility] Administration Sodium Chloride 250 mls @ 3,000 mls/hr 09/25/19 11:07 Normal Saline - IV 09/26/19 11:07 PRN PRN Hypotension during Dialysis Labetalol HCl 300 mg 09/25/19 13:25 09/26/19 09:49 Normodyne - PO 300 mg BID [facility] Administration Ondansetron HCl 4 mg 09/23/19 23:53 Zofran Injection IVPUSH Q4H PRN NAUSEA AND/OR VOMITING Pantoprazole Sodium 40 mg 09/24/19 10:00 09/26/19 09:51 Protonix - PO 40 mg DAILY [facility] Administration Polysaccharide Iron Complex 150 mg 09/25/19 10:00 09/26/19 09:51 Niferex-150 - PO 150 mg DAILY [facility] Administration Thiamine HCl 200 mg 09/24/19 06:00 09/26/19 06:28 Vitamin B1 Injection - IVPB 200 mg TID [facility] Administration Impression 1. KENDRICK 2. met acidosis 3. confusion 4. dm 5. htn 6. hx etoh abuse 7. developemental delay 8. hyperkalemia - resolved 9. hypokalemia Plan - s/p kidney biopsy - repeat cbc - monitor vitals - transfuse if hg dropping - vascular for permacath - will need to d/c [facility]
[2019-09-26 14:52] VITALS: BMI 34.4
--- NOTE | 2019-09-26 14:52 | SPA.PREOP ---
- PRE-OP NOTE Dx: ESRD Planned Procedure: Permacath placement Surgeon: Costa Jennings, DO Last Vital Signs Temp Pulse Resp BP Pulse Ox 98.4 F 79 18 117/84 100 09/26/19 13:10 09/26/19 13:10 09/26/19 13:10 09/26/19 13:10 09/26/19 12:14 Lab Results WBC 11.2 K/mm3 (4.0-10.0) H 09/26/19 10:10 RBC 2.70 M/mm3 (4.00-5.60) L 09/26/19 10:10 Hgb 7.6 GM/dL (11.7-16.9) L 09/26/19 10:10 Hct 23.9 % (35.4-49) L 09/26/19 10:10 MCV 88.6 fl (80-96) 09/26/19 10:10 MCHC 31.7 g/dl (32.0-35.9) L 09/26/19 10:10 RDW 17.1 % (11.9-15.9) H 09/26/19 10:10 Plt Count 195 K/MM3 (134-434) 09/26/19 10:10 Sodium 141 mmol/L (136-145) 09/26/19 10:10 Potassium 3.8 mmol/L (3.5-5.1) 09/26/19 10:10 Chloride 110 mmol/L (98-107) H 09/26/19 10:10 Carbon Dioxide 26 mmol/L (21-32) 09/26/19 10:10 Anion Gap 6 MMOL/L (8-16) L 09/26/19 10:10 BUN 23.0 mg/dL (7-18) H 09/26/19 10:10 Creatinine 4.0 mg/dL (0.55-1.3) H 09/26/19 10:10 Random Glucose 119 mg/dL (74-106) H 09/26/19 10:10 Calcium 6.9 mg/dL (8.5-10.1) L* 09/26/19 10:10 Blood Type A POSITIVE 09/21/19 12:30 Antibody Screen Negative 09/21/19 12:30 INR 1.06 (0.83-1.09) 09/21/19 05:32 - ASSESSMENT/PLAN 1. Make NPO after midnight except po meds 2. GI/DVT PPX 3. Medical optimization / clearance 4. Consent to be obtained by surgeon after risks, benefits and alternatives discussed with patient and or Health Care Proxy.
[2019-09-26 17:53] LABS: HEMATOCRIT 20.9 % (35.4-49); MCHC 32.9 g/dl (32.0-35.9); MEAN CELL VOLUME 88.2 fl (80-96); MEAN PLT VOLUME 8.5 fl (7.5-11.1); PLATELET COUNT 198 K/MM3 (134-434); RBC 2.37 M/mm3 (4.00-5.60); RDW 17.2 % (11.9-15.9); WHITE BLOOD COUNT 9.5 K/mm3 (4.0-10.0)
[2019-09-26 17:58] LABS: HEMOGLOBIN 6.9 GM/dL (11.7-16.9)
[2019-09-26] MEDS ORDERED: DESMOPRESSIN ACETATE 4 MCG/ML AMP IVPB ONE ×3 (18:55→20:45)
[2019-09-26] MEDS: CALCIUM 500MG/VIT-D 200 UNITS COMBO TABLET (FP) PO SCH (21:35)
[2019-09-26] MEDS: ACETAMINOPHEN 325 MG TABLET (FP) PO PRN (21:58)
[2019-09-27] MEDS: THIAMINE HCL 200 MG/2 ML VIAL IVPB SCH ×3 (10:06→21:41)
[2019-09-27 10:26] LABS: BASO % 0.2 % (0-2.0); EOS % 6.7 % (0-4.5); HEMATOCRIT 26.5 % (35.4-49); HEMOGLOBIN 8.6 GM/dL (11.7-16.9); LYMPH % 8.2 % (8-40); MCH 28.6 pg (25.7-33.7); MCHC 32.6 g/dl (32.0-35.9); MEAN CELL VOLUME 87.6 fl (80-96); MEAN PLT VOLUME 7.9 fl (7.5-11.1); MONO % 7.1 % (3.8-10.2); NEUT % 77.8 % (42.8-82.8); PLATELET COUNT 202 K/MM3 (134-434); RBC 3.02 M/mm3 (4.00-5.60); RDW 16.6 % (11.9-15.9); WHITE BLOOD COUNT 12.1 K/mm3 (4.0-10.0)
--- NOTE | 2019-09-27 10:56 | PN ---
Progress Note, Physician Chief Complaint: AMS ESRD History of Present Illness: Previous notes and events reviewed awake and alert NAD patient is NPO for permacath placement Hg 6.9 last night, s/p 2U PRBC transfusion last night pending repeat CBC result s/p renal biopsy yesterday - Current Medication List Current Medications: Active Medications Acetaminophen (Tylenol -) 650 mg PO Q6H PRN PRN Reason: PAIN SCALE 4-6 Last Admin: 09/26/19 21:58 Dose: 650 mg Amlodipine Besylate (Norvasc -) 10 mg PO DAILY [facility] Last Admin: 09/26/19 09:51 Dose: 10 mg Calcium Carbonate/Cholecalciferol (Os-Shaheen 500+D -) 2 tab PO DAILY [facility] Last Admin: 09/26/19 21:35 Dose: 2 tab Gabapentin (Neurontin -) 300 mg PO DAILY [facility] Last Admin: 09/26/19 09:51 Dose: 300 mg Sodium Chloride (Normal Saline -) 250 mls @ 3,000 mls/hr IV PRN PRN PRN Reason: Hypotension during Dialysis Stop: 09/26/19 11:07 Labetalol HCl (Normodyne -) 300 mg PO BID [facility] Last Admin: 09/26/19 23:50 Dose: 300 mg Ondansetron HCl (Zofran Injection) 4 mg IVPUSH Q4H PRN PRN Reason: NAUSEA AND/OR VOMITING Pantoprazole Sodium (Protonix -) 40 mg PO DAILY [facility] Last Admin: 09/26/19 09:51 Dose: 40 mg Polysaccharide Iron Complex (Niferex-150 -) 150 mg PO DAILY [facility] Last Admin: 09/26/19 09:51 Dose: 150 mg Thiamine HCl (Vitamin B1 Injection -) 200 mg IVPB TID [facility] Last Admin: 09/26/19 22:37 Dose: 200 mg - Objective Vital Signs: Vital Signs Temperature 99.0 F 09/27/19 05:36 Pulse Rate 91 H 09/27/19 05:36 Respiratory Rate 18 09/27/19 05:36 Blood Pressure 141/67 09/27/19 05:36 O2 Sat by Pulse Oximetry (%) 100 09/26/19 21:00 Constitutional: Yes: No Distress, Calm Eyes: Yes: Conjunctiva Clear HENT: Yes: Atraumatic Cardiovascular: Yes: Regular Rate and Rhythm Respiratory: Yes: Regular, CTA Bilaterally Gastrointestinal: Yes: Normal Bowel Sounds, Soft Musculoskeletal: Yes: Muscle Weakness Extremities: Yes: Amputation (LLE) Edema: No Neurological: Yes: Alert, Oriented Psychiatric: Yes: Alert, Oriented, Agitated Labs: CBC, BMP 09/27/19 10:15 INR, PTT INR 1.06 (0.83-1.09) 09/21/19 05:32 Problem List - Problems (1) Acute metabolic encephalopathy Assessment/Plan: -resolved -Head CT scan shows no CT gross evidence of acute intracranial pathology -BC and UC neg Code(s): G93.41 - METABOLIC ENCEPHALOPATHY (2) Anemia Assessment/Plan: -Hg 6.9 -transfused 2U PRBC last night -repeat CBC result pending -monitor Hg daily -transfuse for Hg <8.0 -Anemia profile shows low Iron, low Iron Sat, low TIBC -Iron Polysaccharide daily Code(s): D64.9 - ANEMIA, UNSPECIFIED (3) HTN (hypertension) Assessment/Plan: -Labetolol, Amlodipine -low Na diet Code(s): I10 - ESSENTIAL (PRIMARY) HYPERTENSION (4) Acute renal failure (ARF) Assessment/Plan: -Renal on board -BUN/Cr 23.0/4.0 -pending permacath placement today -will need HD -s/p renal biopsy yesterday -Renal US shows both kidneys are small but appear morphologically unremarkable without gross evidence of hydronephrosis or stones Code(s): N17.9 - ACUTE KIDNEY FAILURE, UNSPECIFIED Assessment/Plan see problem list dvt ppx will be d/c home after permacath placement and has HD center set up
[2019-09-27 10:57] LABS: BILIRUBIN,TOTAL 1.9 mg/dL (0.2-1); BLOOD UREA NITROGEN 28.7 mg/dL (7-18); CREATININE 4.7 mg/dL (0.55-1.3); POTASSIUM 4.1 mmol/L (3.5-5.1); TOT PROT 6.3 g/dl (6.4-8.2)
[2019-09-27 11:04] LABS: CALCIUM 6.9 mg/dL (8.5-10.1)
[2019-09-27] MEDS: amLODIPine BESYLATE 10 MG TABLET (FP) PO SCH (11:07)
[2019-09-27] MEDS: LABETALOL HCL 200 MG TABLET (FP) PO SCH ×2 (11:07→21:39)
[2019-09-27] MEDS: GABAPENTIN 300 MG CAPSULE PO SCH (11:11)
[2019-09-27] MEDS: IRON POLYSACCHARIDES 150 MG CAPSULE PO SCH (11:11)
[2019-09-27] MEDS: PANTOPRAZOLE 40 MG TABLET PO SCH (11:11)
[2019-09-27] MEDS: CALCIUM 500MG/VIT-D 200 UNITS COMBO TABLET (FP) PO SCH (11:11)
[2019-09-27] MEDS ORDERED: EPOETIN ALFA 2,000 UNIT/1 ML VIAL IVPUSH ONE (13:18)
[2019-09-27] MEDS ORDERED: SODIUM CHLORIDE 250 ML IV PRN ×2 (13:18→19:15)
--- NOTE | 2019-09-27 13:18 | PN ---
Progress Note, Physician History of Present Illness: Pt seen and examined at bedside. His behavior has been difficult to manage today. He is anxious and wants to go home. - Current Medication List Current Medications: Active Medications Acetaminophen (Tylenol -) 650 mg PO Q6H PRN PRN Reason: PAIN SCALE 4-6 Last Admin: 09/26/19 21:58 Dose: 650 mg Amlodipine Besylate (Norvasc -) 10 mg PO DAILY [facility] Last Admin: 09/27/19 11:07 Dose: 10 mg Calcium Carbonate/Cholecalciferol (Os-Shaheen 500+D -) 2 tab PO DAILY [facility] Last Admin: 09/27/19 11:11 Dose: Not Given Gabapentin (Neurontin -) 300 mg PO DAILY [facility] Last Admin: 09/27/19 11:11 Dose: Not Given Sodium Chloride (Normal Saline -) 250 mls @ 3,000 mls/hr IV PRN PRN PRN Reason: Hypotension during Dialysis Stop: 09/26/19 11:07 Labetalol HCl (Normodyne -) 300 mg PO BID [facility] Last Admin: 09/27/19 11:07 Dose: 300 mg Ondansetron HCl (Zofran Injection) 4 mg IVPUSH Q4H PRN PRN Reason: NAUSEA AND/OR VOMITING Pantoprazole Sodium (Protonix -) 40 mg PO DAILY [facility] Last Admin: 09/27/19 11:11 Dose: Not Given Polysaccharide Iron Complex (Niferex-150 -) 150 mg PO DAILY [facility] Last Admin: 09/27/19 11:11 Dose: Not Given Thiamine HCl (Vitamin B1 Injection -) 200 mg IVPB TID [facility] Last Admin: 09/26/19 22:37 Dose: 200 mg - Objective Vital Signs: Vital Signs Temperature 98.2 F 09/27/19 09:00 Pulse Rate 82 09/27/19 09:00 Respiratory Rate 18 09/27/19 09:00 Blood Pressure 144/77 09/27/19 09:00 O2 Sat by Pulse Oximetry (%) 100 09/26/19 21:00 Constitutional: Yes: Calm Eyes: Yes: Conjunctiva Clear HENT: Yes: Atraumatic Neck: Yes: Supple Cardiovascular: Yes: S1, S2 Respiratory: Yes: CTA Bilaterally Gastrointestinal: Yes: Normal Bowel Sounds, Soft Genitourinary: Yes: WNL Musculoskeletal: Yes: WNL Edema: Yes Neurological: Yes: Oriented Psychiatric: Yes: Oriented, Agitated Labs: CBC, BMP 09/27/19 10:15 09/27/19 10:15 INR, PTT INR 1.06 (0.83-1.09) 09/21/19 05:32 Problem List - Problems (1) Acute renal failure (ARF) Code(s): N17.9 - ACUTE KIDNEY FAILURE, UNSPECIFIED (2) KENDRICK (acute kidney injury) Code(s): N17.9 - ACUTE KIDNEY FAILURE, UNSPECIFIED Assessment/Plan Current Medications Generic Name Dose Route Start Last Admin Trade Name Freq PRN Reason Stop Dose Admin Acetaminophen 650 mg 09/23/19 18:56 09/26/19 21:58 Tylenol - PO 650 mg Q6H PRN Administration PAIN SCALE 4-6 Amlodipine Besylate 10 mg 09/24/19 10:00 09/27/19 11:07 Norvasc - PO 10 mg DAILY [facility] Administration Calcium Carbonate/Cholecalciferol 2 tab 09/26/19 18:00 09/27/19 11:11 Os-Shaheen 500+D - PO Not Given DAILY [facility] Gabapentin 300 mg 09/24/19 10:00 09/27/19 11:11 Neurontin - PO Not Given DAILY [facility] Sodium Chloride 250 mls @ 3,000 mls/hr 09/25/19 11:07 Normal Saline - IV 09/26/19 11:07 PRN PRN Hypotension during Dialysis Labetalol HCl 300 mg 09/25/19 13:25 09/27/19 11:07 Normodyne - PO 300 mg BID [facility] Administration Ondansetron HCl 4 mg 09/23/19 23:53 Zofran Injection IVPUSH Q4H PRN NAUSEA AND/OR VOMITING Pantoprazole Sodium 40 mg 09/24/19 10:00 09/27/19 11:11 Protonix - PO Not Given DAILY [facility] Polysaccharide Iron Complex 150 mg 09/25/19 10:00 09/27/19 11:11 Niferex-150 - PO Not Given DAILY [facility] Thiamine HCl 200 mg 09/24/19 06:00 09/26/19 22:37 Vitamin B1 Injection - IVPB 200 mg TID [facility] Administration Impression 1. KENDRICK 2. met acidosis 3. confusion 4. dm 5. htn 6. hx etoh abuse 7. developemental delay 8. hyperkalemia - resolved 9. hypokalemia Plan - follow up kidney biopsy - pt s/p prbc transfusion - repeat cbc in am - permacath today - d/c [facility] - HD today - pending placement for HD
[2019-09-27] MEDS ORDERED: HEPARIN NA (PORCINE) 5,000 UNITS/ML 1ML VIAL ONE (14:35)
[2019-09-27] MEDS ORDERED: LIDOCAINE HCL 1%, 10 MG/ML (20ML VIAL) ONE (14:35)
[2019-09-27] MEDS ORDERED: EPHEDRINE SULFATE/0.9% NACL/PF 50 MG/10 ML SYRINGE NR ONE (15:08)
[2019-09-27] MEDS ORDERED: PROPOFOL 20 ML ONE ×2 (15:09→15:49)
[2019-09-27] MEDS ORDERED: MIDAZOLAM HCL 2 MG/2 ML SINGLE DOSE VIAL ONE ×2 (15:09)
[2019-09-27] MEDS ORDERED: ceFAZolin SODIUM 1 GM VIAL IVPB ONE (15:20)
[2019-09-27] MEDS ORDERED: LIDOCAINE HCL 1%, 10 MG/ML (20ML VIAL) INF ONE (15:32)
[2019-09-27] MEDS ORDERED: oxyCODONE HCL 5 MG TABLET PO PRN (15:53)
[2019-09-27] MEDS ORDERED: ONDANSETRON 4 MG/2 ML VIAL IVPUSH PRN ×2 (15:53→16:16)
[2019-09-27] MEDS ORDERED: PROMETHAZINE HCL 25 MG/1 ML VIAL IVPUSH PRN ×2 (15:53→16:16)
--- NOTE | 2019-09-27 16:03 | OP ---
Operative Note - Note: Operative Date: 09/27/19 Pre-Operative Diagnosis: ESRD Operation: Insertion of permacath Post-Operative Diagnosis: Same as Pre-op Surgeon: Costa Jennings Anesthesia: Fractional Estimated Blood Loss (mls): 5 Operative Report Dictated: Yes
[2019-09-27] MEDS ORDERED: EPOETIN ALFA 10,000 UNIT/1 ML VIAL IVPUSH ONE (19:30)
[2019-09-27] MEDS: oxyCODONE HCL 5 MG TABLET PO PRN (21:43)
[2019-09-28] MEDS: ONDANSETRON 4 MG/2 ML VIAL IVPUSH PRN ×3 (04:34→20:24)
[2019-09-28] MEDS: THIAMINE HCL 200 MG/2 ML VIAL IVPB SCH ×3 (06:21→23:10)
[2019-09-28] MEDS: oxyCODONE HCL 5 MG TABLET PO PRN (09:44)
[2019-09-28] MEDS: LABETALOL HCL 200 MG TABLET (FP) PO SCH ×2 (09:45→23:08)
[2019-09-28] MEDS: amLODIPine BESYLATE 10 MG TABLET (FP) PO SCH (09:46)
[2019-09-28] MEDS: GABAPENTIN 300 MG CAPSULE PO SCH (09:46)
[2019-09-28] MEDS: PANTOPRAZOLE 40 MG TABLET PO SCH (09:46)
[2019-09-28] MEDS: IRON POLYSACCHARIDES 150 MG CAPSULE PO SCH (09:46)
[2019-09-28] MEDS: CALCIUM 500MG/VIT-D 200 UNITS COMBO TABLET (FP) PO SCH (09:46)
--- NOTE | 2019-09-28 10:24 | PN ---
Progress Note (short form) - Note Progress Note: Post op day#1.S/p Permacath placement under MAC uneventful.Patient stable.No any anesthesia related problem.Patient Dc from the anesthesia care.
--- NOTE | 2019-09-28 13:00 | PN ---
Progress Note, Physician Chief Complaint: AMS ESRD History of Present Illness: NAD Had Perma cath placed yesterday Operative Date: 09/27/19 Pre-Operative Diagnosis: ESRD Operation: Insertion of permacath Surgeon: Costa Jennings Awaiting acceptance at HD center after insurance auth - Current Medication List Current Medications: Active Medications Acetaminophen (Tylenol -) 650 mg PO Q6H PRN PRN Reason: PAIN SCALE 4-6 Amlodipine Besylate (Norvasc -) 10 mg PO DAILY [facility] Last Admin: 09/28/19 09:46 Dose: 10 mg Calcium Carbonate/Cholecalciferol (Os-Shaheen 500+D -) 2 tab PO DAILY [facility] Last Admin: 09/28/19 09:46 Dose: 2 tab Fentanyl (Sublimaze Injection -) 50 mcg IVPUSH Q5M PRN PRN Reason: PAIN-PACU ORDER X 4 DOSES ONLY Gabapentin (Neurontin -) 300 mg PO DAILY [facility] Last Admin: 09/28/19 09:46 Dose: 300 mg Sodium Chloride (Normal Saline -) 250 mls @ 3,000 mls/hr IV PRN PRN PRN Reason: Hypotension during Dialysis Stop: 09/28/19 19:14 Labetalol HCl (Normodyne -) 300 mg PO BID [facility] Last Admin: 09/28/19 09:45 Dose: 300 mg Ondansetron HCl (Zofran Injection) 4 mg IVPUSH Q4H PRN PRN Reason: NAUSEA AND/OR VOMITING Last Admin: 09/28/19 04:34 Dose: 4 mg Ondansetron HCl (Zofran Injection) 4 mg IVPUSH Q6H PRN PRN Reason: NAUSEA AND/OR VOMITING Oxycodone HCl (Roxicodone -) 10 mg PO Q4H PRN PRN Reason: PAIN LEVEL 6-10 Stop: 09/28/19 15:52 Last Admin: 09/28/19 09:44 Dose: 10 mg Pantoprazole Sodium (Protonix -) 40 mg PO DAILY [facility] Last Admin: 09/28/19 09:46 Dose: 40 mg Polysaccharide Iron Complex (Niferex-150 -) 150 mg PO DAILY [facility] Last Admin: 09/28/19 09:46 Dose: 150 mg Promethazine HCl (Phenergan Injection -) 12.5 mg IVPUSH Q6H PRN PRN Reason: NAUSEA-FOR RESCUE AFTER 15 MIN Thiamine HCl (Vitamin B1 Injection -) 200 mg IVPB TID [facility] Last Admin: 09/28/19 06:21 Dose: 200 mg - Objective Vital Signs: Vital Signs Temperature 99.1 F 09/28/19 09:47 Pulse Rate 85 09/28/19 09:47 Respiratory Rate 18 09/28/19 09:47 Blood Pressure 142/76 09/28/19 09:47 O2 Sat by Pulse Oximetry (%) 97 09/27/19 21:00 Constitutional: Yes: Well Nourished, No Distress, Calm Cardiovascular: Yes: Regular Rate and Rhythm Respiratory: Yes: Regular Gastrointestinal: Yes: Normal Bowel Sounds, Soft, Abdomen, Obese Genitourinary: Yes: WNL Musculoskeletal: Yes: WNL Extremities: Yes: Amputation (LLE) Edema: No Peripheral Pulses WNL: Yes Neurological: Yes: Alert, Oriented Psychiatric: Yes: Alert, Oriented Labs: CBC, BMP 09/27/19 10:15 09/27/19 10:15 INR, PTT INR 1.06 (0.83-1.09) 09/21/19 05:32 Problem List - Problems (1) Acute metabolic encephalopathy Assessment/Plan: -AOx3 -CT head: negative for acute pathology. mucous retention cyst. opacifications of mastoid air cells b/l. -Likely 2/2 to Uremia Problems reviewed: Yes Code(s): G93.41 - METABOLIC ENCEPHALOPATHY (2) Acute renal failure (ARF) Assessment/Plan: -Nephrology on board -Dialysis as per renal -trend labs -renal/ bladder US; no hydronephrosis. distended bladder -permacath placement Problems reviewed: Yes Code(s): N17.9 - ACUTE KIDNEY FAILURE, UNSPECIFIED (3) Altered mental status Problems reviewed: Yes Code(s): R41.82 - ALTERED MENTAL STATUS, UNSPECIFIED (4) Anemia Assessment/Plan: -H/H stable -previously low in iron -Iron % low -Start Iron polysaccharide daily -Stool OB negative -Monitor trend Problems reviewed: Yes Code(s): D64.9 - ANEMIA, UNSPECIFIED (5) Uremia Problems reviewed: Yes Code(s): N19 - UNSPECIFIED KIDNEY FAILURE (6) HTN (hypertension) Assessment/Plan: -Continue labetalol -Added amlodipine -BP improved Problems reviewed: Yes Code(s): I10 - ESSENTIAL (PRIMARY) HYPERTENSION
--- NOTE | 2019-09-28 18:13 | PN ---
Progress Note (short form) - Note Progress Note: 1. KENDRICK 2. met acidosis 3. confusion 4. dm 5. htn 6. hx etoh abuse 7. developemental delay 8. hyperkalemia - resolved 9. hypokalemia Current Medications Acetaminophen (Tylenol -) 650 mg PO Q6H PRN PRN Reason: PAIN SCALE 4-6 Last Admin: 09/29/19 22:22 Dose: 650 mg Amlodipine Besylate (Norvasc -) 10 mg PO DAILY [facility] Last Admin: 09/29/19 09:45 Dose: 10 mg Calcium Carbonate/Cholecalciferol (Os-Shaheen 500+D -) 2 tab PO DAILY [facility] Last Admin: 09/29/19 09:45 Dose: 2 tab Fentanyl (Sublimaze Injection -) 50 mcg IVPUSH Q5M PRN PRN Reason: PAIN-PACU ORDER X 4 DOSES ONLY Gabapentin (Neurontin -) 300 mg PO DAILY [facility] Last Admin: 09/29/19 09:46 Dose: 300 mg Labetalol HCl (Normodyne -) 300 mg PO BID [facility] Last Admin: 09/29/19 22:22 Dose: 300 mg Ondansetron HCl (Zofran Injection) 4 mg IVPUSH Q4H PRN PRN Reason: NAUSEA AND/OR VOMITING Last Admin: 09/28/19 20:24 Dose: 4 mg Ondansetron HCl (Zofran Injection) 4 mg IVPUSH Q6H PRN PRN Reason: NAUSEA AND/OR VOMITING Pantoprazole Sodium (Protonix -) 40 mg PO DAILY [facility] Last Admin: 09/29/19 09:45 Dose: 40 mg Polysaccharide Iron Complex (Niferex-150 -) 150 mg PO DAILY [facility] Last Admin: 09/29/19 09:45 Dose: 150 mg Promethazine HCl (Phenergan Injection -) 12.5 mg IVPUSH Q6H PRN PRN Reason: NAUSEA-FOR RESCUE AFTER 15 MIN Thiamine HCl (Vitamin B1 Injection -) 200 mg IVPB TID [facility] Last Admin: 09/29/19 22:23 Dose: 200 mg Last Vital Signs Temp Pulse Resp BP Pulse Ox 98.1 F 74 18 124/76 97 09/29/19 18:00 09/29/19 18:00 09/29/19 18:00 09/29/19 18:00 01/19/20 09:00 denies any discomfort he is still processing the reality of his kidney failure Lungs clear Heart reg Abd soft nontendes ext right le edema diffuse s/p tkr and foot/ankle surgery Labs- no labs done today CBC, BMP 09/28/19 18:45 CBC, BMP 09/27/19 10:15 09/27/19 10:15 IMP anemia acute on chronic kidney failure etiology of kendrick unclear has been on dialysis now has a permacath Plan- CMP in am then decide on dialysis
[2019-09-28 19:18] LABS: MCH 28.2 pg (25.7-33.7); MEAN CELL VOLUME 88.2 fl (80-96); MEAN PLT VOLUME 8.3 fl (7.5-11.1); PLATELET COUNT 184 K/MM3 (134-434); RBC 2.83 M/mm3 (4.00-5.60); RDW 16.2 % (11.9-15.9); WHITE BLOOD COUNT 13.2 K/mm3 (4.0-10.0)
[2019-09-28 19:56] LABS: BLOOD UREA NITROGEN 18.8 mg/dL (7-18); CALCIUM 7.2 mg/dL (8.5-10.1); CREATININE 3.8 mg/dL (0.55-1.3); POTASSIUM 3.8 mmol/L (3.5-5.1)
[2019-09-29] MEDS: THIAMINE HCL 200 MG/2 ML VIAL IVPB SCH ×3 (06:37→22:23)
[2019-09-29] MEDS ORDERED: PT OWN MED DRAWER 7, Y5N ONE (09:25)
[2019-09-29] MEDS: amLODIPine BESYLATE 10 MG TABLET (FP) PO SCH (09:45)
[2019-09-29] MEDS: CALCIUM 500MG/VIT-D 200 UNITS COMBO TABLET (FP) PO SCH (09:45)
[2019-09-29] MEDS: IRON POLYSACCHARIDES 150 MG CAPSULE PO SCH (09:45)
[2019-09-29] MEDS: PANTOPRAZOLE 40 MG TABLET PO SCH (09:45)
[2019-09-29] MEDS: LABETALOL HCL 200 MG TABLET (FP) PO SCH ×2 (09:46→22:22)
[2019-09-29] MEDS: GABAPENTIN 300 MG CAPSULE PO SCH (09:46)
--- NOTE | 2019-09-29 09:49 | PN ---
Progress Note, Physician Chief Complaint: AMS ESRD History of Present Illness: NAD Had Perma cath placed yesterday Operative Date: 09/27/19 Pre-Operative Diagnosis: ESRD Operation: Insertion of permacath Surgeon: Costa Jennings Awaiting acceptance at HD center after insurance auth Wants to go home, wants to sign out AMA - Current Medication List Current Medications: Active Medications Acetaminophen (Tylenol -) 650 mg PO Q6H PRN PRN Reason: PAIN SCALE 4-6 Amlodipine Besylate (Norvasc -) 10 mg PO DAILY [facility] Last Admin: 09/29/19 09:45 Dose: 10 mg Calcium Carbonate/Cholecalciferol (Os-Shaheen 500+D -) 2 tab PO DAILY [facility] Last Admin: 09/29/19 09:45 Dose: 2 tab Fentanyl (Sublimaze Injection -) 50 mcg IVPUSH Q5M PRN PRN Reason: PAIN-PACU ORDER X 4 DOSES ONLY Gabapentin (Neurontin -) 300 mg PO DAILY [facility] Last Admin: 09/29/19 09:46 Dose: 300 mg Labetalol HCl (Normodyne -) 300 mg PO BID [facility] Last Admin: 09/29/19 09:46 Dose: 300 mg Ondansetron HCl (Zofran Injection) 4 mg IVPUSH Q4H PRN PRN Reason: NAUSEA AND/OR VOMITING Last Admin: 09/28/19 20:24 Dose: 4 mg Ondansetron HCl (Zofran Injection) 4 mg IVPUSH Q6H PRN PRN Reason: NAUSEA AND/OR VOMITING Pantoprazole Sodium (Protonix -) 40 mg PO DAILY [facility] Last Admin: 09/29/19 09:45 Dose: 40 mg Polysaccharide Iron Complex (Niferex-150 -) 150 mg PO DAILY [facility] Last Admin: 09/29/19 09:45 Dose: 150 mg Promethazine HCl (Phenergan Injection -) 12.5 mg IVPUSH Q6H PRN PRN Reason: NAUSEA-FOR RESCUE AFTER 15 MIN Thiamine HCl (Vitamin B1 Injection -) 200 mg IVPB TID [facility] Last Admin: 09/29/19 06:37 Dose: 200 mg - Objective Vital Signs: Vital Signs Temperature 98.8 F 09/29/19 09:20 Pulse Rate 81 09/29/19 09:20 Respiratory Rate 18 09/29/19 09:20 Blood Pressure 136/73 09/29/19 09:20 O2 Sat by Pulse Oximetry (%) 97 09/28/19 21:00 Constitutional: Yes: Well Nourished, No Distress, Calm Cardiovascular: Yes: Regular Rate and Rhythm Respiratory: Yes: Regular Gastrointestinal: Yes: WNL, Normal Bowel Sounds, Soft, Abdomen, Obese Genitourinary: Yes: WNL Musculoskeletal: Yes: WNL Extremities: Yes: Amputation (LLE) Edema: No Peripheral Pulses WNL: Yes Neurological: Yes: Alert, Oriented Psychiatric: Yes: Alert, Oriented Labs: CBC, BMP 09/28/19 18:45 09/28/19 18:45 INR, PTT INR 1.06 (0.83-1.09) 09/21/19 05:32 Problem List - Problems (1) Acute metabolic encephalopathy Assessment/Plan: -AOx3 -CT head: negative for acute pathology. mucous retention cyst. opacifications of mastoid air cells b/l. -Likely 2/2 to Uremia Problems reviewed: Yes Code(s): G93.41 - METABOLIC ENCEPHALOPATHY (2) Acute renal failure (ARF) Assessment/Plan: -Nephrology on board -Dialysis as per renal -trend labs -renal/ bladder US; no hydronephrosis. distended bladder -permacath placement Problems reviewed: Yes Code(s): N17.9 - ACUTE KIDNEY FAILURE, UNSPECIFIED (3) Altered mental status Problems reviewed: Yes Code(s): R41.82 - ALTERED MENTAL STATUS, UNSPECIFIED (4) Anemia Assessment/Plan: -H/H stable -previously low in iron -Iron % low -Start Iron polysaccharide daily -Stool OB negative -Monitor trend Problems reviewed: Yes Code(s): D64.9 - ANEMIA, UNSPECIFIED (5) Uremia Problems reviewed: Yes Code(s): N19 - UNSPECIFIED KIDNEY FAILURE (6) HTN (hypertension) Assessment/Plan: -Continue labetalol -Added amlodipine -BP improved Problems reviewed: Yes Code(s): I10 - ESSENTIAL (PRIMARY) HYPERTENSION Assessment/Plan see problem list Pt encouraged to stay, Has HD MWF. Also spoke to , risks and benefits explained to the patient and , both verbalize understanding.
[2019-09-29] MEDS: ACETAMINOPHEN 325 MG TABLET (FP) PO PRN ×2 (14:41→22:22)
[2019-09-29] MEDS ORDERED: SODIUM CHLORIDE 250 ML IV PRN (22:57)
[2019-09-30] MEDS: THIAMINE HCL 200 MG/2 ML VIAL IVPB SCH ×3 (05:56→21:14)
--- NOTE | 2019-09-30 09:01 | PN ---
Progress Note, Physician Chief Complaint: AMS ESRD History of Present Illness: Previous notes and events reviewed awake and alert NAD R chest permacath placed on 09/27/19 denies chest pain or SOB pending acceptance to HD center for outpatient dialysis - Current Medication List Current Medications: Active Medications Acetaminophen (Tylenol -) 650 mg PO Q6H PRN PRN Reason: PAIN SCALE 4-6 Last Admin: 09/29/19 22:22 Dose: 650 mg Amlodipine Besylate (Norvasc -) 10 mg PO DAILY [facility] Last Admin: 09/29/19 09:45 Dose: 10 mg Calcium Carbonate/Cholecalciferol (Os-Shaheen 500+D -) 2 tab PO DAILY [facility] Last Admin: 09/29/19 09:45 Dose: 2 tab Fentanyl (Sublimaze Injection -) 50 mcg IVPUSH Q5M PRN PRN Reason: PAIN-PACU ORDER X 4 DOSES ONLY Gabapentin (Neurontin -) 300 mg PO DAILY [facility] Last Admin: 09/29/19 09:46 Dose: 300 mg Sodium Chloride (Normal Saline -) 250 mls @ 3,000 mls/hr IV PRN PRN PRN Reason: Hypotension during Dialysis Stop: 09/30/19 22:57 Labetalol HCl (Normodyne -) 300 mg PO BID [facility] Last Admin: 09/29/19 22:22 Dose: 300 mg Ondansetron HCl (Zofran Injection) 4 mg IVPUSH Q4H PRN PRN Reason: NAUSEA AND/OR VOMITING Last Admin: 09/28/19 20:24 Dose: 4 mg Ondansetron HCl (Zofran Injection) 4 mg IVPUSH Q6H PRN PRN Reason: NAUSEA AND/OR VOMITING Pantoprazole Sodium (Protonix -) 40 mg PO DAILY [facility] Last Admin: 09/29/19 09:45 Dose: 40 mg Polysaccharide Iron Complex (Niferex-150 -) 150 mg PO DAILY [facility] Last Admin: 09/29/19 09:45 Dose: 150 mg Promethazine HCl (Phenergan Injection -) 12.5 mg IVPUSH Q6H PRN PRN Reason: NAUSEA-FOR RESCUE AFTER 15 MIN Thiamine HCl (Vitamin B1 Injection -) 200 mg IVPB TID [facility] Last Admin: 09/30/19 05:56 Dose: 200 mg - Objective Vital Signs: Vital Signs Temperature 97.9 F 09/30/19 06:00 Pulse Rate 85 09/30/19 06:00 Respiratory Rate 18 09/30/19 06:00 Blood Pressure 126/94 09/30/19 06:00 O2 Sat by Pulse Oximetry (%) 100 09/29/19 21:00 Constitutional: Yes: No Distress, Calm Eyes: Yes: Conjunctiva Clear HENT: Yes: Atraumatic Cardiovascular: Yes: Regular Rate and Rhythm Respiratory: Yes: Regular, CTA Bilaterally Gastrointestinal: Yes: Normal Bowel Sounds, Soft Musculoskeletal: Yes: WNL Extremities: Yes: Amputation (LLE) Edema: Yes Edema: RLE: 1+ Wound/Incision: Yes: Dressing Dry and Intact (R chest) Neurological: Yes: Alert, Oriented Psychiatric: Yes: Alert, Oriented Labs: INR, PTT INR 1.06 (0.83-1.09) 09/21/19 05:32 Microbiology 09/22/19 20:10 Stool Salmonella/Shigella Culture - Final NO GROWTH OF SALMONELLA OR SHIGELLA SPECIES OBTAINED 09/22/19 20:10 Stool Campylobacter Culture - Final NO GROWTH OF CAMPYLOBACTER SPECIES OBTAINED 09/22/19 20:10 Stool Yersinia Culture - Final NO GROWTH OF YERSINIA SPECIES OBTAINED 09/22/19 20:10 Stool Vibrio Culture - Final NO GROWTH OF VIBRIO SPECIES OBTAINED 09/22/19 20:10 Stool Escherichia coli 0157 Culture - Final NO GROWTH OF E COLI 0157 OBTAINED 09/19/19 21:30 Blood - Central Line Blood Culture - Final NO GROWTH AFTER 5 DAYS INCUBATION 09/19/19 21:30 Blood - Central Line Blood Culture - Final NO GROWTH AFTER 5 DAYS INCUBATION 09/22/19 20:10 Stool Clostridioides difficile Antigen - Final 09/22/19 20:10 Stool Clostridioides difficile Toxin Assay - Final 09/20/19 02:00 Urine - Urine Yanez Urine Culture - Final NO GROWTH OBTAINED Problem List - Problems (1) Acute metabolic encephalopathy Assessment/Plan: -resolved -Head CT scan shows no CT gross evidence of acute intracranial pathology -BC and UC neg Code(s): G93.41 - METABOLIC ENCEPHALOPATHY (2) Anemia Assessment/Plan: -Hg 8.4 -monitor Hg daily -transfuse for Hg <8.0 -Anemia profile shows low Iron, low Iron Sat, low TIBC -Iron Polysaccharide daily -Stool OB neg Code(s): D64.9 - ANEMIA, UNSPECIFIED (3) HTN (hypertension) Assessment/Plan: -Labetolol, Amlodipine -low Na diet Code(s): I10 - ESSENTIAL (PRIMARY) HYPERTENSION (4) Acute renal failure (ARF) Assessment/Plan: -Renal on board -BUN/Cr 18.8/3.8 -permacath placed 09/27/19 -will need HD -s/p renal biopsy yesterday -Renal US shows both kidneys are small but appear morphologically unremarkable without gross evidence of hydronephrosis or stones -awaiting acceptance to HD center for discharge Code(s): N17.9 - ACUTE KIDNEY FAILURE, UNSPECIFIED Assessment/Plan see problem list dvt ppx will be d/c home after permacath placement and has HD center set up
[2019-09-30 09:03] LABS: BASO % 0.6 % (0-2.0); EOS % 5.8 % (0-4.5); HEMATOCRIT 25.8 % (35.4-49); HEMOGLOBIN 8.4 GM/dL (11.7-16.9); LYMPH % 7.7 % (8-40); MCH 28.3 pg (25.7-33.7); MCHC 32.4 g/dl (32.0-35.9); MEAN CELL VOLUME 87.2 fl (80-96); MEAN PLT VOLUME 8.4 fl (7.5-11.1); MONO % 8.3 % (3.8-10.2); NEUT % 77.6 % (42.8-82.8); PLATELET COUNT 244 K/MM3 (134-434); RBC 2.95 M/mm3 (4.00-5.60); RDW 16.3 % (11.9-15.9); WHITE BLOOD COUNT 12.2 K/mm3 (4.0-10.0)
[2019-09-30] MEDS: ACETAMINOPHEN 325 MG TABLET (FP) PO PRN ×2 (09:04→15:32)
[2019-09-30] MEDS: CALCIUM 500MG/VIT-D 200 UNITS COMBO TABLET (FP) PO SCH (09:26)
[2019-09-30] MEDS: IRON POLYSACCHARIDES 150 MG CAPSULE PO SCH (09:26)
[2019-09-30] MEDS: GABAPENTIN 300 MG CAPSULE PO SCH (09:26)
[2019-09-30] MEDS: PANTOPRAZOLE 40 MG TABLET PO SCH (09:26)
[2019-09-30 09:33] LABS: ALBUMIN 2.8 g/dl (3.4-5.0); BLOOD UREA NITROGEN 25.2 mg/dL (7-18); CALCIUM 7.1 mg/dL (8.5-10.1); CREATININE 4.7 mg/dL (0.55-1.3); POTASSIUM 3.9 mmol/L (3.5-5.1); TOT PROT 6.2 g/dl (6.4-8.2)
[2019-09-30] MEDS: amLODIPine BESYLATE 10 MG TABLET (FP) PO SCH ×2 (15:16→15:33)
[2019-09-30] MEDS: LABETALOL HCL 200 MG TABLET (FP) PO SCH ×2 (15:16→21:14)
--- NOTE | 2019-09-30 16:05 | PN ---
Progress Note, Physician History of Present Illness: Pt seen and examined at bedside. He is awake and alert. He denies shortness of breath. He tolerated HD. - Current Medication List Current Medications: Active Medications Acetaminophen (Tylenol -) 650 mg PO Q6H PRN PRN Reason: PAIN SCALE 4-6 Last Admin: 09/30/19 15:32 Dose: 650 mg Amlodipine Besylate (Norvasc -) 10 mg PO DAILY [facility] Last Admin: 09/30/19 15:16 Dose: 10 mg Calcium Carbonate/Cholecalciferol (Os-Shaheen 500+D -) 2 tab PO DAILY [facility] Last Admin: 09/30/19 09:26 Dose: 2 tab Fentanyl (Sublimaze Injection -) 50 mcg IVPUSH Q5M PRN PRN Reason: PAIN-PACU ORDER X 4 DOSES ONLY Gabapentin (Neurontin -) 300 mg PO DAILY [facility] Last Admin: 09/30/19 09:26 Dose: 300 mg Sodium Chloride (Normal Saline -) 250 mls @ 3,000 mls/hr IV PRN PRN PRN Reason: Hypotension during Dialysis Stop: 09/30/19 22:57 Labetalol HCl (Normodyne -) 300 mg PO BID [facility] Last Admin: 09/30/19 15:16 Dose: Not Given Ondansetron HCl (Zofran Injection) 4 mg IVPUSH Q4H PRN PRN Reason: NAUSEA AND/OR VOMITING Last Admin: 09/28/19 20:24 Dose: 4 mg Ondansetron HCl (Zofran Injection) 4 mg IVPUSH Q6H PRN PRN Reason: NAUSEA AND/OR VOMITING Pantoprazole Sodium (Protonix -) 40 mg PO DAILY [facility] Last Admin: 09/30/19 09:26 Dose: 40 mg Polysaccharide Iron Complex (Niferex-150 -) 150 mg PO DAILY [facility] Last Admin: 09/30/19 09:26 Dose: 150 mg Promethazine HCl (Phenergan Injection -) 12.5 mg IVPUSH Q6H PRN PRN Reason: NAUSEA-FOR RESCUE AFTER 15 MIN Thiamine HCl (Vitamin B1 Injection -) 200 mg IVPB TID [facility] Last Admin: 09/30/19 15:18 Dose: 200 mg - Objective Vital Signs: Vital Signs Temperature 97.9 F 09/30/19 10:10 Pulse Rate 94 H 09/30/19 13:20 Respiratory Rate 18 09/30/19 13:20 Blood Pressure 152/92 09/30/19 13:20 O2 Sat by Pulse Oximetry (%) 94 L 09/30/19 09:00 Constitutional: Yes: Calm Eyes: Yes: Conjunctiva Clear HENT: Yes: Atraumatic Neck: Yes: Supple Cardiovascular: Yes: S1, S2 Respiratory: Yes: CTA Bilaterally Gastrointestinal: Yes: Normal Bowel Sounds, Soft Genitourinary: Yes: WNL Musculoskeletal: Yes: WNL Edema: No Neurological: Yes: Oriented Psychiatric: Yes: Oriented Labs: CBC, BMP 09/30/19 08:27 09/30/19 08:27 INR, PTT INR 1.06 (0.83-1.09) 09/21/19 05:32 Problem List - Problems (1) Acute renal failure (ARF) Code(s): N17.9 - ACUTE KIDNEY FAILURE, UNSPECIFIED (2) KENDRICK (acute kidney injury) Code(s): N17.9 - ACUTE KIDNEY FAILURE, UNSPECIFIED Assessment/Plan Current Medications Generic Name Dose Route Start Last Admin Trade Name Freq PRN Reason Stop Dose Admin Acetaminophen 650 mg 09/27/19 16:16 09/30/19 15:32 Tylenol - PO 650 mg Q6H PRN Administration PAIN SCALE 4-6 Amlodipine Besylate 10 mg 09/30/19 15:15 09/30/19 15:16 Norvasc - PO 10 mg DAILY [facility] Administration Calcium Carbonate/Cholecalciferol 2 tab 09/28/19 10:00 09/30/19 09:26 Os-Shaheen 500+D - PO 2 tab DAILY [facility] Administration Fentanyl 50 mcg 09/27/19 16:16 Sublimaze Injection - IVPUSH Q5M PRN PAIN-PACU ORDER X 4 DOSES ONLY Gabapentin 300 mg 09/28/19 10:00 09/30/19 09:26 Neurontin - PO 300 mg DAILY [facility] Administration Sodium Chloride 250 mls @ 3,000 mls/hr 09/29/19 22:57 Normal Saline - IV 09/30/19 22:57 PRN PRN Hypotension during Dialysis Labetalol HCl 300 mg 09/27/19 22:00 09/30/19 15:16 Normodyne - PO Not Given BID [facility] Ondansetron HCl 4 mg 09/27/19 16:16 09/28/19 20:24 Zofran Injection IVPUSH 4 mg Q4H PRN Administration NAUSEA AND/OR VOMITING Ondansetron HCl 4 mg 09/27/19 16:16 Zofran Injection IVPUSH Q6H PRN NAUSEA AND/OR VOMITING Pantoprazole Sodium 40 mg 09/28/19 10:00 09/30/19 09:26 Protonix - PO 40 mg DAILY [facility] Administration Polysaccharide Iron Complex 150 mg 09/28/19 10:00 09/30/19 09:26 Niferex-150 - PO 150 mg DAILY [facility] Administration Promethazine HCl 12.5 mg 09/27/19 16:16 Phenergan Injection - IVPUSH Q6H PRN NAUSEA-FOR RESCUE AFTER 15 MIN Thiamine HCl 200 mg 09/27/19 22:00 09/30/19 15:18 Vitamin B1 Injection - IVPB 200 mg TID [facility] Administration Impression 1. KENDRICK 2. met acidosis 3. confusion 4. dm 5. htn 6. hx etoh abuse 7. developemental delay 8. hyperkalemia - resolved 9. hypokalemia Plan - kidney biopsy pending - follow serologies - HD today - pending placement for outpt HD
[2019-09-30] MEDS ORDERED: LIDOCAINE 5% TOPICAL PATCH TP ONE (19:32)
[2019-10-01] MEDS: ACETAMINOPHEN 325 MG TABLET (FP) PO PRN ×2 (02:43→10:47)
[2019-10-01] MEDS: THIAMINE HCL 200 MG/2 ML VIAL IVPB SCH (05:25)
[2019-10-01] MEDS ORDERED: LIDOCAINE PATCH REMOVAL MC SCH (08:30)
[2019-10-01 08:54] VITALS: BP 137/86; PULSE 84; TEMP 97.4
[2019-10-01] MEDS ORDERED: PT OWN MED DRAWER 7, Y5N ONE (08:58)
[2019-10-01] MEDS: LABETALOL HCL 200 MG TABLET (FP) PO SCH (09:02)
[2019-10-01] MEDS: PANTOPRAZOLE 40 MG TABLET PO SCH (09:02)
[2019-10-01] MEDS: amLODIPine BESYLATE 10 MG TABLET (FP) PO SCH (09:02)
[2019-10-01] MEDS: GABAPENTIN 300 MG CAPSULE PO SCH (09:03)
[2019-10-01] MEDS: CALCIUM 500MG/VIT-D 200 UNITS COMBO TABLET (FP) PO SCH (09:03)
[2019-10-01] MEDS: IRON POLYSACCHARIDES 150 MG CAPSULE PO SCH (09:03)
[2019-10-01 09:19] LABS: HEMATOCRIT 26.6 % (35.4-49); HEMOGLOBIN 8.8 GM/dL (11.7-16.9); MCH 29.1 pg (25.7-33.7); MCHC 33.2 g/dl (32.0-35.9); MEAN CELL VOLUME 87.7 fl (80-96); MEAN PLT VOLUME 8.4 fl (7.5-11.1); PLATELET COUNT 271 K/MM3 (134-434); RBC 3.04 M/mm3 (4.00-5.60); RDW 16.1 % (11.9-15.9); WHITE BLOOD COUNT 9.5 K/mm3 (4.0-10.0)
[2019-10-01 09:53] LABS: ALBUMIN 2.8 g/dl (3.4-5.0); BLOOD UREA NITROGEN 15.1 mg/dL (7-18); CALCIUM 7.3 mg/dL (8.5-10.1); CREATININE 3.4 mg/dL (0.55-1.3); POTASSIUM 3.8 mmol/L (3.5-5.1); TOT PROT 6.1 g/dl (6.4-8.2)
--- NOTE | 2019-10-01 11:27 | DS ---
Physical Examination Vital Signs: Vital Signs Temperature 97.4 F L 10/01/19 08:53 Pulse Rate 84 10/01/19 08:53 Respiratory Rate 20 10/01/19 08:53 Blood Pressure 137/86 10/01/19 08:53 O2 Sat by Pulse Oximetry (%) 95 09/30/19 21:00 Findings/Remarks: This is a 48 y/o man with a PMHx of IDDM (noncompliant w/ medications), GERD, HTN, Left BKA, Gastroparesis, UGIB, R -TKR, R forearm spider bite (requiring graft from the R thigh), Former Alcohol Abuse (quit 2 years ago). Who presents to the ED with progressive confusion for the past 4 days and associated with R thigh and facial swelling. Per ED: reports the patient was most confused today when he didn't know where he was despite being at home and she brought him to the ER. She seems to link all his symptoms after he went to a new gym in [place]. She denies the patient having a history of autism, underlying MR or any developmental delay. She denies fever, diarrhea, chest pain or shortness of breath but notes that he had 1x nbnb emesis. fingerstick en route 78 Constitutional: Yes: Well Nourished, No Distress, Calm Cardiovascular: Yes: Regular Rate and Rhythm Respiratory: Yes: Regular Gastrointestinal: Yes: Normal Bowel Sounds, Soft Renal/: Yes: WNL Musculoskeletal: Yes: WNL Extremities: Yes: Amputation Edema: Yes Peripheral Pulses WNL: No Neurological: Yes: Alert, Oriented Psychiatric: Yes: Alert, Oriented Labs: CBC, BMP 10/01/19 08:50 10/01/19 08:50 Discharge Summary Problems reviewed: Yes Reason For Visit: ACUTE RENAL FAILURE, UREMIA Current Active Problems Acute metabolic encephalopathy (Acute) Acute renal failure (ARF) (Acute) Altered mental status (Acute) Anemia (Acute) Uremia (Acute) Laboratory Last Values WBC 9.5 K/mm3 (4.0-10.0) 10/01/19 08:50 RBC 3.04 M/mm3 (4.00-5.60) L 10/01/19 08:50 Hgb 8.8 GM/dL (11.7-16.9) L 10/01/19 08:50 Hct 26.6 % (35.4-49) L 10/01/19 08:50 MCV 87.7 fl (80-96) 10/01/19 08:50 MCH 29.1 pg (25.7-33.7) 10/01/19 08:50 MCHC 33.2 g/dl (32.0-35.9) 10/01/19 08:50 RDW 16.1 % (11.9-15.9) H 10/01/19 08:50 Plt Count 271 K/MM3 (134-434) 10/01/19 08:50 MPV 8.4 fl (7.5-11.1) 10/01/19 08:50 Absolute Neuts (auto) 9.4 K/mm3 (1.5-8.0) H 09/30/19 08:27 Neutrophils % 77.6 % (42.8-82.8) 09/30/19 08:27 Neutrophils % (Manual) 80.0 % (42.8-82.8) 09/19/19 21:30 Band Neutrophils % 2.0 % 09/19/19 21:30 Lymphocytes % 7.7 % (8-40) L 09/30/19 08:27 Lymphocytes % (Manual) 10.0 % (8-40) D 09/19/19 21:30 Monocytes % 8.3 % (3.8-10.2) 09/30/19 08:27 Monocytes % (Manual) 4 % (3.8-10.2) D 09/19/19 21:30 Eosinophils % 5.8 % (0-4.5) H 09/30/19 08:27 Eosinophils % (Manual) 1.0 % (0-4.5) 09/19/19 21:30 Basophils % 0.6 % (0-2.0) 09/30/19 08:27 Basophils % (Manual) 0.0 % (0-2.0) 09/19/19 21:30 Myelocytes % (Man) 0 % (0-2) 09/19/19 21:30 Promyelocytes % (Man) 0 % (0-2) 09/19/19 21:30 Blast Cells % (Manual) 0 % (0-0) 09/19/19 21:30 Nucleated RBC % 0 % (0-0) 09/30/19 08:27 Metamyelocytes 3 % (0-2) H 09/19/19 21:30 Retic Count 2.34 % (0.5-1.5) H D 09/20/19 08:50 PT with INR 12.50 SEC (9.7-13.0) 09/21/19 05:32 INR 1.06 (0.83-1.09) 09/21/19 05:32 PTT (Actin FS) 30.5 SECONDS (25.2-36.5) 09/20/19 11:20 Anticoagulation Therapy No Result Required. 09/21/19 02:07 Puncture Site Right radial 09/21/19 02:07 ABG pH 7.24 (7.35-7.45) L 09/21/19 02:07 ABG pCO2 at Pt Temp 43.3 mmHg (35-45) 09/21/19 02:07 ABG pO2 at Pt Temp 87.8 mmHg (80-100) 09/21/19 02:07 ABG HCO3 17.7 mmol/L (22-27) L 09/21/19 02:07 ABG O2 Sat (Measured) 94.2 % (95-98) L 09/21/19 02:07 ABG O2 Content No Result Required. 09/21/19 02:07 ABG Base Excess -8.6 meq/l (-2-2) L 09/21/19 02:07 Zack Test Positive 09/21/19 02:07 VBG pH 7.29 (7.31-7.41) L 09/20/19 11: POC VBG pCO2 33.7 mmHg (38-52) L 09/20/19 11: POC VBG pO2 236 mmHg (28-48) H 09/20/19 11:20 VBG HCO3 15.8 mmol/L (23-29) L 09/20/19 11: VBG O2 Sat (Justice) 96.8 % (70-80) H 09/20/19: VBG Base Excess -9.4 meq/l (-2-2) L 09/20/19 11: Carboxyhemoglobin No Result Required. 09/19/19 22:45 Methemoglobin 1.3 % (0-2) 09/19/19 22:45 O2 Delivery Device Nasal cannula 09/21/19 02:07 Oxygen Flow Rate 3l 09/21/19 02:07 Vent Mode No Result Required. 09/21/19 02:07 Vent Rate No Result Required. 09/21/19 02:07 Mechanical Rate No Result Required. 09/21/19 02:07 Pressure Support Vent No Result Required. 09/21/19 02:07 Sodium 138 mmol/L (136-145) 10/01/19 08:50 Potassium 3.8 mmol/L (3.5-5.1) 10/01/19 08:50 Chloride 104 mmol/L (98-107) 10/01/19 08:50 Carbon Dioxide 26 mmol/L (21-32) 10/01/19 08:50 Anion Gap 8 MMOL/L (8-16) 10/01/19 08:50 BUN 15.1 mg/dL (7-18) 10/01/19 08:50 Creatinine 3.4 mg/dL (0.55-1.3) H 10/01/19 08:50 Est GFR (CKD-EPI)AfAm 23.39 10/01/19 08:50 Est GFR (CKD-EPI)NonAf 20.18 10/01/19 08:50 POC Glucometer 100 UNITS (80-120) 09/30/19 23:33 Random Glucose 100 mg/dL (74-106) 10/01/19 08:50 Hemoglobin A1c % 5.0 % (4.2-6.3) 09/24/19 08:13 Lactic Acid 0.5 mmol/L (0.4-2.0) 09/19/19 21:30 Calcium 7.3 mg/dL (8.5-10.1) L 10/01/19 08:50 Phosphorus 3.3 mg/dL (2.5-4.9) 09/23/19 06:12 Magnesium 2.0 mg/dL (1.8-2.4) 09/27/19 10:15 Iron 17 ug/dL (50-175) L 09/24/19 06:00 TIBC 201 ug/dL (250-450) L 09/24/19 06:00 Iron Saturation 8 % (17.5-39) L 09/24/19 06:00 Unsaturated IBC 184 ug/dL (200-275) L 09/24/19 06:00 Ferritin 138.8 ng/ml (8-388) 09/24/19 06:00 Total Bilirubin 1.0 mg/dL (0.2-1) 10/01/19 08:50 AST 18 U/L (15-37) 10/01/19 08:50 ALT 11 U/L (13-61) L 10/01/19 08:50 Alkaline Phosphatase 218 U/L (45-117) H 10/01/19 08:50 Ammonia 31.80 umol/L (11-32) 09/19/19 21:30 LD Total 210 U/L (87-246) 09/20/19 08:50 Troponin I < 0.02 ng/ml (0.00-0.05) 09/19/19 21: B-Natriuretic Peptide 96340.3 pg/ml (5-125) H 09/19/19 21:30 Total Protein 6.1 g/dl (6.4-8.2) L 10/01/19 08:50 Total Protein (PEP) 5.5 g/dL (6.0-8.5) L 09/20/19 11:20 Albumin 2.8 g/dl (3.4-5.0) L 10/01/19 08:50 Albumin (PEP) 2.9 gm/dl (2.9-4.4) 09/20/19 11:20 Globulin 2.6 g/dL (2.2-3.9) 09/20/19 11:20 Albumin/Globulin Ratio 1.1 (0.7-1.7) 09/20/19 11:20 Beta Globulins 0.7 gm/dL (0.7-1.3) 09/20/19 11:20 Vitamin B2 268.0 nmol/L (137-370) 09/19/19 21:30 Vitamin B6 22.7 NG/ML (5.3-46.7) 09/19/19 21: Vitamin B12 368 pg/ml (193-986) 09/19/19 21: Vitamin C 1.1 MG/ML (0.2-2.0) 09/19/19 21:30 TSH 4.26 uIU/ml (0.358-3.74) H D 09/19/19 21:30 Urine Color Yellow 09/23/19 17:20 Urine Appearance Clear 09/23/19 17:20 Urine pH 7.0 (5.0-8.0) D 09/23/19 17:20 Ur Specific [place] 1.014 (1.010-1.035) 09/23/19 17:20 Urine Protein 4+ (NEGATIVE) H 09/23/19 17:20 Urine Glucose (UA) Trace (NEGATIVE) 09/23/19 17:20 Urine Ketones Negative (NEGATIVE) 09/23/19 17:20 Urine Blood 2+ (NEGATIVE) H 09/23/19 17:20 Urine Nitrite Negative (NEGATIVE) 09/23/19 17:20 Urine Bilirubin Negative (NEGATIVE) 09/23/19 17:20 Urine Urobilinogen 1.0 mg/dL (0.2-1.0) 09/23/19 17:20 Ur Leukocyte Esterase Negative (NEGATIVE) 09/23/19 17:20 Urine WBC (Auto) 7 /hpf (0-5) 09/23/19 17:20 Urine RBC (Auto) 22 /hpf (0-4) 09/23/19 17:20 Urine Casts (Auto) 3 /lpf (0-8) 09/23/19 17:20 U Epithel Cells (Auto) 4.1 /HPF (0-5/HPF) 09/23/19 17:20 Urine Bacteria (Auto) 3.4 /hpf (NEGATIVE) 09/23/19 17:20 Ur Random Creatinine 28.0 mg/dL (30-150) L 09/20/19 17:00 U Random Total Protein 500.7 mg/dL (0-11.9) H 09/23/19 17:20 Ur Random Sodium 91 MMOL/L (40-220) 09/20/19 17:00 Urine Creatinine 89.0 mg/dL (30-150) 09/23/19 17:20 Protein/Creatinin Ratio 5.6 mg/dL 09/23/19 17:20 Stool Occult Blood Negative (NEGATIVE) 09/19/19 21:30 Salicylates < 1.7 mg/dL (2.8-20) L 09/19/19 21:30 Opiates Screen Negative ng/ml (GUZBIU=014) 09/20/19 02:00 Methadone Screen Negative ng/ml (HBIRFE=726) 09/20/19 02:00 Acetaminophen <2.0 09/19/19 21:30 Barbiturate Screen Negative ng/ml (WYJOHY=383) 09/20/19 02:00 Phencyclidine Screen Negative ng/ml (CUTOFF=25) 09/20/19 02:00 Ur Amphetamines Screen Negative ng/ml (YPJLAN=996) 09/20/19 02:00 MDMA (Ecstasy) Screen Negative ng/ml (VOGURW=982) 09/20/19 02:00 Benzodiazepines Screen Negative ng/ml (QLBMEW=149) 09/20/19 02:00 Cocaine Screen Negative ng/ml (DQJZHB=165) 09/20/19 02:00 U Marijuana (THC) Screen Negative ng/ml (CUTOFF=50) 09/20/19 02:00 Alcohol, Quantitative < 3 mg/dL (0.0-5.0) 09/19/19 21:30 SHAQ M-Flakito Not observed g/dL (Not Observed) 09/20/19 11:20 [place] Screen Negative (.) 09/20/19 11:20 c-ANCA <1:20 titer (Neg:<1:20) 09/20/19 11:20 Proteinase 3 (PR3) <3.5 U/mL (0.0-3.5) 09/20/19 11:20 p-ANCA <1:20 titer (Neg:<1:20) 09/20/19 11:20 Atypical p-ANCA <1:20 titer (Neg:<1:20) 09/20/19 11:20 Myeloperoxidase Ab <9.0 U/mL (0.0-9.0) 09/20/19 11:20 Double Strand DNA Ab Cancelled 09/20/19 11:20 Glomerular Base Memb Ab 3 units (0-20) 09/20/19 11:20 Complement C3 83 mg/dL (82-167) 09/20/19 10:10 Complement C4 22 mg/dL (14-44) 09/20/19 10:10 Tot Complement (CH50) 60 U/mL (42-549288) 09/20/19 11:20 Lyme Screen IgG & IgM <0.91 ISR (0.00-0.90) 09/19/19 21:30 Lyme IgM 23 kDa Band No Result Required. 09/19/19 21:30 Lyme IgM 39 kDa Band No Result Required. 09/19/19 21:30 Lyme IgM 41 kDa Band No Result Required. 09/19/19 21:30 Hep A IgM Ab Confirm Negative (Negative) 09/20/19 11:20 Hepatitis A Ab Total Negative (Negative) 09/20/19 11:20 Hep Bs Antigen Negative (Negative) 09/20/19 11:20 Hep Bs Antibody Reactive (.) 09/20/19 11:20 Hep B Core Total Ab Positive (Negative) H 09/20/19 11:20 Hep B Core IgM Ab Negative (Negative) 09/20/19 11:20 Hepatitis Be Antibody Positive (Negative) H 09/20/19 11:20 Hepatitis Be Antigen Negative (Negative) 09/20/19 11:20 Hep C Ab Diagnostic 0.2 s/co ratio (0.0-0.9) 09/20/19 11:20 Hepatitis C RNA Cancelled 09/20/19 11:20 HCV RNA PCR log epic kaleidoscope analyst/ml Cancelled 09/20/19 11:20 HCV RNA (PCR) IUs/ml Cancelled 09/20/19 11:20 HCV RNA PCR w/Genot Rflx Cancelled 09/20/19 11:20 Liver Fibrosis Interp Cancelled 09/20/19 11:20 Influenza A (Rapid) Negative (Negative) 09/19/19 21:30 Influenza B (Rapid) Negative (Negative) 09/19/19 21:30 Anti-Streptolysin Scrn 64.9 IU/mL (0.0-200.0) 09/20/19 10:10 Blood Type A POSITIVE 09/26/19 15:15 Antibody Screen Negative 09/26/19 15:15 Crossmatch See Detail 09/26/19 15:15 Microbiology 09/22/19 20:10 Stool Salmonella/Shigella Culture - Final NO GROWTH OF SALMONELLA OR SHIGELLA SPECIES OBTAINED 09/22/19 20:10 Stool Campylobacter Culture - Final NO GROWTH OF CAMPYLOBACTER SPECIES OBTAINED 09/22/19 20:10 Stool Yersinia Culture - Final NO GROWTH OF YERSINIA SPECIES OBTAINED 09/22/19 20:10 Stool Vibrio Culture - Final NO GROWTH OF VIBRIO SPECIES OBTAINED 09/22/19 20:10 Stool Escherichia coli 0157 Culture - Final NO GROWTH OF E COLI 0157 OBTAINED 09/19/19 21:30 Blood - Central Line Blood Culture - Final NO GROWTH AFTER 5 DAYS INCUBATION 09/19/19 21:30 Blood - Central Line Blood Culture - Final NO GROWTH AFTER 5 DAYS INCUBATION 09/22/19 20:10 Stool Clostridioides difficile Antigen - Final 09/22/19 20:10 Stool Clostridioides difficile Toxin Assay - Final 09/20/19 02:00 Urine - Urine Yanez Urine Culture - Final NO GROWTH OBTAINED Vital Signs Temp 97.4 F L 10/01/19 08:53 Pulse 84 10/01/19 08:53 Resp 20 10/01/19 08:53 BP 137/86 10/01/19 08:53 Pulse Ox 95 09/30/19 21:00 Intake & Output 09/30/19 09/30/19 10/01/19 11:59 23:59 11:59 Intake Total 400 1100 300 Balance 400 1100 300 Weight 153.938 kg Intake: IV 200 400 Saline lock 200 300 lac 100 IVPB 100 100 Oral 200 600 200 Other: Voiding Method Toilet Toilet # Unmeasured Voids Void 2 2 1 Bowel Movement Yes No # Bowel Movements 2 Weight Measurement Method Standing Scale Condition: Stable - Instructions Referrals: Dallas Momin [Primary Care Provider] - Disposition: HOME - Home Medications Comprehensive Discharge Medication List: Ambulatory Orders Acetaminophen [Tylenol .Regular Strength -] 650 mg PO Q6H PRN tablet 10/01/19 Amlodipine Besylate 10 mg PO DAILY #30 tablet 10/01/19 Calcium 250Mg/Vit-D 125 Units [Oscal 250 mg+D -] 2 combo PO DAILY #60 tablet Gabapentin 300 mg PO DAILY #30 capsule 10/01/19 Iron Polysaccharides [Niferex-150 -] 150 mg PO DAILY #30 capsule 10/01/19 Labetalol HCl [Normodyne -] 100 mg PO BID #60 tablet 10/01/19 Pantoprazole Sodium [Protonix] 40 mg PO DAILY #30 tablet. 10/01/19
--- NOTE | 2019-10-01 12:03 | PN ---
Progress Note, Physician History of Present Illness: Pt seen and examined at bedside. He is awake and alert. He is eager to go home. - Current Medication List Current Medications: Active Medications Acetaminophen (Tylenol -) 650 mg PO Q6H PRN PRN Reason: PAIN SCALE 4-6 Last Admin: 10/01/19 10:47 Dose: 650 mg Amlodipine Besylate (Norvasc -) 10 mg PO DAILY [facility] Last Admin: 10/01/19 09:02 Dose: 10 mg Calcium Carbonate/Cholecalciferol (Os-Shaheen 500+D -) 2 tab PO DAILY [facility] Last Admin: 10/01/19 09:03 Dose: 2 tab Fentanyl (Sublimaze Injection -) 50 mcg IVPUSH Q5M PRN PRN Reason: PAIN-PACU ORDER X 4 DOSES ONLY Gabapentin (Neurontin -) 300 mg PO DAILY [facility] Last Admin: 10/01/19 09:03 Dose: 300 mg Sodium Chloride (Normal Saline -) 250 mls @ 3,000 mls/hr IV PRN PRN PRN Reason: Hypotension during Dialysis Stop: 09/30/19 22:57 Labetalol HCl (Normodyne -) 300 mg PO BID [facility] Last Admin: 10/01/19 09:02 Dose: 300 mg Ondansetron HCl (Zofran Injection) 4 mg IVPUSH Q4H PRN PRN Reason: NAUSEA AND/OR VOMITING Last Admin: 09/28/19 20:24 Dose: 4 mg Ondansetron HCl (Zofran Injection) 4 mg IVPUSH Q6H PRN PRN Reason: NAUSEA AND/OR VOMITING Pantoprazole Sodium (Protonix -) 40 mg PO DAILY [facility] Last Admin: 10/01/19 09:02 Dose: 40 mg Polysaccharide Iron Complex (Niferex-150 -) 150 mg PO DAILY [facility] Last Admin: 10/01/19 09:03 Dose: 150 mg Promethazine HCl (Phenergan Injection -) 12.5 mg IVPUSH Q6H PRN PRN Reason: NAUSEA-FOR RESCUE AFTER 15 MIN Thiamine HCl (Vitamin B1 Injection -) 200 mg IVPB TID [facility] Last Admin: 10/01/19 05:25 Dose: 200 mg - Objective Vital Signs: Vital Signs Temperature 97.4 F L 10/01/19 08:53 Pulse Rate 84 10/01/19 08:53 Respiratory Rate 20 10/01/19 08:53 Blood Pressure 137/86 10/01/19 08:53 O2 Sat by Pulse Oximetry (%) 95 09/30/19 21:00 Constitutional: Yes: Calm Eyes: Yes: Conjunctiva Clear HENT: Yes: Atraumatic Neck: Yes: Supple Cardiovascular: Yes: S1, S2 Respiratory: Yes: CTA Bilaterally Gastrointestinal: Yes: Normal Bowel Sounds, Soft Musculoskeletal: Yes: WNL Edema: No Neurological: Yes: Oriented Psychiatric: Yes: Oriented, Agitated Labs: CBC, BMP 10/01/19 08:50 10/01/19 08:50 INR, PTT INR 1.06 (0.83-1.09) 09/21/19 05:32 Problem List - Problems (1) Acute renal failure (ARF) Code(s): N17.9 - ACUTE KIDNEY FAILURE, UNSPECIFIED (2) KENDRICK (acute kidney injury) Code(s): N17.9 - ACUTE KIDNEY FAILURE, UNSPECIFIED Assessment/Plan Current Medications Generic Name Dose Route Start Last Admin Trade Name Adrianq PRN Reason Stop Dose Admin Acetaminophen 650 mg 09/27/19 16:16 10/01/19 10:47 Tylenol - PO 650 mg Q6H PRN Administration PAIN SCALE 4-6 Amlodipine Besylate 10 mg 09/30/19 15:15 10/01/19 09:02 Norvasc - PO 10 mg DAILY [facility] Administration Calcium Carbonate/Cholecalciferol 2 tab 09/28/19 10:00 10/01/19 09:03 Os-Shaheen 500+D - PO 2 tab DAILY [facility] Administration Fentanyl 50 mcg 09/27/19 16:16 Sublimaze Injection - IVPUSH Q5M PRN PAIN-PACU ORDER X 4 DOSES ONLY Gabapentin 300 mg 09/28/19 10:00 10/01/19 09:03 Neurontin - PO 300 mg DAILY [facility] Administration Sodium Chloride 250 mls @ 3,000 mls/hr 09/29/19 22:57 Normal Saline - IV 09/30/19 22:57 PRN PRN Hypotension during Dialysis Labetalol HCl 300 mg 09/27/19 22:00 10/01/19 09:02 Normodyne - PO 300 mg BID JES[facility] Administration Ondansetron HCl 4 mg 09/27/19 16:16 09/28/19 20:24 Zofran Injection IVPUSH 4 mg Q4H PRN Administration NAUSEA AND/OR VOMITING Ondansetron HCl 4 mg 09/27/19 16:16 Zofran Injection IVPUSH Q6H PRN NAUSEA AND/OR VOMITING Pantoprazole Sodium 40 mg 09/28/19 10:00 10/01/19 09:02 Protonix - PO 40 mg DAILY [facility] Administration Polysaccharide Iron Complex 150 mg 09/28/19 10:00 10/01/19 09:03 Niferex-150 - PO 150 mg DAILY [facility] Administration Promethazine HCl 12.5 mg 09/27/19 16:16 Phenergan Injection - IVPUSH Q6H PRN NAUSEA-FOR RESCUE AFTER 15 MIN Thiamine HCl 200 mg 09/27/19 22:00 10/01/19 05:25 Vitamin B1 Injection - IVPB 200 mg TID [facility]ES[facility] Administration Impression 1. KENDRICK 2. met acidosis 3. confusion 4. dm 5. htn 6. hx etoh abuse 7. developemental delay 8. hyperkalemia - resolved 9. 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
--- NOTE | 2019-10-03 11:55 | OP ---
DATE OF OPERATION: 09/27/2019 PREOPERATIVE DIAGNOSIS: End-stage renal disease. POSTOPERATIVE DIAGNOSIS: End-stage renal disease. PROCEDURE: Insertion of PermCath. SURGEON: Costa Bonner DO ANESTHESIA: Fractional. BLOOD LOSS: 20 mL. Patient is a 49-year-old male who has end-stage renal disease and needs a PermCath placement. Patient was consented for the procedure, understanding all risks, benefits, and alternatives, then taken to the operating room. Once in the operating room, he was laid on the operative table in supine manner, and the area of the right neck and chest were prepped and draped in a sterile surgical manner. We then injected 10 mL of lidocaine 1% over the right internal jugular vein under ultrasound guidance. We then took our micropuncture needle and punctured the vein under ultrasound guidance, and a micropuncture wire was inserted. Micropuncture sheath was inserted. A 0.035 floppy guidewire was inserted under fluoroscopy. We then injected 10 mL of lidocaine 1% above and below the clavicle. We then took an 11 blade and made a 1-cm incision at the puncture site. We took our 15 blade and made a 1-cm incision below the clavicle. We then tunneled the PermCath up to the puncture site. We then took our break-away sheath, placed it over the guidewire into the vein under fluoroscopy. The cannula and guidewire were removed. Catheter was placed inside the sheath. Sheath was broken away as the catheter was placed inside the vein. Neck of the catheter was nice and smooth. Tip of the catheter was located outside the right atrium. We then boom back on each port. There was good flow. Heparinized saline was injected, and 2000 units of IV heparin were injected into each port. Next, 4-0 Biosyn was used, and 2 simple stitches were placed at the puncture site; 3-0 nylon used, the catheter was secured to the skin. BIOPATCH, Steri-Strips, 4 x 4, Tegaderms were placed. Patient tolerated the procedure with no complications. Patient transferred to PACU in stable condition, where chest x-ray will be ordered. COSTA BONNER DO NP/[id number]
--- NOTE | 2019-10-11 17:01 | PATH ---
Surgical Pathology Report Patient Name: MAYO HURLEY [facility]. Rec. #: [id number] /Age/Gender: 1970 (Age: 49) / M Account: [id number] Location: [address] [place] [address]/[facility] Taken: 09/26/2019 Received: 09/26/2019 Reported: 10/11/2019 Physicians: Moises Gutierrez M.D. Specimen(s) Received RENAL BIOPSY Clinical History T2DM, HTN, right forearm spider bite requiring skin graft presents with worsening confusion in a setting of elevated serum creatinine and edema following episodes of diarrhea Intraoperative Consult Diagnosis Kidney biopsy: Rare glomeruli (first pass). Rare glomeruli (second pass). Belén Larose M.D., 09/26/2019 Final Diagnosis RENAL, BIOPSY NODULAR DIABETIC GLOMERULOSCLEROSIS, SEVERE. TUBULAR ATROPHY, AND INTERSTITIAL FIBROSIS, SEVERE, WITH PATCHY TUBULAR DEGENERATIVE AND REGENERATIVE. CHANGES, CONSISTENT WITH ACUTE TUBULAR INJURY, AND FOCALLY PROMINENT INTERSTITIAL NEUTROPHILS. ARTERIOSCLEROSIS, MODERATE, AND ARTERIOLOSCLEROSIS, SEVERE. SEE COMMENT. Comment: The immunofluorescence findings are insufficient to diagnose significant glomerular disease of the immune complex type. The biopsy demonstrates severe nodular diabetic glomerulosclerosis in a background of severe tubulointerstitial scarring and moderate to severe vascular sclerosis. In this patient with Hgb A1c of ~5% and history of former tobacco use, smoking may also have contributed to the development of nodular mesangial sclerosing glomerulopathy. In addition, the biopsy reveals focally prominent interstitial neutrophils in the scarred area. Given the presence of numerous WBC's and bacteria in the urinalysis, this finding raises a possibility of pyelonephritis. Correlation with urine culture to exclude ascending UTI is recommended. Case sent for consultation to Dr. Supa Nugent from [place], [place] ([id number]), the diagnosis above reflects his opinion. Microscopic Description: Sections are stained with H&E, PAS, trichrome, and JMS. Sections show 1 core of renal cortex. Twenty four(24) glomeruli are identified, 20 of which are globally sclerotic The remaining glomeruli appear normal in size and exhibit severe diffuse global mesangial matrix expansion accompanied by minimal segmental mesangial hypercellularity with no significant endocapillary hypercellularity. The glomerular basement membranes appear moderately thickened without duplication. Proximal tubules display patchy moderate degenerative and regenerative changes characterize by attenuation of brush borders, focal simplification, loss of brush borders, enlarged nuclei with prominent nucleoli, and rare mitotic figures. Severe tubular atrophy and interstitial fibrosis involve ~70% of the cortex. Mild to moderate interstitial inflammation, composed of focally predominantly neutrophils and scattered eosinophils, involves ~30% of the cortex, largely confined to the area of atrophy. The tubular basement membranes of both atrophic and non -atrophic tubules appear thickened. Rare isolated foci of mild lymphocytic tubulitis are appreciated. Vessels display moderate arteriosclerosis and severe arteriosclerosis. No arteritis seen. Immunofluorescence (Procedure): Interpretation: GLOMERULI TUBULES INTERSTITIUM VESSELS IgG 4 gloms 1+ TBM +/- neg neg linear global GCW linear diffuse (+4 sclerotic) IgM 2 of gloms 1+ neg neg neg seg tuft IgA 4 gloms neg casts 1+ neg neg C3 4 gloms +/- TBM's 1+gran neg neg gran global mes linear diffuse C1 2 of 4 gloms 1+ neg neg neg seg tuft FBGN 4 gloms neg neg neg neg ALB 4 gloms 1+ TBM's 1+ neg neg linear global GCW linear diffuse KAPPA 4 gloms neg casts1+ neg neg LAMBDA 4 gloms neg casts 1+ neg neg Positive and negative controls show appropriate reactivity. Electron Microscopy (Interpretation) One(1) micron thick survey sections stained with toluidine blue reveal adipose tissue only. As a result, electron microscopy is not performed. See complete report ([id number]) from [facility], [place], [place] for additional details. Electronically Signed Cathy Maguire M.D. Gross Description Received in saline labeled "renal biopsy," are 3 jo-red, cylindrical portion of soft tissue ranging from 0.5-1.5 cm in length and averaging 0.1 cm in diameter. The specimen is divided, placed into 10% buffered formalin, Dariusz fixative and glutaraldehyde. The specimen is sent to [facility] for further studies. 09/26/2019 saudi09/26/2019
== END 2019-10-01 12:50 | disposition home or self-care (01) | DRG 469 ==
LOC: SUPCPDRO 20:18 → JER 20:18 → JERBED 23:36 → JICU 09-20 02:55 → J5S 09-23 23:30
PROVIDERS: ADMIT Internal Medicine; ATTEND Family Medicine
PROC: 30233N1 Transfusion of Nonautologous Red Blood Cells into Peripheral Vein, Percutaneous Approach (ICD-10-PCS; 2019-09-21)
PROC: B518ZZA Fluoroscopy of Superior Vena Cava, Guidance (ICD-10-PCS; 2019-09-27)
PROC: 0JH60XZ Insertion of Tunneled Vascular Access Device into Chest Subcutaneous Tissue and Fascia, Open Approach (ICD-10-PCS; principal; 2019-09-27 16:00)
PROC: 5A1D70Z Performance of Urinary Filtration, Intermittent, Less than 6 Hours Per Day (ICD-10-PCS; 2019-09-30)
DX: N17.9 Acute kidney failure, unspecified (principal); N18.6 End stage renal disease; I12.0 Hypertensive chronic kidney disease with stage 5 chronic kidney disease or end stage renal disease; E87.6 Hypokalemia; Z89.512 Acquired absence of left leg below knee; E11.22 Type 2 diabetes mellitus with diabetic chronic kidney disease; R62.50 Unspecified lack of expected normal physiological development in childhood; E87.5 Hyperkalemia; D64.9 Anemia, unspecified; K92.2 Gastrointestinal hemorrhage, unspecified; R18.8 Other ascites; J90 Pleural effusion, not elsewhere classified; E11.43 Type 2 diabetes mellitus with diabetic autonomic (poly)neuropathy; E87.2 Acidosis; G93.41 Metabolic encephalopathy; K21.9 Gastro-esophageal reflux disease without esophagitis; Z91.14 Patient's other noncompliance with medication regimen; R41.82 Altered mental status, unspecified; E66.9 Obesity, unspecified; Z68.42 Body mass index [BMI] 45.0-49.9, adult; K31.84 Gastroparesis
CPT/HCPCS: 36415; 36430; 36511; 36600; 50200; 70450-TC; 71045-TC-FY; 74176-TC; 76000-TC-FY; 76098-TC-FY; 76775-TC; 76856-TC; 76942-TC; 80048; 80053; 80307; 81003; 82140; 82180; 82272; 82375; 82565; 82570; 82607; 82728; 82803; 82962; 83036; 83050; 83516; 83520; 83540; 83550; 83605; 83615; 83735; 83880; 84100; 84155; 84156; 84165; 84207; 84252; 84300; 84443; 84484; 85025; 85027; 85044; 85610; 85730; 86038; 86060; 86160; 86162; 86225; 86256; 86618; 86704; 86706; 86707; 86708; 86709; 86803; 86850; 86900; 86901; 86922; 87040; 87045; 87046; 87086; 87186; 87324; 87340; 87449; 87804; 87899; 88300-TC; 88329; 93005; 93010; 93971-TC; 94640; 94660; 94760; 97116-GP; 97161-GP; 99283-25; J0131; J0885; J1644; J2597; J7030; P9038; P9058

== ENCOUNTER 2019-11-07 12:42 | Day surgery (SDC) | payer OTHER ==
[2019-11-06 16:09] VITALS: BMI 31.4
[2019-11-07] MEDS ORDERED: LIDOCAINE HCL 1%, 10 MG/ML (20ML VIAL) ONE (13:21)
[2019-11-07] MEDS ORDERED: HEPARIN NA (PORCINE) 5,000 UNITS/ML 1ML VIAL ONE ×2 (13:21→15:43)
--- NOTE | 2019-11-07 14:17 | HP ---
Admitting History and Physical - Admission Chief Complaint: Pt here for permanent av access placement. - Past Medical History Cardiovascular: Yes: HTN, Hyperlipdemia Gastrointestinal: Yes: GERD, GI Bleed Heme/Onc: Yes: Anemia Infectious Disease: Yes: MRSA (several years ago) Musculoskeletal: Yes: Other (left thigh pain) Endocrine: Yes: Diabetes Mellitus Dermatology: Yes: Cellulitis (mrsa) - Past Surgical History Past Surgical History: Yes: Amputation (left BKA), Joint Replacement (R TKR) - Smoking History Smoking history: Never smoked Have you smoked in the past 12 months: No Aproximately how many cigarettes per day: 0 If you are a former smoker, when did you quit?: 10 years ago - Alcohol/Substance Use Hx Alcohol Use: No History of Substance Use: reports: Cocaine (intranasal and crack coaine abuse in past) - Social History ADL: Independent (ambulated with L BKA prosthesis without assistive device) History of Recent Travel: No Home Medications - Allergies Allergies/Adverse Reactions: Allergies Allergy/AdvReac Type Severity Reaction Status Date / Time No Known Allergies Allergy Verified 10/28/19 11:55 - Home Medications Home Medications: Ambulatory Orders Amlodipine Besylate 10 mg PO DAILY #30 tablet 10/01/19 Gabapentin 300 mg PO DAILY #30 capsule 10/01/19 Pantoprazole Sodium [Protonix] 40 mg PO DAILY #30 tablet. 10/01/19 Ferrous Sulfate [Feosol] 325 mg PO DAILY 11/07/19 Labetalol HCl [Normodyne -] 600 mg PO DAILY 11/07/19 Review of Systems - Review of Systems Constitutional: reports: No Symptoms Eyes: reports: No Symptoms HENT: reports: No Symptoms Neck: reports: No Symptoms Cardiovascular: reports: No Symptoms Respiratory: reports: No Symptoms Gastrointestinal: reports: No Symptoms Genitourinary: reports: No Symptoms Musculoskeletal: reports: No Symptoms Integumentary: reports: No Symptoms Neurological: reports: No Symptoms Endocrine: reports: No Symptoms Hematology/Lymphatic: reports: No Symptoms Psychiatric: reports: No Symptoms Physical Examination Vital Signs: Vital Signs Temperature 98.2 F 11/07/19 14:08 Pulse Rate 80 11/07/19 14:08 Respiratory Rate 16 11/07/19 14:08 Blood Pressure 119/79 11/07/19 14:08 O2 Sat by Pulse Oximetry (%) Constitutional: Yes: Well Nourished, No Distress, Calm Eyes: Yes: WNL, Conjunctiva Clear, EOM Intact HENT: Yes: WNL, Atraumatic, Normocephalic Neck: Yes: WNL, Supple, Trachea Midline Cardiovascular: Yes: WNL, Regular Rate and Rhythm Respiratory: Yes: WNL, Regular, CTA Bilaterally Gastrointestinal: Yes: WNL, Normal Bowel Sounds Musculoskeletal: Yes: WNL Extremities: Yes: WNL Edema: No Peripheral Pulses WNL: Yes Integumentary: Yes: WNL Neurological: Yes: WNL, Alert, Oriented ...Motor Strength: WNL Psychiatric: Yes: WNL Problem List - Problems (1) ESRD (end stage renal disease) Assessment/Plan: for left av access today Code(s): N18.6 - END STAGE RENAL DISEASE
[2019-11-07] MEDS ORDERED: ceFAZolin SODIUM 1 GM VIAL ONE (14:29)
[2019-11-07] MEDS ORDERED: MIDAZOLAM HCL 2 MG/2 ML SINGLE DOSE VIAL ONE ×3 (14:30→14:49)
[2019-11-07] MEDS ORDERED: ceFAZolin SODIUM 1 GM VIAL IVPB ONE (14:40)
[2019-11-07] MEDS ORDERED: PROPOFOL 20 ML ONE ×2 (14:49→14:53)
[2019-11-07] MEDS ORDERED: LIDOCAINE HCL 1%, 10 MG/ML (20ML VIAL) INF ONE ×2 (14:52)
[2019-11-07] MEDS ORDERED: HEPARIN NA (PORCINE) 5,000 UNITS/ML 1ML VIAL SQ ONE (15:11)
[2019-11-07] MEDS ORDERED: POVIDONE-IODINE OINTMENT 10% - 28.4 GM TUBE ONE (16:28)
--- NOTE | 2019-11-07 16:44 | OP ---
Operative Note - Note: Operative Date: 11/07/19 Pre-Operative Diagnosis: ESRD Operation: Creation of left brachial-cephalic vein fistula Post-Operative Diagnosis: Same as Pre-op Surgeon: Costa Jennings Anesthesia: General, Fractional Estimated Blood Loss (mls): 50 Operative Report Dictated: Yes
[2019-11-07 17:14] VITALS: TEMP 97.8
[2019-11-07] MEDS ORDERED: ACETAMINOPHEN 325 MG TABLET (FP) ONE (18:46)
[2019-11-07] MEDS ORDERED: ACETAMINOPHEN 325 MG TABLET (FP) PO PRN (18:47)
[2019-11-07 19:37] VITALS: BP 140/80; PULSE 76
--- NOTE | 2019-11-11 22:37 | OP ---
DATE OF OPERATION: 11/07/2019 PREOPERATIVE DIAGNOSIS: End-stage renal disease. POSTOPERATIVE DIAGNOSIS: End-stage renal disease. PROCEDURE: Creation of left brachial artery to cephalic vein fistula. SURGEON: Costa Bonner DO ANESTHESIA: General. ESTIMATED BLOOD LOSS: 50 mL. Patient is a 49-year-old male who comes in for creation of a permanent access in his left arm for dialysis. Preoperative ultrasound shows that he has a good brachial and cephalic vein. At this point, patient came in through ambulatory surgery. Patient was consented for the procedure, understanding all risks and benefits and alternatives, then taken to the operating room. Once in the operating room, was laid on the operating table in supine manner. General anesthesia was administered to the patient. We then mapped out the cephalic vein and that was marked on the skin and it was marked below the antecubital fossa. We then marked our brachial artery below the antecubital fossa, and we boom a diagonal incision using a skin marker between the two. We then went ahead and injected 10 mL of lidocaine 1% in the area. We then made a 4-cm incision below the antecubital fossa. We then went ahead and used Bovie electrocautery to get through all the subcutaneous tissue and make it down to our cephalic vein. Cephalic vein was dissected anteriorly and posteriorly, and all branches were ligated using 4-0 silk. We then went medially and dissected out our brachial artery. Brachial artery was dissected anteriorly and posteriorly, and vessel loops were placed. Next, 5000 units of IV heparin were administered to the patient. We then ligated our cephalic vein distally, and we placed our feeding tube going all the way up the arm with good dilation and with good backflow of blood in the vein. We then made a 7-mm venotomy. We then administered 5000 units of IV heparin to the patient. After 3 minutes, we got distal and proximal control on the artery using vessel loops. We then used a number-15 blade, and arteriotomy was made, extending it to 7 mm using Castro scissors. We then used 6-0 Prolene stay sutures on the artery. We then used 6-0 Prolene double-arm and went outside in on the vein and inside out on the artery and ran the suture around, performed an anastomosis between the artery and the vein. Once completed, we opened the distal artery first, then the proximal artery, and there was good thrill in our AV fistula. The wound was well irrigated. Surgicel was placed. We then used 3-0 Vicryl and the subcutaneous tissue was approximated in an interrupted manner and the skin was closed with skin clifford. Area was wet and dried; 4 x 4's and Tegaderms were placed. Patient tolerated this procedure with no complication. Patient transferred to the PACU in stable condition. There was good bruit and thrill in the fistula. Total blood loss 50 mL. COSTA BONNER DO [id number]
== END 2019-11-07 19:05 | disposition home or self-care (01) ==
LOC: JASU-SURG 12:42
PROVIDERS: ATTEND Surgery Vascular Surgery
PROC: 03180ZF Bypass Left Brachial Artery to Lower Arm Vein, Open Approach (ICD-10-PCS; principal; 2019-11-07 14:30)
DX: E11.22 Type 2 diabetes mellitus with diabetic chronic kidney disease (principal); I12.0 Hypertensive chronic kidney disease with stage 5 chronic kidney disease or end stage renal disease; N18.6 End stage renal disease; E78.5 Hyperlipidemia, unspecified; K21.9 Gastro-esophageal reflux disease without esophagitis; D64.9 Anemia, unspecified; Z96.651 Presence of right artificial knee joint; Z89.512 Acquired absence of left leg below knee
CPT/HCPCS: 36415; 84132; 94760; J1644

== ENCOUNTER 2020-03-06 09:15 | Inpatient (IN) | payer OTHER ==
[2020-03-06] MEDS ORDERED: ACETAMINOPHEN 1000 MG/100 ML VIAL (NON FORMULARY) IVPB ONE (09:20)
--- NOTE | 2020-03-06 09:32 | PDOC ---
History of Present Illness - General Chief Complaint: Nausea/Vomiting Stated Complaint: Nausea/Vomiting Time Seen by Provider: 03/06/20 09:29 History Source: Patient Exam Limitations: No Limitations - History of Present Illness Initial Comments: 49 year old morbidly obese male with known history of BKA of the left leg, hypertension, ESRD (MWF), GIB, DM type 2 with hospitalizations previously for hyperosmolar state, AV graft stenosis who presents to the ED because of vomiting episodes which began today. Per the patient, he felt "sick" yesterday which included generalized weakness. This morning, he began having multiple vomiting episodes without hematemesis. Denies having chest pain and SOB, but endorses fevers. He was dialyzed today that lasted for 1.5 hours instead of his usual 3- 3.5 hour sessions. Endorses having acute on chronic pain in his left anterior and right anterior thigh. He complains of back pain of same quality as his chronic pain. Past History - Medical History Allergies/Adverse Reactions: Allergies Allergy/AdvReac Type Severity Reaction Status Date / Time No Known Allergies Allergy Verified 03/06/20 14:24 Home Medications: Ambulatory Orders Amlodipine Besylate 10 mg PO DAILY #30 tablet 10/01/19 Pantoprazole Sodium [Protonix] 40 mg PO DAILY #30 tablet. 10/01/19 Ferrous Sulfate [Feosol] 325 mg PO DAILY 11/07/19 Labetalol HCl [Normodyne -] 300 mg PO BID 11/07/19 Cyanocobalamin [Vitamin B12 -] 1,000 mcg PO DAILY 03/06/20 Fluticasone Prop 0.05% Nasal [Flonase -] 1 spray NS DAILY 03/06/20 Mv-Mn/Iron/Folic Acid/Herb 190 [Vitamin D3 Complete Caplet] 50,000 units EP WEEKLY 03/06/20 Acetaminophen [Tylenol .Regular Strength -] 325 mg PO Q6H PRN tablet 03/10/20 Cefazolin [Ancef -] 1 gm IVPB BID 10 Days #20 vial 03/10/20 Gabapentin 300 mg PO TID #90 cap 03/10/20 Metoclopramide HCl [Reglan -] 10 mg PO TIDAC #90 tablet 03/10/20 Mupirocin Ointment [Bactroban 2% Ointment -] 1 applic TP BID #1 tube 03/10/20 oxyCODONE HCL [Roxicodone -] 5 mg PO Q6H PRN #20 tablet MDD 4 03/10/20 Anemia: No Asthma: No Cancer: No Cardiac Disorders: No CVA: No COPD: No CHF: No Dementia: No Diabetes: Yes (past hx type2) GI Disorders: Yes (gastric ulcer) Disorders: No HTN: Yes Hypercholesterolemia: Yes Liver Disease: No Psychiatric Problems: No Seizures: No Thyroid Disease: No - Surgical History Abdominal Surgery: No Appendectomy: No Cardiac Surgery: No Cholecystectomy: No Lung Surgery: No Neurologic Surgery: No Orthopedic Surgery: Yes (lt leg amputation ( lt BKA) 2012, R TKR (2019)) - Immunization History Immunization Up to Date: Yes - Psycho-Social/Smoking History Smoking Status: No Smoking History: Never smoked Have you smoked in the past 12 months: No Number of Cigarettes Smoked Daily: 0 If you are a former smoker, when did you quit?: 10 years ago Cigars Per Day: 0 Review of Systems - Review of Systems Able to Perform ROS?: Yes Is the patient limited [place] proficient: No Constitutional: Yes: Fever, Weakness. No: Chills, Diaphoresis HEENTM: No: Eye Pain, Ear Pain, Nose Pain, Throat Pain Respiratory: No: Cough, Shortness of Breath, Hemoptysis Cardiac (ROS): No: Chest Pain, Lightheadedness ABD/GI: Yes: Poor Appetite, Poor Fluid Intake, Vomiting. No: Constipated, Diarrhea, Nausea, Rectal Bleeding, Tarry Stools : No: Burning, Dysuria, Hematuria Musculoskeletal: Yes: Back Pain, Muscle Pain Integumentary: No: Rash Neurological: No: Headache Psychiatric: No: Change in Appetite Endocrine: No: Unexplained Weight Loss *Physical Exam - Physical Exam General Appearance: Yes: Nourished, Appropriately Dressed, Other (umcomfortable appearing; actively vomiting/retching). No: Intoxicated HEENT: positive: EOMI, CATA, Normal Voice, Symmetrical, Pharynx Normal. negative: Pale Conjunctivae, Scleral Icterus (R), Scleral Icterus (L), Muffled/Hoarse voice, Pharyngeal Erythema, Tonsillar Exudate, Tonsillar Erythema Neck: positive: Trachea midline, Supple. negative: Tender, Lymphadenopathy (R), Lymphadenopathy (L), Tender lateral, Tender midline Respiratory/Chest: positive: Lungs Clear, Normal Breath Sounds. negative: Chest Tender, Respiratory Distress, Accessory Muscle Use Cardiovascular: positive: Regular Rhythm, S1, S2, Tachycardia. negative: Systolic Murmur Gastrointestinal/Abdominal: positive: Normal Bowel Sounds, Flat, Soft. ne gative: Tender, Distended, Guarding, Rebound Lymphatic: negative: Adenopathy Musculoskeletal: positive: Normal Inspection. negative: CVA Tenderness, Vertebral Tenderness Extremity: positive: Other (AV graft noted with palpable thrill on left arm. 1+ pitting edema noted on the right LE without erythema or red streaks. Left BKA noted on the LLE. ) Integumentary: positive: Normal Color, Dry, Warm Neurologic: positive: Fully Oriented, Alert, Normal Mood/Affect ED Treatment Course - LABORATORY CBC & Chemistry Diagram: 03/06/20 09:30 03/06/20 10:45 - RADIOLOGY Radiology Studies Ordered: Category Date Time Status CHEST X-RAY PORTABLE* [RAD] Stat Radiology 03/06/20 09:19 Ordered Medical Decision Making - Medical Decision Making 49 year old morbidly obese male with known history of BKA of the left leg, hypertension, ESRD (MWF), GIB, DM type 2 with hospitalizations previously for hyperosmolar state, AV graft stenosis who presents to the ED because of vomiting episodes which began today. Initial vitals: Initial Vital Signs Pulse Resp BP 125 H 19 137/84 03/06/20 09:19 03/06/20 09:19 03/06/20 09:19 Work up: patient presents to the emergency department with fevers and nausea and vomiting. on physical exam, no decreased breath sounds, rales, wheezing, or crackles present. No tenderness to palpation in the midline of the spine in the cervical, thoracic, lumbar region. no abdominal tenderness. Patient likely septic given 104 F with tachycardia. Will order septic work up Laboratory Tests 03/06/20 03/06/20 03/06/20 09:30 09:30 09:30 WBC 11.4 H RBC 4.35 Hgb 12.5 Hct 38.1 D MCV 87.6 MCH 28.7 MCHC 32.7 RDW 17.6 H Plt Count 191 MPV 8.1 Absolute Neuts (auto) 11.1 H Neutrophils % 97.4 H D Neutrophils % (Manual) 84.0 H Band Neutrophils % 16.0 Lymphocytes % 1.5 L D Lymphocytes % (Manual) 0.0 L Monocytes % 0.7 L D Monocytes % (Manual) 0 L D Eosinophils % 0.0 D Eosinophils % (Manual) 0.0 D Basophils % 0.4 Basophils % (Manual) 0.0 Myelocytes % (Man) 0 Promyelocytes % (Man) 0 Blast Cells % (Manual) 0 Nucleated RBC % 0 Metamyelocytes 0 D Hypochromia 0 Platelet Estimate Normal Platelet Comment Present Polychromasia 0 Poikilocytosis 0 Anisocytosis 1+ Microcytosis 1+ Macrocytosis 0 PT with INR 11.70 INR 0.99 PTT (Actin FS) 32.0 VBG pH 7.337 POC VBG pCO2 42.8 POC VBG pO2 24.7 L VBG HCO3 22.4 L VBG O2 Sat (Justice) 44.2 L VBG Base Excess -3.3 L Sodium Potassium Chloride Carbon Dioxide Anion Gap BUN Creatinine Est GFR (CKD-EPI)AfAm Est GFR (CKD-EPI)NonAf Random Glucose Lactic Acid Calcium Total Bilirubin AST ALT Alkaline Phosphatase Troponin I Total Protein Albumin Blood Type Antibody Screen 03/06/20 03/06/20 03/06/20 09:30 09:52 10:20 WBC RBC Hgb Hct MCV MCH MCHC RDW Plt Count MPV Absolute Neuts (auto) Neutrophils % Neutrophils % (Manual) Band Neutrophils % Lymphocytes % Lymphocytes % (Manual) Monocytes % Monocytes % (Manual) Eosinophils % Eosinophils % (Manual) Basophils % Basophils % (Manual) Myelocytes % (Man) Promyelocytes % (Man) Blast Cells % (Manual) Nucleated RBC % Metamyelocytes Hypochromia Platelet Estimate Platelet Comment Polychromasia Poikilocytosis Anisocytosis Microcytosis Macrocytosis PT with INR INR PTT (Actin FS) VBG pH POC VBG pCO2 POC VBG pO2 VBG HCO3 VBG O2 Sat (Justice) VBG Base Excess Sodium 128 L Potassium 9.5 H* Chloride 101 Carbon Dioxide 20 L Anion Gap 8 BUN 47.4 H Creatinine 6.0 H Est GFR (CKD-EPI)AfAm 11.77 Est GFR (CKD-EPI)NonAf 10.15 Random Glucose 114 H Lactic Acid 4.7 H* Calcium 7.7 L Total Bilirubin 1.6 H AST 128 H ALT 37 Alkaline Phosphatase 165 H Troponin I < 0.05 Total Protein 8.6 H Albumin 3.6 Blood Type A POSITIVE Antibody Screen Negative 03/06/20 10:45 WBC RBC Hgb Hct MCV MCH MCHC RDW Plt Count MPV Absolute Neuts (auto) Neutrophils % Neutrophils % (Manual) Band Neutrophils % Lymphocytes % Lymphocytes % (Manual) Monocytes % Monocytes % (Manual) Eosinophils % Eosinophils % (Manual) Basophils % Basophils % (Manual) Myelocytes % (Man) Promyelocytes % (Man) Blast Cells % (Manual) Nucleated RBC % Metamyelocytes Hypochromia Platelet Estimate Platelet Comment Polychromasia Poikilocytosis Anisocytosis Microcytosis Macrocytosis PT with INR INR PTT (Actin FS) VBG pH POC VBG pCO2 POC VBG pO2 VBG HCO3 VBG O2 Sat (Justice) VBG Base Excess Sodium 137 Potassium 4.2 Chloride 102 Carbon Dioxide 23 Anion Gap 12 BUN 49.4 H Creatinine 6.1 H Est GFR (CKD-EPI)AfAm 11.54 Est GFR (CKD-EPI)NonAf 9.95 Random Glucose 139 H Lactic Acid Calcium 7.8 L Total Bilirubin AST ALT Alkaline Phosphatase Troponin I Total Protein Albumin Blood Type Antibody Screen Patient was given 500 cc bolus of fluids due to the patients ESRD and that he is not hypotensive. The patient was given tylenol. Lactic acid noted to be elevated. Patient received a CXR with bilateral atelectasis vs infiltrates with the left worst than right. A CT of the chest and abdomen/pelvis obtained to elucidate cause of infectious source. Patient is noted to have a permacath that is currently in place. Patient is not hypotensive. Given the patient's renal status, will need to rehydrate carefully to prevent flash pulmonary edema. ABDOMEN/PELVIS CT AND CHEST CT negative for acute process Likely the patient is having bacteremia sepsis secondary to infection at the permacath Dr. Phillips was consulted. Per Dr. Phillips, he states that the patient should have it in place until dialysis to ensure its success with the AV fistula. Patient to be admitted for likely bacteremia resulting in sepsis 2/2 possible permacath infection vs other source. Patient was admitted to hospitalist service with broad coverage ordered. Discharge - Discharge Information Problems reviewed: Yes Clinical Impression/Diagnosis: Sepsis - Follow up/Referral - Patient Discharge Instructions - Post Discharge Activity
[2020-03-06] MEDS ORDERED: ONDANSETRON 4 MG/2 ML VIAL IVPUSH ONE (09:34)
[2020-03-06] MEDS ORDERED: ONDANSETRON *ODT* 4 MG TABLET SL ONE (09:37)
[2020-03-06] MEDS ORDERED: ONDANSETRON *ODT* 4 MG TABLET ONE (09:39)
[2020-03-06] MEDS ORDERED: METOCLOPRAMIDE HCL INJECTION 10 MG/2 ML VIAL IVPUSH ONE (09:48)
[2020-03-06] MEDS ORDERED: METOCLOPRAMIDE HCL INJECTION 10 MG/2 ML VIAL ONE (09:53)
[2020-03-06] MEDS ORDERED: ACETAMINOPHEN INJECTION 100 ML IVPB ONE (09:54)
[2020-03-06 10:07] LABS: BASO % 0.4 % (0-2.0); HEMATOCRIT 38.1 % (35.4-49); HEMOGLOBIN 12.5 GM/dL (11.7-16.9); LYMPH % 1.5 % (8-40); MCH 28.7 pg (25.7-33.7); MCHC 32.7 g/dl (32.0-35.9); MEAN CELL VOLUME 87.6 fl (80-96); MEAN PLT VOLUME 8.1 fl (7.5-11.1); MONO % 0.7 % (3.8-10.2); NEUT % 97.4 % (42.8-82.8); PLATELET COUNT 191 K/MM3 (134-434); RBC 4.35 M/mm3 (4.00-5.60); RDW 17.6 % (11.9-15.9); WHITE BLOOD COUNT 11.4 K/mm3 (4.0-10.0)
[2020-03-06 10:09] LABS: VENOUS BASE EXCESS -3.3 mmol/L (-2-2); VENOUS PCO2 42.8 mmHg (38-52); VENOUS PH 7.337 (7.310-7.410)
[2020-03-06 10:14] LABS: VENOUS O2 SATURATION 44.2 % (70-80)
[2020-03-06 10:18] LABS: INR 0.99 (0.83-1.09); PROTHROMBIN TIME (PATIENT) 11.7 SEC (9.7-13.0)
[2020-03-06 10:31] LABS: ALBUMIN 3.6 g/dl (3.4-5.0); ALK PHOS 165 U/L (45-117); BILIRUBIN,TOTAL 1.6 mg/dL (0.2-1); BLOOD UREA NITROGEN 47.4 mg/dL (7-18); CALCIUM 7.7 mg/dL (8.5-10.1); CHLORIDE 101 mmol/L (98-107); CO2 20 mmol/L (21-32); GLUCOSE,RANDOM 114 mg/dL (74-106); SODIUM 128 mmol/L (136-145); TOT PROT 8.6 g/dl (6.4-8.2)
[2020-03-06 10:33] LABS: ANION GAP 8 MMOL/L (8-16); SGOT/AST 128 U/L (15-37); SGPT/ALT 37 U/L (13-61)
[2020-03-06 10:37] LABS: POTASSIUM 9.5 mmol/L (3.5-5.1)
[2020-03-06] MEDS ORDERED: LIDOCAINE 5% TOPICAL PATCH TP ONE (10:38)
[2020-03-06] MEDS ORDERED: LIDOCAINE 5% TOPICAL PATCH ONE (10:47)
[2020-03-06] MEDS ORDERED: HALOPERIDOL LACTATE 5 MG/ML IV ONE (11:00)
[2020-03-06] MEDS ORDERED: HALOPERIDOL LACTATE 5 MG/ML ONE (11:09)
[2020-03-06] MEDS ORDERED: HALOPERIDOL LACTATE 5 MG/ML IM ONE (11:16)
[2020-03-06] MEDS ORDERED: VANCOMYCIN 1 GM in D5W (PRE-DOCKED) 1,000 MG/250 ML IVPB ONE (11:21)
[2020-03-06] MEDS ORDERED: PIPERACILLIN/TAZOB 3.375 GM 3.375 GM in DEXTROSE 5%-WATER - 50 ML IVPB ONE (11:21)
--- NOTE | 2020-03-06 11:22 | PDOC ---
Documentation entered by Windy Sewell SCRIBE, acting as scribe for Ama Garcia MD. Ama Garcia MD: This documentation has been prepared by the ramírezibeDonato Ana, SCRIBE, under my direction and personally reviewed by me in its entirety. I confirm that the documentation accurately reflects all work, treatment, procedures, and medical decision making performed by me. Attending Attestation - Resident Resident Name: Jose Feliciano - ED Attending Attestation I have performed the following: I have examined & evaluated the patient, The case was reviewed & discussed with the resident, I agree w/resident's findings & plan, Exceptions are as noted - HPI HPI: 03/06/20 09:36 Patient is a 49 year old M with a significant past medical history of IDDM (noncompliant w/ medications), GERD, HTN, Left BKA, Gastroparesis, UGIB, R -TKR, R forearm spider bite (requiring graft from the R thigh), and former alcohol Abuse (quit 2 years ago) who presents to the ED with nausea and vomiting since yesterday. Also endorses dry cough but denies SOB or chest pain. Patient recieved ~1.5 hours of dialysis today. Allergies: NKDA - Physicial Exam PE: 03/06/20 11:18 General: uncomfortable appearing, actively vomiting Chest: CTAB, good air entry, no wheezes rales or rhonchi CVS: + s1 s2, tachy Abdomen: soft, nt, nd no rebound no guarding - Critical Care Time Total Critical Care Time: 30 Critical Care Statement: The care of this patient involved high complexity decision making to prevent further life threatening deterioration of the patient's condition and/or to evaluate & treat vital organ system(s) failure or risk of failure. - Medical Decision Making 03/06/20 11:19 49 yo M here with fever, n/v and dry cough, likely sepsis possibly 2/2 COVID vs. PNA vs. colitis vs. gastroenteritis vs. enteritis vs. permacath infection. Vomiting possibly 2/2 gastroparesis vs. acute intraabdominal pathology. Plan: -labs -cxr -COVID testing -IVF -vanc, zosyn -tylenol -zofran ODT however patient vomited shortly after receiving -reglan -renal consult as inpatient -EKG -admit for sepsis This clinical encounter is taking place during a federal and state health care emergency attributable to the novel [place] Virus pandemic. The Maintenance Manager of the Department of Health and Human Services has declared, pursuant to the Public Health Service Act 319F-3 (42 U.S.C. 247d-6d), that a covered persons activities related to medical countermeasures against COVID-19 will be immune from liability under Federal and State law. Discharge - Discharge Information Problems reviewed: Yes Clinical Impression/Diagnosis: Gram negative sepsis - Follow up/Referral - Patient Discharge Instructions - Post Discharge Activity
[2020-03-06 11:23] LABS: BLOOD UREA NITROGEN 49.4 mg/dL (7-18); CALCIUM 7.8 mg/dL (8.5-10.1); CREATININE 6.1 mg/dL (0.55-1.3); POTASSIUM 4.2 mmol/L (3.5-5.1)
[2020-03-06] MEDS ORDERED: SODIUM CHLORIDE 500 ML IV STA (11:26)
[2020-03-06] MEDS ORDERED: PIPERACILLIN/TAZOB 3.375 GM 3.375 GM/50 ML BAG IVPB ONE ×2 (11:39→17:37)
[2020-03-06] MEDS ORDERED: VANCOMYCIN 1 GRAM (PRE-DOCKED) 1,000 MG/250 ML BAG IVPB ONE (11:39)
[2020-03-06 11:52] LABS: ANISOCYTOSIS 1+; MACROCYTOSIS 0; PLATELET ESTIMATE NORMAL
--- NOTE | 2020-03-06 12:13 | CONSULT ---
Consult Consult Specialty:: Nephrology Reason for Consultation:: ESRD - History of Present Illness Chief Complaint: sent in for nause and vomiting History of Present Illness: Pt is a 49 year old male with pmhx of ESRD, DM, BKA, HTN, GERD, former etoh abuse who presents with nausea and vomiting. I was called from HD this morning. He became increasingly ill and could not tolerate the treatment. He complains of generalized body aches. He denies fevers or chills. He denies sick contacts. He has felt ill since yesterday. He denies shortness of breath or cough. He denies chest pain or palpitations. He had about 1 and a half hours of HD. - History Source History Provided By: Patient, Medical Record - Past Medical History Cardio/Vascular: Yes: HTN, Hyperlipdemia Gastrointestinal: Yes: GERD, GI Bleed Renal/: Yes: Renal Failure, Hemodialysis Infectious Disease: Yes: MRSA (several years ago) Musculoskeletal: Yes: Other (left thigh pain) Endocrine: Yes: Diabetes Mellitus Dermatology: Yes: Cellulitis (mrsa) Additional Medical History: ? right knee fracture - Past Surgical History Past Surgical History: Yes: Amputation (left BKA), AV Fistula/Graft, Joint Re placement (R TKR) - Alcohol/Substance Use Hx Alcohol Use: No History of Substance Use: reports: Cocaine (intranasal and crack coaine abuse in past) - Smoking History Smoking history: Never smoked Have you smoked in the past 12 months: No Aproximately how many cigarettes per day: 0 If you are a former smoker, when did you quit?: 10 years ago - Social History Usual Living Arrangement: With Spouse (in elevator apartment without stairs) ADL: Independent (ambulated with L BKA prosthesis without assistive device) History of Recent Travel: No Home Medications - Allergies Allergies/Adverse Reactions: Allergies Allergy/AdvReac Type Severity Reaction Status Date / Time No Known Allergies Allergy Verified 01/30/20 06:36 - Home Medications Home Medications: Ambulatory Orders Amlodipine Besylate 10 mg PO DAILY #30 tablet 10/01/19 Pantoprazole Sodium [Protonix] 40 mg PO DAILY #30 tablet. 10/01/19 Ferrous Sulfate [Feosol] 325 mg PO DAILY 11/07/19 Labetalol HCl [Normodyne -] 300 mg PO BID 11/07/19 Gabapentin 300 mg PO PRN 01/30/20 Family Medical History Family History: Denies Review of Systems - Review of Systems Constitutional: reports: Loss of Appetite, Malaise Eyes: reports: No Symptoms HENT: reports: No Symptoms Neck: reports: No Symptoms Cardiovascular: reports: No Symptoms Respiratory: reports: No Symptoms Gastrointestinal: reports: Abdominal Pain, Vomiting Genitourinary: reports: No Symptoms Musculoskeletal: reports: Muscle Weakness Neurological: reports: No Symptoms Endocrine: reports: No Symptoms Hematology/Lymphatic: reports: No Symptoms Physical Exam Vital Signs: Vital Signs Temperature 104 F H 03/06/20 09:21 Pulse Rate 125 H 03/06/20 11:18 Respiratory Rate 22 H 03/06/20 09:21 Blood Pressure 139/86 03/06/20 11:18 O2 Sat by Pulse Oximetry (%) 100 03/06/20 09:21 Constitutional: Yes: Moderate Distress Eyes: Yes: Conjunctiva Clear HENT: Yes: Atraumatic Cardiovascular: Yes: S1, S2 Respiratory: Yes: CTA Bilaterally Gastrointestinal: Yes: Soft Renal/: Yes: WNL Musculoskeletal: Yes: Other (amputation) Edema: No Neurological: Yes: Oriented Psychiatric: Yes: Oriented Labs: CBC, BMP 03/06/20 09:30 03/06/20 10:45 Imaging - Results Cat Scan: Report Reviewed Problem List - Problems (1) ESRD (end stage renal disease) Code(s): N18.6 - END STAGE RENAL DISEASE (2) Gastroparesis Code(s): K31.84 - GASTROPARESIS Assessment/Plan Current Medications Generic Name Dose Route Start Last Admin Trade Name Adrianq PRN Reason Stop Dose Admin Sodium Chloride 500 mls @ 500 mls/hr 03/06/20 11:26 Normal Saline - IV 03/06/20 12:25 ASDIR STA Miscellaneous 1 each 03/06/20 22:00 Lidoderm Patch Removal MC [id number] JESUS Impression 1. ESRD 2. nausea and vomiting 3. gastroparesis 4. dm 5. htn 6. hx etoh abuse 7. leukocytosis 8. sepsis Plan - send cultures - ct scan negative - will likely need HD tomorrow - vascular eval as he has peracath - fistula is used with 16 gauge needles - ID eval - will give small bolus - monitor vitals - discussed with ER - r/o jerman
--- NOTE | 2020-03-06 13:32 | HP ---
CHIEF COMPLAINT: Vomiting PCP: Dr Momin HISTORY OF PRESENT ILLNESS: 49 year old morbidly obese male with known history of BKA of the left leg, hypertension, GIB, DM type 2 with hospitalizations previously for hyperosmolar state, AV graft stenosis who presents to the ED because of vomiting episodes which began today. At the ED he was given multiple medications including haldol and currently unable to participate with history taking and exam. At the ED he was found to be febrile at 104 and tachycardic at 126. Recent Travel: none PAST MEDICAL HISTORY: as above PAST SURGICAL HISTORY: as above Social History: Smoking: unable to obtain Alcohol: unable to obtain Drugs: unable to obtain Allergies No Known Allergies Allergy (Verified 01/30/20 06:36) HOME MEDICATIONS: Home Medications Medication Instructions Recorded Amlodipine Besylate 10 mg PO DAILY #30 tablet 10/01/19 Pantoprazole Sodium [Protonix] 40 mg PO DAILY #30 tablet. 10/01/19 Ferrous Sulfate [Feosol] 325 mg PO DAILY 11/07/19 Labetalol HCl [Normodyne -] 300 mg PO BID 11/07/19 Gabapentin 300 mg PO PRN 01/30/20 REVIEW OF SYSTEMS Unable to obtain PHYSICAL EXAMINATION Vital Signs - 24 hr 03/06/20 03/06/20 03/06/20 09:19 09:21 11:18 Temperature 104 F H Pulse Rate 126 H Pulse Rate [ 125 H 125 H Right] Respiratory 19 22 H Rate Blood Pressure 152/80 Blood Pressure 137/84 139/86 [Right] O2 Sat by Pulse 100 Oximetry (%) GENERAL:Morbidly obese 49 year old male who is currently somnolent (sedated), appears appropriate for stated age; in no acute distress. HEAD: Normal with no signs of trauma. EYES: Pupils equal, round and reactive to light, extraocular movements intact, sclera anicteric, conjunctiva clear. No lid lag. EARS, NOSE, THROAT: Ears normal, nares patent, oropharynx clear without exudates. Dry mucous membranes. NECK: very short and thick neck; Normal range of motion, supple without lymphadenopathy, JVD, or masses. LUNGS/chest: Breath sounds equal, clear to auscultation bilaterally. No wheezes, and no crackles. No accessory muscle use. Permacath located at the right upper chest HEART: Regular rate and rhythm, normal S1 and S2 without murmur, rub or gallop. ABDOMEN: Soft, nontender, not distended, minimal bowel sounds, no guarding, no r ebound, no masses. Liver edge about 3 fingerbreadths below the costal margin. No splenomegaly. MUSCULOSKELETAL: Normal range of motion at all joints. No bony deformities or tenderness. No CVA tenderness. UPPER EXTREMITIES: 2+ pulses, warm, well-perfused. No cyanosis. No clubbing. No peripheral edema. AV graft at the left arm LOWER EXTREMITIES: 2+ pulses, warm, well-perfused. No calf tenderness. Positive grade I pitting edema on the right. BKA on the left. NEUROLOGICAL: Somnolent but awakens to the touch and name calling. Normal speech. PSYCHIATRIC: Cooperative but somnolent (medicated) and unable to engage in conversation as falling asleep. SKIN: Warm, dry, normal turgor, no rashes or lesions noted, normal capillary refill. Laboratory Results - last 24 hr 03/06/20 03/06/20 03/06/20 09:30 09:30 09:30 WBC 11.4 H RBC 4.35 Hgb 12.5 Hct 38.1 D MCV 87.6 MCH 28.7 MCHC 32.7 RDW 17.6 H Plt Count 191 MPV 8.1 Absolute Neuts (auto) 11.1 H Neutrophils % 97.4 H D Neutrophils % (Manual) 84.0 H Band Neutrophils % 16.0 Lymphocytes % 1.5 L D Lymphocytes % (Manual) 0.0 L Monocytes % 0.7 L D Monocytes % (Manual) 0 L D Eosinophils % 0.0 D Eosinophils % (Manual) 0.0 D Basophils % 0.4 Basophils % (Manual) 0.0 Myelocytes % (Man) 0 Promyelocytes % (Man) 0 Blast Cells % (Manual) 0 Nucleated RBC % 0 Metamyelocytes 0 D Hypochromia 0 Platelet Estimate Normal Platelet Comment Present Polychromasia 0 Poikilocytosis 0 Anisocytosis 1+ Microcytosis 1+ Macrocytosis 0 PT with INR 11.70 INR 0.99 PTT (Actin FS) 32.0 VBG pH 7.337 POC VBG pCO2 42.8 POC VBG pO2 24.7 L VBG HCO3 22.4 L VBG O2 Sat (Justice) 44.2 L VBG Base Excess -3.3 L Sodium Potassium Chloride Carbon Dioxide Anion Gap BUN Creatinine Est GFR (CKD-EPI)AfAm Est GFR (CKD-EPI)NonAf Random Glucose Lactic Acid Calcium Total Bilirubin AST ALT Alkaline Phosphatase Troponin I Total Protein Albumin Blood Type Antibody Screen 03/06/20 03/06/20 03/06/20 09:30 09:52 10:20 WBC RBC Hgb Hct MCV MCH MCHC RDW Plt Count MPV Absolute Neuts (auto) Neutrophils % Neutrophils % (Manual) Band Neutrophils % Lymphocytes % Lymphocytes % (Manual) Monocytes % Monocytes % (Manual) Eosinophils % Eosinophils % (Manual) Basophils % Basophils % (Manual) Myelocytes % (Man) Promyelocytes % (Man) Blast Cells % (Manual) Nucleated RBC % Metamyelocytes Hypochromia Platelet Estimate Platelet Comment Polychromasia Poikilocytosis Anisocytosis Microcytosis Macrocytosis PT with INR INR PTT (Actin FS) VBG pH POC VBG pCO2 POC VBG pO2 VBG HCO3 VBG O2 Sat (Justice) VBG Base Excess Sodium 128 L Potassium 9.5 H* Chloride 101 Carbon Dioxide 20 L Anion Gap 8 BUN 47.4 H Creatinine 6.0 H Est GFR (CKD-EPI)AfAm 11.77 Est GFR (CKD-EPI)NonAf 10.15 Random Glucose 114 H Lactic Acid 4.7 H* Calcium 7.7 L Total Bilirubin 1.6 H AST 128 H ALT 37 Alkaline Phosphatase 165 H Troponin I < 0.05 Total Protein 8.6 H Albumin 3.6 Blood Type A POSITIVE Antibody Screen Negative 03/06/20 10:45 WBC RBC Hgb Hct MCV MCH MCHC RDW Plt Count MPV Absolute Neuts (auto) Neutrophils % Neutrophils % (Manual) Band Neutrophils % Lymphocytes % Lymphocytes % (Manual) Monocytes % Monocytes % (Manual) Eosinophils % Eosinophils % (Manual) Basophils % Basophils % (Manual) Myelocytes % (Man) Promyelocytes % (Man) Blast Cells % (Manual) Nucleated RBC % Metamyelocytes Hypochromia Platelet Estimate Platelet Comment Polychromasia Poikilocytosis Anisocytosis Microcytosis Macrocytosis PT with INR INR PTT (Actin FS) VBG pH POC VBG pCO2 POC VBG pO2 VBG HCO3 VBG O2 Sat (Justice) VBG Base Excess Sodium 137 Potassium 4.2 Chloride 102 Carbon Dioxide 23 Anion Gap 12 BUN 49.4 H Creatinine 6.1 H Est GFR (CKD-EPI)AfAm 11.54 Est GFR (CKD-EPI)NonAf 9.95 Random Glucose 139 H Lactic Acid Calcium 7.8 L Total Bilirubin AST ALT Alkaline Phosphatase Troponin I Total Protein Albumin Blood Type Antibody Screen ASSESSMENT/PLAN: 1. Sepsis - ? GI vs. AV graft infection - antibiotics as per ID (Dr Gordon) seeing patient - blood and urine cultures - covid 19 testing pending - Dr Gordon (ID) already informed by ED (previously saw patient) - IVF bolus x 1. cont close vitals monitoring 2. ESRD on HD - cont with dialysis as per Dr Phillips/service 3. Vomiting may be from uremia vs gastroparesis - higher suspicion for gastroparesis - Del Michelle MD of GI informed of consultation - haldol received in ED - cont antiemetics prn - PPI 4. cont SSI, accuchecks for DM 2 5. Heparin for DVT prophylaxis Visit type - Emergency Visit Emergency Visit: Yes ED Registration Date: 03/06/20 Care time: The patient presented to the Emergency Department on the above date and was hospitalized for further evaluation of their emergent condition. - New Patient This patient is new to me today: Yes Date on this admission: 03/17/20 - Critical Care Critical Care patient: No
[2020-03-06] MEDS ORDERED: ACETAMINOPHEN 325 MG TABLET (FP) PO PRN (14:03)
[2020-03-06] MEDS ORDERED: ONDANSETRON 4 MG/2 ML VIAL IVPB PRN (14:07)
[2020-03-06] MEDS ORDERED: PANTOPRAZOLE SODIUM 40 MG VIAL IVPUSH SCH (14:15)
[2020-03-06] MEDS ORDERED: PANTOPRAZOLE SODIUM 40 MG VIAL ONE (14:18)
--- NOTE | 2020-03-06 14:36 | EKG ---
Test Reason : Blood Pressure : / mmHG Vent. Rate : 100 BPM Atrial Rate : 100 BPM P-R Int : 158 ms QRS Dur : 088 ms QT Int : 364 ms P-R-T Axes : 034 -05 017 degrees QTc Int : 469 ms SINUS RHYTHM WITH OCCASIONAL PREMATURE VENTRICULAR COMPLEXES WHEN COMPARED WITH ECG OF 06-MAR-2020 10:04, PREMATURE VENTRICULAR COMPLEXES ARE NOW PRESENT Confirmed by DUKE WISEMAN MD ([id number]) on 03/06/2020 2:36:06 PM Referred By: Confirmed By:DUKE WISEMAN MD
--- NOTE | 2020-03-06 14:47 | EKG ---
Test Reason : Blood Pressure : / mmHG Vent. Rate : 121 BPM Atrial Rate : 121 BPM P-R Int : 146 ms QRS Dur : 082 ms QT Int : 328 ms P-R-T Axes : 039 -14 016 degrees QTc Int : 465 ms SINUS TACHYCARDIA Confirmed by DUKE WISEMAN MD ([id number]) on 03/06/2020 2:46:58 PM Referred By: Confirmed By:DUKE WISEMAN MD
--- NOTE | 2020-03-06 15:41 | CON.GI ---
Consult Consult Specialty:: gi - History of Present Illness History of Present Illness: 48 y/o male with PMH of Peptic ulcer disease has multiple similar admissions due to intractable nausea, vomiting and abdominal pain. Episodes of nausea and vomiting today during dialysis . He was admitted with diagnosis of sepsis. He has history of prolonged qt interval. He has received Reglan and Zofran in the past. COVID pending Patient is non verbal received Haldol. Previous EGD in 2018 revealed retained food. - Past Medical History Cardio/Vascular: Yes: HTN, Hyperlipdemia Gastrointestinal: Yes: GERD, GI Bleed Renal/: Yes: Renal Failure, Hemodialysis Infectious Disease: Yes: MRSA (several years ago) Musculoskeletal: Yes: Other (left thigh pain) Endocrine: Yes: Diabetes Mellitus Dermatology: Yes: Cellulitis (mrsa) Additional Medical History: ? right knee fracture - Past Surgical History Past Surgical History: Yes: Amputation (left BKA), AV Fistula/Graft, Joint Replacement (R TKR) - Alcohol/Substance Use Hx Alcohol Use: No History of Substance Use: reports: Cocaine (intranasal and crack coaine abuse in past) - Smoking History Smoking history: Never smoked Have you smoked in the past 12 months: No Aproximately how many cigarettes per day: 0 If you are a former smoker, when did you quit?: 10 years ago - Social History Usual Living Arrangement: With Spouse (in elevator apartment without stairs) ADL: Independent (ambulated with L BKA prosthesis without assistive device) History of Recent Travel: No Home Medications - Allergies Allergies/Adverse Reactions: Allergies Allergy/AdvReac Type Severity Reaction Status Date / Time No Known Allergies Allergy Verified 03/06/20 14:24 - Home Medications Home Medications: Ambulatory Orders Amlodipine Besylate 10 mg PO DAILY #30 tablet 10/01/19 Pantoprazole Sodium [Protonix] 40 mg PO DAILY #30 tablet. 10/01/19 Ferrous Sulfate [Feosol] 325 mg PO DAILY 11/07/19 Labetalol HCl [Normodyne -] 300 mg PO BID 11/07/19 Gabapentin 300 mg PO DAILY 01/30/20 Cyanocobalamin [Vitamin B12 -] 1,000 mcg PO DAILY 03/06/20 Fluticasone Prop 0.05% Nasal [Flonase -] 1 spray NS DAILY 03/06/20 Mv-Mn/Iron/Folic Acid/Herb 190 [Vitamin D3 Complete Caplet] 50,000 units EP WEEKLY 03/06/20 Physical Exam-GI Vital Signs: Vital Signs Temperature 104 F H 03/06/20 09:21 Pulse Rate 72 03/06/20 14:34 Respiratory Rate 16 03/06/20 14:34 Blood Pressure 128/82 03/06/20 14:34 O2 Sat by Pulse Oximetry (%) 99 03/06/20 14:34 Constitutional: Yes: Other (arousable) Eyes: Yes: Conjunctiva Clear HENT: Yes: Atraumatic Neck: Yes: Supple Cardiovascular: Yes: Regular Rate and Rhythm Respiratory: Yes: CTA Bilaterally ...Palpate: Yes: Soft. No: Firm/Rigid, Guarding, Hepatomegaly, Mass, Pulsatile Mass, Splenomegaly, Tenderness Labs: CBC, BMP 03/06/20 09:30 03/06/20 10:45 INR, PTT INR 0.99 (0.83-1.09) 03/06/20 09:30 CBCD WBC 11.4 K/mm3 (4.0-10.0) H 03/06/20 09:30 RBC 4.35 M/mm3 (4.00-5.60) 03/06/20 09:30 Hgb 12.5 GM/dL (11.7-16.9) 03/06/20 09:30 Hct 38.1 % (35.4-49) D 03/06/20 09:30 MCV 87.6 fl (80-96) 03/06/20 09:30 MCHC 32.7 g/dl (32.0-35.9) 03/06/20 09:30 RDW 17.6 % (11.9-15.9) H 03/06/20 09:30 Plt Count 191 K/MM3 (134-434) 03/06/20 09:30 MPV 8.1 fl (7.5-11.1) 03/06/20 09:30 CMP Sodium 137 mmol/L (136-145) 03/06/20 10:45 Potassium 4.2 mmol/L (3.5-5.1) 03/06/20 10:45 Chloride 102 mmol/L (98-107) 03/06/20 10:45 Carbon Dioxide 23 mmol/L (21-32) 03/06/20 10:45 Anion Gap 12 MMOL/L (8-16) 03/06/20 10:45 BUN 49.4 mg/dL (7-18) H 03/06/20 10:45 Creatinine 6.1 mg/dL (0.55-1.3) H 03/06/20 10:45 Calcium 7.8 mg/dL (8.5-10.1) L 03/06/20 10:45 Total Bilirubin 1.6 mg/dL (0.2-1) H 03/06/20 09:30 AST 128 U/L (15-37) H 03/06/20 09:30 ALT 37 U/L (13-61) 03/06/20 09:30 Alkaline Phosphatase 165 U/L (45-117) H 03/06/20 09:30 Total Protein 8.6 g/dl (6.4-8.2) H 03/06/20 09:30 Albumin 3.6 g/dl (3.4-5.0) 03/06/20 09:30 Problem List - Problems (1) Nausea & vomiting Assessment/Plan: multifactorial including gastroparesis, uremia,sepsis R> Keep NPO clears when clinically improved continue PPI pt has prolonged q-t interval will need Cardiology input before using prokinetics Code(s): R11.2 - NAUSEA WITH VOMITING, UNSPECIFIED Qualifiers: Vomiting type: unspecified Vomiting Intractability: unspecified Qualified Code(s): R11.2 - Nausea with vomiting, unspecified
--- NOTE | 2020-03-06 15:56 | PN ---
Progress Note (short form) - Note Progress Note: ID consult dictated d/w renal sent from HD with retching- fever of 104 with intense myalgia [address] ct scan of chest and abdomen negative for acute pathology he is now resting comfortably blood cultures vanc and zosyn in ED sepsis- ?permacath- continue vanco based on levels and zosyn for ckd f/u cultures vascular to see for possible permacath removal esrd/hd history of DM Problem List - Problems (1) Sepsis Code(s): A41.9 - SEPSIS, UNSPECIFIED ORGANISM (2) ESRD (end stage renal disease) on dialysis Code(s): N18.6 - END STAGE RENAL DISEASE; Z99.2 - DEPENDENCE ON RENAL DIALYSIS (3) Diabetes Code(s): E11.9 - TYPE 2 DIABETES MELLITUS WITHOUT COMPLICATIONS
--- NOTE | 2020-03-06 17:04 | CONS ---
DATE OF CONSULTATION: DATE OF DICTATION: 03/06/2020 INFECTIOUS DISEASE CONSULTATION HISTORY OF PRESENT ILLNESS: This is a 49-year-old man who has had end-stage renal disease on dialysis. He was sent from dialysis with severe retching. He completed 1-1/2 hours of dialysis. He had a fever of 104 on arrival to the ER. He was treated with a small bolus of IV fluids. He received some Haldol after which he has been resting comfortably. I am asked to see him for further evaluation. He got vancomycin and Zosyn for broad-spectrum coverage in the ER. He is currently sleepy, has no complaints whatsoever, and is arousable. PAST MEDICAL HISTORY: Notable for diabetes. He has a history of diabetes, hypertension, hyperlipidemia, GERD, GI bleed, anemia, gastroparesis. He has had amputation of his left leg. He has a BKA. He had a right total knee replacement. Right forearm surgery in the past. He has a history of former alcohol use, quit 2 years ago. ALLERGIES: No known drug allergies. He complained to the ER of generalized body aches. He denied any sick contacts to the ER and had been ill for about 24 hours. He has a prior history of MRSA cellulitis of the past as well. He has an AV fistula and he still has a PermCath. SOCIAL HISTORY: He lives at home, former cocaine use, not active smoker, he lives with his spouse. MEDICATIONS AT HOME: Include: 1. Amlodipine. 2. Pantoprazole. 3. Ferrous sulfate. 4. Labetalol. 5. Gabapentin. FAMILY HISTORY: Noncontributory. REVIEW OF SYSTEMS: As per HPI. Currently resting comfortably. He has no complaints whatsoever. PHYSICAL EXAMINATION: General: He is resting comfortably. He wants to sleep, so he is not really following any commands, though he did turn on his side. Vital Signs: His T-max is 104. Pulse is 72, blood pressure 128/82, respiratory rate 16, saturating 99% on 2 L. HEENT: As described. Neck: Supple. Lungs: Clear to auscultation. PermCath site is without tenderness. AV fistula has a dressing intact. Heart: Regular rate and rhythm. Abdomen: Soft, nontender. Extremities: BKA site is well healed. His other foot is without any ulcers. LABORATORY: White count 11.4, hemoglobin 12.5, platelets 191. BUN and creatinine are 49 and 6.1. Lactic acid was 4.7 on admission, repeat is now 1.4. Blood cultures have been sent and are pending. He got vancomycin and Zosyn in the ER. He had CAT scans of his chest, abdomen, and pelvis done in the emergency room. There is no evidence of pneumonia or acute pathology in the chest, abdomen, or pelvis. IMPRESSION: 1. In summary, this is a 49-year-old man sent from the, with possible sepsis. Question whether this could be PermCath related, as the scans are otherwise normal. Would continue vancomycin based on levels and Zosyn for now for broad-spectrum coverage. Follow up his cultures. Permacath removal if renal is agreeable. 2. End-stage renal disease, hemodialysis. 3. History of diabetes. THERESA ANN M.D. [id number] EMELY
[2020-03-06] MEDS: PIPERACILLIN/TAZOB 2.25 GM 2.25 GM in DEXTROSE 5%-WATER - 50 ML IVPB SCH (17:48)
[2020-03-06 19:54] VITALS: BMI 33.0
[2020-03-06] MEDS: ACETAMINOPHEN 325 MG TABLET (FP) PO PRN (21:02)
[2020-03-06] MEDS ORDERED: MORPHINE SULFATE 2 MG/ML VIAL IVPUSH ONE (21:52)
[2020-03-06 21:56] LABS: EPI CELLS 13 /uL (0-25.1); HYALINE CASTS 2 /uL (0-3.1); URINE APPEARANCE TURBID; URINE BILIRUBIN NEGATIVE (NEGATIVE); URINE COLOR YELLOW; URINE GLUCOSE (UA) NEGATIVE (NEGATIVE); URINE KETONE NEGATIVE (NEGATIVE); URINE LEUK ESTERASE 2+ (NEGATIVE); URINE NITRITE NEGATIVE (NEGATIVE); URINE PROTEIN 4+ (NEGATIVE); URINE RBC 77 /uL (0-23.9); URINE WBC 1797 /uL (0-25.8)
[2020-03-06] MEDS ORDERED: LIDOCAINE PATCH REMOVAL MC SCH (22:00)
[2020-03-06] MEDS ORDERED: HEPARIN NA (PORCINE) 5,000 UNITS/ML 1ML VIAL SQ SCH (22:00)
[2020-03-06 22:44] LABS: URINE BACTERIA 2738.9 /uL (0-1359)
[2020-03-07] MEDS ORDERED: PIPERACILLIN/TAZOBACTAM 2.25 GM VIAL IVPB ONE (00:46)
[2020-03-07] MEDS ORDERED: DEXTROSE 5%-WATER - 50 ML IVPB ONE (00:46)
[2020-03-07] MEDS: PIPERACILLIN/TAZOB 2.25 GM 2.25 GM in DEXTROSE 5%-WATER - 50 ML IVPB SCH (01:52)
[2020-03-07] MEDS: ACETAMINOPHEN 325 MG TABLET (FP) PO PRN (06:37)
[2020-03-07 06:42] VITALS: BP 140/76; PULSE 97; TEMP 98.9
--- NOTE | 2020-03-07 08:11 | PDOC ---
*Physical Exam - Vital Signs Last Vital Signs Temp Pulse Resp BP Pulse Ox 98.9 F 97 H 18 140/76 99 03/07/20 06:41 03/07/20 06:41 03/07/20 06:41 03/07/20 06:41 03/06/20 19:36 - Physical Exam 03/07/20 08:07 Patient was contacted by me today due to microbiology results showing gram negative bacilli. I called the number on the chart listed for Doretha Bhakta. I spoke to Jonatan Bhakta, the patient, who picked up the phone. I asked to speak to the and the patient did not give the phone to the . I told the patient his microbiology results and he will if not treated in the hospital given that he left AMA and needs additional antibiotics. I instructed the p atient to call 911 to proceed to the hospital. The patient made a noise consistent with understanding. When I asked the patient if he was returning to the hospital, he hung up the phone. I notified Dr. Gordon who was next to me during the phone encounter. 03/07/20 08:11 ED Treatment Course - LABORATORY CBC & Chemistry Diagram: 03/06/20 09:30 03/06/20 10:45 - ADDITIONAL ORDERS Additional order review: 03/06/20 09:30 Blood Culture - Preliminary Blood - Peripheral Venous Pending Organism 03/06/20 09:30 Blood Culture - Preliminary Blood - Peripheral Venous Pending Organism 03/06/20 09:30 RBC 4.35 MCV 87.6 MCHC 32.7 RDW 17.6 H MPV 8.1 Neutrophils % 97.4 H D Lymphocytes % 1.5 L D Monocytes % 0.7 L D Eosinophils % 0.0 D Basophils % 0.4 - RADIOLOGY Radiology Studies Ordered: Category Date Time Status ABDOMEN & PELVIS CT WITH CONTR [CT] Stat CT Scan 03/06/20 11:[address] WITH CONTRAST [CT] Stat CT Scan 03/06/20 11:45 Completed CHEST X-RAY PORTABLE* [RAD] Stat Radiology 03/06/20 09:19 Completed - Medications Given in the ED: ED Medications Discontinued Medications Generic Name Dose Route Start Last Admin Trade Name Freq PRN Reason Stop Dose Admin Acetaminophen 1,000 mg 03/06/20 09:20 03/06/20 09:30 Ofirmev Injection - IVPB 03/06/20 09:21 1,000 mg ONCE ONE Administration Acetaminophen 650 mg 03/06/20 20:47 03/07/20 06:37 Tylenol - PO 650 mg Q6H PRN Administration MODERATE PAIN 4-6 Haloperidol 5 mg 03/06/20 11:00 03/06/20 11:17 Haldol Injection (Fast Acting) - IV 03/06/20 11:01 Not Given ONCE ONE Haloperidol 5 mg 03/06/20 11:16 03/06/20 11:17 Haldol Injection (Fast Acting) - IM 03/06/20 11:17 5 mg ONCE ONE Administration Heparin Sodium (Porcine) 5,000 unit 03/06/20 22:00 03/06/20 21:05 Heparin - SQ 5,000 unit BID JESUS Administration Piperacillin Sod/Tazobactam 50 mls @ 100 mls/hr 03/06/20 11:21 03/06/20 12:20 Sod 3.375 gm/ Dextrose IVPB 03/06/20 11:50 100 mls/hr ONCE ONE Administration Protocol Sodium Chloride 500 mls @ 500 mls/hr 03/06/20 11:26 03/06/20 12:20 Normal Saline - IV 03/06/20 12:25 500 mls/hr ASDIR STA Administration Piperacillin Sod/Tazobactam 50 mls @ 100 mls/hr 03/06/20 18:00 03/07/20 01:52 Sod 2.25 gm/ Dextrose IVPB 100 mls/hr Q8H-IV JESUS Administration Protocol Lidocaine 1 patch 03/06/20 10:38 03/06/20 10:49 Lidoderm Patch - TP 03/06/20 10:39 1 patch ONCE ONE Administration Metoclopramide HCl 10 mg 03/06/20 09:48 03/06/20 09:54 Reglan Injection - IVPUSH 03/06/20 09:49 10 mg ONCE ONE Administration Miscellaneous 1 each 03/06/20 22:00 03/06/20 21:49 Lidoderm Patch Removal MC 1 each DAILY@2200 JESUS Administration Morphine Sulfate 0.5 mg 03/06/20 21:52 03/06/20 22:01 Morphine Sulfate IVPUSH 03/06/20 21:53 0.5 mg ONCE ONE Administration Ondansetron HCl 4 mg 03/06/20 09:34 03/06/20 10:17 Zofran Injection IVPUSH 03/06/20 09:35 Not Given ONCE ONE Ondansetron HCl 4 mg 03/06/20 09:37 03/06/20 09:40 Zofran Odt - SL 03/06/20 09:38 4 mg ONCE ONE Administration Pantoprazole Sodium 40 mg 03/06/20 14:15 03/06/20 14:17 Protonix Iv IVPUSH 40 mg DAILY JESUS Administration Vancomycin HCl 1,000 mg 03/06/20 11:21 03/06/20 12:37 Vancomycin (Pre-Docked) IVPB 03/06/20 11:22 1,000 mg ONCE ONE Administration Protocol Discharge - Discharge Information Problems reviewed: Yes Clinical Impression/Diagnosis: Gram negative sepsis - Follow up/Referral - Patient Discharge Instructions - Post Discharge Activity
--- NOTE | 2020-03-07 08:25 | PN ---
Progress Note (short form) - Note Progress Note: spoke with patient's Doretha- explained olu gilmore has sepsis with bacteria in his blood and needs to return to hospital MAURY= instructed her to call ambulance explained he could if he does not return for care- she understood this and stated she will try to get him to come to the hospital MAURY
--- NOTE | 2020-03-07 08:27 | HOSP ---
Subjective - Review of Symptoms Subjective: Pt left AMA overnight. Labs this morning notable for positive blood cultures in 2/2 bottles + gram negative rods. I spoke to patient's over the phone and informed her the patient needed to come back to the ED urgently for further treatment. She expressed understanding and stated he would return. Physical Examination Vital Signs: Vital Signs Temperature 98.9 F 03/07/20 06:41 Pulse Rate 97 H 03/07/20 06:41 Respiratory Rate 18 03/07/20 06:41 Blood Pressure 140/76 03/07/20 06:41 O2 Sat by Pulse Oximetry (%) 99 03/06/20 19:36 Labs: CBC, BMP 03/06/20 09:30 03/06/20 10:45
[2020-03-07] MEDS ORDERED: PIPERACILLIN/TAZOB 2.25 GM 2.25 GM in DEXTROSE 5%-WATER - 50 ML IVPB SCH (10:00)
== END 2020-03-07 07:32 | disposition left against medical advice (07) | DRG 720 ==
LOC: JER 09:15 → JERBED 13:07 → J6S 19:02
PROVIDERS: ADMIT Internal Medicine; ATTEND Internal Medicine
DX: A41.89 Other specified sepsis (principal); E66.9 Obesity, unspecified; Z68.33 Body mass index [BMI] 33.0-33.9, adult; I12.0 Hypertensive chronic kidney disease with stage 5 chronic kidney disease or end stage renal disease; E11.22 Type 2 diabetes mellitus with diabetic chronic kidney disease; N18.6 End stage renal disease; E78.5 Hyperlipidemia, unspecified; D72.829 Elevated white blood cell count, unspecified; K21.9 Gastro-esophageal reflux disease without esophagitis; E11.43 Type 2 diabetes mellitus with diabetic autonomic (poly)neuropathy; K31.84 Gastroparesis; R00.0 Tachycardia, unspecified; Z99.2 Dependence on renal dialysis; Z89.512 Acquired absence of left leg below knee; Z91.14 Patient's other noncompliance with medication regimen; Z96.651 Presence of right artificial knee joint
CPT/HCPCS: 36415; 71045-TC-FY; 71260-TC; 74177-TC; 80048; 80053; 81003; 82803; 82962; 83605; 84484; 85025; 85610; 85730; 86850; 86900; 86901; 87040; 87086; 87186; 93005; 93010; 99291; J0131; J1644; Q0162; Q9967; U0003

== ENCOUNTER 2020-03-07 08:52 | Inpatient (IN) | payer OTHER ==
--- NOTE | 2020-03-07 09:10 | PDOC ---
History of Present Illness - General History Source: Patient Exam Limitations: No Limitations - History of Present Illness Initial Comments: 49 yo M with a hx of GERD, HTN, ESRD, Left BKA, IDDM, UGIB, and ETOH abuse (last abuse 2 years ago) presents to the emergency department for re-admission for abnormal lab results. The patient was admitted the day prior with fevers and positive cultures growing gram negative bacteria. The patient signed out AMA. T he patient returned to the emergency department due to urging from hospital staff to acquire antibiotics. The patient states his forced him to return to the emergency department. The patient denies new acute problems and feels better than yesterday. Denies the following: fevers, chills, sob, chest pain, nausea, vomiting, abdominal pain, diarrhea. Endorses chronic back and leg pain. <Jose Feliciano - Last Filed: 03/17/20 21:03> <Philip Valencia - Last Filed: 03/19/20 18:24> - General Chief Complaint: Abnormal Lab Results (Outside) Stated Complaint: INFECTION Past History - Medical History Anemia: No Asthma: No Cancer: No Cardiac Disorders: No CVA: No COPD: No CHF: No Dementia: No Diabetes: Yes (past hx type2) Dialysis: Yes GI Disorders: Yes (gastric ulcer) Disorders: No HTN: Yes Hypercholesterolemia: Yes Liver Disease: No Psychiatric Problems: No Seizures: No Thyroid Disease: No - Surgical History Abdominal Surgery: No Appendectomy: No Cardiac Surgery: No Cholecystectomy: No Lung Surgery: No Neurologic Surgery: No Orthopedic Surgery: Yes (lt leg amputation ( lt BKA) 2012, R TKR (2019)) - Immunization History Immunization Up to Date: Yes - Psycho-Social/Smoking History Smoking Status: No Smoking History: Never smoked Have you smoked in the past 12 months: No Number of Cigarettes Smoked Daily: 0 If you are a former smoker, when did you quit?: 10 years ago Cigars Per Day: 0 Information on smoking cessation initiated: No - Substance Abuse Hx (Audit-C & DAST Scrn) How often the patient has a drink containing alcohol: Never Score: In Men: 4 or > Positive; In Women: 3 or > Positive: 0 Screen Result (Pos requires Nsg. Audit-10AR): Negative In the last yr the pt used illegal drug/Rx for NonMed reason: No Score: Yes response is considered Positive: 0 Screen Result (Positive result requires Nsg. DAST-10): Negative <Jose Feliciano - Last Filed: 03/17/20 21:03> <Annie,Philip - Last Filed: 03/19/20 18:24> - Medical History Allergies/Adverse Reactions: Allergies Allergy/AdvReac Type Severity Reaction Status Date / Time No Known Allergies Allergy Verified 03/06/20 14:24 Home Medications: Ambulatory Orders Amlodipine Besylate 10 mg PO DAILY #30 tablet 10/01/19 Pantoprazole Sodium [Protonix] 40 mg PO DAILY #30 tablet. 10/01/19 Ferrous Sulfate [Feosol] 325 mg PO DAILY 11/07/19 Labetalol HCl [Normodyne -] 300 mg PO BID 11/07/19 Cyanocobalamin [Vitamin B12 -] 1,000 mcg PO DAILY 03/06/20 Fluticasone Prop 0.05% Nasal [Flonase -] 1 spray NS DAILY 03/06/20 Mv-Mn/Iron/Folic Acid/Herb 190 [Vitamin D3 Complete Caplet] 50,000 units EP WEEKLY 03/06/20 Acetaminophen [Tylenol .Regular Strength -] 325 mg PO Q6H PRN tablet 03/10/20 Cefazolin [Ancef -] 1 gm IVPB BID 10 Days #20 vial 03/10/20 Gabapentin 300 mg PO TID #90 cap 03/10/20 Metoclopramide HCl [Reglan -] 10 mg PO TIDAC #90 tablet 03/10/20 Mupirocin Ointment [Bactroban 2% Ointment -] 1 applic TP BID #1 tube 03/10/20 oxyCODONE HCL [Roxicodone -] 5 mg PO Q6H PRN #20 tablet MDD 4 03/10/20 Review of Systems - Review of Systems Able to Perform ROS?: Yes Is the patient limited Stateless proficient: No Constitutional: No: Chills, Diaphoresis, Fever, Weakness HEENTM: No: Eye Pain, Ear Pain, Nose Pain, Throat Pain Respiratory: No: Cough, Shortness of Breath Cardiac (ROS): No: Chest Pain, Lightheadedness ABD/GI: No: Constipated, Diarrhea, Nausea, Rectal Bleeding, Vomiting, Tarry Stools : No: Burning, Hematuria Musculoskeletal: Yes: Back Pain. No: Joint Pain, Neck Pain Integumentary: No: Bruising, Rash Neurological: No: Headache Psychiatric: No: Change in Appetite Endocrine: No: Unexplained Weight Loss Hematologic/Lymphatic: No: Anemia <BradenJose - Last Filed: 03/17/20 21:03> *Physical Exam - Vital Signs Last Vital Signs Temp Pulse Resp BP Pulse Ox 98.3 F 89 16 120/73 100 03/07/20 08:55 03/07/20 08:55 03/07/20 08:55 03/07/20 08:55 03/07/20 08:55 - Physical Exam General Appearance: Yes: Nourished, Appropriately Dressed, Obese. No: Apparent Distress, Intoxicated HEENT: positive: EOMI, CATA, Normal Voice, Symmetrical, Pharynx Normal, Hearing Grossly Normal. negative: Pale Conjunctivae, Scleral Icterus (R), Scleral Icterus (L), Muffled/Hoarse voice, Pharyngeal Erythema, Tonsillar Exudate, Tonsillar Erythema, Nasal Congestion, Rhinorrhea, Sinus Tenderness, Excessive drooling Neck: positive: Trachea midline, Supple. negative: Tender, Lymphadenopathy (R), Lymphadenopathy (L), Tender lateral, Tender midline Respiratory/Chest: positive: Lungs Clear, Normal Breath Sounds. negative: Chest Tender, Respiratory Distress, Accessory Muscle Use Cardiovascular: positive: Regular Rhythm, Regular Rate, S1, S2. negative: Systolic Murmur Gastrointestinal/Abdominal: positive: Normal Bowel Sounds, Flat, Soft. negative: Tender Lymphatic: negative: Adenopathy Musculoskeletal: positive: Normal Inspection. negative: CVA Tenderness, Vertebral Tenderness Extremity: positive: Normal Capillary Refill, Other (graft in the left upper extremity. left bka. swelling improved on right leg from previous day) Integumentary: positive: Normal Color, Dry, Warm Neurologic: positive: Fully Oriented, Alert, Normal Mood/Affect <Jose Feliciano - Last Filed: 03/17/20 21:03> - Vital Signs Last Vital Signs Temp Pulse Resp BP Pulse Ox 98.5 F 85 18 145/84 97 03/10/20 14:28 03/10/20 14:28 03/10/20 14:28 03/10/20 14:28 03/10/20 09:00 <Philip Valencia - Last Filed: 03/19/20 18:24> ED Treatment Course - LABORATORY CBC & Chemistry Diagram: 03/09/20 12:00 03/09/20 12:00 <Jose Feliciano - Last Filed: 03/17/20 21:03> - LABORATORY CBC & Chemistry Diagram: 03/09/20 12:00 03/09/20 12:00 - ADDITIONAL ORDERS Additional order review: 03/07/20 10:20 Blood Culture - Final Blood - Peripheral Venous NO GROWTH AFTER 5 DAYS INCUBATION 03/07/20 10:24 Blood Culture - Final Blood - Peripheral Venous NO GROWTH AFTER 5 DAYS INCUBATION 03/07/20 09:39 RBC 4.20 MCV 86.8 MCHC 32.4 RDW 17.0 H MPV 8.0 Neutrophils % 89.1 H Lymphocytes % 5.2 L D Monocytes % 5.3 D Eosinophils % 0.2 D Basophils % 0.2 - Medications Given in the ED: ED Medications Discontinued Medications Generic Name Dose Route Start Last Admin Trade Name Freq PRN Reason Stop Dose Admin Acetaminophen 325 mg 03/07/20 17:00 03/10/20 13:31 Tylenol - PO 325 mg Q6H PRN Administration PAIN 1-5 Amlodipine Besylate 10 mg 03/08/20 10:00 03/10/20 14:11 Norvasc - PO Not Given DAILY [facility] Cyanocobalamin 1,000 mcg 03/08/20 10:00 03/10/20 14:12 Vitamin B12 - PO Not Given DAILY JESUS Ergocalciferol 50,000 unit 03/07/20 12:45 03/09/20 13:58 Drisdol - PO Not Given Roberts JESUS Ferrous Sulfate 325 mg 03/08/20 10:00 03/10/20 14:11 Feosol - PO Not Given DAILY JESUS Fluticasone Propionate 1 spray 03/08/20 10:00 03/10/20 14:11 Flonase - NS Not Given DAILY JESUS Gabapentin 300 mg 03/07/20 22:00 03/10/20 13:22 Neurontin - PO 300 mg TID JESUS Administration Heparin Sodium (Porcine) 5,000 unit 03/07/20 14:00 03/10/20 14:12 Heparin - SQ Not Given TID JESUS Piperacillin Sod/Tazobactam 50 mls @ 100 mls/hr 03/07/20 11:45 03/08/20 09:37 Sod 2.25 gm/ Dextrose IVPB 100 mls/hr Q8H-IV JESUS Administration Protocol Cefazolin Sodium 1 gm in 50 mls @ 100 mls/hr 03/08/20 11:00 03/09/20 09:35 Ancef 1 Gm Premixed Ivpb - IVPB 100 mls/hr BID JESUS Administration Cefazolin Sodium 1 gm/ 50 mls @ 100 mls/hr 03/09/20 22:00 03/10/20 10:24 Dextrose IVPB 100 mls/hr BID JESUS Administration Cefazolin Sodium 1 gm/ 50 mls @ 100 mls/hr 03/10/20 12:23 03/10/20 13:22 Dextrose IVPB 03/10/20 12:52 100 mls/hr ONCE ONE Administration Labetalol HCl 300 mg 03/07/20 22:00 03/10/20 14:11 Normodyne - PO Not Given BID JESUS Lidocaine 1 patch 03/07/20 09:37 03/07/20 09:48 Lidoderm Patch - TP 03/07/20 09:38 Not Given ONCE ONE Lidocaine HCl 10 ml 03/07/20 16:50 03/07/20 16:45 Xylocaine 1% SQ 03/07/20 16:51 Not Given ONCE ONE Metoclopramide HCl 10 mg 03/07/20 15:45 03/10/20 00:52 Reglan Injection - IVPUSH 10 mg Q6H PRN Administration NAUSEA AND/OR VOMITING Miscellaneous 1 each 03/07/20 22:00 03/09/20 21:38 Lidoderm Patch Removal MC 1 each DAILY@2200 JESUS Administration Morphine Sulfate 2 mg 03/07/20 12:34 03/07/20 14:38 Morphine Sulfate IVPUSH 2 mg Q6H PRN Administration PAIN LEVEL 7 - 10 Morphine Sulfate 3 mg 03/07/20 15:45 03/10/20 00:52 Morphine Sulfate IVPUSH 3 mg Q4H PRN Administration PAIN LEVEL 7 - 10 Mupirocin 1 applic 03/07/20 22:00 03/10/20 14:11 Bactroban 2% Ointment - TP Not Given BID JESUS Ondansetron HCl 4 mg 03/09/20 05:10 03/09/20 22:29 Zofran Injection IVPUSH 4 mg ONCE PRN Administration NAUSEA AND/OR VOMITING Oxycodone HCl 5 mg 03/07/20 09:42 03/07/20 09:48 Roxicodone - PO 03/07/20 09:43 5 mg ONCE ONE Administration Oxycodone HCl 5 mg 03/07/20 17:00 03/10/20 13:31 Roxicodone - PO 5 mg Q6H PRN Administration 1-5 Pantoprazole Sodium 40 mg 03/08/20 10:00 03/10/20 14:12 Protonix - PO Not Given DAILY JESUS <Philip Vaelncia - Last Filed: 03/19/20 18:24> Medical Decision Making - Medical Decision Making 49 yo M with a hx of GERD, HTN, ESRD, Left BKA, IDDM, UGIB, and ETOH abuse (last abuse 2 years ago) presents to the emergency department for re-admission for abnormal lab results. Initial vitals: Initial Vital Signs Temp Pulse Resp BP Pulse Ox 98.3 F 89 16 120/73 100 03/07/20 08:55 03/07/20 08:55 03/07/20 08:55 03/07/20 08:55 03/07/20 08:55 Work up: patient presents for re-admission after AMA this morning I admitted the patient yesterday for sepsis likely source secondary to the permacath in the right upper chest. the patient had cultures that grew gram negative bacteria. I spoke to the patient this morning prior to his re-admission urging for re-admission given the life threatening state he was in. The patient eventually returned to the emergency department. Will repeat cultures. given that the patient had received antibiotics, likely the cultures will be contaminated. Will repeat labs. patient is currently afebrile without tachycardia. Will provide patient with analgesics for back pain. ID is aware the patient is back and will order the patient's antibiotics Will order oxydocone and lidoderm patch for the patient's pain Laboratory Tests 03/07/20 03/07/20 09:39 09:39 WBC 9.5 RBC 4.20 Hgb 11.8 Hct 36.5 MCV 86.8 MCH 28.1 MCHC 32.4 RDW 17.0 H Plt Count 126 L D MPV 8.0 Absolute Neuts (auto) 8.5 H Neutrophils % 89.1 H Lymphocytes % 5.2 L D Monocytes % 5.3 D Eosinophils % 0.2 D Basophils % 0.2 Nucleated RBC % 0 Sodium 134 L Potassium 4.0 Chloride 99 Carbon Dioxide 22 Anion Gap 14 BUN 69.6 H Creatinine 7.8 H* Est GFR (CKD-EPI)AfAm 8.57 Est GFR (CKD-EPI)NonAf 7.39 Random Glucose 133 H Calcium 7.5 L Magnesium 2.7 H Total Bilirubin 1.7 H AST 68 H ALT 39 Alkaline Phosphatase 173 H Total Protein 7.2 Albumin 3.4 Patient was admitted to the hospitalist service for sepsis and requiring IV antibiotics for positive culture showing gram negative EKG: NSR without st elevations or depressions. Dispo: Admit <Jose Feliciano - Last Filed: 03/17/20 21:03> Discharge - Discharge Information Problems reviewed: Yes <Jose Feliciano - Last Filed: 03/17/20 21:03> <Philip Valencia - Last Filed: 03/19/20 18:24> - Discharge Information Clinical Impression/Diagnosis: ESRD (end stage renal disease), Gram-negative bacteremia Disposition: HOME
[2020-03-07] MEDS ORDERED: LIDOCAINE 5% TOPICAL PATCH TP ONE (09:37)
[2020-03-07] MEDS ORDERED: oxyCODONE HCL 5 MG TABLET PO ONE (09:42)
[2020-03-07] MEDS ORDERED: oxyCODONE HCL 5 MG TABLET ONE (09:45)
[2020-03-07 09:56] LABS: BASO % 0.2 % (0-2.0); EOS % 0.2 % (0-4.5); HEMATOCRIT 36.5 % (35.4-49); HEMOGLOBIN 11.8 GM/dL (11.7-16.9); LYMPH % 5.2 % (8-40); MCH 28.1 pg (25.7-33.7); MCHC 32.4 g/dl (32.0-35.9); MEAN CELL VOLUME 86.8 fl (80-96); MONO % 5.3 % (3.8-10.2); NEUT % 89.1 % (42.8-82.8); PLATELET COUNT 126 K/MM3 (134-434); WHITE BLOOD COUNT 9.5 K/mm3 (4.0-10.0)
--- NOTE | 2020-03-07 10:09 | PDOC ---
Documentation entered by Cathy Ridley SCRIBE, acting as scribe for Philip Valencia MD. Philip Valencia MD: This documentation has been prepared by the ramírezibhKai rascon Maria, SCRIBE, under my direction and personally reviewed by me in its entirety. I confirm that the documentation accurately reflects all work, treatment, procedures, and medical decision making performed by me. Attending Attestation - Resident Resident Name: Jose Feliciano - ED Attending Attestation I have performed the following: I have examined & evaluated the patient, The case was reviewed & discussed with the resident, I agree w/resident's findings & plan, Exceptions are as noted - HPI HPI: 03/07/20 09:38 Patient is a 49 year old female with a significant past medical history of IDDM (noncompliant w/ medications), GERD, HTN, Left BKA, Gastroparesis, UGIB, R -TKR, R forearm spider bite (requiring graft from the R thigh), and former alcohol Abuse (quit 2 years ago) who presents to the ED for further evaluation of abnormal lab results. Patient was admitted on 03/06 for sepsis, patient left AMA this morning, the hospitalist spoke to the patients this morning and urged her to bring her back to the ED for further treatment of abnormal lab results. - Physicial Exam PE: 03/07/20 10:02 GENERAL: The patient is awake, alert, and fully oriented, Nontoxic - in no acute distress. HEAD: Normocephalic, atraumatic. EYES: extraocular movements intact, sclera anicteric, conjunctiva clear. ENT: Normal voice, Moist mucous membranes. NECK: Normal range of motion, supple LUNGS: Breath sounds equal, clear to auscultation bilaterally. No wheezes, no rhonchi, no rales. HEART: Regular rate and rhythm, normal S1 and S2 without murmur, rub or gallop. ABDOMEN: Soft, nontender, No guarding, no rebound. No CVA tenderness EXTREMITIES: Normal range of motion, graft in LUE NEUROLOGICAL: No facial assymetry, Normal speech, PSYCH: Normal mood, normal affect. SKIN: Warm, Dry, normal turgor, perm cath in R chest - Medical Decision Making 03/07/20 10:03 49-year-old left AMA for bacteremia now returns to the ER, will discuss with inpatient team and admit for further management of his bacteremia, he is otherwise asymptomatic Discharge - Discharge Information Problems reviewed: Yes Clinical Impression/Diagnosis: ESRD (end stage renal disease), Gram-negative bacteremia Condition: Stable Disposition: HOME - Follow up/Referral - Patient Discharge Instructions - Post Discharge Activity
[2020-03-07 10:32] LABS: ALBUMIN 3.4 g/dl (3.4-5.0); BILIRUBIN,TOTAL 1.7 mg/dL (0.2-1); BLOOD UREA NITROGEN 69.6 mg/dL (7-18); CALCIUM 7.5 mg/dL (8.5-10.1); MAGNESIUM 2.7 mg/dL (1.8-2.4); TOT PROT 7.2 g/dl (6.4-8.2)
[2020-03-07 10:35] LABS: CREATININE 7.8 mg/dL (0.55-1.3)
[2020-03-07] MEDS ORDERED: SODIUM CHLORIDE 250 ML IV PRN (11:53)
[2020-03-07] MEDS ORDERED: PIPERACILLIN/TAZOB 2.25 GM 2.25 GM/50 ML BAG IVPB ONE (12:27)
--- NOTE | 2020-03-07 12:30 | HP ---
CHIEF COMPLAINT: Called back to the hospital for infection in the blood PCP: Dr. Patel HISTORY OF PRESENT ILLNESS:Patient is a 49 year old female with a significant past medical history of IDDM (noncompliant w/ medications), GERD, HTN, Left BKA, Gastroparesis, UGIB, R -TKR, R forearm spider bite (requiring graft from the R thigh), and former alcohol Abuse (quit 2 years ago) who presents to the ED for further evaluation of abnormal lab results. Patient was admitted on 03/06 for sepsis, patient left AMA this morning, the hospitalist spoke to the patients this morning and urged her to bring her back to the ED for further treatment of abnormal lab results. ER course was notable for: (1) hemodialysis (2) history of blood culture positive (3) Recent Travel: Denies any history of that PAST MEDICAL HISTORY: Diabetes hypertension renal failure gastroparesis PAST SURGICAL HISTORY: Multiple surgery for graft and catheter Family history positive for diabetes hypertension Social History: He denies all the alcohol smoking or drug use Smoking: Alcohol: Drugs: Allergies No Known Allergies Allergy (Verified 03/06/20 14:24) HOME MEDICATIONS: Home Medications Medication Instructions Recorded Amlodipine Besylate 10 mg PO DAILY #30 tablet 10/01/19 Pantoprazole Sodium [Protonix] 40 mg PO DAILY #30 tablet. 10/01/19 Ferrous Sulfate [Feosol] 325 mg PO DAILY 11/07/19 Labetalol HCl [Normodyne -] 300 mg PO BID 11/07/19 Gabapentin 300 mg PO DAILY 01/30/20 Cyanocobalamin [Vitamin B12 -] 1,000 mcg PO DAILY 03/06/20 Fluticasone Prop 0.05% Nasal 1 spray NS DAILY 03/06/20 [Flonase -] Mv-Mn/Iron/Folic Acid/Herb 190 50,000 units EP WEEKLY 03/06/20 [Vitamin D3 Complete Caplet] REVIEW OF SYSTEMS CONSTITUTIONAL: fever, chills, present HEENT: Absent: rhinorrhea, nasal congestion, throat pain, throat swelling, difficulty swallowing, mouth swelling, ear pain, eye pain, visual changes CARDIOVASCULAR: Absent: chest pain, syncope, palpitations, irregular heart rate, lightheadedness, peripheral edema RESPIRATORY: Absent: cough, shortness of breath, dyspnea with exertion, orthopnea, wheezing, stridor, hemoptysis GASTROINTESTINAL: Absent: abdominal pain, abdominal distension, nausea, vomiting, diarrhea, constipation, melena, hematochezia GENITOURINARY: Absent: dysuria, frequency, urgency, hesitancy, hematuria, flank pain, genital pain MUSCULOSKELETAL: Absent: myalgia, arthralgia, joint swelling, back pain, neck pain SKIN: Absent: rash, itching, pallor HEMATOLOGIC/IMMUNOLOGIC: Absent: easy bleeding, easy bruising, lymphadenopathy, frequent infections ENDOCRINE: Absent: unexplained weight gain, unexplained weight loss, heat intolerance, cold intolerance NEUROLOGIC: Absent: headache, focal weakness or paresthesias, dizziness, unsteady gait, seizure, mental status changes, bladder or bowel incontinence PSYCHIATRIC: Absent: anxiety, depression, suicidal or homicidal ideation, hallucinations. PHYSICAL EXAMINATION Vital Signs - 24 hr 03/07/20 03/07/20 08:55 11:24 Temperature 98.3 F 98.1 F Pulse Rate 89 Pulse Rate [ 84 Right] Respiratory 16 16 Rate Blood Pressure 120/73 Blood Pressure 126/64 [Right Arm] O2 Sat by Pulse 100 100 Oximetry (%) GENERAL: Awake, alert, and fully oriented, in no acute distress. HEAD: Normal with no signs of trauma. EYES: Pupils equal, round and reactive to light, extraocular movements intact, sclera anicteric, conjunctiva clear. No lid lag. EARS, NOSE, THROAT: Ears normal, nares patent, oropharynx clear without exudates. Moist mucous membranes. NECK: Normal range of motion, supple without lymphadenopathy, JVD, or masses. LUNGS: Breath sounds equal, clear to auscultation bilaterally. No wheezes, and no crackles. No accessory muscle use. HEART: Regular rate and rhythm, normal S1 and S2 without murmur, rub or gallop. ABDOMEN: Soft, nontender, not distended, normoactive bowel sounds, no guarding, no rebound, no masses. No hepatomegaly or splenomegaly. MUSCULOSKELETAL: Normal range of motion at all joints. No bony deformities or tenderness. No CVA tenderness. UPPER EXTREMITIES: 2+ pulses, warm, well-perfused. No cyanosis. No clubbing. No peripheral edema. LOWER EXTREMITIES: 2+ pulses, warm, well-perfused. No calf tenderness. No peripheral edema. NEUROLOGICAL: Cranial nerves II-XII intact. Normal speech. Normal gait. PSYCHIATRIC: Cooperative. Good eye contact. Appropriate mood and affect. SKIN: Has catheter in place Laboratory Results - last 24 hr 03/07/20 03/07/20 09:39 09:39 WBC 9.5 RBC 4.20 Hgb 11.8 Hct 36.5 MCV 86.8 MCH 28.1 MCHC 32.4 RDW 17.0 H Plt Count 126 L D MPV 8.0 Absolute Neuts (auto) 8.5 H Neutrophils % 89.1 H Lymphocytes % 5.2 L D Monocytes % 5.3 D Eosinophils % 0.2 D Basophils % 0.2 Nucleated RBC % 0 Sodium 134 L Potassium 4.0 Chloride 99 Carbon Dioxide 22 Anion Gap 14 BUN 69.6 H Creatinine 7.8 H* Est GFR (CKD-EPI)AfAm 8.57 Est GFR (CKD-EPI)NonAf 7.39 Random Glucose 133 H Calcium 7.5 L Magnesium 2.7 H Total Bilirubin 1.7 H AST 68 H ALT 39 Alkaline Phosphatase 173 H Total Protein 7.2 Albumin 3.4 ASSESSMENT/PLAN: 1. Sepsis - ? GI vs. AV graft infection - antibiotics as per ID (Dr Gordon) seeing patient - blood and urine cultures - covid 19 testing pending - Dr Gordon (ID) already informed by ED (previously saw patient) - IVF bolus x 1. cont close vitals monitoring 2. ESRD on HD - cont with dialysis as per Dr Phillips/service 3. Vomiting may be from uremia vs gastroparesis - higher suspicion for gastroparesis - Del Michelle MD of GI informed of consultation - haldol received in ED - cont antiemetics prn - PPI 4. cont SSI, accuchecks for DM 2 5. Heparin for DVT prophylaxis He is something of severe pain in his back will start him on Percocet as needed. Visit type - Emergency Visit Emergency Visit: Yes ED Registration Date: 03/07/20 Care time: The patient presented to the Emergency Department on the above date and was hospitalized for further evaluation of their emergent condition. - New Patient This patient is new to me today: Yes Date on this admission: 03/07/20 - Critical Care Critical Care patient: No
[2020-03-07] MEDS ORDERED: MORPHINE SULFATE 2 MG/ML VIAL IVPUSH PRN (12:34)
[2020-03-07] MEDS: PIPERACILLIN/TAZOB 2.25 GM 2.25 GM in DEXTROSE 5%-WATER - 50 ML IVPB SCH ×2 (13:11→17:07)
[2020-03-07 15:49] VITALS: BMI 33.5
[2020-03-07] MEDS ORDERED: PIPERACILLIN/TAZOBACTAM 2.25 GM VIAL IVPB ONE (16:13)
[2020-03-07] MEDS ORDERED: DEXTROSE 5%-WATER - 50 ML IVPB ONE (16:13)
[2020-03-07] MEDS ORDERED: LIDOCAINE HCL 1%, 10 MG/ML (20ML VIAL) ONE (16:33)
[2020-03-07] MEDS: METOCLOPRAMIDE HCL INJECTION 10 MG/2 ML VIAL IVPUSH PRN (16:48)
[2020-03-07] MEDS ORDERED: LIDOCAINE HCL 1%, 10 MG/ML (50 mL VIAL) SQ ONE (16:50)
--- NOTE | 2020-03-07 16:50 | PN ---
Progress Note (short form) - Note Progress Note: VA[facility] Surgery Pt seen and examined. Right IJ PC removed. Dressing placed. Left bka stump with wound from abrasion from prosthesis. Bactroban daily to area Costa Jennings DO
[2020-03-07] MEDS: ACETAMINOPHEN 325 MG TABLET (FP) PO PRN ×2 (17:00→23:45)
[2020-03-07] MEDS: oxyCODONE HCL 5 MG TABLET PO PRN ×2 (17:00→23:44)
[2020-03-07] MEDS ORDERED: PIPERACILLIN/TAZOB 2.25 GM 2.25 GM in DEXTROSE 5%-WATER - 50 ML IVPB SCH (18:00)
--- NOTE | 2020-03-07 18:23 | CONSULT ---
Consult Consult Specialty:: Nephrology Reason for Consultation:: ESRD - History of Present Illness History of Present Illness: Please see H and P from yesterday. Pt signed out ama this morning. He has positive blood cultures. I called him to come back to the hospital. - History Source History Provided By: Patient - Past Medical History Cardio/Vascular: Yes: HTN, Hyperlipdemia Gastrointestinal: Yes: GERD, GI Bleed Renal/: Yes: Renal Failure, Hemodialysis Infectious Disease: Yes: MRSA (several years ago) Musculoskeletal: Yes: Other (left thigh pain) Endocrine: Yes: Diabetes Mellitus Dermatology: Yes: Cellulitis (mrsa) Additional Medical History: ? right knee fracture - Past Surgical History Past Surgical History: Yes: Amputation (left BKA), AV Fistula/Graft, Joint Replacement (R TKR) - Alcohol/Substance Use Hx Alcohol Use: No History of Substance Use: reports: Cocaine (intranasal and crack coaine abuse in past) - Smoking History Smoking history: Never smoked Have you smoked in the past 12 months: No Aproximately how many cigarettes per day: 0 If you are a former smoker, when did you quit?: 10 years ago - Social History Usual Living Arrangement: With Spouse (in elevator apartment without stairs) ADL: Independent (ambulated with L BKA prosthesis without assistive device) History of Recent Travel: No Home Medications - Allergies Allergies/Adverse Reactions: Allergies Allergy/AdvReac Type Severity Reaction Status Date / Time No Known Allergies Allergy Verified 03/06/20 14:24 - Home Medications Home Medications: Ambulatory Orders RX: Amlodipine Besylate 10 mg PO DAILY #30 tablet 10/01/19 RX: Pantoprazole Sodium [Protonix] 40 mg PO DAILY #30 tablet. 10/01/19 Ferrous Sulfate [Feosol] 325 mg PO DAILY 11/07/19 RX: Labetalol HCl [Normodyne -] 300 mg PO BID 11/07/19 RX: Gabapentin 300 mg PO DAILY 01/30/20 Cyanocobalamin [Vitamin B12 -] 1,000 mcg PO DAILY 03/06/20 Fluticasone Prop 0.05% Nasal [Flonase -] 1 spray NS DAILY 03/06/20 Mv-Mn/Iron/Folic Acid/Herb 190 [Vitamin D3 Complete Caplet] 50,000 units EP WEEKLY 03/06/20 Family Medical History Family History: Denies Review of Systems - Review of Systems Constitutional: reports: Malaise Eyes: reports: No Symptoms HENT: reports: No Symptoms Neck: reports: No Symptoms Cardiovascular: reports: No Symptoms Respiratory: reports: No Symptoms Musculoskeletal: reports: Other (hip pain) Endocrine: reports: No Symptoms Hematology/Lymphatic: reports: No Symptoms Physical Exam Vital Signs: Vital Signs Temperature 100.5 F H 03/07/20 15:39 Pulse Rate 115 H 03/07/20 15:39 Respiratory Rate 16 03/07/20 15:39 Blood Pressure 150/95 03/07/20 15:39 O2 Sat by Pulse Oximetry (%) 96 03/07/20 15:40 Constitutional: Yes: Calm Eyes: Yes: Conjunctiva Clear HENT: Yes: Atraumatic Neck: Yes: Supple Cardiovascular: Yes: S1, S2 Gastrointestinal: Yes: Normal Bowel Sounds Musculoskeletal: Yes: Other (SI joint pain) Edema: No Neurological: Yes: Oriented Psychiatric: Yes: Oriented Labs: CBC, BMP 03/07/20 09:39 03/07/20 09:39 Problem List - Problems (1) ESRD (end stage renal disease) Code(s): N18.6 - END STAGE RENAL DISEASE (2) Bacteremia Code(s): R78.81 - BACTEREMIA Assessment/Plan Current Medications Generic Name Dose Route Start Last Admin Trade Name Freq PRN Reason Stop Dose Admin Acetaminophen 325 mg 03/07/20 17:00 03/07/20 17:00 Tylenol - PO 325 mg Q6H PRN Administration PAIN 1-5 Amlodipine Besylate 10 mg 03/08/20 10:00 Norvasc - PO DAILY JESUS Cyanocobalamin 1,000 mcg 03/08/20 10:00 Vitamin B12 - PO DAILY JESUS Ergocalciferol 50,000 unit 03/07/20 12:45 Drisdol - PO Roberts JESUS Ferrous Sulfate 325 mg 03/08/20 10:00 Feosol - PO DAILY JESUS Fluticasone Propionate 1 spray 03/08/20 10:00 Flonase - NS DAILY JESUS Gabapentin 300 mg 03/07/20 22:00 Neurontin - PO TID JESUS Heparin Sodium (Porcine) 5,000 unit 03/07/20 14:00 Heparin - SQ TID JESUS Piperacillin Sod/Tazobactam 50 mls @ 100 mls/hr 03/07/20 11:45 03/07/20 17:07 Sod 2.25 gm/ Dextrose IVPB 100 mls/hr Q8H-IV JESUS Administration Protocol Sodium Chloride 250 mls @ 3,000 mls/hr 03/07/20 11:53 Normal Saline - IV 03/08/20 11:53 PRN PRN Hypotension during Dialysis Labetalol HCl 300 mg 03/07/20 22:00 Normodyne - PO BID [facility] Metoclopramide HCl 10 mg 03/07/20 15:45 03/07/20 16:48 Reglan Injection - IVPUSH 10 mg Q6H PRN Administration NAUSEA AND/OR VOMITING Miscellaneous 1 each 03/07/20 22:00 Lidoderm Patch Removal MC DAILY@2200 [facility] Morphine Sulfate 3 mg 03/07/20 15:45 Morphine Sulfate IVPUSH Q4H PRN PAIN LEVEL 7 - 10 Mupirocin 1 applic 03/07/20 22:00 Bactroban 2% Ointment - TP BID [facility] Oxycodone HCl 5 mg 03/07/20 17:00 03/07/20 17:00 Roxicodone - PO 5 mg Q6H PRN Administration 1-5 Pantoprazole Sodium 40 mg 03/08/20 10:00 Protonix - PO DAILY [facility] Laboratory Tests 03/06/20 03/07/20 10:20 14:00 COVID-19 (SHIRLENE) Not detected Hep Bs Antigen Pending Hep C Ab Diagnostic Pending Impression 1. ESRD 2. nausea and vomiting 3. gastroparesis 4. dm 5. htn 6. hx etoh abuse 7. leukocytosis 8. sepsis 9. bacteremia Plan - monitor cultures - ct pelvis - pain control - cont abx - called vascular to remove permacath - pt requested to stop HD today shortly after it was started - covid negative
--- NOTE | 2020-03-07 18:35 | EKG ---
Test Reason : Blood Pressure : / mmHG Vent. Rate : 088 BPM Atrial Rate : 088 BPM P-R Int : 154 ms QRS Dur : 086 ms QT Int : 392 ms P-R-T Axes : 027 -15 017 degrees QTc Int : 474 ms NORMAL SINUS RHYTHM NORMAL ECG WHEN COMPARED WITH ECG OF 06-MAR-2020 13:55, PREMATURE VENTRICULAR COMPLEXES ARE NO LONGER PRESENT Confirmed by MD SCOTT, YIN ([id number]) on 03/07/2020 6:34:31 PM Referred By: Confirmed By:YIN CHAVEZ MD
[2020-03-07] MEDS ORDERED: PT OWN MED DRAWER 7, Y5N ONE (21:15)
[2020-03-07] MEDS: MUPIROCIN 2% TOPICAL OINTMENT 22 GM TUBE TP SCH (21:22)
[2020-03-07] MEDS: LIDOCAINE PATCH REMOVAL MC SCH (21:22)
[2020-03-07] MEDS: GABAPENTIN 300 MG CAPSULE PO SCH (21:22)
[2020-03-07] MEDS: HEPARIN NA (PORCINE) 5,000 UNITS/ML 1ML VIAL SQ SCH (21:22)
[2020-03-07] MEDS: LABETALOL HCL 100 MG TABLET (FP) PO SCH (21:22)
[2020-03-07] MEDS: morphine SULFATE 4 MG/ML VIAL IVPUSH PRN (21:55)
[2020-03-08] MEDS ORDERED: PIPERACILLIN/TAZOBACTAM 2.25 GM VIAL IVPB ONE ×2 (02:05→09:33)
[2020-03-08] MEDS ORDERED: DEXTROSE 5%-WATER - 50 ML IVPB ONE ×2 (02:06→09:33)
[2020-03-08] MEDS: PIPERACILLIN/TAZOB 2.25 GM 2.25 GM in DEXTROSE 5%-WATER - 50 ML IVPB SCH ×2 (02:12→09:37)
[2020-03-08] MEDS: morphine SULFATE 4 MG/ML VIAL IVPUSH PRN ×2 (03:10→20:07)
[2020-03-08] MEDS: GABAPENTIN 300 MG CAPSULE PO SCH ×3 (05:55→22:31)
[2020-03-08] MEDS: HEPARIN NA (PORCINE) 5,000 UNITS/ML 1ML VIAL SQ SCH ×3 (05:55→22:29)
[2020-03-08] MEDS ORDERED: PT OWN MED DRAWER 7, Y5N ONE (09:33)
[2020-03-08] MEDS: oxyCODONE HCL 5 MG TABLET PO PRN ×2 (09:38→17:17)
[2020-03-08] MEDS: ERGOCALCIFEROL (VIT D2) 50,000 UNIT (1.25 MG) CAPSULE PO SCH ×2 (09:38→13:53)
[2020-03-08] MEDS: amLODIPine BESYLATE 10 MG TABLET (FP) PO SCH (09:39)
[2020-03-08] MEDS: FERROUS SO4 325 MG TABLET (FP) PO SCH (09:39)
[2020-03-08] MEDS: PANTOPRAZOLE 40 MG TABLET PO SCH (09:39)
[2020-03-08] MEDS: CYANOCOBALAMIN 1,000 MCG TABLET (FP) PO SCH (09:39)
[2020-03-08] MEDS: ACETAMINOPHEN 325 MG TABLET (FP) PO PRN ×2 (09:40→17:17)
[2020-03-08] MEDS: LABETALOL HCL 100 MG TABLET (FP) PO SCH ×2 (09:40→22:31)
[2020-03-08] MEDS: MUPIROCIN 2% TOPICAL OINTMENT 22 GM TUBE TP SCH ×2 (09:46→22:32)
[2020-03-08] MEDS: FLUTICASONE PROP 0.05% 16 GM NASAL SPRAY NS SCH (09:47)
[2020-03-08] MEDS ORDERED: GABAPENTIN 300 MG CAPSULE PO SCH (10:00)
--- NOTE | 2020-03-08 10:54 | PN ---
Progress Note (short form) - Note Progress Note: ID consult dictated 49 yo man esrd/hd- originally admitted on Monday with fever of 104 from HD- scans negative, treated with vanco/zosyn- left AMA Monday AM- patient and were contacted by multiple physicians to return to hospital for sepsis (grma negative bactremia) he returned yesterday zosyn resumed permacath removed notes he had a fall and has pain on his left buttock from the fall- xrays are pending tmax 100.5 covid negative klebsiella bacteremia- ?urine, ?permacath switch to cefazolin repeat blood cultures pending repeat ct scan pending buttock pain s/p fall- xrays pending esrd/hd Problem List - Problems (1) Gram-negative bacteremia Code(s): R78.81 - BACTEREMIA (2) ESRD (end stage renal disease) on dialysis Code(s): N18.6 - END STAGE RENAL DISEASE; Z99.2 - DEPENDENCE ON RENAL DIALYSIS (3) Buttock pain Code(s): M79.18 - MYALGIA, OTHER SITE
[2020-03-08] MEDS: CEFAZOLIN 1 GM/D5W 1 GM/50 ML BAG IVPB SCH ×2 (11:54→22:31)
--- NOTE | 2020-03-08 14:32 | PN ---
Progress Note, Physician History of Present Illness: Pt seen and examined at bedside. He still has hip pain. - Current Medication List Current Medications: Active Medications Acetaminophen (Tylenol -) 325 mg PO Q6H PRN PRN Reason: PAIN 1-5 Last Admin: 03/08/20 09:40 Dose: 325 mg Documented by: Amlodipine Besylate (Norvasc -) 10 mg PO DAILY [facility] Last Admin: 03/08/20 09:39 Dose: 10 mg Documented by: Cyanocobalamin (Vitamin B12 -) 1,000 mcg PO DAILY [facility] Last Admin: 03/08/20 09:39 Dose: 1,000 mcg Documented by: Ergocalciferol (Drisdol -) 50,000 unit PO Roberts [facility] Last Admin: 03/08/20 13:53 Dose: Not Given Documented by: Ferrous Sulfate (Feosol -) 325 mg PO DAILY [facility] Last Admin: 03/08/20 09:39 Dose: 325 mg Documented by: Fluticasone Propionate (Flonase -) 1 spray NS DAILY [facility] Last Admin: 03/08/20 09:47 Dose: Not Given Documented by: Gabapentin (Neurontin -) 300 mg PO TID [facility] Last Admin: 03/08/20 13:53 Dose: 300 mg Documented by: Heparin Sodium (Porcine) (Heparin -) 5,000 unit SQ TID [facility] Last Admin: 03/08/20 05:55 Dose: 5,000 unit Documented by: Sodium Chloride (Normal Saline -) 250 mls @ 3,000 mls/hr IV PRN PRN PRN Reason: Hypotension during Dialysis Stop: 03/08/20 11:53 Cefazolin Sodium (Ancef 1 Gm Premixed Ivpb -) 1 gm in 50 mls @ 100 mls/hr IVPB BID [facility] Last Admin: 03/08/20 11:54 Dose: 100 mls/hr Documented by: Labetalol HCl (Normodyne -) 300 mg PO BID [facility] Last Admin: 03/08/20 09:40 Dose: 300 mg Documented by: Metoclopramide HCl (Reglan Injection -) 10 mg IVPUSH Q6H PRN PRN Reason: NAUSEA AND/OR VOMITING Last Admin: 03/07/20 16:48 Dose: 10 mg Documented by: Miscellaneous (Lidoderm Patch Removal) 1 each MC DAILY@2200 [facility] Last Admin: 03/07/20 21:22 Dose: 1 each Documented by: Morphine Sulfate (Morphine Sulfate) 3 mg IVPUSH Q4H PRN PRN Reason: PAIN LEVEL 7 - 10 Last Admin: 03/08/20 03:10 Dose: 3 mg Documented by: Mupirocin (Bactroban 2% Ointment -) 1 applic TP BID [facility] Last Admin: 03/08/20 09:46 Dose: 1 applic Documented by: Oxycodone HCl (Roxicodone -) 5 mg PO Q6H PRN PRN Reason: 1-5 Last Admin: 03/08/20 09:38 Dose: 5 mg Documented by: Pantoprazole Sodium (Protonix -) 40 mg PO DAILY [facility] Last Admin: 03/08/20 09:39 Dose: 40 mg Documented by: - Objective Vital Signs: Vital Signs Temperature 97.4 F L 03/08/20 10:00 Pulse Rate 74 03/08/20 10:00 Respiratory Rate 18 03/08/20 10:00 Blood Pressure 142/80 03/08/20 10:00 O2 Sat by Pulse Oximetry (%) 99 03/08/20 10:00 Constitutional: Yes: Calm Eyes: Yes: Conjunctiva Clear Cardiovascular: Yes: S1, S2 Respiratory: Yes: CTA Bilaterally Gastrointestinal: Yes: Soft Genitourinary: Yes: WNL Musculoskeletal: Yes: Other (joint pain) Edema: Yes Neurological: Yes: Oriented Psychiatric: Yes: Oriented Labs: CBC, BMP 03/07/20 09:39 03/07/20 09:39 Problem List - Problems (1) ESRD (end stage renal disease) Code(s): N18.6 - END STAGE RENAL DISEASE (2) Bacteremia Code(s): R78.81 - BACTEREMIA Assessment/Plan Current Medications Generic Name Dose Route Start Last Admin Trade Name Freq PRN Reason Stop Dose Admin Acetaminophen 325 mg 03/07/20 17:00 03/08/20 09:40 Tylenol - PO 325 mg Q6H PRN Administration PAIN 1-5 Amlodipine Besylate 10 mg 03/08/20 10:00 03/08/20 09:39 Norvasc - PO 10 mg DAILY JESUS Administration Cyanocobalamin 1,000 mcg 03/08/20 10:00 03/08/20 09:39 Vitamin B12 - PO 1,000 mcg DAILY [facility] Administration Ergocalciferol 50,000 unit 03/07/20 12:45 03/08/20 13:53 Drisdol - PO Not Given Roberts [facility] Ferrous Sulfate 325 mg 03/08/20 10:00 03/08/20 09:39 Feosol - PO 325 mg DAILY [facility] Administration Fluticasone Propionate 1 spray 03/08/20 10:00 03/08/20 09:47 Flonase - NS Not Given DAILY J[facility]US Gabapentin 300 mg 03/07/20 22:00 03/08/20 13:53 Neurontin - PO 300 mg TID J[facility]US Administration Heparin Sodium (Porcine) 5,000 unit 03/07/20 14:00 03/08/20 05:55 Heparin - SQ 5,000 unit TID [facility] Administration Sodium Chloride 250 mls @ 3,000 mls/hr 03/07/20 11:53 Normal Saline - IV 03/08/20 11:53 PRN PRN Hypotension during Dialysis Cefazolin Sodium 1 gm in 50 mls @ 100 mls/hr 03/08/20 11:00 03/08/20 11:54 Ancef 1 Gm Premixed Ivpb - IVPB 100 mls/hr BID [facility] Administration Labetalol HCl 300 mg 03/07/20 22:00 03/08/20 09:40 Normodyne - PO 300 mg BID [facility] Administration Metoclopramide HCl 10 mg 03/07/20 15:45 03/07/20 16:48 Reglan Injection - IVPUSH 10 mg Q6H PRN Administration NAUSEA AND/OR VOMITING Miscellaneous 1 each 03/07/20 22:00 03/07/20 21:22 Lidoderm Patch Removal MC 1 each DAILY@2200 [facility] Administration Morphine Sulfate 3 mg 03/07/20 15:45 03/08/20 03:10 Morphine Sulfate IVPUSH 3 mg Q4H PRN Administration PAIN LEVEL 7 - 10 Mupirocin 1 applic 03/07/20 22:00 03/08/20 09:46 Bactroban 2% Ointment - TP 1 applic BID [facility]ESUS Administration Oxycodone HCl 5 mg 03/07/20 17:00 03/08/20 09:38 Roxicodone - PO 5 mg Q6H PRN Administration 1-5 Pantoprazole Sodium 40 mg 03/08/20 10:00 03/08/20 09:39 Protonix - PO 40 mg DAILY [facility] Administration Impression 1. ESRD 2. nausea and vomiting 3. gastroparesis 4. dm 5. htn 6. hx etoh abuse 7. leukocytosis 8. sepsis 9. bacteremia Plan - will call ortho for x-ray finding, spoke to radiology - HD tomorrow - cont abx - pain control - covid negative
[2020-03-08] MEDS: LIDOCAINE PATCH REMOVAL MC SCH (22:32)
[2020-03-09] MEDS: METOCLOPRAMIDE HCL INJECTION 10 MG/2 ML VIAL IVPUSH PRN (00:21)
[2020-03-09] MEDS: oxyCODONE HCL 5 MG TABLET PO PRN ×4 (00:37→21:36)
[2020-03-09] MEDS: ACETAMINOPHEN 325 MG TABLET (FP) PO PRN ×4 (00:38→21:36)
[2020-03-09] MEDS ORDERED: ONDANSETRON 4 MG/2 ML VIAL IVPUSH PRN (05:10)
[2020-03-09] MEDS: HEPARIN NA (PORCINE) 5,000 UNITS/ML 1ML VIAL SQ SCH ×4 (05:34→21:35)
[2020-03-09] MEDS: GABAPENTIN 300 MG CAPSULE PO SCH ×3 (05:34→21:35)
--- NOTE | 2020-03-09 08:40 | CON.ORTH ---
Consult Consult Specialty:: Orthopedics Reason for Consultation:: Left buttock pain s/p fall - History of Present Illness Chief Complaint: Left buttock pain History of Present Illness: This is a 49 year old male with significant PMHx of Left BKA, Right TKR, IDDM (noncompliant w/ medications), HTN and alcohol abuse who was admitted for sepsis workup. During his stay he complained of left buttock pain. He notes he fell off a 2 foot ladder 10 days ago, landing on his back. Patient states he began experiencing pain just left of his "tail bone" 4 days ago without any radiation. He notes the pain is worse with sitting, lying on his back and pressing in this area. Denies any hip pain bilaterally. Denies any previous injury to his low back or hips. - History Source History Provided By: Patient Limitations to Obtaining History: No Limitations - Past Medical History Cardio/Vascular: Yes: HTN, Hyperlipdemia Gastrointestinal: Yes: GERD, GI Bleed Renal/: Yes: Renal Failure, Hemodialysis Infectious Disease: Yes: MRSA (several years ago) Musculoskeletal: Yes: Other (left thigh pain) Endocrine: Yes: Diabetes Mellitus Dermatology: Yes: Cellulitis (mrsa) Additional Medical History: ? right knee fracture - Past Surgical History Past Surgical History: Yes: Amputation (left BKA), AV Fistula/Graft, Joint Replacement (R TKR) - Alcohol/Substance Use Hx Alcohol Use: No History of Substance Use: reports: Cocaine (intranasal and crack coaine abuse in past) - Smoking History Smoking history: Never smoked Have you smoked in the past 12 months: No Aproximately how many cigarettes per day: 0 If you are a former smoker, when did you quit?: 10 years ago - Social History Usual Living Arrangement: With Spouse (in elevator apartment without stairs) ADL: Independent (ambulated with L BKA prosthesis without assistive device) History of Recent Travel: No Home Medications - Allergies Allergies/Adverse Reactions: Allergies Allergy/AdvReac Type Severity Reaction Status Date / Time No Known Allergies Allergy Verified 03/06/20 14:24 - Home Medications Home Medications: Ambulatory Orders Amlodipine Besylate 10 mg PO DAILY #30 tablet 10/01/19 Pantoprazole Sodium [Protonix] 40 mg PO DAILY #30 tablet. 10/01/19 Ferrous Sulfate [Feosol] 325 mg PO DAILY 11/07/19 Labetalol HCl [Normodyne -] 300 mg PO BID 11/07/19 Gabapentin 300 mg PO DAILY 01/30/20 Cyanocobalamin [Vitamin B12 -] 1,000 mcg PO DAILY 03/06/20 Fluticasone Prop 0.05% Nasal [Flonase -] 1 spray NS DAILY 03/06/20 Mv-Mn/Iron/Folic Acid/Herb 190 [Vitamin D3 Complete Caplet] 50,000 units EP W EEKLY 03/06/20 Review of Systems - Review of Systems Musculoskeletal: reports: Back Pain Physical Exam for Ortho Vital Signs: Vital Signs Temperature 98.7 F 03/09/20 05:54 Pulse Rate 73 03/09/20 05:54 Respiratory Rate 20 03/09/20 05:54 Blood Pressure 112/77 03/09/20 05:54 O2 Sat by Pulse Oximetry (%) 97 03/08/20 21:00 Constitutional: Yes: Well Nourished (Patient is able to move around in bed and stand up for examination with minimal discomfort. ) Labs: CBC, BMP 03/07/20 09:39 03/07/20 09:39 - Lower Extremity Pelvis: Yes: Left (Lumbar spine: no skin lesions or edema. No midline tenderness. Tenderness to palpation just left of L5-S1. No tendernss over the paraspinal muscles. Negative SLR bilaterally. ) Leg: Yes: Left (Below the knee amputation. Dressing to lateral aspect of left leg is clean, dry and intact. No skin lesions about the hip. No swelling. No tenderness to palpation throughout the left hip. Negative log roll. Full ROM. NVID.), Right (Healed surgical scar to anterior knee. No skin lesions about the hip. No swelling. No tenderness to palpation throughout the left hip. Negative log roll. Full ROM. NVID. 2+ DP pulses.) Imaging - Results X-ray: Report Reviewed (Hip & Pelvis: mild cortical thickening to medial and lateral aspects of proximal right femoral diaphysis. No fractures seen.), Image Reviewed Assessment/Plan 49 year old male with significant PMHx of Left BKA, Right TKR, IDDM (noncompliant w/ medications), HTN and alcohol abuse who was admitted for sepsis workup and complaints of left buttock pain s/p fall 10 days ago. As per nurse, patient is walking around his room with prosthesis and cane. -As patient does not have any symptoms related to right hip/leg, XR findings appear to be benign. May be due to chronic stress reaction. -Recommend outpatient follow-up in 2-3 months for repeat imaging to ensure the lesion is stable. -Pain control -WBAT with left leg prosthesis and cane
--- NOTE | 2020-03-09 08:58 | PN ---
Progress Note, Physician - Current Medication List Current Medications: Active Medications Acetaminophen (Tylenol -) 325 mg PO Q6H PRN PRN Reason: PAIN 1-5 Last Admin: 03/09/20 00:38 Dose: 325 mg Documented by: Amlodipine Besylate (Norvasc -) 10 mg PO DAILY [facility] Last Admin: 03/08/20 09:39 Dose: 10 mg Documented by: Cyanocobalamin (Vitamin B12 -) 1,000 mcg PO DAILY [facility] Last Admin: 03/08/20 09:39 Dose: 1,000 mcg Documented by: Ergocalciferol (Drisdol -) 50,000 unit PO Roberts [facility] Last Admin: 03/08/20 13:53 Dose: Not Given Documented by: Ferrous Sulfate (Feosol -) 325 mg PO DAILY [facility] Last Admin: 03/08/20 09:39 Dose: 325 mg Documented by: Fluticasone Propionate (Flonase -) 1 spray NS DAILY [facility] Last Admin: 03/08/20 09:47 Dose: Not Given Documented by: Gabapentin (Neurontin -) 300 mg PO TID [facility] Last Admin: 03/09/20 05:34 Dose: 300 mg Documented by: Heparin Sodium (Porcine) (Heparin -) 5,000 unit SQ TID [facility] Last Admin: 03/09/20 05:34 Dose: 5,000 unit Documented by: Cefazolin Sodium (Ancef 1 Gm Premixed Ivpb -) 1 gm in 50 mls @ 100 mls/hr IVPB BID [facility] Last Admin: 03/08/20 22:31 Dose: 100 mls/hr Documented by: Sodium Chloride (Normal Saline -) 250 mls @ 3,000 mls/hr IV PRN PRN PRN Reason: Hypotension during Dialysis Stop: 03/09/20 14:33 Labetalol HCl (Normodyne -) 300 mg PO BID [facility] Last Admin: 03/08/20 22:31 Dose: 300 mg Documented by: Metoclopramide HCl (Reglan Injection -) 10 mg IVPUSH Q6H PRN PRN Reason: NAUSEA AND/OR VOMITING Last Admin: 03/09/20 00:21 Dose: 10 mg Documented by: Miscellaneous (Lidoderm Patch Removal) 1 each MC DAILY@2200 [facility] Last Admin: 03/08/20 22:32 Dose: 1 each Documented by: Morphine Sulfate (Morphine Sulfate) 3 mg IVPUSH Q4H PRN PRN Reason: PAIN LEVEL 7 - 10 Last Admin: 03/08/20 20:07 Dose: 3 mg Documented by: Mupirocin (Bactroban 2% Ointment -) 1 applic TP BID [facility] Last Admin: 03/08/20 22:32 Dose: 1 applic Documented by: Ondansetron HCl (Zofran Injection) 4 mg IVPUSH ONCE PRN PRN Reason: NAUSEA AND/OR VOMITING Oxycodone HCl (Roxicodone -) 5 mg PO Q6H PRN PRN Reason: 1-5 Last Admin: 03/09/20 00:37 Dose: 5 mg Documented by: Pantoprazole Sodium (Protonix -) 40 mg PO DAILY [facility] Last Admin: 03/08/20 09:39 Dose: 40 mg Documented by: - Objective Vital Signs: Vital Signs Temperature 98.7 F 03/09/20 05:54 Pulse Rate 73 03/09/20 05:54 Respiratory Rate 20 03/09/20 05:54 Blood Pressure 112/77 03/09/20 05:54 O2 Sat by Pulse Oximetry (%) 97 03/08/20 21:00 Cardiovascular: Yes: S1, S2 Respiratory: Yes: Regular, CTA Bilaterally Gastrointestinal: Yes: Normal Bowel Sounds, Soft. No: Tenderness Extremities: Yes: Other (amputation) Neurological: Yes: Alert, Oriented Labs: CBC, BMP 03/07/20 09:39 03/07/20 09:39 Problem List - Problems (1) Sepsis Assessment/Plan: - antibiotics as per ID - blood and urine cultures Microbiology 03/07/20 10:20 Blood - Peripheral Venous Blood Culture - Preliminary NO GROWTH OBTAINED AFTER 24 HOURS, INCUBATION TO CONTINUE FOR 4 DAYS. 03/07/20 10:24 Blood - Peripheral Venous Blood Culture - Preliminary NO GROWTH OBTAINED AFTER 24 HOURS, INCUBATION TO CONTINUE FOR 4 DAYS. - covid 19 testing negative Code(s): A41.9 - SEPSIS, UNSPECIFIED ORGANISM (2) ESRD (end stage renal disease) on dialysis Assessment/Plan: - cont with dialysis as per Dr Phillips/service Code(s): N18.6 - END STAGE RENAL DISEASE; Z99.2 - DEPENDENCE ON RENAL DIALYSIS (3) Diabetes Assessment/Plan: -cont SSI, accuchecks for DM 2 Code(s): E11.9 - TYPE 2 DIABETES MELLITUS WITHOUT COMPLICATIONS (4) Vomiting Assessment/Plan: - higher suspicion for gastroparesis - Dr Miguel Angel JENKINS - cont antiemetics prn - PPI Code(s): R11.10 - VOMITING, UNSPECIFIED
[2020-03-09] MEDS: CEFAZOLIN 1 GM/D5W 1 GM/50 ML BAG IVPB SCH (09:35)
[2020-03-09] MEDS: PANTOPRAZOLE 40 MG TABLET PO SCH (09:35)
[2020-03-09] MEDS: LABETALOL HCL 100 MG TABLET (FP) PO SCH ×2 (09:35→21:35)
[2020-03-09] MEDS: amLODIPine BESYLATE 10 MG TABLET (FP) PO SCH (09:35)
[2020-03-09] MEDS: FERROUS SO4 325 MG TABLET (FP) PO SCH (09:35)
[2020-03-09] MEDS: MUPIROCIN 2% TOPICAL OINTMENT 22 GM TUBE TP SCH ×2 (09:37→21:35)
[2020-03-09] MEDS: FLUTICASONE PROP 0.05% 16 GM NASAL SPRAY NS SCH (10:00)
[2020-03-09] MEDS: CYANOCOBALAMIN 1,000 MCG TABLET (FP) PO SCH (10:53)
--- NOTE | 2020-03-09 11:35 | PN ---
Progress Note (short form) - Note Progress Note: feels well still with buttock pain from earlier injury as outpatient on HD now permacath removed 03/07 Vital Signs Period Temp Pulse Resp BP Sys/Monet Pulse Ox Last 24 Hr 97.6 F-98.7 F 71-76 18-20 112-137/74-80 97 cor-rrr lungs clear abd soft,nt no ruq pain ext no edema CBC, BMP 03/07/20 09:39 03/07/20 09:39 Microbiology 03/07/20 10:20 Blood - Peripheral Venous Blood Culture - Preliminary NO GROWTH OBTAINED AFTER 24 HOURS, INCUBATION TO CONTINUE FOR 4 DAYS. 03/07/20 10:24 Blood - Peripheral Venous Blood Culture - Preliminary NO GROWTH OBTAINED AFTER 24 HOURS, INCUBATION TO CONTINUE FOR 4 DAYS. ecoli in urine culture 03/06 klebsiella in blood culture 03/06 a/p klebsiella bacteremia- suspect permacath, urine with ecoli continue cefazolin plan for 10 days of cefazolin with HD 2/2/3 d/w renal repeat blood cultures negative repeat ct abd/pelvis- no acute pathology buttock pain s/p fall-per ortho esrd/hd abnl lfts- repeat today-suspect sepsis and volume overload if remains elevated would get GI eval and sonogram of the RUQ Problem List - Problems (1) Gram-negative bacteremia Code(s): R78.81 - BACTEREMIA (2) ESRD (end stage renal disease) on dialysis Code(s): N18.6 - END STAGE RENAL DISEASE; Z99.2 - DEPENDENCE ON RENAL DIALYSIS (3) Buttock pain Code(s): M79.18 - MYALGIA, OTHER SITE
[2020-03-09] MEDS: morphine SULFATE 4 MG/ML VIAL IVPUSH PRN (12:53)
[2020-03-09 13:08] LABS: BASO % 0.6 % (0-2.0); EOS % 5.2 % (0-4.5); HEMATOCRIT 33.2 % (35.4-49); HEMOGLOBIN 10.5 GM/dL (11.7-16.9); LYMPH % 15.1 % (8-40); MCH 27.6 pg (25.7-33.7); MCHC 31.8 g/dl (32.0-35.9); MEAN CELL VOLUME 86.8 fl (80-96); MONO % 8.6 % (3.8-10.2); NEUT % 70.5 % (42.8-82.8); PLATELET COUNT 135 K/MM3 (134-434); RBC 3.82 M/mm3 (4.00-5.60); RDW 16.6 % (11.9-15.9); WHITE BLOOD COUNT 5.5 K/mm3 (4.0-10.0)
[2020-03-09] MEDS: ERGOCALCIFEROL (VIT D2) 50,000 UNIT (1.25 MG) CAPSULE PO SCH (13:58)
[2020-03-09] MEDS ORDERED: SODIUM CHLORIDE 250 ML IV PRN (14:13)
[2020-03-09 14:31] LABS: BLOOD UREA NITROGEN 70.1 mg/dL (7-18); TOT PROT 6.4 g/dl (6.4-8.2)
[2020-03-09 14:45] LABS: CREATININE 9.5 mg/dL (0.55-1.3)
--- NOTE | 2020-03-09 15:14 | PN ---
Progress Note, Physician History of Present Illness: Pt seen and examined at bedside. He still has hip pain. - Current Medication List Current Medications: Active Medications Acetaminophen (Tylenol -) 325 mg PO Q6H PRN PRN Reason: PAIN 1-5 Last Admin: 03/09/20 15:05 Dose: 325 mg Documented by: Amlodipine Besylate (Norvasc -) 10 mg PO DAILY [facility] Last Admin: 03/09/20 09:35 Dose: 10 mg Documented by: Cyanocobalamin (Vitamin B12 -) 1,000 mcg PO DAILY [facility] Last Admin: 03/09/20 10:53 Dose: 1,000 mcg Documented by: Ergocalciferol (Drisdol -) 50,000 unit PO Roberts [facility] Last Admin: 03/09/20 13:58 Dose: Not Given Documented by: Ferrous Sulfate (Feosol -) 325 mg PO DAILY [facility] Last Admin: 03/09/20 09:35 Dose: 325 mg Documented by: Fluticasone Propionate (Flonase -) 1 spray NS DAILY [facility] Last Admin: 03/09/20 10:00 Dose: Not Given Documented by: Gabapentin (Neurontin -) 300 mg PO TID [facility] Last Admin: 03/09/20 15:05 Dose: 300 mg Documented by: Heparin Sodium (Porcine) (Heparin -) 5,000 unit SQ TID [facility] Last Admin: 03/09/20 13:58 Dose: Not Given Documented by: Cefazolin Sodium (Ancef 1 Gm Premixed Ivpb -) 1 gm in 50 mls @ 100 mls/hr IVPB BID [facility] Last Admin: 03/09/20 09:35 Dose: 100 mls/hr Documented by: Sodium Chloride (Normal Saline -) 250 mls @ 3,000 mls/hr IV PRN PRN PRN Reason: Hypotension during Dialysis Stop: 03/10/20 14:12 Labetalol HCl (Normodyne -) 300 mg PO BID [facility] Last Admin: 03/09/20 09:35 Dose: 300 mg Documented by: Metoclopramide HCl (Reglan Injection -) 10 mg IVPUSH Q6H PRN PRN Reason: NAUSEA AND/OR VOMITING Last Admin: 03/09/20 00:21 Dose: 10 mg Documented by: Miscellaneous (Lidoderm Patch Removal) 1 each MC DAILY@2200 [facility] Last Admin: 03/08/20 22:32 Dose: 1 each Documented by: Morphine Sulfate (Morphine Sulfate) 3 mg IVPUSH Q4H PRN PRN Reason: PAIN LEVEL 7 - 10 Last Admin: 03/09/20 12:53 Dose: 3 mg Documented by: Mupirocin (Bactroban 2% Ointment -) 1 applic TP BID [facility] Last Admin: 03/09/20 09:37 Dose: 1 applic Documented by: Ondansetron HCl (Zofran Injection) 4 mg IVPUSH ONCE PRN PRN Reason: NAUSEA AND/OR VOMITING Oxycodone HCl (Roxicodone -) 5 mg PO Q6H PRN PRN Reason: 1-5 Last Admin: 03/09/20 15:05 Dose: 5 mg Documented by: Pantoprazole Sodium (Protonix -) 40 mg PO DAILY [facility] Last Admin: 03/09/20 09:35 Dose: 40 mg Documented by: - Objective Vital Signs: Vital Signs Temperature 97.6 F 03/09/20 10:00 Pulse Rate 65 03/09/20 14:00 Respiratory Rate 18 03/09/20 14:00 Blood Pressure 120/61 03/09/20 14:00 O2 Sat by Pulse Oximetry (%) 97 03/09/20 09:00 Constitutional: Yes: Calm Eyes: Yes: Conjunctiva Clear HENT: Yes: Atraumatic Neck: Yes: Supple Cardiovascular: Yes: S1, S2 Respiratory: Yes: CTA Bilaterally Gastrointestinal: Yes: Normal Bowel Sounds, Soft Edema: No Neurological: Yes: Oriented Psychiatric: Yes: Oriented Labs: CBC, BMP 03/09/20 12:00 03/09/20 12:00 Problem List - Problems (1) ESRD (end stage renal disease) Code(s): N18.6 - END STAGE RENAL DISEASE (2) Bacteremia Code(s): R78.81 - BACTEREMIA Assessment/Plan Current Medications Generic Name Dose Route Start Last Admin Trade Name Freq PRN Reason Stop Dose Admin Acetaminophen 325 mg 03/07/20 17:00 03/09/20 15:05 Tylenol - PO 325 mg Q6H PRN Administration PAIN 1-5 Amlodipine Besylate 10 mg 03/08/20 10:00 03/09/20 09:35 Norvasc - PO 10 mg DAILY [facility] Administration Cyanocobalamin 1,000 mcg 03/08/20 10:00 03/09/20 10:53 Vitamin B12 - PO 1,000 mcg DAILY [facility] Administration Ergocalciferol 50,000 unit 03/07/20 12:45 03/09/20 13:58 Drisdol - PO Not Given Roberts [facility] Ferrous Sulfate 325 mg 03/08/20 10:00 03/09/20 09:35 Feosol - PO 325 mg DAILY [facility] Administration Fluticasone Propionate 1 spray 03/08/20 10:00 03/09/20 10:00 Flonase - NS Not Given DAILY [facility] Gabapentin 300 mg 03/07/20 22:00 03/09/20 15:05 Neurontin - PO 300 mg TID [facility] Administration Heparin Sodium (Porcine) 5,000 unit 03/07/20 14:00 03/09/20 13:58 Heparin - SQ Not Given TID [facility] Cefazolin Sodium 1 gm in 50 mls @ 100 mls/hr 03/08/20 11:00 03/09/20 09:35 Ancef 1 Gm Premixed Ivpb - IVPB 100 mls/hr BID [facility] Administration Sodium Chloride 250 mls @ 3,000 mls/hr 03/09/20 14:13 Normal Saline - IV 03/10/20 14:12 PRN PRN Hypotension during Dialysis Labetalol HCl 300 mg 03/07/20 22:00 03/09/20 09:35 Normodyne - PO 300 mg BID [facility] Administration Metoclopramide HCl 10 mg 03/07/20 15:45 03/09/20 00:21 Reglan Injection - IVPUSH 10 mg Q6H PRN Administration NAUSEA AND/OR VOMITING Miscellaneous 1 each 03/07/20 22:00 03/08/20 22:32 Lidoderm Patch Removal MC 1 each DAILY@2200 [facility] Administration Morphine Sulfate 3 mg 03/07/20 15:45 03/09/20 12:53 Morphine Sulfate IVPUSH 3 mg Q4H PRN Administration PAIN LEVEL 7 - 10 Mupirocin 1 applic 03/07/20 22:00 03/09/20 09:37 Bactroban 2% Ointment - TP 1 applic BID [facility] Administration Ondansetron HCl 4 mg 03/09/20 05:10 Zofran Injection IVPUSH ONCE PRN NAUSEA AND/OR VOMITING Oxycodone HCl 5 mg 03/07/20 17:00 03/09/20 15:05 Roxicodone - PO 5 mg Q6H PRN Administration 1-5 Pantoprazole Sodium 40 mg 03/08/20 10:00 03/09/20 09:35 Protonix - PO 40 mg DAILY [facility] Administration Microbiology 03/07/20 10:24 Blood - Peripheral Venous Blood Culture - Preliminary NO GROWTH OBTAINED AFTER 24 HOURS, INCUBATION TO CONTINUE FOR 4 DAYS. 03/07/20 10:20 Blood - Peripheral Venous Blood Culture - Preliminary NO GROWTH OBTAINED AFTER 24 HOURS, INCUBATION TO CONTINUE FOR 4 DAYS. Laboratory Tests 03/07/20 03/09/20 09:39 12:00 Total Bilirubin 1.7 H 1.0 AST 68 H 33 ALT 39 25 Impression 1. ESRD 2. nausea and vomiting 3. gastroparesis 4. dm 5. htn 6. hx etoh abuse 7. leukocytosis 8. sepsis 9. bacteremia Plan - HD today - repeat cultures negative - bili is improved - abx per ID - ortho input appreciated - pain control - covid negative
[2020-03-09] MEDS: LIDOCAINE PATCH REMOVAL MC SCH (21:38)
[2020-03-09] MEDS ORDERED: ceFAZolin SODIUM 1 GM VIAL ONE (21:45)
[2020-03-09] MEDS ORDERED: DEXTROSE 5%-WATER - 50 ML IVPB ONE (21:45)
[2020-03-09] MEDS: CEFAZOLIN 1 GM in DEXTROSE 5%-WATER - 50 ML IVPB SCH (21:48)
[2020-03-10] MEDS: morphine SULFATE 4 MG/ML VIAL IVPUSH PRN (00:52)
[2020-03-10] MEDS: METOCLOPRAMIDE HCL INJECTION 10 MG/2 ML VIAL IVPUSH PRN (00:52)
[2020-03-10] MEDS: HEPARIN NA (PORCINE) 5,000 UNITS/ML 1ML VIAL SQ SCH ×2 (05:10→14:12)
[2020-03-10] MEDS: GABAPENTIN 300 MG CAPSULE PO SCH ×2 (05:10→13:22)
[2020-03-10] MEDS: CEFAZOLIN 1 GM in DEXTROSE 5%-WATER - 50 ML IVPB SCH (10:24)
--- NOTE | 2020-03-10 12:18 | PN ---
Progress Note, Physician Chief Complaint: Bacteremia ESRD History of Present Illness: NAD in the hallway, want's to sign out AMA. - Current Medication List Current Medications: Active Medications Acetaminophen (Tylenol -) 325 mg PO Q6H PRN PRN Reason: PAIN 1-5 Last Admin: 03/09/20 21:36 Dose: 325 mg Documented by: Amlodipine Besylate (Norvasc -) 10 mg PO DAILY [facility] Last Admin: 03/09/20 09:35 Dose: 10 mg Documented by: Cyanocobalamin (Vitamin B12 -) 1,000 mcg PO DAILY [facility] Last Admin: 03/09/20 10:53 Dose: 1,000 mcg Documented by: Ergocalciferol (Drisdol -) 50,000 unit PO Roberts [facility] Last Admin: 03/09/20 13:58 Dose: Not Given Documented by: Ferrous Sulfate (Feosol -) 325 mg PO DAILY [facility] Last Admin: 03/09/20 09:35 Dose: 325 mg Documented by: Fluticasone Propionate (Flonase -) 1 spray NS DAILY [facility] Last Admin: 03/09/20 10:00 Dose: Not Given Documented by: Gabapentin (Neurontin -) 300 mg PO TID [facility] Last Admin: 03/10/20 05:10 Dose: 300 mg Documented by: Heparin Sodium (Porcine) (Heparin -) 5,000 unit SQ TID [facility] Last Admin: 03/10/20 05:10 Dose: 5,000 unit Documented by: Sodium Chloride (Normal Saline -) 250 mls @ 3,000 mls/hr IV PRN PRN PRN Reason: Hypotension during Dialysis Stop: 03/10/20 14:12 Cefazolin Sodium 1 gm/ (Dextrose) 50 mls @ 100 mls/hr IVPB BID [facility] Last Admin: 03/10/20 10:24 Dose: 100 mls/hr Documented by: Labetalol HCl (Normodyne -) 300 mg PO BID [facility] Last Admin: 03/09/20 21:35 Dose: 300 mg Documented by: Metoclopramide HCl (Reglan Injection -) 10 mg IVPUSH Q6H PRN PRN Reason: NAUSEA AND/OR VOMITING Last Admin: 03/10/20 00:52 Dose: 10 mg Documented by: Miscellaneous (Lidoderm Patch Removal) 1 each MC DAILY@2200 [facility] Last Admin: 03/09/20 21:38 Dose: 1 each Documented by: Morphine Sulfate (Morphine Sulfate) 3 mg IVPUSH Q4H PRN PRN Reason: PAIN LEVEL 7 - 10 Last Admin: 03/10/20 00:52 Dose: 3 mg Documented by: Mupirocin (Bactroban 2% Ointment -) 1 applic TP BID [facility] Last Admin: 03/09/20 21:35 Dose: 1 applic Documented by: Oxycodone HCl (Roxicodone -) 5 mg PO Q6H PRN PRN Reason: 1-5 Last Admin: 03/09/20 21:36 Dose: 5 mg Documented by: Pantoprazole Sodium (Protonix -) 40 mg PO DAILY [facility] Last Admin: 03/09/20 09:35 Dose: 40 mg Documented by: - Objective Vital Signs: Vital Signs Temperature 97.8 F 03/10/20 06:00 Pulse Rate 89 03/10/20 06:00 Respiratory Rate 20 03/10/20 06:00 Blood Pressure 126/80 03/10/20 06:00 O2 Sat by Pulse Oximetry (%) 97 03/09/20 21:00 Constitutional: Yes: Well Nourished, No Distress, Calm Cardiovascular: Yes: Regular Rate and Rhythm Respiratory: Yes: Regular, CTA Bilaterally Gastrointestinal: Yes: Normal Bowel Sounds, Soft Genitourinary: Yes: WNL Musculoskeletal: Yes: WNL Extremities: Yes: WNL Edema: No Peripheral Pulses WNL: Yes Neurological: Yes: Alert, Oriented Psychiatric: Yes: Alert, Oriented Labs: CBC, BMP 03/09/20 12:00 03/09/20 12:00 Problem List - Problems (1) Bacteremia Assessment/Plan: -IV cefazolin 1 gm on Dialysis days -Cultures 03/06/20:+Kleb -ID on board -Afebrile -1 more dose of cefazolin before D/C Problems reviewed: Yes Code(s): R78.81 - BACTEREMIA (2) ESRD (end stage renal disease) on dialysis Assessment/Plan: -Nephrology on board -IV cefazolin 1 gm on dialysis days 2/2/3 in total of 10 dialysis days Problems reviewed: Yes Code(s): N18.6 - END STAGE RENAL DISEASE; Z99.2 - DEPENDENCE ON RENAL DIALYSIS (3) Diabetes Assessment/Plan: -Last A1c in 09/2019 was 5.0 Problems reviewed: Yes Code(s): E11.9 - TYPE 2 DIABETES MELLITUS WITHOUT COMPLICATIONS (4) Gastroparesis Assessment/Plan: -reglan 10 mg po tidac Problems reviewed: Yes Code(s): K31.84 - GASTROPARESIS (5) Abnormal liver enzymes Assessment/Plan: -U/S abd reviewed -Monitor trend Problems reviewed: Yes Code(s): R74.8 - ABNORMAL LEVELS OF OTHER SERUM ENZYMES Assessment/Plan See problem list
[2020-03-10] MEDS ORDERED: CEFAZOLIN 1 GM in DEXTROSE 5%-WATER - 50 ML IVPB ONE (12:23)
--- NOTE | 2020-03-10 12:27 | DS ---
Physical Examination Vital Signs: Vital Signs Temperature 97.8 F 03/10/20 06:00 Pulse Rate 89 03/10/20 06:00 Respiratory Rate 20 03/10/20 06:00 Blood Pressure 126/80 03/10/20 06:00 O2 Sat by Pulse Oximetry (%) 97 03/09/20 21:00 Findings/Remarks: Patient is a 49 year old female with a significant past medical history of IDDM (noncompliant w/ medications), GERD, HTN, Left BKA, Gastroparesis, UGIB, R -TKR, R forearm spider bite (requiring graft from the R thigh), and former alcohol Abuse (quit 2 years ago) who presents to the ED for further evaluation of abnormal lab results. Patient was admitted on 03/06 for sepsis, patient left AMA this morning, the hospitalist spoke to the patients this morning and urged her to bring her back to the ED for further treatment of abnormal lab results. (1) Bacteremia Assessment/Plan: -IV cefazolin 1 gm on Dialysis days -Cultures 03/06/20:+Kleb -ID on board -Afebrile -1 more dose of cefazolin before D/C Problems reviewed: Yes Code(s): R78.81 - BACTEREMIA (2) ESRD (end stage renal disease) on dialysis Assessment/Plan: -Nephrology on board -IV cefazolin 1 gm on dialysis days 2/2/3 in total of 10 dialysis days Problems reviewed: Yes Code(s): N18.6 - END STAGE RENAL DISEASE; Z99.2 - DEPENDENCE ON RENAL DIALYSIS (3) Diabetes Assessment/Plan: -Last A1c in 09/2019 was 5.0 Problems reviewed: Yes Code(s): E11.9 - TYPE 2 DIABETES MELLITUS WITHOUT COMPLICATIONS (4) Gastroparesis Assessment/Plan: -reglan 10 mg po tidac Problems reviewed: Yes Code(s): K31.84 - GASTROPARESIS (5) Abnormal liver enzymes Assessment/Plan: -U/S abd reviewed -Monitor trend Problems reviewed: Yes Code(s): R74.8 - ABNORMAL LEVELS OF OTHER SERUM ENZYMES Assessment/Plan See problem list Constitutional: Yes: Well Nourished, No Distress, Calm Cardiovascular: Yes: Regular Rate and Rhythm Respiratory: Yes: Regular, CTA Bilaterally Gastrointestinal: Yes: Normal Bowel Sounds, Soft Renal/: Yes: WNL Musculoskeletal: Yes: WNL Extremities: Yes: WNL Edema: No Peripheral Pulses WNL: Yes Neurological: Yes: Alert, Oriented Psychiatric: Yes: Alert, Oriented Labs: CBC, BMP 03/09/20 12:00 03/09/20 12:00 Discharge Summary Problems reviewed: Yes Reason For Visit: SEPSIS Current Active Problems Bacteremia (Acute) Buttock pain (Acute) ESRD (end stage renal disease) (Acute) ESRD (end stage renal disease) on dialysis (Acute) Gram-negative bacteremia (Acute) Vomiting (Acute) Condition: Stable - Instructions Referrals: Dallas Momin [Primary Care Provider] - Disposition: HOME - Home Medications Comprehensive Discharge Medication List: Ambulatory Orders Amlodipine Besylate 10 mg PO DAILY #30 tablet 10/01/19 Pantoprazole Sodium [Protonix] 40 mg PO DAILY #30 tablet. 10/01/19 Ferrous Sulfate [Feosol] 325 mg PO DAILY 11/07/19 Labetalol HCl [Normodyne -] 300 mg PO BID 11/07/19 Gabapentin 300 mg PO DAILY 01/30/20 Cyanocobalamin [Vitamin B12 -] 1,000 mcg PO DAILY 03/06/20 Fluticasone Prop 0.05% Nasal [Flonase -] 1 spray NS DAILY 03/06/20 Mv-Mn/Iron/Folic Acid/Herb 190 [Vitamin D3 Complete Caplet] 50,000 units EP WEEKLY 03/06/20 Prescription Drug Monitoring Program (I-STOP) results: I-STOP reviewed and no issues identified
[2020-03-10] MEDS ORDERED: ceFAZolin SODIUM 1 GM VIAL ONE (13:19)
[2020-03-10] MEDS ORDERED: DEXTROSE 5%-WATER - 50 ML IVPB ONE (13:19)
[2020-03-10] MEDS: ACETAMINOPHEN 325 MG TABLET (FP) PO PRN (13:31)
[2020-03-10] MEDS: oxyCODONE HCL 5 MG TABLET PO PRN (13:31)
[2020-03-10] MEDS: FERROUS SO4 325 MG TABLET (FP) PO SCH (14:11)
[2020-03-10] MEDS: amLODIPine BESYLATE 10 MG TABLET (FP) PO SCH (14:11)
[2020-03-10] MEDS: LABETALOL HCL 100 MG TABLET (FP) PO SCH (14:11)
[2020-03-10] MEDS: FLUTICASONE PROP 0.05% 16 GM NASAL SPRAY NS SCH (14:11)
[2020-03-10] MEDS: MUPIROCIN 2% TOPICAL OINTMENT 22 GM TUBE TP SCH (14:11)
[2020-03-10] MEDS: CYANOCOBALAMIN 1,000 MCG TABLET (FP) PO SCH (14:12)
[2020-03-10] MEDS: PANTOPRAZOLE 40 MG TABLET PO SCH (14:12)
[2020-03-10 14:31] VITALS: BP 145/84; PULSE 85; TEMP 98.5
--- NOTE | 2020-03-10 15:03 | PN ---
Progress Note, Physician History of Present Illness: Pt seen and examined at bedside. He is awake and alert. He denies fevers or chills. He is tolerating diet. - Objective Vital Signs: Vital Signs Temperature 98.5 F 03/10/20 14:28 Pulse Rate 85 03/10/20 14:28 Respiratory Rate 18 03/10/20 14:28 Blood Pressure 145/84 03/10/20 14:28 O2 Sat by Pulse Oximetry (%) 97 03/10/20 09:00 Constitutional: Yes: Calm Eyes: Yes: Conjunctiva Clear HENT: Yes: Atraumatic Neck: Yes: Supple Cardiovascular: Yes: S1, S2 Respiratory: Yes: CTA Bilaterally Gastrointestinal: Yes: Normal Bowel Sounds, Soft Genitourinary: Yes: WNL Musculoskeletal: Yes: WNL Edema: No Neurological: Yes: Oriented Psychiatric: Yes: Oriented Labs: CBC, BMP 03/09/20 12:00 03/09/20 12:00 Problem List - Problems (1) ESRD (end stage renal disease) Code(s): N18.6 - END STAGE RENAL DISEASE (2) Bacteremia Code(s): R78.81 - BACTEREMIA Assessment/Plan Current Medications Generic Name Dose Route Start Last Admin Trade Name Freq PRN Reason Stop Dose Admin Acetaminophen 325 mg 03/07/20 17:00 03/09/20 15:05 Tylenol - PO 325 mg Q6H PRN Administration PAIN 1-5 Amlodipine Besylate 10 mg 03/08/20 10:00 03/09/20 09:35 Norvasc - PO 10 mg DAILY [facility] Administration Cyanocobalamin 1,000 mcg 03/08/20 10:00 03/09/20 10:53 Vitamin B12 - PO 1,000 mcg DAILY [facility] Administration Ergocalciferol 50,000 unit 03/07/20 12:45 03/09/20 13:58 Drisdol - PO Not Given Roberts [facility] Ferrous Sulfate 325 mg 03/08/20 10:00 03/09/20 09:35 Feosol - PO 325 mg DAILY [facility] Administration Fluticasone Propionate 1 spray 03/08/20 10:00 03/09/20 10:00 Flonase - NS Not Given DAILY [facility] Gabapentin 300 mg 03/07/20 22:00 03/09/20 15:05 Neurontin - PO 300 mg TID [facility] Administration Heparin Sodium (Porcine) 5,000 unit 03/07/20 14:00 03/09/20 13:58 Heparin - SQ Not Given TID [facility] Cefazolin Sodium 1 gm in 50 mls @ 100 mls/hr 03/08/20 11:00 03/09/20 09:35 Ancef 1 Gm Premixed Ivpb - IVPB 100 mls/hr BID [facility] Administration Sodium Chloride 250 mls @ 3,000 mls/hr 03/09/20 14:13 Normal Saline - IV 03/10/20 14:12 PRN PRN Hypotension during Dialysis Labetalol HCl 300 mg 03/07/20 22:00 03/09/20 09:35 Normodyne - PO 300 mg BID [facility] Administration Metoclopramide HCl 10 mg 03/07/20 15:45 03/09/20 00:21 Reglan Injection - IVPUSH 10 mg Q6H PRN Administration NAUSEA AND/OR VOMITING Miscellaneous 1 each 03/07/20 22:00 03/08/20 22:32 Lidoderm Patch Removal MC 1 each DAILY@2200 [facility] Administration Morphine Sulfate 3 mg 03/07/20 15:45 03/09/20 12:53 Morphine Sulfate IVPUSH 3 mg Q4H PRN Administration PAIN LEVEL 7 - 10 Mupirocin 1 applic 03/07/20 22:00 03/09/20 09:37 Bactroban 2% Ointment - TP 1 applic BID [facility] Administration Ondansetron HCl 4 mg 03/09/20 05:10 Zofran Injection IVPUSH ONCE PRN NAUSEA AND/OR VOMITING Oxycodone HCl 5 mg 03/07/20 17:00 03/09/20 15:05 Roxicodone - PO 5 mg Q6H PRN Administration 1-5 Pantoprazole Sodium 40 mg 03/08/20 10:00 03/09/20 09:35 Protonix - PO 40 mg DAILY [facility] Administration Microbiology 03/07/20 10:24 Blood - Peripheral Venous Blood Culture - Preliminary NO GROWTH OBTAINED AFTER 48 HOURS, INCUBATION TO CONTINUE FOR 3 DAYS. 03/07/20 10:20 Blood - Peripheral Venous Blood Culture - Preliminary NO GROWTH OBTAINED AFTER 48 HOURS, INCUBATION TO CONTINUE FOR 3 DAYS. Impression 1. ESRD 2. nausea and vomiting 3. gastroparesis 4. dm 5. htn 6. hx etoh abuse 7. leukocytosis 8. sepsis 9. bacteremia Plan - pt has HD tomorrow as outpt - called and set up abx as outpt - ultrasound report reviewed - pt will follow with GI as outpt - pain control - covid negative
[2020-03-10] MEDS ORDERED: METOCLOPRAMIDE HCL 10 MG TABLET (FP) PO SCH (16:30)
== END 2020-03-10 14:31 | disposition home or self-care (01) | DRG 721 ==
LOC: JER 08:52 → JERBED 11:15 → J6S 14:30 → J7W 03-09 13:49
PROVIDERS: ADMIT Internal Medicine; ATTEND Family Medicine
PROC: 05PYX3Z Removal of Infusion Device from Upper Vein, External Approach (ICD-10-PCS; principal; 2020-03-09)
PROC: 5A1D70Z Performance of Urinary Filtration, Intermittent, Less than 6 Hours Per Day (ICD-10-PCS; 2020-03-09)
DX: T80.211A Bloodstream infection due to central venous catheter, initial encounter (principal); A41.4 Sepsis due to anaerobes; D72.829 Elevated white blood cell count, unspecified; K21.9 Gastro-esophageal reflux disease without esophagitis; B96.1 Klebsiella pneumoniae [K. pneumoniae] as the cause of diseases classified elsewhere; R74.8 Abnormal levels of other serum enzymes; R50.9 Fever, unspecified; M79.18 Myalgia, other site; R11.2 Nausea with vomiting, unspecified; E11.43 Type 2 diabetes mellitus with diabetic autonomic (poly)neuropathy; K31.84 Gastroparesis; I12.0 Hypertensive chronic kidney disease with stage 5 chronic kidney disease or end stage renal disease; E11.22 Type 2 diabetes mellitus with diabetic chronic kidney disease; N18.6 End stage renal disease; E78.00 Pure hypercholesterolemia, unspecified; Z89.512 Acquired absence of left leg below knee; Z96.651 Presence of right artificial knee joint; Z91.14 Patient's other noncompliance with medication regimen; Z99.2 Dependence on renal dialysis
CPT/HCPCS: 36415; 73523-TC-FY; 74176-TC; 76705-TC; 80053; 83735; 85025; 86803; 87040; 87340; 93005; 93010; 99285-25; J1644

== ENCOUNTER 2020-09-23 14:00 | Inpatient (IN) | payer OTHER ==
[2020-09-23] MEDS ORDERED: VANCOMYCIN/WATER 1,250 MG/250 ML BAG IVPB ONE (15:38)
[2020-09-23] MEDS ORDERED: ACETAMINOPHEN 325 MG TABLET (FP) PO ONE (15:41)
[2020-09-23] MEDS ORDERED: ACETAMINOPHEN 1000 MG/100 ML VIAL (NON FORMULARY) IVPB ONE ×2 (15:49→21:19)
[2020-09-23] MEDS ORDERED: ACETAMINOPHEN INJECTION 100 ML IVPB ONE ×2 (16:12→22:14)
[2020-09-23] MEDS ORDERED: VANCOMYCIN 500 MG VIAL (RESTRICTED TO ID ONLY) ONE (16:12)
[2020-09-23] MEDS ORDERED: VANCOMYCIN 1 GRAM (PRE-DOCKED) 1,000 MG/250 ML BAG IVPB ONE (16:12)
[2020-09-23] MEDS ORDERED: PIPERACILLIN/TAZOB 2.25 GM 2.25 GM in DEXTROSE 5%-WATER - 50 ML IVPB ONE (18:22)
[2020-09-23] MEDS ORDERED: morphine CARPU-JECT 4 MG/1 ML DISP.SYRIN IVPUSH ONE ×2 (18:23→21:32)
[2020-09-23 18:57] LABS: BASO % 0.5 % (0-2.0); EOS % 0.8 % (0-4.5); HEMATOCRIT 30.9 % (35.4-49); HEMOGLOBIN 9.6 GM/dL (11.7-16.9); LYMPH % 3.8 % (8-40); MCH 28.2 pg (25.7-33.7); MCHC 30.9 g/dl (32.0-35.9); MEAN CELL VOLUME 91.4 fl (80-96); MEAN PLT VOLUME 7.8 fl (7.5-11.1); MONO % 5.9 % (3.8-10.2); PLATELET COUNT 357 K/MM3 (134-434); RBC 3.39 M/mm3 (4.00-5.60); RDW 16.8 % (11.9-15.9); WHITE BLOOD COUNT 18.5 K/mm3 (4.0-10.0)
[2020-09-23 19:17] LABS: POTASSIUM 5.5 mmol/L (3.5-5.1)
[2020-09-23 19:19] LABS: ALBUMIN 2.9 g/dl (3.4-5.0); BLOOD UREA NITROGEN 63.7 mg/dL (7-18); CALCIUM 8.2 mg/dL (8.5-10.1)
[2020-09-23 19:24] LABS: BILIRUBIN,TOTAL 0.6 mg/dL (0.2-1)
[2020-09-23] MEDS ORDERED: morphine SULFATE 4 MG/ML VIAL ONE ×2 (19:44→22:14)
[2020-09-23 23:32] LABS: BLOOD UREA NITROGEN 71.9 mg/dL (7-18); CALCIUM 8.2 mg/dL (8.5-10.1)
[2020-09-23 23:37] LABS: CREATININE 8.3 mg/dL (0.55-1.3)
[2020-09-23] MEDS ORDERED: MORPHINE SULFATE 2 MG/ML VIAL SQ PRN (23:41)
[2020-09-24] MEDS ORDERED: HEPARIN NA (PORCINE) 5,000 UNITS/ML 1ML VIAL ONE (02:09)
[2020-09-24] MEDS ORDERED: PIPERACILLIN/TAZOB 2.25 GM 2.25 GM/50 ML BAG IVPB ONE (02:09)
[2020-09-24] MEDS: HEPARIN NA (PORCINE) 5,000 UNITS/ML 1ML VIAL SQ SCH ×3 (02:24→21:40)
[2020-09-24] MEDS: PIPERACILLIN/TAZOB 2.25 GM 2.25 GM in DEXTROSE 5%-WATER - 50 ML IVPB SCH ×4 (02:24→17:14)
[2020-09-24] MEDS ORDERED: PIPERACILLIN/TAZOB 2.25 GM 2.25 GM in DEXTROSE 5%-WATER - 50 ML IVPB SCH ×2 (03:00→09:00)
[2020-09-24 04:45] VITALS: BMI 33.2
[2020-09-24] MEDS ORDERED: oxyCODONE/APAP 1 EACH - MUST ORDER COMBO PRODUCT NR PRN (05:01)
[2020-09-24] MEDS: oxyCODONE HCL 5 MG TABLET PO PRN ×4 (07:19→21:35)
[2020-09-24] MEDS: ACETAMINOPHEN 325 MG TABLET (FP) PO PRN ×4 (07:20→21:36)
[2020-09-24 07:46] LABS: BASO % 0.5 % (0-2.0); EOS % 1.9 % (0-4.5); HEMATOCRIT 28.5 % (35.4-49); HEMOGLOBIN 9.2 GM/dL (11.7-16.9); LYMPH % 7.3 % (8-40); MCH 29.3 pg (25.7-33.7); MCHC 32.2 g/dl (32.0-35.9); MEAN PLT VOLUME 7.5 fl (7.5-11.1); MONO % 7.9 % (3.8-10.2); NEUT % 82.4 % (42.8-82.8); PLATELET COUNT 317 K/MM3 (134-434); RBC 3.14 M/mm3 (4.00-5.60); RDW 16.6 % (11.9-15.9); WHITE BLOOD COUNT 14.8 K/mm3 (4.0-10.0)
[2020-09-24 08:01] LABS: POTASSIUM 5.2 mmol/L (3.5-5.1)
[2020-09-24 08:04] LABS: CALCIUM 8.1 mg/dL (8.5-10.1)
[2020-09-24 09:03] LABS: CREATININE 8.6 mg/dL (0.55-1.3)
[2020-09-24] MEDS ORDERED: VANCOMYCIN 1 GM in D5W (PRE-DOCKED) 1,000 MG/250 ML IVPB SCH (10:00)
[2020-09-24] MEDS ORDERED: PIPERACILLIN/TAZOBACTAM 2.25 GM VIAL IVPB ONE ×2 (10:22→16:57)
[2020-09-24] MEDS ORDERED: DEXTROSE 5%-WATER - 50 ML IVPB ONE ×2 (10:22→16:58)
[2020-09-24] MEDS: FERROUS SO4 325 MG TABLET (FP) PO SCH ×2 (10:27→10:46)
[2020-09-24] MEDS: amLODIPine BESYLATE 5 MG TABLET (FP) PO SCH ×2 (10:28→10:46)
[2020-09-24] MEDS: LABETALOL HCL 100 MG TABLET (FP) PO SCH ×3 (10:28→21:35)
[2020-09-24] MEDS: GABAPENTIN 100 MG CAPSULE PO SCH ×3 (10:28→21:40)
[2020-09-24] MEDS ORDERED: VANCOMYCIN 1 GRAM (PRE-DOCKED) 1,000 MG/250 ML BAG IVPB ONE (11:50)
[2020-09-24] MEDS ORDERED: ACETAMINOPHEN 500 MG TABLET (FP) PO PRN (12:41)
[2020-09-24] MEDS ORDERED: traMADol HCL 50 MG TABLET PO PRN (12:43)
[2020-09-24] MEDS ORDERED: SODIUM CHLORIDE 250 ML IV PRN (13:49)
[2020-09-24] MEDS ORDERED: HEPARIN NA (PORCINE) 5,000 UNITS/ML 1ML VIAL IVPUSH ONE (14:00)
[2020-09-24] MEDS: HEPARIN NA (PORCINE) 5,000 UNITS/ML 1ML VIAL IVPUSH SCH ×3 (15:20→17:14)
[2020-09-25] MEDS ORDERED: PIPERACILLIN/TAZOBACTAM 2.25 GM VIAL IVPB ONE ×3 (01:04→16:50)
[2020-09-25] MEDS ORDERED: DEXTROSE 5%-WATER - 50 ML IVPB ONE ×3 (01:04→16:50)
[2020-09-25] MEDS: PIPERACILLIN/TAZOB 2.25 GM 2.25 GM in DEXTROSE 5%-WATER - 50 ML IVPB SCH ×3 (01:20→16:59)
[2020-09-25] MEDS: oxyCODONE HCL 5 MG TABLET PO PRN ×3 (08:19→17:09)
[2020-09-25] MEDS: ACETAMINOPHEN 325 MG TABLET (FP) PO PRN ×2 (08:20→17:09)
[2020-09-25] MEDS: GABAPENTIN 100 MG CAPSULE PO SCH ×2 (09:21→21:31)
[2020-09-25] MEDS: FERROUS SO4 325 MG TABLET (FP) PO SCH (09:23)
[2020-09-25] MEDS: HEPARIN NA (PORCINE) 5,000 UNITS/ML 1ML VIAL SQ SCH ×2 (09:27→21:30)
[2020-09-25] MEDS: amLODIPine BESYLATE 5 MG TABLET (FP) PO SCH (09:27)
[2020-09-25] MEDS: LABETALOL HCL 100 MG TABLET (FP) PO SCH ×2 (09:27→21:31)
[2020-09-25 10:36] LABS: BASO % 0.3 % (0-2.0); EOS % 1.6 % (0-4.5); HEMATOCRIT 29.2 % (35.4-49); HEMOGLOBIN 9.4 GM/dL (11.7-16.9); LYMPH % 3.8 % (8-40); MCH 28.8 pg (25.7-33.7); MEAN CELL VOLUME 90.1 fl (80-96); MEAN PLT VOLUME 7.8 fl (7.5-11.1); MONO % 6.4 % (3.8-10.2); NEUT % 87.9 % (42.8-82.8); PLATELET COUNT 319 K/MM3 (134-434); RBC 3.24 M/mm3 (4.00-5.60); RDW 16.9 % (11.9-15.9); WHITE BLOOD COUNT 20.6 K/mm3 (4.0-10.0)
[2020-09-25 10:38] LABS: POTASSIUM 4.5 mmol/L (3.5-5.1)
[2020-09-25 10:43] LABS: ALBUMIN 2.6 g/dl (3.4-5.0); CALCIUM 7.9 mg/dL (8.5-10.1)
[2020-09-25 10:47] LABS: BILIRUBIN,TOTAL 0.7 mg/dL (0.2-1); TOT PROT 6.4 g/dl (6.4-8.2)
[2020-09-25 10:51] LABS: CREATININE 8.3 mg/dL (0.55-1.3)
[2020-09-25] MEDS ORDERED: MIDAZOLAM HCL 2 MG/2 ML SINGLE DOSE VIAL ONE ×2 (11:50)
[2020-09-25] MEDS ORDERED: PROPOFOL 20 ML ONE (12:08)
[2020-09-25] MEDS ORDERED: BACITRACIN 50,000 UNITS VIAL NR ONE (12:19)
[2020-09-25] MEDS ORDERED: DEXAMETHASONE SOD PHOSPHATE 4 MG/1 ML VIAL ONE (12:46)
[2020-09-25] MEDS ORDERED: ONDANSETRON 4 MG/2 ML VIAL ONE (12:46)
[2020-09-25] MEDS ORDERED: oxyCODONE HCL 5 MG TABLET ONE (13:24)
[2020-09-25 14:29] LABS: ANISOCYTOSIS 1+; MACROCYTOSIS 0; PLATELET ESTIMATE NORMAL; TEAR DROP CELLS 1+; TOXIC GRANULATION 1+
[2020-09-25] MEDS ORDERED: VANCOMYCIN 1 GRAM (PRE-DOCKED) 1,000 MG/250 ML BAG IVPB ONE (17:06)
[2020-09-25] MEDS ORDERED: INSULIN (NOVOLOG) ASPART 100 UNITS/ML 10ML VIAL ONE (20:54)
[2020-09-26] MEDS ORDERED: DEXTROSE 5%-WATER - 50 ML IVPB ONE ×2 (01:23→12:38)
[2020-09-26] MEDS ORDERED: PIPERACILLIN/TAZOBACTAM 2.25 GM VIAL IVPB ONE ×2 (01:23→12:37)
[2020-09-26] MEDS: PIPERACILLIN/TAZOB 2.25 GM 2.25 GM in DEXTROSE 5%-WATER - 50 ML IVPB SCH ×4 (01:47→18:32)
[2020-09-26] MEDS ORDERED: EPOETIN ALFA-EPBX 4,000 UNIT/ML VIAL IVPUSH ONE (08:00)
[2020-09-26] MEDS ORDERED: SODIUM CHLORIDE 250 ML IV PRN (08:00)
[2020-09-26] MEDS ORDERED: HEPARIN NA (PORCINE) 5,000 UNITS/ML 1ML VIAL IVPUSH ONE (08:00)
[2020-09-26] MEDS: ACETAMINOPHEN 325 MG TABLET (FP) PO PRN (08:15)
[2020-09-26] MEDS: oxyCODONE HCL 5 MG TABLET PO PRN (08:16)
[2020-09-26 10:16] LABS: HEMATOCRIT 27.4 % (35.4-49); HEMOGLOBIN 8.6 GM/dL (11.7-16.9); MCH 28.6 pg (25.7-33.7); MCHC 31.5 g/dl (32.0-35.9); MEAN PLT VOLUME 8.1 fl (7.5-11.1); PLATELET COUNT 337 K/MM3 (134-434); RBC 3.01 M/mm3 (4.00-5.60); RDW 16.6 % (11.9-15.9); WHITE BLOOD COUNT 19.7 K/mm3 (4.0-10.0)
[2020-09-26] MEDS: HEPARIN NA (PORCINE) 5,000 UNITS/ML 1ML VIAL SQ SCH ×3 (10:51→21:14)
[2020-09-26] MEDS: amLODIPine BESYLATE 5 MG TABLET (FP) PO SCH ×2 (10:52→12:41)
[2020-09-26] MEDS: LABETALOL HCL 100 MG TABLET (FP) PO SCH ×3 (10:52→21:14)
[2020-09-26] MEDS: GABAPENTIN 100 MG CAPSULE PO SCH ×3 (10:52→21:14)
[2020-09-26] MEDS: FERROUS SO4 325 MG TABLET (FP) PO SCH ×2 (10:53→12:41)
[2020-09-26 11:14] LABS: POTASSIUM 4.8 mmol/L (3.5-5.1)
[2020-09-26 11:16] LABS: CALCIUM 7.1 mg/dL (8.5-10.1)
[2020-09-26 11:27] LABS: CREATININE 9.1 mg/dL (0.55-1.3)
[2020-09-26] MEDS ORDERED: CEFAZOLIN 3 GM in DEXTROSE 5%-WATER - 100 ML IVPB ONE (12:53)
[2020-09-27] MEDS: ACETAMINOPHEN 325 MG TABLET (FP) PO PRN (00:58)
[2020-09-27 06:50] VITALS: PULSE 77; TEMP 98.1
[2020-09-27 08:45] LABS: HEMOGLOBIN 8.4 GM/dL (11.7-16.9); MCH 28.8 pg (25.7-33.7); MCHC 32.4 g/dl (32.0-35.9); MEAN CELL VOLUME 88.9 fl (80-96); MEAN PLT VOLUME 7.9 fl (7.5-11.1); PLATELET COUNT 327 K/MM3 (134-434); RBC 2.93 M/mm3 (4.00-5.60); RDW 16.4 % (11.9-15.9); WHITE BLOOD COUNT 13.2 K/mm3 (4.0-10.0)
[2020-09-27 09:08] LABS: POTASSIUM 3.5 mmol/L (3.5-5.1)
[2020-09-27 09:12] LABS: ALBUMIN 2.6 g/dl (3.4-5.0)
[2020-09-27 09:17] LABS: CREATININE 6.1 mg/dL (0.55-1.3); TOT PROT 6.2 g/dl (6.4-8.2)
[2020-09-27 09:19] LABS: BILIRUBIN,TOTAL 0.6 mg/dL (0.2-1)
[2020-09-27 09:24] LABS: BLOOD UREA NITROGEN 41.5 mg/dL (7-18)
[2020-09-27 09:26] LABS: CALCIUM 6.9 mg/dL (8.5-10.1)
[2020-09-27] MEDS ORDERED: VANCOMYCIN 1 GRAM (PRE-DOCKED) 1,000 MG/250 ML BAG IVPB ONE (09:44)
[2020-09-27] MEDS: FERROUS SO4 325 MG TABLET (FP) PO SCH (10:14)
[2020-09-27] MEDS: amLODIPine BESYLATE 5 MG TABLET (FP) PO SCH (10:14)
[2020-09-27] MEDS: GABAPENTIN 100 MG CAPSULE PO SCH (10:14)
[2020-09-27] MEDS: LABETALOL HCL 100 MG TABLET (FP) PO SCH (10:14)
[2020-09-27] MEDS: HEPARIN NA (PORCINE) 5,000 UNITS/ML 1ML VIAL SQ SCH (10:15)
[2020-09-27] MEDS ORDERED: CALCITRIOL 0.25 MCG CAPSULE (FP) PO SCH (12:15)
[2020-09-27 12:53] VITALS: BP 137/95
== END 2020-09-27 13:07 | disposition left against medical advice (07) | DRG 871 ==
LOC: JER 14:00 → JERBED 21:19 → J7W 09-24 04:10
PROVIDERS: ADMIT Hospitalist; ATTEND Family Medicine
PROC: 5A1D70Z Performance of Urinary Filtration, Intermittent, Less than 6 Hours Per Day (ICD-10-PCS; 2020-09-24)
PROC: 0W980ZX Drainage of Chest Wall, Open Approach, Diagnostic (ICD-10-PCS; principal; 2020-09-25 13:00)
DX: A41.02 Sepsis due to Methicillin resistant Staphylococcus aureus (principal); N18.6 End stage renal disease; L03.313 Cellulitis of chest wall; H44.001 Unspecified purulent endophthalmitis, right eye; E87.1 Hypo-osmolality and hyponatremia; I12.0 Hypertensive chronic kidney disease with stage 5 chronic kidney disease or end stage renal disease; L02.213 Cutaneous abscess of chest wall; H57.10 Ocular pain, unspecified eye; Z99.2 Dependence on renal dialysis; E87.5 Hyperkalemia; Z89.512 Acquired absence of left leg below knee; K21.9 Gastro-esophageal reflux disease without esophagitis; R91.1 Solitary pulmonary nodule; E11.22 Type 2 diabetes mellitus with diabetic chronic kidney disease; D64.9 Anemia, unspecified
CPT/HCPCS: 36415; 70480-TC; 71250-TC; 80048; 80053; 85025; 85027; 86803; 87040; 87070; 87186; 87205; 87340; 93005; 93010; 93306-TC; 94760; 99285-25; C9803; G0480; J0131; J1644; Q5106; U0003

== ENCOUNTER 2020-11-07 08:08 | Inpatient (IN) | payer OTHER ==
[2020-11-07] MEDS ORDERED: SODIUM CHLORIDE 250 ML IV PRN (08:52)
[2020-11-07 10:06] LABS: BASO % 0.6 % (0-2.0); HEMATOCRIT 26.7 % (35.4-49); HEMOGLOBIN 8.5 GM/dL (11.7-16.9); LYMPH % 5.3 % (8-40); MCH 27.8 pg (25.7-33.7); MCHC 31.9 g/dl (32.0-35.9); MEAN CELL VOLUME 87.1 fl (80-96); MEAN PLT VOLUME 7.3 fl (7.5-11.1); NEUT % 85.1 % (42.8-82.8); PLATELET COUNT 604 K/MM3 (134-434); RBC 3.06 M/mm3 (4.00-5.60); RDW 16.9 % (11.9-15.9); WHITE BLOOD COUNT 18.4 K/mm3 (4.0-10.0)
[2020-11-07 10:30] LABS: POTASSIUM 3.9 mmol/L (3.5-5.1)
[2020-11-07 10:32] LABS: CALCIUM 8.7 mg/dL (8.5-10.1)
[2020-11-07 10:33] LABS: ALBUMIN 3.2 g/dl (3.4-5.0); BLOOD UREA NITROGEN 45.1 mg/dL (7-18)
[2020-11-07 10:36] LABS: CREATININE 6.2 mg/dL (0.55-1.3)
[2020-11-07 10:37] LABS: BILIRUBIN,TOTAL 0.6 mg/dL (0.2-1)
[2020-11-07 10:38] LABS: TOT PROT 7.8 g/dl (6.4-8.2)
[2020-11-07] MEDS ORDERED: VANCOMYCIN 1 GM in D5W (PRE-DOCKED) 1,000 MG/250 ML IVPB ONE (10:51)
[2020-11-07] MEDS ORDERED: VANCOMYCIN 1 GRAM (PRE-DOCKED) 1,000 MG/250 ML BAG IVPB ONE (11:14)
[2020-11-07] MEDS ORDERED: ACETAMINOPHEN 325 MG TABLET (FP) PO PRN (11:18)
[2020-11-07] MEDS ORDERED: CEFTRIAXONE 2 GM-D5W BAG 2 GM/50 ML BAG IVPB ONE (11:25)
[2020-11-07] MEDS ORDERED: GABAPENTIN 300 MG CAPSULE PO SCH (14:00)
[2020-11-07] MEDS ORDERED: CEFAZOLIN 3 GM in DEXTROSE 5%-WATER - 100 ML IVPB ONE (15:00)
[2020-11-07] MEDS ORDERED: LIDOCAINE HCL 1%, 10 MG/ML (20ML VIAL) ONE (17:08)
[2020-11-07 17:28] VITALS: BP 183/89; PULSE 92; TEMP 98.3; BMI 31.5
[2020-11-07] MEDS ORDERED: LABETALOL HCL 100 MG TABLET (FP) PO SCH (22:00)
[2020-11-08] MEDS ORDERED: FERROUS SO4 325 MG TABLET (FP) PO SCH (10:00)
[2020-11-08] MEDS ORDERED: PANTOPRAZOLE 40 MG TABLET PO SCH (10:00)
[2020-11-08] MEDS ORDERED: amLODIPine BESYLATE 10 MG TABLET (FP) PO SCH (10:00)
== END 2020-11-07 18:10 | disposition home or self-care (01) | DRG 314 ==
LOC: JER 08:08 → JERBED 10:14 → J4S 16:26
PROVIDERS: ADMIT Family Medicine; ATTEND Family Medicine
PROC: 05PYX3Z Removal of Infusion Device from Upper Vein, External Approach (ICD-10-PCS; principal; 2020-11-07)
PROC: 5A1D70Z Performance of Urinary Filtration, Intermittent, Less than 6 Hours Per Day (ICD-10-PCS; 2020-11-07)
DX: T82.7XXA Infection and inflammatory reaction due to other cardiac and vascular devices, implants and grafts, initial encounter (principal); N18.6 End stage renal disease; R78.81 Bacteremia; I12.0 Hypertensive chronic kidney disease with stage 5 chronic kidney disease or end stage renal disease; H54.40 Blindness, one eye, unspecified eye; E11.22 Type 2 diabetes mellitus with diabetic chronic kidney disease; Z99.2 Dependence on renal dialysis; K21.9 Gastro-esophageal reflux disease without esophagitis; Z89.512 Acquired absence of left leg below knee; E11.43 Type 2 diabetes mellitus with diabetic autonomic (poly)neuropathy; K31.84 Gastroparesis; D64.9 Anemia, unspecified; R91.8 Other nonspecific abnormal finding of lung field; Y83.8 Other surgical procedures as the cause of abnormal reaction of the patient, or of later complication, without mention of misadventure at the time of the procedure
CPT/HCPCS: 36415; 80053; 85025; 86803; 87040; 87186; 93005; 93010; 99285-25; C9803; U0003

== ENCOUNTER 2020-11-10 14:16 | Inpatient (IN) | payer OTHER ==
[2020-11-10 14:23] VITALS: BMI 31.5
[2020-11-10] MEDS ORDERED: CEFTRIAXONE 1 GM in DEXTROSE 5%-WATER - 100 ML IVPB ONE (16:31)
[2020-11-10 16:49] LABS: BASO % 0.9 % (0-2.0); EOS % 6.6 % (0-4.5); HEMATOCRIT 27.5 % (35.4-49); HEMOGLOBIN 8.5 GM/dL (11.7-16.9); LYMPH % 10.6 % (8-40); MCH 27.3 pg (25.7-33.7); MCHC 31.1 g/dl (32.0-35.9); MEAN CELL VOLUME 87.6 fl (80-96); MEAN PLT VOLUME 6.8 fl (7.5-11.1); NEUT % 76.9 % (42.8-82.8); PLATELET COUNT 578 K/MM3 (134-434); RBC 3.13 M/mm3 (4.00-5.60); RDW 17.2 % (11.9-15.9); WHITE BLOOD COUNT 11.2 K/mm3 (4.0-10.0)
[2020-11-10] MEDS ORDERED: CEFTRIAXONE 1 GM/50 ML BAG ONE (16:52)
[2020-11-10 16:59] LABS: INR 0.96 (0.83-1.09); PROTHROMBIN TIME (PATIENT) 11.8 SEC (9.7-13.0)
[2020-11-10 17:01] LABS: ACTIVATED PTT 34.3 SECONDS (25.2-36.5)
[2020-11-10 17:09] LABS: POTASSIUM 4.2 mmol/L (3.5-5.1)
[2020-11-10 17:11] LABS: CALCIUM 8.6 mg/dL (8.5-10.1)
[2020-11-10 17:12] LABS: BLOOD UREA NITROGEN 44.7 mg/dL (7-18)
[2020-11-10 17:15] LABS: CREATININE 6.3 mg/dL (0.55-1.3)
[2020-11-10 17:17] LABS: BILIRUBIN,TOTAL 0.5 mg/dL (0.2-1); TOT PROT 7.2 g/dl (6.4-8.2)
[2020-11-10] MEDS ORDERED: ACETAMINOPHEN 325 MG TABLET (FP) PO ONE (17:40)
[2020-11-10] MEDS ORDERED: ACETAMINOPHEN 325 MG TABLET (FP) ONE (17:41)
[2020-11-10] MEDS ORDERED: ACETAMINOPHEN 325 MG TABLET (FP) PO PRN (21:07)
[2020-11-10] MEDS ORDERED: LABETALOL HCL 100 MG TABLET (FP) ONE (22:12)
[2020-11-10] MEDS ORDERED: GABAPENTIN 100 MG CAPSULE ONE (22:12)
[2020-11-10] MEDS: LABETALOL HCL 100 MG TABLET (FP) PO SCH (22:23)
[2020-11-10] MEDS: GABAPENTIN 300 MG CAPSULE PO SCH (22:23)
[2020-11-11] MEDS ORDERED: EPOETIN ALFA-EPBX 10,000 UNIT/ML VIAL SQ ONE (08:15)
[2020-11-11] MEDS ORDERED: SODIUM CHLORIDE 250 ML IV PRN (08:27)
[2020-11-11] MEDS ORDERED: HEPARIN NA (PORCINE) 5,000 UNITS/ML 1ML VIAL IVPUSH ONE (08:30)
[2020-11-11 09:13] LABS: BASO % 0.8 % (0-2.0); EOS % 6.6 % (0-4.5); HEMATOCRIT 26.4 % (35.4-49); HEMOGLOBIN 8.3 GM/dL (11.7-16.9); LYMPH % 8.6 % (8-40); MCH 27.6 pg (25.7-33.7); MCHC 31.4 g/dl (32.0-35.9); MEAN PLT VOLUME 6.6 fl (7.5-11.1); MONO % 4.8 % (3.8-10.2); NEUT % 79.2 % (42.8-82.8); PLATELET COUNT 530 K/MM3 (134-434); RDW 17.1 % (11.9-15.9); WHITE BLOOD COUNT 10.7 K/mm3 (4.0-10.0)
[2020-11-11 09:57] LABS: CALCIUM 8.1 mg/dL (8.5-10.1)
[2020-11-11 09:58] LABS: ALBUMIN 2.8 g/dl (3.4-5.0); BLOOD UREA NITROGEN 48.6 mg/dL (7-18)
[2020-11-11] MEDS ORDERED: CEFAZOLIN 1 GM in DEXTROSE 5%-WATER - 50 ML IVPB SCH ×2 (10:00→10:39)
[2020-11-11 10:01] LABS: CREATININE 6.7 mg/dL (0.55-1.3)
[2020-11-11 10:03] LABS: BILIRUBIN,TOTAL 0.5 mg/dL (0.2-1); TOT PROT 6.7 g/dl (6.4-8.2)
[2020-11-11 10:09] LABS: POTASSIUM 4.3 mmol/L (3.5-5.1)
[2020-11-11] MEDS: GABAPENTIN 300 MG CAPSULE PO SCH ×3 (10:34→21:24)
[2020-11-11] MEDS: amLODIPine BESYLATE 10 MG TABLET (FP) PO SCH ×2 (10:35→12:46)
[2020-11-11] MEDS: PANTOPRAZOLE 40 MG TABLET PO SCH ×2 (10:35→12:46)
[2020-11-11] MEDS: LABETALOL HCL 100 MG TABLET (FP) PO SCH ×3 (10:35→21:25)
[2020-11-11] MEDS ORDERED: DEXTROSE 5%-WATER - 50 ML IVPB ONE (10:41)
[2020-11-11] MEDS ORDERED: ceFAZolin SODIUM 1 GM VIAL ONE (10:41)
[2020-11-11] MEDS: CEFAZOLIN 1 GM in DEXTROSE 5%-WATER - 50 ML IVPB SCH (12:42)
[2020-11-12] MEDS: GABAPENTIN 300 MG CAPSULE PO SCH (10:46)
[2020-11-12] MEDS: LABETALOL HCL 100 MG TABLET (FP) PO SCH (10:47)
[2020-11-12] MEDS: PANTOPRAZOLE 40 MG TABLET PO SCH (10:47)
[2020-11-12] MEDS: amLODIPine BESYLATE 10 MG TABLET (FP) PO SCH (10:47)
[2020-11-12] MEDS ORDERED: HEPARIN NA (PORCINE) 5,000 UNITS/ML 1ML VIAL ONE ×2 (12:17→13:08)
[2020-11-12] MEDS ORDERED: LIDOCAINE HCL 1%, 10 MG/ML (20ML VIAL) ONE (12:17)
[2020-11-12] MEDS ORDERED: DEXTROSE 5%-WATER - 50 ML IVPB ONE (13:40)
[2020-11-12] MEDS ORDERED: ceFAZolin SODIUM 1 GM VIAL ONE (13:40)
[2020-11-12] MEDS ORDERED: ceFAZolin SODIUM 1 GM VIAL IVPB ONE (14:39)
[2020-11-12] MEDS ORDERED: PROPOFOL 20 ML ONE ×4 (14:40→16:53)
[2020-11-12] MEDS ORDERED: MIDAZOLAM HCL 2 MG/2 ML SINGLE DOSE VIAL ONE ×2 (14:40→16:08)
[2020-11-12] MEDS ORDERED: ONDANSETRON 4 MG/2 ML VIAL IVPUSH PRN ×2 (14:59→17:42)
[2020-11-12] MEDS ORDERED: oxyCODONE HCL 5 MG TABLET PO PRN ×2 (14:59→17:42)
[2020-11-12] MEDS ORDERED: LIDOCAINE HCL 1%, 10 MG/ML (20ML VIAL) INF ONE (17:03)
[2020-11-12] MEDS ORDERED: POVIDONE-IODINE OINTMENT 10% - 28.4 GM TUBE ONE (17:09)
[2020-11-12] MEDS ORDERED: ACETAMINOPHEN 325 MG TABLET (FP) PO PRN (17:42)
[2020-11-12] MEDS: CEFAZOLIN 1 GM in DEXTROSE 5%-WATER - 50 ML IVPB SCH (18:24)
[2020-11-12 18:34] VITALS: BP 144/87; PULSE 75; TEMP 97.4
[2020-11-12] MEDS ORDERED: GABAPENTIN 300 MG CAPSULE PO SCH (22:00)
[2020-11-12] MEDS ORDERED: LABETALOL HCL 100 MG TABLET (FP) PO SCH (22:00)
[2020-11-13] MEDS ORDERED: CEFAZOLIN 1 GM in DEXTROSE 5%-WATER - 50 ML IVPB SCH (10:00)
[2020-11-13] MEDS ORDERED: PANTOPRAZOLE 40 MG TABLET PO SCH (10:00)
[2020-11-13] MEDS ORDERED: amLODIPine BESYLATE 10 MG TABLET (FP) PO SCH (10:00)
== END 2020-11-12 19:52 | disposition home or self-care (01) | DRG 673 ==
LOC: JER 14:16 → JERBED 15:38 → J8W 11-11 03:31
PROVIDERS: ADMIT Family Medicine; ATTEND Family Medicine
PROC: 03170ZD Bypass Right Brachial Artery to Upper Arm Vein, Open Approach (ICD-10-PCS; principal; 2020-11-10)
PROC: B34 Imaging, Upper Arteries, Ultrasonography (ICD-10-PCS; 2020-11-10)
PROC: 02H633Z Insertion of Infusion Device into Right Atrium, Percutaneous Approach (ICD-10-PCS; 2020-11-10)
PROC: B548ZZA Ultrasonography of Superior Vena Cava, Guidance (ICD-10-PCS; 2020-11-10)
PROC: 3E043GC Introduction of Other Therapeutic Substance into Central Vein, Percutaneous Approach (ICD-10-PCS; 2020-11-10)
PROC: 5A1D70Z Performance of Urinary Filtration, Intermittent, Less than 6 Hours Per Day (ICD-10-PCS; 2020-11-10)
PROC: 0JPT3XZ Removal of Tunneled Vascular Access Device from Trunk Subcutaneous Tissue and Fascia, Percutaneous Approach (ICD-10-PCS; 2020-11-10)
PROC: 0JH60XZ Insertion of Tunneled Vascular Access Device into Chest Subcutaneous Tissue and Fascia, Open Approach (ICD-10-PCS; 2020-11-10)
DX: I12.0 Hypertensive chronic kidney disease with stage 5 chronic kidney disease or end stage renal disease (principal); N18.6 End stage renal disease; R78.81 Bacteremia; E11.22 Type 2 diabetes mellitus with diabetic chronic kidney disease; E11.43 Type 2 diabetes mellitus with diabetic autonomic (poly)neuropathy; K21.9 Gastro-esophageal reflux disease without esophagitis; Z99.2 Dependence on renal dialysis; R91.8 Other nonspecific abnormal finding of lung field; Z87.891 Personal history of nicotine dependence
CPT/HCPCS: 36415; 71045-TC-FY; 76000-TC-FY; 80053; 84443; 85025; 85610; 85730; 86850; 86900; 86901; 87040; 87340; 88300-TC; 93005; 93010; 93306-TC; 93986; 94760; 99285-25; C9803; G0480; J1644; Q5106; U0003

== ENCOUNTER → 2021-01-11 | Day surgery (SDC) | payer OTHER ==
[~2021-01-11] MED LIST: MIDAZOLAM HCL 2 MG/2 ML SINGLE DOSE VIAL ONE; PROPOFOL 20 ML ONE; SUCCINYLCHOLINE CHLORIDE 200 MG/10 ML SYRINGE ONE
== END | disposition home or self-care (01) ==
LOC: JASU-SURG 05:22
PROVIDERS: ATTEND Surgery Vascular Surgery
DX: Z53.8 Procedure and treatment not carried out for other reasons (principal)

== ENCOUNTER 2021-02-05 11:54 | Inpatient (IN) | payer OTHER ==
[2021-02-05] MEDS ORDERED: SODIUM CHLORIDE 250 ML IV PRN (13:56)
[2021-02-05 14:29] LABS: BASO % 3.3 % (0-2.0); EOS % 4.1 % (0-4.5); HEMATOCRIT 29.5 % (35.4-49); HEMOGLOBIN 9.1 GM/dL (11.7-16.9); LYMPH % 7.6 % (8-40); MCH 28.9 pg (25.7-33.7); MCHC 30.9 g/dl (32.0-35.9); MEAN CELL VOLUME 93.5 fl (80-96); MONO % 7.4 % (3.8-10.2); NEUT % 77.6 % (42.8-82.8); PLATELET COUNT 349 K/MM3 (134-434); RBC 3.15 M/mm3 (4.00-5.60); RDW 16.8 % (11.9-15.9)
[2021-02-05 14:38] LABS: INR 0.96 (0.83-1.09); PROTHROMBIN TIME (PATIENT) 11.8 SEC (9.7-13.0)
[2021-02-05 14:40] LABS: ACTIVATED PTT 31.9 SECONDS (25.2-36.5)
[2021-02-05 14:56] LABS: CHLORIDE 104 mmol/L (98-107); SODIUM 130 mmol/L (136-145)
[2021-02-05 14:58] LABS: ALBUMIN 2.4 g/dl (3.4-5.0); ANION GAP 14 MMOL/L (8-16); BLOOD UREA NITROGEN 55.9 mg/dL (7-18); CALCIUM 7.7 mg/dL (8.5-10.1); CO2 12 mmol/L (21-32)
[2021-02-05 14:59] LABS: GLUCOSE,RANDOM 81 mg/dL (74-106)
[2021-02-05 15:01] LABS: SGOT/AST 11 U/L (15-37); SGPT/ALT 10 U/L (13-61)
[2021-02-05 15:03] LABS: BILIRUBIN,TOTAL 0.7 mg/dL (0.2-1); TOT PROT 8.2 g/dl (6.4-8.2)
[2021-02-05 15:04] LABS: ALK PHOS 396 U/L (45-117)
[2021-02-05 15:23] LABS: CREATININE 9.7 mg/dL (0.55-1.3)
[2021-02-05] MEDS ORDERED: DAPTOMYCIN 700 MG in SODIUM CHLORIDE 50 ML IVPB SCH (18:00)
[2021-02-05] MEDS ORDERED: ACETAMINOPHEN 1000 MG/100 ML VIAL (NON FORMULARY) IVPB ONE (19:31)
[2021-02-05] MEDS ORDERED: LABETALOL HCL 200 MG TABLET (FP) PO SCH (22:00)
[2021-02-05] MEDS: LABETALOL HCL 100 MG TABLET (FP) PO SCH (23:33)
[2021-02-05] MEDS: HEPARIN NA (PORCINE) 5,000 UNITS/ML 1ML VIAL SQ SCH (23:33)
[2021-02-05] MEDS: GABAPENTIN 300 MG CAPSULE PO SCH (23:33)
[2021-02-06] MEDS: CEFTAROLINE FOSAMIL ACETATE 200 MG in DEXTROSE 5%-WATER - 100 ML IVPB SCH ×2 (01:21→13:00)
[2021-02-06 02:46] VITALS: BMI 27.6
[2021-02-06 07:01] VITALS: TEMP 98.5
[2021-02-06] MEDS ORDERED: ACETAMINOPHEN 325 MG TABLET (FP) PO PRN (09:29)
[2021-02-06 09:36] LABS: BASO % 0.8 % (0-2.0); EOS % 3.6 % (0-4.5); HEMATOCRIT 26.3 % (35.4-49); HEMOGLOBIN 8.6 GM/dL (11.7-16.9); MCH 29.3 pg (25.7-33.7); MCHC 32.6 g/dl (32.0-35.9); MEAN CELL VOLUME 89.9 fl (80-96); MEAN PLT VOLUME 7.3 fl (7.5-11.1); MONO % 7.7 % (3.8-10.2); NEUT % 79.9 % (42.8-82.8); PLATELET COUNT 356 K/MM3 (134-434); RBC 2.93 M/mm3 (4.00-5.60); RDW 16.3 % (11.9-15.9); WHITE BLOOD COUNT 12.5 K/mm3 (4.0-10.0)
[2021-02-06] MEDS ORDERED: PANTOPRAZOLE 40 MG TABLET PO SCH (10:00)
[2021-02-06] MEDS ORDERED: amLODIPine BESYLATE 10 MG TABLET (FP) PO SCH (10:00)
[2021-02-06] MEDS ORDERED: FERROUS SO4 325 MG TABLET (FP) PO SCH (10:00)
[2021-02-06 10:10] LABS: ALBUMIN 2.3 g/dl (3.4-5.0); BLOOD UREA NITROGEN 38.3 mg/dL (7-18)
[2021-02-06 10:15] LABS: BILIRUBIN,TOTAL 0.8 mg/dL (0.2-1); TOT PROT 7.7 g/dl (6.4-8.2)
[2021-02-06] MEDS: HEPARIN NA (PORCINE) 5,000 UNITS/ML 1ML VIAL SQ SCH (10:23)
[2021-02-06] MEDS: LABETALOL HCL 100 MG TABLET (FP) PO SCH (10:23)
[2021-02-06] MEDS: GABAPENTIN 300 MG CAPSULE PO SCH (10:23)
[2021-02-06 10:29] LABS: CALCIUM 7.4 mg/dL (8.5-10.1)
[2021-02-06] MEDS ORDERED: PT OWN MED DRAWER 7, Y5N ONE (11:08)
[2021-02-06] MEDS ORDERED: WATER IVPB SCH (12:30)
[2021-02-06] MEDS ORDERED: CEFTAROLINE FOSAMIL ACETATE IVPB SCH (12:30)
[2021-02-06] MEDS ORDERED: DEXTROSE 5% IVPB SCH (12:30)
[2021-02-06 13:46] VITALS: BP 111/50; PULSE 91
== END 2021-02-06 18:25 | disposition left against medical advice (07) | DRG 682 ==
LOC: JER 11:54 → JERBED 13:19 → J5S 18:15
PROVIDERS: ADMIT Family Medicine; ATTEND Family Medicine
PROC: 5A1D70Z Performance of Urinary Filtration, Intermittent, Less than 6 Hours Per Day (ICD-10-PCS; principal; 2021-02-05)
DX: I12.0 Hypertensive chronic kidney disease with stage 5 chronic kidney disease or end stage renal disease (principal); N18.6 End stage renal disease; R78.81 Bacteremia; E11.22 Type 2 diabetes mellitus with diabetic chronic kidney disease; Z99.2 Dependence on renal dialysis; Z89.512 Acquired absence of left leg below knee; R91.1 Solitary pulmonary nodule; D64.9 Anemia, unspecified; B95.62 Methicillin resistant Staphylococcus aureus infection as the cause of diseases classified elsewhere; K31.84 Gastroparesis
CPT/HCPCS: 36415; 71045-TC-FY; 80053; 82550; 83036; 84443; 84484; 85025; 85610; 85730; 86803; 86850; 86900; 86901; 87040; 87340; 93005; 93010; 99284-25; C9803; J0131; J0878; J1644; U0003; U0005

== ENCOUNTER 2021-02-19 12:38 | Emergency (ER) | payer OTHER ==
[2021-02-19 12:48] VITALS: BMI 30.1
[2021-02-19 14:09] LABS: BASO % 1.9 % (0-2.0); HEMATOCRIT 21.2 % (35.4-49); LYMPH % 11.9 % (8-40); MCH 28.8 pg (25.7-33.7); MCHC 32.5 g/dl (32.0-35.9); MEAN CELL VOLUME 88.8 fl (80-96); MEAN PLT VOLUME 6.4 fl (7.5-11.1); MONO % 9.6 % (3.8-10.2); NEUT % 70.6 % (42.8-82.8); PLATELET COUNT 495 K/MM3 (134-434); RBC 2.39 M/mm3 (4.00-5.60); RDW 18.1 % (11.9-15.9); WHITE BLOOD COUNT 11.9 K/mm3 (4.0-10.0)
[2021-02-19 14:25] LABS: HEMOGLOBIN 6.9 GM/dL (11.7-16.9)
[2021-02-19 14:39] LABS: ALBUMIN 2.4 g/dl (3.4-5.0); BLOOD UREA NITROGEN 45.9 mg/dL (7-18)
[2021-02-19 14:42] LABS: CREATININE 5.8 mg/dL (0.55-1.3)
[2021-02-19 14:44] LABS: BILIRUBIN,TOTAL 0.4 mg/dL (0.2-1); TOT PROT 7.7 g/dl (6.4-8.2)
[2021-02-19] MEDS ORDERED: EPOETIN ALFA-EPBX 10,000 UNIT/ML VIAL SQ ONE (14:48)
[2021-02-19 14:51] LABS: ANISOCYTOSIS 1+; MACROCYTOSIS 1+; PLATELET ESTIMATE INCREASED
[2021-02-19 14:53] LABS: CALCIUM 8.7 mg/dL (8.5-10.1)
[2021-02-19 19:22] VITALS: BP 164/55; PULSE 77; TEMP 98.1
== END 2021-02-19 19:00 | disposition left against medical advice (07) ==
LOC: JER 12:38
DX: D64.9 Anemia, unspecified (principal); R53.1 Weakness
CPT/HCPCS: 36415; 36430; 80053; 85025; 86850; 86900; 86901; 86922; 99285-25; P9058; Q5106

== ENCOUNTER 2021-05-27 04:27 | Day surgery (SDC) | payer OTHER ==
[2021-05-25 14:20] VITALS: BMI 28.7
[2021-05-27] MEDS ORDERED: ceFAZolin SODIUM 1 GM VIAL IVPB ONE (10:20)
[2021-05-27] MEDS ORDERED: morphine SULFATE 4 MG/ML VIAL IVPUSH PRN (11:38)
[2021-05-27] MEDS ORDERED: LACTATED RINGERS SOLUTION 1,000 ML IV SCH (12:00)
[2021-05-27] MEDS ORDERED: VANCOMYCIN 1 GRAM (PRE-DOCKED) 1,000 MG/250 ML BAG IVPB ONE (14:14)
[2021-05-27] MEDS: ONDANSETRON 4 MG/2 ML VIAL IVPUSH PRN ×2 (14:30→16:44)
[2021-05-27] MEDS ORDERED: ONDANSETRON 4 MG/2 ML VIAL ONE (14:31)
[2021-05-27 15:29] LABS: CHLORIDE 98 mmol/L (98-107); SODIUM 134 mmol/L (136-145)
[2021-05-27 15:31] LABS: ANION GAP 15 MMOL/L (8-16); BLOOD UREA NITROGEN 51.2 mg/dL (7-18); CALCIUM 8.4 mg/dL (8.5-10.1); CO2 20 mmol/L (21-32); GLUCOSE,RANDOM 80 mg/dL (74-106)
[2021-05-27 15:36] LABS: CREATININE 7.9 mg/dL (0.55-1.3)
[2021-05-27 17:41] VITALS: BP 148/54; PULSE 72; TEMP 97.8
[2021-05-27] MEDS ORDERED: GABAPENTIN 300 MG CAPSULE PO SCH (22:00)
[2021-05-27] MEDS ORDERED: traMADol HCL 50 MG TABLET PO SCH (22:00)
[2021-05-27] MEDS ORDERED: LABETALOL HCL 100 MG TABLET (FP) PO SCH (22:00)
[2021-05-28] MEDS ORDERED: amLODIPine BESYLATE 10 MG TABLET (FP) PO SCH (10:00)
== END 2021-05-27 17:35 | disposition home or self-care (01) ==
LOC: JASUSAT 04:27 → JASU-SURG 04:27 → JASUSAT 17:35
PROVIDERS: ATTEND Surgery Vascular Surgery
PROC: 03PY0JZ Removal of Synthetic Substitute from Upper Artery, Open Approach (ICD-10-PCS; principal; 2021-05-27 09:00)
PROC: 0J9N0ZZ Drainage of Right Lower Leg Subcutaneous Tissue and Fascia, Open Approach (ICD-10-PCS; 2021-05-27 09:00)
DX: T82.7XXA Infection and inflammatory reaction due to other cardiac and vascular devices, implants and grafts, initial encounter (principal); Y82.8 Other medical devices associated with adverse incidents; Y92.9 Unspecified place or not applicable; L02.415 Cutaneous abscess of right lower limb; I12.0 Hypertensive chronic kidney disease with stage 5 chronic kidney disease or end stage renal disease; E11.22 Type 2 diabetes mellitus with diabetic chronic kidney disease; N18.6 End stage renal disease; Z99.2 Dependence on renal dialysis
CPT/HCPCS: 36415; 80048; 82947; 84132; 86850; 86900; 86901; 87040; 87070; 87077; 87186; 87205; 94760; Q0162

== ENCOUNTER 2021-11-06 07:46 | Emergency (ER) | payer OTHER ==
[2021-11-06 08:15] VITALS: BP 151/98; PULSE 74; TEMP 98.3; BMI 31.5
== END 2021-11-06 10:15 | disposition home or self-care (01) ==
LOC: JER 07:46
DX: S80.211A Abrasion, right knee, initial encounter (principal); W22.8XXA Striking against or struck by other objects, initial encounter; Z48.01 Encounter for change or removal of surgical wound dressing
CPT/HCPCS: 76882-TC-RT-FY; 99283-25

== ENCOUNTER 2022-02-03 10:39 | Day surgery (SDC) | payer OTHER ==
[2022-02-03] MEDS ORDERED: FERRIC CARBOXYMALTOSE 750 MG in SODIUM CHLORIDE 250 ML IVPB ONE (11:15)
[2022-02-03 12:28] VITALS: BP 136/61; PULSE 75; TEMP 98.8
== END 2022-02-03 13:15 | disposition home or self-care (01) ==
LOC: FINFUSION 10:39 → FM/S 10:42 → FINFUSION 13:15
PROVIDERS: ATTEND Family Medicine
PROC: 3E033GC Introduction of Other Therapeutic Substance into Peripheral Vein, Percutaneous Approach (ICD-10-PCS; principal; 2022-02-03)
DX: D50.9 Iron deficiency anemia, unspecified (principal)
CPT/HCPCS: 96365; J1439

== ENCOUNTER 2022-02-22 10:42 | Day surgery (SDC) | payer OTHER ==
[2022-02-22] MEDS ORDERED: FERRIC CARBOXYMALTOSE 750 MG in SODIUM CHLORIDE 250 ML IVPB ONE (11:15)
[2022-02-22 11:55] VITALS: BP 103/36; TEMP 98.1
[2022-02-22 12:48] VITALS: PULSE 82
== END 2022-02-22 12:50 | disposition home or self-care (01) ==
LOC: FINFUSION 10:42 → FM/S 10:49 → FINFUSION 12:50
PROVIDERS: ATTEND Family Medicine
PROC: 3E033GC Introduction of Other Therapeutic Substance into Peripheral Vein, Percutaneous Approach (ICD-10-PCS; principal; 2022-02-22)
DX: D50.9 Iron deficiency anemia, unspecified (principal)
CPT/HCPCS: 96365; J1439

== ENCOUNTER 2022-03-05 10:17 | Emergency (ER) | payer OTHER ==
[2022-03-05 10:33] VITALS: PULSE 78; BMI 29.9
[2022-03-05 13:19] LABS: BASO % 0.7 % (0-2.0); EOS % 6.2 % (0-4.5); HEMOGLOBIN 7.2 GM/dL (11.7-16.9); LYMPH % 14.6 % (8-40); MCH 26.3 pg (25.7-33.7); MCHC 32.7 g/dl (32.0-35.9); MEAN CELL VOLUME 80.4 fl (80-96); MEAN PLT VOLUME 7.1 fl (7.5-11.1); MONO % 6.7 % (3.8-10.2); NEUT % 71.8 % (42.8-82.8); PLATELET COUNT 188 10^3/uL (134-434); RBC 2.74 M/mm3 (4.00-5.60); RDW 18.9 % (11.9-15.9); WHITE BLOOD COUNT 3.4 K/mm3 (4.0-10.0)
[2022-03-05 13:27] LABS: INR 1.08 (0.83-1.09); PROTHROMBIN TIME (PATIENT) 12.4 SEC (9.7-13.0)
[2022-03-05 13:31] LABS: CALCIUM 8.7 mg/dL (8.5-10.1)
[2022-03-05 13:33] LABS: BLOOD UREA NITROGEN 18.4 mg/dL (7-18)
[2022-03-05 13:35] LABS: CREATININE 3.8 mg/dL (0.55-1.3)
[2022-03-05 13:37] LABS: BILIRUBIN,TOTAL 0.6 mg/dL (0.2-1)
[2022-03-05 13:39] LABS: TOT PROT 8.3 g/dl (6.4-8.2)
[2022-03-05 20:50] VITALS: BP 148/72; TEMP 98.1
== END 2022-03-05 21:06 | disposition home or self-care (01) ==
LOC: JER 10:17
DX: D64.9 Anemia, unspecified (principal)
CPT/HCPCS: 36415; 36430; 80053; 85025; 85610; 86850; 86900; 86901; 86922; 99283-25; P9058

== ENCOUNTER 2022-05-26 06:52 | Inpatient (IN) | payer OTHER ==
[2022-05-26 07:03] VITALS: BMI 31.7
[2022-05-26 09:19] LABS: EOS % 7.9 % (0-4.5); HEMATOCRIT 23.3 % (35.4-49); HEMOGLOBIN 7.2 GM/dL (11.7-16.9); LYMPH % 12.5 % (8-40); MCH 28.7 pg (25.7-33.7); MCHC 30.8 g/dl (32.0-35.9); MEAN CELL VOLUME 93.3 fl (80-96); MEAN PLT VOLUME 7.5 fl (7.5-11.1); MONO % 9.7 % (3.8-10.2); NEUT % 68.9 % (42.8-82.8); PLATELET COUNT 296 10^3/uL (134-434); RBC 2.49 M/mm3 (4.00-5.60); RDW 22.5 % (11.9-15.9); WHITE BLOOD COUNT 5.9 K/mm3 (4.0-10.0)
[2022-05-26 09:34] LABS: INR 1.1 (0.83-1.09); PROTHROMBIN TIME (PATIENT) 12.7 SEC (9.7-13.0)
[2022-05-26 09:36] LABS: ACTIVATED PTT 33.1 SECONDS (25.2-36.5)
[2022-05-26 09:42] LABS: CHLORIDE 106 mmol/L (98-107); SODIUM 138 mmol/L (136-145)
[2022-05-26 09:44] LABS: CALCIUM 7.8 mg/dL (8.5-10.1)
[2022-05-26 09:46] LABS: ALBUMIN 3.7 g/dl (3.4-5.0); ANION GAP 16 MMOL/L (8-16); BLOOD UREA NITROGEN 56.9 mg/dL (7-18); CO2 16 mmol/L (21-32); GLUCOSE,RANDOM 82 mg/dL (74-106); MAGNESIUM 2.3 mg/dL (1.8-2.4)
[2022-05-26 09:48] LABS: PHOSPHOROUS 7.2 mg/dL (2.5-4.9); SGOT/AST 26 U/L (15-37); SGPT/ALT 15 U/L (13-61)
[2022-05-26 09:49] LABS: BILIRUBIN,TOTAL 0.5 mg/dL (0.2-1); TOT PROT 7.6 g/dl (6.4-8.2)
[2022-05-26 09:51] LABS: ALK PHOS 228 U/L (45-117)
[2022-05-26 10:04] LABS: CREATININE 8.6 mg/dL (0.55-1.3)
[2022-05-26 13:45] VITALS: RESP 18; TEMP 98.4
[2022-05-26] MEDS ORDERED: SODIUM CHLORIDE 250 ML IV PRN (14:00)
[2022-05-26] MEDS ORDERED: EPOETIN ALFA-EPBX 20,000 UNIT/ML VIAL IVPUSH ONE (14:00)
[2022-05-26 15:57] VITALS: PULSE 77
[2022-05-26 16:01] VITALS: BP 170/90
[2022-05-26] MEDS ORDERED: LABETALOL HCL 100 MG TABLET (FP) PO SCH (22:00)
[2022-05-26] MEDS ORDERED: GABAPENTIN 300 MG CAPSULE PO SCH (22:00)
[2022-05-27] MEDS ORDERED: amLODIPine BESYLATE 10 MG TABLET (FP) PO SCH (10:00)
[2022-05-27] MEDS ORDERED: PANTOPRAZOLE 40 MG TABLET PO SCH (10:00)
== END 2022-05-26 16:45 | disposition left against medical advice (07) | DRG 811 ==
LOC: JER 06:52 → JERBED 08:53
PROVIDERS: ADMIT Family Medicine; ATTEND Family Medicine
PROC: 5A1D70Z Performance of Urinary Filtration, Intermittent, Less than 6 Hours Per Day (ICD-10-PCS; principal; 2022-05-26)
PROC: 30233N1 Transfusion of Nonautologous Red Blood Cells into Peripheral Vein, Percutaneous Approach (ICD-10-PCS; 2022-05-26)
DX: D64.9 Anemia, unspecified (principal); N18.6 End stage renal disease; I12.0 Hypertensive chronic kidney disease with stage 5 chronic kidney disease or end stage renal disease; E11.22 Type 2 diabetes mellitus with diabetic chronic kidney disease; Z99.2 Dependence on renal dialysis; K21.9 Gastro-esophageal reflux disease without esophagitis; E78.5 Hyperlipidemia, unspecified; R91.1 Solitary pulmonary nodule
CPT/HCPCS: 36415; 36430; 80053; 83735; 84100; 85025; 85610; 85730; 86803; 86850; 86900; 86901; 86922; 87340; 93005; 93010; 99285-25; C9803-CS; P9058; U0003; U0005

== ENCOUNTER 2023-05-15 17:28 | Emergency (ER) | payer OTHER ==
[2023-05-15 17:37] VITALS: BP 148/71; PULSE 76; RESP 18; TEMP 97.9; BMI 29.9
[2023-05-15] MEDS ORDERED: ACETAMINOPHEN 325 MG TABLET (FP) PO ONE (18:37)
[2023-05-15] MEDS ORDERED: ACETAMINOPHEN 325 MG TABLET (FP) ONE (18:38)
== END 2023-05-15 18:44 | disposition home or self-care (01) ==
LOC: JERFT 17:28
PROC: 0HQ0XZZ Repair Scalp Skin, External Approach (ICD-10-PCS; principal; 2023-05-15)
DX: S01.01XA Laceration without foreign body of scalp, initial encounter (principal); W01.198A Fall on same level from slipping, tripping and stumbling with subsequent striking against other object, initial encounter; Y93.89 Activity, other specified; Y92.009 Unspecified place in unspecified non-institutional (private) residence as the place of occurrence of the external cause
CPT/HCPCS: 70450-TC; 99284-25

== ENCOUNTER 2025-05-05 10:18 | Emergency (ER) | payer OTHER ==
[2025-05-05 10:25] VITALS: BP 160/85; PULSE 78; RESP 20; TEMP 98.1; BMI 29.1
[2025-05-05 11:45] LABS: BG HCT 37.0 % (35.4-49); VENOUS BASE EXCESS -9.7 mmol/L (-2-2); VENOUS O2 SATURATION 77.9 % (70-80); VENOUS PCO2 44.6 mmHg (38-52); VENOUS PH 7.217 (7.310-7.410)
[2025-05-05 11:47] LABS: ABSOLUTE IMMATURE GRANULOCYTES 0.02 x10^3/uL (0.0-0.031); BASOPHILS # 0.04 x10^3/uL (0.01-0.08); EOSINOPHIL % 4.6 % (0.8-7.0); EOSINOPHILS # 0.25 x10^3/uL (0.04-0.54); MCHC 31.0 g/dl (32.3-36.5); MEAN CELL VOLUME 99.7 fl (79.0-92.2); MEAN PLT VOLUME 9.6 fl (9.4-12.4); MONOCYTE # 0.42 x10^3/uL (0.30-0.82); MONOCYTE % 7.7 % (5.3-12.2); RDW 14.4 % (12.2-16.1)
[2025-05-05] MEDS ORDERED: LIDOCAINE 2.5%/PRILOCAINE 2.5% (5 Gram/TUBE) TP ONE (11:51)
[2025-05-05 11:52] LABS: INR 0.97 (0.83-1.09); PROTHROMBIN TIME (PATIENT) 10.6 SEC (9.7-13.0)
[2025-05-05] MEDS: LIDOCAINE 2.5%/PRILOCAINE 2.5% (5 Gram/TUBE) TP ONE (11:53)
[2025-05-05] MEDS: LIDOCAINE HCL 5% TOP OINTMENT 50 GM TUBE TP ONE (11:53)
[2025-05-05 11:55] LABS: ACTIVATED PTT 31.2 SECONDS (25.2-36.5)
[2025-05-05 12:21] LABS: GLUCOSE,RANDOM 109 mg/dL (74-106)
[2025-05-05 12:22] LABS: CO2 17 mmol/L (21-32); TOT PROT 7.0 g/dl (6.4-8.2)
[2025-05-05 12:24] LABS: ALK PHOS 77 U/L (40-150)
[2025-05-05 12:27] LABS: CREATININE 9.47 mg/dL (0.55-1.3); SGOT/AST 15 U/L (5-34); SGPT/ALT 8 U/L (0-55)
[2025-05-05 12:47] LABS: HCV DIAGNOSTIC IN-HOUSE W/RFLX NON-REACTIVE (NONREACTIVE)
[2025-05-05 12:55] LABS: HIV INTERPRETATION NEGATIVE (NEGATIVE); N-TERMINAL BNP 50966.0 pg/mL (0-299.9)
== END 2025-05-05 13:42 | disposition left against medical advice (07) ==
LOC: JER 10:18
PROC: 0H96XZZ Drainage of Back Skin, External Approach (ICD-10-PCS; principal; 2025-05-05)
DX: S31.000A Unspecified open wound of lower back and pelvis without penetration into retroperitoneum, initial encounter (principal); R07.89 Other chest pain; R11.2 Nausea with vomiting, unspecified; X58.XXXA Exposure to other specified factors, initial encounter
CPT/HCPCS: 36415; 71045-TC-FY; 76705-TC; 80053; 82550; 82803; 83690; 83880; 84484; 85025; 85610; 85730; 86140; 86803; 87389; 87637-QW; 99285-25

== ENCOUNTER 2025-07-03 09:30 | Inpatient (IN) | payer MEDICARE, OTHER ==
[2025-07-03] MEDS: morphine CARPU-JECT 4 MG/1 ML DISP.SYRIN IVPUSH ONE (10:36)
[2025-07-03] MEDS ORDERED: ONDANSETRON 4 MG/2 ML VIAL ONE ×2 (10:37→16:05)
[2025-07-03] MEDS: ONDANSETRON 4 MG/2 ML VIAL IVPUSH ONE ×2 (10:45→16:14)
[2025-07-03] MEDS ORDERED: ACETAMINOPHEN INJECTION 100 ML ONE (10:57)
[2025-07-03] MEDS: ACETAMINOPHEN 1000 MG/100 ML BAG IVPB ONE (11:20)
[2025-07-03 11:22] LABS: MCHC 30.6 g/dl (32.3-36.5); MEAN CELL VOLUME 98.1 fl (79.0-92.2); MEAN PLT VOLUME 9.9 fl (9.4-12.4); RDW 14.3 % (12.2-16.1)
[2025-07-03] MEDS ORDERED: VANCOMYCIN 1 GM PREMIX (F) 1 GM/200 ML BAG ONE (11:22)
[2025-07-03] MEDS ORDERED: PIPERACILLIN/TAZOB 2.25 GM 2.25 GM/50 ML BAG IVPB ONE (11:22)
[2025-07-03 11:23] LABS: BG HCT 36.0 % (35.4-49); VENOUS BASE EXCESS -10.1 mmol/L (-2-2); VENOUS O2 SATURATION 43.0 % (70-80); VENOUS PCO2 40.5 mmHg (38-52); VENOUS PH 7.234 (7.310-7.410)
[2025-07-03 11:28] LABS: GLUCOSE,RANDOM 87 mg/dL (74-106); TOT PROT 6.5 g/dl (6.4-8.2)
[2025-07-03 11:30] LABS: CO2 13 mmol/L (21-32)
[2025-07-03 11:31] LABS: ALK PHOS 78 U/L (40-150); INR 1.17 (0.83-1.09); PROTHROMBIN TIME (PATIENT) 12.8 SEC (9.7-13.0)
[2025-07-03 11:33] LABS: ACTIVATED PTT 32.5 SECONDS (25.2-36.5)
[2025-07-03] MEDS: PIPERACILLIN/TAZOB 2.25 GM 2.25 GM in DEXTROSE 5%-WATER - 50 ML IVPB ONE (11:33)
[2025-07-03 11:34] LABS: CREATININE 10.21 mg/dL (0.55-1.3); SGOT/AST 18 U/L (5-34); SGPT/ALT 13 U/L (0-55)
[2025-07-03] MEDS: SODIUM CHLORIDE 0.9% 500 ML INFUS.BAG IV ONE (12:08)
[2025-07-03] MEDS: VANCOMYCIN 1,000 MG in DEXTROSE 5%-WATER - 250 ML IVPB ONE (12:08)
[2025-07-03] MEDS ORDERED: SODIUM CHLORIDE 250 ML IV PRN (13:40)
[2025-07-03] MEDS ORDERED: NALOXONE HCL 0.4 MG/ML VIAL IVPUSH PRN (18:19)
[2025-07-03] MEDS: ACETAMINOPHEN 1000 MG/100 ML BAG IVPB PRN (20:45)
[2025-07-03] MEDS: methylPREDNISolone NA SUCC 40 MG/1 ML VIAL IVPUSH ONE (20:48)
[2025-07-03] MEDS: LIDOCAINE 5% TOPICAL PATCH TP SCH (20:48)
[2025-07-03 21:02] LABS: HEPATITIS B SURF AG NON-MATERN NON-REACTIVE (NONREACTIVE)
[2025-07-03 21:08] LABS: HCV DIAGNOSTIC IN-HOUSE W/RFLX NON-REACTIVE (NONREACTIVE)
[2025-07-03 21:12] VITALS: BMI 35.9
[2025-07-03] MEDS: LABETALOL HCL 100 MG, LABETALOL HCL 200 MG PO SCH (21:29)
[2025-07-03] MEDS ORDERED: ALBUTEROL SO4 2.5/IPRATROPIUM 0.5 INH SOL 3 ML VIAL.NEB. NEB PRN (22:32)
[2025-07-04] MEDS: PIPERACILLIN/TAZOB 2.25 GM 2.25 GM in DEXTROSE 5%-WATER - 50 ML IVPB SCH (02:13)
[2025-07-04 06:31] LABS: MCHC 31.5 g/dl (32.3-36.5); MEAN CELL VOLUME 95.0 fl (79.0-92.2); MEAN PLT VOLUME 10.1 fl (9.4-12.4); RDW 14.6 % (12.2-16.1)
[2025-07-04 07:22] LABS: GLUCOSE,RANDOM 143 mg/dL (74-106); TOT PROT 6.4 g/dl (6.4-8.2)
[2025-07-04 07:23] LABS: CO2 24 mmol/L (21-32)
[2025-07-04] MEDS: LIDOCAINE 5% TOPICAL PATCH TP SCH (07:24)
[2025-07-04 07:25] LABS: ALK PHOS 62 U/L (40-150)
[2025-07-04 07:28] LABS: CREATININE 7.61 mg/dL (0.55-1.3); SGOT/AST 23 U/L (5-34); SGPT/ALT 9 U/L (0-55)
[2025-07-04] MEDS: CALCIUM ACETATE 667 MG CAPSULE (FP) PO SCH (08:08)
[2025-07-04] MEDS: LIDOCAINE PATCH REMOVAL MC SCH (08:08)
[2025-07-04] MEDS: PANTOPRAZOLE 40 MG TABLET PO SCH (09:48)
[2025-07-04] MEDS: amLODIPine BESYLATE 10 MG TABLET (FP) PO SCH (09:48)
[2025-07-04] MEDS ORDERED: ONDANSETRON 4 MG/2 ML VIAL ONE (10:49)
[2025-07-04] MEDS: ONDANSETRON 4 MG/2 ML VIAL IVPUSH PRN (10:49)
[2025-07-04] MEDS: FLU VACC TS2025-26(6MOS UP)/PF 45 MCG/0.5 ML SYRINGE IM ONE (10:59)
[2025-07-04] MEDS: ACETAMINOPHEN 1000 MG/100 ML BAG IVPB PRN (12:04)
[2025-07-04] MEDS ORDERED: SODIUM CHLORIDE 250 ML IV PRN (12:28)
[2025-07-04] MEDS: VANCOMYCIN 500 MG in DEXTROSE 5%-WATER 100 ML IVPB ONE (15:11)
[2025-07-04 19:11] LABS: BODY FLUID MONOCYTE 6 %
[2025-07-05 07:16] LABS: GLUCOSE,RANDOM 68 mg/dL (74-106); TOT PROT 6.1 g/dl (6.4-8.2)
[2025-07-05 07:17] LABS: CO2 23 mmol/L (21-32)
[2025-07-05 07:19] LABS: ALK PHOS 60 U/L (40-150)
[2025-07-05 07:21] LABS: SGOT/AST 26 U/L (5-34); SGPT/ALT 7 U/L (0-55)
[2025-07-05 07:22] LABS: CREATININE 9.52 mg/dL (0.55-1.3)
[2025-07-05] MEDS: KETOROLAC TROMETHAMINE 30 MG/1 ML VIAL IVPUSH ONE (10:14)
[2025-07-05] MEDS: EPOETIN ALFA-EPBX 4,000 UNIT/ML VIAL IVPUSH ONE (15:27)
[2025-07-05] MEDS: VANCOMYCIN/WATER FOR INJ (PEG) 1,000 MG/200 ML BAG IVPB ONE (17:44)
[2025-07-06 06:33] LABS: MCHC 31.2 g/dl (32.3-36.5); MEAN CELL VOLUME 96.2 fl (79.0-92.2); MEAN PLT VOLUME 10.2 fl (9.4-12.4); RDW 15.1 % (12.2-16.1)
[2025-07-06 06:56] LABS: GLUCOSE,RANDOM 100.0 mg/dL (74-106); TOT PROT 6.0 g/dl (6.4-8.2)
[2025-07-06 06:57] LABS: CO2 28.0 mmol/L (21-32)
[2025-07-06 06:58] LABS: ALK PHOS 67.0 U/L (40-150)
[2025-07-06 07:01] LABS: SGOT/AST 44.0 U/L (5-34); SGPT/ALT 11.0 U/L (0-55)
[2025-07-06 07:02] LABS: CREATININE 6.59 mg/dL (0.55-1.3)
[2025-07-06] MEDS: KETOROLAC TROMETHAMINE 30 MG/1 ML VIAL IVPUSH SCH (19:00)
[2025-07-07 07:02] LABS: ABSOLUTE IMMATURE GRANULOCYTES 0.37 x10^3/uL (0.0-0.031); BASOPHILS # 0.11 x10^3/uL (0.01-0.08); EOSINOPHIL % 2.6 % (0.8-7.0); EOSINOPHILS # 0.45 x10^3/uL (0.04-0.54); MCHC 30.3 g/dl (32.3-36.5); MEAN CELL VOLUME 97.4 fl (79.0-92.2); MEAN PLT VOLUME 11.1 fl (9.4-12.4); MONOCYTE # 0.81 x10^3/uL (0.30-0.82); MONOCYTE % 4.8 % (5.3-12.2); RDW 15.4 % (12.2-16.1)
[2025-07-07 07:13] LABS: GLUCOSE,RANDOM 59 mg/dL (74-106); TOT PROT 5.8 g/dl (6.4-8.2)
[2025-07-07 07:14] LABS: CO2 25 mmol/L (21-32)
[2025-07-07 07:16] LABS: ALK PHOS 114 U/L (40-150)
[2025-07-07 07:19] LABS: CREATININE 7.82 mg/dL (0.55-1.3); SGOT/AST 48 U/L (5-34); SGPT/ALT 13 U/L (0-55)
[2025-07-07] MEDS: KETOROLAC TROMETHAMINE 30 MG/1 ML VIAL IVPUSH SCH ×2 (08:26→19:15)
[2025-07-07] MEDS ORDERED: SODIUM CHLORIDE 250 ML IV PRN ×2 (09:21→15:18)
[2025-07-07] MEDS ORDERED: ONDANSETRON 4 MG/2 ML VIAL IVPUSH PRN (15:18)
[2025-07-07] MEDS ORDERED: NALOXONE HCL 0.4 MG/ML VIAL IVPUSH PRN (15:18)
[2025-07-07] MEDS ORDERED: ALBUTEROL SO4 2.5/IPRATROPIUM 0.5 INH SOL 3 ML VIAL.NEB. NEB PRN (15:18)
[2025-07-07] MEDS ORDERED: ACETAMINOPHEN 1000 MG/100 ML BAG IVPB PRN (15:18)
[2025-07-07] MEDS: VANCOMYCIN 1,000 MG in DEXTROSE 5%-WATER - 250 ML IVPB SCH (16:03)
[2025-07-07] MEDS: PIPERACILLIN/TAZOB 2.25 GM 2.25 GM in DEXTROSE 5%-WATER - 50 ML IVPB SCH (17:39)
[2025-07-07] MEDS: CALCIUM ACETATE 667 MG CAPSULE (FP) PO SCH (18:34)
[2025-07-07 21:17] VITALS: RESP 18
[2025-07-07] MEDS: LIDOCAINE 5% TOPICAL PATCH TP SCH (21:18)
[2025-07-07] MEDS ORDERED: LABETALOL HCL 100 MG, LABETALOL HCL 200 MG PO SCH (22:00)
[2025-07-07] MEDS ORDERED: LIDOCAINE PATCH REMOVAL MC SCH (22:00)
[2025-07-07 23:47] VITALS: BP 106/62; PULSE 70; TEMP 97.9
[2025-07-08] MEDS ORDERED: LIDOCAINE PATCH REMOVAL MC SCH (08:00)
[2025-07-08] MEDS ORDERED: EPOETIN ALFA-EPBX 10,000 UNIT/ML VIAL SQ ONE ×2 (09:21)
[2025-07-08] MEDS ORDERED: amLODIPine BESYLATE 10 MG TABLET (FP) PO SCH (10:00)
[2025-07-08] MEDS ORDERED: PANTOPRAZOLE 40 MG TABLET PO SCH (10:00)
[2025-07-08] MEDS ORDERED: VANCOMYCIN/WATER FOR INJ (PEG) 1,000 MG/200 ML BAG IVPB SCH (17:00)
== END 2025-07-08 00:07 | disposition short-term general hospital (02) | DRG 559 ==
LOC: JER 09:30 → JERBED 12:50 → J2W 20:21 → J8W 07-07 12:39
PROVIDERS: ADMIT Student in an Organized Health Care Education/Training Program; ATTEND Family Medicine
PROC: 0S9C3ZZ Drainage of Right Knee Joint, Percutaneous Approach (ICD-10-PCS; principal; 2025-07-04)
PROC: 0W993ZZ Drainage of Right Pleural Cavity, Percutaneous Approach (ICD-10-PCS; 2025-07-04)
DX: T84.53XA Infection and inflammatory reaction due to internal right knee prosthesis, initial encounter (principal); J18.9 Pneumonia, unspecified organism; N18.6 End stage renal disease; M00.9 Pyogenic arthritis, unspecified; I12.0 Hypertensive chronic kidney disease with stage 5 chronic kidney disease or end stage renal disease; R78.81 Bacteremia; J90 Pleural effusion, not elsewhere classified; J98.11 Atelectasis; Z99.2 Dependence on renal dialysis; E11.22 Type 2 diabetes mellitus with diabetic chronic kidney disease; M25.561 Pain in right knee; M79.604 Pain in right leg; B95.62 Methicillin resistant Staphylococcus aureus infection as the cause of diseases classified elsewhere; Y83.9 Surgical procedure, unspecified as the cause of abnormal reaction of the patient, or of later complication, without mention of misadventure at the time of the procedure; K21.9 Gastro-esophageal reflux disease without esophagitis; E11.40 Type 2 diabetes mellitus with diabetic neuropathy, unspecified
CPT/HCPCS: 32555; 36415; 71045-TC-FY; 71046-TC-FY; 71250-TC; 73562-TC-RT-FY; 73706-TC-RT; 74176-TC; 76882-TC-RT-FY; 80048; 80053; 82550; 82746; 82803; 82962; 83605; 83690; 83735; 84100; 84484; 84550; 85025; 85610; 85651; 85730; 86140; 86704; 86803; 86850; 86900; 86901; 87040; 87070; 87075; 87077; 87081; 87101; 87116; 87205; 87206; 87340; 87517; 87637-QW; 93005; 93010; 93306-TC; 99285-25; G0480; Q5106